=== PATIENT | male | born 1950 | race Caucasian/White ===

== ENCOUNTER 2016-12-10 11:12 | Inpatient (IN) ==
[2016-12-10] MEDS ORDERED: Ipratropium/Albuterol Neb 3 ML IH ONE (11:19)
[2016-12-10] MEDS ORDERED: methylPREDNISolone 125 MG/2 ML VIAL IVP ONE (11:19)
--- NOTE | 2016-12-10 11:24 | Emergency Department Note ---
Disposition Clinical Impression: Acute exacerbation of chronic obstructive airways disease, Elevated troponin Disposition: Admitted As Inpatient Condition: Good Time of Disposition: 13:04 General Adult HPI - General Chief complaint: ED Shortness of Breath/Dyspnea Stated complaint: shortness of breath, chest heaviness Time Seen by Provider: 12/10/16 11:18 Nursing Notes Reviewed: Yes Vital Signs Reviewed: Yes - History of Present Illness HPI Narrative: 1-1/2 week history of shortness of breath. Significantly worse this morning. One episode of chest pain last night. None at this time. No radiation of the pain. No change in his sputum. Does have a cough that is chronic. - Related Data Home Medications Medication Instructions Recorded Confirmed ALPRAZolam [Xanax 0.25 MG Tablet] 0.25 mg PO BID PRN 12/10/16 12/10/16 Amoxicillin/Clavulanate [Augmentin] 875 mg PO BID 12/10/16 12/10/16 Apixaban [Eliquis] 5 mg PO DAILY 12/10/16 12/10/16 Aspirin [Lo-Dose Aspirin EC] 81 mg PO DAILY 12/10/16 12/10/16 Carvedilol [Coreg] 25 mg PO BID 12/10/16 12/10/16 Furosemide [Lasix] 40 mg PO DAILY PRN 12/10/16 12/10/16 Gabapentin [Neurontin] 300 mg PO QPM 12/10/16 12/10/16 Gabapentin [Neurontin] 600 mg PO HS 12/10/16 12/10/16 Insulin NPH Human Isophane 30 unit SQ QPM 12/10/16 12/10/16 [Novolin N] Insulin NPH Human Isophane 50 unit SQ QAM 12/10/16 12/10/16 [Novolin N] Insulin Regular, Human [Novolin R] 20 - 50 unit SQ TID 12/10/16 12/10/16 Lisinopril 2.5 mg PO DAILY 12/10/16 12/10/16 Loratadine [Claritin] 10 mg PO DAILY PRN 12/10/16 12/10/16 Potassium Chloride [K-Tab ER] 20 meq PO DAILY 12/10/16 12/10/16 Ropinirole HCl [Requip] 0.25 mg PO HS 12/10/16 12/10/16 Sertraline [Zoloft] 100 mg PO DAILY 12/10/16 12/10/16 Tiotropium [place] [Spiriva 1 puff IH DAILY 12/10/16 12/10/16 Respimat] Allergies Allergy/AdvReac Type Severity Reaction Status Date / Time No Known Drug Allergies Allergy See Verified 12/10/16 13:33 Comments All systems ED: reviewed and negative except as stated. Constitutional: Denies: fever, chills ENT ED: Denies: congestion Cardiovascular: Reports: chest pain (One episode last night. None today.). Denies: palpitations, dyspnea on exertion, syncope Respiratory: Reports: cough (Chronic), dyspnea (Increasingly worse over the past week and a half. Very dyspneic today.). Denies: wheezes Gastrointestinal: Denies: abdominal pain, nausea, vomiting, diarrhea Musculoskeletal: Denies: back pain, neck pain Neurological: Denies: headache, weakness Past Medical History - Past Medical History Medical history: Reports: CHF, COPD, diabetes, hyperlipidemia, hypertension Surgical history: Reports: pacemaker/AICD, other (Cardiac cath x2 with no stent placed.) Psychiatric history: Reports: depression - Social History Smoking Status: Former smoker (Quitted 15 years ago. Used to smoke 1 pack per day for 20~30 years.) Smokeless Tobacco Status: No Alcohol use: Reports: none Drug use: Reports: none Physical Exam - General Limitations: no limitations General appearance: alert, in distress (mild respiratory distress) - Head Head exam: atraumatic, normocephalic, normal inspection - Eye Eye exam: Present: normal appearance, PERRL, EOMI. Absent: scleral icterus - ENT ENT exam: normal exam, normal oropharynx, mucous membranes moist - Neck Neck exam: Present: normal inspection, full ROM, trachea midline. Absent: tenderness - Chest Chest inspection: Present: normal inspection, symmetric chest wall rise. Absent : tenderness - Respiratory Respiratory exam: Present: respiratory distress, wheezes (Mild.) - Cardiovascular Cardiovascular exam: Present: regular rate, normal rhythm, normal heart sounds - Abdominal Exam Abdominal exam: Present: soft, Non-Tender, normal bowel sounds. Absent: tenderness, distention, guarding, rebound, rigidity, organomegaly - Extremities Exam Extremities exam: Present: normal inspection, full ROM, normal capillary refill. Absent: tenderness, pedal edema - Back Exam Back exam: Present: normal inspection, full ROM. Absent: tenderness - Neurological Exam Neurological exam: Present: alert, oriented X3 - Psychiatric Psychiatric exam: Present: normal affect, normal mood - Skin Skin exam: Present: warm, dry, intact, normal color. Absent: rash, cyanosis, diaphoresis Course Course Narrative: Male patient presenting to the emergency department by EMS. Patient was found on the court steps. Complaining of shortness of breath. He had a group meeting today at the [facility]. He states that he has been increasingly short of breath over the past week and a half. It got worse this morning. He denies any change in his cough. He states he does occasionally have a green sputum but this is no different than normal. Does have a history of CHF. Chronically wears oxygen. He is alert and oriented 3 and breathing with pursed lips at this time. His lung sounds are remarkably clear however he just received a DuoNeb in the ambulance. Patient is obese. His heart tones are normal. His abdomen is soft and nontender. He denies any fevers or chills. He states that he had a fleeting episode of chest pain last night but denies any at this time. He described it as a pressure in the center of his chest. We will do a cardiac workup and get a chest x-ray. We will also give patient another DuoNeb while he is here and place him on steroids. - Reevaluation(s) Reevaluation #1: Patient reassessed. He states that he is feeling somewhat better. He is 91% on 3 L. He still appears slightly dyspneic. His lung sounds are clear. He still denies chest pain. There is no ST elevation or depression noted on his EKG. We will admit patient for COPD exacerbation as well as increased troponin. Time: 13:02 Vital Signs Temperature 97.7 F 12/10/16 11:14 Pulse Rate 91 12/10/16 11:14 Respiratory Rate 24 12/10/16 11:14 Blood Pressure 122/83 12/10/16 11:14 O2 Sat by Pulse Oximetry 96 12/10/16 11:14 Temperature 97.7 F 12/10/16 11:14 Pulse Rate 98 12/10/16 13:09 Respiratory Rate 22 12/10/16 14:31 Blood Pressure 144/73 12/10/16 14:31 O2 Sat by Pulse Oximetry 94 12/10/16 13:09 Oxygen Delivery Oxygen Delivery Nasal Cannula Medical Decision Making - Medical Records Medical records reviewed: Yes I reviewed the patient's medical records. - Lab Data Lab results reviewed: Yes I reviewed the patient's lab results. Result diagrams: 12/10/16 11:36 12/10/16 11:36 Lab Results 12/10/16 12/10/16 12/10/16 Range/Units 11:36 11:36 11:36 WBC 13.6 H (4.3-11.1) K/mcL RBC 5.53 H (4.19-5.50) M/mcL Hgb 14.8 (12.9-16.9) g/dL Hct 45.8 (37.5-50.1) % MCV 82.8 L (83.0-100.0) fL MCH 26.8 L (28.0-33.3) pg MCHC 32.3 (31.6-35.5) g/dL RDW 15.2 H (11.5-14.5) % Plt Count 203 (140-400) K/mcL MPV 10.9 (9.4-12.4) fL Immature Gran % 1.1 (0-4) % Seg Neutrophils % 78.9 % Lymphocytes % 13.1 % Monocytes % 5.9 % Eosinophils % 0.6 % Basophils % 0.4 % Neutrophils # 10.8 H (1.6-8.9) K/mcL Lymphocytes # 1.8 (0.6-4.6) K/mcL Monocytes # 0.8 (0.0-1.3) K/mcL Eosinophils # 0.1 (0.0-0.6) K/mcL Basophils # 0.1 (0.0-0.2) K/mcL Sodium 132 L (136-145) mEq/L Potassium 4.4 (3.5-4.5) mEq/L Chloride 95 L (98-109) mEq/L Carbon Dioxide 24 (19-29) mEq/L BUN 23 (8-26) mg/dL Creatinine 1.23 (0.72-1.25) mg/dL Est GFR ( Amer) > 60 (> 60) Est GFR (Non-Af Amer) 59 L (> 60) BUN/Creatinine Ratio 19 (6-26) Glucose 356 H (70-99) mg/dL Calculated Osmolality 292 (280-300) Calcium 10.2 (8.6-10.8) mg/dL Troponin I 0.04 H* (0-0.03) ng/mL B-Natriuretic Peptide (0-100) pg/mL 12/10/16 Range/Units 11:36 WBC (4.3-11.1) K/mcL RBC (4.19-5.50) M/mcL Hgb (12.9-16.9) g/dL Hct (37.5-50.1) % MCV (83.0-100.0) fL MCH (28.0-33.3) pg MCHC (31.6-35.5) g/dL RDW (11.5-14.5) % Plt Count (140-400) K/mcL MPV (9.4-12.4) fL Immature Gran % (0-4) % Seg Neutrophils % % Lymphocytes % % Monocytes % % Eosinophils % % Basophils % % Neutrophils # (1.6-8.9) K/mcL Lymphocytes # (0.6-4.6) K/mcL Monocytes # (0.0-1.3) K/mcL Eosinophils # (0.0-0.6) K/mcL Basophils # (0.0-0.2) K/mcL Sodium (136-145) mEq/L Potassium (3.5-4.5) mEq/L Chloride (98-109) mEq/L Carbon Dioxide (19-29) mEq/L BUN (8-26) mg/dL Creatinine (0.72-1.25) mg/dL Est GFR ( Amer) (> 60) Est GFR (Non-Af Amer) (> 60) BUN/Creatinine Ratio (6-26) Glucose (70-99) mg/dL Calculated Osmolality (280-300) Calcium (8.6-10.8) mg/dL Troponin I (0-0.03) ng/mL B-Natriuretic Peptide 115 H (0-100) pg/mL - Radiology Data Radiology results reviewed: Yes I reviewed the patient's radiology results. - EKG Data EKG #1 EKG attestation: Yes I reviewed and interpreted this EKG. EKG results narrative: Normal sinus rhythm at a rate of 93. VT interval is 183. Voodoo is 88. QT is 340. QTC is 391. No signs of acute ischemia. No significant EKG changes from previous EKG dated 08/14/2015. Attestation Statement - Attestation Attestation: I examined this patient and my medical decision-making was reviewed with the INSTRUMENT MAINTENANCE SUPERVISOR/PA/Advanced Practice Nurse/Resident Physician. I agree with the documented findings, disposition and treatment plan as described except to the extent set forth below. Patient emergency with shortness of breath. Positive chest pain last night but none today. Cough. No fever. Patient was found [place] the court [place] steps. On exam he is tachypneic. Expiratory wheezing. Plan. Patient improved with 2 nebs from medics. Improved after another when here. Steroids were given. Chest x-ray is unchanged from prior. EKG has no ischemic changes. He does have a troponin 0.04 for which she was given an aspirin. He is having no active chest pain at this time. He is admitted to medicine.
[2016-12-10 11:43] LABS: Basophils # 0.1 K/mcL (0.0-0.2); Basophils % 0.4 %; Eosinophils # 0.1 K/mcL (0.0-0.6); Eosinophils % 0.6 %; Hematocrit 45.8 % (37.5-50.1); Hemoglobin 14.8 g/dL (12.9-16.9); Immature Granulocytes % 1.1 % (0-4); Lymphocytes # 1.8 K/mcL (0.6-4.6); Lymphocytes % 13.1 %; Mean Corpuscular HGB Conc 32.3 g/dL (31.6-35.5); Mean Corpuscular Hemoglobin 26.8 pg (28.0-33.3); Mean Corpuscular Volume 82.8 fL (83.0-100.0); Mean Platelet Volume 10.9 fL (9.4-12.4); Monocytes # 0.8 K/mcL (0.0-1.3); Monocytes % 5.9 %; Neutrophils # 10.8 K/mcL (1.6-8.9); Platelet Count 203 K/mcL (140-400); Red Blood Count 5.53 M/mcL (4.19-5.50); Red Cell Distribution Width 15.2 % (11.5-14.5); Segmented Neutrophils % 78.9 %
[2016-12-10] MEDS ORDERED: Ondansetron 4 MG/2 ML VIAL IVP ONE (11:52)
[2016-12-10 11:55] LABS: BUN/Creatinine Ratio 19 (6-26); Blood Urea Nitrogen 23 mg/dL (8-26); Calcium 10.2 mg/dL (8.6-10.8); Carbon Dioxide 24 mEq/L (19-29); Chloride 95 mEq/L (98-109); Glucose 356 mg/dL (70-99); Osmolality,Calculated 292 (280-300); Potassium 4.4 mEq/L (3.5-4.5); Sodium 132 mEq/L (136-145); eGFR For African Americans > 60 (> 60); eGFR For Non-African Americans 59 (> 60)
--- NOTE | 2016-12-10 13:32 | Event Note ---
Date of Encounter: 12/10/16 Time of Encounter: 13:29 Patient seen and examined with nurse practitioner. Patient with history of COPD and non-ischemic cardiomyopathy with severe LV dysfunction presents with shortness of breath. Acute COPD exacerbation and an element of acute congestive heart failure. IV steroids and [id number] nebulizer treatments. Also give the patient IV Lasix. Slight increase in oxygen requirements. Currently on 3 L of oxygen. Expensive hospital stay 48-72 hours. Inpatient admission.
[2016-12-10] MEDS ORDERED: Aspirin 81 MG TAB.CHEW PO STA (13:54)
[2016-12-10] MEDS ORDERED: Ondansetron 4 MG/2 ML VIAL IVP PRN (14:22)
[2016-12-10] MEDS ORDERED: Naloxone 0.4 MG/ML INJ IVP PRN (14:22)
[2016-12-10] MEDS ORDERED: Albuterol 2.5 MG/3 ML NEBULIZER IH PRN (14:26)
[2016-12-10] MEDS ORDERED: ALPRAZolam 0.25 MG TABLET PO PRN (14:28)
[2016-12-10] MEDS ORDERED: *HR* Dextrose 50 % in Water (Syg) 50 ML SYRINGE IVP PRN (14:38)
[2016-12-10] MEDS ORDERED: Dextrose Gel 15 GM PO PRN ×2 (14:38)
[2016-12-10] MEDS ORDERED: D5% in Water 1,000 ML IVC PRN (14:38)
--- NOTE | 2016-12-10 14:45 | Internal Med History&Physical ---
Date of Encounter: 12/10/16 Time of Encounter: 13:30 Assessment and Plan (1) Acute exacerbation of chronic obstructive airways disease Current visit: Yes Status: Acute 1 patient has history of COPD and is oxygen dependent. He has been experiencing increasing shortness of breath for the past week despite the use of oxygen as well as bronchodilators. Presently his lung sounds are clear. We will continue with oxygen titrated to maintain SPO2 greater than 92% 2 continue bronchodilators 3 give a steroid- taper 4 patient has been producing green sputum we will give him Levaquin (2) CHF (congestive heart failure) Current visit: Yes Status: Acute 1 patient is experiencing increasing shortness of breath he states he is taking his medication as prescribed. Review of records echo not determined EF however patient states it is approximately 15%. Patient does have pacemaker AICD. We will give IV Lasix for now 2 monitor intake and output daily weights 3 sodium diet 4 fluid restriction 5 we will obtain cardiac echo Qualifiers: Congestive heart failure type: systolic Congestive heart failure chronicity : chronic Qualified Code(s): I50.22 - Chronic systolic (congestive) heart failure (3) Diabetes Current visit: No Status: Chronic 1 Accu-Cheks before meals at bedtime for sinus scale insulin as well as basal. Goal is to maintain postprandial less than 180. 2 diabetic diet Qualifiers: Diabetes mellitus type: type 2 Diabetes mellitus complication status: without complication 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: with fpc use Qualified Code(s): E11.9 - Type 2 diabetes mellitus without complications ; Z79.4 - exterminator termite (current) use of insulin (4) DVT prophylaxis Current visit: No Status: Acute Patient is on Elavil plus Internal Medicine - H&P: HPI Chief complaint: Shortness of breath Admitted From: Emergency Dept Plans for Post Hospital Care: Home History of present illness: Mr. Wright is a 66 year old male past medical history of diabetes coronary disease congestive heart failure with pacemaker AICD COPD on oxygen DVT. According to the patient for the past week he has been expressing increasing shortness of breath as well as cold symptoms. His sisters of breath did improve at times with use of bronchodilators and he has been coughing up some green sputum which is new. He denies any fevers or chills. He has been expressing chest tightness off and on for the past 3 days midsternal nonradiating there are no aggravating or relieving factors. He states the episodes are brief and resolve on own. Today he was sitting on the courthouse steps was expected C increasing shortness of breath he was brought to the ER for evaluation. According E were our records on presentation patient was pursed breathing oxygen saturating 94% patient was given DuoNeb which did improve his breathing. He was admitted for further workup evaluation. Present patient is on. Respiratory distress his lung sounds are clear he does have some +1 pitting edema bilaterally to lower extremities. Heart sounds S1-S2 no rubs gallops clicks murmurs noted he is hemodynamically stable this time review this case with Dr. Farrell who agrees with plan Past Med Surg Social Fam HX - Past Medical History Medical history: CHF, COPD, diabetes, hyperlipidemia, hypertension Psychiatric history: depression - Past Surgical History Surgical History: pacemaker/AICD, other (Cardiac cath x2 with no stent placed.) - Social History Smoking Status: Former smoker (Quitted 15 years ago. Used to smoke 1 pack per day for 20~30 years.) Smokeless Tobacco Status: No Alcohol use: none Drug use: none - Family History Mother Living Status: Hx Family Cancer: Yes (brain tumor) Father Living Status: Hx Family Respiratory Disorders: Yes (COPD) Hx Family Endocrine Disorder: Yes (DM) Internal Medicine - H&P: Meds ALPRAZolam [Xanax 0.25 MG Tablet] 0.25 mg PO BID PRN 12/10/16 [History] Amoxicillin/Clavulanate [Augmentin] 875 mg PO BID 12/10/16 [History] Apixaban [Eliquis] 5 mg PO DAILY 12/10/16 [History] Aspirin [Lo-Dose Aspirin EC] 81 mg PO DAILY 12/10/16 [History] Carvedilol [Coreg] 25 mg PO BID 12/10/16 [History] Furosemide [Lasix] 40 mg PO DAILY PRN 12/10/16 [History] Gabapentin [Neurontin] 300 mg PO QPM 12/10/16 [History] Gabapentin [Neurontin] 600 mg PO HS 12/10/16 [History] Insulin NPH Human Isophane [Novolin N] 30 unit SQ QPM 12/10/16 [History] Insulin NPH Human Isophane [Novolin N] 50 unit SQ QAM 12/10/16 [History] Insulin Regular, Human [Novolin R] 20 - 50 unit SQ TID 12/10/16 [History] Lisinopril 2.5 mg PO DAILY 12/10/16 [History] Loratadine [Claritin] 10 mg PO DAILY PRN 12/10/16 [History] Potassium Chloride [K-Tab ER] 20 meq PO DAILY 12/10/16 [History] Ropinirole HCl [Requip] 0.25 mg PO HS 12/10/16 [History] Sertraline [Zoloft] 100 mg PO DAILY 12/10/16 [History] Tiotropium [place] [Spiriva Respimat] 1 puff IH DAILY 12/10/16 [History] Allergies No Known Drug Allergies Allergy (Verified 12/10/16 13:33) See Comments All Systems PM: A 10-system review of systems was performed and is negative for pertinent findings except as documented above in the HPI. - Constitutional Constitutional: no chills, no fever(s), no night sweats - EENT Eyes: no change in vision, no discharge, no pain, no photophobia Nose, mouth and throat: no dysphagia, no nasal discharge, no neck pain, no sore throat - Cardiovascular Cardiovascular ROS IM: chest pain - Respiratory Respiratory: cough, dyspnea, change in phlegm color - Gastrointestinal Gastrointestinal: no abdominal pain, no diarrhea, no hematemesis, no hematochezia, no melena, no nausea, no vomiting - Musculoskeletal Musculoskeletal ROS IM: no numbness, no tingling - Integumentary Integumentary IM: no rash, no unusual bruising - Neurological Neurological ROS: no confusion, no convulsions, no focal weakness, no numbness, no tingling, no tremor(s) - Constitutional Vitals: Temp Pulse Resp BP Pulse Ox 97.7 F 98 22 144/73 94 12/10/16 11:14 12/10/16 13:09 12/10/16 14:31 12/10/16 14:31 12/10/16 13:09 General appearance: Present: A&O X 3, answers questions appropriately - Head Head exam: Present: atraumatic, normocephalic - Eye Eye exam: Present: PERRL, conjuntiva pink, sclera anicteric Pupils: Present: PERRL - Neck Neck exam general surgery: Present: supple, trachea midline. Absent: lymphadenopathy - Respiratory Respiratory exam: Present: CTAB - Cardiovascular Cardiovascular exam: Present: RRR, +S1, +S2. Absent: diastolic murmur, gallop, rubs, systolic murmur - GI/Abdominal GI/Abdominal exam: Present: normal bowel sounds, soft, no peritoneal signs. Absent: distended, tenderness - Extremities Exam Extremities exam: Present: warm, radial pulses palpable and symetrical. Absent : calf tenderness, cyanotic, pedal edema - Neurological Exam Neurological exam: Present: CN II-XII intact, oriented X3, no focal deficits. Absent: pronater drift, facial droop, speech deficit - Skin Skin exam: Present: dry, intact Internal Med - H&P Results - Labs CBC & Chem 7: 12/10/16 11:36 12/10/16 11:36 - EKG Data EKG shows normal: sinus rhythm - EKG Data Prior EKG available for review: yes When compared to previous EKG: there is no significant change - Diagnostic Studies Other Images Additional comments: Chest X-Ray 12/10/16 11:19 IMPRESSION: Stable appearance of the chest without acute cardiopulmonary process identified. D/ / Jayden Bautista MD / Jayden Bautista MD Interpreting Provider: Jayden Bautista MD
[2016-12-10] MEDS: Ipratropium/Albuterol Neb 3 ML IH SCH ×3 (15:29→23:10)
[2016-12-10] MEDS ORDERED: Insulin LISPRO 300 UNITS/3 ML VIAL SQ SCH ×2 (16:30→21:00)
[2016-12-10] MEDS ORDERED: Ipratropium/Albuterol Neb 3 ML IH SCH (17:00)
[2016-12-10] MEDS: Levofloxacin 500 MG/100 ML 500 MG/100 ML BAG IVPB SCH (17:23)
[2016-12-10] MEDS: Gabapentin 300 MG CAPSULE PO SCH ×2 (17:24→21:05)
--- NOTE | 2016-12-10 17:29 | Electrocardiograph Report ---
[place] [employer] Test Date: 2016-12-10 Pat Name: Angel Wright Department: 105 Room: 2A43 Gender: M Inspector Handbag Frames: : 1950 Requested By: Nieves Rice Order Number: [id number] Reading MD: Oral Mcduffie MD Measurements Intervals [place] Rate: 93 P: 13 TX: 183 QRS: -45 QRSD: 88 T: 109 QT: 340 QTc: 391 Interpretive Statements SINUS RHYTHM ANTERIOR MYOCARDIAL INFARCTION [40+ ms Q WAVE AND/OR ST/T ABNORMALITY IN V3/V4], OF INDETERMINATE AGE INFERIOR MYOCARDIAL INFARCTION [40+ ms Q WAVE AND/OR ST/T ABNORMALITY IN II/aVF], OF INDETERMINATE AGE INTERPRETATION BASED ON A DEFAULT AGE OF 40 YEARS Electronically Signed On 12-10-2016 17:27:30 EDT by Oral Mcduffie MD
[2016-12-10] MEDS ORDERED: Insulin NPH 100 UNIT/ML (x5UNIT) SQ SCH (18:00)
[2016-12-10] MEDS ORDERED: methylPREDNISolone 125 MG/2 ML VIAL IM SCH (18:00)
[2016-12-10] MEDS: rOPINIRole 0.25 MG TABLET PO SCH (21:05)
[2016-12-10] MEDS ORDERED: Insulin LISPRO 300 UNITS/3 ML VIAL SQ ONE (23:15)
[2016-12-10] MEDS: methylPREDNISolone 125 MG/2 ML VIAL IVP SCH (23:45)
[2016-12-11] MEDS ORDERED: Insulin LISPRO 300 UNITS/3 ML VIAL SQ ONE (02:26)
[2016-12-11] MEDS: Ipratropium/Albuterol Neb 3 ML IH SCH ×5 (04:27→20:17)
[2016-12-11 04:52] LABS: Hematocrit 43.2 % (37.5-50.1); Hemoglobin 13.9 g/dL (12.9-16.9); Lymphocytes % 6.6 %; Mean Corpuscular HGB Conc 32.2 g/dL (31.6-35.5); Mean Corpuscular Hemoglobin 26.7 pg (28.0-33.3); Mean Corpuscular Volume 83.1 fL (83.0-100.0); Mean Platelet Volume 11.8 fL (9.4-12.4); Platelet Count 183 K/mcL (140-400); Segmented Neutrophils % 89.7 %
[2016-12-11 04:53] LABS: Basophils % 0.1 %; Lymphocytes # 0.7 K/mcL (0.6-4.6); Monocytes # 0.3 K/mcL (0.0-1.3); Monocytes % 2.6 %; Neutrophils # 9.6 K/mcL (1.6-8.9)
[2016-12-11 05:05] LABS: Blood Urea Nitrogen 29 mg/dL (8-26); Carbon Dioxide 22 mEq/L (19-29); Chloride 99 mEq/L (98-109); Potassium 4.6 mEq/L (3.5-4.5); Sodium 133 mEq/L (136-145)
[2016-12-11 05:06] LABS: BUN/Creatinine Ratio 22 (6-26); Calcium 9.6 mg/dL (8.6-10.8); Glucose 467 mg/dL (70-99); Osmolality,Calculated 302 (280-300); eGFR For African Americans > 60 (> 60); eGFR For Non-African Americans 55 (> 60)
[2016-12-11 05:46] LABS: Platelet Estimate Normal (Normal)
[2016-12-11] MEDS: methylPREDNISolone 125 MG/2 ML VIAL IVP SCH (06:00)
[2016-12-11] MEDS ORDERED: Acetaminophen 325 MG TABLET PO ONE (06:47)
[2016-12-11] MEDS ORDERED: Perflutren Lipid Microsphere 1.3 ML in 0.9 % Sodium Chloride 8.7 ML IVP ONE (07:25)
[2016-12-11] MEDS: Aspirin Enteric Coated 81 MG Tablet PO SCH (08:58)
[2016-12-11] MEDS ORDERED: APIXABAN 5 MG TABLET PO SCH (09:00)
[2016-12-11] MEDS ORDERED: Insulin NPH 100 UNIT/ML (x5UNIT) SQ SCH (09:00)
[2016-12-11] MEDS ORDERED: Furosemide 40 MG/4 ML VIAL IVP SCH (09:00)
[2016-12-11] MEDS: Insulin LISPRO 300 UNITS/3 ML VIAL SQ SCH ×2 (09:24→12:32)
[2016-12-11] MEDS: APIXABAN 5 MG TABLET PO SCH ×2 (09:24→20:57)
--- NOTE | 2016-12-11 09:52 | ECHO - Doppler Report ---
Echo with Imaging Enhancement Agent Name: Angel Wright Date of Study: 12/11/2016 Date: 1950 Ht: 72.0 in Medical Record#: [id number] Age: 66 Wt: 364.0 lb Gender: Male BSA: 2.75 Order #: [id number] Location: [facility] Room #: 2A43 Reading Physician: Felisha Iverson DO Tool Grinder Operator: Jewels Ardon Ordering Physician: Camille Freed CNP Primary Physician: Dana Hart MD Indications: Shortness of breath Impressions: Technically challenging study with suboptimal windows. With use of Definity, LV systolic function appears normal. RV size visually appears mildly dilated. Function is normal in images visualized. Doppler evidence for borderling aortic stenosis. No significant TR gradient to suggest the presence of pulmonary hypertension. IVC is not well visualized. Left Ventricular Wall Motion: Rest Echo Findings The apex, apical inferior, mid inferior, basal inferior, apical anterior, mid anterior and basal anterior bryant were not visualized. All other wall segments showed normal motion. Findings: Study Quality * Technically sub-optimal due to body habitus. Suboptimal windows, off-axis measurements. ECG Findings * Sinus rhythm with BBB. Aortic Valve * No aortic regurgitation. * Aortic valve not well visualized. * Doppler evidence for borderline aortic stenosis. PV 1.8m/s, MG 8 mmHg, DI 0.49, BRITTNY 1.5 cm2 Mitral Valve * No mitral regurgitation. * No mitral stenosis. * Normal mitral valve structure. Tricuspid Valve * Tricuspid valve not well visualized. * Trace tricuspid regurgitation. Pulmonic Valve * Pulmonic valve is not well visualized. * No pulmonic stenosis. * No pulmonic regurgitation. Pulmonary Artery * Pulmonary artery not well visualized. Right Ventricle * RV is not well visualized in all views. In visualized view, it appears normal in function. Visually, mildly dilated. Aorta * Not well visualized. Left Atrium * Normal left atrial size. Right Atrium * Right atrium is not well visualized. Left Ventricle * Indeterminate diastolic function. * Suboptimal LV measurements due to poor PLAX window. * Definity echo contrast was used. * LV systolic function appears normal with use of Definity. Interatrial Septum * Interatrial septum not well evaluated. IVC * The IVC is not well evaluated. History Hypertension Diabetes Hypercholesteremia Years 45 Packs 2 Family History of CAD History of CAD/PTCA Myocardial Infarction Congestive Heart Failure Pacer/ICD Implant 08/13/2015 a Previous Echo was performed. Contrast: Definity 1.3 ml in 8.7 ml of saline 2 ml. Measurements: BP: 124/ 71 2D Normal Values RVIDd: 3.60 cm <2.7 cm IVSd: 1.75 cm 0.6 - 1.0 cm LVIDd: 5.80 cm 3.7 - 5.6 cm LVPWd: 1.75 cm 0.6 - 1.1 cm LVIDs: 5.10 cm 1.5 - 3.6 cm AO: 3.60 cm < 4.0 cm LA: 5.40 cm 2.0 - 4.0cm %FS: 12.10 cm >25 % LVOT Diam: 2.20 cm LA volume: 90 Mitral Valve Peak E:.67 m/sec Peak A:.64 m/sec E/A Ratio:1 Peak E' Lat Murray:8.29 cm/s Peak E' Med Murray:4.87 cm/s E/E' Lat Ratio:8 E/E' Med Ratio:13.7 LVOT Peak Murray:.78 m/sec Mean Murray:.57 m/sec Peak Grad:2.00 mmHg Mean Grad:1.00 mmHg Aortic Valve Peak Murray:2.50 m/sec Mean Murray:1.72 m/sec Peak Grad:25.00 mmHg Mean Grad:14.00 mmHg Valve Area:1.31 cm2 Tricuspid Valve TV Regurg Peak Grad: 12.00mmHg TV Regurg Peak Murray: 1.71m/sec Updated by Felisha Iverson on 12/11/2016 9:47:46 AM electronically signed on 12/11/2016 9:48:47 AM with status of Final Wall Motion Felipe: 1=Normal, 2=Hypokinesis, 3=Akinesis, 4=Dyskinesis, 5=Aneurysmal, 6=Hyperkinetic, X=Not Visualized (Blank)=Missing
[2016-12-11] MEDS: Tiotropium 18 MCG inhalation IH SCH (10:52)
--- NOTE | 2016-12-11 11:14 | Internal Med Progress Note ---
Date of Encounter: 12/11/16 Time of Encounter: 11:12 - Assessment and plan (1) CHF (congestive heart failure) Current Visit: Yes Status: Acute Assessment and plan: I will switch Lasix to PO today. He received IV Lasix yesterday and this morning. Improvement in his respiratory status. Qualifiers: Congestive heart failure type: systolic Congestive heart failure chronicity : chronic Qualified Code(s): I50.22 - Chronic systolic (congestive) heart failure (2) Diabetes Current Visit: No Status: Chronic Assessment and plan: Uncontrolled diabetes because of steroids. IV steroids switched to oral steroids. Continue long-acting insulin. Continue premium insulin every 4 hours. Increased scale to moderate scale. Qualifiers: Diabetes mellitus type: type 2 Diabetes mellitus complication status: without complication Diabetes mellitus alf insulin use: with alf use Qualified Code(s): E11.9 - Type 2 diabetes mellitus without complications ; Z79.4 - senior living (current) use of insulin (3) Acute exacerbation of chronic obstructive airways disease Current Visit: Yes Status: Acute Assessment and plan: Improvement over respiratory status. Will continue kill for our nebulizer treatments. Switch steroids to oral steroids. He is on Levaquin for acute bronchitis. - Constitutional Vitals: Temp Pulse Resp BP Pulse Ox 97.4 F L 80 20 124/71 96 12/11/16 06:43 12/11/16 06:43 12/11/16 06:43 12/11/16 06:43 12/11/16 06:43 General appearance: Present: A&O X 3, answers questions appropriately Exam: Gen.: patient is alert oriented times 3 not in distress. Cardiac: normal S1 S2 no additional sounds or murmurs chest: fair air entry. expiratory wheeze. No crackles or bronchial breathing. abdomen: soft nontender nondistended normal bowel sounds neuro: no focal deficit LE" trace swelling Internal Medicine: Result - Labs CBC & Chem 7: 12/11/16 04:15 12/11/16 04:15 Labs: Short CBC 12/11/16 Range/Units 04:15 WBC 10.7 (4.3-11.1) K/mcL Hgb 13.9 (12.9-16.9) g/dL Hct 43.2 (37.5-50.1) % Plt Count 183 (140-400) K/mcL Neutrophils # 9.6 H (1.6-8.9) K/mcL BMP 12/11/16 04:15 Sodium 133 L Potassium 4.6 H Chloride 99 Carbon Dioxide 22 BUN 29 H Creatinine 1.32 H Glucose 467 H Calcium 9.6 Cardiac Enzymes 12/10/16 12/10/16 Range/Units 17:23 23:58 Troponin I 0.02 0.03 (0-0.03) ng/mL Consult Discharge Plan - Plan Referrals: Myles Hart MD [Primary Care Provider] -
[2016-12-11] MEDS ORDERED: MethylPREDNISolone 40 MG/ML VIAL IVP SCH (12:00)
[2016-12-11] MEDS ORDERED: Insulin LISPRO 300 UNITS/3 ML VIAL SQ SCH (12:00)
[2016-12-11] MEDS: predniSONE 20 MG TABLET PO SCH (12:33)
[2016-12-11] MEDS: 0.9 % Sodium Chloride 500 ML IVC ONE ×2 (12:34→14:47)
[2016-12-11 13:24] LABS: Calcium 9.6 mg/dL (8.6-10.8); Potassium 4.4 mEq/L (3.5-4.5)
[2016-12-11] MEDS: Insulin Human Regular 100 UNIT in 0.9 % Sodium Chloride 100 ML IVC SCH ×2 (14:38→21:45)
[2016-12-11] MEDS ORDERED: 0.9 % Sodium Chloride 500 ML ONE (14:45)
[2016-12-11] MEDS: Fluticasone Propionate Nasal 50 MCG/SPRAY BOTTLE NS SCH (17:11)
[2016-12-11] MEDS: Gabapentin 300 MG CAPSULE PO SCH ×2 (17:14→20:56)
[2016-12-11] MEDS: Levofloxacin 500 MG/100 ML 500 MG/100 ML BAG IVPB SCH (18:27)
[2016-12-11] MEDS: rOPINIRole 0.25 MG TABLET PO SCH (20:57)
[2016-12-11] MEDS: Acetaminophen 325 MG TABLET PO PRN (22:17)
[2016-12-12] MEDS: Ipratropium/Albuterol Neb 3 ML IH SCH ×7 (00:03→23:19)
[2016-12-12 05:05] LABS: Basophils % 0.2 %; Hematocrit 40.3 % (37.5-50.1); Hemoglobin 13.1 g/dL (12.9-16.9); Immature Granulocytes % 1.2 % (0-4); Lymphocytes # 1.3 K/mcL (0.6-4.6); Lymphocytes % 10.4 %; Mean Corpuscular HGB Conc 32.5 g/dL (31.6-35.5); Mean Corpuscular Hemoglobin 27.3 pg (28.0-33.3); Mean Platelet Volume 11.5 fL (9.4-12.4); Neutrophils # 10.3 K/mcL (1.6-8.9); Platelet Count 174 K/mcL (140-400); Segmented Neutrophils % 80.2 %
[2016-12-12 05:16] LABS: BUN/Creatinine Ratio 39 (6-26); Blood Urea Nitrogen 35 mg/dL (8-26); Carbon Dioxide 27 mEq/L (19-29); Chloride 104 mEq/L (98-109); Glucose 120 mg/dL (70-99); Magnesium 2.2 mg/dL (1.6-2.6); Osmolality,Calculated 297 (280-300); Potassium 4.1 mEq/L (3.5-4.5); Sodium 139 mEq/L (136-145); eGFR For African Americans > 60 (> 60); eGFR For Non-African Americans > 60 (> 60)
[2016-12-12] MEDS: Acetaminophen 325 MG TABLET PO PRN ×2 (06:35→20:27)
[2016-12-12] MEDS: Tiotropium 18 MCG inhalation IH SCH (07:39)
[2016-12-12] MEDS: APIXABAN 5 MG TABLET PO SCH ×2 (07:48→20:28)
[2016-12-12] MEDS: Aspirin Enteric Coated 81 MG Tablet PO SCH (07:48)
[2016-12-12] MEDS: predniSONE 20 MG TABLET PO SCH (07:48)
[2016-12-12] MEDS: Fluticasone Propionate Nasal 50 MCG/SPRAY BOTTLE NS SCH (07:49)
[2016-12-12] MEDS ORDERED: Furosemide 40 MG TABLET PO SCH (09:00)
[2016-12-12] MEDS ORDERED: 0.9 % Sodium Chloride 500 ML ONE (10:58)
[2016-12-12] MEDS ORDERED: *HR* Dextrose 50 % in Water (Syg) 50 ML SYRINGE IVP PRN (13:40)
[2016-12-12] MEDS ORDERED: D5% in Water 1,000 ML IVC PRN (13:40)
[2016-12-12] MEDS ORDERED: Dextrose Gel 15 GM PO PRN ×2 (13:40)
[2016-12-12] MEDS: Furosemide 40 MG TABLET PO SCH (14:02)
[2016-12-12] MEDS: Insulin LISPRO 300 UNITS/3 ML VIAL SQ SCH ×3 (14:07→16:43)
[2016-12-12] MEDS: Insulin DETEMIR 100 UNIT/ML X5UNITS SQ SCH ×2 (14:39→20:31)
[2016-12-12] MEDS: Gabapentin 300 MG CAPSULE PO SCH ×2 (17:30→20:28)
--- NOTE | 2016-12-12 17:50 | Internal Med Progress Note ---
Date of Encounter: 12/12/16 Time of Encounter: 17:47 - Assessment and plan (1) Uncontrolled type 2 diabetes mellitus with insulin therapy Current Visit: Yes Status: Acute Assessment and plan: Likely exacerbated by steroid treatment. He has been on insulin drip for the last 24 hours. We will stop insulin drip as his blood glucose is between 150 and 250. Convert to subcutaneous insulin with 80 units total Levemir daily, but he meal and moderate insulin sliding scale. (2) CHF (congestive heart failure) Current Visit: Yes Status: Acute Assessment and plan: I will continue with oral Lasix, daily weights, strict I's and O's. Qualifiers: Congestive heart failure type: systolic Congestive heart failure chronicity : chronic Qualified Code(s): I50.22 - Chronic systolic (congestive) heart failure (3) DVT prophylaxis Current Visit: No Status: Acute (4) Acute exacerbation of chronic obstructive airways disease Current Visit: Yes Status: Acute Assessment and plan: Oral prednisone 60 mg today and will start tapering tomorrow. Continue with bronchodilators. Antibiotics for bronchitis as a triggering event. - Subjective Interval history: Patient reports improvement in his shortness of breath over the last 2 days with steroid treatment and bronchodilators. He had received Lasix. He was placed on insulin drip yesterday. - Constitutional Vitals: Temp Pulse Resp BP Pulse Ox 97.5 F L 82 20 110/56 96 12/12/16 16:23 12/12/16 16:23 12/12/16 16:24 12/12/16 16:23 12/12/16 16:24 General appearance: Present: A&O X 3, answers questions appropriately - Respiratory Respiratory exam: Present: CTAB. Absent: accessory muscle use, rales, rhonchi, wheezes - Cardiovascular Cardiovascular exam: Present: RRR, +S1, +S2. Absent: diastolic murmur, gallop, rubs, systolic murmur - GI/Abdominal GI/Abdominal exam: Present: normal bowel sounds, soft, no peritoneal signs. Absent: distended, tenderness - Extremities Exam Extremities exam: Present: pedal edema, warm, radial pulses palpable and symetrical. Absent: calf tenderness, cyanotic - Skin Skin exam: Present: dry, intact Internal Medicine: Result - Labs CBC & Chem 7: 12/12/16 04:05 12/12/16 04:05 Labs: Short CBC 12/12/16 Range/Units 04:05 WBC 12.8 H (4.3-11.1) K/mcL Hgb 13.1 (12.9-16.9) g/dL Hct 40.3 (37.5-50.1) % Plt Count 174 (140-400) K/mcL Neutrophils # 10.3 H (1.6-8.9) K/mcL BMP 12/12/16 04:05 Sodium 139 Potassium 4.1 Chloride 104 Carbon Dioxide 27 BUN 35 H Creatinine 0.90 Glucose 120 H Calcium 9.0 Consult Discharge Plan - Plan Referrals: Myles Hart MD [Primary Care Provider] -
[2016-12-12] MEDS ORDERED: levoFLOXacin 500 MG TABLET PO SCH (18:00)
[2016-12-12] MEDS: rOPINIRole 0.25 MG TABLET PO SCH (20:27)
[2016-12-12] MEDS: Nystatin OINT 15 GM TUBE TP SCH (20:33)
[2016-12-12] MEDS ORDERED: Insulin LISPRO 300 UNITS/3 ML VIAL SQ SCH (21:00)
[2016-12-13] MEDS: Ipratropium/Albuterol Neb 3 ML IH SCH ×3 (05:03→11:22)
[2016-12-13 05:11] LABS: Basophils % 0.3 %; Eosinophils % 0.1 %; Hematocrit 43.8 % (37.5-50.1); Hemoglobin 13.8 g/dL (12.9-16.9); Immature Granulocytes % 1.3 % (0-4); Lymphocytes # 2.4 K/mcL (0.6-4.6); Lymphocytes % 27.2 %; Mean Corpuscular HGB Conc 31.5 g/dL (31.6-35.5); Mean Corpuscular Hemoglobin 26.4 pg (28.0-33.3); Mean Corpuscular Volume 83.9 fL (83.0-100.0); Mean Platelet Volume 11.3 fL (9.4-12.4); Monocytes # 0.7 K/mcL (0.0-1.3); Monocytes % 8.4 %; Neutrophils # 5.4 K/mcL (1.6-8.9); Platelet Count 165 K/mcL (140-400); Red Blood Count 5.22 M/mcL (4.19-5.50); Red Cell Distribution Width 14.8 % (11.5-14.5); Segmented Neutrophils % 62.7 %
[2016-12-13 05:22] LABS: BUN/Creatinine Ratio 26 (6-26); Blood Urea Nitrogen 26 mg/dL (8-26); Calcium 8.7 mg/dL (8.6-10.8); Carbon Dioxide 26 mEq/L (19-29); Chloride 100 mEq/L (98-109); Glucose 202 mg/dL (70-99); Osmolality,Calculated 289 (280-300); Sodium 134 mEq/L (136-145); eGFR For African Americans > 60 (> 60); eGFR For Non-African Americans > 60 (> 60)
[2016-12-13] MEDS: Tiotropium 18 MCG inhalation IH SCH (07:56)
[2016-12-13] MEDS: Insulin LISPRO 300 UNITS/3 ML VIAL SQ SCH ×4 (08:04→11:43)
[2016-12-13] MEDS: predniSONE 20 MG TABLET PO SCH (08:04)
[2016-12-13] MEDS: Furosemide 40 MG TABLET PO SCH (08:04)
[2016-12-13] MEDS: APIXABAN 5 MG TABLET PO SCH (08:04)
[2016-12-13] MEDS: Aspirin Enteric Coated 81 MG Tablet PO SCH (08:04)
[2016-12-13] MEDS: Acetaminophen 325 MG TABLET PO PRN (08:06)
[2016-12-13] MEDS: Insulin DETEMIR 100 UNIT/ML X5UNITS SQ SCH (08:07)
[2016-12-13] MEDS: Fluticasone Propionate Nasal 50 MCG/SPRAY BOTTLE NS SCH (08:10)
[2016-12-13] MEDS: Nystatin OINT 15 GM TUBE TP SCH (08:10)
[2016-12-13 11:14] VITALS: BP 112/76
--- NOTE | 2016-12-13 11:36 | Discharge Summary ---
Date of Encounter: 12/13/16 Time of Encounter: 11:34 - Discharge Diagnosis (1) Uncontrolled type 2 diabetes mellitus with insulin therapy Priority: Secondary Status: Acute (2) CHF (congestive heart failure) Priority: Secondary Status: Acute Qualifiers: Congestive heart failure type: systolic Congestive heart failure chronicity : chronic Qualified Code(s): I50.22 - Chronic systolic (congestive) heart failure (3) Acute exacerbation of chronic obstructive airways disease Priority: Primary Status: Acute (4) Respiratory infection Priority: Secondary Status: Acute (5) Morbid obesity with BMI of 45.0-49.9, adult Priority: Secondary Status: Acute (6) Chronic respiratory failure with hypoxia Priority: Secondary Status: Acute - Discharge Medications Prescriptions: Ipratropium/Albuterol Neb [Duoneb] 3 ml IH [id number] PRN #60 inhsol PRN Reason: Shortness of breath levoFLOXacin [Levaquin] 500 mg PO Q24H #7 tablet predniSONE [PredniSONE] 60 mg PO DAILY 14 Days Home Medications: ALPRAZolam [Xanax 0.25 MG Tablet] 0.25 mg PO BID PRN 12/10/16 [History] Apixaban [Eliquis] 5 mg PO BID 12/10/16 [History] Aspirin [Lo-Dose Aspirin EC] 81 mg PO DAILY 12/10/16 [History] Carvedilol [Coreg] 25 mg PO BID 12/10/16 [History] Furosemide [Lasix] 40 mg PO DAILY PRN 12/10/16 [History] Gabapentin [Neurontin] 300 mg PO QPM 12/10/16 [History] Gabapentin [Neurontin] 600 mg PO HS 12/10/16 [History] Insulin NPH Human Isophane [Novolin N] 30 unit SQ QPM 12/10/16 [History] Insulin NPH Human Isophane [Novolin N] 50 unit SQ QAM 12/10/16 [History] Insulin Regular, Human [Novolin R] 20 - 50 unit SQ TID 12/10/16 [History] Lisinopril 2.5 mg PO DAILY 12/10/16 [History] Loratadine [Claritin] 10 mg PO DAILY PRN 12/10/16 [History] Potassium Chloride [K-Tab ER] 20 meq PO DAILY 12/10/16 [History] Ropinirole HCl [Requip] 0.25 mg PO HS 12/10/16 [History] Sertraline [Zoloft] 100 mg PO DAILY 12/10/16 [History] Tiotropium [place] [Spiriva Respimat] 1 puff IH DAILY 12/10/16 [History] Ipratropium/Albuterol Neb [Duoneb] 3 ml IH [id number] PRN #60 inhsol 12/13/16 [Rx] levoFLOXacin [Levaquin] 500 mg PO Q24H #7 tablet 12/13/16 [Rx] predniSONE [PredniSONE] 60 mg PO DAILY 14 Days 12/13/16 [Rx] Allergies/Adverse Reactions: Allergies No Known Drug Allergies Allergy (Verified 12/10/16 13:33) See Comments Procedures/tests Complete & Pending: Procedures Performed prior 72 hours Category Date Time Status EV echocardiogram w enhance Routine Y 12/11/16 14:27 Completed Date of admission: 12/10/16 14:22 Primary care physician: Myles Hart MD - Patient Status Disposition: Home, Self-Care Condition: Good Functional capacity at discharge: uses cane/walker Overall status at discharge: patient is back to baseline - Discharge Instructions Follow Up With: Myles Hart MD [Primary Care Provider] - Additional Instructions: Follow a low-sodium diet, follow-up with primary care physician in 7-10 days. - Diet and Activity Activity: increase activity as tolerated Diet: diabetic diet, low fat, low cholesterol, low salt diet (Fluid restriction of 1500 mL daily) Hospital course: Mr. Wright is a 66 year old male with past medical history significant for type 2 diabetes, coronary artery disease, diastolic heart failure, COPD and morbid obesity who presented to the hospital for increasing shortness of breath and cold symptoms. He was diagnosed with COPD exacerbation and CHF exacerbation and admitted to the medical service. He received treatment with IV steroids, IV antibiotics and Lasix. His symptoms improved and he was transitioned to oral prednisone. Currently reports improvement and his shortness of breath and reports being back to baseline. He will be discharged home on a course of prednisone and Levaquin. He will be restarted on his home dose of Lasix and will resume oxygen by nasal cannula at 2 L/m per his home regimen. He has been instructed to follow a low-sodium diet. He was instructed to follow-up with his primary care physician within the next 7-10 days. He expresses understanding and agreement with the discharge plan. - Time Spent with Patient Total time spent providing and/or coordinating discharge services: - Constitutional Vitals: Temp Pulse Resp BP Pulse Ox 97.6 F 78 96 112/76 96 12/13/16 11:12 12/13/16 11:12 12/13/16 11:22 12/13/16 11:12 12/13/16 11:22 General appearance: Present: A&O X 3, answers questions appropriately - Respiratory Respiratory exam: Present: CTAB. Absent: accessory muscle use, rales, rhonchi, wheezes - Cardiovascular Cardiovascular exam: Present: RRR, +S1, +S2. Absent: diastolic murmur, gallop, rubs, systolic murmur - GI/Abdominal GI/Abdominal exam: Present: normal bowel sounds, soft, no peritoneal signs. Absent: distended, tenderness - Skin Skin exam: Present: dry, intact
== END 2016-12-13 14:13 | disposition home or self-care (01) | DRG 191 ==
LOC: 2ANU 11:12 → EMEROO 11:12 → SUATTDRO 14:22 → 2ANU 14:35
PROVIDERS: ADMIT Hospitalist; ATTEND Internal Medicine

== ENCOUNTER 2017-04-07 14:47 | Inpatient (IN) ==
[2017-04-07] MEDS ORDERED: methylPREDNISolone 125 MG/2 ML VIAL IVP ONE (14:57)
[2017-04-07] MEDS ORDERED: Ipratropium/Albuterol Neb 3 ML IH ONE (14:57)
[2017-04-07 15:33] LABS: Basophils # 0.1 K/mcL (0.0-0.2); Basophils % 0.6 %; Eosinophils # 0.2 K/mcL (0.0-0.6); Eosinophils % 2.1 %; Immature Granulocytes % 1.5 % (0-4); Lymphocytes # 2.1 K/mcL (0.6-4.6); Lymphocytes % 18.7 %; Mean Corpuscular HGB Conc 31.8 g/dL (31.6-35.5); Mean Corpuscular Hemoglobin 25.6 pg (28.0-33.3); Mean Corpuscular Volume 80.6 fL (83.0-100.0); Mean Platelet Volume 11.2 fL (9.4-12.4); Monocytes # 0.7 K/mcL (0.0-1.3); Monocytes % 6.7 %; Neutrophils # 7.8 K/mcL (1.6-8.9); Platelet Count 190 K/mcL (140-400); Red Blood Count 5.46 M/mcL (4.19-5.50); Red Cell Distribution Width 14.6 % (11.5-14.5); Segmented Neutrophils % 70.4 %
[2017-04-07 15:38] LABS: INR 1.1; Prothrombin Time 11.7 Seconds (9.4-12.1)
--- NOTE | 2017-04-07 15:38 | Emergency Department Note ---
Disposition Clinical Impression: Acute exacerbation of chronic obstructive airways disease, Hypoxia Disposition: Admitted As Inpatient Condition: Good Referrals: NONE,PCP [Non-Partnered Physician] - Forms: ED Satisfaction Letter Time of Disposition: 17:45 SOB HPI - General Chief Complaint: ED Shortness of Breath/Dyspnea Stated Complaint: SUZAN Time Seen by Provider: 04/07/17 14:57 Source: patient, EMS Limitations: no limitations Nursing Notes Reviewed: Yes Vital Signs Reviewed: Yes - History of Present Illness 66 yaer old male with HX of COPD/CHF presents to the ED via ems for he complaints of shorness of breath that has been worsening over the past few days. He continually wears 2LNC at home and is supposed to wear his bipap or cpap at home but has not been doing it because he cannot tolerate it. PAtient denies productive cough and states that he still smokes. He denies chest pain or DVT/PE. He has had multiple ACS workups and without stent placements. He is obese and has pursed lips when breathing or speaking. - Related Data Home Medications Medication Instructions Recorded Confirmed ALPRAZolam [Xanax 0.25 MG Tablet] 0.25 mg PO BID PRN 12/10/16 12/10/16 Apixaban [Eliquis] 5 mg PO BID 12/10/16 12/11/16 Aspirin [Lo-Dose Aspirin EC] 81 mg PO DAILY 12/10/16 12/10/16 Carvedilol [Coreg] 25 mg PO BID 12/10/16 12/10/16 Furosemide [Lasix] 40 mg PO DAILY PRN 12/10/16 12/10/16 Gabapentin [Neurontin] 300 mg PO QPM 12/10/16 12/10/16 Gabapentin [Neurontin] 600 mg PO HS 12/10/16 12/10/16 Insulin NPH Human Isophane 30 unit SQ QPM 12/10/16 12/10/16 [Novolin N] Insulin NPH Human Isophane 50 unit SQ QAM 12/10/16 12/10/16 [Novolin N] Insulin Regular, Human [Novolin R] 20 - 50 unit SQ TID 12/10/16 12/10/16 Lisinopril 2.5 mg PO DAILY 12/10/16 12/10/16 Loratadine [Claritin] 10 mg PO DAILY PRN 12/10/16 12/10/16 Potassium Chloride [K-Tab ER] 20 meq PO DAILY 12/10/16 12/10/16 Ropinirole HCl [Requip] 0.25 mg PO HS 12/10/16 12/10/16 Sertraline [Zoloft] 100 mg PO DAILY 12/10/16 12/10/16 Tiotropium [place] [Spiriva 1 puff IH DAILY 12/10/16 12/10/16 Respimat] Previous Rx's Medication Instructions Recorded Ipratropium/Albuterol Neb [Duoneb] 3 ml IH [id number] PRN #60 inhsol 12/13/16 levoFLOXacin [Levaquin] 500 mg PO Q24H #7 tablet 12/13/16 predniSONE [PredniSONE] 60 mg PO DAILY 14 Days 12/13/16 Allergies Allergy/AdvReac Type Severity Reaction Status Date / Time No Known Drug Allergies Allergy See Verified 12/10/16 13:33 Comments Constitutional: Reports: weakness. Denies: fever, chills, weight change Eyes: Denies: eye pain, eye discharge, vision change ENT ED: Denies: ear pain, throat pain, dental pain, hearing loss, epistaxis, congestion, dysphagia Cardiovascular: Reports: chest pain. Denies: palpitations, dyspnea on exertion , edema, syncope Respiratory: Reports: dyspnea, wheezes. Denies: cough, hemoptysis, stridor Gastrointestinal: Denies: abdominal pain, nausea, vomiting, diarrhea, constipation, hematemesis, melena, hematochezia Genitourinary: Denies: urgency, dysuria, frequency, hematuria Musculoskeletal: Denies: back pain, neck pain, arthralgia, myalgia Integumentary: Denies: rash, abrasion, lesions Neurological: Denies: headache, weakness, numbness, paresthesias, confusion, abnormal gait, vertigo Psychiatric: Denies: anxiety, depression, suicidal thoughts, homicidal thoughts , auditory hallucinations, visual hallucinations Endocrine: Denies: fatigue Hematological/Lymphatic: Denies: easy bleeding, easy bruising Allergic/Immunologic: Denies: facial swelling, urticaria Past Medical History - Past Medical History Medical history: Reports: CHF, COPD, diabetes, hyperlipidemia, hypertension Surgical history: Reports: pacemaker/AICD, other (Cardiac cath x2 with no stent placed.) Psychiatric history: Reports: depression - Social History Smoking Status: Current every day smoker Smokeless Tobacco Status: No Alcohol use: Reports: none Drug use: Reports: none Physical Exam - General Limitations: no limitations General appearance: alert, in no apparent distress, obese - Head Head exam: atraumatic, normocephalic, normal inspection - Eye Eye exam: Present: normal appearance, PERRL, EOMI - Expanded Eye Exam Pupils: Left: reactive - ENT ENT exam: normal exam, normal oropharynx, mucous membranes moist - Expanded ENT Exam External ear exam: Present: normal external inspection Mouth exam: Present: normal external inspection Teeth exam: Present: normal inspection Throat exam: Present: normal inspection - Neck Neck exam: Present: normal inspection, full ROM, trachea midline - Chest Chest inspection: Present: normal inspection, symmetric chest wall rise - Respiratory Respiratory exam: Present: normal lung sounds bilaterally - Expanded Respiratory Exam Location: decreased breath sounds: Left, Right, Upper, Lower - Cardiovascular Cardiovascular exam: Present: regular rate, normal rhythm, normal heart sounds - Abdominal Exam Abdominal exam: Present: soft, Non-Tender. Absent: tenderness, distention, guarding, rebound, rigidity - Extremities Exam Extremities exam: Present: normal inspection, full ROM. Absent: tenderness, pedal edema - Expanded Upper Extremity Exam Shoulder exam: Present: normal inspection, full ROM Arm exam: Present: normal inspection, full ROM Elbow exam: Present: normal inspection, full ROM Forearm/Wrist exam: Present: normal inspection, full ROM Hand exam: Present: normal inspection, full ROM Vascular exam: Normal: capillary refill, radial pulse - Expanded Lower Extremity Exam Hip/Pelvis exam: Present: normal inspection, full ROM Upper leg exam: Present: normal inspection, full ROM Knee exam: Present: normal inspection, full ROM Lower leg exam: Present: normal inspection, full ROM Ankle exam: Present: normal inspection, full ROM Foot/toe exam: Present: normal inspection, full ROM Neurovascular/Tendon exam: Absent: motor deficit, sensory deficit, tendon deficit - Back Exam Back exam: Present: normal inspection, full ROM. Absent: tenderness - Neurological Exam Neurological exam: Present: alert, oriented X3 - Expanded Neurological Exam Patient oriented to: Present: person, place, time Coma Scale Eye Opening: Spontaneous Coma Scale Motor Response: Obeys Commands Coma Scale Verbal Response: Oriented Coma Scale Total: 15 - Psychiatric Psychiatric exam: Present: normal affect, normal mood - Skin Skin exam: Present: warm, dry, intact, normal color Course Course Narrative: we will do a dyspne workup and duonebs/solumedrol and re-assess - Reevaluation(s) Reevaluation #1: updated ptinet on results. WE will walk minda to monitor exetional dyspnea. Time: 17:07 Reevaluation #2: minda failed walk test became hypoxic to 87% on hoome 2LNC, we will admit to medicine. Minda is agreeable to plan. Time: 17:44 - Consultations Consultation #1: discussed case with hospitlist and she has acceptd minda to her service. Time: 18:30 Vital Signs Temperature 0 F L 04/07/17 14:49 Pulse Rate 95 04/07/17 14:49 Respiratory Rate 24 04/07/17 14:49 Blood Pressure 122/80 04/07/17 14:49 O2 Sat by Pulse Oximetry 94 04/07/17 14:49 Temperature 0 F L 04/07/17 14:49 Pulse Rate 82 04/07/17 15:23 Respiratory Rate 24 04/07/17 15:23 Blood Pressure 116/82 04/07/17 15:23 O2 Sat by Pulse Oximetry 96 04/07/17 15:23 Oxygen Delivery Oxygen Delivery Nasal Cannula Shortness of Breath/Dyspnea - Lab Data Result diagrams: 04/07/17 15:22 04/07/17 15:22 Lab Results 04/07/17 04/07/17 04/07/17 Range/Units 15:22 15:22 15:22 WBC (4.3-11.1) K/mcL RBC (4.19-5.50) M/mcL Hgb (12.9-16.9) g/dL Hct (37.5-50.1) % MCV (83.0-100.0) fL MCH (28.0-33.3) pg MCHC (31.6-35.5) g/dL RDW (11.5-14.5) % Plt Count (140-400) K/mcL MPV (9.4-12.4) fL Immature Gran % (0-4) % Seg Neutrophils % % Lymphocytes % % Monocytes % % Eosinophils % % Basophils % % Neutrophils # (1.6-8.9) K/mcL Lymphocytes # (0.6-4.6) K/mcL Monocytes # (0.0-1.3) K/mcL Eosinophils # (0.0-0.6) K/mcL Basophils # (0.0-0.2) K/mcL PT 11.7 (9.4-12.1) Seconds INR 1.1 APTT 29.4 (26.0-36.0) Seconds ABG pH (7.32-7.45) pH Units ABG pCO2 (35-45) mmHg ABG pO2 (85-104) mmHg ABG HCO3 (21-27) mEq/L ABG Total CO2 (20-26) mEq/L ABG O2 Saturation (95-98) % ABG Base Excess (-2.0 to 3.0) mEq/L Liter Flow L/MIN Blood Gas Modality Inspired O2 % Sodium 134 L (136-145) mEq/L Potassium 4.5 (3.5-4.5) mEq/L Chloride 99 (98-109) mEq/L Carbon Dioxide 25 (19-29) mEq/L BUN 14 (8-26) mg/dL Creatinine 1.22 (0.72-1.25) mg/dL Est GFR ( Amer) > 60 (> 60) Est GFR (Non-Af Amer) 60 (> 60) BUN/Creatinine Ratio 11 (6-26) Glucose 293 H (70-99) mg/dL Calculated Osmolality 289 (280-300) Calcium 9.7 (8.6-10.8) mg/dL Total Bilirubin 0.3 (0.2-1.2) mg/dL Direct Bilirubin 0.2 (0.0-0.5) mg/dL Indirect Bilirubin 0.1 (0.0-1.2) mg/dL AST 13 (5-34) Units/L ALT 17 (0-55) Units/L Alkaline Phosphatase 95 (38-126) Units/L Troponin I (0-0.03) ng/mL B-Natriuretic Peptide 199 H (0-100) pg/mL Serum Total Protein 8.1 (6.0-8.3) g/dL Albumin 3.1 L (3.5-5.0) g/dL Globulin 5.0 H (2.4-3.5) g/dL Albumin/Globulin Ratio 0.6 L (1.1-2.2) Lipase 14 (8-78) Units/L 04/07/17 04/07/17 04/07/17 Range/Units 15:22 15:22 16:40 WBC 11.1 (4.3-11.1) K/mcL RBC 5.46 (4.19-5.50) M/mcL Hgb 14.0 (12.9-16.9) g/dL Hct 44.0 (37.5-50.1) % MCV 80.6 L (83.0-100.0) fL MCH 25.6 L (28.0-33.3) pg MCHC 31.8 (31.6-35.5) g/dL RDW 14.6 H (11.5-14.5) % Plt Count 190 (140-400) K/mcL MPV 11.2 (9.4-12.4) fL Immature Gran % 1.5 (0-4) % Seg Neutrophils % 70.4 % Lymphocytes % 18.7 % Monocytes % 6.7 % Eosinophils % 2.1 % Basophils % 0.6 % Neutrophils # 7.8 (1.6-8.9) K/mcL Lymphocytes # 2.1 (0.6-4.6) K/mcL Monocytes # 0.7 (0.0-1.3) K/mcL Eosinophils # 0.2 (0.0-0.6) K/mcL Basophils # 0.1 (0.0-0.2) K/mcL PT (9.4-12.1) Seconds INR APTT (26.0-36.0) Seconds ABG pH 7.42 (7.32-7.45) pH Units ABG pCO2 41 (35-45) mmHg ABG pO2 80 L (85-104) mmHg ABG HCO3 27 (21-27) mEq/L ABG Total CO2 27.9 H (20-26) mEq/L ABG O2 Saturation 96 (95-98) % ABG Base Excess 1.9 (-2.0 to 3.0) mEq/L Liter Flow 2 L/MIN Blood Gas Modality [place] Inspired O2 28 % Sodium (136-145) mEq/L Potassium (3.5-4.5) mEq/L Chloride (98-109) mEq/L Carbon Dioxide (19-29) mEq/L BUN (8-26) mg/dL Creatinine (0.72-1.25) mg/dL Est GFR ( Amer) (> 60) Est GFR (Non-Af Amer) (> 60) BUN/Creatinine Ratio (6-26) Glucose (70-99) mg/dL Calculated Osmolality (280-300) Calcium (8.6-10.8) mg/dL Total Bilirubin (0.2-1.2) mg/dL Direct Bilirubin (0.0-0.5) mg/dL Indirect Bilirubin (0.0-1.2) mg/dL AST (5-34) Units/L ALT (0-55) Units/L Alkaline Phosphatase (38-126) Units/L Troponin I 0.03 (0-0.03) ng/mL B-Natriuretic Peptide (0-100) pg/mL Serum Total Protein (6.0-8.3) g/dL Albumin (3.5-5.0) g/dL Globulin (2.4-3.5) g/dL Albumin/Globulin Ratio (1.1-2.2) Lipase (8-78) Units/L - EKG Data EKG attestation: Yes I reviewed and interpreted this EKG. EKG results narrative: NSR with rate of 1508. no change from 12/10/16
[2017-04-07 15:41] LABS: Activated Partial Thrombo Time 29.4 Seconds (26.0-36.0)
[2017-04-07 15:50] LABS: Alanine Aminotransferase 17 Units/L (0-55); Albumin 3.1 g/dL (3.5-5.0); Albumin/Globulin Ratio 0.6 (1.1-2.2); Alkaline Phosphatase 95 Units/L (38-126); Aspartate Amino Transferase 13 Units/L (5-34); BUN/Creatinine Ratio 11 (6-26); Bilirubin,Direct 0.2 mg/dL (0.0-0.5); Bilirubin,Indirect 0.1 mg/dL (0.0-1.2); Bilirubin,Total 0.3 mg/dL (0.2-1.2); Blood Urea Nitrogen 14 mg/dL (8-26); Calcium 9.7 mg/dL (8.6-10.8); Carbon Dioxide 25 mEq/L (19-29); Chloride 99 mEq/L (98-109); Glucose 293 mg/dL (70-99); Lipase 14 Units/L (8-78); Osmolality,Calculated 289 (280-300); Potassium 4.5 mEq/L (3.5-4.5); Sodium 134 mEq/L (136-145); Total Protein 8.1 g/dL (6.0-8.3); eGFR For African Americans > 60 (> 60); eGFR For Non-African Americans 60 (> 60)
[2017-04-07] MEDS ORDERED: *HR* Morphine 2 MG/ML SYRINGE IVP ONE (16:28)
[2017-04-07 16:50] LABS: ABG Base Excess 1.9 mEq/L (-2.0 to 3.0); ABG HCO3 27 mEq/L (21-27); ABG Oxygen Saturation 96 % (95-98); ABG PCO2 41 mmHg (35-45); ABG PH 7.42 pH Units (7.32-7.45); ABG PO2 80 mmHg (85-104); ABG TCO2 27.9 mEq/L (20-26)
[2017-04-07 16:51] LABS: Blood Gas Liter Flow 2 L/MIN
[2017-04-07 16:52] LABS: Blood Gas FiO2 28 %
[2017-04-07] MEDS ORDERED: Naloxone 0.4 MG/ML INJ IVP PRN (20:53)
[2017-04-07] MEDS ORDERED: *HR* Dextrose 50 % in Water (Syg) 50 ML SYRINGE IVP PRN ×2 (20:58→20:59)
[2017-04-07] MEDS ORDERED: D5% in Water 1,000 ML IVC PRN ×2 (20:58→20:59)
[2017-04-07] MEDS ORDERED: Dextrose Gel 15 GM PO PRN ×4 (20:58→20:59)
[2017-04-07] MEDS ORDERED: Insulin LISPRO 300 UNITS/3 ML VIAL SQ SCH (21:00)
[2017-04-07] MEDS ORDERED: APIXABAN 5 MG TABLET PO SCH (21:00)
[2017-04-07] MEDS ORDERED: Albuterol 2.5 MG/3 ML NEBULIZER IH PRN (22:15)
[2017-04-07 22:56] LABS: ABG Base Excess -3.1 mEq/L (-2.0 to 3.0); ABG HCO3 22 mEq/L (21-27); ABG Oxygen Saturation 94 % (95-98); ABG PCO2 39 mmHg (35-45); ABG PH 7.36 pH Units (7.32-7.45); ABG PO2 73 mmHg (85-104); ABG TCO2 23.2 mEq/L (20-26); Blood Gas FiO2 32 %
--- NOTE | 2017-04-07 23:26 | Internal Med History&Physical ---
Date of Encounter: 04/07/17 Time of Encounter: 23:19 Assessment and Plan (1) Acute and chronic respiratory failure with hypoxia Current visit: Yes Status: Acute Patient has been experiencing increasing shortness of breath over the past few days despite the use of oxygen and bronchodilators. Chest x-ray is negative for any acute process is no leukocytosis BNP is 199. PH 7.42 PCO2 is 41 PO2 is 80 bicarbonate is 27 O2 is 96%. Attempted to ambulate patient on oxygen with a drop in oxygen saturation. Patient appears to be in some respiratory distress we will obtain ABG We will continue with oxygen titrated to maintain SPO2 greater than 92%on BiPAP as needed and the patient will tolerate-intubate if needed (2) COPD exacerbation Current visit: Yes Status: Acute 1 continue with oxygen titrated maintain SPO2 greater than 90% placed on BiPAP as needed and if tolerated 2 continue bronchodilators 3 continue with steroids Solu-Medrol IV to taper (3) Hypertension Current visit: No Status: Chronic Continue with lisinopril Qualifiers: Hypertension type: essential hypertension Qualified Code(s): I10 - Essential (primary) hypertension (4) CHF (congestive heart failure) Current visit: No Status: Chronic 1 patient has history of severe systolic heart failure. We will continue with Lasix 2 monitor intake and output-daily weights 3 low sodium diet Qualifiers: Congestive heart failure type: systolic Congestive heart failure chronicity : chronic Qualified Code(s): I50.22 - Chronic systolic (congestive) heart failure (5) Diabetes Current visit: No Status: Chronic 1 Accu-Cheks before meals at bedtime with sliding scale insulin Qualifiers: Diabetes mellitus type: type 2 Diabetes mellitus complication status: without complication Diabetes mellitus residential insulin use: with intermediate project manager use Qualified Code(s): E11.9 - Type 2 diabetes mellitus without complications ; Z79.4 - care home (current) use of insulin (6) DVT prophylaxis Current visit: No Status: Acute Internal Medicine - H&P: HPI Admitted From: Emergency Dept Plans for Post Hospital Care: Home History of present illness: Mr. Wright is a 66 year old male past medical history of COPD CHF diabetes hypertension hyperlipidemia AICD pacemaker. Patient has been experiencing increasing shortness of breath over the past few days. He chronically wears 2 L nasal cannula at home as well as he is supposed to wear BiPAP/CPAP however he has not been wearing it because he cannot tolerate it. He continues to smoke and has difficulty ambulating without becoming short of breath. He has had multiple falls and has injuries to his left elbow and right knee due to increased shortness of breath. He was brought to the ER for evaluation. According to ER records he was pursed lipped breathing upon presentation. Lab work did reveal BNP of 199 troponin was 0.03 pH was 7.42 PCO2 is 41 PO2 80 bicarbonate 27 O2 96%. CBC with no leukocytosis chemistry with glucose 293. Chest x-ray with no acute process He was given breathing treatments and steroids. ER staff attempted to ambulate patient with home oxygen 2 L and he desaturated into the 80s. He has been admitted for further workup and evaluation. Presently the patient appears to be in moderate respiratory distress. Nursing staff reports that they have just gotten him up to go to the bathroom. They say he became weak and almost collapsed. Saturations were in the 80s. He has conversational dyspnea pursed lip breathing. His lung sounds are diminished throughout heart sounds are regular S1 and S2 with no rubs, gallops murmurs noted abdomen is obese soft nontender. He has slight pedal edema to lower extremity is bilaterally. He does have a open wound to his left elbow as well as a wound to his right knee. He states he sustained these after falling a few weeks ago. He denies any fevers chills nausea vomiting abdominal pain or diarrhea. I discussed CODE STATUS the patient to like to be a full code. We also discussed the use of BiPAP which he states he does not like where however he would try if he continued to have difficulty breathing. I did discuss this case with Dr. Alejandro Felipe who saw patient at bedside. We did order stat ABGs as well as breathing treatments. Past Med Surg Social Fam HX - Past Medical History Medical history: CHF, COPD, diabetes, hyperlipidemia, hypertension Psychiatric history: depression - Past Surgical History Surgical History: pacemaker/AICD, other - Social History Smoking Status: Former smoker Smokeless Tobacco Status: No Alcohol use: none Drug use: none - Family History Mother Living Status: Hx Family Cancer: Yes (brain tumor) Father Living Status: Hx Family Respiratory Disorders: Yes (COPD) Hx Family Endocrine Disorder: Yes (DM) Internal Medicine - H&P: Meds ALPRAZolam [Xanax 0.25 MG Tablet] 0.25 mg PO BID PRN 05/18/17 [History] Apixaban [Eliquis] 5 mg PO BID 12/10/16 [History] Aspirin [Lo-Dose Aspirin EC] 81 mg PO DAILY 12/10/16 [History] Carvedilol [Coreg] 25 mg PO BID 12/10/16 [History] Furosemide [Lasix] 40 mg PO DAILY PRN 12/10/16 [History] Gabapentin [Neurontin] 300 mg PO QPM 12/10/16 [History] Gabapentin [Neurontin] 600 mg PO HS 12/10/16 [History] Insulin NPH Human Isophane [Novolin N] 30 unit SQ QPM 12/10/16 [History] Insulin NPH Human Isophane [Novolin N] 50 unit SQ QAM 12/10/16 [History] Insulin Regular, Human [Novolin R] 30 unit SQ TID 12/10/16 [History] Lisinopril 2.5 mg PO DAILY 12/10/16 [History] Potassium Chloride [K-Tab ER] 20 meq PO DAILY 12/10/16 [History] Sertraline [Zoloft] 100 mg PO DAILY 12/10/16 [History] Tiotropium Jansen [Spiriva Respimat] 1 puff IH DAILY 12/10/16 [History] Ipratropium/Albuterol Neb [Duoneb] 3 ml IH [id number] PRN #60 inhsol 12/13/16 [Rx] Lovastatin 10 mg PO HS 04/07/17 [History] 3 Allergy/AdvReac Type Severity Reaction Status Date / Time No Known Drug Allergies Allergy See Verified 12/10/16 13:33 Comments ROS unobtainable: other All Systems PM: Did not reveal due to patient's respiratory state - Constitutional Vitals: Temp Pulse Resp BP Pulse Ox 98.3 F 104 17 137/78 96 04/07/17 20:12 04/07/17 20:12 04/07/17 20:12 04/07/17 20:12 04/07/17 20:12 General appearance: Present: mild distress, A&O X 3 - Head Head exam: Present: atraumatic, normocephalic - Eye Eye exam: Present: PERRL, conjuntiva pink, sclera anicteric Pupils: Present: PERRL - Neck Neck exam general surgery: Present: supple, trachea midline. Absent: lymphadenopathy - Respiratory Respiratory exam: Present: decreased breath sounds. Absent: accessory muscle use, rales, rhonchi, wheezes - Cardiovascular Cardiovascular exam: Present: RRR, +S1, +S2. Absent: diastolic murmur, gallop, rubs, systolic murmur - GI/Abdominal GI/Abdominal exam: Present: normal bowel sounds, soft, no peritoneal signs. Absent: distended, tenderness - Extremities Exam Extremities exam: Present: pedal edema, warm, radial pulses palpable and symmetrical. Absent: calf tenderness, cyanotic - Neurological Exam Neurological exam: Present: CN II-XII intact, oriented X3, no focal deficits. Absent: pronater drift, facial droop, speech deficit - Skin Skin exam: Present: dry, intact Internal Med - H&P Results - Labs CBC & Chem 7: 04/07/17 15:22 04/07/17 15:22 Labs: Cardiac Enzymes 04/07/17 Range/Units 22:01 Troponin I 0.03 (0-0.03) ng/mL - ABG Interpretation ABG results: 04/07/17 22:46 ABG pH 7.36 ABG pCO2 39 ABG pO2 73 L ABG HCO3 22 ABG Total CO2 23.2 ABG O2 Saturation 94 L ABG Base Excess -3.1 L - Diagnostic Studies Other Images Additional comments: Chest X-Ray 04/07/17 14:57 IMPRESSION: No acute cardiopulmonary disease. Mild cardiomegaly without overt failure. D/ / Marco Odonnell MD / Marco Odonnell MD Interpreting Provider: Marco Odonnell MD
[2017-04-07] MEDS ORDERED: Insulin DETEMIR 100 UNIT/ML X5UNITS SQ SCH (23:45)
--- NOTE | 2017-04-08 00:20 | Event Note ---
Date of Encounter: 04/08/17 Time of Encounter: 00:18 Notified per nursing staff the patient's pupils are unequal. Noted that right pupil 3 mm left to both are reactive has conjugate gaze and nystagmus. No facial droop and slurred speech is alert and appropriate grasps are equal equal strength and all 4 extremities he complains of numbness in his hands bilaterally which she states are chronic. Cranial nerves II through XII intact. Patient denies any recent fall or head trauma Ordered stat CT of head
[2017-04-08] MEDS: Ipratropium/Albuterol Neb 3 ML IH SCH ×6 (04:25→23:20)
[2017-04-08 04:40] LABS: Basophils % 0.2 %; Hematocrit 43.8 % (37.5-50.1); Hemoglobin 14.4 g/dL (12.9-16.9); Immature Granulocytes % 1.4 % (0-4); Immature Platelets 8.2 % (1.1-6.1); Lymphocytes % 7.7 %; Mean Corpuscular HGB Conc 32.9 g/dL (31.6-35.5); Mean Corpuscular Hemoglobin 26.7 pg (28.0-33.3); Mean Corpuscular Volume 81.1 fL (83.0-100.0); Mean Platelet Volume 11.6 fL (9.4-12.4); Monocytes # 0.4 K/mcL (0.0-1.3); Neutrophils # 10.9 K/mcL (1.6-8.9); Platelet Count 177 K/mcL (140-400); Red Cell Distribution Width 14.6 % (11.5-14.5); Segmented Neutrophils % 87.7 %
[2017-04-08] MEDS: Acetaminophen 325 MG TABLET PO PRN ×3 (05:59→20:44)
[2017-04-08 06:35] LABS: BUN/Creatinine Ratio 17 (6-26); Blood Urea Nitrogen 24 mg/dL (8-26); Calcium 9.4 mg/dL (8.6-10.8); Carbon Dioxide 22 mEq/L (19-29); Chloride 97 mEq/L (98-109); Glucose 454 mg/dL (70-99); Osmolality,Calculated 298 (280-300); Potassium 4.9 mEq/L (3.5-4.5); Sodium 132 mEq/L (136-145); eGFR For African Americans > 60 (> 60); eGFR For Non-African Americans 51 (> 60)
[2017-04-08] MEDS ORDERED: Insulin LISPRO 300 UNITS/3 ML VIAL SQ SCH (07:30)
[2017-04-08] MEDS: Tiotropium 18 MCG inhalation IH SCH (07:54)
[2017-04-08] MEDS: Aspirin Enteric Coated 81 MG Tablet PO SCH (08:47)
[2017-04-08] MEDS: Insulin NPH 100 UNIT/ML (x5UNIT) SQ SCH (08:48)
[2017-04-08] MEDS: Insulin LISPRO 300 UNITS/3 ML VIAL SQ SCH ×4 (08:48→20:45)
[2017-04-08] MEDS ORDERED: Furosemide 40 MG TABLET PO SCH (09:00)
[2017-04-08] MEDS: Silvasorb 44.4 ML TUBE TP SCH (13:35)
--- NOTE | 2017-04-08 15:41 | Internal Med Progress Note ---
Date of Encounter: 04/08/17 Time of Encounter: 15:38 - Assessment and plan (1) Acute and chronic respiratory failure with hypoxia Current Visit: Yes Status: Acute Assessment and plan: multi factorial ..due to CHF exacerbation as well COPD exacerbation and hypoventilation syndrome Cont IV Lasix Cont Duoneb.. started tapering iV steroids Also try to wean him off the O2 to his baseline as he tolerates (2) COPD exacerbation Current Visit: Yes Status: Acute Assessment and plan: improving on Duoneb , O2 and Steroids (3) Combined systolic and diastolic heart failure, acute Current Visit: Yes Status: Acute Assessment and plan: Reviewed his 2 D Echo from 11/2016 svery diffucult study due to morbid obesity..however they documented as normal systolic function But he did have systolic dysfunction before..He dent shave diastolic heart failure Started him on Lasix 40 IV BID had -2800 negative balance y/d Strict I & O Cont Coreg, ACEI, ASA (4) Pulmonary embolism Current Visit: No Status: Chronic Assessment and plan: chronic PE cont home med Eliquis Qualifiers: Pulmonary embolism type: other Chronicity: unspecified Acute cor pulmonale presence: without acute cor pulmonale Qualified Code(s): I26.99 - Other pulmonary embolism without acute cor pulmonale (5) Uncontrolled type 2 diabetes mellitus with insulin therapy Current Visit: No Status: Acute Assessment and plan: Cont ISS + Levemir (6) Morbid obesity with BMI of 45.0-49.9, adult Current Visit: No Status: Acute Assessment and plan: counseled to loose weight - Subjective Interval history: Mr. Wright is a 66 year old male past medical history of COPD CHF diabetes hypertension hyperlipidemia AICD pacemaker. Patient has been experiencing increasing shortness of breath over the past few days. He chronically wears 2 L nasal cannula at home as well as he is supposed to wear BiPAP/CPAP however he has not been wearing it because he cannot tolerate it. He continues to smoke and has difficulty ambulating without becoming short of breath. He has had multiple falls and has injuries to his left elbow and right knee due to increased shortness of breath. He was brought to the ER for evaluation. According to ER records he was pursed lipped breathing upon presentation. Lab work did reveal BNP of 199 troponin was 0.03 pH was 7.42 PCO2 is 41 PO2 80 bicarbonate 27 O2 96%. CBC with no leukocytosis chemistry with glucose 293. Chest x-ray with no acute process He was given breathing treatments and steroids. ER staff attempted to ambulate patient with home oxygen 2 L and he desaturated into the 80s. He has been admitted for further workup and evaluation. Pt stated he is feeling little better today, however still has moderate SOB and DENT.. Swelling in the legs also little better. No CP.. No Cough. - Constitutional Vitals: Temp Pulse Resp BP Pulse Ox 97.4 F L 95 17 146/67 95 04/08/17 15:17 04/08/17 15:17 04/08/17 15:17 04/08/17 15:17 04/08/17 15:17 General appearance: Present: mild distress, A&O X 3, answers questions appropriately - Head Head exam: Present: atraumatic, normal inspection - Respiratory Respiratory exam: Present: decreased breath sounds, rales (mild), respiratory distress (mild), wheezes. Absent: rhonchi - Cardiovascular Cardiovascular exam: Present: RRR, +S1, +S2. Absent: systolic murmur - Extremities Exam Extremities exam: Present: pedal edema (1+). Absent: calf tenderness, tenderness - Neurological Exam Neurological exam: Present: alert, oriented X3 - Psychiatric Psychiatric exam: Present: normal affect, normal mood Internal Medicine: Result - Labs CBC & Chem 7: 04/08/17 03:41 04/08/17 03:41 Labs: Short CBC 04/08/17 Range/Units 03:41 WBC 12.4 H (4.3-11.1) K/mcL Hgb 14.4 (12.9-16.9) g/dL Hct 43.8 (37.5-50.1) % Plt Count 177 (140-400) K/mcL Neutrophils # 10.9 H (1.6-8.9) K/mcL BMP 04/08/17 03:41 Sodium 132 L Potassium 4.9 H Chloride 97 L Carbon Dioxide 22 BUN 24 D Creatinine 1.39 H Glucose 454 H Calcium 9.4 Cardiac Enzymes 04/08/17 Range/Units 03:41 Troponin I 0.03 (0-0.03) ng/mL - ABG Interpretation ABG results: ABG ABG pH 7.36 pH Units (7.32-7.45) 04/07/17 22:46 ABG pCO2 39 mmHg (35-45) 04/07/17 22:46 ABG pO2 73 mmHg (85-104) L 04/07/17 22:46 ABG O2 Saturation 94 % (95-98) L 04/07/17 22:46 PT/INR, D-dimer PT 11.7 Seconds (9.4-12.1) 04/07/17 15:22 - Impressions Impressions Head CT 04/08/17 00:12 IMPRESSION: No acute intracranial abnormality. D/ / Penny Dawkins Cha, MD / Penny Dawkins Cha, MD Interpreting Provider: Penny Dwakins Cha, MD Consult Discharge Plan - Plan Referrals: Myles Hart MD [Primary Care Provider] -
[2017-04-08] MEDS: Furosemide 40 MG/4 ML VIAL IVP SCH (16:24)
[2017-04-08] MEDS: Gabapentin 300 MG CAPSULE PO SCH (16:25)
[2017-04-08] MEDS: MethylPREDNISolone 40 MG/ML VIAL IVP SCH (20:45)
[2017-04-08] MEDS: ALPRAZolam 0.25 MG TABLET PO PRN (20:45)
[2017-04-08] MEDS: Nystatin POWDER 30 GM BOTTLE TP SCH (20:46)
[2017-04-08] MEDS ORDERED: methylPREDNISolone 125 MG/2 ML VIAL IVP SCH (22:14)
[2017-04-09] MEDS: Insulin NPH 100 UNIT/ML (x5UNIT) SQ SCH ×3 (04:06→17:51)
[2017-04-09] MEDS: Acetaminophen 325 MG TABLET PO PRN ×2 (04:11→21:38)
[2017-04-09] MEDS: Ipratropium/Albuterol Neb 3 ML IH SCH ×5 (05:58→21:07)
[2017-04-09 06:54] LABS: Basophils % 0.3 %; Hematocrit 45.3 % (37.5-50.1); Hemoglobin 14.4 g/dL (12.9-16.9); Immature Granulocytes % 1.4 % (0-4); Lymphocytes # 1.2 K/mcL (0.6-4.6); Lymphocytes % 9.8 %; Mean Corpuscular HGB Conc 31.8 g/dL (31.6-35.5); Mean Corpuscular Hemoglobin 25.5 pg (28.0-33.3); Mean Corpuscular Volume 80.2 fL (83.0-100.0); Mean Platelet Volume 11.5 fL (9.4-12.4); Monocytes # 0.4 K/mcL (0.0-1.3); Monocytes % 3.2 %; Neutrophils # 10.2 K/mcL (1.6-8.9); Platelet Count 202 K/mcL (140-400); Red Blood Count 5.65 M/mcL (4.19-5.50); Red Cell Distribution Width 14.5 % (11.5-14.5); Segmented Neutrophils % 85.3 %
[2017-04-09 06:57] LABS: BUN/Creatinine Ratio 24 (6-26); Blood Urea Nitrogen 31 mg/dL (8-26); Calcium 9.7 mg/dL (8.6-10.8); Carbon Dioxide 22 mEq/L (19-29); Chloride 93 mEq/L (98-109); Glucose 469 mg/dL (70-99); Osmolality,Calculated 293 (280-300); Potassium 4.8 mEq/L (3.5-4.5); Sodium 128 mEq/L (136-145); eGFR For African Americans > 60 (> 60); eGFR For Non-African Americans 56 (> 60)
[2017-04-09] MEDS: Furosemide 40 MG/4 ML VIAL IVP SCH (08:01)
[2017-04-09] MEDS: Aspirin Enteric Coated 81 MG Tablet PO SCH (08:02)
[2017-04-09] MEDS: Insulin LISPRO 300 UNITS/3 ML VIAL SQ SCH ×4 (08:02→22:51)
[2017-04-09] MEDS: Nystatin POWDER 30 GM BOTTLE TP SCH ×2 (08:03→22:50)
[2017-04-09] MEDS: Silvasorb 44.4 ML TUBE TP SCH (08:03)
[2017-04-09] MEDS: MethylPREDNISolone 40 MG/ML VIAL IVP SCH (08:03)
[2017-04-09] MEDS: Tiotropium 18 MCG inhalation IH SCH ×2 (08:19→19:56)
--- NOTE | 2017-04-09 15:44 | Internal Med Progress Note ---
Date of Encounter: 04/09/17 Time of Encounter: 15:42 - Assessment and plan (1) Acute and chronic respiratory failure with hypoxia Current Visit: Yes Status: Acute Assessment and plan: multi factorial ..due to CHF exacerbation as well COPD exacerbation and hypoventilation syndrome Improving almost back to baseline Does use 2 lit O2 at home.. currently on 2.5 lit here Cont Duoneb Switched to PO steroids and started tapering them down Also try to wean him off the O2 to his baseline as he tolerates (2) COPD exacerbation Current Visit: Yes Status: Acute Assessment and plan: improving on Duoneb , O2 and Steroids (3) Combined systolic and diastolic heart failure, acute Current Visit: Yes Status: Acute Assessment and plan: Reviewed his 2 D Echo from 11/2016 sever difficult study due to morbid obesity..however they documented as normal systolic function But he did have systolic dysfunction before..He santana shave diastolic heart failure had -10lit negative fluid balance in last 3 days changed to PO Lasix today Strict I & O Cont Coreg, ACEI, ASA (4) Pulmonary embolism Current Visit: No Status: Chronic Assessment and plan: chronic PE cont home med Eliquis Qualifiers: Pulmonary embolism type: other Chronicity: unspecified Acute cor pulmonale presence: without acute cor pulmonale Qualified Code(s): I26.99 - Other pulmonary embolism without acute cor pulmonale (5) Uncontrolled type 2 diabetes mellitus with insulin therapy Current Visit: No Status: Acute Assessment and plan: BS fairly controlled due to high dose IV steroids now started tapering steroids Cont ISS + Levemir (6) Morbid obesity with BMI of 45.0-49.9, adult Current Visit: No Status: Acute Assessment and plan: counseled to loose weight - Subjective Interval history: Mr. Wright is a 66 year old male past medical history of COPD CHF diabetes hypertension hyperlipidemia AICD pacemaker. Patient has been experiencing increasing shortness of breath over the past few days. He chronically wears 2 L nasal cannula at home as well as he is supposed to wear BiPAP/CPAP however he has not been wearing it because he cannot tolerate it. He continues to smoke and has difficulty ambulating without becoming short of breath. He has had multiple falls and has injuries to his left elbow and right knee due to increased shortness of breath. He was brought to the ER for evaluation. According to ER records he was pursed lipped breathing upon presentation. Lab work did reveal BNP of 199 troponin was 0.03 pH was 7.42 PCO2 is 41 PO2 80 bicarbonate 27 O2 96%. CBC with no leukocytosis chemistry with glucose 293. Chest x-ray with no acute process He was given breathing treatments and steroids. ER staff attempted to ambulate patient with home oxygen 2 L and he desaturated into the 80s. He has been admitted for further workup and evaluation. Pt stated he is feeling little better today, however still has moderate SANTANA, but his SOB is seems to be at baseline now.. No CP.. No Cough. No events over night - Constitutional Vitals: Temp Pulse Resp BP Pulse Ox 97.8 F 65 18 130/81 95 04/09/17 15:05 04/09/17 15:05 04/09/17 15:05 04/09/17 15:05 04/09/17 15:05 General appearance: Present: A&O X 3, answers questions appropriately - Head Head exam: Present: atraumatic, normal inspection - Respiratory Respiratory exam: Present: decreased breath sounds, wheezes. Absent: rales, respiratory distress, rhonchi - Cardiovascular Cardiovascular exam: Present: RRR, +S1, +S2. Absent: systolic murmur - GI/Abdominal GI/Abdominal exam: Present: distended, soft. Absent: rebound, rigid, tenderness - Extremities Exam Extremities exam: Absent: calf tenderness, pedal edema, tenderness - Neurological Exam Neurological exam: Present: alert, oriented X3 - Psychiatric Psychiatric exam: Present: normal affect, normal mood Internal Medicine: Result - Labs CBC & Chem 7: 04/09/17 06:07 04/09/17 06:07 Labs: Short CBC 04/09/17 Range/Units 06:07 WBC 12.0 H (4.3-11.1) K/mcL Hgb 14.4 (12.9-16.9) g/dL Hct 45.3 (37.5-50.1) % Plt Count 202 (140-400) K/mcL Neutrophils # 10.2 H (1.6-8.9) K/mcL BMP 04/09/17 06:07 Sodium 128 L Potassium 4.8 H Chloride 93 L Carbon Dioxide 22 BUN 31 H Creatinine 1.30 H Glucose 469 H Calcium 9.7 - ABG Interpretation ABG results: ABG ABG pH 7.36 pH Units (7.32-7.45) 04/07/17 22:46 ABG pCO2 39 mmHg (35-45) 04/07/17 22:46 ABG pO2 73 mmHg (85-104) L 04/07/17 22:46 ABG O2 Saturation 94 % (95-98) L 04/07/17 22:46 PT/INR, D-dimer PT 11.7 Seconds (9.4-12.1) 04/07/17 15:22 Consult Discharge Plan - Plan Referrals: Myles Hart MD [Primary Care Provider] -
[2017-04-09] MEDS: Gabapentin 300 MG CAPSULE PO SCH (16:53)
[2017-04-09] MEDS: Fluticasone Propionate Nasal 50 MCG/SPRAY BOTTLE NS SCH (19:52)
[2017-04-09] MEDS: ALPRAZolam 0.25 MG TABLET PO PRN (21:39)
[2017-04-10] MEDS: Ipratropium/Albuterol Neb 3 ML IH SCH ×6 (00:24→20:36)
[2017-04-10] MEDS ORDERED: Insulin NPH 100 UNIT/ML (x5UNIT) SQ SCH (08:36)
[2017-04-10] MEDS ORDERED: 0.9 % Sodium Chloride 1,000 ML IVC SCH (08:45)
[2017-04-10] MEDS: Furosemide 40 MG TABLET PO SCH (08:49)
[2017-04-10] MEDS: Insulin LISPRO 300 UNITS/3 ML VIAL SQ SCH ×4 (08:49→21:52)
[2017-04-10] MEDS: Aspirin Enteric Coated 81 MG Tablet PO SCH (08:49)
[2017-04-10] MEDS: Acetaminophen 325 MG TABLET PO PRN (08:53)
[2017-04-10] MEDS: Fluticasone Propionate Nasal 50 MCG/SPRAY BOTTLE NS SCH ×2 (08:53→21:51)
[2017-04-10] MEDS: Silvasorb 44.4 ML TUBE TP SCH (08:54)
[2017-04-10] MEDS ORDERED: MethylPREDNISolone 40 MG/ML VIAL IVP SCH (09:00)
[2017-04-10 09:04] LABS: BUN/Creatinine Ratio 30 (6-26); Blood Urea Nitrogen 37 mg/dL (8-26); Calcium 9.6 mg/dL (8.6-10.8); Carbon Dioxide 23 mEq/L (19-29); Chloride 94 mEq/L (98-109); Glucose 351 mg/dL (70-99); Magnesium 2.1 mg/dL (1.6-2.6); Osmolality,Calculated 289 (280-300); Potassium 4.4 mEq/L (3.5-4.5); Sodium 128 mEq/L (136-145); eGFR For African Americans > 60 (> 60); eGFR For Non-African Americans 59 (> 60)
[2017-04-10] MEDS: *HR* HYDROcodone/Acet 5/325 mg TABLET PO PRN ×2 (12:41→21:51)
[2017-04-10] MEDS: Insulin NPH 100 UNIT/ML (x5UNIT) SQ SCH (12:42)
[2017-04-10] MEDS: Nystatin POWDER 30 GM BOTTLE TP SCH ×2 (12:42→21:52)
--- NOTE | 2017-04-10 15:37 | Internal Med Progress Note ---
Date of Encounter: 04/10/17 Time of Encounter: 09:00 - Assessment and plan (1) CHF (congestive heart failure) Current Visit: No Status: Chronic Assessment and plan: Appears euvolemic now. Continue home medication Lasix, beta romy, and LOURDES inhibitor Qualifiers: Congestive heart failure type: systolic Congestive heart failure chronicity : chronic Qualified Code(s): I50.22 - Chronic systolic (congestive) heart failure (2) Diabetes Current Visit: No Status: Chronic Assessment and plan: Uncontrolled diabetes, probably due to steroid use. - Increase insulin dose to get better glucose control. - Taper down steroid as wheezing improved Qualifiers: Diabetes mellitus type: type 2 Diabetes mellitus complication status: without complication Diabetes mellitus termite inspector insulin use: with mcfp use Qualified Code(s): E11.9 - Type 2 diabetes mellitus without complications ; Z79.4 - alf (current) use of insulin (3) DVT prophylaxis Current Visit: No Status: Acute Assessment and plan: Heparin subcutaneously (4) Acute exacerbation of chronic obstructive airways disease Current Visit: Yes Status: Acute Assessment and plan: Will continue steroid and bronchodilator. Clinically improved. Taper down steroid use. (5) Acute and chronic respiratory failure with hypoxia Current Visit: Yes Status: Acute Assessment and plan: Continue oxygen supportive treatment and BiPAP as needed. - Time Spent With Patient 25 - 35 minutes - Subjective Interval history: Patient is a 66-year-old male admitted for COPD exacerbation. Past medical history is significant for obesity, COPD, hypertension, diabetes, CHF Patient was seen and examined. Shortness of breath has improved, at about his baseline now. However, her glucose is high to 500, probably due to steroid use. Will adjust insulin dose to get better glucose control. - Constitutional Vitals: Temp Pulse Resp BP Pulse Ox 97.4 F L 84 16 127/82 96 04/10/17 11:33 04/10/17 11:33 04/10/17 11:33 04/10/17 11:33 04/10/17 11:33 General appearance: Present: A&O X 3, morbidly obese, answers questions appropriately - Head Head exam: Present: atraumatic, normocephalic - Eye Eye exam: Present: PERRL, conjuntiva pink, sclera anicteric Pupils: Present: PERRL - Neck Neck exam general surgery: Present: supple, trachea midline. Absent: lymphadenopathy - Respiratory Respiratory exam: Present: CTAB. Absent: accessory muscle use, rales, rhonchi, wheezes - Cardiovascular Cardiovascular exam: Present: RRR, +S1, +S2. Absent: diastolic murmur, gallop, rubs, systolic murmur - GI/Abdominal GI/Abdominal exam: Present: normal bowel sounds, soft, no peritoneal signs. Absent: distended, tenderness - Extremities Exam Extremities exam: Present: warm, radial pulses palpable and symmetrical. Absent : calf tenderness, cyanotic, pedal edema - Neurological Exam Neurological exam: Present: CN II-XII intact, oriented X3, no focal deficits. Absent: pronater drift, facial droop, speech deficit - Skin Skin exam: Present: dry, intact Internal Medicine: Result - Labs CBC & Chem 7: 04/09/17 06:07 04/10/17 07:39 Labs: BMP 04/10/17 07:39 Sodium 128 L Potassium 4.4 Chloride 94 L Carbon Dioxide 23 BUN 37 H Creatinine 1.23 Glucose 351 H Calcium 9.6 - ABG Interpretation ABG results: ABG ABG pH 7.36 pH Units (7.32-7.45) 04/07/17 22:46 ABG pCO2 39 mmHg (35-45) 04/07/17 22:46 ABG pO2 73 mmHg (85-104) L 04/07/17 22:46 ABG O2 Saturation 94 % (95-98) L 04/07/17 22:46 PT/INR, D-dimer PT 11.7 Seconds (9.4-12.1) 04/07/17 15:22 Consult Discharge Plan - Plan Referrals: Myles Hart MD [Primary Care Provider] -
[2017-04-10] MEDS: Gabapentin 300 MG CAPSULE PO SCH (17:52)
[2017-04-10] MEDS: *HR* Heparin 5,000 UNIT/ML VIAL SQ SCH (17:52)
[2017-04-11] MEDS: Ipratropium/Albuterol Neb 3 ML IH SCH ×7 (00:34→22:46)
[2017-04-11 04:31] LABS: BUN/Creatinine Ratio 32 (6-26); Blood Urea Nitrogen 35 mg/dL (8-26); Calcium 9.6 mg/dL (8.6-10.8); Carbon Dioxide 25 mEq/L (19-29); Chloride 96 mEq/L (98-109); Glucose 257 mg/dL (70-99); Osmolality,Calculated 289 (280-300); Potassium 4.1 mEq/L (3.5-4.5); Sodium 131 mEq/L (136-145); eGFR For African Americans > 60 (> 60); eGFR For Non-African Americans > 60 (> 60)
[2017-04-11] MEDS: *HR* Heparin 5,000 UNIT/ML VIAL SQ SCH ×2 (05:30→18:08)
[2017-04-11] MEDS: Acetaminophen 325 MG TABLET PO PRN (05:33)
[2017-04-11] MEDS: Tiotropium 18 MCG inhalation IH SCH (07:24)
[2017-04-11] MEDS: Insulin LISPRO 300 UNITS/3 ML VIAL SQ SCH ×4 (09:44→21:07)
[2017-04-11] MEDS: Aspirin Enteric Coated 81 MG Tablet PO SCH (09:45)
[2017-04-11] MEDS: predniSONE 20 MG TABLET PO SCH (09:45)
[2017-04-11] MEDS: Fluticasone Propionate Nasal 50 MCG/SPRAY BOTTLE NS SCH ×2 (09:46→21:08)
[2017-04-11] MEDS: Furosemide 40 MG TABLET PO SCH (09:46)
[2017-04-11] MEDS: Silvasorb 44.4 ML TUBE TP SCH (09:46)
[2017-04-11] MEDS: Nystatin POWDER 30 GM BOTTLE TP SCH ×2 (09:47→21:08)
[2017-04-11] MEDS: Insulin NPH 100 UNIT/ML (x5UNIT) SQ SCH (09:54)
--- NOTE | 2017-04-11 17:03 | Internal Med Progress Note ---
Date of Encounter: 04/11/17 Time of Encounter: 10:00 - Assessment and plan (1) CHF (congestive heart failure) Current Visit: No Status: Chronic Assessment and plan: Appears euvolemic now. Continue home medication Lasix, beta romy, and LOURDES inhibitor Qualifiers: Congestive heart failure type: systolic Congestive heart failure chronicity : chronic Qualified Code(s): I50.22 - Chronic systolic (congestive) heart failure (2) Diabetes Current Visit: No Status: Chronic Assessment and plan: Uncontrolled diabetes, probably due to steroid use. - Increase insulin dose to get better glucose control. - Taper down steroid as wheezing has improved Qualifiers: Diabetes mellitus type: type 2 Diabetes mellitus complication status: without complication Diabetes mellitus candy puller insulin use: with assisted use Qualified Code(s): E11.9 - Type 2 diabetes mellitus without complications ; Z79.4 - medical claims assistant (current) use of insulin (3) DVT prophylaxis Current Visit: No Status: Acute Assessment and plan: Heparin subcutaneously (4) Acute exacerbation of chronic obstructive airways disease Current Visit: Yes Status: Acute Assessment and plan: Will continue steroid and bronchodilator. Clinically improved. Taper down steroid use. (5) Acute and chronic respiratory failure with hypoxia Current Visit: Yes Status: Acute Assessment and plan: Continue oxygen supportive treatment and BiPAP as needed. - Time Spent With Patient 25 - 35 minutes - Subjective Interval history: Patient is a 66-year-old male admitted for COPD exacerbation. Past medical history is significant for obesity, COPD, hypertension, diabetes, CHF Patient was seen and examined. Shortness of breath has improved, at about his baseline now. His glucose is still high but better controlled at 270s, probably due to steroid use. Will further adjust insulin and steroid dose to get better glucose control. - Constitutional Vitals: Temp Pulse Resp BP Pulse Ox 97.5 F L 78 15 120/74 96 04/11/17 16:32 04/11/17 16:32 04/11/17 16:32 04/11/17 16:32 04/11/17 16:32 General appearance: Present: A&O X 3, morbidly obese, answers questions appropriately - Head Head exam: Present: atraumatic, normocephalic - Eye Eye exam: Present: PERRL, conjuntiva pink, sclera anicteric Pupils: Present: PERRL - Neck Neck exam general surgery: Present: supple, trachea midline. Absent: lymphadenopathy - Respiratory Respiratory exam: Present: CTAB. Absent: accessory muscle use, rales, rhonchi, wheezes - Cardiovascular Cardiovascular exam: Present: RRR, +S1, +S2. Absent: diastolic murmur, gallop, rubs, systolic murmur - GI/Abdominal GI/Abdominal exam: Present: normal bowel sounds, soft, no peritoneal signs. Absent: distended, tenderness - Extremities Exam Extremities exam: Present: warm, radial pulses palpable and symmetrical. Absent : calf tenderness, cyanotic, pedal edema - Neurological Exam Neurological exam: Present: CN II-XII intact, oriented X3, no focal deficits. Absent: pronater drift, facial droop, speech deficit - Skin Skin exam: Present: dry, intact Internal Medicine: Result - Labs CBC & Chem 7: 04/09/17 06:07 04/11/17 03:30 Labs: BMP 04/11/17 03:30 Sodium 131 L Potassium 4.1 Chloride 96 L Carbon Dioxide 25 BUN 35 H Creatinine 1.09 Glucose 257 H Calcium 9.6 - ABG Interpretation ABG results: ABG ABG pH 7.36 pH Units (7.32-7.45) 04/07/17 22:46 ABG pCO2 39 mmHg (35-45) 04/07/17 22:46 ABG pO2 73 mmHg (85-104) L 04/07/17 22:46 ABG O2 Saturation 94 % (95-98) L 04/07/17 22:46 PT/INR, D-dimer PT 11.7 Seconds (9.4-12.1) 04/07/17 15:22 Consult Discharge Plan - Plan Referrals: Myles Hart MD [Primary Care Provider] -
[2017-04-11] MEDS ORDERED: Insulin NPH 100 UNIT/ML (x5UNIT) SQ SCH (18:00)
[2017-04-11] MEDS: Gabapentin 300 MG CAPSULE PO SCH (18:07)
[2017-04-11] MEDS: *HR* HYDROcodone/Acet 5/325 mg TABLET PO PRN (21:13)
[2017-04-11] MEDS: ALPRAZolam 0.25 MG TABLET PO PRN (21:56)
[2017-04-12] MEDS: Ipratropium/Albuterol Neb 3 ML IH SCH ×4 (04:22→16:15)
[2017-04-12] MEDS: *HR* Heparin 5,000 UNIT/ML VIAL SQ SCH (05:18)
[2017-04-12] MEDS: Acetaminophen 325 MG TABLET PO PRN (05:18)
[2017-04-12 05:24] LABS: BUN/Creatinine Ratio 32 (6-26); Blood Urea Nitrogen 35 mg/dL (8-26); Calcium 9.3 mg/dL (8.6-10.8); Carbon Dioxide 25 mEq/L (19-29); Chloride 98 mEq/L (98-109); Glucose 203 mg/dL (70-99); Osmolality,Calculated 288 (280-300); Sodium 132 mEq/L (136-145); eGFR For African Americans > 60 (> 60); eGFR For Non-African Americans > 60 (> 60)
[2017-04-12] MEDS: Tiotropium 18 MCG inhalation IH SCH (07:41)
[2017-04-12] MEDS: Insulin NPH 100 UNIT/ML (x5UNIT) SQ SCH (09:34)
[2017-04-12] MEDS: Furosemide 40 MG TABLET PO SCH (09:34)
[2017-04-12] MEDS: Fluticasone Propionate Nasal 50 MCG/SPRAY BOTTLE NS SCH (09:34)
[2017-04-12] MEDS: predniSONE 20 MG TABLET PO SCH (09:34)
[2017-04-12] MEDS: Aspirin Enteric Coated 81 MG Tablet PO SCH (09:34)
[2017-04-12] MEDS: Insulin LISPRO 300 UNITS/3 ML VIAL SQ SCH ×2 (09:35→12:32)
[2017-04-12] MEDS: Silvasorb 44.4 ML TUBE TP SCH (09:36)
[2017-04-12] MEDS: Nystatin POWDER 30 GM BOTTLE TP SCH (09:37)
--- NOTE | 2017-04-12 12:22 | Discharge Summary ---
Date of Encounter: 04/12/17 Time of Encounter: 10:00 - Discharge Diagnosis (1) CHF (congestive heart failure) Priority: Secondary Status: Chronic Qualifiers: Congestive heart failure type: systolic Congestive heart failure chronicity : chronic Qualified Code(s): I50.22 - Chronic systolic (congestive) heart failure (2) Diabetes Priority: Secondary Status: Chronic Qualifiers: Diabetes mellitus type: type 2 Diabetes mellitus complication status: without complication Diabetes mellitus long term care social worker insulin use: with [facility] use Qualified Code(s): E11.9 - Type 2 diabetes mellitus without complications ; Z79.4 - intermodal dispatcher (current) use of insulin (3) DVT prophylaxis Priority: Secondary Status: Acute (4) Acute exacerbation of chronic obstructive airways disease Priority: Primary Status: Acute (5) Acute and chronic respiratory failure with hypoxia Priority: Primary Status: Acute - Discharge Medications Home Medications: ALPRAZolam [Xanax 0.25 MG Tablet] 0.25 mg PO BID PRN 12/10/16 [History] Apixaban [Eliquis] 5 mg PO BID 12/10/16 [History] Aspirin [Lo-Dose Aspirin EC] 81 mg PO DAILY 12/10/16 [History] Carvedilol [Coreg] 25 mg PO BID 12/10/16 [History] Furosemide [Lasix] 40 mg PO DAILY PRN 12/10/16 [History] Gabapentin [Neurontin] 300 mg PO QPM 12/10/16 [History] Gabapentin [Neurontin] 600 mg PO HS 12/10/16 [History] Insulin NPH Human Isophane [Novolin N] 30 unit SQ QPM 12/10/16 [History] Insulin NPH Human Isophane [Novolin N] 50 unit SQ QAM 12/10/16 [History] Insulin Regular, Human [Novolin R] 30 unit SQ TID 12/10/16 [History] Lisinopril 2.5 mg PO DAILY 12/10/16 [History] Potassium Chloride [K-Tab ER] 20 meq PO DAILY 12/10/16 [History] Sertraline [Zoloft] 100 mg PO DAILY 12/10/16 [History] Tiotropium [place] [Spiriva Respimat] 1 puff IH DAILY 12/10/16 [History] Ipratropium/Albuterol Neb [Duoneb] 3 ml IH [id number] PRN #60 inhsol 12/13/16 [Rx] Lovastatin 10 mg PO HS 04/07/17 [History] Allergies/Adverse Reactions: 3 Allergy/AdvReac Type Severity Reaction Status Date / Time No Known Drug Allergies Allergy See Verified 12/10/16 13:33 Comments - Notes to Outpatient Provider Patient was educated to check his blood sugar level IV times a day and adjusted insulin if glucose is high. Patient said he knows how to monitor blood sugar and adjusted insulin dose. Date of admission: 04/07/17 23:23 Primary care physician: Myles Hart MD Consults: 04/08/17 15:35 Consult to Physical Therapy [CONS] Routine Comment: Evaluate, develop and implement POC Reason for Consult: physical deconditioning OT [Consult to Occupational Therapy] [CONS] Routine Comment: Evaluate, develop and implement POC Reason for Consult: physical deconditioning Discharging clinician: Derek Feliz Anticipated date of discharge: 04/12/17 - Patient Status Disposition: Home, Self-Care Condition: Good Overall status at discharge: patient is back to baseline - Discharge Instructions Follow Up With: Myles Hart MD [Primary Care Provider] - - Diet and Activity Activity: increase activity as tolerated Diet: diabetic diet, low fat, low cholesterol, low salt diet Interval History: HPI: Mr. Wright is a 66 year old male past medical history of COPD CHF diabetes hypertension hyperlipidemia AICD pacemaker. Patient has been experiencing increasing shortness of breath over the past few days. He chronically wears 2 L nasal cannula at home as well as he is supposed to wear BiPAP/CPAP however he has not been wearing it because he cannot tolerate it. He continues to smoke and has difficulty ambulating without becoming short of breath. He has had multiple falls and has injuries to his left elbow and right knee due to increased shortness of breath. He was brought to the ER for evaluation. According to ER records he was pursed lipped breathing upon presentation. Lab work did reveal BNP of 199 troponin was 0.03 pH was 7.42 PCO2 is 41 PO2 80 bicarbonate 27 O2 96%. CBC with no leukocytosis chemistry with glucose 293. Chest x-ray with no acute process He was given breathing treatments and steroids. ER staff attempted to ambulate patient with home oxygen 2 L and he desaturated into the 80s. He has been admitted for further workup and evaluation. Presently the patient appears to be in moderate respiratory distress. Nursing staff reports that they have just gotten him up to go to the bathroom. They say he became weak and almost collapsed. Saturations were in the 80s. He has conversational dyspnea pursed lip breathing. His lung sounds are diminished throughout heart sounds are regular S1 and S2 with no rubs, gallops murmurs noted abdomen is obese soft nontender. He has slight pedal edema to lower extremity is bilaterally. He does have a open wound to his left elbow as well as a wound to his right knee. He states he sustained these after falling a few weeks ago. He denies any fevers chills nausea vomiting abdominal pain or diarrhea. I discussed CODE STATUS the patient to like to be a full code. We also discussed the use of BiPAP which he states he does not like where however he would try if he continued to have difficulty breathing. I did discuss this case with Dr. Alejandro Felipe who saw patient at bedside. We did order stat ABGs as well as breathing treatments. Hospital course: Mr. Wright is a 66 year old male admitted for COPD exacerbation. He was treated with antibiotic, steroid, and bronchodilator. After treatment, his shortness of breath has improved, reached his baseline. On exam and no more wheezing. In the use of 2-3 L oxygen nasal cannula his oxygen saturation can reach 96%. Patient developed hyperglycemia due to steroid use. His glucose level get down to 203 and we taper down the steroids and adjust the insulin dose. Patient is stable at his baseline now. Patient has home oxygen already. He will be discharged to home today. I saw and examined the patient today. He is awake alert oriented 3. He is not in respiratory distress. Vital signs stable. Patient will discharge home with continue home oxygen and taper down steroid. - Time Spent with Patient Total time spent providing and/or coordinating discharge services: 40 min Greater than 30 minutes - Constitutional Vitals: Temp Pulse Resp BP Pulse Ox 97.5 F L 79 16 113/78 96 04/12/17 08:10 04/12/17 08:10 04/12/17 11:19 04/12/17 08:10 04/12/17 11:19 General appearance: Present: A&O X 3, morbidly obese, answers questions appropriately - Head Head exam: Present: atraumatic, normocephalic - Eye Eye exam: Present: PERRL, conjuntiva pink, sclera anicteric Pupils: Present: PERRL - Neck Neck exam general surgery: Present: supple, trachea midline. Absent: lymphadenopathy - Respiratory Respiratory exam: Present: CTAB. Absent: accessory muscle use, rales, rhonchi, wheezes - Cardiovascular Cardiovascular exam: Present: RRR, +S1, +S2. Absent: diastolic murmur, gallop, rubs, systolic murmur - GI/Abdominal GI/Abdominal exam: Present: normal bowel sounds, soft, no peritoneal signs. Absent: distended, tenderness - Extremities Exam Extremities exam: Present: warm, radial pulses palpable and symmetrical. Absent : calf tenderness, cyanotic, pedal edema - Neurological Exam Neurological exam: Present: CN II-XII intact, oriented X3, no focal deficits. Absent: pronater drift, facial droop, speech deficit - Skin Skin exam: Present: dry, intact
--- NOTE | 2017-04-12 13:10 | Event Note ---
Date of Encounter: 04/12/17 Time of Encounter: 11:00 Update to discharge summary: Pt was recommended to Rehab or home PT, home health. Pt refused all the service and insist to go home w/o HH.
--- NOTE | 2017-04-12 13:38 | Physician Discharge Referral ---
ExtendedCare Referral Info Transfer To: Rehab Provider in Charge after Transfer: Other - Diagnosis (1) CHF (congestive heart failure) Status: Chronic (2) Diabetes Status: Chronic (3) DVT prophylaxis Status: Acute (4) Acute exacerbation of chronic obstructive airways disease Status: Acute (5) Acute and chronic respiratory failure with hypoxia Status: Acute - Transfer Medications Prescriptions: predniSONE [PredniSONE] See Taper PO DAILY #10 tab Home Medications: ALPRAZolam [Xanax 0.25 MG Tablet] 0.25 mg PO BID PRN 12/10/16 [History] Apixaban [Eliquis] 5 mg PO BID 12/10/16 [History] Aspirin [Lo-Dose Aspirin EC] 81 mg PO DAILY 12/10/16 [History] Carvedilol [Coreg] 25 mg PO BID 12/10/16 [History] Furosemide [Lasix] 40 mg PO DAILY PRN 12/10/16 [History] Gabapentin [Neurontin] 300 mg PO QPM 12/10/16 [History] Gabapentin [Neurontin] 600 mg PO HS 12/10/16 [History] Insulin NPH Human [place]oph[place] [Novolin N] 30 unit SQ QPM 12/10/16 [History] Insulin NPH Human Isophane [Novolin N] 50 unit SQ QAM 12/10/16 [History] Insulin Regular, Human [Novolin R] 30 unit SQ TID 12/10/16 [History] Lisinopril 2.5 mg PO DAILY 12/10/16 [History] Potassium Chloride [K-Tab ER] 20 meq PO DAILY 12/10/16 [History] Sertraline [Zoloft] 100 mg PO DAILY 12/10/16 [History] Tiotropium [place] [Spiriva Respimat] 1 puff IH DAILY 12/10/16 [History] Ipratropium/Albuterol Neb [Duoneb] 3 ml IH [id number] PRN #60 inhsol 12/13/16 [Rx] Lovastatin 10 mg PO HS 04/07/17 [History] predniSONE [PredniSONE] See Taper PO DAILY #10 tab 04/12/17 [Rx] Allergies/Adverse Reactions: 3 Allergy/AdvReac Type Severity Reaction Status Date / Time No Known Drug Allergies Allergy See Verified 12/10/16 13:33 Comments - Respiratory Orders Oxygen / L per min (2-3) Smoking Cessation: Smoking cessation has been advised. For more information, call the [place] Tobacco Quit Line at 1-865-ZWSM-NOW. - Advance Directives Code Status: Full Code - Rehabiliation Orders Rehab Orders: Evaluation for Physical Therapy, Evaluation for Occupational Therapy - Diet Orders No Concentrated Sweets (DM diet), Cardiac CERTIFICATION: I certify that the transfer of the above named patient to an Extended Care Facility is necessary for the continuing treatment of the diagnosis listed. The above information is true and accurate reflection of patient's current condition. Confidential - Redisclosure prohibited without a patient's written consent.
[2017-04-12 15:28] VITALS: BP 119/73
--- NOTE | 2017-04-12 17:29 | Electrocardiograph Report ---
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
== END 2017-04-12 18:30 | disposition home or self-care (01) | DRG 190 ==
LOC: 3BNU 14:47 → EMEROO 14:47 → 3BNU 20:21 → SUATTDRO 23:23
PROVIDERS: ADMIT Registered Nurse; ATTEND Internal Medicine

== ENCOUNTER 2017-08-09 13:03 | Inpatient (IN) ==
[2017-08-09] MEDS ORDERED: methylPREDNISolone 125 MG/2 ML VIAL ONE (13:31)
[2017-08-09] MEDS ORDERED: Ipratropium/Albuterol Neb 3 ML ONE (13:35)
[2017-08-09] MEDS ORDERED: Ipratropium/Albuterol Neb 3 ML IH ONE (13:37)
--- NOTE | 2017-08-09 13:40 | Emergency Department Note ---
Disposition Clinical Impression: Hypoxia, Acute exacerbation of chronic obstructive airways disease, Shortness of breath Pneumonia Qualifiers: Pneumonia type: due to unspecified organism Laterality: right Lung location: unspecified part of lung Qualified Code(s): J18.9 - Pneumonia, unspecified organism Disposition: Admitted As Inpatient Condition: Fair Time of Disposition: 15:28 General Adult HPI - General Chief complaint: ED Shortness of Breath/Dyspnea Stated complaint: SUZAN Time Seen by Provider: 08/09/17 13:14 Source: patient, EMS Limitations: no limitations Nursing Notes Reviewed: Yes Vital Signs Reviewed: Yes - History of Present Illness HPI Narrative: Patient is a 66-year-old male that presents to the emergency department for shortness of breath and chest pain. Patient states that he has had worsening of shortness of breath over the past 4 days. He is also had intermittent chest pain during this time. He states that he feels like he is having difficulty breathing. Patient was brought in via EMS and reported that he had been laying in his own feces and urine. Was also stated that the home had feces and close throughout the home. Pain Scale: 0 - Related Data Home Medications Medication Instructions Recorded Confirmed Aspirin [Lo-Dose Aspirin EC] 81 mg PO DAILY 12/10/16 06/18/17 Carvedilol [Coreg] 25 mg PO BID 12/10/16 06/18/17 Gabapentin [Neurontin] 300 mg PO BID 12/10/16 06/18/17 Insulin NPH Human Isophane 30 unit SQ QPM 12/10/16 06/18/17 [Novolin N] Insulin NPH Human Isophane 50 unit SQ QAM 12/10/16 06/18/17 [Novolin N] Insulin Regular, Human [Novolin R] 30 unit SQ TID 12/10/16 06/18/17 Sertraline [Zoloft] 100 mg PO DAILY 12/10/16 06/18/17 Lovastatin 10 mg PO HS 04/07/17 06/18/17 Previous Rx's Medication Instructions Recorded Acetaminophen [Tylenol] 650 mg PO Q6HR PRN tablet 06/20/17 Albuterol Sulfate [Albuterol 2 puff IH Q6HR #1 hfa.aer.ad 06/20/17 Inhaler] GuaiFENesin ER [Mucinex] 1,200 mg PO BID #20 tbbp.12hr 06/20/17 Ipratropium [Atrovent Inhaler] 2 gm IH Q6HR #1 hfa.aer.ad 06/20/17 Mupirocin [Bactroban Oint] 1 appl TP BID #1 tube 06/20/17 Sulfamethoxazole/Trimeth DS 1 each PO BID #20 tablet 06/20/17 [Bactrim DS] Allergies Allergy/AdvReac Type Severity Reaction Status Date / Time No Known Drug Allergies Allergy See Verified 12/10/16 13:33 Comments All systems ED: reviewed and negative except as stated. ENT ED: Reports: other (Throat tightness) Cardiovascular: Reports: chest pain Respiratory: Reports: dyspnea Past Medical History - Past Medical History Medical history: Reports: CHF, COPD, diabetes, hyperlipidemia, hypertension Surgical history: Reports: pacemaker/AICD, other Psychiatric history: Reports: depression - Social History Smoking Status: Former smoker Smokeless Tobacco Status: No Alcohol use: Reports: none Drug use: Reports: none Physical Exam - General Limitations: no limitations General appearance: alert, in distress - Head Head exam: atraumatic, normocephalic - Eye Eye exam: Present: normal appearance, EOMI - Chest Chest inspection: Present: normal inspection, symmetric chest wall rise - Respiratory Respiratory exam: Present: other (Patient had wheezes and rhonchi throughout bilateral lung carson area and) - Cardiovascular Cardiovascular exam: Present: regular rate, normal rhythm, normal heart sounds, +S1, +S2 - Abdominal Exam Abdominal exam: Present: soft, Non-Tender, normal bowel sounds - Neurological Exam Neurological exam: Present: alert, oriented X3 - Psychiatric Psychiatric exam: Present: normal affect, normal mood - Skin Skin exam: Present: warm, dry, other (It appears that the patient has skin breakdown on the left elbow and left thigh.) Course Vital Signs Temperature 98.6 F 08/09/17 13:05 Pulse Rate 77 08/09/17 13:05 Respiratory Rate 40 08/09/17 13:05 Blood Pressure 123/95 08/09/17 13:05 O2 Sat by Pulse Oximetry 89 08/09/17 13:05 Temperature 98.6 F 08/09/17 13:05 Pulse Rate 108 08/09/17 14:17 Respiratory Rate 22 08/09/17 14:17 Blood Pressure 148/75 08/09/17 14:17 O2 Sat by Pulse Oximetry 100 08/09/17 14:17 Oxygen Delivery Oxygen Delivery Bipap Medical Decision Making - MDM Narrative Medical decision making narrative: Due to the patient presenting with chest pain or shortness of breath he will get a cardiac workup including a lactate, blood cultures, chest x-ray and EKG. The patient was also given a dose of Solu-Medrol and will receive a breathing treatment here in the emergency department. CTA of the chest showed infiltrate but could possibly be infectious. Patient also had leukocytes and bacteria in his urine. We started the patient on Levaquin which will cover for possible pneumonia and urinary tract infection. Patient's troponin was negative. EKG showed a sinus tachycardia. Patient had hyponatremia which this is chronic for him. Patient did require a period of BiPAP he is currently on nasal cannula. CT of the neck showed improvement from previous. The patient does have an elevated white count. The patient will need to be admitted to the hospital for further evaluation and management. I called and spoke with the hospitalist and they have accepted the patient their service. Patient to be admitted for further evaluation and management. - Medical Records Medical records reviewed: Yes I reviewed the patient's medical records. - Lab Data Lab results reviewed: Yes I reviewed the patient's lab results. Result diagrams: 08/09/17 13:35 08/09/17 13:35 Lab Results 08/09/17 08/09/17 08/09/17 Range/Units 13:35 13:35 13:35 WBC 12.7 H (4.3-11.1) K/mcL RBC 5.09 (4.19-5.50) M/mcL Hgb 13.3 (12.9-16.9) g/dL Hct 41.8 (37.5-50.1) % MCV 82.1 L (83.0-100.0) fL MCH 26.1 L (28.0-33.3) pg MCHC 31.8 (31.6-35.5) g/dL RDW 16.3 H (11.5-14.5) % Plt Count 204 (140-400) K/mcL MPV 10.4 (9.4-12.4) fL Immature Gran % 1.6 (0-4) % Seg Neutrophils % 79.7 % Lymphocytes % 10.3 % Monocytes % 7.6 % Eosinophils % 0.2 % Basophils % 0.6 % Neutrophils # 10.1 H (1.6-8.9) K/mcL Lymphocytes # 1.3 (0.6-4.6) K/mcL Monocytes # 1.0 (0.0-1.3) K/mcL Eosinophils # 0.0 (0.0-0.6) K/mcL Basophils # 0.1 (0.0-0.2) K/mcL PT (9.4-12.1) Seconds INR APTT (26.0-36.0) Seconds Sodium 124 L (136-145) mEq/L Potassium 4.7 (3.5-5.1) mEq/L Chloride 91 L (98-107) mEq/L Carbon Dioxide 25 (23-29) mEq/L BUN 15 (8-23) mg/dL Creatinine 0.85 (0.70-1.30) mg/dL Est GFR ( Amer) > 60 (> 60) Est GFR (Non-Af Amer) > 60 (> 60) BUN/Creatinine Ratio 18 (6-26) Glucose 223 H (70-105) mg/dL Calculated Osmolality 266 L (280-300) Lactic Acid 1.2 (0.5-2.2) mmol/L Calcium 8.7 (8.6-10.3) mg/dL Total Bilirubin 0.8 (0.3-1.0) mg/dL Direct Bilirubin 0.2 (0.0-0.2) mg/dL Indirect Bilirubin 0.6 (0.0-1.2) mg/dL AST 21 (13-39) Units/L ALT 12 (7-52) Units/L Alkaline Phosphatase 62 (34-104) Units/L Troponin I (< 0.04) ng/mL B-Natriuretic Peptide (Less than 100) pg/mL Serum Total Protein 8.0 (6.4-8.9) g/dL Albumin 3.5 (3.5-5.7) g/dL Globulin 4.5 H (2.4-3.5) g/dL Albumin/Globulin Ratio 0.8 L (1.1-2.2) Urine Color (Yellow) Urine Clarity (Clear) Urine pH (5.0-8.0) pH Units Ur Specific Cascade (1.010-1.025) Urine Protein (Neg-Trace) mg/dL Urine Glucose (UA) (Normal) mg/dL Urine Ketones (Negative) mg/dL Urine Blood (Negative) Urine Nitrite (Negative) Urine Bilirubin (Negative) Urine Urobilinogen (Normal) mg/dL Ur Leukocyte Esterase (Negative) Urine Microscopic RBC (0-3) per hpf Urine Microscopic WBC (0-3) per hpf Ur Squamous Epith Cells (None-Few) per lpf Urine Bacteria (None-Few) per hpf Hyaline Casts (None-Few) per lpf Ur Culture Indicated? (NO) 08/09/17 08/09/17 08/09/17 Range/Units 13:35 13:35 13:35 WBC (4.3-11.1) K/mcL RBC (4.19-5.50) M/mcL Hgb (12.9-16.9) g/dL Hct (37.5-50.1) % MCV (83.0-100.0) fL MCH (28.0-33.3) pg MCHC (31.6-35.5) g/dL RDW (11.5-14.5) % Plt Count (140-400) K/mcL MPV (9.4-12.4) fL Immature Gran % (0-4) % Seg Neutrophils % % Lymphocytes % % Monocytes % % Eosinophils % % Basophils % % Neutrophils # (1.6-8.9) K/mcL Lymphocytes # (0.6-4.6) K/mcL Monocytes # (0.0-1.3) K/mcL Eosinophils # (0.0-0.6) K/mcL Basophils # (0.0-0.2) K/mcL PT 12.9 H (9.4-12.1) Seconds INR 1.2 APTT 29.2 (26.0-36.0) Seconds Sodium (136-145) mEq/L Potassium (3.5-5.1) mEq/L Chloride (98-107) mEq/L Carbon Dioxide (23-29) mEq/L BUN (8-23) mg/dL Creatinine (0.70-1.30) mg/dL Est GFR ( Amer) (> 60) Est GFR (Non-Af Amer) (> 60) BUN/Creatinine Ratio (6-26) Glucose (70-105) mg/dL Calculated Osmolality (280-300) Lactic Acid (0.5-2.2) mmol/L Calcium (8.6-10.3) mg/dL Total Bilirubin (0.3-1.0) mg/dL Direct Bilirubin (0.0-0.2) mg/dL Indirect Bilirubin (0.0-1.2) mg/dL AST (13-39) Units/L ALT (7-52) Units/L Alkaline Phosphatase (34-104) Units/L Troponin I < 0.03 (< 0.04) ng/mL B-Natriuretic Peptide 312 H (Less than 100) pg/mL Serum Total Protein (6.4-8.9) g/dL Albumin (3.5-5.7) g/dL Globulin (2.4-3.5) g/dL Albumin/Globulin Ratio (1.1-2.2) Urine Color (Yellow) Urine Clarity (Clear) Urine pH (5.0-8.0) pH Units Ur Specific Cascade (1.010-1.025) Urine Protein (Neg-Trace) mg/dL Urine Glucose (UA) (Normal) mg/dL Urine Ketones (Negative) mg/dL Urine Blood (Negative) Urine Nitrite (Negative) Urine Bilirubin (Negative) Urine Urobilinogen (Normal) mg/dL Ur Leukocyte Esterase (Negative) Urine Microscopic RBC (0-3) per hpf Urine Microscopic WBC (0-3) per hpf Ur Squamous Epith Cells (None-Few) per lpf Urine Bacteria (None-Few) per hpf Hyaline Casts (None-Few) per lpf Ur Culture Indicated? (NO) 08/09/17 Range/Units 13:35 WBC (4.3-11.1) K/mcL RBC (4.19-5.50) M/mcL Hgb (12.9-16.9) g/dL Hct (37.5-50.1) % MCV (83.0-100.0) fL MCH (28.0-33.3) pg MCHC (31.6-35.5) g/dL RDW (11.5-14.5) % Plt Count (140-400) K/mcL MPV (9.4-12.4) fL Immature Gran % (0-4) % Seg Neutrophils % % Lymphocytes % % Monocytes % % Eosinophils % % Basophils % % Neutrophils # (1.6-8.9) K/mcL Lymphocytes # (0.6-4.6) K/mcL Monocytes # (0.0-1.3) K/mcL Eosinophils # (0.0-0.6) K/mcL Basophils # (0.0-0.2) K/mcL PT (9.4-12.1) Seconds INR APTT (26.0-36.0) Seconds Sodium (136-145) mEq/L Potassium (3.5-5.1) mEq/L Chloride (98-107) mEq/L Carbon Dioxide (23-29) mEq/L BUN (8-23) mg/dL Creatinine (0.70-1.30) mg/dL Est GFR ( Amer) (> 60) Est GFR (Non-Af Amer) (> 60) BUN/Creatinine Ratio (6-26) Glucose (70-105) mg/dL Calculated Osmolality (280-300) Lactic Acid (0.5-2.2) mmol/L Calcium (8.6-10.3) mg/dL Total Bilirubin (0.3-1.0) mg/dL Direct Bilirubin (0.0-0.2) mg/dL Indirect Bilirubin (0.0-1.2) mg/dL AST (13-39) Units/L ALT (7-52) Units/L Alkaline Phosphatase (34-104) Units/L Troponin I (< 0.04) ng/mL B-Natriuretic Peptide (Less than 100) pg/mL Serum Total Protein (6.4-8.9) g/dL Albumin (3.5-5.7) g/dL Globulin (2.4-3.5) g/dL Albumin/Globulin Ratio (1.1-2.2) Urine Color Yellow (Yellow) Urine Clarity Turbid A (Clear) Urine pH 6.0 (5.0-8.0) pH Units Ur Specific Cascade 1.014 (1.010-1.025) Urine Protein 100 H (Neg-Trace) mg/dL Urine Glucose (UA) 500 H (Normal) mg/dL Urine Ketones Trace H (Negative) mg/dL Urine Blood Moderate H (Negative) Urine Nitrite Negative (Negative) Urine Bilirubin Negative (Negative) Urine Urobilinogen Normal (Normal) mg/dL Ur Leukocyte Esterase Large H (Negative) Urine Microscopic RBC 5-15 H (0-3) per hpf Urine Microscopic WBC TNTC H (0-3) per hpf Ur Squamous Epith Cells Moderate H (None-Few) per lpf Urine Bacteria Moderate H (None-Few) per hpf Hyaline Casts None Seen (None-Few) per lpf Ur Culture Indicated? YES A (NO) - Radiology Data Radiology results reviewed: Yes I reviewed the patient's radiology results. Chest X-Ray 08/09/17 13:37 IMPRESSION: Cardiomegaly and mild pulmonary edema, perhaps slightly increased from prior exam. D/ / Alejandro Moss MD / Alejandro Moss MD Interpreting Provider: Alejandro Moss MD Chest CTA 08/09/17 13:38 IMPRESSION: 1. Limited study secondary to suboptimal opacification of the pulmonary arteries with contrast. There is no evidence of a central pulmonary embolism, however, segmental and subsegmental emboli cannot be excluded. 2. There are 2 nodular infiltrates noted in the inferior aspect of the right upper lobe, the largest of which measures 1.3 x 0.9 cm. While these could be infectious/inflammatory in etiology, malignancy cannot be excluded. Please see the follow-up imaging recommendations below. 3. There is bilateral hilar and mediastinal lymphadenopathy which may be reactive, however, metastatic disease cannot be excluded. 4. Nodular contour of the liver raising the possibility of underlying cirrhosis. D/ / Adryan Preciado MD / Adryan Preciado MD Interpreting Provider: Adryan Preciado MD Soft Tissue Neck CT 08/09/17 13:39 IMPRESSION: Bilateral neck skin thickening and subcutaneous fat stranding/ induration substantially decreased from 06/18/2017. Paranasal sinus air-fluid levels may indicate acute sinusitis in the appropriate clinical setting. There is moderate left mastoid disease. No evidence of acute abnormality involving the pharynx or larynx. D/ / Taqueria Hamilton MD / Taqueria Hamilton MD Interpreting Provider: Taqueria Hamilton MD - EKG Data EKG #1 EKG attestation: Yes I reviewed and interpreted this EKG. EKG results narrative: EKG showed sinus tachycardia at a rate of 150 bpm, WV interval of 203, QRS duration 97, QTC of 376 there is no STEMI noted on this EKG. There is some artifact on this EKG.
[2017-08-09 13:49] LABS: Bilirubin,Urine Negative (Negative); Blood,Urine Moderate (Negative); Clarity,Urine Turbid (Clear); Color,Urine Yellow (Yellow); Glucose,Urine (UA) 500 mg/dL (Normal); Ketones,Urine Trace mg/dL (Negative); Leukocyte Esterase,Urine Large (Negative); Nitrite,Urine Negative (Negative); Protein,Urine 100 mg/dL (Neg-Trace); Specific Gravity,Urine 1.014 (1.010-1.025); Urobilinogen,Urine Normal (Normal)
[2017-08-09 13:51] LABS: Bacteria,Urine Moderate per hpf (None-Few); Hyaline Casts,Urine None Seen per lpf (None-Few); Squamous Epithelial Cell,Urine Moderate per lpf (None-Few); WBC,Urine TNTC per hpf (0-3)
[2017-08-09 13:53] LABS: Basophils # 0.1 K/mcL (0.0-0.2); Basophils % 0.6 %; Eosinophils % 0.2 %; Hematocrit 41.8 % (37.5-50.1); Hemoglobin 13.3 g/dL (12.9-16.9); Immature Granulocytes % 1.6 % (0-4); Lymphocytes # 1.3 K/mcL (0.6-4.6); Lymphocytes % 10.3 %; Mean Corpuscular HGB Conc 31.8 g/dL (31.6-35.5); Mean Corpuscular Hemoglobin 26.1 pg (28.0-33.3); Mean Corpuscular Volume 82.1 fL (83.0-100.0); Mean Platelet Volume 10.4 fL (9.4-12.4); Monocytes % 7.6 %; Neutrophils # 10.1 K/mcL (1.6-8.9); Platelet Count 204 K/mcL (140-400); Red Blood Count 5.09 M/mcL (4.19-5.50); Red Cell Distribution Width 16.3 % (11.5-14.5); Segmented Neutrophils % 79.7 %
[2017-08-09 13:55] LABS: INR 1.2; Prothrombin Time 12.9 Seconds (9.4-12.1)
[2017-08-09 13:58] LABS: Activated Partial Thrombo Time 29.2 Seconds (26.0-36.0)
[2017-08-09 14:00] LABS: Alanine Aminotransferase 12 Units/L (7-52); Albumin 3.5 g/dL (3.5-5.7); Albumin/Globulin Ratio 0.8 (1.1-2.2); Alkaline Phosphatase 62 Units/L (34-104); Aspartate Amino Transferase 21 Units/L (13-39); BUN/Creatinine Ratio 18 (6-26); Bilirubin,Direct 0.2 mg/dL (0.0-0.2); Bilirubin,Indirect 0.6 mg/dL (0.0-1.2); Bilirubin,Total 0.8 mg/dL (0.3-1.0); Blood Urea Nitrogen 15 mg/dL (8-23); Calcium 8.7 mg/dL (8.6-10.3); Carbon Dioxide 25 mEq/L (23-29); Chloride 91 mEq/L (98-107); Globulin 4.5 g/dL (2.4-3.5); Glucose 223 mg/dL (70-105); Osmolality,Calculated 266 (280-300); Potassium 4.7 mEq/L (3.5-5.1); Sodium 124 mEq/L (136-145); eGFR For African Americans > 60 (> 60); eGFR For Non-African Americans > 60 (> 60)
[2017-08-09] MEDS ORDERED: Levofloxacin 750 MG/150 ML 750 MG/150 ML BAG IVPB ONE (15:16)
--- NOTE | 2017-08-09 16:34 | Emergency Department Note ---
START Narrative - START START: I examined this patient and my medical decision-making was reviewed with the Resident Physician. I agree with the documented findings, disposition and treatment plan as described except to the extent set forth below. 66-year-old very obese male presented to the ER for shortness of breath. I been ongoing for at least 4 days. Known COPD. No obesity. Patient cannot care for himself at home. He urinates on himself and defecates on himself. He appeared very unkept. Patient was in severe respirator distress. We did place him on BiPAP for a good hour or so which helped relieve a lot of his hypoxia. Patient did not like the BiPAP machine and took it off. He did maintain well on 3 L nasal cannula. Workup showed possible pulmonary infiltrates on the CTA of the chest. There was no evidence of any PE. Was also questional reactive lymphadenopathy which could be secondary to to metastatic disease. This will also need to be worked up by pulmonary standpoint. We did place him on IV antibiotics and steroids and breathing treatments. Admitted to hospitalist. Critical care time was approximately 15 minutes spent to medical management of patient's hypoxia requiring BiPAP.
[2017-08-09] MEDS ORDERED: Naloxone 0.4 MG/ML INJ IVP PRN (17:54)
[2017-08-09] MEDS ORDERED: Vancomycin 2,000 MG in D5% in Water 250 ML IVPB SCH (18:00)
--- NOTE | 2017-08-09 18:06 | Internal Med History&Physical ---
<Sabas Grimes - Last Filed: 08/09/17 23:28> Date of Encounter: 08/09/17 Time of Encounter: 18:03 Assessment and Plan (1) Sepsis Current visit: Yes Status: Acute Sepsis secondary to UTI, suspected HCAP. He is hemodynamically stable and does not appear to be in septic shock. -EF of 15-20% so I will proceed with gentle IV hydration -blood cultures now -urine cultures now -follow culture results -emperic ATB therapy with vancomycin, levaquin, and zosyn -continuous tele, and spot monitoring -closely monitor hemodynamic status -CBCD, BMP in the am Qualifiers: Sepsis type: sepsis due to unspecified organism Qualified Code(s): A41.9 - Sepsis, unspecified organism (2) Influenza A Current visit: Yes Status: Acute Influenza per respiratory infection panel. Presents with acute respiratory failure with hypoxia, sepsis, HCAP and acute exacerbation of COPD -Continue supportive care -Start Tamiflu per CDC recommendations of hospitalized patients -Continue respiratory support with Bipap (3) HCAP (healthcare-associated pneumonia) Current visit: Yes Status: Acute ASSESSMENT: - SOB due to suspected HCAP and an acute exacerbation of COPD. CTA chest shows RUL nodular infiltrates, negative for PE. Influenza is also in the differential and that is being r/o as well. He has a recent hospitalization in which at that time he had a septic skin infection requiring ATB therapy. Does not appear to be in septic shock. He remains hemodynamically stable. Lactic acid 1.2, tachycardic, febrile on admission, requiring Bipap for respiratory support. - Blood Cx - Antibiotics include Vancomycin, Zosyn, and Levaquin - CBCD, CMP in AM - Tylenol 650 mg PO q 4-6 hr PRN pain or fever - Resume home medications - Heparin 5000 U SQ BID -Respiratory support per NC; titrate to maintain Spo2 >92% -Continuous tele, and Spo2 monitorin (4) UTI (urinary tract infection) Current visit: Yes Status: Acute Acute cyctitis with hemeturia. No recent cultures on file -likely septic d/t UTI or HCAP or both, leukocytosis, fever, tachycardia -Continue levaquin -urine culture sent- continue to follow and narrow ATB Qualifiers: Urinary tract infection type: acute cystitis Hematuria presence: with hematuria Qualified Code(s): N30.01 - Acute cystitis with hematuria (5) Acute and chronic respiratory failure with hypoxia Current visit: Yes Status: Acute Respiratory failure with hypoxia secondary to suspected HCAP And COPD exacerbation Requiring Bipap for respiratory support-wean as tolerated; see further planning above (6) COPD exacerbation Current visit: Yes Status: Acute dyspnea, hypoxia, and wheezing d/t HCAP, and COPD exacerbation Meets sepsis criteria, however is not in septic shock -Aerosols every 6 hours -Respiratory support per BiPAP with goal to wean to nasal cannula -Maintain SPO2 greater than 90% (7) Shortness of breath Current visit: Yes Status: Acute see plan above (8) Uncontrolled type 2 diabetes mellitus with insulin therapy Current visit: Yes Status: Acute H/O of DM II, Start LSSIC with AC/HS checks and a diabetic/cardiac diet (9) Combined systolic and diastolic heart failure, acute Current visit: Yes Status: Acute Per TTE in 2013 EF 15-20%, most recent attempt at a TTE in 12/09 unsuccessful due to poor body habitus -continue Coreg -strict intake and output monitoring (10) Morbid obesity with BMI of 45.0-49.9, adult Current visit: Yes Status: Acute Discussed lifestyle modifications (11) Hypertension Current visit: Yes Status: Chronic Stable, resume BB Qualifiers: Hypertension type: essential hypertension Qualified Code(s): I10 - Essential (primary) hypertension (12) DVT prophylaxis Current visit: Yes Status: Acute Heparin 5000 units SC BID Internal Medicine - H&P: HPI Chief complaint: DYSPNEA Admitted From: Home Plans for Post Hospital Care: Home History of present illness: Mr. Wright is a 66 year old male with a PMH of CHF, COPD, diabetes, hyperlipidemia, and hypertension presents to [facility] today with severe dyspnea for the last four days. Upon arrival to the ED he was found to be hypoxic. He says that he is normally ambulatory with a walker at home but he has not been able to ambulate to perform self-care d/t feeling ill. The EMS state that they found him laying in his own urine and feces. He admits to dyspnea, fevers, chills, fatigue, myalgias and arthralgias and diarrhea. Additionally he was febrile on arrival. He was placed on Bipap in the ED to provide respiratory support. Past Med Surg Social Fam HX - Past Medical History Medical history: CHF, COPD, diabetes, hyperlipidemia, hypertension Psychiatric history: depression - Past Surgical History Surgical History: pacemaker/AICD, other - Social History Smoking Status: Former smoker Smokeless Tobacco Status: No Alcohol use: none Drug use: none - Family History Mother Living Status: Hx Family Cancer: Yes (brain tumor) Father Living Status: Hx Family Respiratory Disorders: Yes (COPD) Hx Family Endocrine Disorder: Yes (DM) Internal Medicine - H&P: Meds Aspirin [Lo-Dose Aspirin EC] 81 mg PO DAILY 12/10/16 [History] Carvedilol [Coreg] 25 mg PO BID 12/10/16 [History] Gabapentin [Neurontin] 300 mg PO BID 12/10/16 [History] Insulin NPH Human Isophane [Novolin N] 30 unit SQ QPM 12/10/16 [History] Insulin NPH Human Isophane [Novolin N] 50 unit SQ QAM 12/10/16 [History] Insulin Regular, Human [Novolin R] 20 - 50 unit SQ TID 12/10/16 [History] Sertraline [Zoloft] 100 mg PO DAILY 12/10/16 [History] Lovastatin 10 mg PO HS 04/07/17 [History] Albuterol Sulfate [Albuterol Inhaler] 2 puff IH Q6HR #1 [email or web address] 06/20/17 [Rx] Ipratropium/Albuterol Neb [Duoneb] 3 ml IH Q6HR 08/09/17 [History] traZODone [TraZODone] 50 mg PO HS 08/09/17 [History] 3 Allergy/AdvReac Type Severity Reaction Status Date / Time No Known Drug Allergies Allergy See Verified 12/10/16 13:33 Comments All Systems PM: A 10-system review of systems was performed and is negative for pertinent findings except as documented above in the HPI. - Constitutional Constitutional: fatigue, lethargy, weakness, no chills, no fever(s), no night sweats - EENT Nose, mouth and throat: no hoarseness, no nasal congestion, no nasal discharge, no sinus pressure, no sore throat - Cardiovascular Cardiovascular ROS IM: dyspnea, dyspnea on exertion, no chest pain, no claudication, no diaphoresis, no edema - Respiratory Respiratory: cough (PRODUCTIVE OF GREEN SPUTUM), dyspnea, dyspnea on exertion, chest congestion, no stridor, no pain on inspiration, no excessive phlegm production, no change in phlegm color, no pain with cough - Gastrointestinal Gastrointestinal: diarrhea, no abdominal pain, no hematemesis, no hematochezia, no melena, no nausea, no vomiting - Genitourinary Genitourinary ROS male: no difficulty urinating, no dysuria, no flank pain - Musculoskeletal Musculoskeletal ROS IM: no numbness, no tingling - Integumentary Integumentary IM: no rash, no unusual bruising - Neurological Neurological ROS: no confusion, no convulsions, no focal weakness, no numbness, no tingling, no tremor(s) - Constitutional Vitals: Temp Pulse Resp BP Pulse Ox 101.1 F H 110 18 132/75 98 08/09/17 16:51 08/09/17 16:51 08/09/17 16:51 08/09/17 16:51 08/09/17 16:51 General appearance: Present: cooperative, mild distress, A&O X 3, morbidly obese , answers questions appropriately - Head Head exam: Present: atraumatic, normocephalic - Eye Eye exam: Present: PERRL, conjuntiva pink, sclera anicteric Pupils: Present: PERRL - Neck Neck exam general surgery: Present: supple, trachea midline. Absent: lymphadenopathy - Respiratory Respiratory exam: Present: CTAB. Absent: accessory muscle use, rales, rhonchi, wheezes - Cardiovascular Cardiovascular exam: Present: +S1, +S2, tachycardia - GI/Abdominal GI/Abdominal exam: Present: normal bowel sounds, soft, no peritoneal signs. Absent: distended, tenderness - Extremities Exam Extremities exam: Present: warm, radial pulses palpable and symmetrical. Absent : calf tenderness, cyanotic, pedal edema - Neurological Exam Neurological exam: Present: alert, oriented X3 - Skin Skin exam: Present: dry, intact Internal Med - H&P Results - Labs CBC & Chem 7: 08/09/17 13:35 08/09/17 13:35 - EKG Data -: EKG Interpreted by Myself EKG shows normal: sinus rhythm Rate: tachycardia - EKG Data Interpretation IM: normal EKG - Impressions Impressions Chest X-Ray 08/09/17 13:37 IMPRESSION: Cardiomegaly and mild pulmonary edema, perhaps slightly increased from prior exam. D/ / Alejandro Moss MD / Alejandro Moss MD Interpreting Provider: Alejandro Moss MD Chest CTA 08/09/17 13:38 IMPRESSION: 1. Limited study secondary to suboptimal opacification of the pulmonary arteries with contrast. There is no evidence of a central pulmonary embolism, however, segmental and subsegmental emboli cannot be excluded. 2. There are two nodular infiltrates noted in the inferior aspect of the right upper lobe, the largest of which measures 1.3 x 0.9 cm. While these could be infectious/inflammatory in etiology, malignancy cannot be excluded. Please see the follow-up imaging recommendations below. 3. There is bilateral hilar and mediastinal lymphadenopathy which may be reactive, however, metastatic disease cannot be excluded. 4. Nodular contour of the liver raising the possibility of underlying cirrhosis. D/ / 08/09/2017 15:49:40 Adryan Preciado MD / kelvin Interpreting Provider: Adryan Preciado MD Soft Tissue Neck CT 08/09/17 13:39 IMPRESSION: Bilateral neck skin thickening and subcutaneous fat stranding/ induration substantially decreased from 06/18/2017. Paranasal sinus air-fluid levels may indicate acute sinusitis in the appropriate clinical setting. There is moderate left mastoid disease. No evidence of acute abnormality involving the pharynx or larynx. D/ / Taqueria Hamilton MD / Taqueria Hamilton MD Interpreting Provider: Taqueria Hamilton MD <Erin Garcia - Last Filed: 08/10/17 04:01> Date of Encounter: 08/09/17 Time of Encounter: 22:35 Internal Medicine - H&P: HPI History of present illness: Mr. Wright is a 66 year old male All Systems PM: A 10-system review of systems was performed and is negative for pertinent findings except as documented above in the HPI. - Constitutional Vitals: Temp Pulse Resp BP Pulse Ox 98 F 91 19 112/65 90 08/09/17 20:00 08/10/17 00:00 08/10/17 00:00 08/10/17 00:00 08/10/17 00:00 Internal Med - H&P Results - Labs CBC & Chem 7: 08/09/17 13:35 08/09/17 13:35 Labs: Cardiac Enzymes 08/09/17 Range/Units 18:11 Troponin I 0.03 (< 0.04) ng/mL - Attending Attestation Patient is a 66y/o male admitted for acute respiratory distress secondary to HCAP/COPD exacerbation, sepsis secondary to HCAP and UTI. Respiratory viral panel positive for influenza. Pt independently seen and examined at bedside. resting in bed and saturating well on nasal cannula continue broad spectrum IV abx, started Tamiflu, IV steroids, bronchodilators, O2 supplementation f/u blood and urine cultures Sliding scale insulin for DM, ADA diet, monitor FS and BG Case was discussed with CAROLYN Grimes, I agree with his documented findings, assessment, and plan except as listed above
[2017-08-09 18:28] LABS: Adenovirus Not Detected (Not Detect); Coronavirus 229E Not Detected (Not Detect); Coronavirus HKU1 Not Detected (Not Detect); Coronavirus NL63 Not Detected (Not Detect); Coronavirus OC43 Not Detected (Not Detect); Human Metapneumovirus Not Detected (Not Detect); Human Rhinovirus/Enterovirus Not Detected (Not Detect)
[2017-08-09 18:29] LABS: Bordetella Pertussis Not Detected (Not Detect); Chlamydophila pneumoniae Not Detected (Not Detect); Influenza A Subtype 2009 H1 Not Detected (Not Detect); Influenza A Untypeable Not Detected (Not Detect); Influenza B Not Detected (Not Detect); Mycoplasma pneumoniae Not Detected (Not Detect); Parainfluenza Virus 1 Not Detected (Not Detect); Parainfluenza Virus 2 Not Detected (Not Detect); Parainfluenza Virus 3 Not Detected (Not Detect); Parainfluenza Virus 4 Not Detected (Not Detect); Respiratory Syncytial Virus Not Detected (Not Detect)
[2017-08-09] MEDS ORDERED: Dextrose Gel 15 GM/37.5 ML TUBE PO PRN ×2 (18:33)
[2017-08-09] MEDS ORDERED: D5% in Water 1,000 ML IVC PRN (18:33)
[2017-08-09] MEDS ORDERED: *HR* Dextrose 50 % in Water (Syg) 50 ML SYRINGE IVP PRN (18:33)
[2017-08-09] MEDS: Acetaminophen 325 MG TABLET PO PRN (20:47)
[2017-08-09] MEDS: traZODone 50 MG TABLET PO SCH (20:47)
[2017-08-09] MEDS: Insulin LISPRO 300 UNITS/3 ML VIAL SQ SCH (20:49)
[2017-08-09] MEDS: *HR* Heparin 5,000 UNIT/ML VIAL SQ SCH (20:54)
[2017-08-09] MEDS: Vancomycin 2,000 MG in D5% in Water 500 ML IVPB SCH (21:03)
[2017-08-09] MEDS: Levalbuterol Neb 1.25 MG/3 ML IH SCH (23:06)
[2017-08-10] MEDS: Piperacillin/Tazobactam 3.375 GM/200 ML BAG IVPB SCH ×3 (00:21→16:23)
[2017-08-10] MEDS: Levalbuterol Neb 1.25 MG/3 ML IH SCH ×4 (03:45→22:58)
[2017-08-10] MEDS: Vancomycin 2,000 MG in D5% in Water 500 ML IVPB SCH (05:27)
[2017-08-10] MEDS: MethylPREDNISolone 40 MG/ML VIAL IVP SCH ×2 (05:28→18:24)
[2017-08-10] MEDS: *HR* Heparin 5,000 UNIT/ML VIAL SQ SCH ×2 (05:28→18:24)
[2017-08-10 06:31] LABS: Basophils % 0.4 %; Hematocrit 39.1 % (37.5-50.1); Hemoglobin 12.6 g/dL (12.9-16.9); Immature Granulocytes % 1.4 % (0-4); Mean Corpuscular HGB Conc 32.2 g/dL (31.6-35.5); Mean Corpuscular Hemoglobin 26.1 pg (28.0-33.3); Mean Corpuscular Volume 81.1 fL (83.0-100.0); Mean Platelet Volume 10.4 fL (9.4-12.4); Monocytes # 0.6 K/mcL (0.0-1.3); Monocytes % 12.6 %; Neutrophils # 3.3 K/mcL (1.6-8.9); Platelet Count 185 K/mcL (140-400); Red Blood Count 4.82 M/mcL (4.19-5.50); Red Cell Distribution Width 15.9 % (11.5-14.5); Segmented Neutrophils % 66.6 %
[2017-08-10 06:35] LABS: BUN/Creatinine Ratio 21 (6-26); Blood Urea Nitrogen 19 mg/dL (8-23); Carbon Dioxide 26 mEq/L (23-29); Chloride 95 mEq/L (98-107); Glucose 244 mg/dL (70-105); Osmolality,Calculated 278 (280-300); Potassium 4.1 mEq/L (3.5-5.1); Sodium 129 mEq/L (136-145); eGFR For African Americans > 60 (> 60); eGFR For Non-African Americans > 60 (> 60)
--- NOTE | 2017-08-10 07:39 | Electrocardiograph Report ---
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1950 Requested By: Fahad Melo Order Number: [id number] Reading MD: Jaky Campos DO Measurements Intervals Mart Rate: 115 P: 76 MO: 203 QRS: -50 QRSD: 97 T: 97 QT: 308 QTc: 376 Interpretive Statements SINUS TACHYCARDIA POSSIBLE LEFT ATRIAL ENLARGEMENT [-0.1mV P WAVE IN V1/V2] LEFT ANTERIOR FASCICULAR BLOCK [QRS AXIS <= -45, QR IN I, RS IN II] POSSIBLE ANTERIOR MYOCARDIAL INFARCTION [30 ms Q WAVE IN V3/V4, OR R < 0.2 mV IN V4], OF INDETERMINATE AGE INFERIOR MYOCARDIAL INFARCTION [40+ ms Q WAVE AND/OR ST/T ABNORMALITY IN II/aVF], POSSIBLY ACUTEACUTE MT APPEARS TO BE SIMILAR TO EKG DONE 06-18-2017 Electronically Signed On 08-10-2017 7:37:21 EST by Jaky Campos DO
[2017-08-10] MEDS ORDERED: Levofloxacin 750 MG/150 ML 750 MG/150 ML BAG IVPB SCH (09:00)
[2017-08-10] MEDS: Aspirin Enteric Coated 81 MG Tablet PO SCH (09:14)
[2017-08-10] MEDS: Insulin LISPRO 300 UNITS/3 ML VIAL SQ SCH ×4 (09:15→20:31)
[2017-08-10] MEDS: Acetaminophen 325 MG TABLET PO PRN ×4 (09:25→22:08)
--- NOTE | 2017-08-10 10:17 | Internal Med Progress Note ---
<Taqueria Brizuela - Last Filed: 08/10/17 13:25> Date of Encounter: 08/10/17 Time of Encounter: 10:18 - Assessment and plan (1) Sepsis Current Visit: Yes Status: Acute Assessment and plan: Sepsis secondary to UTI, possilbe HCAP. He is hemodynamically stable and does not appear to be in septic shock. - EF of 15-20% so I will proceed with gentle IV hydration - blood cultures pending - urine cultures pending - emperic ATB therapy with vancomycin, levaquin, and zosyn day 2 - continuous tele, and spot monitoring - closely monitor hemodynamic status - morning labs Qualifiers: Sepsis type: sepsis due to unspecified organism Qualified Code(s): A41.9 - Sepsis, unspecified organism (2) UTI (urinary tract infection) Current Visit: Yes Status: Acute Assessment and plan: Acute cyctitis with hemeturia. No recent cultures on file -likely septic d/t UTI or HCAP or both, leukocytosis, fever, tachycardia -Continue levaquin -urine culture sent- continue to follow and narrow ATB Qualifiers: Urinary tract infection type: acute cystitis Hematuria presence: with hematuria Qualified Code(s): N30.01 - Acute cystitis with hematuria (3) HCAP (healthcare-associated pneumonia) Current Visit: Yes Status: Acute Assessment and plan: SOB due to suspected HCAP and an acute exacerbation of COPD. CTA chest shows RUL nodular infiltrates, negative for PE. Patient positive for influenza A, treated with tamiflu. He has a recent hospitalization in which at that time he had a septic skin infection requiring ATB therapy. Does not appear to be in septic shock. He remains hemodynamically stable. Lactic acid 1.2, tachycardic, febrile on admission, requiring Bipap for respiratory support. Currently stable - Blood Cx - pending - Antibiotics include Vancomycin, Zosyn, and Levaquin day 2 - Tylenol 650 mg PO q 4-6 hr PRN pain or fever - Resume home medications - Heparin 5000 U SQ BID - Respiratory support per NC; titrate to maintain Spo2 >92% - Continuous tele, and Spo2 monitoring (4) Influenza A Current Visit: Yes Status: Acute Assessment and plan: Influenza per respiratory infection panel. Presents with acute respiratory failure with hypoxia, sepsis, HCAP and acute exacerbation of COPD - Continue supportive care - ct Tamiflu per CDC recommendations of hospitalized patients - Continue respiratory support with Bipap (5) Uncontrolled type 2 diabetes mellitus with insulin therapy Current Visit: Yes Status: Acute Assessment and plan: Per TTE in 2013 EF 15-20%, most recent attempt at a TTE in 12/09 unsuccessful due to poor body habitus -continue Coreg -strict intake and output monitoring (6) Pressure ulcer Current Visit: Yes Status: Acute Assessment and plan: stage 2 pressure ulcer on lateral hips bilaterally and left elbow. Patient arrived with wounds, as documented by nursing staff. patient - Wound care consulted - low air loss mattress ordered Qualifiers: Qualified Code(s): L89.90 - Pressure ulcer of unspecified site, unspecified stage (7) Morbid obesity with BMI of 45.0-49.9, adult Current Visit: Yes Status: Acute Assessment and plan: Discussed lifestyle modifications (8) Acute and chronic respiratory failure with hypoxia Current Visit: Yes Status: Acute Assessment and plan: Respiratory failure with hypoxia secondary to suspected HCAP And COPD exacerbation Requiring Bipap for respiratory support-wean as tolerated; see further planning above (9) COPD exacerbation Current Visit: Yes Status: Acute Assessment and plan: dyspnea, hypoxia, and wheezing d/t HCAP, and COPD exacerbation. met sepsis criteria on admission. currently hemodynamically stable and improving. -Aerosols every 6 hours -Respiratory support per BiPAP with goal to wean to nasal cannula -Maintain SPO2 greater than 90% (10) Hypertension Current Visit: Yes Status: Chronic Assessment and plan: Stable, resume BB Qualifiers: Hypertension type: essential hypertension Qualified Code(s): I10 - Essential (primary) hypertension (11) Combined systolic and diastolic heart failure, acute Current Visit: Yes Status: Acute Assessment and plan: Per TTE in 2013 EF 15-20%, most recent attempt at a TTE in 12/09 unsuccessful due to poor body habitus -continue Coreg -strict intake and output monitoring (12) Shortness of breath Current Visit: Yes Status: Acute Assessment and plan: see above (13) DVT prophylaxis Current Visit: Yes Status: Acute Assessment and plan: Heparin 5000 units SC BID - Subjective Interval history: Mr. Wright is a 66 year old male with a PMH of CHF, COPD, diabetes, hyperlipidemia, and hypertension presented to [facility] today with severe dyspnea for 4 days prior to admission. Patient is lying on side and will not move off ulcer in order to watch tv. breathing symptoms are improving. patient is non- cooperative with staff. denies cp, n/v, pain. - Constitutional Vitals: Temp Pulse Resp BP Pulse Ox 98.4 F 79 14 128/67 95 08/10/17 07:25 08/10/17 07:25 08/10/17 07:25 08/10/17 07:25 08/10/17 07:25 General appearance: Present: cooperative, mild distress, A&O X 3, morbidly obese , answers questions appropriately - Respiratory Respiratory exam: Present: wheezes (expiratory diffuse). Absent: decreased breath sounds, CTAB, rales, respiratory distress - Cardiovascular Cardiovascular exam: Present: RRR, +S1, +S2. Absent: diastolic murmur, gallop, rubs, systolic murmur - Extremities Exam Additional comments: grade 2 ulceration on lateral hip bilaterally. Internal Medicine: Result - Labs CBC & Chem 7: 08/10/17 05:14 08/10/17 05:14 Labs: Short CBC 08/10/17 Range/Units 05:14 WBC 5.0 D (4.3-11.1) K/mcL Hgb 12.6 L (12.9-16.9) g/dL Hct 39.1 (37.5-50.1) % Plt Count 185 (140-400) K/mcL Neutrophils # 3.3 (1.6-8.9) K/mcL BMP 08/10/17 05:14 Sodium 129 L Potassium 4.1 Chloride 95 L Carbon Dioxide 26 BUN 19 Creatinine 0.92 Glucose 244 H Calcium 9.0 Cardiac Enzymes 08/09/17 Range/Units 18:11 Troponin I 0.03 (< 0.04) ng/mL - ABG Interpretation ABG results: PT/INR, D-dimer PT 12.9 Seconds (9.4-12.1) H 08/09/17 13:35 Consult Discharge Plan - Plan Referrals: Myles Hart MD [Primary Care Provider] - <Rei Allen - Last Filed: 08/10/17 18:33> Date of Encounter: 08/10/17 - Assessment and plan (1) Acute and chronic respiratory failure with hypoxia Current Visit: Yes Status: Acute (2) Acute exacerbation of chronic obstructive airways disease Current Visit: Yes Status: Acute (3) Influenza A Current Visit: Yes Status: Acute (4) Pneumonia Current Visit: Yes Status: Suspected Qualifiers: Pneumonia type: due to other aerobic Gram-negative bacteria Laterality: right Lung location: unspecified part of lung Qualified Code(s): J15.6 - Pneumonia due to other Gram-negative bacteria (5) Morbid obesity with BMI of 45.0-49.9, adult Current Visit: Yes Status: Acute (6) Hypertension Current Visit: Yes Status: Chronic Qualifiers: Hypertension type: essential hypertension Qualified Code(s): I10 - Essential (primary) hypertension (7) Diabetes Current Visit: No Status: Chronic Qualifiers: Diabetes mellitus type: type 2 Diabetes mellitus complication status: with hyperglycemia Diabetes mellitus mcfp insulin use: with joint terminal attack controller use Qualified Code(s): E11.65 - Type 2 diabetes mellitus with hyperglycemia; 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; Z79.4 - [facility] (current) use of insulin ; Z79.4 - [facility] (current) use of insulin; 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 (8) Sepsis Current Visit: Yes Status: Acute Qualifiers: Sepsis type: sepsis due to unspecified organism Qualified Code(s): A41.9 - Sepsis, unspecified organism - Constitutional Vitals: Temp Pulse Resp BP Pulse Ox 97.8 F 88 16 106/63 90 08/10/17 14:52 08/10/17 14:52 08/10/17 16:21 08/10/17 14:52 08/10/17 16:21 Internal Medicine: Result - Labs CBC & Chem 7: 08/10/17 05:14 08/10/17 05:14 Labs: Short CBC 08/10/17 Range/Units 05:14 WBC 5.0 D (4.3-11.1) K/mcL Hgb 12.6 L (12.9-16.9) g/dL Hct 39.1 (37.5-50.1) % Plt Count 185 (140-400) K/mcL Neutrophils # 3.3 (1.6-8.9) K/mcL BMP 08/10/17 05:14 Sodium 129 L Potassium 4.1 Chloride 95 L Carbon Dioxide 26 BUN 19 Creatinine 0.92 Glucose 244 H Calcium 9.0 Cardiac Enzymes 08/09/17 Range/Units 18:11 Troponin I 0.03 (< 0.04) ng/mL - ABG Interpretation ABG results: PT/INR, D-dimer PT 12.9 Seconds (9.4-12.1) H 08/09/17 13:35 - Attending Attestation I examined this patient and my medical decision-making was reviewed with the Resident Physician on 08/10/17. I agree with the documented findings, disposition and treatment plan as described except to the extent set forth below. Mr Wright is currently admitted for sepsis related to UTI and influenza. He remains moderate to high risk due to potential for worsening clinical status. Mr Wright will not turn in bed. He wants to watch TV. No fever or chills. Currently on IV abx for presumptive pneumonia. Exam Alert. Comfortable Mucus membranes dry Heart reg No wheeze Abd soft I/P 1. Sepsis - improving 2. PNA 3. Influenza Further diagnoses and plan as above.
[2017-08-10] MEDS: Ondansetron 4 MG/2 ML VIAL IVP PRN (12:31)
[2017-08-10] MEDS: Ipratropium/Albuterol Neb 3 ML IH SCH ×2 (16:21→22:59)
[2017-08-10] MEDS: Silvasorb 44.4 ML TUBE TP SCH (18:01)
[2017-08-10] MEDS: traZODone 50 MG TABLET PO SCH (20:22)
[2017-08-10] MEDS: Vancomycin 1,750 MG in D5% in Water 500 ML IVPB SCH (20:22)
[2017-08-11] MEDS: Piperacillin/Tazobactam 3.375 GM/200 ML BAG IVPB SCH ×2 (00:51→10:24)
[2017-08-11] MEDS: Levalbuterol Neb 1.25 MG/3 ML IH SCH ×2 (04:32→10:18)
[2017-08-11] MEDS: Ipratropium/Albuterol Neb 3 ML IH SCH ×4 (04:36→22:47)
[2017-08-11] MEDS: Acetaminophen 325 MG TABLET PO PRN ×3 (04:39→23:06)
[2017-08-11 05:39] LABS: Basophils % 0.4 %; Hematocrit 40.7 % (37.5-50.1); Hemoglobin 13.2 g/dL (12.9-16.9); Immature Granulocytes % 1.5 % (0-4); Lymphocytes # 0.9 K/mcL (0.6-4.6); Lymphocytes % 17.1 %; Mean Corpuscular HGB Conc 32.4 g/dL (31.6-35.5); Mean Corpuscular Hemoglobin 26.6 pg (28.0-33.3); Mean Corpuscular Volume 82.1 fL (83.0-100.0); Mean Platelet Volume 10.7 fL (9.4-12.4); Monocytes # 0.5 K/mcL (0.0-1.3); Monocytes % 9.5 %; Neutrophils # 3.8 K/mcL (1.6-8.9); Platelet Count 187 K/mcL (140-400); Red Blood Count 4.96 M/mcL (4.19-5.50); Red Cell Distribution Width 15.9 % (11.5-14.5); Segmented Neutrophils % 71.5 %
[2017-08-11 05:52] LABS: BUN/Creatinine Ratio 26 (6-26); Blood Urea Nitrogen 27 mg/dL (8-23); Carbon Dioxide 25 mEq/L (23-29); Chloride 94 mEq/L (98-107); Glucose 346 mg/dL (70-105); Osmolality,Calculated 283 (280-300); Potassium 4.6 mEq/L (3.5-5.1); Sodium 127 mEq/L (136-145); eGFR For African Americans > 60 (> 60); eGFR For Non-African Americans > 60 (> 60)
[2017-08-11] MEDS: MethylPREDNISolone 40 MG/ML VIAL IVP SCH ×2 (06:09→16:56)
[2017-08-11] MEDS: *HR* Heparin 5,000 UNIT/ML VIAL SQ SCH ×2 (06:09→16:56)
[2017-08-11] MEDS: Insulin LISPRO 300 UNITS/3 ML VIAL SQ SCH ×4 (08:05→21:58)
[2017-08-11] MEDS: Aspirin Enteric Coated 81 MG Tablet PO SCH (08:06)
[2017-08-11] MEDS: Vancomycin 1,750 MG in D5% in Water 500 ML IVPB SCH (08:06)
--- NOTE | 2017-08-11 11:19 | Discharge Summary ---
<Taqueria Brizuela - Last Filed: 08/11/17 13:39> Date of Encounter: 08/11/17 Time of Encounter: 11:11 - Discharge Diagnosis (1) Sepsis Priority: Primary Status: Acute Qualifiers: Sepsis type: sepsis due to unspecified organism Qualified Code(s): A41.9 - Sepsis, unspecified organism (2) UTI (urinary tract infection) Priority: Secondary Status: Acute Qualifiers: Urinary tract infection type: acute cystitis Hematuria presence: with hematuria Qualified Code(s): N30.01 - Acute cystitis with hematuria (3) HCAP (healthcare-associated pneumonia) Priority: Secondary Status: Acute (4) Influenza A Priority: Secondary Status: Acute (5) Uncontrolled type 2 diabetes mellitus with insulin therapy Priority: Secondary Status: Acute (6) Pressure ulcer Priority: Secondary Status: Acute Qualifiers: Qualified Code(s): L89.90 - Pressure ulcer of unspecified site, unspecified stage (7) Morbid obesity with BMI of 45.0-49.9, adult Priority: Secondary Status: Acute (8) Acute and chronic respiratory failure with hypoxia Priority: Secondary Status: Acute (9) COPD exacerbation Priority: Secondary Status: Acute (10) Hypertension Priority: Secondary Status: Chronic Qualifiers: Hypertension type: essential hypertension Qualified Code(s): I10 - Essential (primary) hypertension (11) Combined systolic and diastolic heart failure, acute Priority: Secondary Status: Acute (12) Shortness of breath Priority: Secondary Status: Acute (13) DVT prophylaxis Priority: Secondary Status: Acute - Discharge Medications Prescriptions: Levofloxacin [Levaquin] 500 mg PO DAILY 10 Days #10 tablet Oseltamivir [Tamiflu] 75 mg PO BID 7 Days #14 capsule Home Medications: Aspirin [Lo-Dose Aspirin EC] 81 mg PO DAILY 12/10/16 [History] Carvedilol [Coreg] 25 mg PO BID 12/10/16 [History] Gabapentin [Neurontin] 300 mg PO BID 12/10/16 [History] Insulin NPH Human Isophane [Novolin N] 30 unit SQ QPM 12/10/16 [History] Insulin NPH Human Isophane [Novolin N] 50 unit SQ QAM 12/10/16 [History] Insulin Regular, Human [Novolin R] 20 - 50 unit SQ TID 12/10/16 [History] Sertraline [Zoloft] 100 mg PO DAILY 12/10/16 [History] Lovastatin 10 mg PO HS 04/07/17 [History] Albuterol Sulfate [Albuterol Inhaler] 2 puff IH Q6HR #1 hfa.aer.ad 06/20/17 [Rx] Ipratropium/Albuterol Neb [Duoneb] 3 ml IH Q6HR 08/09/17 [History] traZODone [TraZODone] 50 mg PO HS 08/09/17 [History] Levofloxacin [Levaquin] 500 mg PO DAILY 10 Days #10 tablet 08/11/17 [Rx] Oseltamivir [Tamiflu] 75 mg PO BID 7 Days #14 capsule 08/11/17 [Rx] Allergies/Adverse Reactions: 3 Allergy/AdvReac Type Severity Reaction Status Date / Time No Known Drug Allergies Allergy See Verified 12/10/16 13:33 Comments Date of admission: 08/09/17 17:54 Primary care physician: Myles Hart MD Consults: 08/10/17 10:19 Consult to Wound Care [CONS] Routine Reason for Consult: stage 2 ulcer on hips bilaterally and elbow Call Completed: Yes - Patient Status Disposition: Home Health Service Condition: Fair Functional capacity at discharge: independent ambulation Overall status at discharge: patient is back to baseline - Discharge Instructions Follow Up With: Myles Hart MD [Primary Care Provider] - 08/17/17 9:30 am Forms: ED Satisfaction Letter - Diet and Activity Activity: increase activity as tolerated Diet: diabetic diet, low fat, low cholesterol, low salt diet Hospital course: Mr. Wright is a 66 year old male w/ pmh CHF, COPD, diabetes, hyperlipidemia, morbid obesity, and hypertension presented to [facility] on 08/09/17 with severe dyspnea for four days prior to admission. In the ED patient was to be septic secondary to UTI, influenza A and possibly coinfected with HCAP. Patient was started on tamiflu, vancomycin, levaquin, and zosyn. On presentation he was also to have found grade 2 pressure ulcers on his lateral hips bilaterally and on his left elbow. During hospitalization patient was very non-compliant with treatment plan and refused to not lay on pressure ulcers. Wound care was consulted, and he was non-compliant. Patient had a ocasio cath placed and 6.3 L per day was collected on 3 days of hospitalization. By 2nd day of admission patient was afebrile, normal rate, and had no leukocytosis. Patient is discharged with tamiflu and 10 day course of levaquin. Patient to be seen by PCP w/in 10 days. solid waste collection worker consulted to assist patient with home care. Time spent discussing smoking cessation with patient: more than 10 minutes - Time Spent with Patient Total time spent providing and/or coordinating discharge services: - Constitutional Vitals: Temp Pulse Resp BP Pulse Ox 97.8 F 78 20 132/82 99 08/11/17 07:34 08/11/17 07:34 08/11/17 10:16 08/11/17 07:34 08/11/17 10:16 General appearance: Present: cooperative, mild distress, A&O X 3, morbidly obese , answers questions appropriately - Respiratory Respiratory exam: Present: CTAB. Absent: accessory muscle use, rales, rhonchi, wheezes - Cardiovascular Cardiovascular exam: Present: RRR, +S1, +S2. Absent: diastolic murmur, gallop, rubs, systolic murmur - GI/Abdominal GI/Abdominal exam: Present: normal bowel sounds, soft, no peritoneal signs. Absent: distended, tenderness - Psychiatric Psychiatric exam: Present: normal affect, normal mood <Rei Allen - Last Filed: 08/11/17 18:35> Date of Encounter: 08/11/17 - Discharge Diagnosis (1) Acute and chronic respiratory failure with hypoxia Priority: Primary Status: Resolved (2) Acute exacerbation of chronic obstructive airways disease Priority: Primary Status: Resolved (3) Influenza A Status: Acute (4) Pneumonia Priority: Secondary Status: Suspected Qualifiers: Pneumonia type: due to other aerobic Gram-negative bacteria Laterality: right Lung location: unspecified part of lung Qualified Code(s): J15.6 - Pneumonia due to other Gram-negative bacteria (5) Morbid obesity with BMI of 45.0-49.9, adult Status: Acute (6) Hypertension Status: Chronic Qualifiers: Hypertension type: essential hypertension Qualified Code(s): I10 - Essential (primary) hypertension (7) Diabetes Priority: Secondary Status: Chronic Qualifiers: Diabetes mellitus type: type 2 Diabetes mellitus complication status: with hyperglycemia Diabetes mellitus technician terminal and repeater insulin use: with technician terminal and repeater use Qualified Code(s): E11.65 - Type 2 diabetes mellitus with hyperglycemia; Z79.4 - residential (current) use of insulin; Z79.4 - residential (current) use of insulin ; Z79.4 - manager long term care (current) use of insulin; Z79.4 - residential (current) use of insulin (8) Sepsis Status: Resolved Qualifiers: Sepsis type: sepsis due to unspecified organism Qualified Code(s): A41.9 - Sepsis, unspecified organism (9) Combined systolic and diastolic heart failure, acute Status: Acute Comments: Not on LOURDES due to prior renal issue. Date of admission: 08/09/17 17:54 Primary care physician: Myles Hart MD Consults: 08/10/17 10:19 Consult to Wound Care [CONS] Routine Reason for Consult: stage 2 ulcer on hips bilaterally and elbow Call Completed: Yes 08/11/17 12:18 Consult to Physical Therapy [CONS] Routine Comment: Evaluate, develop and implement POC Reason for Consult: Wants ECF at discharge 08/11/17 12:19 Consult to Occupational Therapy [CONS] Routine Comment: Evaluate, develop and implement POC Reason for Consult: For ECF at discharge Hospital course: Mr. Wright is a 66 year old male - Time Spent with Patient Total time spent providing and/or coordinating discharge services: 39min - Constitutional Vitals: Temp Pulse Resp BP Pulse Ox 98.0 F 80 20 128/94 94 08/11/17 15:47 08/11/17 15:47 08/11/17 15:54 08/11/17 15:47 08/11/17 15:54 - Attending Attestation I examined this patient and my medical decision-making was reviewed with the Resident Physician on 08/11/17. I agree with the documented findings, disposition and treatment plan as described except to the extent set forth below. Mr Wright has been admitted for acute influenza and COPD. He is afebrile with stable vitals. He is ready for discharge when arrangements made Exam Alert Comfortable Mucus membranes dry Heart not tachy Rhonchi present Plan D/C when arrangements made PT eval.
[2017-08-11 11:45] LABS: Hemoglobin A1C 7.8 %
[2017-08-11] MEDS: levoFLOXacin 750 MG TABLET PO SCH (12:22)
[2017-08-11] MEDS: Silvasorb 44.4 ML TUBE TP SCH (12:22)
[2017-08-11] MEDS ORDERED: Aminoglycoside Consult 1 EACH MC ONE (13:15)
[2017-08-11] MEDS: traZODone 50 MG TABLET PO SCH (21:55)
[2017-08-12] MEDS: Ipratropium/Albuterol Neb 3 ML IH SCH ×3 (03:52→16:00)
[2017-08-12 04:49] LABS: Basophils % 0.3 %; Hematocrit 41.9 % (37.5-50.1); Hemoglobin 13.6 g/dL (12.9-16.9); Lymphocytes # 1.4 K/mcL (0.6-4.6); Lymphocytes % 24.4 %; Mean Corpuscular HGB Conc 32.5 g/dL (31.6-35.5); Mean Corpuscular Hemoglobin 26.4 pg (28.0-33.3); Mean Corpuscular Volume 81.4 fL (83.0-100.0); Mean Platelet Volume 10.8 fL (9.4-12.4); Monocytes # 0.5 K/mcL (0.0-1.3); Monocytes % 8.7 %; Neutrophils # 3.8 K/mcL (1.6-8.9); Platelet Count 185 K/mcL (140-400); Red Blood Count 5.15 M/mcL (4.19-5.50); Red Cell Distribution Width 15.7 % (11.5-14.5); Segmented Neutrophils % 65.6 %
[2017-08-12 05:09] LABS: BUN/Creatinine Ratio 32 (6-26); Blood Urea Nitrogen 28 mg/dL (8-23); Calcium 9.3 mg/dL (8.6-10.3); Carbon Dioxide 27 mEq/L (23-29); Chloride 93 mEq/L (98-107); Glucose 336 mg/dL (70-105); Osmolality,Calculated 285 (280-300); Potassium 4.4 mEq/L (3.5-5.1); Sodium 128 mEq/L (136-145); eGFR For African Americans > 60 (> 60); eGFR For Non-African Americans > 60 (> 60)
[2017-08-12] MEDS: MethylPREDNISolone 40 MG/ML VIAL IVP SCH (05:59)
[2017-08-12] MEDS: *HR* Heparin 5,000 UNIT/ML VIAL SQ SCH (05:59)
[2017-08-12] MEDS: Acetaminophen 325 MG TABLET PO PRN (06:00)
[2017-08-12] MEDS ORDERED: Insulin LISPRO 300 UNITS/3 ML VIAL SQ SCH ×2 (08:26→21:00)
--- NOTE | 2017-08-12 08:51 | Physician Discharge Referral ---
<Taqueria Brizuela - Last Filed: 08/12/17 08:51> ExtendedCare Referral Info Transfer To: [facility] Provider in Charge: shelton allen Provider in Charge after Transfer: Other (ECF director) Institutional Level of Care: Intermediate - Diagnosis (1) Sepsis Status: Resolved (2) UTI (urinary tract infection) Status: Acute (3) HCAP (healthcare-associated pneumonia) Status: Acute (4) Influenza A Status: Acute (5) Uncontrolled type 2 diabetes mellitus with insulin therapy Status: Acute (6) Pressure ulcer Status: Acute (7) Morbid obesity with BMI of 45.0-49.9, adult Status: Acute (8) Acute and chronic respiratory failure with hypoxia Status: Resolved (9) COPD exacerbation Status: Acute (10) Hypertension Status: Chronic (11) Combined systolic and diastolic heart failure, acute Status: Acute (12) Shortness of breath Status: Acute (13) DVT prophylaxis Status: Acute - Transfer Medications Prescriptions: Levofloxacin [Levaquin] 500 mg PO DAILY 10 Days #10 tablet Oseltamivir [Tamiflu] 75 mg PO BID 7 Days #14 capsule Home Medications: Aspirin [Lo-Dose Aspirin EC] 81 mg PO DAILY 12/10/16 [History] Carvedilol [Coreg] 25 mg PO BID 12/10/16 [History] Gabapentin [Neurontin] 300 mg PO BID 12/10/16 [History] Insulin NPH Human Isophane [Novolin N] 30 unit SQ QPM 12/10/16 [History] Insulin NPH Human Isophane [Novolin N] 50 unit SQ QAM 12/10/16 [History] Insulin Regular, Human [Novolin R] 20 - 50 unit SQ TID 12/10/16 [History] Sertraline [Zoloft] 100 mg PO DAILY 12/10/16 [History] Lovastatin 10 mg PO HS 04/07/17 [History] Albuterol Sulfate [Albuterol Inhaler] 2 puff IH Q6HR #1 hfa.aer.ad 06/20/17 [Rx] Ipratropium/Albuterol Neb [Duoneb] 3 ml IH Q6HR 08/09/17 [History] traZODone [TraZODone] 50 mg PO HS 08/09/17 [History] Levofloxacin [Levaquin] 500 mg PO DAILY 10 Days #10 tablet 08/11/17 [Rx] Oseltamivir [Tamiflu] 75 mg PO BID 7 Days #14 capsule 08/11/17 [Rx] Allergies/Adverse Reactions: 3 Allergy/AdvReac Type Severity Reaction Status Date / Time No Known Drug Allergies Allergy See Verified 12/10/16 13:33 Comments - Respiratory Orders Smoking Cessation: Smoking cessation has been advised. For more information, call the [employer] Quit Line at 7-478-LEJA-NMN. CERTIFICATION: I certify that the transfer of the above named patient to an Extended Care Facility is necessary for the continuing treatment of the diagnosis listed. The above information is true and accurate reflection of patient's current condition. Confidential - Redisclosure prohibited without a patient's written consent. <Shelton Allen - Last Filed: 08/12/17 08:55> - Diagnosis (1) Acute and chronic respiratory failure with hypoxia Status: Resolved (2) Acute exacerbation of chronic obstructive airways disease Status: Resolved (3) Influenza A Status: Acute (4) Pneumonia Status: Suspected (5) Morbid obesity with BMI of 45.0-49.9, adult Status: Acute (6) Hypertension Status: Chronic (7) Diabetes Status: Chronic (8) Sepsis Status: Resolved (9) Combined systolic and diastolic heart failure, acute Status: Acute - Respiratory Orders Smoking Cessation: Smoking cessation has been advised. For more information, call the [employer] Quit Line at 9-659-SSJG-UML. CERTIFICATION: I certify that the transfer of the above named patient to an Extended Care Facility is necessary for the continuing treatment of the diagnosis listed. The above information is true and accurate reflection of patient's current condition. Confidential - Redisclosure prohibited without a patient's written consent.
[2017-08-12] MEDS: Aspirin Enteric Coated 81 MG Tablet PO SCH (09:31)
[2017-08-12] MEDS: levoFLOXacin 750 MG TABLET PO SCH (09:31)
[2017-08-12] MEDS: Insulin LISPRO 300 UNITS/3 ML VIAL SQ SCH (09:32)
[2017-08-12 11:30] VITALS: BP 135/60
[2017-08-12] MEDS: Silvasorb 44.4 ML TUBE TP SCH (12:04)
[2017-08-12] MEDS: Ondansetron 4 MG/2 ML VIAL IVP PRN (12:05)
--- NOTE | 2017-08-12 20:01 | Internal Med Progress Note ---
Date of Encounter: 08/12/17 Time of Encounter: 10:00 - Assessment and plan (1) Acute and chronic respiratory failure with hypoxia Status: Resolved Assessment and plan: Has improved with treatment. (2) Acute exacerbation of chronic obstructive airways disease Status: Resolved Assessment and plan: Resolved at this time. (3) Influenza A Status: Resolved Assessment and plan: IResolved at this time. (4) Pneumonia Status: Suspected Assessment and plan: Has improved with treatment. Discharge to SNF today. Qualifiers: Pneumonia type: due to other aerobic Gram-negative bacteria Laterality: right Lung location: unspecified part of lung Qualified Code(s): J15.6 - Pneumonia due to other Gram-negative bacteria (5) Morbid obesity with BMI of 45.0-49.9, adult Status: Chronic Assessment and plan: Discussed lifestyle modifications (6) Hypertension Status: Chronic Assessment and plan: Chronic issue Qualifiers: Hypertension type: essential hypertension Qualified Code(s): I10 - Essential (primary) hypertension (7) Diabetes Status: Chronic Assessment and plan: Chronic issue Qualifiers: Diabetes mellitus type: type 2 Diabetes mellitus complication status: with hyperglycemia Diabetes mellitus laborer marine terminal insulin use: with laborer marine terminal use Qualified Code(s): E11.65 - Type 2 diabetes mellitus with hyperglycemia; Z79.4 - terminal press operator (current) use of insulin; Z79.4 - terminal press operator (current) use of insulin ; Z79.4 - terminal press operator (current) use of insulin; Z79.4 - shelter (current) use of insulin (8) Sepsis Status: Resolved Qualifiers: Sepsis type: sepsis due to unspecified organism Qualified Code(s): A41.9 - Sepsis, unspecified organism (9) Combined systolic and diastolic heart failure, acute Status: Acute Assessment and plan: Per TTE in 2013 EF 15-20%, most recent attempt at a TTE in 12/09 unsuccessful due to poor body habitus -continue Coreg -strict intake and output monitoring - Subjective Interval history: Mr Wright has been admitted for acute influenza and COPD. He is ready today to go to SNF. Mr Wright feels OK today. No new issues overnight. He is to go to [facility] today. - Constitutional Vitals: Temp Pulse Resp BP Pulse Ox 97.9 F 81 18 135/60 95 08/12/17 11:29 08/12/17 11:29 08/12/17 16:00 08/12/17 11:29 08/12/17 16:00 General appearance: Present: cooperative, A&O X 3, morbidly obese, answers questions appropriately - Head Head exam: Present: normocephalic - Eye Eye exam: Present: EOMI, conjuntiva pink - ENT ENT exam: Present: mucous membranes dry - Respiratory Respiratory exam: Present: decreased breath sounds, wheezes. Absent: rales - Cardiovascular Cardiovascular exam: Present: distant heart sounds - GI/Abdominal GI/Abdominal exam: Present: soft. Absent: tenderness - Extremities Exam Extremities exam: Present: warm. Absent: tenderness - Neurological Exam Neurological exam: Present: alert, oriented X3 - Skin Skin exam: Present: warm. Absent: rash Internal Medicine: Result - Labs CBC & Chem 7: 08/12/17 03:46 08/12/17 03:46 Labs: Short CBC 08/12/17 Range/Units 03:46 WBC 5.7 (4.3-11.1) K/mcL Hgb 13.6 (12.9-16.9) g/dL Hct 41.9 (37.5-50.1) % Plt Count 185 (140-400) K/mcL Neutrophils # 3.8 (1.6-8.9) K/mcL BMP 08/12/17 03:46 Sodium 128 L Potassium 4.4 Chloride 93 L Carbon Dioxide 27 BUN 28 H Creatinine 0.88 Glucose 336 H Calcium 9.3 - ABG Interpretation ABG results: PT/INR, D-dimer PT 12.9 Seconds (9.4-12.1) H 08/09/17 13:35 Consult Discharge Plan - Plan Instructions: Diabetes Mellitus Type 2 in Adults (DC), Chronic Obstructive Pulmonary Disease (DC), Sepsis (DC), Chronic Hypertension (DC) Referrals: Myles Hart MD [Primary Care Provider] - 08/17/17 9:30 am Prescriptions: Levofloxacin [Levaquin] 500 mg PO DAILY 10 Days #10 tablet Oseltamivir [Tamiflu] 75 mg PO BID 7 Days #14 capsule
== END 2017-08-12 16:30 | disposition home health service (06) | DRG 871 ==
LOC: EMEROO 13:03 → 2NENU 13:03 → SUATTDRO 17:54
PROVIDERS: ADMIT Internal Medicine; ATTEND Internal Medicine

== ENCOUNTER 2017-10-04 10:20 | Inpatient (IN) ==
[2017-10-04] MEDS ORDERED: Ipratropium/Albuterol Neb 3 ML IH ONE (10:35)
--- NOTE | 2017-10-04 10:42 | Emergency Department Note ---
Disposition Clinical Impression: Congestive heart failure Qualifiers: Heart failure type: unspecified Heart failure chronicity: unspecified Qualified Code(s): I50.9 - Heart failure, unspecified Disposition: Admitted As Inpatient Condition: Fair Time of Disposition: 12:17 General Adult HPI - General Chief complaint: ED Shortness of Breath/Dyspnea Stated complaint: SUZAN Time Seen by Provider: 10/04/17 10:22 Source: patient, EMS, other Limitations: no limitations, physical limitation Nursing Notes Reviewed: Yes Vital Signs Reviewed: Yes - History of Present Illness HPI Narrative: 67-year-old male with a history of COPD, CHF, diabetes hypertension presents for evaluation of dyspnea. Patient's a poor historian. Patient states that he feels short of breath that has been worse over the past 2 days. Patient states he typically is on 2 L nasal cannula. Patient denies any chest pain. Patient does note a cough. No observed fevers. Patient is oxygen dependent. Patient denies any abdominal pain. No nausea or vomiting. Patient does have a history of recent pneumonia. Patient has been having increasing swelling. Dyspnea is worse with exertion. Pain Scale: 5 - Related Data Home Medications Medication Instructions Recorded Confirmed Aspirin [Lo-Dose Aspirin EC] 81 mg PO DAILY 12/10/16 10/04/17 Gabapentin [Neurontin] 300 mg PO BID 12/10/16 10/04/17 Insulin NPH Human Isophane 30 unit SQ QPM 12/10/16 10/04/17 [Novolin N] Insulin NPH Human Isophane 50 unit SQ QAM 12/10/16 10/04/17 [Novolin N] Insulin Regular, Human [Novolin R] 0 unit SQ AD 12/10/16 10/04/17 Sertraline [Zoloft] 100 mg PO DAILY 12/10/16 10/04/17 Lovastatin 10 mg PO HS 04/07/17 10/04/17 Ipratropium/Albuterol Neb [Duoneb] 3 ml IH Q6HR 08/09/17 10/04/17 traZODone [TraZODone] 50 mg PO HS 08/09/17 10/04/17 Acetaminophen [Tylenol] 650 mg PO Q4HR PRN 10/04/17 10/04/17 Amoxicillin [Amoxil] 500 mg PO TID 10/04/17 10/04/17 Carvedilol 12.5 mg PO BID 10/04/17 10/04/17 Diclofenac Sodium [Voltaren] 1 appl TP BID 10/04/17 10/04/17 Glucagon,Human Recombinant 1 mg IJ NOW PRN 10/04/17 10/04/17 [Glucagen] LORazepam [Ativan] 0.5 mg PO Q6HR PRN 10/04/17 10/04/17 Nystatin POWDER [Nystop] 1 appl TP BID PRN 10/04/17 10/04/17 Phenol [Chloraseptic] 1 spr MM Q2H PRN 10/04/17 10/04/17 Previous Rx's Medication Instructions Recorded Albuterol Sulfate [Albuterol 2 puff IH Q6HR #1 hfa.aer.ad 06/20/17 Inhaler] Allergies Allergy/AdvReac Type Severity Reaction Status Date / Time No Known Drug Allergies Allergy See Verified 08/20/17 15:01 Comments All systems ED: reviewed and negative except as stated. Constitutional: Denies: fever Cardiovascular: Denies: chest pain Respiratory: Reports: cough, dyspnea. Denies: sputum production Gastrointestinal: Denies: abdominal pain, nausea, vomiting Past Medical History - Past Medical History Source: patient Medical history: Reports: CHF, COPD, diabetes, hyperlipidemia, hypertension Surgical history: Reports: pacemaker/AICD, other Psychiatric history: Reports: depression - Social History Smoking Status: Former smoker Smokeless Tobacco Status: No Alcohol use: Reports: none Drug use: Reports: none Physical Exam - General Limitations: physical limitation General appearance: alert, in no apparent distress, obese - Head Head exam: atraumatic, normocephalic, normal inspection - Eye Eye exam: Present: normal appearance - ENT ENT exam: normal exam - Neck Neck exam: Present: normal inspection - Chest Chest inspection: Present: normal inspection, symmetric chest wall rise - Respiratory Respiratory exam: Present: other (diffuesly diminished ). Absent: normal lung sounds bilaterally, respiratory distress - Cardiovascular Cardiovascular exam: Present: regular rate, normal rhythm. Absent: systolic murmur - Abdominal Exam Abdominal exam: Present: soft - Extremities Exam Extremities exam: Present: normal inspection. Absent: pedal edema - Back Exam Back exam: Present: normal inspection - Neurological Exam Neurological exam: Present: alert - Skin Skin exam: Present: warm, dry, intact Course - Reevaluation(s) Reevaluation #1: Patient's chest x-ray show evidence of pulmonary edema with bilateral effusions. Appears worse than prior chest x-rays. Patient's symptoms most likely related to congestive heart failure. Patient will be diuresed as well as given nitroglycerin. Time: 11:59 Reevaluation #2: Patient seen and examined. Patient's updated on plan of care. Time: 12:04 Reevaluation #3: Patients resting comfortably on BiPAP Time: 12:56 Vital Signs Temperature 97.4 F L 10/04/17 10:32 Pulse Rate 72 10/04/17 10:32 Respiratory Rate 20 10/04/17 10:32 Blood Pressure 107/77 10/04/17 10:32 O2 Sat by Pulse Oximetry 92 10/04/17 10:32 Temperature 97.4 F L 10/04/17 10:32 Pulse Rate 68 10/04/17 12:21 Respiratory Rate 17 10/04/17 12:21 Blood Pressure 125/31 10/04/17 12:21 O2 Sat by Pulse Oximetry 95 10/04/17 12:21 Oxygen Delivery Oxygen Delivery Bipap Medical Decision Making - MDM Narrative Medical decision making narrative: 67-year-old male persists for evaluation of dyspnea. Patient's ED workup is most consistent with congestive heart failure. Patient's records reviewed shows that he had a technically difficult echo in the past. Patient does state that his ejection fraction is low. Patient's chest x-ray shows evidence of pulmonary edema with bilateral effusions. Patient has increasing oxygen requirement from 2-4 L. Patient labs including a large lites are unremarkable. Given the patient's symptoms he will be diuresed and on BiPAP with respiratory support and gradual diuresis. - Lab Data Lab results reviewed: Yes I reviewed the patient's lab results. Result diagrams: 10/04/17 10:55 10/04/17 10:55 Lab Results 10/04/17 10/04/17 10/04/17 Range/Units 10:55 10:55 10:55 WBC 8.5 (4.3-11.1) K/mcL RBC 5.69 H (4.19-5.50) M/mcL Hgb 14.9 (12.9-16.9) g/dL Hct 47.6 (37.5-50.1) % MCV 83.7 (83.0-100.0) fL MCH 26.2 L (28.0-33.3) pg MCHC 31.3 L (31.6-35.5) g/dL RDW 17.5 H (11.5-14.5) % Plt Count 192 (140-400) K/mcL MPV 10.4 (9.4-12.4) fL Immature Gran % 0.9 (0-4) % Seg Neutrophils % 68.3 % Lymphocytes % 21.2 % Monocytes % 6.1 % Eosinophils % 2.8 % Basophils % 0.7 % Neutrophils # 5.8 (1.6-8.9) K/mcL Lymphocytes # 1.8 (0.6-4.6) K/mcL Monocytes # 0.5 (0.0-1.3) K/mcL Eosinophils # 0.2 (0.0-0.6) K/mcL Basophils # 0.1 (0.0-0.2) K/mcL VBG pH (7.32-7.42) pH Units VBG pCO2 (41-51) mmHg VBG pO2 (25-50) mmHg VBG HCO3 (21-27) mEq/L Sodium 134 L (136-145) mEq/L Potassium 4.5 (3.5-5.1) mEq/L Chloride 98 (98-107) mEq/L Carbon Dioxide 28 (23-29) mEq/L BUN 16 (8-23) mg/dL Creatinine 0.91 (0.70-1.30) mg/dL Est GFR ( Amer) > 60 (> 60) Est GFR (Non-Af Amer) > 60 (> 60) BUN/Creatinine Ratio 18 (6-26) Glucose 156 H (70-105) mg/dL Calculated Osmolality 282 (280-300) Lactic Acid (0.5-2.2) mmol/L Calcium 9.8 (8.6-10.3) mg/dL Troponin I 0.03 (< 0.04) ng/mL B-Natriuretic Peptide 239 H (Less than 100) pg/mL Specimen Rejected 10/04/17 10/04/17 10/04/17 Range/Units 10:55 11:18 12:16 WBC (4.3-11.1) K/mcL RBC (4.19-5.50) M/mcL Hgb (12.9-16.9) g/dL Hct (37.5-50.1) % MCV (83.0-100.0) fL MCH (28.0-33.3) pg MCHC (31.6-35.5) g/dL RDW (11.5-14.5) % Plt Count (140-400) K/mcL MPV (9.4-12.4) fL Immature Gran % (0-4) % Seg Neutrophils % % Lymphocytes % % Monocytes % % Eosinophils % % Basophils % % Neutrophils # (1.6-8.9) K/mcL Lymphocytes # (0.6-4.6) K/mcL Monocytes # (0.0-1.3) K/mcL Eosinophils # (0.0-0.6) K/mcL Basophils # (0.0-0.2) K/mcL VBG pH 7.31 L (7.32-7.42) pH Units VBG pCO2 60 H (41-51) mmHg VBG pO2 41 (25-50) mmHg VBG HCO3 30 H (21-27) mEq/L Sodium (136-145) mEq/L Potassium (3.5-5.1) mEq/L Chloride (98-107) mEq/L Carbon Dioxide (23-29) mEq/L BUN (8-23) mg/dL Creatinine (0.70-1.30) mg/dL Est GFR ( Amer) (> 60) Est GFR (Non-Af Amer) (> 60) BUN/Creatinine Ratio (6-26) Glucose (70-105) mg/dL Calculated Osmolality (280-300) Lactic Acid 1.1 (0.5-2.2) mmol/L Calcium (8.6-10.3) mg/dL Troponin I (< 0.04) ng/mL B-Natriuretic Peptide (Less than 100) pg/mL Specimen Rejected Hemolyzed - Radiology Data Radiology results reviewed: Yes I reviewed the patient's radiology results. Chest X-Ray 10/04/17 10:35 IMPRESSION: Cardiomegaly with mild pulmonary edema and trace bilateral pleural effusions. D/ / Eliot Broderick MD / Eliot Broderick MD Interpreting Provider: Eliot Broderick MD - EKG Data EKG #1 EKG attestation: Yes I reviewed and interpreted this EKG. EKG shows normal: sinus rhythm Rate: normal Rhythm: NSR [place]/QRS: normal Q waves: II, III, v1, v2 Interpretation: no acute changes, nonspecific ST-T wave changes SWalter - Diann Situation: Demographics Background: Presenting Complaint Assessment: Vital Signs, Patient/Family Expectation Recommendation: Barrier(s) to disposition, Recommendation based on pending studies, treatments, or consults SWalter Report Given to: Dr. Prem Tidwell Repor Time: 12:17 Attestation Statement - Attestation Attestation: I examined this patient and my medical decision-making was reviewed with the Resident Physician. I agree with the documented findings, disposition and treatment plan as described except to the extent set forth below. Patient to ED with shortness of breath. Sent in from senior living. History CHF and COPD. On examination he has accessory muscle use with wheezing. Plan. Nebs and steroids. Patient tolerating BiPAP well this time. Patient with pulmonary edema and effusions on his chest x-ray. Admitted to medicine. 35 minutes of critical care exclusive of separately billable procedures.
[2017-10-04 11:10] LABS: Basophils # 0.1 K/mcL (0.0-0.2); Basophils % 0.7 %; Eosinophils # 0.2 K/mcL (0.0-0.6); Eosinophils % 2.8 %; Hematocrit 47.6 % (37.5-50.1); Hemoglobin 14.9 g/dL (12.9-16.9); Immature Granulocytes % 0.9 % (0-4); Lymphocytes # 1.8 K/mcL (0.6-4.6); Lymphocytes % 21.2 %; Mean Corpuscular HGB Conc 31.3 g/dL (31.6-35.5); Mean Corpuscular Hemoglobin 26.2 pg (28.0-33.3); Mean Corpuscular Volume 83.7 fL (83.0-100.0); Mean Platelet Volume 10.4 fL (9.4-12.4); Monocytes # 0.5 K/mcL (0.0-1.3); Monocytes % 6.1 %; Neutrophils # 5.8 K/mcL (1.6-8.9); Platelet Count 192 K/mcL (140-400); Red Blood Count 5.69 M/mcL (4.19-5.50); Red Cell Distribution Width 17.5 % (11.5-14.5); Segmented Neutrophils % 68.3 %
[2017-10-04 11:21] LABS: VBG HCO3 30 mEq/L (21-27); VBG PCO2 60 mmHg (41-51); VBG PH 7.31 pH Units (7.32-7.42); VBG PO2 41 mmHg (25-50)
[2017-10-04 11:33] LABS: BUN/Creatinine Ratio 18 (6-26); Blood Urea Nitrogen 16 mg/dL (8-23); Calcium 9.8 mg/dL (8.6-10.3); Carbon Dioxide 28 mEq/L (23-29); Chloride 98 mEq/L (98-107); Glucose 156 mg/dL (70-105); Osmolality,Calculated 282 (280-300); Potassium 4.5 mEq/L (3.5-5.1); Sodium 134 mEq/L (136-145); eGFR For African Americans > 60 (> 60); eGFR For Non-African Americans > 60 (> 60)
[2017-10-04] MEDS ORDERED: Nitroglycerin 1 INCH/GM PACKET TP ONE (11:56)
[2017-10-04] MEDS ORDERED: Furosemide 40 MG/4 ML VIAL IVP ONE (11:56)
[2017-10-04] MEDS ORDERED: Aspirin 81 MG TAB.CHEW PO ONE (12:04)
[2017-10-04 12:40] LABS: Troponin I 0.03 ng/mL (< 0.04)
[2017-10-04] MEDS ORDERED: Nystatin POWDER 30 GM BOTTLE TP STA (12:58)
--- NOTE | 2017-10-04 14:14 | Internal Med History&Physical ---
<Mc Calix - Last Filed: 10/04/17 17:49> Date of Encounter: 10/04/17 Time of Encounter: 14:13 Assessment and Plan (1) CHF exacerbation Current visit: Yes Status: Acute Patient presented to the hospital with shortness of breath. Patient has a known history of CHF. Chest x-ray demonstrated evidence of pulmonary edema with bilateral effusions. Laboratory analysis demonstrated an elevated BNP of 239. Last echocardiogram on 12/11/16 demonstrated the following -Technically challenging study with suboptimal windows. -With use of Definity, LV systolic function appears normal. -RV size visually appears mildly dilated. Function is normal in images visualized. -Doppler evidence for borderling aortic stenosis. -No significant TR gradient to suggest the presence of pulmonary hypertension. -IVC is not well visualized. Plan: -Lasix 40 mg IV twice a day -Strict intake and output, daily weights, cardiac diet, low sodium intake. Qualifiers: Qualified Code(s): I50.9 - Heart failure, unspecified (2) Acute respiratory failure Current visit: Yes Status: Acute Patient presents to the hospital with increasing shortness of breath. O2 saturation was 92 on arrival. Patient is normally oxygen dependent on 2 L Venous blood gas demonstrated the following: PH 7.31, PCO2 60, PO2 41, HCO3 30. Patient currently on BiPAP; O2 sat currently 95%. Plan: -DuoNeb's -Lasix 40 mg IV twice a day -BiPAP as needed Qualifiers: Qualified Code(s): J96.00 - Acute respiratory failure, unspecified whether with hypoxia or hypercapnia (3) Diabetes Current visit: No Status: Chronic Patient has known history of diabetes. Normally takes insulin at home. Insulin sliding scale Qualifiers: Diabetes mellitus type: type 2 Diabetes mellitus intermodal dispatcher insulin use: with intermodal dispatcher use Diabetes mellitus complication status: with hyperglycemia Qualified Code(s): E11.65 - Type 2 diabetes mellitus with hyperglycemia; Z79.4 - buttermilk drier operator (current) use of insulin; Z79.4 - buttermilk drier operator (current) use of insulin; Z79.4 - buttermilk drier operator (current) use of insulin; Z79.4 - senior living (current ) use of insulin (6) DVT prophylaxis Current visit: Yes Status: Acute heparin 5000 SQ Q12 Internal Medicine - H&P: HPI Chief complaint: Shortness of breath Admitted From: Long-term Nursing Facility History of present illness: 67-year-old male presented from [facility] with dyspnea. Short of breath worsening over the last 2 days. Normally on 2 L of oxygen at home. Completely oxygen dependent. History of recent pneumonia. Increasing swelling. Poor historian. On arrival, patient had an elevated respiratory rate 20 and an O2 saturation of 92. Chest x-ray demonstrated evidence of pulmonary edema with bilateral effusions. Appears worse than previous chest x-rays. One prior echo in the past; 12/11/16; was a technically difficult study. He was placed on BiPAP. Patient was seen and examined at bedside this afternoon. Patient is extremely tired; is unable to speak. Difficult even arouse. Patient will briefly wake up and then doze off. Review of systems is unattainable at this time. Past Med Surg Social Fam HX - Past Medical History Medical history: CHF, COPD, diabetes, hyperlipidemia, hypertension Psychiatric history: depression - Past Surgical History Surgical History: pacemaker/AICD, other - Social History Smoking Status: Former smoker Smokeless Tobacco Status: No Alcohol use: none Drug use: none - Family History Mother Living Status: Hx Family Cancer: Yes (brain tumor) Father Living Status: Hx Family Respiratory Disorders: Yes (COPD) Hx Family Endocrine Disorder: Yes (DM) Internal Medicine - H&P: Meds Aspirin [Lo-Dose Aspirin EC] 81 mg PO DAILY 12/10/16 [History] Gabapentin [Neurontin] 300 mg PO BID 12/10/16 [History] Insulin NPH Human Isophane [Novolin N] 30 unit SQ QPM 12/10/16 [History] Insulin NPH Human Isophane [Novolin N] 50 unit SQ QAM 12/10/16 [History] Insulin Regular, Human [Novolin R] 0 unit SQ AD 12/10/16 [History] Sertraline [Zoloft] 100 mg PO DAILY 12/10/16 [History] Lovastatin 10 mg PO HS 04/07/17 [History] Albuterol Sulfate [Albuterol Inhaler] 2 puff IH Q6HR #1 hfa.aer.ad 06/20/17 [Rx] Ipratropium/Albuterol Neb [Duoneb] 3 ml IH Q6HR 08/09/17 [History] traZODone [TraZODone] 50 mg PO HS 08/09/17 [History] Acetaminophen [Tylenol] 650 mg PO Q4HR PRN 10/04/17 [History] Amoxicillin [Amoxil] 500 mg PO TID 10/04/17 [History] Carvedilol 12.5 mg PO BID 10/04/17 [History] Diclofenac Sodium [Voltaren] 1 appl TP BID 10/04/17 [History] Glucagon,Human Recombinant [Glucagen] 1 mg IJ NOW PRN 10/04/17 [History] LORazepam [Ativan] 0.5 mg PO Q6HR PRN 10/04/17 [History] Nystatin POWDER [Nystop] 1 appl TP BID PRN 10/04/17 [History] Phenol [Chloraseptic] 1 spr MM Q2H PRN 10/04/17 [History] 3 Allergy/AdvReac Type Severity Reaction Status Date / Time No Known Drug Allergies Allergy See Verified 08/20/17 15:01 Comments ROS unobtainable: due to mental status All Systems PM: A 10-system review of systems was performed and is negative for pertinent findings except as documented above in the HPI. - Respiratory Respiratory: no excessive phlegm production - Constitutional Vitals: Temp Pulse Resp BP Pulse Ox 97.4 F L 68 18 106/54 95 10/04/17 10:32 10/04/17 12:21 10/04/17 13:35 10/04/17 13:35 10/04/17 12:21 Exam: Patient cannot be aroused. - Head Head exam: Present: atraumatic, normocephalic - Neck Neck exam general surgery: Absent: lymphadenopathy - Respiratory Respiratory exam: Present: decreased breath sounds, prolonged expiratory phase, rales, rhonchi, wheezes. Absent: accessory muscle use - Cardiovascular Cardiovascular exam: Present: RRR, +S1, +S2. Absent: diastolic murmur, gallop, rubs, systolic murmur - Skin Skin exam: Present: dry, intact Internal Med - H&P Results - Labs CBC & Chem 7: 10/04/17 10:55 10/04/17 10:55 <Luis Eduardo Flor - Last Filed: 10/05/17 12:18> Date of Encounter: 10/05/17 Internal Medicine - H&P: HPI History of present illness: Mr. Wright is a 67 year old male All Systems PM: A 10-system review of systems was performed and is negative for pertinent findings except as documented above in the HPI. - Constitutional Vitals: Temp Pulse Resp BP Pulse Ox 97.4 F L 74 20 118/62 96 10/05/17 11:55 10/05/17 11:55 10/05/17 11:55 10/05/17 11:55 10/05/17 11:55 Internal Med - H&P Results - Labs CBC & Chem 7: 10/05/17 06:13 10/05/17 06:13 Labs: Short CBC 10/05/17 Range/Units 06:13 WBC 10.5 (4.3-11.1) K/mcL Hgb 13.9 (12.9-16.9) g/dL Hct 45.0 (37.5-50.1) % Plt Count 217 (140-400) K/mcL Neutrophils # 7.3 (1.6-8.9) K/mcL BMP 10/05/17 06:13 Sodium 135 L Potassium 3.8 Chloride 99 Carbon Dioxide 27 BUN 23 Creatinine 0.89 Glucose 146 H Calcium 9.7 - Attending Attestation I examined this patient and my medical decision-making was reviewed with the Resident Physician. I agree with the documented findings, disposition and treatment plan as described except to the extent set forth below.
[2017-10-04] MEDS ORDERED: Naloxone 0.4 MG/ML INJ IVP PRN (15:40)
[2017-10-04] MEDS: Furosemide 40 MG/4 ML VIAL IVP SCH (20:02)
--- NOTE | 2017-10-04 20:43 | Electrocardiograph Report ---
[address] [place] [address] Test Date: 2017-10-04 Pat Name: Angel Wright Department: 104 Room: 2A55 Gender: M Staff Editor: : 1950 Requested By: Jesus Campo Order Number: [id number] Reading MD: Nik Romo MD Measurements Intervals [place] Rate: 69 P: 20 WV: 193 QRS: -38 QRSD: 92 T: 117 QT: 397 QTc: 416 Interpretive Statements SINUS RHYTHM LEFT ATRIAL ENLARGEMENT LOW QRS VOLTAGE IN PRECORDIAL LEADS ANTERIOR MYOCARDIAL INFARCTION, OF INDETERMINATE AGE INFERIOR MYOCARDIAL INFARCTION, PROBABLY OLD Electronically Signed On 10-04-2017 20:41:51 EDT by Nik Romo MD
[2017-10-05] MEDS ORDERED: *HR* LORazepam 0.5 MG TABLET PO PRN (02:09)
[2017-10-05] MEDS ORDERED: *HR* Dextrose 50 % in Water (Syg) 50 ML SYRINGE IVP PRN (02:11)
[2017-10-05] MEDS ORDERED: Dextrose Gel 15 GM/37.5 ML TUBE PO PRN ×2 (02:11)
[2017-10-05] MEDS ORDERED: D5% in Water 1,000 ML IVC PRN (02:11)
[2017-10-05] MEDS: Ipratropium/Albuterol Neb 3 ML IH SCH ×4 (05:00→21:30)
--- NOTE | 2017-10-05 07:20 | Internal Med Progress Note ---
<Mc Calix - Last Filed: 10/05/17 14:54> Date of Encounter: 10/05/17 Time of Encounter: 07:18 - Assessment and plan (1) CHF exacerbation Current Visit: Yes Status: Acute Assessment and plan: Patient presented to the hospital with shortness of breath. Patient has a known history of CHF. Chest x-ray demonstrated evidence of pulmonary edema with bilateral effusions. Laboratory analysis demonstrated an elevated BNP of 239. Last echocardiogram on 12/11/16 demonstrated the following -Technically challenging study with suboptimal windows. -With use of Definity, LV systolic function appears normal. -RV size visually appears mildly dilated. Function is normal in images visualized. -Doppler evidence for borderling aortic stenosis. -No significant TR gradient to suggest the presence of pulmonary hypertension. -IVC is not well visualized. Plan: -Lasix 40 mg IV twice a day -Strict intake and output, daily weights, cardiac diet, low sodium intake. Qualifiers: Qualified Code(s): I50.9 - Heart failure, unspecified (2) Acute respiratory failure Current Visit: Yes Status: Acute Assessment and plan: Patient presents to the hospital with increasing shortness of breath. O2 saturation was 92 on arrival. Patient is normally oxygen dependent on 2 L Venous blood gas demonstrated the following: PH 7.31, PCO2 60, PO2 41, HCO3 30. Patient currently on BiPAP; O2 sat currently 95%. Plan: -DuoNeb's -Lasix 40 mg IV twice a day -BiPAP as needed Qualifiers: Qualified Code(s): J96.00 - Acute respiratory failure, unspecified whether with hypoxia or hypercapnia (3) Diabetes Current Visit: No Status: Chronic Assessment and plan: Patient has known history of diabetes. -Normally takes insulin at home. -Insulin sliding scale -Cardiac/diabetic diet -Nutrition consult Qualifiers: Diabetes mellitus type: type 2 Diabetes mellitus terminal makeup operator insulin use: with penitentiary use Diabetes mellitus complication status: with hyperglycemia Qualified Code(s): E11.65 - Type 2 diabetes mellitus with hyperglycemia; Z79.4 - terminal makeup operator (current) use of insulin; Z79.4 - [facility] (current) use of insulin; Z79.4 - terminal makeup operator (current) use of insulin; Z79.4 - terminal makeup operator (current ) use of insulin (4) Anxiety Current Visit: Yes Status: Acute Assessment and plan: Ativan 0.5 mg by mouth every 6 hours when necessary (5) Hypertension Current Visit: Yes Status: Acute Assessment and plan: Coreg 12.5 mg by mouth twice a day Qualifiers: Qualified Code(s): I10 - Essential (primary) hypertension (6) DVT prophylaxis Current Visit: Yes Status: Acute Assessment and plan: heparin 5000 SQ Q12 (7) Sore throat Current Visit: Yes Status: Acute Assessment and plan: chloraseptic spray - Subjective Interval history: Patient was seen and examined at bedside this morning. Reports that he is feeling well today. Yesterday, patient was not able to have a conversation without dozing off to sleep. Today, patient appears much more alert and awake. He states that his breathing has mildly improved. Has not needed to use BiPAP at this morning. He denies having any chest pain, cough, fever, chills, nausea, vomiting, or malaise. He has no complaints at this time. - Constitutional Vitals: Temp Pulse Resp BP Pulse Ox 98.3 F 87 26 144/74 100 10/05/17 03:50 10/05/17 03:50 10/05/17 05:00 10/05/17 03:50 10/05/17 05:00 General appearance: Present: A&O X 3 - Head Head exam: Present: atraumatic, normocephalic - Eye Eye exam: Present: PERRL, conjuntiva pink, sclera anicteric Pupils: Present: PERRL - Neck Neck exam general surgery: Present: supple, trachea midline. Absent: lymphadenopathy - Respiratory Respiratory exam: Present: prolonged expiratory phase, rhonchi. Absent: accessory muscle use, rales, wheezes Additional comments: Bibasilar crackles - Cardiovascular Cardiovascular exam: Present: RRR, +S1, +S2. Absent: diastolic murmur, gallop, rubs, systolic murmur - GI/Abdominal GI/Abdominal exam: Present: normal bowel sounds, soft, no peritoneal signs. Absent: distended, tenderness - Extremities Exam Extremities exam: Present: warm, radial pulses palpable and symmetrical. Absent : calf tenderness, cyanotic, pedal edema - Skin Skin exam: Present: dry, intact Internal Medicine: Result - Labs CBC & Chem 7: 10/05/17 06:13 10/05/17 06:13 Consult Discharge Plan - Plan Referrals: Myles Hart MD [Primary Care Provider] - <Isauro Vickers T - Last Filed: 10/05/17 15:36> Date of Encounter: 10/05/17 - Assessment and plan (1) CHF exacerbation Current Visit: Yes Status: Acute Qualifiers: Qualified Code(s): I50.9 - Heart failure, unspecified (2) Acute respiratory failure Current Visit: Yes Status: Acute Qualifiers: Qualified Code(s): J96.00 - Acute respiratory failure, unspecified whether with hypoxia or hypercapnia (3) Diabetes Current Visit: No Status: Chronic Qualifiers: Diabetes mellitus type: type 2 Diabetes mellitus penitentiary insulin use: with terminal makeup operator use Diabetes mellitus complication status: with hyperglycemia Qualified Code(s): E11.65 - Type 2 diabetes mellitus with hyperglycemia; Z79.4 - terminal makeup operator (current) use of insulin; Z79.4 - [facility] (current) use of insulin; Z79.4 - [facility] (current) use of insulin; Z79.4 - terminal makeup operator (current ) use of insulin (4) Anxiety Current Visit: Yes Status: Acute (5) Hypertension Current Visit: Yes Status: Acute Qualifiers: Qualified Code(s): I10 - Essential (primary) hypertension (6) DVT prophylaxis Current Visit: Yes Status: Acute (7) Sore throat Current Visit: Yes Status: Acute - Constitutional Vitals: Temp Pulse Resp BP Pulse Ox 97.4 F L 74 20 118/62 96 10/05/17 11:55 10/05/17 11:55 10/05/17 11:55 10/05/17 11:55 10/05/17 11:55 Internal Medicine: Result - Labs CBC & Chem 7: 10/05/17 06:13 10/05/17 06:13 Labs: Short CBC 10/05/17 Range/Units 06:13 WBC 10.5 (4.3-11.1) K/mcL Hgb 13.9 (12.9-16.9) g/dL Hct 45.0 (37.5-50.1) % Plt Count 217 (140-400) K/mcL Neutrophils # 7.3 (1.6-8.9) K/mcL BMP 10/05/17 06:13 Sodium 135 L Potassium 3.8 Chloride 99 Carbon Dioxide 27 BUN 23 Creatinine 0.89 Glucose 146 H Calcium 9.7 - Attending Attestation I have independently seen and examined this patient on 10/05/17 admitted and being managed for acute on chronic resp failure secondary to pneumonia, [facility], Complained of sore throat, diuressing appropriately, breathing has improved Continue current management, add lozenges prn, continue strict I/Os, continue daily weights and fluid restriction Rest is as in the resident physician's documentation
[2017-10-05 07:23] LABS: BUN/Creatinine Ratio 26 (6-26); Blood Urea Nitrogen 23 mg/dL (8-23); Calcium 9.7 mg/dL (8.6-10.3); Carbon Dioxide 27 mEq/L (23-29); Chloride 99 mEq/L (98-107); Glucose 146 mg/dL (70-105); Osmolality,Calculated 286 (280-300); Potassium 3.8 mEq/L (3.5-5.1); Sodium 135 mEq/L (136-145); eGFR For African Americans > 60 (> 60); eGFR For Non-African Americans > 60 (> 60)
[2017-10-05 07:47] LABS: Basophils % 0.3 %; Eosinophils % 0.1 %; Hemoglobin 13.9 g/dL (12.9-16.9); Lymphocytes # 2.1 K/mcL (0.6-4.6); Lymphocytes % 20.2 %; Mean Corpuscular HGB Conc 30.9 g/dL (31.6-35.5); Mean Corpuscular Hemoglobin 25.9 pg (28.0-33.3); Mean Corpuscular Volume 83.8 fL (83.0-100.0); Mean Platelet Volume 11.2 fL (9.4-12.4); Monocytes # 0.9 K/mcL (0.0-1.3); Monocytes % 8.5 %; Neutrophils # 7.3 K/mcL (1.6-8.9); Platelet Count 217 K/mcL (140-400); Red Blood Count 5.37 M/mcL (4.19-5.50); Red Cell Distribution Width 16.5 % (11.5-14.5); Segmented Neutrophils % 69.9 %
[2017-10-05] MEDS ORDERED: Chloraseptic Spray 177 ML BOTTLE MM PRN (08:29)
[2017-10-05] MEDS: Insulin LISPRO 300 UNITS/3 ML VIAL SQ SCH ×3 (08:39→16:37)
[2017-10-05] MEDS: Furosemide 40 MG/4 ML VIAL IVP SCH ×2 (08:40→16:36)
[2017-10-05] MEDS: Aspirin Enteric Coated 81 MG Tablet PO SCH (08:40)
[2017-10-05] MEDS: Nystatin POWDER 30 GM BOTTLE TP PRN (08:50)
[2017-10-05] MEDS ORDERED: (Diclofenac Sodium [Voltaren] 1 APPL) TP SCH (09:00)
[2017-10-05] MEDS: Acetaminophen 325 MG TABLET PO PRN ×2 (10:52→23:47)
[2017-10-05] MEDS: Insulin DETEMIR 100 UNIT/ML X5UNITS SQ SCH (10:53)
[2017-10-05] MEDS: Chloraseptic Spray 177 ML BOTTLE MM PRN (16:38)
[2017-10-05] MEDS ORDERED: traZODone 50 MG TABLET PO SCH (21:00)
[2017-10-05] MEDS ORDERED: Insulin LISPRO 300 UNITS/3 ML VIAL SQ SCH (21:00)
[2017-10-06] MEDS: Ipratropium/Albuterol Neb 3 ML IH SCH ×2 (04:33→10:38)
[2017-10-06] MEDS: Aspirin Enteric Coated 81 MG Tablet PO SCH (07:47)
[2017-10-06] MEDS: Furosemide 40 MG/4 ML VIAL IVP SCH (07:47)
[2017-10-06] MEDS: Acetaminophen 325 MG TABLET PO PRN (07:47)
[2017-10-06] MEDS: Nystatin POWDER 30 GM BOTTLE TP PRN (07:48)
[2017-10-06] MEDS: Insulin LISPRO 300 UNITS/3 ML VIAL SQ SCH ×2 (07:48→12:18)
[2017-10-06] MEDS: Chloraseptic Spray 177 ML BOTTLE MM PRN (07:49)
--- NOTE | 2017-10-06 07:53 | Internal Med Progress Note ---
Date of Encounter: 10/06/17 Time of Encounter: 07:52 - Assessment and plan (1) CHF exacerbation Current Visit: Yes Status: Acute Assessment and plan: Patient presented to the hospital with shortness of breath. Patient has a known history of CHF. Chest x-ray demonstrated evidence of pulmonary edema with bilateral effusions. Laboratory analysis demonstrated an elevated BNP of 239. Last echocardiogram on 12/11/16 demonstrated the following -Technically challenging study with suboptimal windows. -With use of Definity, LV systolic function appears normal. -RV size visually appears mildly dilated. Function is normal in images visualized. -Doppler evidence for borderling aortic stenosis. -No significant TR gradient to suggest the presence of pulmonary hypertension. -IVC is not well visualized. Plan: -Lasix 40 mg IV twice a day -Strict intake and output, daily weights, cardiac diet, low sodium intake. -I/O Balance: 790 (2) Acute respiratory failure Current Visit: Yes Status: Acute Assessment and plan: Patient presents to the hospital with increasing shortness of breath. O2 saturation was 92 on arrival. Patient is normally oxygen dependent on 2 L Venous blood gas demonstrated the following: PH 7.31, PCO2 60, PO2 41, HCO3 30. Patient currently on BiPAP; O2 sat currently 95%. Plan: -DuoNeb's -Lasix 40 mg IV twice a day -BiPAP as needed (3) Diabetes Current Visit: No Status: Chronic Assessment and plan: Patient has known history of diabetes. -Normally takes insulin at home. -Insulin sliding scale -Cardiac/diabetic diet Qualifiers: Diabetes mellitus type: type 2 Diabetes mellitus shelter insulin use: with oil heaterman use Diabetes mellitus complication status: with hyperglycemia Qualified Code(s): E11.65 - Type 2 diabetes mellitus with hyperglycemia; Z79.4 - 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 (current) use of insulin; Z79.4 - 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 (current) use of insulin; Z79.4 - nursing home (current) use of insulin; Z79.4 - 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 (current ) use of insulin (4) Anxiety Current Visit: Yes Status: Acute Assessment and plan: Ativan 0.5 mg by mouth every 6 hours when necessary (5) Hypertension Current Visit: Yes Status: Acute Assessment and plan: Coreg 12.5 mg by mouth twice a day (6) DVT prophylaxis Current Visit: Yes Status: Acute Assessment and plan: heparin 5000 SQ Q12 (7) Sore throat Current Visit: Yes Status: Acute Assessment and plan: chloraseptic spray - Subjective Interval history: Patient was seen and examined at bedside this morning. Patient states that he slept well last night. Denies having to use BiPAP today. States that his breathing has improved. Admits to having good urinary output. Denies fever, chills, cough, shortness of breath, or chest pain. Currently on O2 via nasal cannula. Patient is resting comfortably in bed and has no complaints at this time. - Constitutional Vitals: Temp Pulse Resp BP Pulse Ox 97.6 F 83 16 107/57 90 10/06/17 07:34 10/06/17 07:34 10/06/17 07:34 10/06/17 07:34 10/06/17 07:34 General appearance: Present: A&O X 3 - Head Head exam: Present: atraumatic, normocephalic - Eye Eye exam: Present: PERRL, conjuntiva pink, sclera anicteric Pupils: Present: PERRL - Neck Neck exam general surgery: Present: supple, trachea midline. Absent: lymphadenopathy - Respiratory Respiratory exam: Present: decreased breath sounds, rales. Absent: accessory muscle use, rhonchi, wheezes Additional comments: Bibasilar crackles - Cardiovascular Cardiovascular exam: Present: RRR, +S1, +S2. Absent: diastolic murmur, gallop, rubs, systolic murmur - GI/Abdominal GI/Abdominal exam: Present: normal bowel sounds, soft, no peritoneal signs. Absent: distended, tenderness - Extremities Exam Extremities exam: Present: warm, radial pulses palpable and symmetrical. Absent : calf tenderness, cyanotic, pedal edema - Neurological Exam Neurological exam: Present: CN II-XII intact, oriented X3, no focal deficits. Absent: pronater drift, facial droop, speech deficit - Skin Skin exam: Present: dry, intact Internal Medicine: Result - Labs CBC & Chem 7: 10/06/17 07:53 10/06/17 07:53 Consult Discharge Plan - Plan Referrals: Myles Hart MD [Primary Care Provider] -
[2017-10-06 08:06] LABS: Basophils # 0.1 K/mcL (0.0-0.2); Basophils % 0.6 %; Eosinophils # 0.2 K/mcL (0.0-0.6); Eosinophils % 1.9 %; Hematocrit 43.4 % (37.5-50.1); Hemoglobin 13.5 g/dL (12.9-16.9); Lymphocytes # 2.3 K/mcL (0.6-4.6); Lymphocytes % 23.8 %; Mean Corpuscular HGB Conc 31.1 g/dL (31.6-35.5); Mean Corpuscular Hemoglobin 26.1 pg (28.0-33.3); Mean Corpuscular Volume 83.9 fL (83.0-100.0); Monocytes # 0.8 K/mcL (0.0-1.3); Monocytes % 8.5 %; Neutrophils # 6.3 K/mcL (1.6-8.9); Platelet Count 178 K/mcL (140-400); Red Blood Count 5.17 M/mcL (4.19-5.50); Red Cell Distribution Width 16.5 % (11.5-14.5); Segmented Neutrophils % 64.2 %
[2017-10-06 08:36] LABS: BUN/Creatinine Ratio 34 (6-26); Blood Urea Nitrogen 29 mg/dL (8-23); Calcium 9.4 mg/dL (8.6-10.3); Carbon Dioxide 29 mEq/L (23-29); Chloride 98 mEq/L (98-107); Glucose 160 mg/dL (70-105); Osmolality,Calculated 289 (280-300); Potassium 3.5 mEq/L (3.5-5.1); Sodium 135 mEq/L (136-145); eGFR For African Americans > 60 (> 60); eGFR For Non-African Americans > 60 (> 60)
[2017-10-06] MEDS: Insulin DETEMIR 100 UNIT/ML X5UNITS SQ SCH (10:10)
[2017-10-06] MEDS ORDERED: Saline Nasal Spray 44 ML BOTTLE NS PRN (10:13)
[2017-10-06 11:59] VITALS: BP 113/49
--- NOTE | 2017-10-06 12:44 | Discharge Summary ---
<YogiMc oneil - Last Filed: 10/06/17 13:28> Orders not resulted at time of discharge: Pending orders 10/07/17 04:00 Basic Metabolic Panel AM 0400 Complete Blood Count [HEME] AM 0400 Date of Encounter: 10/06/17 Time of Encounter: 11:44 - Discharge Diagnosis (1) CHF exacerbation Priority: Primary Status: Acute Qualifiers: Qualified Code(s): I50.9 - Heart failure, unspecified (2) Acute respiratory failure Priority: Secondary Status: Acute Qualifiers: Qualified Code(s): J96.00 - Acute respiratory failure, unspecified whether with hypoxia or hypercapnia (3) Diabetes Priority: Secondary Status: Chronic Qualifiers: Diabetes mellitus type: type 2 Diabetes mellitus termination clerk insulin use: with termination clerk use Diabetes mellitus complication status: with hyperglycemia Qualified Code(s): E11.65 - Type 2 diabetes mellitus with hyperglycemia; Z79.4 - technician terminal and repeater (current) use of insulin; Z79.4 - technician terminal and repeater (current) use of insulin; Z79.4 - technician terminal and repeater (current) use of insulin; Z79.4 - [facility] (current ) use of insulin (4) Anxiety Priority: Secondary Status: Acute (5) Hypertension Priority: Secondary Status: Acute Qualifiers: Qualified Code(s): I10 - Essential (primary) hypertension (6) DVT prophylaxis Priority: Secondary Status: Acute (7) Sore throat Priority: Secondary Status: Acute Hospital course: Mr. Wright is a 67 year old male who presented from [facility] with dyspnea. Short of breath worsening over the last 2 days. Normally on 2 L of oxygen at home. Completely oxygen dependent. History of recent pneumonia. Increasing swelling. Poor historian. On arrival, patient had an elevated respiratory rate 20 and an O2 saturation of 92. Chest x-ray demonstrated evidence of pulmonary edema with bilateral effusions. Appears worse than previous chest x- rays. One prior echo in the past; 12/11/16; was a technically difficult study. He was placed on BiPAP. While in the hospital, patient was given lasix 40 mg IV BID. Patient gradually improved during his stay in the hospital. His fatigue and shortness of breath both resolved. Patient was seen and examined at bedside this morning. Patient states that he slept well last night. Denies having to use BiPAP today. States that his breathing has improved. Admits to having good urinary output. Denies fever, chills, cough, shortness of breath, or chest pain. Currently on O2 via nasal cannula. Patient is resting comfortably in bed and has no complaints at this time. Patient will be discharged back to [facility] on 40 mg lasix PO daily. - Time Spent with Patient Total time spent providing and/or coordinating discharge services: - Discharge Medications Prescriptions: Furosemide Oral Soln [Lasix] 40 mg PO DAILY #30 solution Home Medications: Aspirin [Lo-Dose Aspirin EC] 81 mg PO DAILY 12/10/16 [History] Gabapentin [Neurontin] 300 mg PO BID 12/10/16 [History] Insulin NPH Human Isophane [Novolin N] 30 unit SQ QPM 12/10/16 [History] Insulin NPH Human Isophane [Novolin N] 50 unit SQ QAM 12/10/16 [History] Insulin Regular, Human [Novolin R] 0 unit SQ AD 12/10/16 [History] Sertraline [Zoloft] 100 mg PO DAILY 12/10/16 [History] Lovastatin 10 mg PO HS 04/07/17 [History] Albuterol Sulfate [Albuterol Inhaler] 2 puff IH Q6HR #1 hfa.aer.ad 06/20/17 [Rx] Ipratropium/Albuterol Neb [Duoneb] 3 ml IH Q6HR 08/09/17 [History] traZODone [TraZODone] 50 mg PO HS 08/09/17 [History] Acetaminophen [Tylenol] 650 mg PO Q4HR PRN 10/04/17 [History] Amoxicillin [Amoxil] 500 mg PO TID 10/04/17 [History] Carvedilol 12.5 mg PO BID 10/04/17 [History] Diclofenac Sodium [Voltaren] 1 appl TP BID 10/04/17 [History] Glucagon,Human Recombinant [Glucagen] 1 mg IJ NOW PRN 10/04/17 [History] LORazepam [Ativan] 0.5 mg PO Q6HR PRN 10/04/17 [History] Nystatin POWDER [Nystop] 1 appl TP BID PRN 10/04/17 [History] Phenol [Chloraseptic] 1 spr MM Q2H PRN 10/04/17 [History] Furosemide Oral Soln [Lasix] 40 mg PO DAILY #30 solution 10/06/17 [Rx] Allergies/Adverse Reactions: 3 Allergy/AdvReac Type Severity Reaction Status Date / Time No Known Drug Allergies Allergy See Verified 08/20/17 15:01 Comments Date of admission: 10/04/17 15:40 Primary care physician: Myles Hart MD Consults: 10/04/17 19:05 Consult to Nutrition [CONS] Routine Comment: Consulting Provider: NUTRITION Reason for Dietary Consult: MST Score 10/05/17 09:21 Consult to Nurse Navigator [CONS] Routine Comment: CHF Discharging clinician: Mc Calix Anticipated date of discharge: 10/06/17 - Constitutional Vitals: Temp Pulse Resp BP Pulse Ox 97.6 F 83 16 107/57 90 10/06/17 07:34 10/06/17 07:34 10/06/17 10:39 10/06/17 07:34 10/06/17 10:39 General appearance: Present: A&O X 3 - Head Head exam: Present: atraumatic, normocephalic - Eye Eye exam: Present: PERRL, conjuntiva pink, sclera anicteric Pupils: Present: PERRL - Neck Neck exam general surgery: Present: supple, trachea midline. Absent: lymphadenopathy - Respiratory Respiratory exam: Present: CTAB. Absent: accessory muscle use, rales, rhonchi, wheezes - Cardiovascular Cardiovascular exam: Present: RRR, +S1, +S2. Absent: diastolic murmur, gallop, rubs, systolic murmur - Extremities Exam Extremities exam: Present: warm, radial pulses palpable and symmetrical. Absent : calf tenderness, cyanotic, pedal edema - Neurological Exam Neurological exam: Present: CN II-XII intact, oriented X3, no focal deficits. Absent: pronater drift, facial droop, speech deficit - Skin Skin exam: Present: dry, intact - Patient Status Disposition: Transfer SNF Condition: Fair Overall status at discharge: patient is progressing back to baseline - Discharge Instructions Instructions: Furosemide (By mouth) Follow Up With: Myles Hart MD [Primary Care Provider] - - Diet and Activity Activity: increase activity as tolerated Diet: advance to your usual diet <Isauro Vickers - Last Filed: 10/06/17 14:52> Orders not resulted at time of discharge: Pending orders 10/07/17 04:00 Basic Metabolic Panel AM 0400 Complete Blood Count [HEME] AM 0400 Date of Encounter: 10/06/17 - Discharge Diagnosis (1) CHF exacerbation Status: Acute Qualifiers: Qualified Code(s): I50.9 - Heart failure, unspecified (2) Acute respiratory failure Status: Acute Qualifiers: Qualified Code(s): J96.00 - Acute respiratory failure, unspecified whether with hypoxia or hypercapnia (3) Diabetes Status: Chronic Qualifiers: Diabetes mellitus type: type 2 Diabetes mellitus termination clerk insulin use: with termination clerk use Diabetes mellitus complication status: with hyperglycemia Qualified Code(s): E11.65 - Type 2 diabetes mellitus with hyperglycemia; Z79.4 - technician terminal and repeater (current) use of insulin; Z79.4 - technician terminal and repeater (current) use of insulin; Z79.4 - technician terminal and repeater (current) use of insulin; Z79.4 - technician terminal and repeater (current ) use of insulin (4) Anxiety Status: Acute (5) Hypertension Status: Acute Qualifiers: Qualified Code(s): I10 - Essential (primary) hypertension (6) DVT prophylaxis Status: Acute (7) Sore throat Status: Acute (8) CHF (congestive heart failure) Priority: Secondary Status: Chronic Qualifiers: Heart failure type: diastolic Heart failure chronicity: acute on chronic Qualified Code(s): I50.33 - Acute on chronic diastolic (congestive) heart failure (9) Acute and chronic respiratory failure with hypoxia Priority: Primary Status: Resolved Hospital course: Mr. Wright is a 67 year old male - Time Spent with Patient Total time spent providing and/or coordinating discharge services: Greater than 30 minutes Date of admission: 10/04/17 15:40 Primary care physician: Myles Hart MD Consults: 10/04/17 19:05 Consult to Nutrition [CONS] Routine Comment: Consulting Provider: NUTRITION Reason for Dietary Consult: MST Score 10/05/17 09:21 Consult to Nurse Navigator [CONS] Routine Comment: CHF - Constitutional Vitals: Temp Pulse Resp BP Pulse Ox 98.4 F 80 17 113/49 92 10/06/17 11:57 10/06/17 11:57 10/06/17 11:57 10/06/17 11:57 10/06/17 11:57 - Attending Attestation I examined this patient and my medical decision-making was reviewed with the Resident Physician. I agree with the documented findings, disposition and treatment plan as described except to the extent set forth below. 67 M, bed-bound, receiving PT at [facility], Morbid Obesity, DM, Anxiety, admitted for management of SOB due to CHFE, CXR on admission showed pulm edema, hence patient was managed for CHFE He also has chronic resp failure and is on 2L O2 by nasal cannula, required BiPAP on admission, now back to his baseline, he was not on lasix at SNF Seen and examined this morning, chest is CTAB, breath sounds distant possibly due to body habitus, no pedal edema Labs stable. Poor ECHO from 11/2016, not repeated Stable to be discharged on lasix, rest of details as in the resident physicians ' documentation
--- NOTE | 2017-10-06 14:05 | Physician Discharge Referral ---
ExtendedCare Referral Info Transfer To: [facility] Provider in Charge after Transfer: PCP Institutional Level of Care: Skilled - Diagnosis (1) CHF exacerbation Priority: Primary (Patient will be started on Lasix 40 mg PO daily. Follow up with BMP in one week to check renal function.) Status: Acute (2) Acute respiratory failure Priority: Secondary Status: Acute (3) Diabetes Priority: Secondary Status: Chronic (4) Anxiety Priority: Secondary Status: Acute (5) Hypertension Priority: Secondary Status: Acute (6) DVT prophylaxis Priority: Secondary Status: Acute (7) Sore throat Priority: Secondary Status: Acute - Transfer Medications Prescriptions: Furosemide Oral Soln [Lasix] 40 mg PO DAILY #30 solution Home Medications: Aspirin [Lo-Dose Aspirin EC] 81 mg PO DAILY 12/10/16 [History] Gabapentin [Neurontin] 300 mg PO BID 12/10/16 [History] Insulin NPH Human Isophane [Novolin N] 30 unit SQ QPM 12/10/16 [History] Insulin NPH Human Isophane [Novolin N] 50 unit SQ QAM 12/10/16 [History] Insulin Regular, Human [Novolin R] 0 unit SQ AD 12/10/16 [History] Sertraline [Zoloft] 100 mg PO DAILY 12/10/16 [History] Lovastatin 10 mg PO HS 04/07/17 [History] Albuterol Sulfate [Albuterol Inhaler] 2 puff IH Q6HR #1 hfa.aer.ad 06/20/17 [Rx] Ipratropium/Albuterol Neb [Duoneb] 3 ml IH Q6HR 08/09/17 [History] traZODone [TraZODone] 50 mg PO HS 08/09/17 [History] Acetaminophen [Tylenol] 650 mg PO Q4HR PRN 10/04/17 [History] Amoxicillin [Amoxil] 500 mg PO TID 10/04/17 [History] Carvedilol 12.5 mg PO BID 10/04/17 [History] Diclofenac Sodium [Voltaren] 1 appl TP BID 10/04/17 [History] Glucagon,Human Recombinant [Glucagen] 1 mg IJ NOW PRN 10/04/17 [History] LORazepam [Ativan] 0.5 mg PO Q6HR PRN 10/04/17 [History] Nystatin POWDER [Nystop] 1 appl TP BID PRN 10/04/17 [History] Phenol [Chloraseptic] 1 spr MM Q2H PRN 10/04/17 [History] Furosemide Oral Soln [Lasix] 40 mg PO DAILY #30 solution 10/06/17 [Rx] Allergies/Adverse Reactions: 3 Allergy/AdvReac Type Severity Reaction Status Date / Time No Known Drug Allergies Allergy See Verified 08/20/17 15:01 Comments - Respiratory Orders Smoking Cessation: Smoking cessation has been advised. For more information, call the [place] Tobacco Quit Line at 9-833-GUNGNOW. CERTIFICATION: I certify that the transfer of the above named patient to an Extended Care Facility is necessary for the continuing treatment of the diagnosis listed. The above information is true and accurate reflection of patient's current condition. Confidential - Redisclosure prohibited without a patient's written consent.
== END 2017-10-06 15:04 | DRG 291 ==
LOC: 2ANU 10:20 → EMEROO 10:20 → 2ANU 13:36 → SUATTDRO 15:40
PROVIDERS: ADMIT Internal Medicine; ATTEND Internal Medicine

== ENCOUNTER 2017-12-12 06:10 | Inpatient (IN) ==
[2017-12-12] MEDS ORDERED: 0.9 % Sodium Chloride 1,000 ML IVC ONE (06:27)
[2017-12-12 06:40] LABS: Bilirubin,Urine Negative (Negative); Blood,Urine Small (Negative); Clarity,Urine Cloudy (Clear); Color,Urine Yellow (Yellow); Glucose,Urine (UA) Normal (Normal); Ketones,Urine Negative (Negative); Leukocyte Esterase,Urine Moderate (Negative); Nitrite,Urine Negative (Negative); Protein,Urine Trace mg/dL (Neg-Trace); Urobilinogen,Urine Normal (Normal)
--- NOTE | 2017-12-12 06:41 | Emergency Department Note ---
Disposition Clinical Impression: Ureterolithiasis, Pyuria, Elevated troponin, Urinary retention Mental status change Qualifiers: Altered mental status type: disorientation Qualified Code(s): R41.0 - Disorientation, unspecified Fever Qualifiers: Fever type: unspecified Qualified Code(s): R50.9 - Fever, unspecified CHF (congestive heart failure) Qualifiers: Heart failure type: diastolic Heart failure chronicity: acute on chronic Qualified Code(s): I50.33 - Acute on chronic diastolic (congestive) heart failure Disposition: Admitted As Inpatient Condition: Fair Referrals: Ander Blankenship MD [Primary Care Provider] - Fever HPI - General Stated Complaint: "sick" Time Seen by Provider: 12/12/17 06:20 Source: patient, EMS, other ([facility] report) Mode of arrival: EMS Limitations: altered mental status Nursing Notes Reviewed: Yes Vital Signs Reviewed: Yes (139/108, 98, 94%, temp 101 per EMS) - History of Present Illness Pt Subjective Complaint: fever, malaise, rigors, other (change in mental status) Onset (ago): hour(s) Maximum Temperature Reported: 101 F (EMS) Temperature Source: other Context: recent antibiotic use (previous uti - Jul on ABX) Associated symptoms: Reports: rigors, altered mental status. Denies: headache, rhinorrhea, cough, chest pain, dyspnea, abdominal pain, nausea, vomiting, diarrhea, rash, night sweats Improves with: nothing Worsens with: nothing Treatments prior to arrival fever: none - Related Data Home Medications Medication Instructions Recorded Confirmed Aspirin [Lo-Dose Aspirin EC] 81 mg PO DAILY 12/10/16 10/04/17 Gabapentin [Neurontin] 300 mg PO BID 12/10/16 10/04/17 Sertraline [Zoloft] 100 mg PO DAILY 12/10/16 10/04/17 Lovastatin 10 mg PO HS 04/07/17 10/04/17 Ipratropium/Albuterol Neb [Duoneb] 3 ml IH Q6HR 08/09/17 10/04/17 traZODone [TraZODone] 50 mg PO HS 08/09/17 10/04/17 Acetaminophen [Tylenol] 650 mg PO Q4HR PRN 10/04/17 10/04/17 Carvedilol 12.5 mg PO BID 10/04/17 10/04/17 Diclofenac Sodium [Voltaren] 1 appl TP BID 10/04/17 10/04/17 Glucagon,Human Recombinant 1 mg IJ NOW PRN 10/04/17 10/04/17 [Glucagen] Phenol [Chloraseptic] 1 spr MM Q2H PRN 10/04/17 10/04/17 Fluticasone Propionate Nasal 2 spr NS DAILY 12/12/17 12/12/17 [Flonase] Fluticasone/Umeclidin/Vilanter 1 puff IH DAILY 12/12/17 12/12/17 [Trelegy Ellipta 100-62.5-25] Furosemide [Lasix] 40 mg PO DAILY 12/12/17 12/12/17 Insulin NPH, HUMAN [HumuLIN N] 30 unit SQ QPM 12/12/17 12/12/17 Insulin NPH, HUMAN [HumuLIN N] 50 unit SQ QAM 12/12/17 12/12/17 Insulin Regular Human [HumuLIN R] 0 unit SQ TID PRN 12/12/17 12/12/17 Meloxicam [Mobic] 15 mg PO DAILY 12/12/17 12/12/17 Previous Rx's Medication Instructions Recorded Albuterol Sulfate [Albuterol 2 puff IH Q6HR #1 hfa.aer.ad 06/20/17 Inhaler] Allergies Allergy/AdvReac Type Severity Reaction Status Date / Time No Known Drug Allergies Allergy See Verified 08/20/17 15:01 Comments All systems ED: reviewed and negative except as stated. Review of Systems: As Per HPI Constitutional: Reports: fever, chills. Denies: weakness, weight change, night sweats Eyes: Denies: vision change ENT ED: Denies: ear pain, throat pain, congestion, dysphagia Cardiovascular: Denies: chest pain, palpitations, dyspnea on exertion, orthopnea , edema, syncope Respiratory: Denies: cough, dyspnea, wheezes, hemoptysis, stridor, sputum production Gastrointestinal: Denies: abdominal pain, nausea, vomiting, diarrhea, constipation Genitourinary: Denies: urgency, dysuria, frequency, hematuria, discharge Musculoskeletal: Denies: back pain, neck pain, joint swelling, arthralgia Integumentary: Denies: rash Neurological: Denies: headache, weakness, numbness, paresthesias Hematological/Lymphatic: Denies: easy bleeding, easy bruising Fever PMH - Past Medical History Medical history: Reports: CHF, COPD, diabetes, hyperlipidemia, hypertension Surgical history: Reports: pacemaker/AICD, other Psychiatric history: Reports: depression - Social History Smoking Status: Former smoker Alcohol use: Reports: none Drug use: Reports: none Physical Exam - General Limitations: altered mental status General appearance: alert, obese - Head Head exam: atraumatic, normocephalic, normal inspection - Eye Eye exam: Present: normal appearance, PERRL, EOMI. Absent: scleral icterus, conjunctival injection, nystagmus, periorbital swelling - ENT ENT exam: normal oropharynx, mucous membranes dry - Neck Neck exam: Present: normal inspection, full ROM, trachea midline. Absent: tenderness, meningismus, lymphadenopathy - Chest Chest inspection: Present: normal inspection, symmetric chest wall rise - Respiratory Respiratory exam: Present: normal lung sounds bilaterally. Absent: respiratory distress, wheezes, stridor - Cardiovascular Cardiovascular exam: Present: regular rate, normal rhythm - Abdominal Exam Abdominal exam: Present: soft, Non-Tender. Absent: distention, guarding, rebound, rigidity, mass - Extremities Exam Extremities exam: Present: full ROM, normal capillary refill. Absent: tenderness, pedal edema - Back Exam Back exam: Present: normal inspection. Absent: tenderness - Neurological Exam Neurological exam: Present: alert, oriented X3, CN II-XII intact - Psychiatric Psychiatric exam: Present: normal affect, normal mood - Skin Skin exam: Present: warm, dry, intact, normal color Course Course Narrative: [facility] was [facility] for evaluation of change in mental status and concerns for possible urinary infection. EMS reports that the patient is acting confused and told them that he walked home last night. Patient is confused. He is currently oriented 1. He believes he is currently at [facility] and is unsure what year it is. He does not complain of pain but appears uncomfortable and is intermittently tachypneic. Labs fluids and antipyretics ordered. EMS reported that his fever was 101. Chest x-ray shows CHF. Fluids canceled. Repeat temp is 99.2. BP has been stable in the 109-127 systolic range. Patient has not been tachycardic. EKG is unchanged compared to previous with a sinus rhythm, normal rate, no ST elevation or depression noted. CAT scan of the head was read by radiologist as no acute abnormality. Labs indicate an infectious process with a white count of 14.8, a prevalence of neutrophils, two numerous to count white blood cells in the urine and moderate blood. He also has acute kidney injury. Harper catheter was placed. Patient immediately had 1500 mL's of urine out. No gross hematuria. Patient went to CAT scan and when he returned had put out another [address] of the abdomen and pelvis has been ordered. Case was discussed with Dr. Casey. He has had [id number] time with patient and agrees with the assessment, plan. CT the abdomen and pelvis shows a 1 mm minimally obstructing left distal ureteral stone with mild to moderate [place]. Urology was paged for consult. I spoke with Dr. Concepcion. He states that he will consult on the patient. Case was discussed with the hospitalist. She has accepted the patient for admission. - Reevaluation(s) Reevaluation #1: Patient is feeling better. He is much more conversant. He is a and O 3 now. He is requesting something to eat for lunch. He denies any complaints at this time. Time: 10:00 Fever - Medical Records Medical records reviewed: Yes I reviewed the patient's medical records. Laboratory Last Values WBC 14.8 K/mcL (4.3-11.1) H 12/12/17 07:30 RBC 4.44 M/mcL (4.19-5.50) 12/12/17 07:30 Hgb 11.6 g/dL (12.9-16.9) L 12/12/17 07:30 Hct 35.5 % (37.5-50.1) L 12/12/17 07:30 MCV 80.0 fL (83.0-100.0) L 12/12/17 07:30 MCH 26.1 pg (28.0-33.3) L 12/12/17 07:30 MCHC 32.7 g/dL (31.6-35.5) 12/12/17 07:30 RDW 15.9 % (11.5-14.5) H 12/12/17 07:30 Plt Count 231 K/mcL (140-400) 12/12/17 07:30 MPV 10.5 fL (9.4-12.4) 12/12/17 07:30 Immature Gran % 0.7 % (0-4) 12/12/17 07:30 Seg Neutrophils % 82.1 % 12/12/17 07:30 Lymphocytes % 9.8 % 12/12/17 07:30 Monocytes % 6.9 % 12/12/17 07:30 Eosinophils % 0.1 % 12/12/17 07:30 Basophils % 0.4 % 12/12/17 07:30 Neutrophils # 12.2 K/mcL (1.6-8.9) H 12/12/17 07:30 Lymphocytes # 1.5 K/mcL (0.6-4.6) 12/12/17 07:30 Monocytes # 1.0 K/mcL (0.0-1.3) 12/12/17 07:30 Eosinophils # 0.0 K/mcL (0.0-0.6) 12/12/17 07:30 Basophils # 0.1 K/mcL (0.0-0.2) 12/12/17 07:30 PT 13.2 Seconds (9.4-12.1) H 12/12/17 07:30 INR 1.2 12/12/17 07:30 APTT 32.1 Seconds (26.0-36.0) 12/12/17 07:30 VBG pH 7.41 pH Units (7.32-7.42) 12/12/17 07:46 VBG pCO2 40 mmHg (41-51) L 12/12/17 07:46 VBG pO2 59 mmHg (25-50) H 12/12/17 07:46 VBG HCO3 26 mEq/L (21-27) 12/12/17 07:46 Sodium 135 mEq/L (136-145) L 12/12/17 07:30 Potassium 4.5 mEq/L (3.5-5.1) 12/12/17 07:30 Chloride 100 mEq/L (98-107) 12/12/17 07:30 Carbon Dioxide 27 mEq/L (23-29) 12/12/17 07:30 BUN 29 mg/dL (8-23) H 12/12/17 07:30 Creatinine 1.55 mg/dL (0.70-1.30) H 12/12/17 07:30 Est GFR ( Amer) 55 (> 60) L 12/12/17 07:30 Est GFR (Non-Af Amer) 45 (> 60) L 12/12/17 07:30 BUN/Creatinine Ratio 19 (6-26) 12/12/17 07:30 Glucose 100 mg/dL (70-105) 12/12/17 07:30 Calculated Osmolality 286 (280-300) 12/12/17 07:30 Lactic Acid 1.2 mmol/L (0.5-2.2) 12/12/17 09:14 Calcium 9.5 mg/dL (8.6-10.3) 12/12/17 07:30 Phosphorus 3.8 mg/dL (2.7-4.5) 12/12/17 07:30 Magnesium 2.0 mg/dL (1.6-2.6) 12/12/17 07:30 Total Bilirubin 0.7 mg/dL (0.3-1.0) 12/12/17 07:30 Direct Bilirubin 0.1 mg/dL (0.0-0.2) 12/12/17 07:30 Indirect Bilirubin 0.6 mg/dL (0.0-1.2) 12/12/17 07:30 AST 11 Units/L (13-39) L 12/12/17 07:30 ALT 6 Units/L (7-52) L 12/12/17 07:30 Alkaline Phosphatase 62 Units/L (34-104) 12/12/17 07:30 Troponin I 0.04 ng/mL (< 0.04) H* 12/12/17 07:30 B-Natriuretic Peptide 840 pg/mL (Less than 100) H 12/12/17 07:30 Serum Total Protein 8.0 g/dL (6.4-8.9) 12/12/17 07:30 Albumin 3.5 g/dL (3.5-5.7) 12/12/17 07:30 Globulin 4.5 g/dL (2.4-3.5) H 12/12/17 07:30 Albumin/Globulin Ratio 0.8 (1.1-2.2) L 12/12/17 07:30 Urine Color Yellow (Yellow) 12/12/17 06:25 Urine Clarity Cloudy (Clear) A 12/12/17 06:25 Urine pH 7.0 pH Units (5.0-8.0) 12/12/17 06:25 Ur Specific [place] 1.010 (1.010-1.025) 12/12/17 06:25 Urine Protein Trace mg/dL (Neg-Trace) 12/12/17 06:25 Urine Glucose (UA) Normal mg/dL (Normal) 12/12/17 06:25 Urine Ketones Negative mg/dL (Negative) 12/12/17 06:25 Urine Blood Small (Negative) H 12/12/17 06:25 Urine Nitrite Negative (Negative) 12/12/17 06:25 Urine Bilirubin Negative (Negative) 12/12/17 06:25 Urine Urobilinogen Normal mg/dL (Normal) 12/12/17 06:25 Ur Leukocyte Esterase Moderate (Negative) H 12/12/17 06:25 Urine Microscopic RBC 15-30 per hpf (0-3) H 12/12/17 06:25 Urine Microscopic WBC TNTC per hpf (0-3) H 12/12/17 06:25 Ur Squamous Epith Cells None Seen per lpf (None-Few) 12/12/17 06:25 Urine Bacteria None Seen per hpf (None-Few) 12/12/17 06:25 Hyaline Casts None Seen per lpf (None-Few) 12/12/17 06:25 Ur Culture Indicated? YES (NO) A 12/12/17 06:25 Specimen Rejected Accident 12/12/17 07:30 - Lab Data Lab results reviewed: Yes I reviewed the patient's lab results. Lab Results 12/12/17 Range/Units 06:25 Urine Color Yellow (Yellow) Urine Clarity Cloudy A (Clear) Urine pH 7.0 (5.0-8.0) pH Units Ur Specific [place] 1.010 (1.010-1.025) Urine Protein Trace (Neg-Trace) mg/dL Urine Glucose (UA) Normal (Normal) mg/dL Urine Ketones Negative (Negative) mg/dL Urine Blood Small H (Negative) Urine Nitrite Negative (Negative) Urine Bilirubin Negative (Negative) Urine Urobilinogen Normal (Normal) mg/dL Ur Leukocyte Esterase Moderate H (Negative) Urine Microscopic RBC 15-30 H (0-3) per hpf Urine Microscopic WBC TNTC H (0-3) per hpf Ur Squamous Epith Cells None Seen (None-Few) per lpf Urine Bacteria None Seen (None-Few) per hpf Hyaline Casts None Seen (None-Few) per lpf Ur Culture Indicated? YES A (NO) - Radiology Data Radiology results reviewed: Yes I reviewed the patient's radiology results. Chest X-Ray 12/12/17 06:29 IMPRESSION: Pacemaker. Cardiomegaly with vascular congestion and small pleural effusions. Findings suggestive of CHF. Follow up to resolution is suggested. D/ / 12/12/2017 07:25:02 Samaria Ballesteros MD / julien Interpreting Provider: Samaria Ballesteros MD Head CT 12/12/17 07:06 IMPRESSION: No acute intracranial abnormality. D/ / Serge Noble MD / Serge Noble MD Interpreting Provider: Serge Noble MD Abdomen/Pelvis CT 12/12/17 09:01 IMPRESSION: Mildly obstructing 1 mm distal right ureteral calculus. D/ / Serge Noble MD / Serge Noble MD Interpreting Provider: Serge Noble MD - EKG Data EKG attestation: Yes I reviewed and interpreted this EKG. EKG shows normal: sinus rhythm Rate: normal Rhythm: NSR Q waves: II, III When compared to previous EKG there are: no significant changes Interpretation: nonspecific ST-T wave changes
[2017-12-12 06:42] LABS: Bacteria,Urine None Seen per hpf (None-Few); Hyaline Casts,Urine None Seen per lpf (None-Few); RBC,Urine 15-30 per hpf (0-3); Squamous Epithelial Cell,Urine None Seen per lpf (None-Few); WBC,Urine TNTC per hpf (0-3)
[2017-12-12 07:51] LABS: VBG HCO3 26 mEq/L (21-27); VBG PCO2 40 mmHg (41-51); VBG PH 7.41 pH Units (7.32-7.42); VBG PO2 59 mmHg (25-50)
[2017-12-12] MEDS ORDERED: Levofloxacin 750 MG/150 ML 750 MG/150 ML BAG IVPB ONE (07:55)
[2017-12-12] MEDS ORDERED: Furosemide 40 MG/4 ML VIAL IVP ONE (07:55)
[2017-12-12 08:01] LABS: INR 1.2; Prothrombin Time 13.2 Seconds (9.4-12.1)
[2017-12-12 08:03] LABS: Activated Partial Thrombo Time 32.1 Seconds (26.0-36.0)
[2017-12-12 08:10] LABS: Albumin 3.5 g/dL (3.5-5.7); Albumin/Globulin Ratio 0.8 (1.1-2.2); Bilirubin,Direct 0.1 mg/dL (0.0-0.2); Bilirubin,Indirect 0.6 mg/dL (0.0-1.2); Bilirubin,Total 0.7 mg/dL (0.3-1.0); Calcium 9.5 mg/dL (8.6-10.3); Globulin 4.5 g/dL (2.4-3.5); Phosphorous 3.8 mg/dL (2.7-4.5); Potassium 4.5 mEq/L (3.5-5.1)
[2017-12-12 08:14] LABS: Troponin I 0.04 ng/mL (< 0.04)
[2017-12-12 08:25] LABS: Basophils # 0.1 K/mcL (0.0-0.2); Basophils % 0.4 %; Eosinophils % 0.1 %; Hematocrit 35.5 % (37.5-50.1); Hemoglobin 11.6 g/dL (12.9-16.9); Immature Granulocytes % 0.7 % (0-4); Lymphocytes # 1.5 K/mcL (0.6-4.6); Lymphocytes % 9.8 %; Mean Corpuscular HGB Conc 32.7 g/dL (31.6-35.5); Mean Corpuscular Hemoglobin 26.1 pg (28.0-33.3); Mean Platelet Volume 10.5 fL (9.4-12.4); Monocytes % 6.9 %; Neutrophils # 12.2 K/mcL (1.6-8.9); Platelet Count 231 K/mcL (140-400); Red Blood Count 4.44 M/mcL (4.19-5.50); Red Cell Distribution Width 15.9 % (11.5-14.5); Segmented Neutrophils % 82.1 %
[2017-12-12] MEDS ORDERED: Aspirin 81 MG TAB.CHEW PO STA (08:30)
[2017-12-12] MEDS ORDERED: cefTRIAXone 2,000 MG in 0.9 % Sodium Chloride Mini Bag 100 ML IVPB ONE (09:04)
--- NOTE | 2017-12-12 09:11 | Emergency Department Note ---
Disposition Clinical Impression: Ureterolithiasis, Mental status change, Fever, Pyuria, Elevated troponin, Urinary retention CHF (congestive heart failure) Qualifiers: Heart failure type: diastolic Heart failure chronicity: acute on chronic Qualified Code(s): I50.33 - Acute on chronic diastolic (congestive) heart failure Disposition: Admitted As Inpatient Condition: Fair Time of Disposition: 12:00 General Adult HPI - General Chief complaint: ED Altered Mental Status Stated complaint: "sick" Time Seen by Provider: 12/12/17 06:20 Source: patient, EMS, other (long-term report) Mode of arrival: EMS Limitations: altered mental status - History of Present Illness Pain Scale: 0 - Related Data Home Medications Medication Instructions Recorded Confirmed Aspirin [Lo-Dose Aspirin EC] 81 mg PO DAILY 12/10/16 12/12/17 Gabapentin [Neurontin] 300 mg PO BID 12/10/16 12/12/17 Sertraline [Zoloft] 100 mg PO DAILY 12/10/16 12/12/17 Lovastatin 10 mg PO HS 04/07/17 12/12/17 Ipratropium/Albuterol Neb [Duoneb] 3 ml IH Q6HR 08/09/17 12/12/17 traZODone [TraZODone] 50 mg PO HS 08/09/17 12/12/17 Acetaminophen [Tylenol] 650 mg PO Q4HR PRN 10/04/17 12/12/17 Carvedilol 12.5 mg PO BID 10/04/17 12/12/17 Diclofenac Sodium [Voltaren] 1 appl TP BID 10/04/17 12/12/17 Glucagon,Human Recombinant 1 mg IJ NOW PRN 10/04/17 12/12/17 [Glucagen] Phenol [Chloraseptic] 1 spr MM Q2H PRN 10/04/17 12/12/17 Fluticasone Propionate Nasal 2 spr NS DAILY 12/12/17 12/12/17 [Flonase] Fluticasone/Umeclidin/Vilanter 1 puff IH DAILY 12/12/17 12/12/17 [Trelegy Ellipta 100-62.5-25] Furosemide [Lasix] 40 mg PO DAILY 12/12/17 12/12/17 Insulin NPH, HUMAN [HumuLIN N] 30 unit SQ QPM 12/12/17 12/12/17 Insulin NPH, HUMAN [HumuLIN N] 50 unit SQ QAM 12/12/17 12/12/17 Insulin Regular Human [HumuLIN R] 0 unit SQ TID PRN 12/12/17 12/12/17 Meloxicam [Mobic] 15 mg PO DAILY 12/12/17 12/12/17 Previous Rx's Medication Instructions Recorded Albuterol Sulfate [Albuterol 2 puff IH Q6HR #1 hfa.aer.ad 06/20/17 Inhaler] Allergies Allergy/AdvReac Type Severity Reaction Status Date / Time No Known Drug Allergies Allergy See Verified 08/20/17 15:01 Comments Past Medical History - Past Medical History Medical history: Reports: CHF, COPD, diabetes, hyperlipidemia, hypertension Surgical history: Reports: pacemaker/AICD, other Psychiatric history: Reports: depression - Social History Smoking Status: Former smoker Smokeless Tobacco Status: No Alcohol use: Reports: none Drug use: Reports: none Physical Exam - General Limitations: altered mental status General appearance: in no apparent distress Course Vital Signs Temperature 99.5 F 12/12/17 07:31 Pulse Rate 98 12/12/17 07:31 Respiratory Rate 24 12/12/17 07:31 Blood Pressure 125/66 12/12/17 07:31 O2 Sat by Pulse Oximetry 95 12/12/17 07:31 Temperature 98.9 F 12/12/17 14:54 Pulse Rate 77 12/12/17 14:54 Respiratory Rate 18 12/12/17 15:45 Blood Pressure 118/59 12/12/17 14:54 O2 Sat by Pulse Oximetry 98 12/12/17 15:45 Oxygen Delivery Oxygen Delivery Nasal Cannula Medical Decision Making - Lab Data Result diagrams: 12/12/17 07:30 12/12/17 07:30 Lab Results 12/12/17 12/12/17 12/12/17 Range/Units 06:25 07:16 07:30 WBC 14.8 H (4.3-11.1) K/mcL RBC 4.44 (4.19-5.50) M/mcL Hgb 11.6 L (12.9-16.9) g/dL Hct 35.5 L (37.5-50.1) % MCV 80.0 L (83.0-100.0) fL MCH 26.1 L (28.0-33.3) pg MCHC 32.7 (31.6-35.5) g/dL RDW 15.9 H (11.5-14.5) % Plt Count 231 (140-400) K/mcL MPV 10.5 (9.4-12.4) fL Immature Gran % 0.7 (0-4) % Seg Neutrophils % 82.1 % Lymphocytes % 9.8 % Monocytes % 6.9 % Eosinophils % 0.1 % Basophils % 0.4 % Neutrophils # 12.2 H (1.6-8.9) K/mcL Lymphocytes # 1.5 (0.6-4.6) K/mcL Monocytes # 1.0 (0.0-1.3) K/mcL Eosinophils # 0.0 (0.0-0.6) K/mcL Basophils # 0.1 (0.0-0.2) K/mcL PT (9.4-12.1) Seconds INR APTT (26.0-36.0) Seconds VBG pH (7.32-7.42) pH Units VBG pCO2 (41-51) mmHg VBG pO2 (25-50) mmHg VBG HCO3 (21-27) mEq/L Sodium (136-145) mEq/L Potassium (3.5-5.1) mEq/L Chloride (98-107) mEq/L Carbon Dioxide (23-29) mEq/L BUN (8-23) mg/dL Creatinine (0.70-1.30) mg/dL Est GFR ( Amer) (> 60) Est GFR (Non-Af Amer) (> 60) BUN/Creatinine Ratio (6-26) Glucose (70-105) mg/dL POC Glucose 96 (70-99) mg/dL Calculated Osmolality (280-300) Lactic Acid (0.5-2.2) mmol/L Calcium (8.6-10.3) mg/dL Phosphorus (2.7-4.5) mg/dL Magnesium (1.6-2.6) mg/dL Total Bilirubin (0.3-1.0) mg/dL Direct Bilirubin (0.0-0.2) mg/dL Indirect Bilirubin (0.0-1.2) mg/dL AST (13-39) Units/L ALT (7-52) Units/L Alkaline Phosphatase (34-104) Units/L Troponin I (< 0.04) ng/mL B-Natriuretic Peptide (Less than 100) pg/mL Serum Total Protein (6.4-8.9) g/dL Albumin (3.5-5.7) g/dL Globulin (2.4-3.5) g/dL Albumin/Globulin Ratio (1.1-2.2) Urine Color Yellow (Yellow) Urine Clarity Cloudy A (Clear) Urine pH 7.0 (5.0-8.0) pH Units Ur Specific [place] 1.010 (1.010-1.025) Urine Protein Trace (Neg-Trace) mg/dL Urine Glucose (UA) Normal (Normal) mg/dL Urine Ketones Negative (Negative) mg/dL Urine Blood Small H (Negative) Urine Nitrite Negative (Negative) Urine Bilirubin Negative (Negative) Urine Urobilinogen Normal (Normal) mg/dL Ur Leukocyte Esterase Moderate H (Negative) Urine Microscopic RBC 15-30 H (0-3) per hpf Urine Microscopic WBC TNTC H (0-3) per hpf Ur Squamous Epith Cells None Seen (None-Few) per lpf Urine Bacteria None Seen (None-Few) per hpf Hyaline Casts None Seen (None-Few) per lpf Ur Culture Indicated? YES A (NO) Specimen Rejected 12/12/17 12/12/17 12/12/17 Range/Units 07:30 07:30 07:30 WBC (4.3-11.1) K/mcL RBC (4.19-5.50) M/mcL Hgb (12.9-16.9) g/dL Hct (37.5-50.1) % MCV (83.0-100.0) fL MCH (28.0-33.3) pg MCHC (31.6-35.5) g/dL RDW (11.5-14.5) % Plt Count (140-400) K/mcL MPV (9.4-12.4) fL Immature Gran % (0-4) % Seg Neutrophils % % Lymphocytes % % Monocytes % % Eosinophils % % Basophils % % Neutrophils # (1.6-8.9) K/mcL Lymphocytes # (0.6-4.6) K/mcL Monocytes # (0.0-1.3) K/mcL Eosinophils # (0.0-0.6) K/mcL Basophils # (0.0-0.2) K/mcL PT 13.2 H (9.4-12.1) Seconds INR 1.2 APTT 32.1 (26.0-36.0) Seconds VBG pH (7.32-7.42) pH Units VBG pCO2 (41-51) mmHg VBG pO2 (25-50) mmHg VBG HCO3 (21-27) mEq/L Sodium 135 L (136-145) mEq/L Potassium 4.5 (3.5-5.1) mEq/L Chloride 100 (98-107) mEq/L Carbon Dioxide 27 (23-29) mEq/L BUN 29 H (8-23) mg/dL Creatinine 1.55 H (0.70-1.30) mg/dL Est GFR ( Amer) 55 L (> 60) Est GFR (Non-Af Amer) 45 L (> 60) BUN/Creatinine Ratio 19 (6-26) Glucose 100 (70-105) mg/dL POC Glucose (70-99) mg/dL Calculated Osmolality 286 (280-300) Lactic Acid (0.5-2.2) mmol/L Calcium 9.5 (8.6-10.3) mg/dL Phosphorus 3.8 (2.7-4.5) mg/dL Magnesium 2.0 (1.6-2.6) mg/dL Total Bilirubin 0.7 (0.3-1.0) mg/dL Direct Bilirubin 0.1 (0.0-0.2) mg/dL Indirect Bilirubin 0.6 (0.0-1.2) mg/dL AST 11 L (13-39) Units/L ALT 6 L (7-52) Units/L Alkaline Phosphatase 62 (34-104) Units/L Troponin I 0.04 H* (< 0.04) ng/mL B-Natriuretic Peptide 840 H (Less than 100) pg/mL Serum Total Protein 8.0 (6.4-8.9) g/dL Albumin 3.5 (3.5-5.7) g/dL Globulin 4.5 H (2.4-3.5) g/dL Albumin/Globulin Ratio 0.8 L (1.1-2.2) Urine Color (Yellow) Urine Clarity (Clear) Urine pH (5.0-8.0) pH Units Ur Specific [place] (1.010-1.025) Urine Protein (Neg-Trace) mg/dL Urine Glucose (UA) (Normal) mg/dL Urine Ketones (Negative) mg/dL Urine Blood (Negative) Urine Nitrite (Negative) Urine Bilirubin (Negative) Urine Urobilinogen (Normal) mg/dL Ur Leukocyte Esterase (Negative) Urine Microscopic RBC (0-3) per hpf Urine Microscopic WBC (0-3) per hpf Ur Squamous Epith Cells (None-Few) per lpf Urine Bacteria (None-Few) per hpf Hyaline Casts (None-Few) per lpf Ur Culture Indicated? (NO) Specimen Rejected 12/12/17 12/12/17 12/12/17 Range/Units 07:30 07:46 09:14 WBC (4.3-11.1) K/mcL RBC (4.19-5.50) M/mcL Hgb (12.9-16.9) g/dL Hct (37.5-50.1) % MCV (83.0-100.0) fL MCH (28.0-33.3) pg MCHC (31.6-35.5) g/dL RDW (11.5-14.5) % Plt Count (140-400) K/mcL MPV (9.4-12.4) fL Immature Gran % (0-4) % Seg Neutrophils % % Lymphocytes % % Monocytes % % Eosinophils % % Basophils % % Neutrophils # (1.6-8.9) K/mcL Lymphocytes # (0.6-4.6) K/mcL Monocytes # (0.0-1.3) K/mcL Eosinophils # (0.0-0.6) K/mcL Basophils # (0.0-0.2) K/mcL PT (9.4-12.1) Seconds INR APTT (26.0-36.0) Seconds VBG pH 7.41 (7.32-7.42) pH Units VBG pCO2 40 L (41-51) mmHg VBG pO2 59 H (25-50) mmHg VBG HCO3 26 (21-27) mEq/L Sodium (136-145) mEq/L Potassium (3.5-5.1) mEq/L Chloride (98-107) mEq/L Carbon Dioxide (23-29) mEq/L BUN (8-23) mg/dL Creatinine (0.70-1.30) mg/dL Est GFR ( Amer) (> 60) Est GFR (Non-Af Amer) (> 60) BUN/Creatinine Ratio (6-26) Glucose (70-105) mg/dL POC Glucose (70-99) mg/dL Calculated Osmolality (280-300) Lactic Acid 1.2 (0.5-2.2) mmol/L Calcium (8.6-10.3) mg/dL Phosphorus (2.7-4.5) mg/dL Magnesium (1.6-2.6) mg/dL Total Bilirubin (0.3-1.0) mg/dL Direct Bilirubin (0.0-0.2) mg/dL Indirect Bilirubin (0.0-1.2) mg/dL AST (13-39) Units/L ALT (7-52) Units/L Alkaline Phosphatase (34-104) Units/L Troponin I (< 0.04) ng/mL B-Natriuretic Peptide (Less than 100) pg/mL Serum Total Protein (6.4-8.9) g/dL Albumin (3.5-5.7) g/dL Globulin (2.4-3.5) g/dL Albumin/Globulin Ratio (1.1-2.2) Urine Color (Yellow) Urine Clarity (Clear) Urine pH (5.0-8.0) pH Units Ur Specific [place] (1.010-1.025) Urine Protein (Neg-Trace) mg/dL Urine Glucose (UA) (Normal) mg/dL Urine Ketones (Negative) mg/dL Urine Blood (Negative) Urine Nitrite (Negative) Urine Bilirubin (Negative) Urine Urobilinogen (Normal) mg/dL Ur Leukocyte Esterase (Negative) Urine Microscopic RBC (0-3) per hpf Urine Microscopic WBC (0-3) per hpf Ur Squamous Epith Cells (None-Few) per lpf Urine Bacteria (None-Few) per hpf Hyaline Casts (None-Few) per lpf Ur Culture Indicated? (NO) Specimen Rejected Accident Attestation Statement - Attestation Attestation: Suraj West DO have provided [id number] time during the care of this patient. Detailed review the presentation, symptoms, medical history were discussed and reviewed with the mid-level provider Viviane Pitt PA-C/[employer]. Medical intervention labs and imaging studies were reviewed in detail. See full documentation of physical exam and course of care in the mid-level provider 's note. I agree with the determined course of care, medical intervention and disposition put forth by the mid-level provider. See below documentation for changes or alterations in documentation. 67-year-old male presents from extended care facility for evaluation of fever intermittent confusion and concern for infectious etiology causing sepsis. Patient is at the extended care facility for chronic medical issues. On presentation here the patient's vital signs appear to be stable except for tachypnea and a borderline fever. He said that his temperature was up to 103 at the nursing facility. He has a history of urinary tract infections. Patient denies any chest pain, nausea, vomiting, diarrhea. Denies any headache vision changes. Denies any chills at this time. Patient on physical exam is a morbidly obese gentleman. His pulse ox is normal target is normal. EKG shows sinus rhythm with no acute signs of ST segment elevation or abnormality. No acute signs of ST segment changes are concerning for ischemia at this point. I was asked to see the patient conjunction with the mid-level provider. Chest x- ray CT of the had labs for sepsis evaluation as well as first dose of antibiotics covering either urinary tract infection versus pneumonia were started here in the emergency room. Patient had urinalysis sent as well along with Harper catheter placement is disposition. Chest x-ray was concerning for congestive heart failure. CT the head is unremarkable. CT the abdomen will be added on for thoroughness secondary to the blood in the urine which is mostly secondary to catheter looking for other potential infectious etiology. Influenza swab was also ordered. Patient's troponin is slightly elevated as well as his kidney function being increased today from normal creatinine of 0.6 up to 1.55 today show any acute kidney insufficiency. Patient did not get Lasix here in the emergency room and was not provided with fluid boluses. He will have fluid restriction at this time and reevaluation of the renal insufficiency. Patient will require admission for definitive management. Antibiotics as well as resuscitative measures were ordered. Patient does not have an acute infectious etiology noted this point considering the chest x-ray does not show any acute signs of consolidation the urine does have blood in it with no bacteria. Antibiotics were already ordered lactic acid is pending. Disposition will be admission. See detailed documentation of the physical exam , medical intervention, medical decision-making and disposition in the mid- level provider's note. No critical care applied to the patient's treatment course at this time. Patient was admitted to the hospital for definitive management. Antibiotics and evaluation had been completed here. No other acute etiology noted at this point. Patient otherwise is concern for volume overload and acute kidney insufficiency causing congestive heart failure exacerbation. Admission process to be completed and established at this time.
[2017-12-12] MEDS ORDERED: Naloxone 0.4 MG/ML INJ IVP PRN (11:31)
[2017-12-12] MEDS ORDERED: Dextrose Gel 15 GM/37.5 ML TUBE PO PRN ×2 (11:33)
[2017-12-12] MEDS ORDERED: *HR* Dextrose 50 % in Water (Syg) 50 ML SYRINGE IVP PRN (11:33)
[2017-12-12] MEDS ORDERED: D5% in Water 1,000 ML IVC PRN (11:33)
[2017-12-12] MEDS ORDERED: Chloraseptic Spray 177 ML BOTTLE MM PRN (11:39)
[2017-12-12] MEDS ORDERED: Acetaminophen 325 MG TABLET PO PRN (11:39)
[2017-12-12] MEDS ORDERED: NON-FORMULARY MEDICATION 1 EACH EACH (Glucagon,Human Recombinant [Glucagen] 1 MG) IJ PRN (11:39)
--- NOTE | 2017-12-12 11:50 | Internal Med History&Physical ---
Date of Encounter: 12/12/17 Time of Encounter: 11:20 Internal Medicine - H&P: HPI Chief complaint: change in mental status Admitted From: Long-term Nursing Facility Plans for Post Hospital Care: Transfer Shelter Facility History of present illness: Mr. Wright is a 67 year old male with PMH of COPD on LTOT, CHF, DM, HTN, HLD, morbid obesity who was sent to the ER from [facility] for evaluation of change in mental status and fever. As per DC records, pt was reported to have Tmax of 103, however he has had a low grade fever since his hospitalization. Upon arrival to the ER, he was noted to be confused. ER workup reported UTI, elevated TNI, JENN, and ureteral stone. A ocasio cath was placed in the ER with removal of 2L of fluid. Pt's mental status improved through his course in the ER. During my evaluation, he is AAOX 3. Reports of having high fevers at the DC , states he is not able to ambulate much and has been at [facility] since July trying to get physical therapy. He denies any headache, chest pain, sob , abd pain, n/v, fever, or chills at this time. Of note, pt initially was started on Levofloxacin in the ER, however was noted to have erythema and irritation soon after initiation of abx due to which levofloxacin administration was stopped. Pt was then started on Ceftriaxone, which the patient tolerated appropriately. Past Med Surg Social Fam HX - Past Medical History Medical history: CHF, COPD, diabetes, hyperlipidemia, hypertension Psychiatric history: depression - Past Surgical History Surgical History: pacemaker/AICD, other - Social History Smoking Status: Former smoker Smokeless Tobacco Status: No Alcohol use: none Drug use: none - Family History Mother Living Status: Hx Family Cancer: Yes (brain tumor) Father Living Status: Hx Family Respiratory Disorders: Yes (COPD) Hx Family Endocrine Disorder: Yes (DM) Internal Medicine - H&P: Meds Aspirin [Lo-Dose Aspirin EC] 81 mg PO DAILY 12/10/16 [History] Gabapentin [Neurontin] 300 mg PO BID 12/10/16 [History] Sertraline [Zoloft] 100 mg PO DAILY 12/10/16 [History] Lovastatin 10 mg PO HS 04/07/17 [History] Albuterol Sulfate [Albuterol Inhaler] 2 puff IH Q6HR #1 hfa.aer.ad 06/20/17 [Rx] Ipratropium/Albuterol Neb [Duoneb] 3 ml IH Q6HR 08/09/17 [History] traZODone [TraZODone] 50 mg PO HS 08/09/17 [History] Acetaminophen [Tylenol] 650 mg PO Q4HR PRN 10/04/17 [History] Carvedilol 12.5 mg PO BID 10/04/17 [History] Diclofenac Sodium [Voltaren] 1 appl TP BID 10/04/17 [History] Glucagon,Human Recombinant [Glucagen] 1 mg IJ NOW PRN 10/04/17 [History] Phenol [Chloraseptic] 1 spr MM Q2H PRN 10/04/17 [History] Fluticasone Propionate Nasal [Flonase] 2 spr NS DAILY 12/12/17 [History] Fluticasone/Umeclidin/Vilanter [Trelegy Ellipta 100-62.5-25] 1 puff IH DAILY [History] Furosemide [Lasix] 40 mg PO DAILY 12/12/17 [History] Insulin NPH, HUMAN [HumuLIN N] 30 unit SQ QPM 12/12/17 [History] Insulin NPH, HUMAN [HumuLIN N] 50 unit SQ QAM 12/12/17 [History] Insulin Regular Human [HumuLIN R] 0 unit SQ TID PRN 12/12/17 [History] Meloxicam [Mobic] 15 mg PO DAILY 12/12/17 [History] 3 Allergy/AdvReac Type Severity Reaction Status Date / Time No Known Drug Allergies Allergy See Verified 08/20/17 15:01 Comments All Systems PM: A 10-system review of systems was performed and is negative for pertinent findings except as documented above in the HPI. - Constitutional Constitutional: as per HPI - Constitutional Vitals: Temp Pulse Resp BP Pulse Ox 99.5 F 98 24 125/66 95 12/12/17 07:31 12/12/17 07:31 12/12/17 07:31 12/12/17 07:31 12/12/17 07:31 General appearance: Present: A&O X 3, morbidly obese, no acute distress - Head Head exam: Present: atraumatic, normocephalic - Eye Eye exam: Present: EOMI, nystagmus - Respiratory Respiratory exam: Present: decreased breath sounds. Absent: respiratory distress, wheezes (equal air entry bilaterally) - Cardiovascular Cardiovascular exam: Present: RRR, +S1, +S2 - GI/Abdominal GI/Abdominal exam: Present: normal bowel sounds, soft. Absent: tenderness - Extremities Exam Extremities exam: Present: warm, radial pulses palpable and symmetrical. Absent : calf tenderness, pedal edema - Neurological Exam Neurological exam: Present: oriented X3 Internal Med - H&P Results - Labs CBC & Chem 7: 12/12/17 07:30 12/12/17 07:30 - Assessment and plan (1) Sepsis Current Visit: Yes Status: Acute Assessment and plan: Likely secondary to UTI pt noted of having urosepsis in Jul 2017 with urine culture positive for pereira sensitive pseudomonas Continue IV abx (Ceftriaxone) f/u urine cultures tylenol prn fever Qualifiers: Sepsis type: sepsis due to unspecified organism Qualified Code(s): A41.9 - Sepsis, unspecified organism (2) UTI (urinary tract infection) Current Visit: No Status: Acute Assessment and plan: as listed above Qualifiers: Urinary tract infection type: acute cystitis Hematuria presence: without hematuria Qualified Code(s): N30.00 - Acute cystitis without hematuria (3) JENN (acute kidney injury) Current Visit: Yes Status: Acute Assessment and plan: likely post obstructive abd/pelvis ct reported 1mm mildly obstructive ureteral stone pt reported to have 2L urine output upon ocasio insertion holding home dose of diclofenac, lasix avoid all nephrotoxic agents continue to closely monitor renal function (4) Ureteral stone Current Visit: Yes Status: Acute Assessment and plan: CT findings reported 1mm mildly obstructing right ureteral calculus urology evaluation requested by ER physician continue supportive care (5) COPD (chronic obstructive pulmonary disease) Current Visit: No Status: Chronic Assessment and plan: no signs of acute exacerbation baseline home O2: 2L continue home meds and O2 supplementation Qualifiers: COPD type: unspecified COPD Qualified Code(s): J44.9 - Chronic obstructive pulmonary disease, unspecified (6) Elevated troponin Current Visit: No Status: Acute Assessment and plan: Likely demand ischemia in the setting of sepsis and JENN pt denies any chest pain will trend serial TNI (7) Hypertension Current Visit: No Status: Chronic Assessment and plan: BP within acceptable range continue home meds Qualifiers: Hypertension type: essential hypertension Qualified Code(s): I10 - Essential (primary) hypertension (8) CHF (congestive heart failure) Current Visit: No Status: Chronic Assessment and plan: appears to be euvolemic at this time will hold today's (12/12/17) dose of lasix given renal dysfunction closely monitor for signs of volume overload resume lasix in am if renal function permits fluid restriction diet Qualifiers: Heart failure type: diastolic Heart failure chronicity: acute on chronic Qualified Code(s): I50.33 - Acute on chronic diastolic (congestive) heart failure (9) Diabetes Current Visit: No Status: Chronic Assessment and plan: continue home insulin dosage sliding scale insulin as needed monitor fingerstick and blood glucose ADA diet Qualifiers: Diabetes mellitus type: type 2 Diabetes mellitus senior care insulin use: with senior care use Diabetes mellitus complication status: with hyperglycemia Qualified Code(s): E11.65 - Type 2 diabetes mellitus with hyperglycemia; Z79.4 - penitentiary (current) use of insulin; Z79.4 - salvage determiner (current) use of insulin; Z79.4 - salvage determiner (current) use of insulin; Z79.4 - penitentiary (current ) use of insulin (10) Morbid obesity with BMI of 40.0-44.9, adult Current Visit: Yes Status: Acute (11) DVT prophylaxis Current Visit: No Status: Acute Assessment and plan: heparin SQ - Time Spent With Patient Total time spent is greater than 50% in coordination of care (as documented) at patient's floor/unit and/or counseling patient:
[2017-12-12 15:12] LABS: Adenovirus Not Detected (Not Detect); Bordetella Pertussis Not Detected (Not Detect); Chlamydophila pneumoniae Not Detected (Not Detect); Coronavirus 229E Not Detected (Not Detect); Coronavirus HKU1 Not Detected (Not Detect); Coronavirus NL63 Not Detected (Not Detect); Coronavirus OC43 Not Detected (Not Detect); Human Metapneumovirus Not Detected (Not Detect); Human Rhinovirus/Enterovirus Not Detected (Not Detect); Influenza A Subtype 2009 H1 Not Detected (Not Detect); Influenza A Untypeable Not Detected (Not Detect); Influenza B Not Detected (Not Detect); Mycoplasma pneumoniae Not Detected (Not Detect); Parainfluenza Virus 1 Not Detected (Not Detect); Parainfluenza Virus 2 Not Detected (Not Detect); Parainfluenza Virus 3 Not Detected (Not Detect); Parainfluenza Virus 4 Not Detected (Not Detect); Respiratory Syncytial Virus Not Detected (Not Detect)
--- NOTE | 2017-12-12 15:23 | Urology - Consult Note ---
Date of Encounter: 12/12/17 Time of Encounter: 15:21 - Assessment and Plan (1) Urinary retention Current Visit: Yes Status: Acute Assessment and plan: Unsure of cause of patient's urinary retention. Patient is a poorly controlled diabetic. We will need to continue with catheter drainage at this time. (2) JENN (acute kidney injury) Current Visit: Yes Status: Acute Assessment and plan: Patient was slightly increased serum creatinine to 1.55. We will continue to watch closely with daily blood work. (3) Sepsis Current Visit: Yes Status: Acute Assessment and plan: Patient with likely urinary source for sepsis secondary to history of recurrent UTIs as well as large amount of urine within bladder. Continue with broad- spectrum antibiotics until urine culture returned. Qualifiers: Sepsis type: sepsis due to unspecified organism Qualified Code(s): A41.9 - Sepsis, unspecified organism (4) Ureteral stone Current Visit: Yes Status: Acute Assessment and plan: The stone does not appear to be obstructing at this time. It is approximate 1- 2 mm in size. Patient stable and overall condition improving. No urgent need for ureteral stent placement at this time. Urology CN:HPI Consult date: 12/12/17 Reason for consult Urology: Other (uti with fever) Requesting physician: Erin Garcia History of present illness: Angel is a 67-year-old male with a history of multiple medical comorbidities who is admitted to the hospital secondary to acute mental status changes as well as fever. Patient has had multiple admissions to the hospital in the past 5 months. He was found to have a Pseudomonas UTI back in July. Upon arrival to the hospital patient was found to be in urinary retention and a catheter was placed with approximately 2 L of urine drained from the patient's bladder. He subsequently had a CT scan which is very poor quality secondary to patient motion artifact. There appears to be a mid distal ureteral 1 mm stone on the right side. Upon personal review of the CT scan the stone is within a dilated ureter and the ureter is dilated both proximal and distal to the stone. Patient denies any flank pain at this time. No current nausea or vomiting. Past Med Surg Social Fam HX - Past Medical History Medical history: CHF, COPD, diabetes, hyperlipidemia, hypertension, pulmonary embolus Psychiatric history: depression - Past Surgical History Surgical History: pacemaker/AICD, other - Social History Smoking Status: Former smoker Smokeless Tobacco Status: No Alcohol use: none Drug use: none - Family History Mother Living Status: Hx Family Cancer: Yes (brain tumor) Father Living Status: Hx Family Respiratory Disorders: Yes (COPD) Hx Family Endocrine Disorder: Yes (DM) Medications and Allergies Aspirin [Lo-Dose Aspirin EC] 81 mg PO DAILY 12/10/16 [History] Gabapentin [Neurontin] 300 mg PO BID 12/10/16 [History] Sertraline [Zoloft] 100 mg PO DAILY 12/10/16 [History] Lovastatin 10 mg PO HS 04/07/17 [History] Albuterol Sulfate [Albuterol Inhaler] 2 puff IH Q6HR #1 hfa.aer.ad 06/20/17 [Rx] Ipratropium/Albuterol Neb [Duoneb] 3 ml IH Q6HR 08/09/17 [History] traZODone [TraZODone] 50 mg PO HS 08/09/17 [History] Acetaminophen [Tylenol] 650 mg PO Q4HR PRN 10/04/17 [History] Carvedilol 12.5 mg PO BID 10/04/17 [History] Diclofenac Sodium [Voltaren] 1 appl TP BID 10/04/17 [History] Glucagon,Human Recombinant [Glucagen] 1 mg IJ NOW PRN 10/04/17 [History] Phenol [Chloraseptic] 1 spr MM Q2H PRN 10/04/17 [History] Fluticasone Propionate Nasal [Flonase] 2 spr NS DAILY 12/12/17 [History] Fluticasone/Umeclidin/Vilanter [Trelegy Ellipta 100-62.5-25] 1 puff IH DAILY [History] Furosemide [Lasix] 40 mg PO DAILY 12/12/17 [History] Insulin NPH, HUMAN [HumuLIN N] 30 unit SQ QPM 12/12/17 [History] Insulin NPH, HUMAN [HumuLIN N] 50 unit SQ QAM 12/12/17 [History] Insulin Regular Human [HumuLIN R] 0 unit SQ TID PRN 12/12/17 [History] Meloxicam [Mobic] 15 mg PO DAILY 12/12/17 [History] 3 Allergy/AdvReac Type Severity Reaction Status Date / Time No Known Drug Allergies Allergy See Verified 08/20/17 15:01 Comments Review of Systems ROS unobtainable: due to mental status Exam Initial Vital Signs Temp Pulse Resp BP Pulse Ox 99.5 F 98 24 125/66 95 12/12/17 07:31 12/12/17 07:31 12/12/17 07:31 12/12/17 07:31 12/12/17 07:31 General/Neuological: alert and oriented x 3 Eyes: normal pupils, non-icteric Neck: no lymphadenopathy noted, supple to touch Cardiovascular: Tachycardic rate regular rhythm, no murmurs, no JVD on exam Respiratory: normal respiratory effort, clear bilaterally ABD: Morbidly obese soft, nontender, no masses palpated, good bowel sounds Back: no pain on percussion bilaterally : normal phallus, normal scrotum, testicles and epididymides normal, urethral meatus normal. With catheter exiting meatus with clear urine Skin: no rashes noted Musculoskeletal: normal gait, FROMx4 Urology Results - Labs 12/12/17 07:30 12/12/17 07:30 Abnormal lab results WBC 14.8 K/mcL (4.3-11.1) H 12/12/17 07:30 Hgb 11.6 g/dL (12.9-16.9) L 12/12/17 07:30 Hct 35.5 % (37.5-50.1) L 12/12/17 07:30 MCV 80.0 fL (83.0-100.0) L 12/12/17 07:30 MCH 26.1 pg (28.0-33.3) L 12/12/17 07:30 RDW 15.9 % (11.5-14.5) H 12/12/17 07:30 Neutrophils # 12.2 K/mcL (1.6-8.9) H 12/12/17 07:30 PT 13.2 Seconds (9.4-12.1) H 12/12/17 07:30 VBG pCO2 40 mmHg (41-51) L 12/12/17 07:46 VBG pO2 59 mmHg (25-50) H 12/12/17 07:46 Sodium 135 mEq/L (136-145) L 12/12/17 07:30 BUN 29 mg/dL (8-23) H 12/12/17 07:30 Creatinine 1.55 mg/dL (0.70-1.30) H 12/12/17 07:30 Est GFR ( Amer) 55 (> 60) L 12/12/17 07:30 Est GFR (Non-Af Amer) 45 (> 60) L 12/12/17 07:30 AST 11 Units/L (13-39) L 12/12/17 07:30 ALT 6 Units/L (7-52) L 12/12/17 07:30 Troponin I 0.05 ng/mL (< 0.04) H* 12/12/17 13:52 B-Natriuretic Peptide 840 pg/mL (Less than 100) H 12/12/17 07:30 Globulin 4.5 g/dL (2.4-3.5) H 12/12/17 07:30 Albumin/Globulin Ratio 0.8 (1.1-2.2) L 12/12/17 07:30 Urine Clarity Cloudy (Clear) A 12/12/17 06:25 Urine Blood Small (Negative) H 12/12/17 06:25 Ur Leukocyte Esterase Moderate (Negative) H 12/12/17 06:25 Urine Microscopic RBC 15-30 per hpf (0-3) H 12/12/17 06:25 Urine Microscopic WBC TNTC per hpf (0-3) H 12/12/17 06:25 Ur Culture Indicated? YES (NO) A 12/12/17 06:25 All other labs normal. - Imaging CT scan - abdomen: image reviewed CT scan - pelvis: image reviewed Consult Discharge Plan - Plan Referrals: Ander Blankenship MD [Primary Care Provider] - (patient is a bedhold from [facility])
[2017-12-12] MEDS: Ipratropium/Albuterol Neb 3 ML IH SCH ×3 (15:44→23:20)
[2017-12-12] MEDS: Insulin LISPRO 300 UNITS/3 ML VIAL SQ SCH ×2 (16:52→20:11)
[2017-12-12] MEDS: Acetaminophen 325 MG TABLET PO PRN (17:48)
[2017-12-12] MEDS: *HR* Heparin 5,000 UNIT/ML VIAL SQ SCH (17:48)
[2017-12-12] MEDS ORDERED: Insulin NPH 100 UNIT/ML (x5UNIT) SQ SCH (18:00)
[2017-12-12] MEDS: traZODone 50 MG TABLET PO SCH (21:48)
[2017-12-12] MEDS: Gabapentin 300 MG CAPSULE PO SCH (21:48)
[2017-12-12] MEDS ORDERED: *HR* OxyCODONE/APAP 5/325 TABLET PO ONE (22:35)
[2017-12-13] MEDS: Ipratropium/Albuterol Neb 3 ML IH SCH ×4 (04:06→22:05)
[2017-12-13 05:25] LABS: Basophils % 0.4 %; Eosinophils # 0.1 K/mcL (0.0-0.6); Eosinophils % 0.5 %; Hemoglobin 10.6 g/dL (12.9-16.9); Immature Granulocytes % 0.9 % (0-4); Lymphocytes # 1.4 K/mcL (0.6-4.6); Lymphocytes % 13.7 %; Mean Corpuscular HGB Conc 31.2 g/dL (31.6-35.5); Mean Corpuscular Hemoglobin 25.1 pg (28.0-33.3); Mean Corpuscular Volume 80.6 fL (83.0-100.0); Mean Platelet Volume 10.7 fL (9.4-12.4); Monocytes # 1.1 K/mcL (0.0-1.3); Monocytes % 10.2 %; Neutrophils # 7.9 K/mcL (1.6-8.9); Platelet Count 174 K/mcL (140-400); Red Blood Count 4.22 M/mcL (4.19-5.50); Segmented Neutrophils % 74.3 %
[2017-12-13 05:47] LABS: Magnesium 1.9 mg/dL (1.6-2.6); Phosphorous 3.8 mg/dL (2.7-4.5); Potassium 3.8 mEq/L (3.5-5.1)
[2017-12-13] MEDS: *HR* Heparin 5,000 UNIT/ML VIAL SQ SCH ×2 (06:36→16:55)
[2017-12-13] MEDS ORDERED: Insulin NPH 100 UNIT/ML (x5UNIT) SQ SCH (09:00)
[2017-12-13] MEDS: Insulin LISPRO 300 UNITS/3 ML VIAL SQ SCH ×4 (09:06→21:24)
[2017-12-13] MEDS: Aspirin Enteric Coated 81 MG Tablet PO SCH (09:09)
[2017-12-13] MEDS: cefTRIAXone 1,000 MG in Water for inj. (sterile) 20 ML 10 ML IVP SCH (09:09)
[2017-12-13] MEDS: Gabapentin 300 MG CAPSULE PO SCH ×2 (09:09→19:53)
[2017-12-13] MEDS: Fluticasone Propionate Nasal 50 MCG/SPRAY BOTTLE NS SCH (09:10)
[2017-12-13] MEDS ORDERED: Furosemide 40 MG in 0.9 % Sodium Chloride 50 ML IVPB ONE (10:38)
[2017-12-13] MEDS ORDERED: Furosemide 40 MG/4 ML VIAL IVP ONE (10:40)
--- NOTE | 2017-12-13 10:42 | Internal Med Progress Note ---
Date of Encounter: 12/13/17 Time of Encounter: 10:39 - Assessment and plan (1) Sepsis Current Visit: Yes Status: Acute Assessment and plan: Sepsis most likely from urinary source culture is growing gram-negative rods Sab[place] likely Escherichia coli we will continue Rocephin for now Qualifiers: Sepsis type: sepsis due to unspecified organism Qualified Code(s): A41.9 - Sepsis, unspecified organism (2) Mental status change Current Visit: Yes Status: Acute Assessment and plan: Mental status did changes due to urinary tract infection and sepsis which has not improved Qualifiers: Altered mental status type: delirium Qualified Code(s): R41.0 - Disorientation, unspecified (3) CHF (congestive heart failure) Current Visit: No Status: Chronic Assessment and plan: She received IV diuresis and clinically improved I will give another Lasix 40 mg IV For his creatinine Qualifiers: Heart failure type: diastolic Heart failure chronicity: acute on chronic Qualified Code(s): I50.33 - Acute on chronic diastolic (congestive) heart failure (4) Elevated troponin Current Visit: No Status: Acute Assessment and plan: Troponin trend is flat does not suggest non-STEMI (5) Uncontrolled type 2 diabetes mellitus with insulin therapy Current Visit: No Status: Acute Assessment and plan: We will continue home medication and sliding scale (6) Morbid obesity with BMI of 45.0-49.9, adult Current Visit: No Status: Chronic (7) Hypertension Current Visit: No Status: Chronic Assessment and plan: Well-controlled Qualifiers: Hypertension type: essential hypertension Qualified Code(s): I10 - Essential (primary) hypertension (8) Combined systolic and diastolic heart failure, acute Current Visit: No Status: Acute (9) Morbid obesity with BMI of 40.0-44.9, adult Current Visit: Yes Status: Acute (10) Ureteral stone Current Visit: Yes Status: Acute Assessment and plan: urology evaluation noted no surgical intervention at this point - Time Spent With Patient Total time spent is greater than 50% in coordination of care (as documented) at patient's floor/unit and/or counseling patient: - Subjective Interval history: Patient with history of congestive heart failure, COPD, diabetes, hypertension showing, morbid obesity, patient was sent from [facility] due to mental status changes and fever had a temperature 103 patient was diagnosed with a UTI and sepsis also had ureter stone urology evaluation is noted no surgical intervention also has acute kidney injury and elevated troponin troponin trend has been flat no suggestion of non-STEMI today patient feels better mental status has improved no chest pain shortness of breath is better - Constitutional Vitals: Temp Pulse Resp BP Pulse Ox 97.6 F 87 15 135/75 93 12/13/17 07:43 12/13/17 07:43 12/13/17 07:43 12/13/17 07:43 12/13/17 07:43 General appearance: Present: A&O X 3, morbidly obese, no acute distress - Eye Eye exam: Present: PERRL, conjuntiva pink, sclera anicteric Pupils: Present: PERRL - Neck Neck exam general surgery: Present: supple, trachea midline. Absent: lymphadenopathy - Respiratory Respiratory exam: Present: rales, rhonchi - Cardiovascular Cardiovascular exam: Present: RRR, +S1, +S2. Absent: diastolic murmur, gallop, rubs, systolic murmur - GI/Abdominal GI/Abdominal exam: Present: distended Internal Medicine: Result - Labs CBC & Chem 7: 12/13/17 04:27 12/13/17 04:27 Labs: Short CBC 12/13/17 Range/Units 04:27 WBC 10.5 (4.3-11.1) K/mcL Hgb 10.6 L (12.9-16.9) g/dL Hct 34.0 L (37.5-50.1) % Plt Count 174 (140-400) K/mcL Neutrophils # 7.9 (1.6-8.9) K/mcL BMP 12/13/17 04:27 Sodium 132 L Potassium 3.8 Chloride 98 Carbon Dioxide 23 BUN 32 H Creatinine 1.49 H Glucose 97 Calcium 9.0 Cardiac Enzymes 12/12/17 12/12/17 Range/Units 13:52 19:42 Troponin I 0.05 H* 0.04 H* (< 0.04) ng/mL - ABG Interpretation ABG results: PT/INR, D-dimer PT 13.2 Seconds (9.4-12.1) H 12/12/17 07:30 Consult Discharge Plan - Plan Referrals: Ander Blankenship MD [Primary Care Provider] - (patient is a bedhold from [facility])
[2017-12-13] MEDS: Budesonide/Formoterol 160/4.5 MDI IH SCH ×2 (11:01→22:05)
[2017-12-13] MEDS: Acetaminophen 325 MG TABLET PO PRN (11:38)
--- NOTE | 2017-12-13 14:39 | Electrocardiograph Report ---
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
[2017-12-13] MEDS: Insulin NPH 100 UNIT/ML (x5UNIT) SQ SCH (16:55)
[2017-12-13] MEDS: traZODone 50 MG TABLET PO SCH (19:53)
[2017-12-13] MEDS ORDERED: Chloraseptic Spray 177 ML BOTTLE MM PRN (23:57)
[2017-12-14] MEDS: Ipratropium/Albuterol Neb 3 ML IH SCH ×4 (04:06→21:57)
[2017-12-14] MEDS: *HR* Heparin 5,000 UNIT/ML VIAL SQ SCH ×2 (05:07→17:19)
[2017-12-14 07:26] LABS: BUN/Creatinine Ratio 20 (6-26); Blood Urea Nitrogen 25 mg/dL (8-23); Calcium 8.8 mg/dL (8.6-10.3); Carbon Dioxide 23 mEq/L (23-29); Chloride 97 mEq/L (98-107); Glucose 101 mg/dL (70-105); Osmolality,Calculated 279 (280-300); Potassium 3.6 mEq/L (3.5-5.1); Sodium 132 mEq/L (136-145); eGFR For African Americans > 60 (> 60); eGFR For Non-African Americans 59 (> 60)
[2017-12-14] MEDS: Insulin LISPRO 300 UNITS/3 ML VIAL SQ SCH ×4 (07:57→21:00)
[2017-12-14] MEDS: Aspirin Enteric Coated 81 MG Tablet PO SCH (08:09)
[2017-12-14] MEDS: Gabapentin 300 MG CAPSULE PO SCH (08:09)
[2017-12-14] MEDS: cefTRIAXone 1,000 MG in Water for inj. (sterile) 20 ML 10 ML IVP SCH (08:10)
[2017-12-14] MEDS: Insulin NPH 100 UNIT/ML (x5UNIT) SQ SCH ×2 (08:10→17:19)
[2017-12-14] MEDS: Fluticasone Propionate Nasal 50 MCG/SPRAY BOTTLE NS SCH (08:21)
[2017-12-14 10:00] LABS: Basophils % 0.3 %; Eosinophils # 0.2 K/mcL (0.0-0.6); Eosinophils % 2.1 %; Hematocrit 33.8 % (37.5-50.1); Hemoglobin 10.6 g/dL (12.9-16.9); Immature Granulocytes % 0.6 % (0-4); Lymphocytes # 1.7 K/mcL (0.6-4.6); Lymphocytes % 19.2 %; Mean Corpuscular HGB Conc 31.4 g/dL (31.6-35.5); Mean Corpuscular Hemoglobin 25.1 pg (28.0-33.3); Mean Corpuscular Volume 80.1 fL (83.0-100.0); Mean Platelet Volume 10.5 fL (9.4-12.4); Monocytes # 0.9 K/mcL (0.0-1.3); Monocytes % 10.4 %; Neutrophils # 6.1 K/mcL (1.6-8.9); Platelet Count 182 K/mcL (140-400); Red Blood Count 4.22 M/mcL (4.19-5.50); Red Cell Distribution Width 15.9 % (11.5-14.5); Segmented Neutrophils % 67.4 %
[2017-12-14] MEDS: Budesonide/Formoterol 160/4.5 MDI IH SCH ×2 (10:09→21:57)
[2017-12-14] MEDS ORDERED: Cefepime HCl 2,000 MG in Water for inj. (sterile) 20 ML 20 ML IVP SCH (14:00)
[2017-12-14] MEDS: Cefepime HCl 2,000 MG in Water for inj. (sterile) 20 ML 20 ML IVP SCH (15:30)
--- NOTE | 2017-12-14 18:17 | Internal Med Progress Note ---
Date of Encounter: 12/14/17 Time of Encounter: 11:00 - Assessment and plan (1) UTI (urinary tract infection) Current Visit: No Status: Acute Assessment and plan: Urine cultures positive for Pseudomonas to my: Antibiotics changed today to cefepime Qualifiers: Urinary tract infection type: acute cystitis Hematuria presence: without hematuria Qualified Code(s): N30.00 - Acute cystitis without hematuria (2) Urinary retention Current Visit: Yes Status: Acute Assessment and plan: Urology consult and evaluate patient on 12/12/17 with recommendations for early catheter at this time Oziel any further recommendations for discharge (3) JENN (acute kidney injury) Current Visit: Yes Status: Acute Assessment and plan: Resolved; suspect secondary to sepsis (4) Sepsis Current Visit: Yes Status: Acute Assessment and plan: Resolved; secondary to the above Qualifiers: Sepsis type: sepsis due to unspecified organism Qualified Code(s): A41.9 - Sepsis, unspecified organism (5) COPD (chronic obstructive pulmonary disease) Current Visit: No Status: Chronic Assessment and plan: no signs of acute exacerbation baseline home O2: 2L continue home meds and O2 supplementation Qualifiers: COPD type: unspecified COPD Qualified Code(s): J44.9 - Chronic obstructive pulmonary disease, unspecified (6) CHF (congestive heart failure) Current Visit: No Status: Chronic Assessment and plan: appears to be euvolemic at this time Continue home medications Qualifiers: Heart failure type: diastolic Heart failure chronicity: acute on chronic Qualified Code(s): I50.33 - Acute on chronic diastolic (congestive) heart failure (7) Diabetes Current Visit: No Status: Chronic Assessment and plan: continue home insulin dosage sliding scale insulin as needed monitor fingerstick and blood glucose ADA diet Qualifiers: Diabetes mellitus type: type 2 Diabetes mellitus mcc insulin use: with superintendent [employer] use Diabetes mellitus complication status: with hyperglycemia Qualified Code(s): E11.65 - Type 2 diabetes mellitus with hyperglycemia; Z79.4 - bed bug exterminator (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) use of insulin; Z79.4 - MCC (current) use of insulin; Z79.4 - MCC (current) use of insulin; Z79.4 - bed bug exterminator (current ) use of insulin (8) Elevated troponin Current Visit: No Status: Acute Assessment and plan: Suspect secondary to demand ischemia in the setting of sepsis and JENN (9) Hypertension Current Visit: No Status: Chronic Assessment and plan: BP within acceptable range continue home meds Qualifiers: Hypertension type: essential hypertension Qualified Code(s): I10 - Essential (primary) hypertension (10) Ureteral stone Current Visit: Yes Status: Acute Assessment and plan: CT findings reported 1mm mildly obstructing right ureteral calculus Urology consulted and appreciate recommendations (11) Morbid obesity with BMI of 40.0-44.9, adult Current Visit: Yes Status: Acute Assessment and plan: BMI 45 (12) DVT prophylaxis Current Visit: No Status: Acute Assessment and plan: heparin SQ - Time Spent With Patient Total time spent is greater than 50% in coordination of care (as documented) at patient's floor/unit and/or counseling patient: - Subjective Interval history: Altered mental status has resolved and patient with no acute events overnight - Constitutional Vitals: Temp Pulse Resp BP Pulse Ox 98.1 F 74 22 134/74 97 12/14/17 16:04 12/14/17 16:04 12/14/17 16:04 12/14/17 16:04 12/14/17 16:04 General appearance: Present: A&O X 3, morbidly obese, no acute distress - Respiratory Respiratory exam: Present: CTAB. Absent: accessory muscle use, rales, rhonchi, wheezes - Cardiovascular Cardiovascular exam: Present: RRR, +S1, +S2. Absent: diastolic murmur, gallop, rubs, systolic murmur Internal Medicine: Result - Labs CBC & Chem 7: 12/14/17 09:49 12/14/17 06:31 Labs: Short CBC 12/14/17 Range/Units 09:49 WBC 9.1 (4.3-11.1) K/mcL Hgb 10.6 L (12.9-16.9) g/dL Hct 33.8 L (37.5-50.1) % Plt Count 182 (140-400) K/mcL Neutrophils # 6.1 (1.6-8.9) K/mcL BMP 12/14/17 06:31 Sodium 132 L Potassium 3.6 Chloride 97 L Carbon Dioxide 23 BUN 25 H Creatinine 1.23 Glucose 101 Calcium 8.8 - ABG Interpretation ABG results: PT/INR, D-dimer PT 13.2 Seconds (9.4-12.1) H 12/12/17 07:30 Consult Discharge Plan - Plan Referrals: Ander Blankenship MD [Primary Care Provider] - (patient is a bedhold from [place])
[2017-12-15] MEDS: Cefepime HCl 2,000 MG in Water for inj. (sterile) 20 ML 20 ML IVP SCH ×3 (00:35→17:48)
[2017-12-15] MEDS: Gabapentin 300 MG CAPSULE PO SCH ×2 (00:35→09:03)
[2017-12-15] MEDS: traZODone 50 MG TABLET PO SCH (00:35)
[2017-12-15] MEDS: Acetaminophen 325 MG TABLET PO PRN (03:15)
[2017-12-15] MEDS: Ipratropium/Albuterol Neb 3 ML IH SCH ×3 (04:09→16:01)
[2017-12-15] MEDS: *HR* Heparin 5,000 UNIT/ML VIAL SQ SCH ×2 (05:43→17:46)
[2017-12-15] MEDS: Insulin LISPRO 300 UNITS/3 ML VIAL SQ SCH ×3 (08:48→16:40)
[2017-12-15] MEDS: Fluticasone Propionate Nasal 50 MCG/SPRAY BOTTLE NS SCH (09:03)
[2017-12-15] MEDS: Aspirin Enteric Coated 81 MG Tablet PO SCH (09:04)
[2017-12-15] MEDS: Insulin NPH 100 UNIT/ML (x5UNIT) SQ SCH ×2 (09:12→17:47)
[2017-12-15 09:59] LABS: Basophils # 0.1 K/mcL (0.0-0.2); Basophils % 0.7 %; Eosinophils # 0.4 K/mcL (0.0-0.6); Eosinophils % 6.1 %; Hematocrit 32.1 % (37.5-50.1); Hemoglobin 10.3 g/dL (12.9-16.9); Immature Granulocytes % 0.6 % (0-4); Immature Platelets 3.6 % (1.1-6.1); Lymphocytes # 1.4 K/mcL (0.6-4.6); Lymphocytes % 19.7 %; Mean Corpuscular HGB Conc 32.1 g/dL (31.6-35.5); Mean Corpuscular Hemoglobin 25.9 pg (28.0-33.3); Mean Corpuscular Volume 80.9 fL (83.0-100.0); Mean Platelet Volume 10.1 fL (9.4-12.4); Monocytes # 0.6 K/mcL (0.0-1.3); Monocytes % 7.6 %; Neutrophils # 4.7 K/mcL (1.6-8.9); Platelet Count 202 K/mcL (140-400); Red Blood Count 3.97 M/mcL (4.19-5.50); Red Cell Distribution Width 15.8 % (11.5-14.5); Segmented Neutrophils % 65.3 %
[2017-12-15 10:18] LABS: BUN/Creatinine Ratio 21 (6-26); Blood Urea Nitrogen 23 mg/dL (8-23); Calcium 8.9 mg/dL (8.6-10.3); Carbon Dioxide 25 mEq/L (23-29); Chloride 100 mEq/L (98-107); Glucose 162 mg/dL (70-105); Osmolality,Calculated 283 (280-300); Potassium 3.6 mEq/L (3.5-5.1); Sodium 133 mEq/L (136-145); eGFR For African Americans > 60 (> 60); eGFR For Non-African Americans > 60 (> 60)
[2017-12-15] MEDS: Budesonide/Formoterol 160/4.5 MDI IH SCH (11:08)
--- NOTE | 2017-12-15 16:16 | Physician Discharge Referral ---
ExtendedCare Referral Info Institutional Level of Care: Skilled - Diagnosis (1) UTI (urinary tract infection) Status: Acute (2) Urinary retention Status: Acute (3) JENN (acute kidney injury) Status: Acute (4) Sepsis Status: Acute (5) COPD (chronic obstructive pulmonary disease) Status: Chronic (6) CHF (congestive heart failure) Status: Chronic (7) Diabetes Status: Chronic (8) Elevated troponin Status: Acute (9) Hypertension Status: Chronic (10) Ureteral stone Status: Acute (11) Morbid obesity with BMI of 40.0-44.9, adult Status: Acute (12) DVT prophylaxis Status: Acute - Transfer Medications Prescriptions: Cefepime HCl/Dextrose, Iso-Osm [Cefepime 2 gm Injection] 2 gm IV Q12H 5 Days # 10 bob Home Medications: Aspirin [Lo-Dose Aspirin EC] 81 mg PO DAILY 12/10/16 [History] Gabapentin [Neurontin] 300 mg PO BID 12/10/16 [History] Sertraline [Zoloft] 100 mg PO DAILY 12/10/16 [History] Lovastatin 10 mg PO HS 04/07/17 [History] Albuterol Sulfate [Albuterol Inhaler] 2 puff IH Q6HR #1 hfa.aer.ad 06/20/17 [Rx] Ipratropium/Albuterol Neb [Duoneb] 3 ml IH Q6HR 08/09/17 [History] traZODone [TraZODone] 50 mg PO HS 08/09/17 [History] Acetaminophen [Tylenol] 650 mg PO Q4HR PRN 10/04/17 [History] Carvedilol 12.5 mg PO BID 10/04/17 [History] Diclofenac Sodium [Voltaren] 1 appl TP BID 10/04/17 [History] Glucagon,Human Recombinant [Glucagen] 1 mg IJ NOW PRN 10/04/17 [History] Phenol [Chloraseptic] 1 spr MM Q2H PRN 10/04/17 [History] Fluticasone Propionate Nasal [Flonase] 2 spr NS DAILY 12/12/17 [History] Fluticasone/Umeclidin/Vilanter [Trelegy Ellipta 100-62.5-25] 1 puff IH DAILY [History] Furosemide [Lasix] 40 mg PO DAILY 12/12/17 [History] Insulin NPH, HUMAN [HumuLIN N] 30 unit SQ QPM 12/12/17 [History] Insulin NPH, HUMAN [HumuLIN N] 50 unit SQ QAM 12/12/17 [History] Insulin Regular Human [Humulin R] 0 unit SQ TID PRN 12/12/17 [History] Meloxicam [Mobic] 15 mg PO DAILY 12/12/17 [History] Cefepime HCl/Dextrose, Iso-Osm [Cefepime 2 gm Injection] 2 gm IV Q12H 5 Days # 10 froz.piggy 12/15/17 [Rx] Allergies/Adverse Reactions: 3 Allergy/AdvReac Type Severity Reaction Status Date / Time No Known Drug Allergies Allergy See Verified 08/20/17 15:01 Comments - Respiratory Orders Smoking Cessation: Smoking cessation has been advised. For more information, call the [place] Tobacco Quit Line at 6-407-MZES-NOW. - Treatments List/Other: Continue Harper catheter until seen by urologist CERTIFICATION: I certify that the transfer of the above named patient to an Extended Care Facility is necessary for the continuing treatment of the diagnosis listed. The above information is true and accurate reflection of patient's current condition. Confidential - Redisclosure prohibited without a patient's written consent.
--- NOTE | 2017-12-15 16:16 | Discharge Summary ---
- NOTES TO OUTPATIENT PROVIDER Notes to Outpatient Provider: Continue a 5 day course of IV cefepime for Pseudomonas UTI. Follow-up with urology as an outpatient for management of Harper catheter due to urinary retention. Date of Encounter: 12/15/17 Time of Encounter: 11:00 - Discharge Diagnosis (1) UTI (urinary tract infection) Priority: Primary Status: Acute Qualifiers: Urinary tract infection type: acute cystitis Hematuria presence: without hematuria Qualified Code(s): N30.00 - Acute cystitis without hematuria (2) Urinary retention Priority: Primary Status: Acute (3) JENN (acute kidney injury) Priority: Secondary Status: Acute (4) Sepsis Priority: Primary Status: Acute Qualifiers: Sepsis type: sepsis due to unspecified organism Qualified Code(s): A41.9 - Sepsis, unspecified organism (5) COPD (chronic obstructive pulmonary disease) Priority: Secondary Status: Chronic Qualifiers: COPD type: unspecified COPD Qualified Code(s): J44.9 - Chronic obstructive pulmonary disease, unspecified (6) CHF (congestive heart failure) Priority: Secondary Status: Chronic Qualifiers: Heart failure type: diastolic Heart failure chronicity: acute on chronic Qualified Code(s): I50.33 - Acute on chronic diastolic (congestive) heart failure (7) Diabetes Priority: Secondary Status: Chronic Qualifiers: Diabetes mellitus type: type 2 Diabetes mellitus exterminator helper termite insulin use: with penitentiary use Diabetes mellitus complication status: with hyperglycemia Qualified Code(s): E11.65 - Type 2 diabetes mellitus with hyperglycemia; Z79.4 - terminal block assembler (current) use of insulin; Z79.4 - [facility] (current) use of insulin; Z79.4 - [facility] (current) use of insulin; Z79.4 - terminal block assembler (current ) use of insulin (8) Elevated troponin Priority: Secondary Status: Acute (9) Hypertension Priority: Secondary Status: Chronic Qualifiers: Hypertension type: essential hypertension Qualified Code(s): I10 - Essential (primary) hypertension (10) Ureteral stone Priority: Secondary Status: Acute (11) Morbid obesity with BMI of 40.0-44.9, adult Priority: Secondary Status: Acute Hospital course: Patient is a 67-year-old male with past medical history significant for COPD on LTOT, CHF, DM, HTN, HLD, morbid obesity who presented to the ER on 12/12/17 from [facility] for evaluation of change in mental status and fever. As per [facility] records, patient was reported to have T-max of 103, however he has had a low grade fever since his hospitalization. In the ER, he was noted to be confused. ER workup reported UTI, elevated TNI, JENN, and ureteral stone. A Harper catheter was placed in the ER with removal of 2L of fluid. Pt's mental status improved through his course in the ER. He was admitted to medical surgical floor for further management. Patients hospital stay, his altered mental status resolved and patients urine cultures grew positive for Pseudomonas and antibiotics was changed to cefepime. Patients sepsis secondary to UTI resolved with treatment on IV antibiotics Urology was also consulted with recommendations to maintain Harper catheter and to follow-up as outpatient for urinary retention. Patient is now medically stable to be discharged to [facility] to continue a 5 day course of IV cefepime and to follow-up with urology as an outpatient. - Time Spent with Patient Total time spent providing and/or coordinating discharge services: Less than 30 minutes - Discharge Medications Prescriptions: Cefepime HCl/Dextrose, Iso-Osm [Cefepime 2 gm Injection] 2 gm IV Q12H 5 Days # 10 [email or web address] Home Medications: Aspirin [Lo-Dose Aspirin EC] 81 mg PO DAILY 12/10/16 [History] Gabapentin [Neurontin] 300 mg PO BID 12/10/16 [History] Sertraline [Zoloft] 100 mg PO DAILY 12/10/16 [History] Lovastatin 10 mg PO HS 04/07/17 [History] Albuterol Sulfate [Albuterol Inhaler] 2 puff IH Q6HR #1 hfa.aer.ad 06/20/17 [Rx] Ipratropium/Albuterol Neb [Duoneb] 3 ml IH Q6HR 08/09/17 [History] traZODone [TraZODone] 50 mg PO HS 08/09/17 [History] Acetaminophen [Tylenol] 650 mg PO Q4HR PRN 10/04/17 [History] Carvedilol 12.5 mg PO BID 10/04/17 [History] Diclofenac Sodium [Voltaren] 1 appl TP BID 10/04/17 [History] Glucagon,Human Recombinant [Glucagen] 1 mg IJ NOW PRN 10/04/17 [History] Phenol [Chloraseptic] 1 spr MM Q2H PRN 10/04/17 [History] Fluticasone Propionate Nasal [Flonase] 2 spr NS DAILY 12/12/17 [History] Fluticasone/Umeclidin/Vilanter [Trelegy Ellipta 100-62.5-25] 1 puff IH DAILY [History] Furosemide [Lasix] 40 mg PO DAILY 12/12/17 [History] Insulin NPH, HUMAN [HumuLIN N] 30 unit SQ QPM 12/12/17 [History] Insulin NPH, HUMAN [HumuLIN N] 50 unit SQ QAM 12/12/17 [History] Insulin Regular Human [Humulin R] 0 unit SQ TID PRN 12/12/17 [History] Meloxicam [Mobic] 15 mg PO DAILY 12/12/17 [History] Cefepime HCl/Dextrose, Iso-Osm [Cefepime 2 gm Injection] 2 gm IV Q12H 5 Days # 10 froz.piggy 12/15/17 [Rx] Allergies/Adverse Reactions: 3 Allergy/AdvReac Type Severity Reaction Status Date / Time No Known Drug Allergies Allergy See Verified 08/20/17 15:01 Comments Date of admission: 12/12/17 12:02 Primary care physician: Ander Blankenship MD Consults: 12/12/17 13:07 Consult to Nutrition [CONS] Routine Comment: Consulting Provider: NUTRITION Reason for Dietary Consult: MST Score 12/13/17 08:01 Consult to Resaw Carriage Operator [CONS] Routine Reason for SW Consult: moises diaz 12/14/17 10:35 Consult to Invasive Line Access Team [CONS] Routine Reason for Consult: IV antibiotic therapy Line Type: EPIV - Constitutional Vitals: Temp Pulse Resp BP Pulse Ox 97.9 F 80 18 105/49 92 12/15/17 11:07 12/15/17 11:07 12/15/17 16:01 12/15/17 11:07 12/15/17 16:01 General appearance: Present: A&O X 3, morbidly obese, no acute distress - Respiratory Respiratory exam: Present: CTAB. Absent: accessory muscle use, rales, rhonchi, wheezes - Cardiovascular Cardiovascular exam: Present: RRR, +S1, +S2. Absent: diastolic murmur, gallop, rubs, systolic murmur - Patient Status Disposition: Transfer SNF Condition: Fair - Discharge Instructions Follow Up With: Ander Blankenship MD [Primary Care Provider] - (patient is a bedhold from [place]) Agus Edmonds MD [Partnered Physician] - (Web request sent ) Forms: ED Satisfaction Letter
[2017-12-15 16:28] VITALS: BP 139/70
== END 2017-12-15 18:00 | DRG 871 ==
LOC: EMEROO 06:10 → 2ANU 06:10 → SUATTDRO 12:02 → 2ANU 12:10
PROVIDERS: ADMIT Internal Medicine; ATTEND Hospitalist

== ENCOUNTER 2018-01-13 06:05 | Inpatient (IN) ==
--- NOTE | 2018-01-13 06:18 | Emergency Department Note ---
Disposition Clinical Impression: Hematuria Qualifiers: Hematuria type: gross Qualified Code(s): R31.0 - Gross hematuria Disposition: Still a Patient Condition: Good General Adult HPI - General Stated complaint: AMS bleeding from cath Time Seen by Provider: 01/13/18 06:12 Nursing Notes Reviewed: Yes Vital Signs Reviewed: Yes - History of Present Illness HPI Narrative: 67-year-old male presents to emergency department as a return visit from the extended care facility. Patient recently had full workup for altered mental status with negative head CT, urinalysis, chest x-ray. Patient had Harper catheter placed as there was concern for urinary retention yesterday. Patient was reported to have bleeding from Harper catheter. Reported bright red blood. Patient not currently on any blood thinning medications. - Related Data Home Medications Medication Instructions Recorded Confirmed Aspirin [Lo-Dose Aspirin EC] 81 mg PO DAILY 12/10/16 01/11/18 Gabapentin [Neurontin] 300 mg PO BID 12/10/16 01/11/18 Sertraline [Zoloft] 100 mg PO DAILY 12/10/16 01/11/18 Lovastatin 10 mg PO HS 04/07/17 01/11/18 Ipratropium/Albuterol Neb [Duoneb] 3 ml IH Q6HR 08/09/17 01/11/18 traZODone [TraZODone] 50 mg PO HS 08/09/17 01/11/18 Acetaminophen [Tylenol] 650 mg PO Q4HR PRN 10/04/17 01/11/18 Carvedilol 12.5 mg PO BID 10/04/17 01/11/18 Glucagon,Human Recombinant 1 mg IJ NOW PRN 10/04/17 01/11/18 [Glucagen] Phenol [Chloraseptic] 1 spr MM Q2H PRN 10/04/17 01/11/18 Fluticasone Propionate Nasal 2 spr NS DAILY 12/12/17 01/11/18 [Flonase] Fluticasone/Umeclidin/Vilanter 1 puff IH DAILY 12/12/17 01/11/18 [Trelegy Ellipta 100-62.5-25] Furosemide [Lasix] 40 mg PO DAILY 12/12/17 01/11/18 Insulin Regular Human [Humulin R] 0 unit SQ TID PRN 12/12/17 01/11/18 Buspirone HCl [Buspar] 10 mg PO BID 01/11/18 01/11/18 Insulin NPH Human Isophane 30 unit SQ HS 01/11/18 01/11/18 [Novolin N] Insulin NPH Human Isophane 50 unit SQ QAM 01/11/18 01/11/18 [Novolin N] Potassium Chloride [K-Tab ER] 20 meq PO DAILY 01/11/18 01/11/18 Previous Rx's Medication Instructions Recorded Albuterol Sulfate [Albuterol 2 puff IH Q6HR #1 hfa.aer.ad 06/20/17 Inhaler] Allergies Allergy/AdvReac Type Severity Reaction Status Date / Time No Known Drug Allergies Allergy See Verified 08/20/17 15:01 Comments All systems ED: reviewed and negative except as stated. Review of Systems: As Per HPI Constitutional: Denies: fever Cardiovascular: Denies: chest pain Respiratory: Denies: cough, dyspnea, wheezes Gastrointestinal: Reports: abdominal pain. Denies: nausea, vomiting Genitourinary: Reports: hematuria. Denies: urgency, dysuria Musculoskeletal: Denies: back pain Integumentary: Denies: rash Neurological: Denies: headache Past Medical History - Past Medical History Medical history: Reports: CHF, COPD, diabetes, hyperlipidemia, hypertension Surgical history: Reports: pacemaker/AICD, other Psychiatric history: Reports: depression - Social History Smoking Status: Former smoker Smokeless Tobacco Status: No Alcohol use: Reports: none Drug use: Reports: none Physical Exam - Head Head exam: atraumatic, normocephalic - Eye Eye exam: Present: EOMI. Absent: scleral icterus, conjunctival injection - ENT ENT exam: normal oropharynx, mucous membranes moist - Neck Neck exam: Present: trachea midline - Chest Chest inspection: Present: symmetric chest wall rise - Respiratory Respiratory exam: Present: normal lung sounds bilaterally. Absent: respiratory distress - Cardiovascular Cardiovascular exam: Present: regular rate, normal rhythm, normal heart sounds - Abdominal Exam Abdominal exam: Present: soft, tenderness. Absent: distention, guarding, rebound Abdominal tenderness: Present: mild - Male exam: Present: normal inspection, other (Obdulio hematuria and Harper catheter.) - Extremities Exam Extremities exam: Present: normal capillary refill - Neurological Exam Neurological exam: Present: alert - Psychiatric Psychiatric exam: Present: normal affect, normal mood - Skin Skin exam: Present: warm, dry, intact. Absent: rash Course Vital Signs Temperature 98.1 F 01/13/18 06:12 Pulse Rate 81 01/13/18 06:12 Respiratory Rate 20 01/13/18 06:12 Blood Pressure 115/103 01/13/18 06:12 O2 Sat by Pulse Oximetry 96 01/13/18 06:12 Temperature 98.1 F 01/13/18 06:12 Pulse Rate 81 01/13/18 06:12 Respiratory Rate 20 01/13/18 06:12 Blood Pressure 115/103 01/13/18 06:12 O2 Sat by Pulse Oximetry 96 01/13/18 06:12 Oxygen Delivery Oxygen Delivery Nasal Cannula Medical Decision Making - MDM Narrative Medical decision making narrative: 67-year-old male presents emergency department from [facility] is still with concern for bright red blood coming out of Harper catheter was placed yesterday. On physical exam, there is obdulio hematuria in the Harper catheter. It appears to be in place. There is no penile swelling. Abdomen is mildly tender to palpation of the suprapubic area. We will obtain CT scan of abdomen and pelvis to rule out hemorrhagic cystitis, or any other intra-abdominal pathology. We are also obtaining a CBC to rule out anemia. Patient recently had a workup for altered mental status yesterday. Negative head CT, negative chest x-ray, with negative urinalysis. Transfer of care will be provided to the day team. Disposition is currently pending results of labs and CT scan.
--- NOTE | 2018-01-13 07:08 | Emergency Department Note ---
Disposition Clinical Impression: Hematuria Qualifiers: Hematuria type: gross Qualified Code(s): R31.0 - Gross hematuria Disposition: Still a Patient Condition: Good Referrals: Ander Blankenship MD [Primary Care Provider] - General Adult HPI - General Chief complaint: ED Altered Mental Status Stated complaint: AMS bleeding from cath Time Seen by Provider: 01/13/18 06:12 Source: family, EMS Limitations: altered mental status Nursing Notes Reviewed: Yes Vital Signs Reviewed: Yes - History of Present Illness Pain Scale: 0 - Related Data Home Medications Medication Instructions Recorded Confirmed Aspirin [Lo-Dose Aspirin EC] 81 mg PO DAILY 12/10/16 01/11/18 Gabapentin [Neurontin] 300 mg PO BID 12/10/16 01/11/18 Sertraline [Zoloft] 100 mg PO DAILY 12/10/16 01/11/18 Lovastatin 10 mg PO HS 04/07/17 01/11/18 Ipratropium/Albuterol Neb [Duoneb] 3 ml IH Q6HR 08/09/17 01/11/18 traZODone [TraZODone] 50 mg PO HS 08/09/17 01/11/18 Acetaminophen [Tylenol] 650 mg PO Q4HR PRN 10/04/17 01/11/18 Carvedilol 12.5 mg PO BID 10/04/17 01/11/18 Glucagon,Human Recombinant 1 mg IJ NOW PRN 10/04/17 01/11/18 [Glucagen] Phenol [Chloraseptic] 1 spr MM Q2H PRN 10/04/17 01/11/18 Fluticasone Propionate Nasal 2 spr NS DAILY 12/12/17 01/11/18 [Flonase] Fluticasone/Umeclidin/Vilanter 1 puff IH DAILY 12/12/17 01/11/18 [Trelegy Ellipta 100-62.5-25] Furosemide [Lasix] 40 mg PO DAILY 12/12/17 01/11/18 Insulin Regular Human [Humulin R] 0 unit SQ TID PRN 12/12/17 01/11/18 Buspirone HCl [Buspar] 10 mg PO BID 01/11/18 01/11/18 Insulin NPH Human Isophane 30 unit SQ HS 01/11/18 01/11/18 [Novolin N] Insulin NPH Human Isophane 50 unit SQ QAM 01/11/18 01/11/18 [Novolin N] Potassium Chloride [K-Tab ER] 20 meq PO DAILY 01/11/18 01/11/18 Previous Rx's Medication Instructions Recorded Albuterol Sulfate [Albuterol 2 puff IH Q6HR #1 hfa.aer.ad 06/20/17 Inhaler] Allergies Allergy/AdvReac Type Severity Reaction Status Date / Time No Known Drug Allergies Allergy See Verified 08/20/17 15:01 Comments Constitutional: Denies: fever Cardiovascular: Denies: chest pain Respiratory: Denies: cough, dyspnea, wheezes Gastrointestinal: Reports: abdominal pain. Denies: nausea, vomiting Genitourinary: Reports: hematuria. Denies: urgency, dysuria Musculoskeletal: Denies: back pain Integumentary: Denies: rash Neurological: Denies: headache Past Medical History - Past Medical History Medical history: Reports: CHF, COPD, diabetes, hyperlipidemia, hypertension Surgical history: Reports: pacemaker/AICD, other Psychiatric history: Reports: depression - Social History Smoking Status: Former smoker Smokeless Tobacco Status: No Alcohol use: Reports: none Drug use: Reports: none Physical Exam - General Limitations: altered mental status General appearance: in no apparent distress Course Vital Signs Temperature 98.1 F 01/13/18 06:12 Pulse Rate 81 01/13/18 06:12 Respiratory Rate 20 01/13/18 06:12 Blood Pressure 115/103 01/13/18 06:12 O2 Sat by Pulse Oximetry 96 01/13/18 06:12 Temperature 98.1 F 01/13/18 06:12 Pulse Rate 81 01/13/18 06:12 Respiratory Rate 20 01/13/18 06:12 Blood Pressure 115/103 01/13/18 06:12 O2 Sat by Pulse Oximetry 96 01/13/18 06:12 Oxygen Delivery Oxygen Delivery Nasal Cannula Attestation Statement - Attestation Attestation: I, Jean Vee MD, personally evaluated this patient and discussed their management with the resident physician. I reviewed the resident's note and agree with the documented findings, medical decision making, and plan of care. 67-year-old male presents to the emergency department from a local retirement for gross hematuria and altered mental status. Patient was seen here about 24 hours ago with altered mental status and urinary retention. He had a complete workup including head CT which was negative. A Harper catheter was placed in his urine was clear. Since then he has developed gross hematuria the Harper bag and retirement reported he has altered status. Patient does appear to be altered however he answers questions appropriately and is oriented. He does complain of some mid lower abdominal pain. On examination patient is a well-developed morbidly obese elderly male in no acute distress. He is alert and oriented 3. There is no cyanosis or diaphoresis. Breath sounds are decreased but equal bilaterally with no rales or wheezes noted. Heart regular rate and rhythm. Abdomen is soft with normal bowel sounds. Some mid lower abdominal tenderness. Workup initiated. At shift change patient is signed out to the oncoming dayshift team, Dr. Ochoa and Dr. Dixie Meza.
[2018-01-13 07:27] LABS: Albumin 3.6 g/dL (3.5-5.7); Albumin/Globulin Ratio 0.9 (1.1-2.2); Bilirubin,Total 0.7 mg/dL (0.3-1.0); Calcium 9.5 mg/dL (8.6-10.3); Potassium 4.2 mEq/L (3.5-5.1); Total Protein 7.6 g/dL (6.4-8.9)
[2018-01-13 07:48] LABS: Basophils # 0.1 K/mcL (0.0-0.2); Basophils % 0.6 %; Eosinophils # 0.5 K/mcL (0.0-0.6); Eosinophils % 3.7 %; Hematocrit 38.3 % (37.5-50.1); Hemoglobin 11.7 g/dL (12.9-16.9); Lymphocytes # 2.3 K/mcL (0.6-4.6); Lymphocytes % 17.3 %; Mean Corpuscular HGB Conc 30.5 g/dL (31.6-35.5); Mean Corpuscular Hemoglobin 25.4 pg (28.0-33.3); Mean Corpuscular Volume 83.3 fL (83.0-100.0); Monocytes # 0.9 K/mcL (0.0-1.3); Monocytes % 6.6 %; Neutrophils # 9.3 K/mcL (1.6-8.9); Platelet Count 230 K/mcL (140-400); Segmented Neutrophils % 70.8 %
[2018-01-13 07:54] LABS: Bilirubin,Urine Small (Negative); Blood,Urine Large (Negative); Clarity,Urine Cloudy (Clear); Glucose,Urine (UA) Normal (Normal); Ketones,Urine Trace mg/dL (Negative); Leukocyte Esterase,Urine Moderate (Negative); Nitrite,Urine Negative (Negative); Protein,Urine >=1000 mg/dL (Neg-Trace); Specific Gravity,Urine 1.027 (1.010-1.025); Urobilinogen,Urine Normal (Normal)
[2018-01-13 07:56] LABS: Bacteria,Urine None Seen per hpf (None-Few); Hyaline Casts,Urine None Seen per lpf (None-Few); RBC,Urine 0-3 per hpf (0-3); Squamous Epithelial Cell,Urine None Seen per lpf (None-Few); WBC,Urine 0-3 per hpf (0-3)
[2018-01-13 08:01] LABS: Color,Urine Red (Yellow)
[2018-01-13] MEDS ORDERED: Levofloxacin 750 MG/150 ML 750 MG/150 ML BAG IVPB ONE (08:12)
--- NOTE | 2018-01-13 08:17 | Emergency Department Note ---
Disposition Clinical Impression: Cystitis Hematuria Qualifiers: Hematuria type: gross Qualified Code(s): R31.0 - Gross hematuria Altered mental status Qualifiers: Altered mental status type: unspecified Qualified Code(s): R41.82 - Altered mental status, unspecified Disposition: Admitted As Inpatient Condition: Good Referrals: Ander Blankenship MD [Primary Care Provider] - General Adult HPI - General Chief complaint: ED Altered Mental Status Stated complaint: AMS bleeding from cath Time Seen by Provider: 01/13/18 06:12 Source: family, EMS Limitations: altered mental status - History of Present Illness Pain Scale: 0 - Related Data Home Medications Medication Instructions Recorded Confirmed Aspirin [Lo-Dose Aspirin EC] 81 mg PO DAILY 12/10/16 01/13/18 Gabapentin [Neurontin] 300 mg PO BID 12/10/16 01/13/18 Sertraline [Zoloft] 100 mg PO DAILY 12/10/16 01/13/18 Lovastatin 10 mg PO HS 04/07/17 01/13/18 Ipratropium/Albuterol Neb [Duoneb] 3 ml IH Q6HR 08/09/17 01/13/18 traZODone [TraZODone] 50 mg PO HS 08/09/17 01/13/18 Acetaminophen [Tylenol] 650 mg PO Q4HR PRN 10/04/17 01/13/18 Carvedilol 12.5 mg PO BID 10/04/17 01/13/18 Glucagon,Human Recombinant 1 mg IJ NOW PRN 10/04/17 01/13/18 [Glucagen] Phenol [Chloraseptic] 1 spr MM Q2H PRN 10/04/17 01/13/18 Fluticasone Propionate Nasal 2 spr NS DAILY 12/12/17 01/13/18 [Flonase] Fluticasone/Umeclidin/Vilanter 1 puff IH DAILY 12/12/17 01/13/18 [Trelegy Ellipta 100-62.5-25] Furosemide [Lasix] 40 mg PO DAILY 12/12/17 01/13/18 Insulin Regular Human [Humulin R] 0 unit SQ TID PRN 12/12/17 01/13/18 Buspirone HCl [Buspar] 10 mg PO BID 01/11/18 01/13/18 Insulin NPH Human Isophane 30 unit SQ HS 01/11/18 01/13/18 [Novolin N] Insulin NPH Human Isophane 50 unit SQ QAM 01/11/18 01/13/18 [Novolin N] Potassium Chloride [K-Tab ER] 20 meq PO DAILY 01/11/18 01/13/18 Previous Rx's Medication Instructions Recorded Albuterol Sulfate [Albuterol 2 puff IH Q6HR #1 hfa.aer.ad 06/20/17 Inhaler] Allergies Allergy/AdvReac Type Severity Reaction Status Date / Time No Known Drug Allergies Allergy See Verified 08/20/17 15:01 Comments Constitutional: Denies: fever Cardiovascular: Denies: chest pain Respiratory: Denies: cough, dyspnea, wheezes Gastrointestinal: Reports: abdominal pain. Denies: nausea, vomiting Genitourinary: Reports: hematuria. Denies: urgency, dysuria Musculoskeletal: Denies: back pain Integumentary: Denies: rash Neurological: Denies: headache Past Medical History - Past Medical History Medical history: Reports: CHF, COPD, diabetes, hyperlipidemia, hypertension Surgical history: Reports: pacemaker/AICD, other Psychiatric history: Reports: depression - Social History Smoking Status: Former smoker Smokeless Tobacco Status: No Alcohol use: Reports: none Drug use: Reports: none Physical Exam - General Limitations: altered mental status General appearance: in no apparent distress Course Course Narrative: accepted sign out from Dr. Vee and plan is to followup on labs and CT and ase dispotion on results. HE most recently had a ocasio catheter palced from two night ago because for urinary retention, and lastn ight started to develop hematuria with increased suprapubic pain. It apears that on evlaution of prvious workup he had JENN at that time which is slowly improving. - Reevaluation(s) Reevaluation #1: CT scan confirms cystitis, hemodynamically stabe, no need for tranfusion at this time. Minda has JENN and we will admit ot medicne ruddy butterfield. Time: 08:17 - Consultations Consultation #1: discussed case with Dr. kumar and he accepts patient ot his service. Time: 08:28 Vital Signs Temperature 98.1 F 01/13/18 06:12 Pulse Rate 81 01/13/18 06:12 Respiratory Rate 20 01/13/18 06:12 Blood Pressure 115/103 01/13/18 06:12 O2 Sat by Pulse Oximetry 96 01/13/18 06:12 Temperature 98.1 F 01/13/18 06:12 Pulse Rate 81 01/13/18 06:12 Respiratory Rate 20 01/13/18 06:12 Blood Pressure 115/103 01/13/18 06:12 O2 Sat by Pulse Oximetry 96 01/13/18 06:12 Oxygen Delivery Oxygen Delivery Nasal Cannula Medical Decision Making - Lab Data Result diagrams: 01/13/18 07:31 01/13/18 06:52 Lab Results 01/13/18 01/13/18 01/13/18 Range/Units 06:52 06:52 06:53 WBC (4.3-11.1) K/mcL RBC (4.19-5.50) M/mcL Hgb (12.9-16.9) g/dL Hct (37.5-50.1) % MCV (83.0-100.0) fL MCH (28.0-33.3) pg MCHC (31.6-35.5) g/dL RDW (11.5-14.5) % Plt Count (140-400) K/mcL MPV (9.4-12.4) fL Immature Gran % (0-4) % Seg Neutrophils % % Lymphocytes % % Monocytes % % Eosinophils % % Basophils % % Neutrophils # (1.6-8.9) K/mcL Lymphocytes # (0.6-4.6) K/mcL Monocytes # (0.0-1.3) K/mcL Eosinophils # (0.0-0.6) K/mcL Basophils # (0.0-0.2) K/mcL Sodium 138 (136-145) mEq/L Potassium 4.2 (3.5-5.1) mEq/L Chloride 105 (98-107) mEq/L Carbon Dioxide 21 L (23-29) mEq/L BUN 41 H (8-23) mg/dL Creatinine 2.38 H (0.70-1.30) mg/dL Est GFR ( Amer) 33 L (> 60) Est GFR (Non-Af Amer) 28 L (> 60) BUN/Creatinine Ratio 17 (6-26) Glucose 102 (70-105) mg/dL Calculated Osmolality 296 (280-300) Calcium 9.5 (8.6-10.3) mg/dL Total Bilirubin 0.7 (0.3-1.0) mg/dL AST 12 L (13-39) Units/L ALT 9 (7-52) Units/L Alkaline Phosphatase 70 (34-104) Units/L Serum Total Protein 7.6 (6.4-8.9) g/dL Albumin 3.6 (3.5-5.7) g/dL Globulin 4.0 H (2.4-3.5) g/dL Albumin/Globulin Ratio 0.9 L (1.1-2.2) Lipase 5 L (11-82) Units/L Ur Specimen Adequacy Urine Color (Yellow) Urine Clarity (Clear) Urine pH (5.0-8.0) pH Units Ur Specific [place] (1.010-1.025) Urine Protein (Neg-Trace) mg/dL Urine Glucose (UA) (Normal) mg/dL Urine Ketones (Negative) mg/dL Urine Blood (Negative) Urine Nitrite (Negative) Urine Bilirubin (Negative) Urine Urobilinogen (Normal) mg/dL Ur Leukocyte Esterase (Negative) Urine Microscopic RBC (0-3) per hpf Urine Microscopic WBC (0-3) per hpf Ur Squamous Epith Cells (None-Few) per lpf Urine Bacteria (None-Few) per hpf Hyaline Casts (None-Few) per lpf Ur Culture Indicated? (NO) Specimen Rejected Volume 01/13/18 01/13/18 Range/Units 07:30 07:31 WBC 13.1 H D (4.3-11.1) K/mcL RBC 4.60 (4.19-5.50) M/mcL Hgb 11.7 L (12.9-16.9) g/dL Hct 38.3 (37.5-50.1) % MCV 83.3 (83.0-100.0) fL MCH 25.4 L (28.0-33.3) pg MCHC 30.5 L (31.6-35.5) g/dL RDW 18.0 H (11.5-14.5) % Plt Count 230 (140-400) K/mcL MPV 11.0 (9.4-12.4) fL Immature Gran % 1.0 (0-4) % Seg Neutrophils % 70.8 % Lymphocytes % 17.3 % Monocytes % 6.6 % Eosinophils % 3.7 % Basophils % 0.6 % Neutrophils # 9.3 H (1.6-8.9) K/mcL Lymphocytes # 2.3 (0.6-4.6) K/mcL Monocytes # 0.9 (0.0-1.3) K/mcL Eosinophils # 0.5 (0.0-0.6) K/mcL Basophils # 0.1 (0.0-0.2) K/mcL Sodium (136-145) mEq/L Potassium (3.5-5.1) mEq/L Chloride (98-107) mEq/L Carbon Dioxide (23-29) mEq/L BUN (8-23) mg/dL Creatinine (0.70-1.30) mg/dL Est GFR ( Amer) (> 60) Est GFR (Non-Af Amer) (> 60) BUN/Creatinine Ratio (6-26) Glucose (70-105) mg/dL Calculated Osmolality (280-300) Calcium (8.6-10.3) mg/dL Total Bilirubin (0.3-1.0) mg/dL AST (13-39) Units/L ALT (7-52) Units/L Alkaline Phosphatase (34-104) Units/L Serum Total Protein (6.4-8.9) g/dL Albumin (3.5-5.7) g/dL Globulin (2.4-3.5) g/dL Albumin/Globulin Ratio (1.1-2.2) Lipase (11-82) Units/L Ur Specimen Adequacy See below A Urine Color Red A (Yellow) Urine Clarity Cloudy A (Clear) Urine pH 7.0 (5.0-8.0) pH Units Ur Specific [place] 1.027 H (1.010-1.025) Urine Protein >=1000 H (Neg-Trace) mg/dL Urine Glucose (UA) Normal (Normal) mg/dL Urine Ketones Trace H (Negative) mg/dL Urine Blood Large H (Negative) Urine Nitrite Negative (Negative) Urine Bilirubin Small H (Negative) Urine Urobilinogen Normal (Normal) mg/dL Ur Leukocyte Esterase Moderate H (Negative) Urine Microscopic RBC 0-3 (0-3) per hpf Urine Microscopic WBC 0-3 (0-3) per hpf Ur Squamous Epith Cells None Seen (None-Few) per lpf Urine Bacteria None Seen (None-Few) per hpf Hyaline Casts None Seen (None-Few) per lpf Ur Culture Indicated? YES A (NO) Specimen Rejected
--- NOTE | 2018-01-13 09:43 | Internal Med History&Physical ---
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 Patient not able to give history due to altered mental status and family not present at bedside but per ER report patient presented from the [facility] due to altered mental status and found to have bleeding from urinary catheter. Patient has had a history of urinary retention with recurrent pseudomonas UTI and has been seen by urology in the past. In the ER patient also found to have a suspected UTI with pyuria on urinalysis in addition to acute renal failure; CT of the abdomen/pelvis showed significant urinary bladder wall thickening with perivesical inflammation/edema (cystitis). Patient will be admitted to medical surgical floor for altered mental status secondary to UTI with urinary retention/hematuria and acute renal failure. Past Med Surg Social Fam HX - Past Medical History Medical history: CHF, COPD, diabetes, hyperlipidemia, hypertension Psychiatric history: depression - Past Surgical History Surgical History: pacemaker/AICD, other Additional surgical history: defibrilator - Social History Smoking Status: Former smoker Smokeless Tobacco Status: No Alcohol use: none Drug use: none - Family History Mother Living Status: Hx Family Cancer: Yes (brain tumor) Father Living Status: Hx Family Respiratory Disorders: Yes (COPD) Hx Family Endocrine Disorder: Yes (DM) Internal Medicine - H&P: Meds Aspirin [Lo-Dose Aspirin EC] 81 mg PO DAILY 12/10/16 [History] Gabapentin [Neurontin] 300 mg PO BID 12/10/16 [History] Sertraline [Zoloft] 100 mg PO DAILY 12/10/16 [History] Lovastatin 10 mg PO HS 04/07/17 [History] Albuterol Sulfate [Albuterol Inhaler] 2 puff IH Q6HR #1 hfa.[email or web address] 06/20/17 [Rx] Ipratropium/Albuterol Neb [Duoneb] 3 ml IH Q6HR 08/09/17 [History] traZODone [TraZODone] 50 mg PO HS 08/09/17 [History] Acetaminophen [Tylenol] 650 mg PO Q4HR PRN 10/04/17 [History] Carvedilol 12.5 mg PO BID 10/04/17 [History] Glucagon,Human Recombinant [Glucagen] 1 mg IJ NOW PRN 10/04/17 [History] Phenol [Chloraseptic] 1 spr MM Q2H PRN 10/04/17 [History] Fluticasone Propionate Nasal [Flonase] 2 spr NS DAILY 12/12/17 [History] Fluticasone/Umeclidin/Vilanter [Trelegy Ellipta 100-62.5-25] 1 puff IH DAILY [History] Furosemide [Lasix] 40 mg PO DAILY 12/12/17 [History] Insulin Regular Human [Humulin R] 0 unit SQ TID PRN 12/12/17 [History] Buspirone HCl [Buspar] 10 mg PO BID 01/11/18 [History] Insulin NPH Human Isophane [Novolin N] 30 unit SQ HS 01/11/18 [History] Insulin NPH Human Isophane [Novolin N] 50 unit SQ QAM 01/11/18 [History] Potassium Chloride [K-Tab ER] 20 meq PO DAILY 01/11/18 [History] 3 Allergy/AdvReac Type Severity Reaction Status Date / Time No Known Drug Allergies Allergy See Verified 08/20/17 15:01 Comments ROS unobtainable: due to mental status All Systems PM: A 10-system review of systems was performed and is negative for pertinent findings except as documented above in the HPI. - Constitutional Vitals: Temp Pulse Resp BP Pulse Ox 98.1 F 81 18 123/81 95 01/13/18 06:12 01/13/18 08:45 01/13/18 08:45 01/13/18 08:45 01/13/18 08:45 General appearance: Present: A&O X 1, no acute distress. Absent: answers questions appropriately - Respiratory Respiratory exam: Present: CTAB. Absent: accessory muscle use, rales, rhonchi, wheezes - Cardiovascular Cardiovascular exam: Present: RRR, +S1, +S2. Absent: diastolic murmur, gallop, rubs, systolic murmur - GI/Abdominal GI/Abdominal exam: Present: normal bowel sounds, soft, no peritoneal signs. Absent: distended, tenderness - Extremities Exam Extremities exam: Absent: pedal edema - Neurological Exam Neurological exam: Absent: oriented X3 - Skin Skin exam: Present: normal color Internal Med - H&P Results - Labs CBC & Chem 7: 01/13/18 07:31 01/13/18 06:52 - Assessment and plan (1) Mental status change Current Visit: Yes Status: Acute Assessment and plan: Suspect secondary to UTI Management as below Qualifiers: Altered mental status type: unspecified Qualified Code(s): R41.82 - Altered mental status, unspecified (2) UTI (urinary tract infection) Current Visit: No Status: Acute Assessment and plan: Patient with pyuria on urinalysis with history of recurrent pseudomonas urinary tract infections. Based on past sensitivities will start patient on IV Zosyn Qualifiers: Urinary tract infection type: acute cystitis Hematuria presence: without hematuria Qualified Code(s): N30.00 - Acute cystitis without hematuria (3) Urinary retention Current Visit: No Status: Acute Assessment and plan: Patient with history of urinary retention and has been seen by urology in the past Urology consulted with recommendations to maintain Harper catheter Appreciate any additional recommendations (4) Hematuria Current Visit: Yes Status: Acute Assessment and plan: Patient presented to the ER for hematuria CT of the abdomen/pelvis showed significant urinary bladder wall thickening with perivesical inflammation/edema (cystitis). Urology consulted and appreciate recommendations Qualifiers: Hematuria type: gross Qualified Code(s): R31.0 - Gross hematuria (5) Cystitis Current Visit: Yes Status: Acute Assessment and plan: CT findings as above and urology following (6) JENN (acute kidney injury) Current Visit: No Status: Acute Assessment and plan: Patient with creatinine of 2.38 with a GFR of 28 Will give gentle IV fluids given patient's heart failure history (7) Systolic and diastolic CHF, chronic Current Visit: Yes Status: Acute Assessment and plan: Patient euvolemic on exam; continue home medication (8) Morbid obesity with BMI of 40.0-44.9, adult Current Visit: No Status: Acute Assessment and plan: Lifestyle modification (9) DVT prophylaxis Current Visit: No Status: Acute Assessment and plan: SCDs - Time Spent With Patient Total time spent is greater than 50% in coordination of care (as documented) at patient's floor/unit and/or counseling patient:
[2018-01-13] MEDS ORDERED: NON-FORMULARY MEDICATION 1 EACH EACH (Glucagon,Human Recombinant [Glucagen] 1 MG) IJ PRN (10:17)
[2018-01-13] MEDS ORDERED: Naloxone 0.4 MG/ML INJ IVP PRN (10:20)
[2018-01-13] MEDS ORDERED: D5% in Water 1,000 ML IVC PRN (10:44)
[2018-01-13] MEDS ORDERED: Dextrose Gel 15 GM/37.5 ML TUBE PO PRN ×2 (10:44)
[2018-01-13] MEDS ORDERED: *HR* Dextrose 50 % in Water (Syg) 50 ML SYRINGE IVP PRN (10:44)
[2018-01-13] MEDS ORDERED: hydrOXYzine pamoate 25 MG CAPSULE PO ONE (11:19)
[2018-01-13] MEDS: 0.9 % Sodium Chloride 1,000 ML IVC SCH (11:35)
[2018-01-13] MEDS: Ipratropium/Albuterol Neb 3 ML IH SCH ×2 (15:35→22:11)
[2018-01-13] MEDS: Piperacillin/Tazobactam 3.375 GM in 0.9 % Sodium Chloride Mini Bag 100 ML IVPB SCH (16:26)
[2018-01-13] MEDS: Insulin LISPRO 300 UNITS/3 ML VIAL SQ SCH ×2 (17:45→20:51)
--- NOTE | 2018-01-13 19:08 | Urology - Consult Note ---
Date of Encounter: 01/13/18 Time of Encounter: 19:06 - Assessment and Plan (1) Urinary retention Current Visit: Yes Status: Acute Assessment and plan: Do not remove catheter. Catheter should be removed under urology guidance likely in outpatient setting. (2) UTI (urinary tract infection) Current Visit: No Status: Acute Assessment and plan: Patient has had at least 2 recent Pseudomonas UTIs with resistance. I suspect the current infection will also be Pseudomonas. Patient is on Zosyn which is sensitive. The patient's incomplete emptying, complicated infection and antibiotic resistance likely prevented him from completely clearing the previous infection. At this point I recommend at least 2 weeks of culture specific antibiotics. We will keep catheter drainage during this time. Catheter should only be removed in the urology office as there is concern for long-standing obstruction, incomplete emptying, or neurogenic bladder. I personally reviewed the CT scan no evidence of disease process requiring surgical intervention at this time Qualifiers: Urinary tract infection type: acute cystitis Hematuria presence: without hematuria Qualified Code(s): N30.00 - Acute cystitis without hematuria Urology CN:HPI Consult date: 01/13/18 Reason for consult Urology: Other History of present illness: Patient recently seen by Dr. Concepcion at the end of November for urinary retention. Catheter placed with return of 2 L of urine. Cause of retention was unclear at the time of the consult. Appears to catheter had been removed after the hospitalization and he returns to the ER today with acute illness. Harper catheter replaced. He has had multiple Pseudomonas UTIs. CT scan shows a severely thickened bladder wall with mild hydroureter bilaterally. Patient denies problems urinating. States he wants to go home. Past Med Surg Social Fam HX - Past Medical History Medical history: CHF, COPD, diabetes, hyperlipidemia, hypertension Psychiatric history: depression - Past Surgical History Surgical History: pacemaker/AICD, other Additional surgical history: defibrilator - Social History Smoking Status: Former smoker Smokeless Tobacco Status: No Alcohol use: none Drug use: none - Family History Mother Living Status: Hx Family Cancer: Yes (brain tumor) Father Living Status: Hx Family Respiratory Disorders: Yes (COPD) Hx Family Endocrine Disorder: Yes (DM) Medications and Allergies Aspirin [Lo-Dose Aspirin EC] 81 mg PO DAILY 12/10/16 [History] Gabapentin [Neurontin] 300 mg PO BID 12/10/16 [History] Sertraline [Zoloft] 100 mg PO DAILY 12/10/16 [History] Lovastatin 10 mg PO HS 04/07/17 [History] Albuterol Sulfate [Albuterol Inhaler] 2 puff IH Q6HR #1 hfa.aer.ad 06/20/17 [Rx] Ipratropium/Albuterol Neb [Duoneb] 3 ml IH Q6HR 08/09/17 [History] traZODone [TraZODone] 50 mg PO HS 08/09/17 [History] Acetaminophen [Tylenol] 650 mg PO Q4HR PRN 10/04/17 [History] Carvedilol 12.5 mg PO BID 10/04/17 [History] Glucagon,Human Recombinant [Glucagen] 1 mg IJ NOW PRN 10/04/17 [History] Phenol [Chloraseptic] 1 spr MM Q2H PRN 10/04/17 [History] Fluticasone Propionate Nasal [Flonase] 2 spr NS DAILY 12/12/17 [History] Fluticasone/Umeclidin/Vilanter [Trelegy Ellipta 100-62.5-25] 1 puff IH DAILY [History] Furosemide [Lasix] 40 mg PO DAILY 12/12/17 [History] Insulin Regular Human [Humulin R] 0 unit SQ TID PRN 12/12/17 [History] Buspirone HCl [Buspar] 10 mg PO BID 01/11/18 [History] Insulin NPH Human Isophane [Novolin N] 30 unit SQ HS 01/11/18 [History] Insulin NPH Human Isophane [Novolin N] 50 unit SQ QAM 01/11/18 [History] Potassium Chloride [K-Tab ER] 20 meq PO DAILY 01/11/18 [History] 3 Allergy/AdvReac Type Severity Reaction Status Date / Time No Known Drug Allergies Allergy See Verified 08/20/17 15:01 Comments Review of Systems - Constitutional fatigue, fever(s), malaise - EENT Nose, mouth and throat: no dizziness - Cardiovascular no chest pain - Respiratory no cough - Gastrointestinal no abdominal pain, no nausea - Genitourinary difficulty urinating, no hematuria - Musculoskeletal back pain - Integumentary no erythema - Neurological no confusion - Psychiatric no anxiety - Hematologic/Lymphatic no easy bleeding - Allergic/Immunologic no throat swelling Exam Initial Vital Signs Temp Pulse Resp BP Pulse Ox 98.1 F 81 20 115/103 96 01/13/18 06:12 01/13/18 06:12 01/13/18 06:12 01/13/18 06:12 01/13/18 06:12 - General physical appearance Present: no distress, no pain, chronically ill - Eyes Present: PERRL, conjunctiva is clear - ENT Present: normal nares, normal mucosa - Neck Present: no masses, no lymphadenopathy - Respiratory Present: normal respiratory effort - Cardiovascular Cardiovascular exam IM: RRR - Abdomen Abdomen: Present: soft. Absent: suprapubic tenderness - Integumentary Present: no rash. Absent: no abnormal pigmentation - Neurologic Present: normal coordination, disoriented, confused - Additional Findings Morbidly obese male. Answers most questions appropriately but also talking about inappropriate subject matter Urology Results - Labs 01/13/18 07:31 01/13/18 06:52 Abnormal lab results WBC 13.1 K/mcL (4.3-11.1) H D 01/13/18 07:31 Hgb 11.7 g/dL (12.9-16.9) L 01/13/18 07:31 MCH 25.4 pg (28.0-33.3) L 01/13/18 07:31 MCHC 30.5 g/dL (31.6-35.5) L 01/13/18 07:31 RDW 18.0 % (11.5-14.5) H 01/13/18 07:31 Neutrophils # 9.3 K/mcL (1.6-8.9) H 01/13/18 07:31 Carbon Dioxide 21 mEq/L (23-29) L 01/13/18 06:52 BUN 41 mg/dL (8-23) H 01/13/18 06:52 Creatinine 2.38 mg/dL (0.70-1.30) H 01/13/18 06:52 Est GFR ( Amer) 33 (> 60) L 01/13/18 06:52 Est GFR (Non-Af Amer) 28 (> 60) L 01/13/18 06:52 POC Glucose 179 mg/dL (70-99) H 01/13/18 17:20 AST 12 Units/L (13-39) L 01/13/18 06:52 Globulin 4.0 g/dL (2.4-3.5) H 01/13/18 06:52 Albumin/Globulin Ratio 0.9 (1.1-2.2) L 01/13/18 06:52 Lipase 5 Units/L (11-82) L 01/13/18 06:52 Ur Specimen Adequacy See below A 01/13/18 07:30 Urine Color Red (Yellow) A 01/13/18 07:30 Urine Clarity Cloudy (Clear) A 01/13/18 07:30 Ur Specific [place] 1.027 (1.010-1.025) H 01/13/18 07:30 Urine Protein >=1000 mg/dL (Neg-Trace) H 01/13/18 07:30 Urine Ketones Trace mg/dL (Negative) H 01/13/18 07:30 Urine Blood Large (Negative) H 01/13/18 07:30 Urine Bilirubin Small (Negative) H 01/13/18 07:30 Ur Leukocyte Esterase Moderate (Negative) H 01/13/18 07:30 Ur Culture Indicated? YES (NO) A 01/13/18 07:30 All other labs normal. Consult Discharge Plan - Plan
[2018-01-13] MEDS: Gabapentin 300 MG CAPSULE PO SCH (20:47)
[2018-01-13] MEDS: traZODone 50 MG TABLET PO SCH (20:47)
[2018-01-13] MEDS: Insulin DETEMIR 100 UNIT/ML X5UNITS SQ SCH (20:51)
[2018-01-13] MEDS ORDERED: Insulin NPH 100 UNIT/ML (x5UNIT) SQ SCH (21:00)
[2018-01-14] MEDS: 0.9 % Sodium Chloride 1,000 ML IVC SCH (00:39)
[2018-01-14] MEDS: Piperacillin/Tazobactam 3.375 GM in 0.9 % Sodium Chloride Mini Bag 100 ML IVPB SCH ×3 (00:39→15:50)
[2018-01-14] MEDS: Ipratropium/Albuterol Neb 3 ML IH SCH ×4 (03:40→22:03)
[2018-01-14 04:25] LABS: Basophils # 0.1 K/mcL (0.0-0.2); Basophils % 0.5 %; Eosinophils # 0.6 K/mcL (0.0-0.6); Hematocrit 34.2 % (37.5-50.1); Hemoglobin 10.6 g/dL (12.9-16.9); Lymphocytes # 2.5 K/mcL (0.6-4.6); Mean Corpuscular Hemoglobin 25.5 pg (28.0-33.3); Mean Corpuscular Volume 82.4 fL (83.0-100.0); Mean Platelet Volume 10.3 fL (9.4-12.4); Monocytes % 8.7 %; Neutrophils # 6.8 K/mcL (1.6-8.9); Platelet Count 205 K/mcL (140-400); Red Blood Count 4.15 M/mcL (4.19-5.50); Red Cell Distribution Width 17.8 % (11.5-14.5); Segmented Neutrophils % 61.8 %
[2018-01-14 04:43] LABS: Potassium 3.6 mEq/L (3.5-5.1)
[2018-01-14] MEDS: Nystatin POWDER 30 GM BOTTLE TP SCH ×4 (04:59→19:53)
[2018-01-14] MEDS: Gabapentin 300 MG CAPSULE PO SCH ×2 (07:53→19:54)
[2018-01-14] MEDS: Aspirin Enteric Coated 81 MG Tablet PO SCH (07:53)
[2018-01-14] MEDS: Insulin LISPRO 300 UNITS/3 ML VIAL SQ SCH ×4 (07:54→19:55)
[2018-01-14] MEDS: Insulin DETEMIR 100 UNIT/ML X5UNITS SQ SCH ×2 (07:59→19:54)
[2018-01-14] MEDS ORDERED: Insulin NPH 100 UNIT/ML (x5UNIT) SQ SCH (09:00)
[2018-01-14] MEDS ORDERED: (Fluticasone/Umeclidin/Vilanter [Trelegy Ellipta 100- IH SCH (09:00)
[2018-01-14] MEDS: Fluticasone Propionate Nasal 50 MCG/SPRAY BOTTLE NS SCH (10:59)
[2018-01-14] MEDS ORDERED: Cholestyramine 4 GM POWD.PACK PO ONE (14:21)
[2018-01-14] MEDS: Tiotropium 18 MCG inhalation IH SCH (16:05)
[2018-01-14] MEDS: traZODone 50 MG TABLET PO SCH (19:54)
[2018-01-14] MEDS: Budesonide/Formoterol 80/4.5 MDI IH SCH (22:03)
[2018-01-15] MEDS: Piperacillin/Tazobactam 3.375 GM in 0.9 % Sodium Chloride Mini Bag 100 ML IVPB SCH ×4 (00:27→23:59)
[2018-01-15] MEDS: Ipratropium/Albuterol Neb 3 ML IH SCH ×3 (03:30→15:41)
[2018-01-15 04:23] LABS: Basophils # 0.1 K/mcL (0.0-0.2); Basophils % 0.5 %; Eosinophils # 0.8 K/mcL (0.0-0.6); Eosinophils % 7.4 %; Hematocrit 35.6 % (37.5-50.1); Hemoglobin 11.2 g/dL (12.9-16.9); Immature Granulocytes % 1.1 % (0-4); Lymphocytes # 2.2 K/mcL (0.6-4.6); Lymphocytes % 20.7 %; Mean Corpuscular HGB Conc 31.5 g/dL (31.6-35.5); Mean Corpuscular Hemoglobin 26.2 pg (28.0-33.3); Mean Corpuscular Volume 83.2 fL (83.0-100.0); Mean Platelet Volume 10.9 fL (9.4-12.4); Monocytes # 0.8 K/mcL (0.0-1.3); Monocytes % 7.4 %; Neutrophils # 6.6 K/mcL (1.6-8.9); Platelet Count 213 K/mcL (140-400); Red Blood Count 4.28 M/mcL (4.19-5.50); Red Cell Distribution Width 17.5 % (11.5-14.5); Segmented Neutrophils % 62.9 %
[2018-01-15 04:29] LABS: Magnesium 1.8 mg/dL (1.6-2.6); Potassium 3.5 mEq/L (3.5-5.1)
--- NOTE | 2018-01-15 05:47 | Internal Med Progress Note ---
Date of Encounter: 01/14/18 Time of Encounter: 16:30 - Assessment and plan (1) Mental status change Status: Resolved Qualifiers: Altered mental status type: unspecified Qualified Code(s): R41.82 - Altered mental status, unspecified (2) UTI (urinary tract infection) Status: Acute Qualifiers: Urinary tract infection type: acute cystitis Hematuria presence: without hematuria Qualified Code(s): N30.00 - Acute cystitis without hematuria (3) Urinary retention Status: Acute (4) JENN (acute kidney injury) Status: Acute (5) T2DM (type 2 diabetes mellitus) Status: Acute Qualifiers: Diabetes mellitus exterminator insulin use: with exterminator use Diabetes mellitus complication status: without complication Qualified Code(s): E11.9 - Type 2 diabetes mellitus without complications; Z79.4 - skilled nursing (current) use of insulin - Time Spent With Patient Total time spent is greater than 50% in coordination of care (as documented) at patient's floor/unit and/or counseling patient: 25 - 35 minutes - Subjective Interval history: .. The patient feels better. His mental status he is close to his baseline. Denies chest pain. Denies difficulty breathing, coughing and wheezing. He is on DuoNeb inhalations. Denies abdominal pain, nausea and vomiting. He has Harper catheter in. OBJECTIVE: .. Skin: Free of rash and discoloration ENMT: Oral/pharyngeal mucosa is normal in appearance. Eyes: Sclera is white. There is no discharge from eyes. Respiratory: Normal breath sounds; no crackles or wheezes. CV: Heart is regular; no gallop or murmur. GI: Abdomen is soft and not tender. There is no palpable mass or visceromegaly. : Harper catheter is in. It is draining normal color urine. Neuro: There is no focal deficits. ASSESSMENT AND PLAN: .. Urinary tract infection/urinary retention/altered mental status. He is on IV Zosyn. Harper catheter will stay in. His altered mental status resolved. Acute kidney injury. Better. His creatinine today is 2.26; was 2.73 yesterday.We will continue IV fluids. We will continue treatments for urinary tract infection/urinary retention. Type 2 diabetes mellitus. Under fair control. We will continue diabetic diet with Levemir and when necessary Humalog. COPD. Under fair control. Will continue nebulizer treatments with DuoNeb. I am going to start Symbicort. - Constitutional Vitals: Temp Pulse Resp BP Pulse Ox 98.0 F 80 16 110/65 97 01/15/18 04:54 01/15/18 04:54 01/15/18 04:54 01/15/18 04:54 01/15/18 04:54 General appearance: Present: A&O X 1, no acute distress. Absent: answers questions appropriately Internal Medicine: Result - Labs CBC & Chem 7: 01/15/18 03:04 01/17/18 04:44 Labs: Short CBC 01/15/18 Range/Units 03:04 WBC 10.5 (4.3-11.1) K/mcL Hgb 11.2 L (12.9-16.9) g/dL Hct 35.6 L (37.5-50.1) % Plt Count 213 (140-400) K/mcL Neutrophils # 6.6 (1.6-8.9) K/mcL BMP 01/15/18 03:04 Sodium 136 Potassium 3.5 Chloride 105 Carbon Dioxide 18 L BUN 32 H Creatinine 1.93 H Glucose 98 Calcium 9.0 - VTE Documentation of Mechanical Device: Intermittent pneumatic compression device Consult Discharge Plan - Plan Additional Instructions: Oxygen at 2 L/m, all the time. Harper catheter will be removed in about 10 days by his urologist, Dr. Denson. Referrals: Campos Concepcion MD [Partnered Physician] - 02/07/18 8:15 am Ander Blankenship MD [Primary Care Provider] - (patient is from [place]) Prescriptions: Cefdinir [Omnicef] 300 mg PO BID #20 capsule Gabapentin [Neurontin] 300 mg PO BID #60 capsule Gabapentin [Neurontin] 300 mg PO BID #60 capsule
[2018-01-15] MEDS: Insulin LISPRO 300 UNITS/3 ML VIAL SQ SCH ×4 (08:05→20:14)
[2018-01-15] MEDS: Aspirin Enteric Coated 81 MG Tablet PO SCH (08:18)
[2018-01-15] MEDS: Gabapentin 300 MG CAPSULE PO SCH ×2 (08:18→20:26)
[2018-01-15] MEDS: Nystatin POWDER 30 GM BOTTLE TP SCH ×3 (08:19→20:26)
[2018-01-15] MEDS: Fluticasone Propionate Nasal 50 MCG/SPRAY BOTTLE NS SCH (08:20)
[2018-01-15] MEDS: Budesonide/Formoterol 80/4.5 MDI IH SCH ×2 (09:51→22:39)
[2018-01-15] MEDS: Tiotropium 18 MCG inhalation IH SCH (09:55)
[2018-01-15] MEDS: Acetaminophen 325 MG TABLET PO PRN ×2 (10:45→17:41)
[2018-01-15] MEDS: Insulin DETEMIR 100 UNIT/ML X5UNITS SQ SCH ×2 (10:45→20:26)
[2018-01-15] MEDS: 0.9 % Sodium Chloride w KCl 20 MEQ/1,000 ML MLS IVC SCH (17:39)
[2018-01-15] MEDS: traZODone 50 MG TABLET PO SCH (20:26)
--- NOTE | 2018-01-15 23:36 | Internal Med Progress Note ---
Date of Encounter: 01/15/18 Time of Encounter: 23:36 - Assessment and plan (1) Mental status change Status: Resolved Qualifiers: Altered mental status type: unspecified Qualified Code(s): R41.82 - Altered mental status, unspecified (2) UTI (urinary tract infection) Status: Acute Qualifiers: Urinary tract infection type: acute cystitis Hematuria presence: without hematuria Qualified Code(s): N30.00 - Acute cystitis without hematuria (3) Urinary retention Status: Acute (4) JENN (acute kidney injury) Status: Acute (5) T2DM (type 2 diabetes mellitus) Status: Acute Qualifiers: Diabetes mellitus computer support specialist instructor insulin use: with computer support specialist instructor use Diabetes mellitus complication status: without complication Qualified Code(s): E11.9 - Type 2 diabetes mellitus without complications; Z79.4 - USP (current) use of insulin (6) Acute hypokalemia Status: Acute - Time Spent With Patient Total time spent is greater than 50% in coordination of care (as documented) at patient's floor/unit and/or counseling patient: 25 - 35 minutes - Subjective Interval history: .. His mental status he is baseline. Denies chest pain. Denies difficulty breathing, coughing and wheezing. He is 99% on room air. Denies abdominal pain , nausea and vomiting. He has Harper catheter in. OBJECTIVE: .. Skin: Free of rash and discoloration Respiratory: Normal breath sounds; no crackles or wheezes. CV: Heart is regular; no gallop or murmur. GI: Abdomen is soft and not tender. There is no palpable mass or visceromegaly. : Harper catheter is in. It is draining normal color urine. Neuro: There is no focal deficits. ASSESSMENT AND PLAN: .. Urinary tract infection/urinary retention/altered mental status. He is on IV Zosyn. Harper catheter will stay in. His altered mental status resolved. See urology consult. Acute kidney injury. Better. His creatinine is 1.93; 2.38 yesterday.We will continue IV fluids. We will continue treatments for urinary tract infection/ urinary retention. Type 2 diabetes mellitus. Under fair control. We will continue diabetic diet with Levemir and when necessary Humalog. Acute hypokalemia. His potassium is 3.5; 3.6 yesterday. Will start normal saline with addition of potassium chloride instead of regular normal saline NOTES. BMP and magnesium in the morning. - Constitutional Vitals: Temp Pulse Resp BP Pulse Ox 98.4 F 71 16 146/82 99 01/15/18 19:55 01/15/18 19:55 01/15/18 22:40 01/15/18 19:55 01/15/18 22:40 General appearance: Present: A&O X 1, no acute distress. Absent: answers questions appropriately Internal Medicine: Result - Labs CBC & Chem 7: 01/15/18 03:04 01/17/18 04:44 Labs: Short CBC 01/15/18 Range/Units 03:04 WBC 10.5 (4.3-11.1) K/mcL Hgb 11.2 L (12.9-16.9) g/dL Hct 35.6 L (37.5-50.1) % Plt Count 213 (140-400) K/mcL Neutrophils # 6.6 (1.6-8.9) K/mcL BMP 01/15/18 03:04 Sodium 136 Potassium 3.5 Chloride 105 Carbon Dioxide 18 L BUN 32 H Creatinine 1.93 H Glucose 98 Calcium 9.0 - VTE Documentation of Mechanical Device: Intermittent pneumatic compression device Consult Discharge Plan - Plan Additional Instructions: Oxygen at 2 L/m, all the time. Harper catheter will be removed in about 10 days by his urologist, Dr. Denson. Referrals: Campos Concepcion MD [Partnered Physician] - 02/07/18 8:15 am Ander Blankenship MD [Primary Care Provider] - (patient is from [place]) Prescriptions: Cefdinir [Omnicef] 300 mg PO BID #20 capsule Gabapentin [Neurontin] 300 mg PO BID #60 capsule Gabapentin [Neurontin] 300 mg PO BID #60 capsule
[2018-01-16 04:08] LABS: Calcium 8.7 mg/dL (8.6-10.3); Magnesium 1.9 mg/dL (1.6-2.6); Potassium 3.8 mEq/L (3.5-5.1)
[2018-01-16] MEDS: 0.9 % Sodium Chloride w KCl 20 MEQ/1,000 ML MLS IVC SCH ×2 (07:49→15:00)
[2018-01-16] MEDS: Insulin LISPRO 300 UNITS/3 ML VIAL SQ SCH ×4 (07:51→21:48)
[2018-01-16] MEDS: Aspirin Enteric Coated 81 MG Tablet PO SCH (10:03)
[2018-01-16] MEDS: Piperacillin/Tazobactam 3.375 GM in 0.9 % Sodium Chloride Mini Bag 100 ML IVPB SCH ×2 (10:03→18:10)
[2018-01-16] MEDS: Fluticasone Propionate Nasal 50 MCG/SPRAY BOTTLE NS SCH (10:03)
[2018-01-16] MEDS: Gabapentin 300 MG CAPSULE PO SCH ×2 (10:03→21:42)
[2018-01-16] MEDS: Nystatin POWDER 30 GM BOTTLE TP SCH ×3 (10:13→21:42)
[2018-01-16] MEDS: Tiotropium 18 MCG inhalation IH SCH (12:06)
[2018-01-16] MEDS: Budesonide/Formoterol 80/4.5 MDI IH SCH ×2 (12:06→20:34)
[2018-01-16] MEDS: Acetaminophen 325 MG TABLET PO PRN (12:16)
[2018-01-16] MEDS: Insulin DETEMIR 100 UNIT/ML X5UNITS SQ SCH ×2 (12:16→21:42)
[2018-01-16] MEDS: traZODone 50 MG TABLET PO SCH (21:42)
--- NOTE | 2018-01-16 23:24 | Internal Med Progress Note ---
Date of Encounter: 01/16/18 Time of Encounter: 23:24 - Assessment and plan (1) Mental status change Status: Resolved Qualifiers: Altered mental status type: unspecified Qualified Code(s): R41.82 - Altered mental status, unspecified (2) UTI (urinary tract infection) Status: Acute Qualifiers: Urinary tract infection type: acute cystitis Hematuria presence: without hematuria Qualified Code(s): N30.00 - Acute cystitis without hematuria (3) Urinary retention Status: Acute (4) JENN (acute kidney injury) Status: Acute (5) T2DM (type 2 diabetes mellitus) Status: Acute Qualifiers: Diabetes mellitus manager intermediate insulin use: with manager intermediate use Diabetes mellitus complication status: without complication Qualified Code(s): E11.9 - Type 2 diabetes mellitus without complications; Z79.4 - alf (current) use of insulin (6) Acute hypokalemia Status: Acute - Time Spent With Patient Total time spent is greater than 50% in coordination of care (as documented) at patient's floor/unit and/or counseling patient: 25 - 35 minutes - Subjective Interval history: .. He feels weak. He is not able to ambulate on his own. His mental status he is baseline. Denies chest pain. Denies difficulty breathing, coughing and wheezing. He is 99% on room air. Denies abdominal pain, nausea and vomiting. He has Harper catheter in. OBJECTIVE: .. Skin: Free of rash and discoloration Respiratory: Normal breath sounds; no crackles or wheezes. CV: Heart is regular; no gallop or murmur. GI: Abdomen is soft and not tender. There is no palpable mass or visceromegaly. : Harper catheter is in. It is draining normal color urine. Neuro: There is no focal deficits. ASSESSMENT AND PLAN: .. Urinary tract infection/urinary retention/altered mental status. He is on IV Zosyn. Harper catheter will stay in. His altered mental status resolved. See urology consult. Acute kidney injury. Better. His creatinine is 1.86; it was 1.93 yesterday. We will continue IV fluids With potassium chloride. We will continue treatments for urinary tract infection/urinary retention. Type 2 diabetes mellitus. Under fair control. We will continue diabetic diet with Levemir and when necessary Humalog. Acute hypokalemia. His potassium is 3.8; 3.5 yesterday. Will start normal saline with addition of potassium chloride instead of regular normal saline. NOTES. BMP and magnesium in the morning. - Constitutional Vitals: Temp Pulse Resp BP Pulse Ox 97.7 F 69 16 141/84 97 01/16/18 21:16 01/16/18 21:16 01/16/18 21:16 01/16/18 21:16 01/16/18 21:16 General appearance: Present: A&O X 1, no acute distress. Absent: answers questions appropriately Internal Medicine: Result - Labs CBC & Chem 7: 01/15/18 03:04 01/17/18 04:44 Labs: BMP 01/16/18 03:27 Sodium 138 Potassium 3.8 Chloride 107 Carbon Dioxide 24 BUN 28 H Creatinine 1.86 H Glucose 100 Calcium 8.7 - VTE Documentation of Mechanical Device: Intermittent pneumatic compression device Consult Discharge Plan - Plan Additional Instructions: Oxygen at 2 L/m, all the time. Harper catheter will be removed in about 10 days by his urologist, Dr. Denson. Referrals: Campos Concepcion MD [Partnered Physician] - 02/07/18 8:15 am Ander Blankenship MD [Primary Care Provider] - (patient is from [place]) Prescriptions: Cefdinir [Omnicef] 300 mg PO BID #20 capsule Gabapentin [Neurontin] 300 mg PO BID #60 capsule Gabapentin [Neurontin] 300 mg PO BID #60 capsule
[2018-01-17] MEDS: Piperacillin/Tazobactam 3.375 GM in 0.9 % Sodium Chloride Mini Bag 100 ML IVPB SCH ×2 (01:33→08:55)
[2018-01-17] MEDS: Acetaminophen 325 MG TABLET PO PRN (04:48)
[2018-01-17] MEDS: 0.9 % Sodium Chloride w KCl 20 MEQ/1,000 ML MLS IVC SCH (04:48)
[2018-01-17 05:35] LABS: Calcium 8.7 mg/dL (8.6-10.3); Magnesium 1.8 mg/dL (1.6-2.6)
[2018-01-17] MEDS: Budesonide/Formoterol 80/4.5 MDI IH SCH (07:43)
[2018-01-17] MEDS: Tiotropium 18 MCG inhalation IH SCH (07:43)
[2018-01-17] MEDS: Insulin LISPRO 300 UNITS/3 ML VIAL SQ SCH ×2 (08:47→12:04)
[2018-01-17] MEDS: Gabapentin 300 MG CAPSULE PO SCH (08:55)
[2018-01-17] MEDS: Aspirin Enteric Coated 81 MG Tablet PO SCH (08:55)
[2018-01-17] MEDS: Nystatin POWDER 30 GM BOTTLE TP SCH (08:57)
[2018-01-17] MEDS: Insulin DETEMIR 100 UNIT/ML X5UNITS SQ SCH (08:57)
[2018-01-17] MEDS: Fluticasone Propionate Nasal 50 MCG/SPRAY BOTTLE NS SCH (08:58)
[2018-01-17 11:03] VITALS: BP 127/77
--- NOTE | 2018-01-17 12:16 | Discharge Summary ---
- NOTES TO OUTPATIENT PROVIDER Notes to Outpatient Provider: He needs 10 more days of by mouth Omnicef. Harper catheter will be removed in the urology office - in about 10 days. His mental status is baseline again. Date of Encounter: 01/17/18 Time of Encounter: 12:11 - Discharge Diagnosis (1) Mental status change Priority: Primary Status: Resolved Qualifiers: Altered mental status type: unspecified Qualified Code(s): R41.82 - Altered mental status, unspecified (2) UTI (urinary tract infection) Priority: Primary Status: Acute Qualifiers: Urinary tract infection type: acute cystitis Hematuria presence: without hematuria Qualified Code(s): N30.00 - Acute cystitis without hematuria (3) Urinary retention Priority: Primary Status: Acute (4) JENN (acute kidney injury) Priority: Secondary Status: Acute (5) COPD (chronic obstructive pulmonary disease) Priority: Secondary Status: Chronic Qualifiers: COPD type: unspecified COPD Qualified Code(s): J44.9 - Chronic obstructive pulmonary disease, unspecified (6) T2DM (type 2 diabetes mellitus) Priority: Secondary Status: Acute Qualifiers: Diabetes mellitus intermediate insulin use: with intermediate use Diabetes mellitus complication status: without complication Qualified Code(s): E11.9 - Type 2 diabetes mellitus without complications; Z79.4 - group home (current) use of insulin (7) Acute hypokalemia Priority: Secondary Status: Acute Hospital course: Mr. Wright is a 67 year old male. The patient was admitted with altered mental status; with UTI/urinary retention/ acute kidney injury. We treated him with IV Zosyn/IV fluids. Harper catheter has been inserted. Urology was consulted. Creatinine at admission was 2.38; 1.66 today. It was around 1.00 in November. His urine culture is negative. He needs 10 more days of by mouth Omnicef. Harper catheter will be removed in the urology office - in about 10 days. His mental status is baseline again. Discharge discussed with: patient, nurse, case management - Time Spent with Patient Total time spent providing and/or coordinating discharge services: Greater than 30 minutes (40 minutes) - Discharge Medications Prescriptions: Cefdinir [Omnicef] 300 mg PO BID #20 capsule Gabapentin [Neurontin] 300 mg PO BID #60 capsule Gabapentin [Neurontin] 300 mg PO BID #60 capsule Home Medications: Aspirin [Lo-Dose Aspirin EC] 81 mg PO DAILY 12/10/16 [History] Gabapentin [Neurontin] 300 mg PO BID 12/10/16 [History] Sertraline [Zoloft] 100 mg PO DAILY 12/10/16 [History] Lovastatin 10 mg PO HS 04/07/17 [History] traZODone [TraZODone] 50 mg PO HS 08/09/17 [History] Acetaminophen [Tylenol] 650 mg PO Q4HR PRN 10/04/17 [History] Carvedilol 12.5 mg PO BID 10/04/17 [History] Phenol [Chloraseptic] 1 spr MM Q2H PRN 10/04/17 [History] Fluticasone Propionate Nasal [Flonase] 2 spr NS DAILY 12/12/17 [History] Fluticasone/Umeclidin/Vilanter [Trelegy Ellipta 100-62.5-25] 1 puff IH DAILY [History] Furosemide [Lasix] 40 mg PO DAILY 12/12/17 [History] Insulin Regular Human [Humulin R] 0 unit SQ TID PRN 12/12/17 [History] Buspirone HCl [Buspar] 10 mg PO BID 01/11/18 [History] Insulin NPH Human Isophane [Novolin N] 30 unit SQ HS 01/11/18 [History] Insulin NPH Human Isophane [Novolin N] 50 unit SQ QAM 01/11/18 [History] Potassium Chloride [K-Tab ER] 20 meq PO DAILY 01/11/18 [History] Albuterol Sulfate [Albuterol Inhaler] 2 puff IH [id number] PRN inhaler 01/17/18 [ Rx] Cefdinir [Omnicef] 300 mg PO BID #20 capsule 01/17/18 [Rx] Gabapentin [Neurontin] 300 mg PO BID #60 capsule 01/17/18 [Rx] Gabapentin [Neurontin] 300 mg PO BID #60 capsule 01/17/18 [Rx] Nystatin POWDER [Nystop] 1 appl TP BID bottle 01/17/18 [Rx] Tiotropium [Spiriva] 18 mcg IH DAILYR inh 01/17/18 [Rx] Allergies/Adverse Reactions: 3 Allergy/AdvReac Type Severity Reaction Status Date / Time No Known Drug Allergies Allergy See Verified 08/20/17 15:01 Comments Date of admission: 01/13/18 10:20 Primary care physician: Ander Blankenship MD Consults: Urology consult. Discharging clinician: Santino Andrew Anticipated date of discharge: 01/17/18 - Constitutional Vitals: Temp Pulse Resp BP Pulse Ox 98.1 F 71 16 127/77 96 01/17/18 10:54 01/17/18 10:54 01/17/18 10:54 01/17/18 10:54 01/17/18 10:54 General appearance: Present: A&O X 3, morbidly obese, pleasant, no acute distress. Absent: answers questions appropriately - Respiratory Respiratory exam: Present: CTAB. Absent: accessory muscle use, rales, rhonchi, wheezes - Cardiovascular Cardiovascular exam: Present: RRR, +S1, +S2. Absent: diastolic murmur, gallop, rubs, systolic murmur - GI/Abdominal GI/Abdominal exam: Present: normal bowel sounds, soft, no peritoneal signs. Absent: distended, tenderness - Patient Status Disposition: Transfer SNF Condition: Fair Functional capacity at discharge: independent ambulation Overall status at discharge: patient is progressing back to baseline - Discharge Instructions Follow Up With: Campos Concepcion MD [Partnered Physician] - 02/07/18 8:15 am Ander Blankenship MD [Primary Care Provider] - (patient is from [facility]) Forms: ED Satisfaction Letter Additional Instructions: Oxygen at 2 L/m, all the time. Harper catheter will be removed in about 10 days by his urologist, Dr. Denson. - VTE Documentation of Mechanical Device: Intermittent pneumatic compression device
--- NOTE | 2018-01-17 14:03 | Physician Discharge Referral ---
[facility] Referral Info [facility] Provider in Charge: Lashawn DEL VALLE Provider in Charge after Transfer: Other ([facility] physician) - Diagnosis (1) Mental status change Status: Resolved (2) UTI (urinary tract infection) Status: Acute (3) Urinary retention Status: Acute (4) JENN (acute kidney injury) Status: Acute (5) COPD (chronic obstructive pulmonary disease) Status: Chronic (6) Chronic respiratory failure with hypoxia Status: Acute Prognosis: Fair Aware of Diagnosis: Patient Aware of Prognosis: Patient - Transfer Medications Prescriptions: Cefdinir [Omnicef] 300 mg PO BID #20 capsule Home Medications: Aspirin [Lo-Dose Aspirin EC] 81 mg PO DAILY 12/10/16 [History] Gabapentin [Neurontin] 300 mg PO BID 12/10/16 [History] Sertraline [Zoloft] 100 mg PO DAILY 12/10/16 [History] Lovastatin 10 mg PO HS 04/07/17 [History] traZODone [TraZODone] 50 mg PO HS 08/09/17 [History] Acetaminophen [Tylenol] 650 mg PO Q4HR PRN 10/04/17 [History] Carvedilol 12.5 mg PO BID 10/04/17 [History] Phenol [Chloraseptic] 1 spr MM Q2H PRN 10/04/17 [History] Fluticasone Propionate Nasal [Flonase] 2 spr NS DAILY 12/12/17 [History] Fluticasone/Umeclidin/Vilanter [Trelegy Ellipta 100-62.5-25] 1 puff IH DAILY [History] Furosemide [Lasix] 40 mg PO DAILY 12/12/17 [History] Insulin Regular Human [Humulin R] 0 unit SQ TID PRN 12/12/17 [History] Buspirone HCl [Buspar] 10 mg PO BID 01/11/18 [History] Insulin NPH Human Isophane [Novolin N] 30 unit SQ HS 01/11/18 [History] Insulin NPH Human Isophane [Novolin N] 50 unit SQ QAM 01/11/18 [History] Potassium Chloride [K-Tab ER] 20 meq PO DAILY 01/11/18 [History] Albuterol Sulfate [Albuterol Inhaler] 2 puff IH [id number] PRN inhaler 01/17/18 [ Rx] Cefdinir [Omnicef] 300 mg PO BID #20 capsule 01/17/18 [Rx] Nystatin POWDER [Nystop] 1 appl TP BID bottle 01/17/18 [Rx] Tiotropium [Spiriva] 18 mcg IH DAILYR inh 01/17/18 [Rx] Allergies/Adverse Reactions: 3 Allergy/AdvReac Type Severity Reaction Status Date / Time No Known Drug Allergies Allergy See Verified 08/20/17 15:01 Comments - Respiratory Orders Oxygen / L per min (2 l/min) Smoking Cessation: Smoking cessation has been advised. For more information, call the [place] Tobacco Quit Line at 0-066-CSZM-NOW. - Advance Directives Code Status: Full Code - History and Physical History/Physical reviewed & approved w/add comments: yes - Mobility Orders Ambulate - Rehabiliation Orders Rehab Potential: Fair Rehab Orders: Evaluation for Physical Therapy - Treatments Skin tear care topically daily PRN per policy - Diet Orders Cardiac CERTIFICATION: I certify that the transfer of the above named patient to an Extended Care Facility is necessary for the continuing treatment of the diagnosis listed. The above information is true and accurate reflection of patient's current condition. Confidential - Redisclosure prohibited without a patient's written consent.
== END 2018-01-17 15:16 | DRG 690 ==
LOC: EMEROO 06:05 → 2ANU 06:05 → SUATTDRO 10:20
PROVIDERS: ADMIT Hospitalist; ATTEND Internal Medicine

== ENCOUNTER 2018-11-13 17:21 | Inpatient (IN) ==
[2018-11-13] MEDS ORDERED: 0.9 % Sodium Chloride 1,000 ML IVC ONE (17:30)
[2018-11-13] MEDS ORDERED: Levofloxacin 750 MG/150 ML 750 MG/150 ML BAG IVPB ONE (17:30)
--- NOTE | 2018-11-13 17:55 | Emergency Department Note ---
Disposition Clinical Impression: Altered mental status Qualifiers: Altered mental status type: delirium Qualified Code(s): R41.0 - Disorientation, unspecified Disposition: Admitted As Inpatient Condition: Good Referrals: Ander Blankenship MD [Primary Care Provider] - Forms: ED Satisfaction Letter General Adult HPI - General Chief complaint: ED Altered Mental Status Stated complaint: ams Time Seen by Provider: 11/13/18 17:23 Source: EMS Mode of arrival: EMS Limitations: altered mental status Nursing Notes Reviewed: Yes Vital Signs Reviewed: Yes - History of Present Illness HPI Narrative: ED attending attestation note I evaluated the patient independently with the internal medicine PGY one Maninder Nieto. I agree with her evaluation management and disposition. I was present for this significant and keep portions of the history and physical and for any procedures including EKGs. Briefly the patient is: 68-year-old obese male history of COPD hypertension hypercholesterolemia for about a day and a half now with fever altered mental status and foul-smelling urine. History of UTIs in the past. Twelve-lead EKG shows sinus tachycardia at 100 bpm signs of old infarct nonspecific ST-T changes were new no acute changes when compared to prior EKG of 01/11/2018. Patient will undergo workup for sepsis including sepsis protocol however due to presence of CHF patient will get an IV fluid bolus. Patient will be undergoing 45 minutes critical care service this patient with cultures labs imaging and admission. IV antiemetics being ordered. Disposition pending. - Related Data Home Medications Medication Instructions Recorded Confirmed Aspirin [Lo-Dose Aspirin EC] 81 mg PO DAILY 12/10/16 01/13/18 Gabapentin [Neurontin] 300 mg PO BID 12/10/16 01/13/18 Sertraline [Zoloft] 100 mg PO DAILY 12/10/16 01/13/18 Lovastatin 10 mg PO HS 04/07/17 01/13/18 traZODone [TraZODone] 50 mg PO HS 08/09/17 01/13/18 Acetaminophen [Tylenol] 650 mg PO Q4HR PRN 10/04/17 01/13/18 Carvedilol 12.5 mg PO BID 10/04/17 01/13/18 Phenol [Chloraseptic] 1 spr MM Q2H PRN 10/04/17 01/13/18 Fluticasone Propionate Nasal 2 spr NS DAILY 12/12/17 01/13/18 [Flonase] Fluticasone/Umeclidin/Vilanter 1 puff IH DAILY 12/12/17 01/13/18 [Trelegy Ellipta 100-62.5-25] Furosemide [Lasix] 40 mg PO DAILY 12/12/17 01/13/18 Insulin Regular Human [Humulin R] 0 unit SQ TID PRN 12/12/17 01/13/18 Buspirone HCl [Buspar] 10 mg PO BID 01/11/18 01/13/18 Insulin NPH Human Isophane 30 unit SQ HS 01/11/18 01/13/18 [Novolin N] Insulin NPH Human Isophane 50 unit SQ QAM 01/11/18 01/13/18 [Novolin N] Potassium Chloride [K-Tab ER] 20 meq PO DAILY 01/11/18 01/13/18 Previous Rx's Medication Instructions Recorded Albuterol Sulfate [Albuterol 2 puff IH [id number] PRN inhaler 01/17/18 Inhaler] Cefdinir [Omnicef] 300 mg PO BID #20 capsule 01/17/18 Gabapentin [Neurontin] 300 mg PO BID #60 capsule 01/17/18 Gabapentin [Neurontin] 300 mg PO BID #60 capsule 01/17/18 Nystatin POWDER [Nystop] 1 appl TP BID bottle 01/17/18 Tiotropium [Spiriva] 18 mcg IH DAILYR inh 01/17/18 Lidocaine Patch [Lidoderm 5% patch] 1 each TP DAILY PRN #20 adh..patch 10/31/18 Allergies Allergy/AdvReac Type Severity Reaction Status Date / Time No Known Drug Allergies Allergy See Verified 08/20/17 15:01 Comments Past Medical History - Past Medical History Medical history: Reports: CHF, COPD, diabetes, hyperlipidemia, hypertension Surgical history: Reports: pacemaker/AICD, other Psychiatric history: Reports: depression - Social History Smoking Status: Former smoker Smokeless Tobacco Status: No Alcohol use: Reports: none Drug use: Reports: none
--- NOTE | 2018-11-13 17:56 | Emergency Department Note ---
Disposition Clinical Impression: Delirium due to general medical condition, Urinary retention Altered mental status Qualifiers: Altered mental status type: delirium Qualified Code(s): R41.0 - Disorientation, unspecified UTI (urinary tract infection) Qualifiers: Urinary tract infection type: catheter-associated UTI Indwelling urinary catheter type: indwelling urethral catheter Encounter type: initial encounter Qualified Code(s): T83.511A - Infection and inflammatory reaction due to indwelling urethral catheter, initial encounter; N39.0 - Urinary tract infection, site not specified Disposition: Admitted As Inpatient Condition: Fair Time of Disposition: 20:00 General Adult HPI - General Chief complaint: ED Altered Mental Status Stated complaint: ams Time Seen by Provider: 11/13/18 17:23 Source: EMS Mode of arrival: EMS Limitations: altered mental status Nursing Notes Reviewed: Yes Vital Signs Reviewed: Yes - History of Present Illness HPI Narrative: Mr. Wright is a 68M who presents today from SNF with reported altered mental status and malodorous urine. The patient is provided by EMS as patient is altered. Patient states he is "fine". But will not answer questions to assess orientation. Denies any pain. - Related Data Home Medications Medication Instructions Recorded Confirmed Aspirin [Lo-Dose Aspirin EC] 81 mg PO DAILY 12/10/16 01/13/18 Gabapentin [Neurontin] 300 mg PO BID 12/10/16 01/13/18 Sertraline [Zoloft] 100 mg PO DAILY 12/10/16 01/13/18 Lovastatin 10 mg PO HS 04/07/17 01/13/18 traZODone [TraZODone] 50 mg PO HS 08/09/17 01/13/18 Acetaminophen [Tylenol] 650 mg PO Q4HR PRN 10/04/17 01/13/18 Carvedilol 12.5 mg PO BID 10/04/17 01/13/18 Phenol [Chloraseptic] 1 spr MM Q2H PRN 10/04/17 01/13/18 Fluticasone Propionate Nasal 2 spr NS DAILY 12/12/17 01/13/18 [Flonase] Fluticasone/Umeclidin/Vilanter 1 puff IH DAILY 12/12/17 01/13/18 [Trelegy Ellipta 100-62.5-25] Furosemide [Lasix] 40 mg PO DAILY 12/12/17 01/13/18 Insulin Regular Human [Humulin R] 0 unit SQ TID PRN 12/12/17 01/13/18 Buspirone HCl [Buspar] 10 mg PO BID 01/11/18 01/13/18 Insulin NPH Human Isophane 30 unit SQ HS 01/11/18 01/13/18 [Novolin N] Insulin NPH Human Isophane 50 unit SQ QAM 01/11/18 01/13/18 [Novolin N] Potassium Chloride [K-Tab ER] 20 meq PO DAILY 01/11/18 01/13/18 Previous Rx's Medication Instructions Recorded Albuterol Sulfate [Albuterol 2 puff IH [id number] PRN inhaler 01/17/18 Inhaler] Cefdinir [Omnicef] 300 mg PO BID #20 capsule 01/17/18 Gabapentin [Neurontin] 300 mg PO BID #60 capsule 01/17/18 Gabapentin [Neurontin] 300 mg PO BID #60 capsule 01/17/18 Nystatin POWDER [Nystop] 1 appl TP BID bottle 01/17/18 Tiotropium [Spiriva] 18 mcg IH DAILYR inh 01/17/18 Lidocaine Patch [Lidoderm 5% patch] 1 each TP DAILY PRN #20 adh..patch 10/31/18 Allergies Allergy/AdvReac Type Severity Reaction Status Date / Time No Known Drug Allergies Allergy See Verified 08/20/17 15:01 Comments Limitations: ROS unobtainable due to patients medical condition Past Medical History - Past Medical History Source: old records reviewed, nursing notes reviewed Medical history: Reports: CHF, COPD, diabetes, hyperlipidemia, hypertension Surgical history: Reports: pacemaker/AICD, other Psychiatric history: Reports: depression - Social History Smoking Status: Former smoker Smokeless Tobacco Status: No Alcohol use: Reports: none Drug use: Reports: none Physical Exam - General Limitations: altered mental status General appearance: obtunded, obese - Chest Chest inspection: Present: normal inspection, symmetric chest wall rise. Absent: tenderness - Respiratory Respiratory exam: Present: wheezes (diffuse ). Absent: respiratory distress, accessory muscle use - Cardiovascular Cardiovascular exam: Present: regular rate, normal rhythm, normal heart sounds, +S1, +S2. Absent: rubs, gallop - Abdominal Exam Abdominal exam: Present: soft, Non-Tender. Absent: tenderness, distention, guarding, rebound, rigidity - Extremities Exam Extremities exam: Present: normal inspection. Absent: pedal edema - Neurological Exam Neurological exam: Present: other (Unable to assess due to mental status ) - Skin Skin exam: Present: warm, dry, intact, normal color Course Course Narrative: Initial history and physical exam were suspicious for sepsis, likely urosepsis. Alternative diagnoses were considered including pneumonia, CHF exacerbation, or COPD exacerbation. However pt had no significant cardio-pulmonary findings on physical exam. Initial evaluation included CBC, CMP, lactic acid, troponin, PT/INR, PTT, and UA. CXR was also obtained. Urinalysis was suggestive of UTI and urine culture was ordered. EKG showed no ischemic changes. Pt was found to have elevated temp of 101.4, tachycardic with HR of 100. Pt's BP while this provider was in the room was 126 systolic. With the patient's history of CHF, further IV fluids beyond the 500mL from EMS were held at this time. Pt was started on empiric Levaquin for UTI. CXR was patterson ggestive of pulmonary edema with increased interstitial markings, however patient is non-tachypnic with non-labored breathing and SpO2 of 96%. Later on in the patient's course, BP was decreased at 104/92. With this patient was given 500mL IV fluids and started on BiPAP. Discussed pt's case with hospitalist, Dr Redding, who accepted the patient for admission for UTI with suspected sepsis. He requested head CT, which later showed no acute abnormalities. Pt stable to transfer to floor. - Reevaluation(s) Reevaluation #1: Pt continues to respond to voice and follows commands. BP decreased to 104 systolic. Will give pt 500mL IV fluids and start on BiPAP with concerns for pulmonary edema on CXR and history of CHF. Time: 19:20 Reevaluation #2: Pt recently returned from CT of head. Awaiting images and report. Pt resting comfortably with BiPAP on. No changes in mentation at this time. Remains stable for transfer to floor. Time: 21:14 Vital Signs Temperature 101.4 F H 11/13/18 18:13 Pulse Rate 102 11/13/18 18:13 Respiratory Rate 22 11/13/18 18:13 Blood Pressure 86/47 11/13/18 18:13 O2 Sat by Pulse Oximetry 94 11/13/18 18:13 Temperature 101.4 F H 11/13/18 18:13 Pulse Rate 84 11/13/18 19:53 Respiratory Rate 18 11/13/18 19:53 Blood Pressure 104/82 11/13/18 19:53 O2 Sat by Pulse Oximetry 97 11/13/18 19:53 Oxygen Delivery Oxygen Delivery Bipap Medical Decision Making - Medical Records Medical records reviewed: Yes I reviewed the patient's medical records. - Lab Data Lab results reviewed: Yes I reviewed the patient's lab results. Result diagrams: 11/13/18 18:12 11/13/18 18:12 Lab Results 11/13/18 11/13/18 11/13/18 Range/Units 17:43 18:07 18:12 WBC 17.0 H (4.3-11.1) K/mcL RBC 4.31 (4.19-5.50) M/mcL Hgb 11.3 L (12.9-16.9) g/dL Hct 35.0 L (37.5-50.1) % MCV 81.2 L (83.0-100.0) fL MCH 26.2 L (28.0-33.3) pg MCHC 32.3 (31.6-35.5) g/dL RDW 16.4 H (11.5-14.5) % Plt Count 218 (140-400) K/mcL MPV 9.8 (9.4-12.4) fL Immature Gran % 1.5 (0-4) % Seg Neutrophils % 90.3 % Lymphocytes % 3.8 % Monocytes % 4.2 % Eosinophils % 0.0 % Basophils % 0.2 % Neutrophils # 15.3 H (1.6-8.9) K/mcL Lymphocytes # 0.6 (0.6-4.6) K/mcL Monocytes # 0.7 (0.0-1.3) K/mcL Eosinophils # 0.0 (0.0-0.6) K/mcL Basophils # 0.0 (0.0-0.2) K/mcL PT (9.4-12.1) Seconds INR APTT (26.0-36.0) Seconds Sodium (136-145) mEq/L Potassium (3.5-5.1) mEq/L Chloride (98-107) mEq/L Carbon Dioxide (23-29) mEq/L BUN (8-23) mg/dL Creatinine (0.70-1.30) mg/dL Est GFR ( Amer) (> 60) Est GFR (Non-Af Amer) (> 60) BUN/Creatinine Ratio (6-26) Glucose (70-105) mg/dL Calculated Osmolality (280-300) Lactic Acid 0.8 (0.5-2.2) mmol/L Calcium (8.6-10.3) mg/dL Phosphorus (2.7-4.5) mg/dL Magnesium (1.6-2.6) mg/dL Total Bilirubin (0.3-1.0) mg/dL Direct Bilirubin (0.0-0.2) mg/dL Indirect Bilirubin (0.0-1.2) mg/dL AST (13-39) Units/L ALT (7-52) Units/L Alkaline Phosphatase (34-104) Units/L Troponin I (< 0.04) ng/mL Serum Total Protein (6.4-8.9) g/dL Albumin (3.5-5.7) g/dL Globulin (2.4-3.5) g/dL Albumin/Globulin Ratio (1.1-2.2) Urine Color Dark Yellow (Yellow) Urine Clarity Turbid A (Clear) Urine pH 7.0 (5.0-8.0) pH Units Ur Specific [place] 1.020 (1.010-1.025) Urine Protein >=300 H (Neg-Trace) mg/dL Urine Glucose (UA) Normal (Normal) mg/dL Urine Ketones Trace H (Negative) mg/dL Urine Blood Moderate H (Negative) Urine Nitrite Negative (Negative) Urine Bilirubin Small H (Negative) Urine Urobilinogen Normal (Normal) mg/dL Ur Leukocyte Esterase Large H (Negative) Urine Microscopic RBC 50-100 H (0-3) per hpf Urine Microscopic WBC TNTC H (0-3) per hpf Ur Squamous Epith Cells Many H (None-Few) per lpf Urine Bacteria Many H (None-Few) per hpf Hyaline Casts Few (None-Few) per lpf Ur Culture Indicated? NO. A (NO) 11/13/18 11/13/18 Range/Units 18:12 18:12 WBC (4.3-11.1) K/mcL RBC (4.19-5.50) M/mcL Hgb (12.9-16.9) g/dL Hct (37.5-50.1) % MCV (83.0-100.0) fL MCH (28.0-33.3) pg MCHC (31.6-35.5) g/dL RDW (11.5-14.5) % Plt Count (140-400) K/mcL MPV (9.4-12.4) fL Immature Gran % (0-4) % Seg Neutrophils % % Lymphocytes % % Monocytes % % Eosinophils % % Basophils % % Neutrophils # (1.6-8.9) K/mcL Lymphocytes # (0.6-4.6) K/mcL Monocytes # (0.0-1.3) K/mcL Eosinophils # (0.0-0.6) K/mcL Basophils # (0.0-0.2) K/mcL PT 16.6 H (9.4-12.1) Seconds INR 1.5 APTT 30.2 (26.0-36.0) Seconds Sodium 132 L (136-145) mEq/L Potassium 4.2 (3.5-5.1) mEq/L Chloride 98 (98-107) mEq/L Carbon Dioxide 23 (23-29) mEq/L BUN 33 H (8-23) mg/dL Creatinine 1.31 H (0.70-1.30) mg/dL Est GFR ( Amer) > 60 (> 60) Est GFR (Non-Af Amer) 55 L (> 60) BUN/Creatinine Ratio 25 (6-26) Glucose 180 H (70-105) mg/dL Calculated Osmolality 286 (280-300) Lactic Acid (0.5-2.2) mmol/L Calcium 9.0 (8.6-10.3) mg/dL Phosphorus 2.3 L (2.7-4.5) mg/dL Magnesium 2.0 (1.6-2.6) mg/dL Total Bilirubin 0.8 (0.3-1.0) mg/dL Direct Bilirubin 0.1 (0.0-0.2) mg/dL Indirect Bilirubin 0.7 (0.0-1.2) mg/dL AST 16 (13-39) Units/L ALT 12 (7-52) Units/L Alkaline Phosphatase 66 (34-104) Units/L Troponin I 0.04 H* (< 0.04) ng/mL Serum Total Protein 7.5 (6.4-8.9) g/dL Albumin 3.3 L (3.5-5.7) g/dL Globulin 4.2 H (2.4-3.5) g/dL Albumin/Globulin Ratio 0.8 L (1.1-2.2) Urine Color (Yellow) Urine Clarity (Clear) Urine pH (5.0-8.0) pH Units Ur Specific [place] (1.010-1.025) Urine Protein (Neg-Trace) mg/dL Urine Glucose (UA) (Normal) mg/dL Urine Ketones (Negative) mg/dL Urine Blood (Negative) Urine Nitrite (Negative) Urine Bilirubin (Negative) Urine Urobilinogen (Normal) mg/dL Ur Leukocyte Esterase (Negative) Urine Microscopic RBC (0-3) per hpf Urine Microscopic WBC (0-3) per hpf Ur Squamous Epith Cells (None-Few) per lpf Urine Bacteria (None-Few) per hpf Hyaline Casts (None-Few) per lpf Ur Culture Indicated? (NO) - Radiology Data Radiology results reviewed: Yes I reviewed the patient's radiology results. Chest X-Ray 11/13/18 17:30 IMPRESSION: Increased interstitial markings concerning for pulmonary edema. D/ / Rk Gonzalez MD / Rk Gonzalez MD Interpreting Provider: Rk Gonzalez MD Head CT 11/13/18 19:35 IMPRESSION: Motion limited study. No gross evidence of acute intracranial abnormality. D/ / Edvin Urban / Edvin Urban Interpreting Provider: Edvin Urban - EKG Data EKG #1 EKG attestation: Yes I reviewed and interpreted this EKG. EKG results narrative: EKG shows sinus tachycardia with rate of 100. Noted left axis deviation. Noted old inferior infarcts with Q>35 ms in leads II, III, and aVF.
[2018-11-13 18:04] LABS: Bilirubin,Urine Small (Negative); Blood,Urine Moderate (Negative); Clarity,Urine Turbid (Clear); Color,Urine Dark Yellow (Yellow); Glucose,Urine (UA) Normal (Normal); Ketones,Urine Trace mg/dL (Negative); Leukocyte Esterase,Urine Large (Negative); Nitrite,Urine Negative (Negative); Protein,Urine >=300 mg/dL (Neg-Trace); Urobilinogen,Urine Normal (Normal)
[2018-11-13 18:06] LABS: Bacteria,Urine Many per hpf (None-Few); Hyaline Casts,Urine Few per lpf (None-Few); Squamous Epithelial Cell,Urine Many per lpf (None-Few); WBC,Urine TNTC per hpf (0-3)
[2018-11-13 18:21] LABS: RBC,Urine 50-100 per hpf (0-3)
[2018-11-13 18:27] LABS: Basophils % 0.2 %; Hemoglobin 11.3 g/dL (12.9-16.9); Immature Granulocytes % 1.5 % (0-4); Lymphocytes # 0.6 K/mcL (0.6-4.6); Lymphocytes % 3.8 %; Mean Corpuscular HGB Conc 32.3 g/dL (31.6-35.5); Mean Corpuscular Hemoglobin 26.2 pg (28.0-33.3); Mean Corpuscular Volume 81.2 fL (83.0-100.0); Mean Platelet Volume 9.8 fL (9.4-12.4); Monocytes # 0.7 K/mcL (0.0-1.3); Monocytes % 4.2 %; Neutrophils # 15.3 K/mcL (1.6-8.9); Platelet Count 218 K/mcL (140-400); Red Blood Count 4.31 M/mcL (4.19-5.50); Red Cell Distribution Width 16.4 % (11.5-14.5); Segmented Neutrophils % 90.3 %
[2018-11-13 18:34] LABS: INR 1.5; Prothrombin Time 16.6 Seconds (9.4-12.1)
[2018-11-13 18:37] LABS: Activated Partial Thrombo Time 30.2 Seconds (26.0-36.0)
[2018-11-13 18:49] LABS: Alanine Aminotransferase 12 Units/L (7-52); Albumin 3.3 g/dL (3.5-5.7); Albumin/Globulin Ratio 0.8 (1.1-2.2); Alkaline Phosphatase 66 Units/L (34-104); Aspartate Amino Transferase 16 Units/L (13-39); BUN/Creatinine Ratio 25 (6-26); Bilirubin,Direct 0.1 mg/dL (0.0-0.2); Bilirubin,Indirect 0.7 mg/dL (0.0-1.2); Bilirubin,Total 0.8 mg/dL (0.3-1.0); Blood Urea Nitrogen 33 mg/dL (8-23); Carbon Dioxide 23 mEq/L (23-29); Chloride 98 mEq/L (98-107); Globulin 4.2 g/dL (2.4-3.5); Glucose 180 mg/dL (70-105); Osmolality,Calculated 286 (280-300); Phosphorous 2.3 mg/dL (2.7-4.5); Potassium 4.2 mEq/L (3.5-5.1); Sodium 132 mEq/L (136-145); Total Protein 7.5 g/dL (6.4-8.9); eGFR For Non-African Americans 55 (> 60)
[2018-11-13 18:53] LABS: Troponin I 0.04 ng/mL (< 0.04)
[2018-11-13] MEDS ORDERED: 0.9 % Sodium Chloride 500 ML IVC ONE (19:27)
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
[2018-11-14] MEDS ORDERED: Dextrose Gel 15 GM/37.5 ML TUBE PO PRN ×2 (02:37)
[2018-11-14] MEDS ORDERED: D5% in Water 1,000 ML IVC PRN (02:37)
[2018-11-14] MEDS ORDERED: *HR* Dextrose 50 % in Water (Syg) 50 ML SYRINGE IVP PRN (02:37)
[2018-11-14] MEDS: Ipratropium/Albuterol Neb 3 ML IH SCH ×4 (05:01→22:09)
[2018-11-14 05:14] LABS: Basophils # 0.1 K/mcL (0.0-0.2); Basophils % 0.3 %; Hematocrit 37.9 % (37.5-50.1); Hemoglobin 11.8 g/dL (12.9-16.9); Lymphocytes # 0.8 K/mcL (0.6-4.6); Lymphocytes % 5.4 %; Mean Corpuscular HGB Conc 31.1 g/dL (31.6-35.5); Mean Corpuscular Hemoglobin 25.8 pg (28.0-33.3); Mean Corpuscular Volume 82.8 fL (83.0-100.0); Mean Platelet Volume 9.9 fL (9.4-12.4); Monocytes # 0.7 K/mcL (0.0-1.3); Monocytes % 4.8 %; Neutrophils # 13.3 K/mcL (1.6-8.9); Platelet Count 199 K/mcL (140-400); Red Blood Count 4.58 M/mcL (4.19-5.50); Red Cell Distribution Width 16.8 % (11.5-14.5); Segmented Neutrophils % 87.5 %
[2018-11-14 05:38] LABS: BUN/Creatinine Ratio 23 (6-26); Blood Urea Nitrogen 32 mg/dL (8-23); Calcium 9.3 mg/dL (8.6-10.3); Carbon Dioxide 23 mEq/L (23-29); Chloride 99 mEq/L (98-107); Glucose 165 mg/dL (70-105); Osmolality,Calculated 289 (280-300); Potassium 4.2 mEq/L (3.5-5.1); Sodium 134 mEq/L (136-145); Troponin I 0.05 ng/mL (< 0.04); eGFR For Non-African Americans 50 (> 60)
[2018-11-14 06:04] LABS: ABG Base Excess -1 mEq/L (-2 to 3); ABG HCO3 22 mEq/L (21-27); ABG Oxygen Saturation 97 % (95-98); ABG PCO2 28 mmHg (35-45); ABG PO2 84 mmHg (85-104); ABG TCO2 23 mEq/L (20-26)
[2018-11-14] MEDS: Insulin LISPRO 300 UNITS/3 ML VIAL SQ SCH ×3 (06:04→17:16)
[2018-11-14] MEDS: Desitin (Zinc Oxide) 56 GM TUBE TP PRN ×2 (06:05→08:00)
[2018-11-14] MEDS: Piperacillin/Tazobactam 3.375 GM in 0.9 % Sodium Chloride Mini Bag 100 ML IVPB SCH ×2 (07:53→15:57)
[2018-11-14] MEDS: Furosemide 20 MG/2 ML VIAL IVP SCH (07:55)
--- NOTE | 2018-11-14 08:10 | Urology - Consult Note ---
<Sue Dickens N - Last Filed: 11/14/18 08:08> Date of Encounter: 11/14/18 Time of Encounter: 07:50 - Assessment and Plan (1) Catheter-associated urinary tract infection Current Visit: Yes Status: Acute Assessment and plan: Patient is a 68-year-old male who presents with a urinary tract infection and chronic indwelling Ocasio catheter. Vital signs are currently stable and afebrile. Patient sustained a maximum temperature to 101.4 since admission. White blood cell count is elevated to 15.3. Serum creatinine is elevated to 1.41. Patient is receiving IV Zosyn. Blood and urine cultures are pending. I discussed possible catheter exchange due to infection. Dr. Concepcion will be in to reevaluate patient and give final recommendation regarding catheter. Qualifiers: Indwelling urinary catheter type: indwelling urethral catheter Encounter type: initial encounter Qualified Code(s): T83.511A - Infection and inflammatory reaction due to indwelling urethral catheter, initial encounter; N39.0 - Urinary tract infection, site not specified Urology CN:HPI Consult date: 11/14/18 Reason for consult Urology: Other (hematuria; UTI; chronic indwelling ocasio) Requesting physician: Kali Shields History of present illness: Patient is a 68-year-old male well-known to our service who presents with a urinary tract infection and chronic indwelling Ocasio catheter. Mr. Wright is an established patient of Dr. Concepcion and undergoes catheter changes monthly at his extended care facility. Patient has experienced recurrent urinary tract infections requiring hospitalization in the past. Nursing staff from the extended care facility reports the patient has experienced altered mental status, febrile illness and foul-smelling urine over the last 2 days. Patient was brought to the emergency department from his extended care facility and was admitted for further evaluation. On initial examination, patient was febrile with a maximum temperature to 101.4. Blood and urine cultures were collected and are still pending. Patient reports his last catheter change was recent and uneventful, and he states he is not due for another change until next month. Currently, patient is lying in bed in no apparent distress with nursing staff at bedside. Patient is somewhat confused but able to answer most pointed questions . Past Med Surg Social Fam HX - Past Medical History Medical history: CHF, COPD, diabetes, hyperlipidemia, hypertension Psychiatric history: depression - Past Surgical History Surgical History: pacemaker/AICD, other Additional surgical history: defibrilator - Social History Smoking Status: Former smoker Smokeless Tobacco Status: No Alcohol use: none Drug use: none - Family History Father Living Status: Hx Family Respiratory Disorders: Yes (COPD) Hx Family Endocrine Disorder: Yes (DM) Mother Living Status: Hx Family Cancer: Yes (brain tumor) Medications and Allergies RX: Aspirin [Lo-Dose Aspirin EC] 81 mg PO DAILY 12/10/16 [History] RX: Sertraline [Zoloft] 100 mg PO DAILY 12/10/16 [History] RX: Lovastatin 10 mg PO HS 04/07/17 [History] RX: traZODone [TraZODone] 100 mg PO HS 08/09/17 [History] RX: Acetaminophen [Tylenol] 650 mg PO Q4HR PRN 10/04/17 [History] RX: Carvedilol 12.5 mg PO BID 10/04/17 [History] RX: Phenol [Chloraseptic] 1 spr MM Q2H PRN 10/04/17 [History] RX: Fluticasone Propionate Nasal [Flonase] 2 spr NS DAILY 12/12/17 [History] RX: Furosemide [Lasix] 40 mg PO DAILY 12/12/17 [History] RX: Potassium Chloride [K-Tab ER] 20 meq PO DAILY 01/11/18 [History] RX: Albuterol Sulfate [Albuterol Inhaler] 2 puff IH [id number] PRN inhaler 01/17/18 [Rx] RX: Tiotropium [Spiriva] 18 mcg IH DAILYR inh 01/17/18 [Rx] RX: Lidocaine Patch [Lidoderm 5% patch] 1 each TP DAILY PRN #20 adh..patch 0 10/31/18 [Rx] Bisacodyl [Gentle Laxative] 10 mg RC DAILY PRN 11/13/18 [History] Diclofenac Sodium [Diclozor] 1 each TP PRN PRN 11/13/18 [History] Fluticasone/Umeclidin/Vilanter [Trelegy Ellipta 100-62.5-25] 1 each IH DAILY 11/13/18 [History] Glucagon, Human Recombinant [GlucaGen] 1 mg IM ONCE PRN 11/13/18 [History] Guaifenesin [Diabetic Tussin Ex] 10 ml PO Q4H PRN 11/13/18 [History] Hyoscyamine SL [Levsin SL] 0.125 mg SL Q2H PRN 11/13/18 [History] Insulin Regular, Human [Novolin R] 100 ml SQ ACHS 11/13/18 [History] Ipratropium/Albuterol Sulfate [Iprat-Albut 0.5-3(2.5) mg/3 ml] 3 ml IH BID PRN 0 11/13/18 [History] Menthol [Biofreeze] 1 appl TP BID 11/13/18 [History] Edin/Poly/Chavez OINT [Triple Antibiotic Ointment] 1 appl TP PRN PRN 11/13/18 [History] Ondansetron ODT [Zofran ODT] 4 mg SL Q6HR PRN 11/13/18 [History] Promethazine [Phenergan] 25 mg RC Q12H PRN 11/13/18 [History] RX: Gabapentin [Neurontin] 300 mg PO TID 11/13/18 [History] RX: Loperamide [Imodium] 2 mg PO Q4HR PRN MDD 8mg/24hr 11/13/18 [History] RX: Saline Nasal [place] [Sutton Nasal [place]] 1 spray NS DAILY PRN 11/13/18 [History] Tamsulosin HCl [Flomax] 0.4 mg PO DAILY 11/13/18 [History] Tramadol HCl [Ultram] 50 mg PO Q4H PRN 11/13/18 [History] rOPINIRole [Requip] 0.25 mg PO HS 11/13/18 [History] Acetaminophen [Tylenol 650mg SUPP] 650 mg RC Q4H PRN 11/14/18 [History] Insulin NPH Human Isophane [Novolin N] 30 unit SQ HS 11/14/18 [History] Insulin NPH Human Isophane [Novolin N] 50 unit SQ QAM 11/14/18 [History] RX: Morphine Oral CONC [Roxanol] 0.25 ml PO Q4H PRN 11/14/18 [History] Allergy/AdvReac Type Severity Reaction Status Date / Time No Known Drug Allergies Allergy See Verified 08/20/17 15:01 Comments Review of Systems ROS unobtainable: due to mental status Exam Initial Vital Signs Temp Pulse Resp BP Pulse Ox 101.4 F H 102 22 86/47 94 11/13/18 18:13 11/13/18 18:13 11/13/18 18:13 11/13/18 18:13 11/13/18 18:13 - General physical appearance Present: no distress, no pain, obese - Eyes Present: PERRL, normal ocular movement - ENT Present: normal nares, no hearing loss - Neck Present: no masses, trachea midline, no lymphadenopathy - Respiratory Present: normal respiratory effort - Cardiovascular Cardiovascular exam IM: RRR - Abdomen Abdomen: Present: soft, non tender. Absent: distended - Genitourinary other (geographic rash in groin most consistent with candidiasis; Ocasio catheter indwelling and draining transparent, clear yellow urine into bedside bag) Penis: Present: other (Significant penile erosion from indwelling Ocasio catheter) - Integumentary Present: no growths, no abnormal pigmentation - Neurologic Present: confused - Musculoskeletal Present: other (trace pedal edema ) Urology Results - Labs 11/14/18 04:50 11/14/18 04:50 Abnormal lab results WBC 15.3 K/mcL (4.3-11.1) H 11/14/18 04:50 Hgb 11.8 g/dL (12.9-16.9) L 11/14/18 04:50 MCV 82.8 fL (83.0-100.0) L 11/14/18 04:50 MCH 25.8 pg (28.0-33.3) L 11/14/18 04:50 MCHC 31.1 g/dL (31.6-35.5) L 11/14/18 04:50 RDW 16.8 % (11.5-14.5) H 11/14/18 04:50 Neutrophils # 13.3 K/mcL (1.6-8.9) H 11/14/18 04:50 PT 16.6 Seconds (9.4-12.1) H 11/13/18 18:12 ABG pH 7.50 pH Units (7.32-7.45) H 11/14/18 06:01 ABG pCO2 28 mmHg (35-45) L 11/14/18 06:01 ABG pO2 84 mmHg (85-104) L 11/14/18 06:01 Sodium 134 mEq/L (136-145) L 11/14/18 04:50 BUN 32 mg/dL (8-23) H 11/14/18 04:50 Creatinine 1.41 mg/dL (0.70-1.30) H 11/14/18 04:50 Est GFR (Non-Af Amer) 50 (> 60) L 11/14/18 04:50 Glucose 165 mg/dL (70-105) H 11/14/18 04:50 POC Glucose 155 mg/dL (70-99) H 11/14/18 05:50 Phosphorus 2.3 mg/dL (2.7-4.5) L 11/13/18 18:12 Troponin I 0.05 ng/mL (< 0.04) H* 11/14/18 04:50 B-Natriuretic Peptide 626 pg/mL (Less than 100) H 11/14/18 04:50 Albumin 3.3 g/dL (3.5-5.7) L 11/13/18 18:12 Globulin 4.2 g/dL (2.4-3.5) H 11/13/18 18:12 Albumin/Globulin Ratio 0.8 (1.1-2.2) L 11/13/18 18:12 Urine Clarity Turbid (Clear) A 11/13/18 17:43 Urine Protein >=300 mg/dL (Neg-Trace) H 11/13/18 17:43 Urine Ketones Trace mg/dL (Negative) H 11/13/18 17:43 Urine Blood Moderate (Negative) H 11/13/18 17:43 Urine Bilirubin Small (Negative) H 11/13/18 17:43 Ur Leukocyte Esterase Large (Negative) H 11/13/18 17:43 Urine Microscopic RBC 50-100 per hpf (0-3) H 11/13/18 17:43 Urine Microscopic WBC TNTC per hpf (0-3) H 11/13/18 17:43 Ur Squamous Epith Cells Many per lpf (None-Few) H 11/13/18 17:43 Urine Bacteria Many per hpf (None-Few) H 11/13/18 17:43 Ur Culture Indicated? NO. (NO) A 11/13/18 17:43 Diabetes panel 11/13/18 11/14/18 Range/Units 18:12 04:50 Sodium 132 L 134 L (136-145) mEq/L Potassium 4.2 4.2 (3.5-5.1) mEq/L Chloride 98 99 (98-107) mEq/L Carbon Dioxide 23 23 (23-29) mEq/L BUN 33 H 32 H (8-23) mg/dL Creatinine 1.31 H 1.41 H (0.70-1.30) mg/dL Glucose 180 H 165 H (70-105) mg/dL Calcium 9.0 9.3 (8.6-10.3) mg/dL AST 16 (13-39) Units/L ALT 12 (7-52) Units/L Alkaline Phosphatase 66 (34-104) Units/L Albumin 3.3 L (3.5-5.7) g/dL Calcium panel 11/13/18 11/14/18 Range/Units 18:12 04:50 Calcium 9.0 9.3 (8.6-10.3) mg/dL Phosphorus 2.3 L (2.7-4.5) mg/dL Albumin 3.3 L (3.5-5.7) g/dL Pituitary panel 11/13/18 11/14/18 Range/Units 18:12 04:50 Sodium 132 L 134 L (136-145) mEq/L Potassium 4.2 4.2 (3.5-5.1) mEq/L Chloride 98 99 (98-107) mEq/L Carbon Dioxide 23 23 (23-29) mEq/L BUN 33 H 32 H (8-23) mg/dL Creatinine 1.31 H 1.41 H (0.70-1.30) mg/dL Glucose 180 H 165 H (70-105) mg/dL Calcium 9.0 9.3 (8.6-10.3) mg/dL Adrenal panel 11/13/18 11/14/18 Range/Units 18:12 04:50 Sodium 132 L 134 L (136-145) mEq/L Potassium 4.2 4.2 (3.5-5.1) mEq/L Chloride 98 99 (98-107) mEq/L Carbon Dioxide 23 23 (23-29) mEq/L BUN 33 H 32 H (8-23) mg/dL Creatinine 1.31 H 1.41 H (0.70-1.30) mg/dL Glucose 180 H 165 H (70-105) mg/dL Calcium 9.0 9.3 (8.6-10.3) mg/dL Total Bilirubin 0.8 (0.3-1.0) mg/dL AST 16 (13-39) Units/L ALT 12 (7-52) Units/L Alkaline Phosphatase 66 (34-104) Units/L Albumin 3.3 L (3.5-5.7) g/dL All other labs normal. Consult Discharge Plan - Plan Referrals: Ander Blankenship MD [Primary Care Provider] - <JameyCampos Chris - Last Filed: 11/14/18 13:59> Date of Encounter: 11/14/18 - Assessment and Plan (1) Leukocytosis Current Visit: Yes Status: Acute Assessment and plan: Likely related to acute cystitis with UTI. Expectation that this will improve with IV antibiotics. If this fails to improve patient will need CT scan. Qualifiers: Leukocytosis type: unspecified Qualified Code(s): D72.829 - Elevated white blood cell count, unspecified (2) Catheter-associated urinary tract infection Current Visit: Yes Status: Acute Assessment and plan: Patient was seen and examined independently. I agree with the plan as written by Sue Dickens. No indication at this time for changing of his catheter. This was recently changed. We will continue to follow along. Qualifiers: Indwelling urinary catheter type: indwelling urethral catheter Encounter type: initial encounter Qualified Code(s): T83.511A - Infection and inflammatory reaction due to indwelling urethral catheter, initial encounter; N39.0 - Urinary tract infection, site not specified (3) Urinary retention Current Visit: No Status: Acute Assessment and plan: Patient to keep his catheter in place at this time. Patient has a history of long dwelling urethral catheter. (4) Urethral erosion by catheter Current Visit: Yes Status: Acute Assessment and plan: Patient with long-standing history of indwelling urethral catheter. Urethral erosion occurs either because of long-standing presence of a catheter or downward pressure of the catheter. No indication for repair at this time. Qualifiers: Encounter type: subsequent encounter Qualified Code(s): T83.89XD - Other specified complication of genitourinary prosthetic devices, implants and grafts, subsequent encounter; N36.8 - Other specified disorders of urethra Exam Initial Vital Signs Temp Pulse Resp BP Pulse Ox 101.4 F H 102 22 86/47 94 11/13/18 18:13 11/13/18 18:13 11/13/18 18:13 11/13/18 18:13 11/13/18 18:13 Urology Results - Labs 11/14/18 04:50 11/14/18 04:50 Abnormal lab results WBC 15.3 K/mcL (4.3-11.1) H 11/14/18 04:50 Hgb 11.8 g/dL (12.9-16.9) L 11/14/18 04:50 MCV 82.8 fL (83.0-100.0) L 11/14/18 04:50 MCH 25.8 pg (28.0-33.3) L 11/14/18 04:50 MCHC 31.1 g/dL (31.6-35.5) L 11/14/18 04:50 RDW 16.8 % (11.5-14.5) H 11/14/18 04:50 Neutrophils # 13.3 K/mcL (1.6-8.9) H 11/14/18 04:50 PT 16.6 Seconds (9.4-12.1) H 11/13/18 18:12 ABG pH 7.50 pH Units (7.32-7.45) H 11/14/18 06:01 ABG pCO2 28 mmHg (35-45) L 11/14/18 06:01 ABG pO2 84 mmHg (85-104) L 11/14/18 06:01 Sodium 134 mEq/L (136-145) L 11/14/18 04:50 BUN 32 mg/dL (8-23) H 11/14/18 04:50 Creatinine 1.41 mg/dL (0.70-1.30) H 11/14/18 04:50 Est GFR (Non-Af Amer) 50 (> 60) L 11/14/18 04:50 Glucose 165 mg/dL (70-105) H 11/14/18 04:50 POC Glucose 155 mg/dL (70-99) H 11/14/18 05:50 Phosphorus 2.3 mg/dL (2.7-4.5) L 11/13/18 18:12 Troponin I 0.04 ng/mL (< 0.04) H* 11/14/18 11:43 B-Natriuretic Peptide 626 pg/mL (Less than 100) H 11/14/18 04:50 Albumin 3.3 g/dL (3.5-5.7) L 11/13/18 18:12 Globulin 4.2 g/dL (2.4-3.5) H 11/13/18 18:12 Albumin/Globulin Ratio 0.8 (1.1-2.2) L 11/13/18 18:12 Urine Clarity Turbid (Clear) A 11/13/18 17:43 Urine Protein >=300 mg/dL (Neg-Trace) H 11/13/18 17:43 Urine Ketones Trace mg/dL (Negative) H 11/13/18 17:43 Urine Blood Moderate (Negative) H 11/13/18 17:43 Urine Bilirubin Small (Negative) H 11/13/18 17:43 Ur Leukocyte Esterase Large (Negative) H 11/13/18 17:43 Urine Microscopic RBC 50-100 per hpf (0-3) H 11/13/18 17:43 Urine Microscopic WBC TNTC per hpf (0-3) H 11/13/18 17:43 Ur Squamous Epith Cells Many per lpf (None-Few) H 11/13/18 17:43 Urine Bacteria Many per hpf (None-Few) H 11/13/18 17:43 Ur Culture Indicated? NO. (NO) A 11/13/18 17:43 Streptococcus sp PCR DETECTED (Not Detect) A 11/13/18 18:07 Group A Strep DNA DETECTED (Not Detect) A 11/13/18 18:07 Diabetes panel 11/13/18 11/14/18 Range/Units 18:12 04:50 Sodium 132 L 134 L (136-145) mEq/L Potassium 4.2 4.2 (3.5-5.1) mEq/L Chloride 98 99 (98-107) mEq/L Carbon Dioxide 23 23 (23-29) mEq/L BUN 33 H 32 H (8-23) mg/dL Creatinine 1.31 H 1.41 H (0.70-1.30) mg/dL Glucose 180 H 165 H (70-105) mg/dL Calcium 9.0 9.3 (8.6-10.3) mg/dL AST 16 (13-39) Units/L ALT 12 (7-52) Units/L Alkaline Phosphatase 66 (34-104) Units/L Albumin 3.3 L (3.5-5.7) g/dL Calcium panel 11/13/18 11/14/18 Range/Units 18:12 04:50 Calcium 9.0 9.3 (8.6-10.3) mg/dL Phosphorus 2.3 L (2.7-4.5) mg/dL Albumin 3.3 L (3.5-5.7) g/dL Pituitary panel 11/13/18 11/14/18 Range/Units 18:12 04:50 Sodium 132 L 134 L (136-145) mEq/L Potassium 4.2 4.2 (3.5-5.1) mEq/L Chloride 98 99 (98-107) mEq/L Carbon Dioxide 23 23 (23-29) mEq/L BUN 33 H 32 H (8-23) mg/dL Creatinine 1.31 H 1.41 H (0.70-1.30) mg/dL Glucose 180 H 165 H (70-105) mg/dL Calcium 9.0 9.3 (8.6-10.3) mg/dL Adrenal panel 11/13/18 11/14/18 Range/Units 18:12 04:50 Sodium 132 L 134 L (136-145) mEq/L Potassium 4.2 4.2 (3.5-5.1) mEq/L Chloride 98 99 (98-107) mEq/L Carbon Dioxide 23 23 (23-29) mEq/L BUN 33 H 32 H (8-23) mg/dL Creatinine 1.31 H 1.41 H (0.70-1.30) mg/dL Glucose 180 H 165 H (70-105) mg/dL Calcium 9.0 9.3 (8.6-10.3) mg/dL Total Bilirubin 0.8 (0.3-1.0) mg/dL AST 16 (13-39) Units/L ALT 12 (7-52) Units/L Alkaline Phosphatase 66 (34-104) Units/L Albumin 3.3 L (3.5-5.7) g/dL All other labs normal.
--- NOTE | 2018-11-14 08:16 | Event Note ---
Date of Encounter: 11/14/18 Time of Encounter: 08:15 Mr. Wright is a 68 year old male with a history of urinary retention, recurrent pseudomonas UTI, hypertension, COPD, combined systolic/diastolic heart failure, diabetes who presented from the [facility] due to altered mental status and concerns for UTI. Patient was found to be septic secondary to urinary tract infection. Blood cultures grew GPC 1/2. Urology was consulted due to his chronic indwelling urinary catheter. Upon examination of the patient he is alert and oriented times 2. He is having some labored breathing piece stated that this is his baseline and he is normally on oxygen. He denies fever, chills, dysuria, suprapubic pain, shortness of breath, chest pain, palpitations. His only request is Tylenol due to arthritis in his knees. Gen.: Vitals noted. No acute distress. AAOx2 (person, time) HEENT: oropharynx clear, Normocephalic, atraumatic Cardiac: RRR, no murmur, +S1/S2 Pulmonary: bilaterally mild wheezes, rales or rhonchi, equal chest expansion Abdomen: soft, nontender, Bowel sounds noted, no guarding MSK: ROM intact, no joint swelling noted Extremities: no BLE edema, nontender calf, no cyanosis or clubbing Neuro: moves all extremities, no focal deficits Psych: Appropriate mood and behavior Sepsis -patient presented meeting 4 SIRS criteria: temperature 101.4, HR 102, tachycardia 22, WBC 17, BP 86/47. Patient received fluids per sepsis protocol 30ml/kg. -likely secondary to urinary tract infection from chronic Harper catheter and possibly bacteremia -Max temperature within 24 hours 101.4F -hemodynamically stable -WBC 15.3 (17) -lactic acid 0.8 -11/13/2018 blood culture growing GPC group A -urinalysis showing blood, RBC 50-100, positive leukocyte esterase and WBC's plan: -continue Zosyn -blood culture pending -urine culture pending -continue monitor CBC Catheter associated Urinary tract infection -patient has history of frequent urinary tract infections with most recent having pseudomonas -chronic Harper catheter -urology following, appreciate recommendations on exchanging the Harper catheter -urinalysis showing blood, RBC 50-100, positive leukocyte esterase and WBC's Plan: -urine culture pending -continue Zosyn after reviewing that last urine culture grew Pseudomonas him susceptible to Zosyn Bacteremia -consider possible contaminate versus secondary to UTI -11/13/2018 blood culture growing GPC group A -continue Zosyn -repeat blood culture metabolic encephalopathy -secondary to sepsis secondary to urinary tract infection -head CT negative for acute intracranial normality -patient is alert and oriented to person and time -will continue to monitor congestive heart failure -patient with history of CHF taking carvedilol and Lasix -12/11/2016 TTE: suboptimal, with Definity LV systolic function appears normal. Doppler evidence for borderline aortic stenosis. -BNP 626 -chest x-ray showing pulmonary edema -mild bilateral wheezing on exam plan: -will continue Lasix 20mg -strict I&O -fluid restriction elevated troponin -patient denies chest pain -EKG NSR no ST or T wave changes indicating ischemia -troponin 0.04> 0.05> 0.04 adynamic and flat this is likely secondary to demand ischemia and the setting of sepsis -continue to monitor tinea Barbae -patient had evidence of tinea exam -will continue to check and will treat as necessary COPD -not an exacerbation -history of COPD on oxygen 2 L normally -continue home spiriva -continue duonebs -continue supplemental oxygen and taper back to home 2 L as able type II diabetes -history of diabetes taking insulin -glucose controlled -continue low-dose sliding scale insulin -continue Accu check -diabetic diet when able hypertension -was held due to hypotension -home medications of carvedilol, Lasix -blood pressure stable DVT prophylaxis SCD
[2018-11-14] MEDS ORDERED: Levofloxacin 750 MG/150 ML 750 MG/150 ML BAG IVPB SCH (09:00)
[2018-11-14] MEDS ORDERED: Acetaminophen 325 MG TABLET PO PRN (09:05)
[2018-11-14 09:31] LABS: Acinetobacter baumannii by PCR Not Detected (Not Detect); Candida albicans by PCR Not Detected (Not Detect); Candida glabrata by PCR Not Detected (Not Detect); Candida krusei by PCR Not Detected (Not Detect); Candida parapsilosis by PCR Not Detected (Not Detect); Candida tropicalis by PCR Not Detected (Not Detect); Enterobacter cloacae Cmplx PCR Not Detected (Not Detect); Enterobacteriaceae by PCR Not Detected (Not Detect); Enterococcus by PCR Not Detected (Not Detect); Escherichia coli by PCR Not Detected (Not Detect); Klebsiella oxytoca by PCR Not Detected (Not Detect); Klebsiella pneumoniae by PCR Not Detected (Not Detect); Proteus by PCR Not Detected (Not Detect); Pseudomonas aeruginosa by PCR Not Detected (Not Detect); Serratia marcescens by PCR Not Detected (Not Detect); Staphylococcus aureus by PCR Not Detected (Not Detect); Staphylococcus by PCR Not Detected (Not Detect); Streptococcus agalactiae(B)PCR Not Detected (Not Detect); Streptococcus by PCR DETECTED (Not Detect); Streptococcus pneumoniae PCR Not Detected (Not Detect); Streptococcus pyogenes (A) PCR DETECTED (Not Detect)
[2018-11-14] MEDS: Aspirin Enteric Coated 81 MG Tablet PO SCH (09:54)
[2018-11-14] MEDS: Nystatin Cream 15 GM TUBE TP SCH ×2 (09:55→21:32)
[2018-11-14] MEDS ORDERED: Aminoglycoside Consult 1 EACH MC ONE (13:42)
[2018-11-14] MEDS: Gabapentin 300 MG CAPSULE PO SCH ×2 (15:57→21:32)
--- NOTE | 2018-11-14 16:07 | Electrocardiograph Report ---
[place] [id number] Test Date: 2018-11-13 Pat Name: Angel Wright Department: EXAMC2 Room: 2N14 Gender: M Inspector Rag Sorting: : 1950 Requested By: Rafael Estrada Order Number: [id number] Reading MD: Felisha Iverson Measurements Intervals [place] Rate: 100 P: 69 WV: 182 QRS: -61 QRSD: 93 T: 112 QT: 335 QTc: 432 Interpretive Statements Sinus tachycardia Inferior infarct, old Anterior infarct, old Electronically Signed On 11-14-2018 16:06:47 EDT by Felisha Iverson
[2018-11-14] MEDS ORDERED: traZODone 50 MG TABLET PO SCH (21:00)
[2018-11-14] MEDS ORDERED: Insulin NPH 100 UNIT/ML (x5UNIT) SQ SCH (21:00)
[2018-11-14] MEDS ORDERED: rOPINIRole 0.25 MG TABLET PO SCH (21:00)
[2018-11-14] MEDS ORDERED: Insulin LISPRO 300 UNITS/3 ML VIAL SQ SCH (21:00)
[2018-11-15] MEDS: Piperacillin/Tazobactam 3.375 GM in 0.9 % Sodium Chloride Mini Bag 100 ML IVPB SCH ×4 (00:24→23:35)
[2018-11-15] MEDS: Ipratropium/Albuterol Neb 3 ML IH SCH ×4 (03:29→22:01)
[2018-11-15] MEDS: Aspirin Enteric Coated 81 MG Tablet PO SCH (08:10)
[2018-11-15] MEDS: Gabapentin 300 MG CAPSULE PO SCH ×3 (08:10→21:43)
[2018-11-15] MEDS: Furosemide 20 MG/2 ML VIAL IVP SCH (08:10)
[2018-11-15 08:11] LABS: Basophils % 0.3 %; Eosinophils % 0.2 %; Hematocrit 35.8 % (37.5-50.1); Hemoglobin 10.9 g/dL (12.9-16.9); Immature Granulocytes % 1.4 % (0-4); Lymphocytes # 1.3 K/mcL (0.6-4.6); Lymphocytes % 10.3 %; Mean Corpuscular HGB Conc 30.4 g/dL (31.6-35.5); Mean Corpuscular Hemoglobin 25.6 pg (28.0-33.3); Mean Platelet Volume 10.5 fL (9.4-12.4); Monocytes # 0.8 K/mcL (0.0-1.3); Monocytes % 6.5 %; Neutrophils # 10.1 K/mcL (1.6-8.9); Platelet Count 168 K/mcL (140-400); Red Blood Count 4.26 M/mcL (4.19-5.50); Red Cell Distribution Width 16.8 % (11.5-14.5); Segmented Neutrophils % 81.3 %
[2018-11-15] MEDS: Nystatin Cream 15 GM TUBE TP SCH ×2 (08:11→21:50)
[2018-11-15] MEDS: Insulin LISPRO 300 UNITS/3 ML VIAL SQ SCH ×4 (08:11→21:45)
--- NOTE | 2018-11-15 08:22 | Event Note ---
Date of Encounter: 11/15/18 Time of Encounter: 08:19 She was seen and examined. I agree with approximately as written by the resident physician. Patient is afebrile. On chronic O2. Feels well. More awake. Admitted some sepsis and metabolic encephalopathy. Being treated for UTI. Blood cultures came back positive for and positive cocci and is on Zosyn since yesterday. Urology is evaluating him for his chronic Harper and there is no indication to be removed or changed at this point. GEN: NAD CVS: RRR. S1, S2, No m/r/g RESP: CTAB ABD: Soft, NT, ND, +BS EXT: No edema. 2+ DP. No rashes NEURO: Nonfocal Repeat blood cultures Seems to have group A strep. Continue IV Zosyn Follow-up on finalized blood cultures Follow-up on urine cultures Monitor mental status. Likely metabolic. CT head is negative. Improving Resume home meds DVT prophylaxis
--- NOTE | 2018-11-15 08:24 | Internal Med Progress Note ---
<Karla Palacio - Last Filed: 11/15/18 08:26> Hospitalist Progress Note - Encounter Date of Encounter: 11/15/18 Time of Encounter: 08:15 - Subjective Interval History: Mr. Wright is a 68 year old male with a history of urinary retention, recurrent pseudomonas UTI, hypertension, COPD, combined systolic/diastolic heart failure, diabetes who [facility] due to altered mental status and concerns for UTI. Patient was found to be septic secondary to urinary tract infection. Blood cultures grew GPC 1/2. Urology was consulted due to his chronic indwelling urinary catheter. - Exam Vitals: Temp Pulse Resp BP Pulse Ox 98.9 F 82 18 99/51 94 11/15/18 07:25 11/15/18 07:25 11/15/18 07:25 11/15/18 07:25 11/15/18 07:25 Exam: Gen.: Vitals noted. No acute distress. AAOx3 HEENT: oropharynx clear, Normocephalic, atraumatic Cardiac: RRR, pansystolic murmur, +S1/S2 Pulmonary: bilaterally wheezes and rales, no rhonchi, equal chest expansion Abdomen: soft, nontender, Bowel sounds noted, no guarding MSK: ROM intact, no joint swelling noted Extremities: no BLE edema, nontender calf, no cyanosis or clubbing Neuro: A&Ox3, moves all extremities, no focal deficits Psych: Appropriate mood and behavior - Assessment and Plan (1) Sepsis Current Visit: No Status: Acute Assessment and Plan: -patient presented meeting 4 SIRS criteria: temperature 101.4, HR 102, tachycardia 22, WBC 17, BP 86/47. Patient received fluids per sepsis protocol 30ml/kg. -likely secondary to urinary tract infection from chronic Harper catheter and possibly bacteremia -Max temperature within 24 hours 101.4F -hemodynamically stable -WBC 12.4 (17) -lactic acid 0.8 -11/13/2018 blood culture growing GPC group A 1/2 -urinalysis showing blood, RBC 50-100, positive leukocyte esterase and WBC's plan: -continue Zosyn day 2 -blood culture pending -urine culture pending -continue monitor CBC (2) Catheter-associated urinary tract infection Current Visit: Yes Status: Acute Assessment and Plan: -patient has history of frequent urinary tract infections with most recent having pseudomonas -chronic Harper catheter -urology following, appreciate recommendations on exchanging the Harper catheter -urinalysis showing blood, RBC 50-100, positive leukocyte esterase and WBC's Plan: -urine culture pending -continue Zosyn after reviewing that last urine culture grew Pseudomonas him susceptible to Zosyn (3) Metabolic encephalopathy Current Visit: Yes Status: Acute Assessment and Plan: Improved -secondary to sepsis secondary to urinary tract infection -head CT negative for acute intracranial normality -patient is alert and oriented to person and time -will continue to monitor (4) Elevated troponin Current Visit: No Status: Acute Assessment and Plan: -patient denies chest pain -EKG NSR no ST or T wave changes indicating ischemia -troponin 0.04> 0.05> 0.04 adynamic and flat this is likely secondary to demand ischemia and the setting of sepsis -continue to monitor (5) Combined systolic and diastolic heart failure, acute Current Visit: No Status: Acute Assessment and Plan: patient with history of CHF taking carvedilol and Lasix -12/11/2016 TTE: suboptimal, with Definity LV systolic function appears normal. Doppler evidence for borderline aortic stenosis. -BNP 626 -chest x-ray showing pulmonary edema -mild bilateral wheezing on exam plan: -will continue Lasix 20mg daily -one-time dose of Lasix 40 p.o -strict I&O -fluid restriction 1500cc (6) Morbid obesity with BMI of 45.0-49.9, adult Current Visit: No Status: Chronic Assessment and Plan: Lifestyle changes (7) Hypertension Current Visit: No Status: Chronic Assessment and Plan: -was held due to hypotension -home medications of carvedilol, Lasix -blood pressure stable (8) T2DM (type 2 diabetes mellitus) Current Visit: No Status: Acute Assessment and Plan: -history of diabetes taking insulin -glucose controlled -continue basal insulin -continue low-dose sliding scale insulin -continue Accu check -diabetic diet when able (9) COPD (chronic obstructive pulmonary disease) Current Visit: No Status: Chronic Assessment and Plan: History of COPD on 2 L oxygen continuous -not an exacerbation -history of COPD on oxygen 2 L normally -continue home spiriva -continue duonebs -continue supplemental oxygen and taper back to home 2 L as able (10) DVT prophylaxis Current Visit: No Status: Acute Assessment and Plan: SCD (11) Tinea barbae Current Visit: Yes Status: Acute Assessment and Plan: -patient had evidence of tinea exam -will continue to check and will treat as necessary -nystatin ordered (12) Bacteremia Current Visit: Yes Status: Acute Assessment and Plan: -consider possible contaminate versus secondary to UTI -11/13/2018 blood culture growing GPC group Av1/2 -continue Zosyn -await blood culture - Time Spent with Patient Total time spent is greater than 50% in coordination of care (as documented) at patient's floor/unit and/or counseling patient: Internal Medicine: Result - Labs CBC & Chem 7: 11/15/18 07:50 11/14/18 04:50 Labs: Short CBC 11/15/18 Range/Units 07:50 WBC 12.4 H (4.3-11.1) K/mcL Hgb 10.9 L (12.9-16.9) g/dL Hct 35.8 L (37.5-50.1) % Plt Count 168 (140-400) K/mcL Neutrophils # 10.1 H (1.6-8.9) K/mcL Cardiac Enzymes 11/14/18 Range/Units 11:43 Troponin I 0.04 H* (< 0.04) ng/mL - ABG Interpretation ABG results: ABG ABG pH 7.50 pH Units (7.32-7.45) H 11/14/18 06:01 ABG pCO2 28 mmHg (35-45) L 11/14/18 06:01 ABG pO2 84 mmHg (85-104) L 11/14/18 06:01 ABG O2 Saturation 97 % (95-98) 11/14/18 06:01 PT/INR, D-dimer PT 16.6 Seconds (9.4-12.1) H 11/13/18 18:12 Consult Discharge Plan - Plan Referrals: Ander Blankenship MD [Primary Care Provider] - <Verna Davis - Last Filed: 11/15/18 10:08> Hospitalist Progress Note - Encounter Date of Encounter: 11/15/18 - Exam Vitals: Temp Pulse Resp BP Pulse Ox 98.9 F 82 18 99/51 94 11/15/18 07:25 11/15/18 07:25 11/15/18 07:25 11/15/18 07:25 11/15/18 07:25 - Assessment and Plan (1) COPD (chronic obstructive pulmonary disease) Current Visit: No Status: Chronic (2) DVT prophylaxis Current Visit: No Status: Acute (3) Elevated troponin Current Visit: No Status: Acute (4) Morbid obesity with BMI of 45.0-49.9, adult Current Visit: No Status: Chronic (5) Combined systolic and diastolic heart failure, acute Current Visit: No Status: Acute (6) Sepsis Current Visit: No Status: Acute (7) Hypertension Current Visit: No Status: Chronic (8) T2DM (type 2 diabetes mellitus) Current Visit: No Status: Acute (9) Catheter-associated urinary tract infection Current Visit: Yes Status: Acute (10) Metabolic encephalopathy Current Visit: Yes Status: Acute (11) Tinea barbae Current Visit: Yes Status: Acute (12) Bacteremia Current Visit: Yes Status: Acute (13) Chronic respiratory failure Current Visit: Yes Status: Acute - Time Spent with Patient Total time spent is greater than 50% in coordination of care (as documented) at patient's floor/unit and/or counseling patient: Internal Medicine: Result - Labs CBC & Chem 7: 11/15/18 07:50 11/15/18 07:50 Labs: Short CBC 11/15/18 Range/Units 07:50 WBC 12.4 H (4.3-11.1) K/mcL Hgb 10.9 L (12.9-16.9) g/dL Hct 35.8 L (37.5-50.1) % Plt Count 168 (140-400) K/mcL Neutrophils # 10.1 H (1.6-8.9) K/mcL BMP 11/15/18 07:50 Sodium 132 L Potassium 3.9 Chloride 97 L Carbon Dioxide 27 BUN 26 H Creatinine 1.17 Glucose 146 H Calcium 8.8 Cardiac Enzymes 11/14/18 Range/Units 11:43 Troponin I 0.04 H* (< 0.04) ng/mL - ABG Interpretation ABG results: ABG ABG pH 7.50 pH Units (7.32-7.45) H 11/14/18 06:01 ABG pCO2 28 mmHg (35-45) L 11/14/18 06:01 ABG pO2 84 mmHg (85-104) L 11/14/18 06:01 ABG O2 Saturation 97 % (95-98) 11/14/18 06:01 PT/INR, D-dimer PT 16.6 Seconds (9.4-12.1) H 11/13/18 18:12 <Karla Palacio - Last Filed: 11/15/18 08:26> (1) Sepsis Qualifiers: Sepsis type: sepsis due to unspecified organism Qualified Code(s): A41.9 - Sepsis, unspecified organism (2) Catheter-associated urinary tract infection Qualifiers: Indwelling urinary catheter type: indwelling urethral catheter Encounter type: initial encounter Qualified Code(s): T83.511A - Infection and inflammatory reaction due to indwelling urethral catheter, initial encounter; N39.0 - Urinary tract infection, site not specified (7) Hypertension Qualifiers: Hypertension type: essential hypertension Qualified Code(s): I10 - Essential (primary) hypertension (8) T2DM (type 2 diabetes mellitus) Qualifiers: Diabetes mellitus terminal press operator insulin use: with terminal press operator use Diabetes mellitus complication status: without complication Qualified Code(s): E11.9 - Type 2 diabetes mellitus without complications; Z79.4 - penitentiary (current) use of insulin (9) COPD (chronic obstructive pulmonary disease) Qualifiers: COPD type: unspecified COPD Qualified Code(s): J44.9 - Chronic obstructive pulmonary disease, unspecified <Verna Davis M - Last Filed: 11/15/18 10:08> (1) COPD (chronic obstructive pulmonary disease) Qualifiers: COPD type: unspecified COPD Qualified Code(s): J44.9 - Chronic obstructive pulmonary disease, unspecified (6) Sepsis Qualifiers: Sepsis type: sepsis due to unspecified organism Qualified Code(s): A41.9 - Sepsis, unspecified organism (7) Hypertension Qualifiers: Hypertension type: essential hypertension Qualified Code(s): I10 - Essential (primary) hypertension (8) T2DM (type 2 diabetes mellitus) Qualifiers: Diabetes mellitus residential insulin use: with residential use Diabetes mellitus complication status: without complication Qualified Code(s): E11.9 - Type 2 diabetes mellitus without complications; Z79.4 - terminal press operator (current) use of insulin (9) Catheter-associated urinary tract infection Qualifiers: Indwelling urinary catheter type: indwelling urethral catheter Encounter type: initial encounter Qualified Code(s): T83.511A - Infection and inflammatory reaction due to indwelling urethral catheter, initial encounter; N39.0 - Urinary tract infection, site not specified (13) Chronic respiratory failure Qualifiers: Respiratory failure complication: unspecified whether with hypoxia or hypercapnia Qualified Code(s): J96.10 - Chronic respiratory failure, unspecified whether with hypoxia or hypercapnia
[2018-11-15 08:29] LABS: BUN/Creatinine Ratio 22 (6-26); Blood Urea Nitrogen 26 mg/dL (8-23); Calcium 8.8 mg/dL (8.6-10.3); Carbon Dioxide 27 mEq/L (23-29); Chloride 97 mEq/L (98-107); Glucose 146 mg/dL (70-105); Osmolality,Calculated 281 (280-300); Potassium 3.9 mEq/L (3.5-5.1); Sodium 132 mEq/L (136-145); eGFR For Non-African Americans > 60 (> 60)
[2018-11-15] MEDS ORDERED: (Fluticasone/Umeclidin/Vilanter [Trelegy Ellipta 100- IH SCH (09:00)
[2018-11-15] MEDS ORDERED: Insulin NPH 100 UNIT/ML (x5UNIT) SQ SCH (09:00)
[2018-11-15] MEDS ORDERED: Fluticasone Propionate Nasal 50 MCG/SPRAY BOTTLE NS SCH (09:00)
[2018-11-15] MEDS ORDERED: Furosemide 40 MG TABLET PO SCH (09:00)
--- NOTE | 2018-11-15 09:06 | Urology Progress Note ---
<Jose GuadalupegideonSue granda N - Last Filed: 11/15/18 09:04> Date of Encounter: 11/15/18 Time of Encounter: 08:20 - Assessment and Plan (1) Catheter-associated urinary tract infection Current Visit: Yes Status: Acute Assessment and plan: Patient is a 68-year-old male who presents with a urinary tract infection with chronic indwelling Harper catheter. Vital signs are currently stable and afebrile. White blood cell count is trending down to 12.4. Serum creatinine is improved to 1.17. Blood culture is positive for gram-positive cocci. Urine culture is pending. Patient is receiving IV Zosyn and has received IV vancomyc in. Plan to continue with IV antibiotics and await final culture and sensitivity reports. Patient may undergo catheter change ECF as planned. Urology will sign off, but we are always available as needed. 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 There is no urgent urologic surgical intervention needed at this time. We will discuss management at outpatient follow-up. Qualifiers: Encounter type: subsequent encounter Qualified Code(s): T83.89XD - Other specified complication of genitourinary prosthetic devices, implants and grafts, subsequent encounter; N36.8 - Other specified disorders of urethra (3) Urinary retention Current Visit: Yes Status: Acute Assessment and plan: Patient is a 68-year-old male who presents with urinary retention. Patient has a chronic indwelling Harper catheter. We will continue with monthly catheter changes as planned. Progress Note Subjective: no new complaints, feels better Narrative: Patient seen and examined lying in left lateral position in bed in no apparent distress. Patient reports he is feeling much better and respirations have improved. Harper catheter is indwelling and draining transparent, clear yellow urine into bedside bag. Objective Initial Vital Signs Temp Pulse Resp BP Pulse Ox 101.4 F H 102 22 86/47 94 11/13/18 18:13 11/13/18 18:13 11/13/18 18:13 11/13/18 18:13 11/13/18 18:13 - General physical appearance Present: no distress, no pain, obese - Respiratory Present: normal expansion, normal respiratory effort - Abdomen Present: soft, non tender - Genitourinary Urine Appearance: Present: Clear, Sediment (Scant). Absent: Purulent, Hematuria, Small Blood Clots - Integumentary Present: no rash, no abnormal pigmentation - Musculoskeletal Present: normal posture - Psychiatric Present: oriented to time, oriented to person, oriented to place, speech is normal, memory intact - Labs 11/15/18 07:50 11/15/18 07:50 Diabetes panel 11/15/18 Range/Units 07:50 Sodium 132 L (136-145) mEq/L Potassium 3.9 (3.5-5.1) mEq/L Chloride 97 L (98-107) mEq/L Carbon Dioxide 27 (23-29) mEq/L BUN 26 H (8-23) mg/dL Creatinine 1.17 (0.70-1.30) mg/dL Glucose 146 H (70-105) mg/dL Calcium 8.8 (8.6-10.3) mg/dL Calcium panel 11/15/18 Range/Units 07:50 Calcium 8.8 (8.6-10.3) mg/dL Pituitary panel 11/15/18 Range/Units 07:50 Sodium 132 L (136-145) mEq/L Potassium 3.9 (3.5-5.1) mEq/L Chloride 97 L (98-107) mEq/L Carbon Dioxide 27 (23-29) mEq/L BUN 26 H (8-23) mg/dL Creatinine 1.17 (0.70-1.30) mg/dL Glucose 146 H (70-105) mg/dL Calcium 8.8 (8.6-10.3) mg/dL Adrenal panel 11/15/18 Range/Units 07:50 Sodium 132 L (136-145) mEq/L Potassium 3.9 (3.5-5.1) mEq/L Chloride 97 L (98-107) mEq/L Carbon Dioxide 27 (23-29) mEq/L BUN 26 H (8-23) mg/dL Creatinine 1.17 (0.70-1.30) mg/dL Glucose 146 H (70-105) mg/dL Calcium 8.8 (8.6-10.3) mg/dL Consult Discharge Plan - Plan Referrals: Ander Blankenship MD [Primary Care Provider] - <Campos Concepcion - Last Filed: 11/15/18 13:51> Date of Encounter: 11/15/18 - Assessment and Plan (1) Leukocytosis Current Visit: Yes Status: Acute Qualifiers: Leukocytosis type: unspecified Qualified Code(s): D72.829 - Elevated white blood cell count, unspecified (2) Catheter-associated urinary tract infection Current Visit: Yes Status: Acute Qualifiers: Indwelling urinary catheter type: indwelling urethral catheter Encounter type: initial encounter Qualified Code(s): T83.511A - Infection and inflammatory reaction due to indwelling urethral catheter, initial encounter; N39.0 - Urinary tract infection, site not specified (3) Urinary retention Current Visit: No Status: Acute (4) 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 Patient not seen. Agree with plan as written. Keep scheduled follow-up. Objective Initial Vital Signs Temp Pulse Resp BP Pulse Ox 101.4 F H 102 22 86/47 94 11/13/18 18:13 11/13/18 18:13 11/13/18 18:13 11/13/18 18:13 11/13/18 18:13 - Labs 11/15/18 07:50 11/15/18 07:50 Diabetes panel 11/15/18 Range/Units 07:50 Sodium 132 L (136-145) mEq/L Potassium 3.9 (3.5-5.1) mEq/L Chloride 97 L (98-107) mEq/L Carbon Dioxide 27 (23-29) mEq/L BUN 26 H (8-23) mg/dL Creatinine 1.17 (0.70-1.30) mg/dL Glucose 146 H (70-105) mg/dL Calcium 8.8 (8.6-10.3) mg/dL Calcium panel 11/15/18 Range/Units 07:50 Calcium 8.8 (8.6-10.3) mg/dL Pituitary panel 11/15/18 Range/Units 07:50 Sodium 132 L (136-145) mEq/L Potassium 3.9 (3.5-5.1) mEq/L Chloride 97 L (98-107) mEq/L Carbon Dioxide 27 (23-29) mEq/L BUN 26 H (8-23) mg/dL Creatinine 1.17 (0.70-1.30) mg/dL Glucose 146 H (70-105) mg/dL Calcium 8.8 (8.6-10.3) mg/dL Adrenal panel 11/15/18 Range/Units 07:50 Sodium 132 L (136-145) mEq/L Potassium 3.9 (3.5-5.1) mEq/L Chloride 97 L (98-107) mEq/L Carbon Dioxide 27 (23-29) mEq/L BUN 26 H (8-23) mg/dL Creatinine 1.17 (0.70-1.30) mg/dL Glucose 146 H (70-105) mg/dL Calcium 8.8 (8.6-10.3) mg/dL
[2018-11-15] MEDS ORDERED: Tiotropium 18 MCG inhalation IH SCH (10:00)
[2018-11-15] MEDS ORDERED: D5% in Water 1,000 ML IVC PRN (14:58)
[2018-11-15] MEDS ORDERED: Desitin (Zinc Oxide) 56 GM TUBE TP PRN (14:58)
[2018-11-15] MEDS ORDERED: Dextrose Gel 15 GM/37.5 ML TUBE PO PRN ×2 (14:58)
[2018-11-15] MEDS ORDERED: *HR* Dextrose 50 % in Water (Syg) 50 ML SYRINGE IVP PRN (14:58)
[2018-11-15] MEDS: Acetaminophen 325 MG TABLET PO PRN (17:27)
[2018-11-15] MEDS ORDERED: Saline Nasal Spray 44 ML BOTTLE NS PRN (19:27)
[2018-11-15] MEDS: traZODone 50 MG TABLET PO SCH (21:44)
[2018-11-15] MEDS: rOPINIRole 0.25 MG TABLET PO SCH (21:44)
[2018-11-15] MEDS: Insulin NPH 100 UNIT/ML (x5UNIT) SQ SCH (21:46)
[2018-11-16] MEDS: Acetaminophen 325 MG TABLET PO PRN (02:59)
[2018-11-16] MEDS: Ipratropium/Albuterol Neb 3 ML IH SCH ×2 (03:28→09:42)
[2018-11-16] MEDS: Piperacillin/Tazobactam 3.375 GM in 0.9 % Sodium Chloride Mini Bag 100 ML IVPB SCH ×2 (08:03→16:51)
[2018-11-16] MEDS: Insulin LISPRO 300 UNITS/3 ML VIAL SQ SCH ×4 (08:05→22:19)
[2018-11-16] MEDS: Gabapentin 300 MG CAPSULE PO SCH ×3 (08:05→22:19)
[2018-11-16] MEDS: Aspirin Enteric Coated 81 MG Tablet PO SCH (08:05)
[2018-11-16] MEDS: Insulin NPH 100 UNIT/ML (x5UNIT) SQ SCH ×2 (08:06→22:18)
--- NOTE | 2018-11-16 08:26 | Internal Med Progress Note ---
<Karla Palacio - Last Filed: 11/16/18 14:38> Hospitalist Progress Note - Encounter Date of Encounter: 11/16/18 Time of Encounter: 08:25 - Subjective Interval History: Mr. Wright is a 68 year old male with a history of urinary retention, recurrent pseudomonas UTI, hypertension, COPD, combined systolic/diastolic heart failure, diabetes who presented from the ECF due to altered mental status and concerns for UTI. Patient was found to be septic secondary to urinary tract infection. Blood cultures grew GPC 1/2. Urology was consulted due to his chronic indwelling urinary catheter for which they will replace outpatient since it was just replaced recently. Today, patient is resting comfortably in bed. He denies fever, chills, dysuria, abdominal pain, diarrhea, shortness of breath. He has no complaints. Will await urine culture sensitivity and likely discharge tomorrow on oral antibiotics back to the ECF. - Exam Vitals: Temp Pulse Resp BP Pulse Ox 97.7 F 64 16 100/63 93 11/16/18 07:58 11/16/18 07:58 11/16/18 07:58 11/16/18 07:58 11/16/18 07:58 Exam: Gen.: Vitals noted. No acute distress. AAOx3 HEENT: oropharynx clear, Normocephalic, atraumatic Cardiac: RRR, no murmur, +S1/S2 Pulmonary: bilaterally wheezes, rales or rhonchi, equal chest expansion Abdomen: soft, nontender, Bowel sounds noted, no guarding skin: erythema around testicles, Harper catheter in place Extremities: no BLE edema, nontender calf, no cyanosis or clubbing Neuro: A&Ox3, moves all extremities, no focal deficits Psych: Appropriate mood and behavior - Assessment and Plan (1) Sepsis Current Visit: No Status: Acute Assessment and Plan: -patient presented meeting 4 SIRS criteria: temperature 101.4, HR 102, tachycardia 22, WBC 17, BP 86/47. Patient received fluids per sepsis protocol 30ml/kg. -likely secondary to urinary tract infection from chronic Harper catheter and possibly bacteremia -Max temperature within 24 hours 101.4F -hemodynamically stable -WBC 12.4 (17) -lactic acid 0.8 -11/13/2018 blood culture growing GPC group A strep 1/2 -11/15/2018 blood cultures no growth to date -urine culture growing gram-negative stephanie -urinalysis showing blood, RBC 50-100, positive leukocyte esterase and WBC's plan: -continue Zosyn day 3. Will await urine culture sensitivity to switch to PO antibiotics. -blood culture pending -urine culture sensitivity pending (2) Catheter-associated urinary tract infection Current Visit: Yes Status: Acute Assessment and Plan: -patient has history of frequent urinary tract infections with most recent having pseudomonas -chronic Harper catheter is likely the contributor -urology following, and stated the fully catheter did not need to be exchanged since it was recently already replaced. -urinalysis showing blood, RBC 50-100, positive leukocyte esterase and WBC's -urine culture growing gram-negative stephanie Plan: -urine culture sensitivity pending -continue Zosyn after reviewing that last urine culture grew Pseudomonas him susceptible to Zosyn -urology to follow-up outpatient -Harper catheter can remain in place and be exchanged at a later time sensitive is just replaced (3) Bacteremia Current Visit: Yes Status: Acute Assessment and Plan: -Most likely a contaminate. Consider possibly secondary to UTI -11/13/2018 blood culture growing GPC group A strep pyogenes 1/2 -11/15/2018 blood cultures no growth today -continue Zosyn -await blood culture (4) Combined systolic and diastolic heart failure, acute Current Visit: No Status: Acute Assessment and Plan: patient with history of CHF taking carvedilol and Lasix -12/11/2016 TTE: suboptimal, with Definity LV systolic function appears normal. Doppler evidence for borderline aortic stenosis. -BNP 626 -I&O: 1370/850 + 520 -chest x-ray showing pulmonary edema -mild bilateral wheezing on exam, improving plan: -continue home Lasix 40 mg PO. Stopped IV Lasix -strict I&O -fluid restriction 1500cc (5) Metabolic encephalopathy Current Visit: Yes Status: Acute Assessment and Plan: Resolved -secondary to sepsis secondary to urinary tract infection -head CT negative for acute intracranial normality -patient is alert and oriented to person and time -will continue to monitor (6) Chronic respiratory failure Current Visit: Yes Status: Acute Assessment and Plan: Patient has chronic respiratory failure secondary to COPD and CHF. -Patient appeared to have mild CHF exacerbation likely related to noncompliance with diet and fluid intake -continue home Lasix. Stopped IV Lasix -fluid restrictive diet -monitor I&O -continue supplemental oxygen -will continue to monitor (7) Tinea barbae Current Visit: Yes Status: Acute Assessment and Plan: -patient had evidence of tinea exam -will continue to check and will treat as necessary -nystatin ordered (8) COPD (chronic obstructive pulmonary disease) Current Visit: No Status: Chronic Assessment and Plan: History of COPD on 2 L oxygen continuous -not an exacerbation -history of COPD on oxygen 2 L normally -continue home spiriva -continue duonebs (9) T2DM (type 2 diabetes mellitus) Current Visit: No Status: Acute Assessment and Plan: -history of diabetes taking insulin -glucose controlled -continue basal insulin -continue low-dose sliding scale insulin -continue Accu check -diabetic diet when able (10) Morbid obesity with BMI of 45.0-49.9, adult Current Visit: No Status: Chronic Assessment and Plan: Lifestyle changes (11) Elevated troponin Current Visit: No Status: Acute Assessment and Plan: -this is likely secondary to demand ischemia and the setting of sepsis -patient denies chest pain -EKG NSR no ST or T wave changes indicating ischemia -troponin 0.04> 0.05> 0.04 adynamic and flat -continue to monitor (12) Hypertension Current Visit: No Status: Chronic Assessment and Plan: History of not hypertension -home medications of carvedilol, Lasix. Continuing -blood pressure stable (13) DVT prophylaxis Current Visit: No Status: Acute Assessment and Plan: SCD - Time Spent with Patient Total time spent is greater than 50% in coordination of care (as documented) at patient's floor/unit and/or counseling patient: Internal Medicine: Result - Labs CBC & Chem 7: 11/15/18 07:50 11/15/18 07:50 Labs: BMP 11/15/18 07:50 Sodium 132 L Potassium 3.9 Chloride 97 L Carbon Dioxide 27 BUN 26 H Creatinine 1.17 Glucose 146 H Calcium 8.8 - ABG Interpretation ABG results: ABG ABG pH 7.50 pH Units (7.32-7.45) H 11/14/18 06:01 ABG pCO2 28 mmHg (35-45) L 11/14/18 06:01 ABG pO2 84 mmHg (85-104) L 11/14/18 06:01 ABG O2 Saturation 97 % (95-98) 11/14/18 06:01 PT/INR, D-dimer PT 16.6 Seconds (9.4-12.1) H 11/13/18 18:12 Consult Discharge Plan - Plan Referrals: Ander Blankenship MD [Primary Care Provider] - <Polo Ponec - Last Filed: 11/16/18 15:03> Hospitalist Progress Note - Encounter Date of Encounter: 11/16/18 - Exam Vitals: Temp Pulse Resp BP Pulse Ox 97.7 F 64 16 100/63 94 11/16/18 07:58 11/16/18 07:58 11/16/18 09:42 11/16/18 07:58 11/16/18 09:42 - Assessment and Plan (1) COPD (chronic obstructive pulmonary disease) Current Visit: No Status: Chronic (2) DVT prophylaxis Current Visit: No Status: Acute (3) Elevated troponin Current Visit: No Status: Acute (4) Morbid obesity with BMI of 45.0-49.9, adult Current Visit: No Status: Chronic (5) Combined systolic and diastolic heart failure, acute Current Visit: No Status: Acute (6) Sepsis Current Visit: No Status: Acute (7) Hypertension Current Visit: No Status: Chronic (8) T2DM (type 2 diabetes mellitus) Current Visit: No Status: Acute (9) Catheter-associated urinary tract infection Current Visit: Yes Status: Acute (10) Metabolic encephalopathy Current Visit: Yes Status: Acute (11) Tinea barbae Current Visit: Yes Status: Acute (12) Bacteremia Current Visit: Yes Status: Acute (13) Chronic respiratory failure Current Visit: Yes Status: Acute - Time Spent with Patient Total time spent is greater than 50% in coordination of care (as documented) at patient's floor/unit and/or counseling patient: Internal Medicine: Result - Labs CBC & Chem 7: 11/15/18 07:50 11/15/18 07:50 - ABG Interpretation ABG results: ABG ABG pH 7.50 pH Units (7.32-7.45) H 11/14/18 06:01 ABG pCO2 28 mmHg (35-45) L 11/14/18 06:01 ABG pO2 84 mmHg (85-104) L 11/14/18 06:01 ABG O2 Saturation 97 % (95-98) 11/14/18 06:01 PT/INR, D-dimer PT 16.6 Seconds (9.4-12.1) H 11/13/18 18:12 - Attending Attestation I examined this patient and my medical decision-making was reviewed with the Resident Physician. I agree with the documented findings, disposition and treatment plan as described except to the extent set forth below. Patient seen and examined at bedside. Patient states that he feels better today. He states he feels less confused. Denies fever, chills. On exam abdomen is soft, nontender with normoactive bowel sounds, heart: regular rate and rhythm, alert and oriented 3, no acute distress Urinary tract infection secondary to chronic indwelling Harper catheter: Micro- results show gram-negative rods, awaiting final ID and sensitivity. We will tailor antibiotics based on final micro-results. Blood cultures: One out of 2 positive for group A strep, likely contaminant, repeat negative. <Karla Palacio - Last Filed: 11/16/18 14:38> (1) Sepsis Qualifiers: Sepsis type: sepsis due to unspecified organism Qualified Code(s): A41.9 - Sepsis, unspecified organism (2) Catheter-associated urinary tract infection Qualifiers: Indwelling urinary catheter type: indwelling urethral catheter Encounter type: initial encounter Qualified Code(s): T83.511A - Infection and inflammatory reaction due to indwelling urethral catheter, initial encounter; N39.0 - Urinary tract infection, site not specified (6) Chronic respiratory failure Qualifiers: Respiratory failure complication: unspecified whether with hypoxia or hypercapnia Qualified Code(s): J96.10 - Chronic respiratory failure, unspecified whether with hypoxia or hypercapnia (8) COPD (chronic obstructive pulmonary disease) Qualifiers: COPD type: unspecified COPD Qualified Code(s): J44.9 - Chronic obstructive pulmonary disease, unspecified (9) T2DM (type 2 diabetes mellitus) Qualifiers: 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 insulin use: with usp use Diabetes mellitus complication status: without complication Qualified Code(s): E11.9 - Type 2 diabetes mellitus without complications; 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 (12) Hypertension Qualifiers: Hypertension type: essential hypertension Qualified Code(s): I10 - Essential (primary) hypertension <Polo Ponce - Last Filed: 11/16/18 15:03> (1) COPD (chronic obstructive pulmonary disease) Qualifiers: COPD type: unspecified COPD Qualified Code(s): J44.9 - Chronic obstructive pulmonary disease, unspecified (6) Sepsis Qualifiers: Sepsis type: sepsis due to unspecified organism Qualified Code(s): A41.9 - Sepsis, unspecified organism (7) Hypertension Qualifiers: Hypertension type: essential hypertension Qualified Code(s): I10 - Essential (primary) hypertension (8) T2DM (type 2 diabetes mellitus) Qualifiers: Diabetes mellitus usp insulin use: with superintendent marine oil terminal use Diabetes mellitus complication status: without complication Qualified Code(s): E11.9 - Type 2 diabetes mellitus without complications; 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 (9) Catheter-associated urinary tract infection Qualifiers: Indwelling urinary catheter type: indwelling urethral catheter Encounter type: initial encounter Qualified Code(s): T83.511A - Infection and inflammatory reaction due to indwelling urethral catheter, initial encounter; N39.0 - Urinary tract infection, site not specified (13) Chronic respiratory failure Qualifiers: Respiratory failure complication: unspecified whether with hypoxia or hypercapnia Qualified Code(s): J96.10 - Chronic respiratory failure, unspecified whether with hypoxia or hypercapnia
[2018-11-16] MEDS ORDERED: VILANTER IH SCH (09:00)
[2018-11-16] MEDS ORDERED: Furosemide 20 MG/2 ML VIAL IVP SCH (09:00)
[2018-11-16] MEDS ORDERED: UMECLIDIN IH SCH (09:00)
[2018-11-16] MEDS ORDERED: FLUTICASONE IH SCH (09:00)
[2018-11-16] MEDS: Fluticasone Propionate Nasal 50 MCG/SPRAY BOTTLE NS SCH (12:35)
[2018-11-16] MEDS: Nystatin Cream 15 GM TUBE TP SCH ×2 (12:35→22:58)
[2018-11-16] MEDS ORDERED: Ipratropium/Albuterol Neb 3 ML IH PRN (13:09)
[2018-11-16] MEDS: traZODone 50 MG TABLET PO SCH (22:18)
[2018-11-16] MEDS: rOPINIRole 0.25 MG TABLET PO SCH (22:19)
[2018-11-17] MEDS: Piperacillin/Tazobactam 3.375 GM in 0.9 % Sodium Chloride Mini Bag 100 ML IVPB SCH ×2 (00:04→08:05)
[2018-11-17 05:57] LABS: Basophils # 0.1 K/mcL (0.0-0.2); Basophils % 0.6 %; Eosinophils # 0.2 K/mcL (0.0-0.6); Eosinophils % 2.7 %; Hematocrit 34.3 % (37.5-50.1); Hemoglobin 10.6 g/dL (12.9-16.9); Immature Granulocytes % 1.7 % (0-4); Lymphocytes # 1.9 K/mcL (0.6-4.6); Mean Corpuscular HGB Conc 30.9 g/dL (31.6-35.5); Mean Corpuscular Hemoglobin 25.7 pg (28.0-33.3); Mean Corpuscular Volume 83.3 fL (83.0-100.0); Mean Platelet Volume 10.3 fL (9.4-12.4); Monocytes # 0.7 K/mcL (0.0-1.3); Monocytes % 8.4 %; Neutrophils # 5.4 K/mcL (1.6-8.9); Platelet Count 199 K/mcL (140-400); Red Blood Count 4.12 M/mcL (4.19-5.50); Red Cell Distribution Width 16.8 % (11.5-14.5); Segmented Neutrophils % 63.6 %
[2018-11-17 06:44] LABS: BUN/Creatinine Ratio 22 (6-26); Blood Urea Nitrogen 28 mg/dL (8-23); Calcium 8.8 mg/dL (8.6-10.3); Carbon Dioxide 29 mEq/L (23-29); Chloride 97 mEq/L (98-107); Glucose 137 mg/dL (70-105); Osmolality,Calculated 286 (280-300); Potassium 3.6 mEq/L (3.5-5.1); Sodium 134 mEq/L (136-145); eGFR For Non-African Americans 56 (> 60)
[2018-11-17] MEDS: Gabapentin 300 MG CAPSULE PO SCH (08:06)
[2018-11-17] MEDS: Insulin LISPRO 300 UNITS/3 ML VIAL SQ SCH ×2 (08:06→12:24)
[2018-11-17] MEDS: Aspirin Enteric Coated 81 MG Tablet PO SCH (08:06)
[2018-11-17] MEDS: Nystatin Cream 15 GM TUBE TP SCH (08:07)
[2018-11-17] MEDS: Insulin NPH 100 UNIT/ML (x5UNIT) SQ SCH (08:09)
[2018-11-17] MEDS: Fluticasone Propionate Nasal 50 MCG/SPRAY BOTTLE NS SCH (08:09)
--- NOTE | 2018-11-17 08:22 | Discharge Summary ---
Orders not resulted at time of discharge: Pending orders 11/13/18 18:07 Culture,Blood [BC] Stat 11/15/18 07:43 Culture,Blood [BC] AM 0400 Date of Encounter: 11/17/18 Time of Encounter: 08:20 - Discharge Diagnosis (1) Catheter-associated urinary tract infection Priority: Primary Status: Acute Qualifiers: Indwelling urinary catheter type: indwelling urethral catheter Encounter type: initial encounter Qualified Code(s): T83.511A - Infection and inflammatory reaction due to indwelling urethral catheter, initial encounter; N39.0 - Urinary tract infection, site not specified (2) COPD (chronic obstructive pulmonary disease) Priority: Secondary Status: Chronic Qualifiers: COPD type: unspecified COPD Qualified Code(s): J44.9 - Chronic obstructive pulmonary disease, unspecified (3) Elevated troponin Priority: Secondary Status: Acute (4) Morbid obesity with BMI of 45.0-49.9, adult Priority: Secondary Status: Chronic (5) Combined systolic and diastolic heart failure, acute Priority: Secondary Status: Resolved (6) Sepsis Priority: Secondary Status: Acute Qualifiers: Sepsis type: sepsis due to unspecified organism Qualified Code(s): A41.9 - Sepsis, unspecified organism (7) Hypertension Priority: Secondary Status: Chronic Qualifiers: Hypertension type: essential hypertension Qualified Code(s): I10 - Essential (primary) hypertension (8) T2DM (type 2 diabetes mellitus) Priority: Secondary Status: Acute Qualifiers: 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: with mcc use Diabetes mellitus complication status: without complication Qualified Code(s): E11.9 - Type 2 diabetes mellitus without complications; Z79.4 - sketcher (current) use of insulin (9) Metabolic encephalopathy Priority: Secondary Status: Resolved (10) Tinea barbae Priority: Secondary Status: Acute (11) Bacteremia Priority: Secondary Status: Ruled-out (12) Chronic respiratory failure Priority: Secondary Status: Chronic Qualifiers: Respiratory failure complication: unspecified whether with hypoxia or hypercapnia Qualified Code(s): J96.10 - Chronic respiratory failure, unspecified whether with hypoxia or hypercapnia Hospital course: Mr. Wright is a 68 year old male with history of type 2 diabetes, COPD, chronic indwelling Ocasio catheter presented with altered mental status. At the half-way patient was found to be confused and with concerns for UTI as the patient has a chronic indwelling Ocasio catheter. He was seen by urology who recommended antibiotics and no Ocasio catheter changed this time. Patient continued to Zosyn until microbiologic results returned with urine culture positive for Escherichia coli and providencia species both sensitive to Bactrim which he was transitioned to. His acute encephalopathy resolved and patient returned to baseline. Patient will be discharged back to [facility] in stable condition. Discharge discussed with: patient - Time Spent with Patient Total time spent providing and/or coordinating discharge services: Time spent: Greater than 30 minutes (40 minutes) - Discharge Medications Prescriptions: New Sulfamethoxazole/Trimeth DS [Bactrim Ds] 1 each PO BID #8 tablet Continue Aspirin [Lo-Dose Aspirin EC] 81 mg PO DAILY Sertraline [Zoloft] 100 mg PO DAILY Lovastatin 10 mg PO HS traZODone [TraZODone] 100 mg PO HS Carvedilol 12.5 mg PO BID Acetaminophen [Tylenol] 650 mg PO Q4HR PRN PRN Reason: Pain Phenol [Chloraseptic] 1 spr MM Q2H PRN PRN Reason: Sore Throat Furosemide [Lasix] 40 mg PO DAILY Fluticasone Propionate Nasal [Flonase] 2 spr NS DAILY Potassium Chloride [K-Tab ER] 20 meq PO DAILY Albuterol Sulfate [Albuterol Inhaler] 2 puff IH [id number] PRN inhaler PRN Reason: Shortness Of Breath/Wheezing Tiotropium [Spiriva] 18 mcg IH DAILYR inh Lidocaine Patch [Lidoderm 5% patch] 1 each TP DAILY PRN #20 adh..patch PRN Reason: pain Gabapentin [Neurontin] 300 mg PO TID Guaifenesin [Diabetic Tussin Ex] 10 ml PO Q4H PRN PRN Reason: Cough rOPINIRole [Requip] 0.25 mg PO HS Insulin Regular, Human [Novolin R] 100 ml SQ ACHS Diclofenac Sodium [Diclozor] 1 each TP PRN PRN PRN Reason: Pain Ondansetron ODT [Zofran ODT] 4 mg SL Q6HR PRN PRN Reason: Nausea Ipratropium/Albuterol Sulfate [Iprat-Albut 0.5-3(2.5) mg/3 ml] 3 ml IH BID PRN PRN Reason: Shortness Of Breath Tamsulosin HCl [Flomax] 0.4 mg PO DAILY Glucagon, Human Recombinant [Glucagen] 1 mg IM ONCE PRN PRN Reason: fsbg <60 Edin/Poly/Chavez OINT [Triple Antibiotic Ointment] 1 appl TP PRN PRN PRN Reason: Cath Care Loperamide [Imodium] 2 mg PO Q4HR PRN MDD 8mg/24hr PRN Reason: Diarrhea Hyoscyamine SL [Levsin Sl] 0.125 mg SL Q2H PRN PRN Reason: Secretions Promethazine [Phenergan] 25 mg RC Q12H PRN PRN Reason: Nausea/Vomiting Saline Nasal Carmi [[place] Nasal Carmi] 1 spray NS DAILY PRN PRN Reason: nasal dryness Menthol [Biofreeze] 1 appl TP BID Fluticasone/Umeclidin/Vilanter [Trelegy Ellipta 100-62.5-25] 1 each IH DAILY Bisacodyl [Gentle Laxative] 10 mg RC DAILY PRN PRN Reason: Constipation Insulin NPH Human Isophane [Novolin N] 30 unit SQ HS Insulin NPH Human Isophane [Novolin N] 50 unit SQ QAM Acetaminophen [Tylenol 650mg SUPP] 650 mg RC Q4H PRN PRN Reason: Fever Morphine Oral CONC [Roxanol] 0.25 ml PO Q4H PRN 5 Days #50 mls PRN Reason: pain/dyspnea Tramadol HCl [Ultram] 50 mg PO Q4H PRN 4 Days #15 tablet PRN Reason: Pain Home Medications: Aspirin [Lo-Dose Aspirin EC] 81 mg PO DAILY 12/10/16 [History] Sertraline [Zoloft] 100 mg PO DAILY 12/10/16 [History] Lovastatin 10 mg PO HS 04/07/17 [History] traZODone [TraZODone] 100 mg PO HS 08/09/17 [History] Acetaminophen [Tylenol] 650 mg PO Q4HR PRN 10/04/17 [History] Carvedilol 12.5 mg PO BID 10/04/17 [History] Phenol [Chloraseptic] 1 spr MM Q2H PRN 10/04/17 [History] Fluticasone Propionate Nasal [Flonase] 2 spr NS DAILY 12/12/17 [History] Furosemide [Lasix] 40 mg PO DAILY 12/12/17 [History] Potassium Chloride [K-Tab ER] 20 meq PO DAILY 01/11/18 [History] Albuterol Sulfate [Albuterol Inhaler] 2 puff IH [id number] PRN inhaler 01/17/18 [Rx] Tiotropium [Spiriva] 18 mcg IH DAILYR inh 01/17/18 [Rx] Lidocaine Patch [Lidoderm 5% patch] 1 each TP DAILY PRN #20 adh..patch 10/31/18 [Rx] Bisacodyl [Gentle Laxative] 10 mg RC DAILY PRN 11/13/18 [History] Diclofenac Sodium [Diclozor] 1 each TP PRN PRN 11/13/18 [History] Fluticasone/Umeclidin/Vilanter [Trelegy Ellipta 100-62.5-25] 1 each IH DAILY 0 11/13/18 [History] Gabapentin [Neurontin] 300 mg PO TID 11/13/18 [History] Glucagon, Human Recombinant [Glucagen] 1 mg IM ONCE PRN 11/13/18 [History] Guaifenesin [Diabetic Tussin Ex] 10 ml PO Q4H PRN 11/13/18 [History] Hyoscyamine SL [Levsin Sl] 0.125 mg SL Q2H PRN 11/13/18 [History] Insulin Regular, Human [Novolin R] 100 ml SQ ACHS 11/13/18 [History] Ipratropium/Albuterol Sulfate [Iprat-Albut 0.5-3(2.5) mg/3 ml] 3 ml IH BID PRN 11/13/18 [History] Loperamide [Imodium] 2 mg PO Q4HR PRN MDD 8mg/24hr 11/13/18 [History] Menthol [Biofreeze] 1 appl TP BID 11/13/18 [History] Edin/Poly/Chavez OINT [Triple Antibiotic Ointment] 1 appl TP PRN PRN 11/13/18 [History] Ondansetron ODT [Zofran ODT] 4 mg SL Q6HR PRN 11/13/18 [History] Promethazine [Phenergan] 25 mg RC Q12H PRN 11/13/18 [History] Saline Nasal Carmi [[place] Nasal Carmi] 1 spray NS DAILY PRN 11/13/18 [History] Tamsulosin HCl [Flomax] 0.4 mg PO DAILY 11/13/18 [History] rOPINIRole [Requip] 0.25 mg PO HS 11/13/18 [History] Acetaminophen [Tylenol 650mg SUPP] 650 mg RC Q4H PRN 11/14/18 [History] Insulin NPH Human Isophane [Novolin N] 30 unit SQ HS 11/14/18 [History] Insulin NPH Human Isophane [Novolin N] 50 unit SQ QAM 11/14/18 [History] Morphine Oral CONC [Roxanol] 0.25 ml PO Q4H PRN 5 Days #50 mls 11/17/18 [Rx] Sulfamethoxazole/Trimeth DS [Bactrim Ds] 1 each PO BID #8 tablet 11/17/18 [Rx] Tramadol HCl [Ultram] 50 mg PO Q4H PRN 4 Days #15 tablet 11/17/18 [Rx] Allergies/Adverse Reactions: Allergy/AdvReac Type Severity Reaction Status Date / Time No Known Drug Allergies Allergy See Verified 08/20/17 15:01 Comments Date of admission: 11/14/18 03:23 Primary care physician: Ander Blankenship MD Consults: 11/14/18 02:34 Consult to Urology [CONS] Routine Consulting Provider: [facility] [place] Reason for Consult: hematurea, chronic ocasio Call Completed: Yes Discharging clinician: Polo Ponce Anticipated date of discharge: 11/17/18 - Constitutional Vitals: Temp Pulse Resp BP Pulse Ox 97.3 F L 66 15 140/72 92 11/17/18 07:46 11/17/18 07:46 11/17/18 07:46 11/17/18 07:46 11/17/18 07:46 General appearance: Present: A&O X 3, pleasant, no acute distress Exam: . - Respiratory Respiratory exam: Present: CTAB. Absent: rales, rhonchi, wheezes - GI/Abdominal GI/Abdominal exam: Present: soft. Absent: distended, tenderness - Patient Status Disposition: Transfer SNF Condition: Fair Functional capacity at discharge: uses cane/walker Overall status at discharge: patient is progressing back to baseline - Discharge Instructions Follow Up With: Ander Blankenship MD [Primary Care Provider] - (1 week) Additional Instructions: Please resume your home medications. Please take your antibiotics as directed. Please have your catheter changed as directed. Please return for any new or worsening symptoms. - Diet and Activity Activity: increase activity as tolerated Diet: diabetic diet, low salt diet
--- NOTE | 2018-11-17 08:34 | Physician Discharge Referral ---
[facility] Referral Info Provider in Charge after Transfer: PCP Institutional Level of Care: Skilled - Diagnosis (1) Catheter-associated urinary tract infection Priority: Primary Status: Acute (2) COPD (chronic obstructive pulmonary disease) Priority: Secondary Status: Chronic (3) Elevated troponin Priority: Secondary Status: Acute (4) Morbid obesity with BMI of 45.0-49.9, adult Priority: Secondary Status: Chronic (5) Combined systolic and diastolic heart failure, acute Priority: Secondary Status: Resolved (6) Sepsis Priority: Secondary Status: Acute (7) Hypertension Priority: Secondary Status: Chronic (8) T2DM (type 2 diabetes mellitus) Priority: Secondary Status: Acute (9) Metabolic encephalopathy Priority: Secondary Status: Resolved (10) Tinea barbae Priority: Secondary Status: Acute (11) Bacteremia Priority: Secondary Status: Ruled-out (12) Chronic respiratory failure Priority: Secondary Status: Chronic Prognosis: Fair Aware of Diagnosis: Patient Aware of Prognosis: Patient - Transfer Medications Prescriptions: Morphine Oral CONC [Roxanol] 0.25 ml PO Q4H PRN 5 Days #50 mls PRN Reason: pain/dyspnea Sulfamethoxazole/Trimeth DS [Bactrim Ds] 1 each PO BID #8 tablet Tramadol HCl [Ultram] 50 mg PO Q4H PRN 4 Days #15 tablet PRN Reason: Pain Home Medications: Aspirin [Lo-Dose Aspirin EC] 81 mg PO DAILY 12/10/16 [History] Sertraline [Zoloft] 100 mg PO DAILY 12/10/16 [History] Lovastatin 10 mg PO HS 04/07/17 [History] traZODone [TraZODone] 100 mg PO HS 08/09/17 [History] Acetaminophen [Tylenol] 650 mg PO Q4HR PRN 10/04/17 [History] Carvedilol 12.5 mg PO BID 10/04/17 [History] Phenol [Chloraseptic] 1 spr MM Q2H PRN 10/04/17 [History] Fluticasone Propionate Nasal [Flonase] 2 spr NS DAILY 12/12/17 [History] Furosemide [Lasix] 40 mg PO DAILY 12/12/17 [History] Potassium Chloride [K-Tab ER] 20 meq PO DAILY 01/11/18 [History] Albuterol Sulfate [Albuterol Inhaler] 2 puff IH [id number] PRN inhaler 01/17/18 [Rx] Tiotropium [Spiriva] 18 mcg IH DAILYR inh 01/17/18 [Rx] Lidocaine Patch [Lidoderm 5% patch] 1 each TP DAILY PRN #20 adh..patch 10/31/18 [Rx] Bisacodyl [Gentle Laxative] 10 mg RC DAILY PRN 11/13/18 [History] Diclofenac Sodium [Diclozor] 1 each TP PRN PRN 11/13/18 [History] Fluticasone/Umeclidin/Vilanter [Trelegy Ellipta 100-62.5-25] 1 each IH DAILY 11/13/18 [History] Gabapentin [Neurontin] 300 mg PO TID 11/13/18 [History] Glucagon, Human Recombinant [Glucagen] 1 mg IM ONCE PRN 11/13/18 [History] Guaifenesin [Diabetic Tussin Ex] 10 ml PO Q4H PRN 11/13/18 [History] Hyoscyamine SL [Levsin Sl] 0.125 mg SL Q2H PRN 11/13/18 [History] Insulin Regular, Human [Novolin R] 100 ml SQ ACHS 11/13/18 [History] Ipratropium/Albuterol Sulfate [Iprat-Albut 0.5-3(2.5) mg/3 ml] 3 ml IH BID PRN 11/13/18 [History] Loperamide [Imodium] 2 mg PO Q4HR PRN MDD 8mg/24hr 11/13/18 [History] Menthol [Biofreeze] 1 appl TP BID 11/13/18 [History] Edin/Poly/Chavez OINT [Triple Antibiotic Ointment] 1 appl TP PRN PRN 11/13/18 [History] Ondansetron ODT [Zofran ODT] 4 mg SL Q6HR PRN 11/13/18 [History] Promethazine [Phenergan] 25 mg RC Q12H PRN 11/13/18 [History] Saline Nasal [place] [[place] Nasal [place]] 1 spray NS DAILY PRN 11/13/18 [History] Tamsulosin HCl [Flomax] 0.4 mg PO DAILY 11/13/18 [History] rOPINIRole [Requip] 0.25 mg PO HS 11/13/18 [History] Acetaminophen [Tylenol 650mg SUPP] 650 mg RC Q4H PRN 11/14/18 [History] Insulin NPH Human Isophane [Novolin N] 30 unit SQ HS 11/14/18 [History] Insulin NPH Human Isophane [Novolin N] 50 unit SQ QAM 11/14/18 [History] Morphine Oral CONC [Roxanol] 0.25 ml PO Q4H PRN 5 Days #50 mls 11/17/18 [Rx] Sulfamethoxazole/Trimeth DS [Bactrim Ds] 1 each PO BID #8 tablet 11/17/18 [Rx] Tramadol HCl [Ultram] 50 mg PO Q4H PRN 4 Days #15 tablet 11/17/18 [Rx] Allergies/Adverse Reactions: Allergy/AdvReac Type Severity Reaction Status Date / Time No Known Drug Allergies Allergy See Verified 08/20/17 15:01 Comments - Respiratory Orders Oxygen / L per min (3) Smoking Cessation: Smoking cessation has been advised. For more information, call the [employer] Quit Line at 5-000-FIQW-NOW. - Advance Directives Code Status: Full Code - Mobility Orders Ambulate (per PT) - Rehabiliation Orders Rehab Potential: Fair Rehab Orders: ROM Exercises, Evaluation for Physical Therapy, Evaluation for Occupational Therapy - Treatments List/Other: Harper catheter exchange per protocol - Diet Orders No Added Salt ([id number]), No Concentrated Sweets, Cardiac CERTIFICATION: I certify that the transfer of the above named patient to an Extended Care Facility is necessary for the continuing treatment of the diagnosis listed. The above information is true and accurate reflection of patient's current condition. Confidential - Redisclosure prohibited without a patient's written consent.
[2018-11-17] MEDS ORDERED: Furosemide 40 MG TABLET PO SCH (09:00)
[2018-11-17] MEDS ORDERED: Sulfamethoxazole/Trimeth DS 1 EACH TABLET PO SCH (09:00)
[2018-11-17 10:31] VITALS: BP 157/87
== END 2018-11-17 14:08 | DRG 698 ==
LOC: EMEROOARM 17:21 → 2NNU 17:21 → SUATTDRO 11-14 03:23 → 2SOUTHHOLD 11-15 09:57 → 3ANU 11-15 17:46
PROVIDERS: ADMIT Pediatrics; ATTEND Internal Medicine

== ENCOUNTER 2018-11-27 15:19 | Inpatient (IN) ==
[2018-11-27] MEDS ORDERED: 0.9 % Sodium Chloride 1,000 ML ONE ×2 (15:36→20:32)
--- NOTE | 2018-11-27 15:44 | Emergency Department Note ---
Disposition Clinical Impression: Hyperkalemia, Hyperphosphatemia, Hypocalcemia, JENN (acute kidney injury) Respiratory failure Qualifiers: Chronicity: acute Respiratory failure complication: unspecified whether with hypoxia or hypercapnia Qualified Code(s): J96.00 - Acute respiratory failure, unspecified whether with hypoxia or hypercapnia Disposition: Admitted As Inpatient Condition: Critical Referrals: Ander Blankenship MD [Primary Care Provider] - Forms: ED Satisfaction Letter Time of Disposition: 19:33 Altered Mental Status HPI - General Chief Complaint: ED Altered Mental Status Stated Complaint: SUZAN Time Seen by Provider: 11/27/18 15:40 Source: EMS Mode of arrival: EMS Limitations: altered mental status, physical limitation Nursing Notes Reviewed: Yes Vital Signs Reviewed: Yes - History of Present Illness HPI Narrative: Patient presents in respiratory failure from alf facility via EMS. EMS reports that he was saturating in the low 80s when they arrived and while they tried to place him on supplemental oxygen his saturations did not greatly improve so they began using a bag valve mask to provide passive respirations to him. Patient initially had a heart rate in the 40s when he first arrived however after they had been ventilating him his heart rate improved into the 80s. Patient never regained consciousness during transport. When patient presented to us he was not awake or alert. Patient was moved onto the [facility] and initially had a pulse and a detectable rhythm. However shortly after he arrived he had a disorganized rhythm on the monitor and no palpable pulses. CPR was initiated, please see nursing notes for detailed timeline during CPR. No cardioversion was performed. One dose of epinephrine was given, pulse was detected and verified by ultrasound, an EKG was taken immediately after return of spontaneous circulation. Initial postarrest EKG had concerns for inferior ischemia, however, consultation with electro-school principal, Dr. Judie Olsen, revealed that initial rhythm on presenting EKG may have been accelerated idioventricular, and that subsequent EKGs may have been a reflection of recent CPR. STEMI alert was not called, and electro-school principal declined to take the patient to the [facility]. Dr. Olsen recommended admission to the hospitalist after workup and that they be consulted. - Related Data Home Medications Medication Instructions Recorded Confirmed Aspirin [Lo-Dose Aspirin EC] 81 mg PO DAILY 12/10/16 11/14/18 Sertraline [Zoloft] 100 mg PO DAILY 12/10/16 11/14/18 Lovastatin 10 mg PO HS 04/07/17 11/14/18 traZODone [TraZODone] 100 mg PO HS 08/09/17 11/14/18 Acetaminophen [Tylenol] 650 mg PO Q4HR PRN 10/04/17 11/14/18 Carvedilol 12.5 mg PO BID 10/04/17 11/14/18 Phenol [Chloraseptic] 1 spr MM Q2H PRN 10/04/17 11/14/18 Fluticasone Propionate Nasal 2 spr NS DAILY 12/12/17 11/14/18 [Flonase] Furosemide [Lasix] 40 mg PO DAILY 12/12/17 11/14/18 Potassium Chloride [K-Tab ER] 20 meq PO DAILY 01/11/18 11/14/18 Bisacodyl [Gentle Laxative] 10 mg RC DAILY PRN 11/13/18 11/14/18 Diclofenac Sodium [Diclozor] 1 each TP PRN PRN 11/13/18 11/14/18 Fluticasone/Umeclidin/Vilanter 1 each IH DAILY 11/13/18 11/14/18 [Trelegy Ellipta 100-62.5-25] Gabapentin [Neurontin] 300 mg PO TID 11/13/18 11/14/18 Glucagon, Human Recombinant 1 mg IM ONCE PRN 11/13/18 11/14/18 [Glucagen] Guaifenesin [Diabetic Tussin Ex] 10 ml PO Q4H PRN 11/13/18 11/14/18 Hyoscyamine SL [Levsin Sl] 0.125 mg SL Q2H PRN 11/13/18 11/14/18 Insulin Regular, Human [Novolin R] 100 ml SQ ACHS 11/13/18 11/14/18 Ipratropium/Albuterol Sulfate 3 ml IH BID PRN 11/13/18 11/14/18 [Iprat-Albut 0.5-3(2.5) mg/3 ml] Loperamide [Imodium] 2 mg PO Q4HR PRN MDD 8mg/24hr 11/13/18 11/14/18 Menthol [Biofreeze] 1 appl TP BID 11/13/18 11/14/18 Edin/Poly/Chavez OINT [Triple 1 appl TP PRN PRN 11/13/18 11/14/18 Antibiotic Ointment] Ondansetron ODT [Zofran ODT] 4 mg SL Q6HR PRN 11/13/18 11/14/18 Promethazine [Phenergan] 25 mg RC Q12H PRN 11/13/18 11/14/18 Saline Nasal Caputa [Dickens Nasal 1 spray NS DAILY PRN 11/13/18 11/14/18 Caputa] Tamsulosin HCl [Flomax] 0.4 mg PO DAILY 11/13/18 11/14/18 rOPINIRole [Requip] 0.25 mg PO HS 11/13/18 11/14/18 Acetaminophen [Tylenol 650mg SUPP] 650 mg RC Q4H PRN 11/14/18 11/14/18 Insulin NPH Human Isophane 30 unit SQ HS 11/14/18 11/14/18 [Novolin N] Insulin NPH Human Isophane 50 unit SQ QAM 11/14/18 11/14/18 [Novolin N] Previous Rx's Medication Instructions Recorded Albuterol Sulfate [Albuterol 2 puff IH [id number] PRN inhaler 01/17/18 Inhaler] Tiotropium [Spiriva] 18 mcg IH DAILYR inh 01/17/18 Lidocaine Patch [Lidoderm 5% patch] 1 each TP DAILY PRN #20 adh..patch 10/31/18 Sulfamethoxazole/Trimeth DS 1 each PO BID #8 tablet 11/17/18 [Bactrim Ds] Allergies Allergy/AdvReac Type Severity Reaction Status Date / Time No Known Drug Allergies Allergy See Verified 08/20/17 15:01 Comments Limitations: ROS unobtainable due to patients medical condition Past Medical History - Past Medical History Medical history: Reports: CHF, COPD, diabetes, hyperlipidemia, hypertension Surgical history: Reports: pacemaker/AICD, other Psychiatric history: Reports: depression - Social History Smoking Status: Former smoker Smokeless Tobacco Status: No Alcohol use: Reports: none Drug use: Reports: none Physical Exam - General Limitations: altered mental status, physical limitation General appearance: in distress - Head Head exam: atraumatic, normocephalic - Eye Eye exam: Present: normal appearance, PERRL. Absent: scleral icterus, conjunc tival injection - ENT ENT exam: other (pt intubated) - Chest Chest inspection: Present: normal inspection, symmetric chest wall rise - Respiratory Respiratory exam: Present: wheezes, other (pt intubated) - Cardiovascular Cardiovascular exam: Present: regular rate, normal rhythm - Abdominal Exam Abdominal exam: Present: soft, distention. Absent: rigidity - Male exam: Present: other (purulent drainage coming from penis, ocasio present) - Extremities Exam Extremities exam: Present: pedal edema - Skin Skin exam: Present: cyanosis, pallor Course Course Narrative: Ddx includes but is not limited to: sepsis, pulmonary edema, ACS Workup to include CBC, BMP, LFTS, blood cultures, Lactic acid, ABG, Mg, Phos, EKG, CXR, NG placement, Intubation, post-intubation sedation meds - Consultations Consultation #1: Spoke with Dr. Diana, refractory furnace designer and related electrolyte abnormalities to her. She states that there should be a third potassium level drawn after the interventions that were performed and that once the pt was in the ICU, she would be able to evaluate the need for emergent dialysis. Consult order was placed, repeat potassium ordered. Time: 16:30 Vital Signs Temperature 0 F L 11/27/18 15:20 Pulse Rate 0 11/27/18 15:20 Respiratory Rate 0 11/27/18 15:20 Blood Pressure 221/143 11/27/18 15:20 O2 Sat by Pulse Oximetry 100 11/27/18 15:20 Temperature 97.4 F L 11/27/18 19:06 Pulse Rate 63 11/27/18 19:24 Respiratory Rate 14 11/27/18 19:24 Blood Pressure 129/69 11/27/18 19:24 O2 Sat by Pulse Oximetry 100 11/27/18 19:24 Oxygen Delivery Oxygen Delivery Ventilator Altered Mental Status - MDM Narrative Medical decision making narrative: Pts potassium was significantly elevated at 7, with a repeat value of 7.2. Pat ient was given 1 g of calcium gluconate, 10 units of insulin, 1 amp of D50, and Kayexalate through his NG tube. Repeat potassium after interventions was 6.9. Nephrology was consulted, see course details below. Chest x-ray revealed left- sided lung findings consistent with either pulmonary edema or pneumonia. Urine findings were concerning for infection, especially given the physical exam finding of purulent drainage from penis. Patient was given 1 mg of Bumex, in the event that his lung findings were due to pulmonary edema. Patient was also covered with Rocephin, vancomycin, Zosyn, in the event that his findings were caused by sepsis. Electrophysiology school principal, Dr. Judie Olsen, was consulted, she read the EKGs and did not think the patient needed to be taken emergently to the [facility] at this time. Patient was sedated on a combination of fentanyl and Versed. Family was updated in the family room as to the condition of the patient, next steps, and that the next 24 hours were very important for ultimate prognosis. Patient will be admitted to crime scene examiner. At no time did patient regain consciousness, however patient was carefully monitored during his time in the emergency department, and was hemodynamically stable at the time of signout. Pt was admitted to hospitalist/intensivisit Dr. Gibbs, who agreed to accept the patient to his service. - Medical Records Medical records reviewed: Yes I reviewed the patient's medical records. - Lab Data Lab results reviewed: Yes I reviewed the patient's lab results. Result diagrams: 11/27/18 15:25 11/27/18 17:39 Lab Results 11/27/18 11/27/18 11/27/18 Range/Units 15:25 15:25 15:25 WBC 8.4 (4.3-11.1) K/mcL RBC 3.71 L (4.19-5.50) M/mcL Hgb 9.5 L (12.9-16.9) g/dL Hct 31.3 L (37.5-50.1) % MCV 84.4 (83.0-100.0) fL MCH 25.6 L (28.0-33.3) pg MCHC 30.4 L (31.6-35.5) g/dL RDW 16.5 H (11.5-14.5) % Plt Count 264 (140-400) K/mcL MPV 10.1 (9.4-12.4) fL Immature Gran % 1.2 (0-4) % Seg Neutrophils % 73.3 % Lymphocytes % 17.2 % Monocytes % 7.2 % Eosinophils % 0.7 % Basophils % 0.4 % Neutrophils # 6.1 (1.6-8.9) K/mcL Lymphocytes # 1.4 (0.6-4.6) K/mcL Monocytes # 0.6 (0.0-1.3) K/mcL Eosinophils # 0.1 (0.0-0.6) K/mcL Basophils # 0.0 (0.0-0.2) K/mcL PT 13.2 H (9.4-12.1) Seconds INR 1.2 APTT 34.5 (26.0-36.0) Seconds ABG pH (7.32-7.45) pH Units ABG pCO2 (35-45) mmHg ABG pO2 (85-104) mmHg ABG HCO3 (21-27) mEq/L ABG Total CO2 (20-26) mEq/L ABG O2 Saturation (95-98) % ABG Base Excess (-2 to 3) mEq/L Respiration Rate O2 Delivery Device Blood Gas Modality Inspired O2 (1-15=lpm [id number]=%) Tidal Volume cc PEEP cm H2O Sodium 128 L (136-145) mEq/L Potassium 7.0 H* (3.5-5.1) mEq/L Chloride 97 L (98-107) mEq/L Carbon Dioxide 20 L (23-29) mEq/L BUN 51 H (8-23) mg/dL Creatinine 2.25 H (0.70-1.30) mg/dL Est GFR ( Amer) 36 L (> 60) Est GFR (Non-Af Amer) 29 L (> 60) BUN/Creatinine Ratio 23 (6-26) Glucose 144 H (70-105) mg/dL Calculated Osmolality 282 (280-300) Lactic Acid (0.5-2.2) mmol/L Calcium 7.7 L (8.6-10.3) mg/dL Phosphorus 6.4 H (2.7-4.5) mg/dL Magnesium 2.6 (1.6-2.6) mg/dL Total Bilirubin 0.4 (0.3-1.0) mg/dL Direct Bilirubin 0.1 (0.0-0.2) mg/dL Indirect Bilirubin 0.3 (0.0-1.2) mg/dL AST 15 (13-39) Units/L ALT 11 (7-52) Units/L Alkaline Phosphatase 71 (34-104) Units/L Troponin I < 0.03 (< 0.04) ng/mL Serum Total Protein 7.4 (6.4-8.9) g/dL Albumin 2.9 L (3.5-5.7) g/dL Globulin 4.5 H (2.4-3.5) g/dL Albumin/Globulin Ratio 0.6 L (1.1-2.2) Urine Color (Yellow) Urine Clarity (Clear) Urine pH (5.0-8.0) pH Units Ur Specific [place] (1.010-1.025) Urine Protein (Neg-Trace) mg/dL Urine Glucose (UA) (Normal) mg/dL Urine Ketones (Negative) mg/dL Urine Blood (Negative) Urine Nitrite (Negative) Urine Bilirubin (Negative) Urine Urobilinogen (Normal) mg/dL Ur Leukocyte Esterase (Negative) Urine Microscopic RBC (0-3) per hpf Urine Microscopic WBC (0-3) per hpf Ur Squamous Epith Cells (None-Few) per lpf Amorphous Sediment (Few) Urine Bacteria (None-Few) per hpf Hyaline Casts (None-Few) per lpf Urine Yeast (None Seen) per hpf Ur Culture Indicated? (NO) 11/27/18 11/27/18 11/27/18 Range/Units 15:25 16:06 16:36 WBC (4.3-11.1) K/mcL RBC (4.19-5.50) M/mcL Hgb (12.9-16.9) g/dL Hct (37.5-50.1) % MCV (83.0-100.0) fL MCH (28.0-33.3) pg MCHC (31.6-35.5) g/dL RDW (11.5-14.5) % Plt Count (140-400) K/mcL MPV (9.4-12.4) fL Immature Gran % (0-4) % Seg Neutrophils % % Lymphocytes % % Monocytes % % Eosinophils % % Basophils % % Neutrophils # (1.6-8.9) K/mcL Lymphocytes # (0.6-4.6) K/mcL Monocytes # (0.0-1.3) K/mcL Eosinophils # (0.0-0.6) K/mcL Basophils # (0.0-0.2) K/mcL PT (9.4-12.1) Seconds INR APTT (26.0-36.0) Seconds ABG pH 7.27 L (7.32-7.45) pH Units ABG pCO2 46 H (35-45) mmHg ABG pO2 112 H (85-104) mmHg ABG HCO3 21 (21-27) mEq/L ABG Total CO2 22 (20-26) mEq/L ABG O2 Saturation 98 (95-98) % ABG Base Excess -6 L (-2 to 3) mEq/L Respiration Rate 12 O2 Delivery Device Adult Vent Blood Gas Modality ASSIST CONTROL Inspired O2 100.0 (1-15=lpm [id number]=%) Tidal Volume 550 cc PEEP 5 cm H2O Sodium (136-145) mEq/L Potassium 7.2 H* (3.5-5.1) mEq/L Chloride (98-107) mEq/L Carbon Dioxide (23-29) mEq/L BUN (8-23) mg/dL Creatinine (0.70-1.30) mg/dL Est GFR ( Amer) (> 60) Est GFR (Non-Af Amer) (> 60) BUN/Creatinine Ratio (6-26) Glucose (70-105) mg/dL Calculated Osmolality (280-300) Lactic Acid 1.5 (0.5-2.2) mmol/L Calcium (8.6-10.3) mg/dL Phosphorus (2.7-4.5) mg/dL Magnesium (1.6-2.6) mg/dL Total Bilirubin (0.3-1.0) mg/dL Direct Bilirubin (0.0-0.2) mg/dL Indirect Bilirubin (0.0-1.2) mg/dL AST (13-39) Units/L ALT (7-52) Units/L Alkaline Phosphatase (34-104) Units/L Troponin I (< 0.04) ng/mL Serum Total Protein (6.4-8.9) g/dL Albumin (3.5-5.7) g/dL Globulin (2.4-3.5) g/dL Albumin/Globulin Ratio (1.1-2.2) Urine Color (Yellow) Urine Clarity (Clear) Urine pH (5.0-8.0) pH Units Ur Specific [place] (1.010-1.025) Urine Protein (Neg-Trace) mg/dL Urine Glucose (UA) (Normal) mg/dL Urine Ketones (Negative) mg/dL Urine Blood (Negative) Urine Nitrite (Negative) Urine Bilirubin (Negative) Urine Urobilinogen (Normal) mg/dL Ur Leukocyte Esterase (Negative) Urine Microscopic RBC (0-3) per hpf Urine Microscopic WBC (0-3) per hpf Ur Squamous Epith Cells (None-Few) per lpf Amorphous Sediment (Few) Urine Bacteria (None-Few) per hpf Hyaline Casts (None-Few) per lpf Urine Yeast (None Seen) per hpf Ur Culture Indicated? (NO) 11/27/18 11/27/18 Range/Units 17:39 18:24 WBC (4.3-11.1) K/mcL RBC (4.19-5.50) M/mcL Hgb (12.9-16.9) g/dL Hct (37.5-50.1) % MCV (83.0-100.0) fL MCH (28.0-33.3) pg MCHC (31.6-35.5) g/dL RDW (11.5-14.5) % Plt Count (140-400) K/mcL MPV (9.4-12.4) fL Immature Gran % (0-4) % Seg Neutrophils % % Lymphocytes % % Monocytes % % Eosinophils % % Basophils % % Neutrophils # (1.6-8.9) K/mcL Lymphocytes # (0.6-4.6) K/mcL Monocytes # (0.0-1.3) K/mcL Eosinophils # (0.0-0.6) K/mcL Basophils # (0.0-0.2) K/mcL PT (9.4-12.1) Seconds INR APTT (26.0-36.0) Seconds ABG pH (7.32-7.45) pH Units ABG pCO2 (35-45) mmHg ABG pO2 (85-104) mmHg ABG HCO3 (21-27) mEq/L ABG Total CO2 (20-26) mEq/L ABG O2 Saturation (95-98) % ABG Base Excess (-2 to 3) mEq/L Respiration Rate O2 Delivery Device Blood Gas Modality Inspired O2 (1-15=lpm [id number]=%) Tidal Volume cc PEEP cm H2O Sodium (136-145) mEq/L Potassium 6.9 H* (3.5-5.1) mEq/L Chloride (98-107) mEq/L Carbon Dioxide (23-29) mEq/L BUN (8-23) mg/dL Creatinine (0.70-1.30) mg/dL Est GFR ( Amer) (> 60) Est GFR (Non-Af Amer) (> 60) BUN/Creatinine Ratio (6-26) Glucose (70-105) mg/dL Calculated Osmolality (280-300) Lactic Acid (0.5-2.2) mmol/L Calcium (8.6-10.3) mg/dL Phosphorus (2.7-4.5) mg/dL Magnesium (1.6-2.6) mg/dL Total Bilirubin (0.3-1.0) mg/dL Direct Bilirubin (0.0-0.2) mg/dL Indirect Bilirubin (0.0-1.2) mg/dL AST (13-39) Units/L ALT (7-52) Units/L Alkaline Phosphatase (34-104) Units/L Troponin I (< 0.04) ng/mL Serum Total Protein (6.4-8.9) g/dL Albumin (3.5-5.7) g/dL Globulin (2.4-3.5) g/dL Albumin/Globulin Ratio (1.1-2.2) Urine Color Dark Yellow (Yellow) Urine Clarity Turbid A (Clear) Urine pH 5.0 (5.0-8.0) pH Units Ur Specific [place] 1.026 H (1.010-1.025) Urine Protein >=300 H (Neg-Trace) mg/dL Urine Glucose (UA) 100 H (Normal) mg/dL Urine Ketones Negative (Negative) mg/dL Urine Blood Large H (Negative) Urine Nitrite Negative (Negative) Urine Bilirubin Small H (Negative) Urine Urobilinogen Normal (Normal) mg/dL Ur Leukocyte Esterase Large H (Negative) Urine Microscopic RBC TNTC H (0-3) per hpf Urine Microscopic WBC TNTC H (0-3) per hpf Ur Squamous Epith Cells Many H (None-Few) per lpf Amorphous Sediment Few (Few) Urine Bacteria Few (None-Few) per hpf Hyaline Casts Few (None-Few) per lpf Urine Yeast Few H (None Seen) per hpf Ur Culture Indicated? YES A (NO) - Radiology Data Radiology results reviewed: Yes I reviewed the patient's radiology results. KUB X-Ray 11/27/18 00:00 IMPRESSION: Enteric tube with tip in the gastric body and proximal side-port in the proximal gastric fundus. D/ : / 11/27/2018 16:39:16 Diego Harper MD / faraz Interpreting Provider: Diego Harper MD Chest X-Ray 11/27/18 16:28 IMPRESSION: 1. NG tube extends below the left hemidiaphragm, out of the field of view. Endotracheal tube tip projects over the trachea, tip at the level of the aortic knob, 5.7 cm superior to the abran. 2. Unchanged diffuse opacities lower 2/3 left hemithorax compatible with consolidation and pleural effusion. 3. Diffuse findings most typical of congestive heart failure bilateral lungs, though ARDS or diffuse infection are considerations as well. 4. Marked cardiac silhouette enlargement versus pericardial effusion. D/ / Eliseo Valdivia / Eliseo Valdivia Interpreting Provider: Eliseo Valdivia X-Ray 11/27/18 00:00 IMPRESSION: Enteric tube with tip in the gastric body and proximal side-port in the proximal gastric fundus. D/ : / 11/27/2018 16:39:16 Diego Harper MD / faraz Interpreting Provider: Diego Harper MD Head CT 11/27/18 16:18 IMPRESSION: No acute intracranial abnormality. D/ / Jacinto George MD / Jacinto George MD Interpreting Provider: Jacinto George MD Chest X-Ray 11/27/18 16:28 IMPRESSION: 1. NG tube extends below the left hemidiaphragm, out of the field of view. Endotracheal tube tip projects over the trachea, tip at the level of the aortic knob, 5.7 cm superior to the abran. 2. Unchanged diffuse opacities lower 2/3 left hemithorax compatible with consolidation and pleural effusion. 3. Diffuse findings most typical of congestive heart failure bilateral lungs, though ARDS or diffuse infection are considerations as well. 4. Marked cardiac silhouette enlargement versus pericardial effusion. D/ / Eliseo Valdivia / Eliseo Valdivia Interpreting Provider: Eliseo Valdivia - EKG Data EKG attestation: Yes I reviewed and interpreted this EKG. EKG results narrative: 1524: HR 114, rhythm sinus tachycardia, axis left at -83. Significant elevations in II, III, aVF, V4, V5. Spoke with electrocardiologist who reports this is likely accelerated idioventricular rhythm and not acute ischemia. 1532: HR 92, rhythm sinus, axis left at -68. Elevations from previous EKG are less pronounced. This EKG was also shared with Dr. Judie Olsen. 1539: HR 80, rhythm sinus, axis left at -74. CA 253 and prolonged, QRS 109, QTc 460. No significant ST elevation or depression noted, baseline wander complicates interpretation. TPA Checklist - LKW: 3-4.5 hrs Add. Warnings/Precautions Patient/family understanding: The patient/family members have been counseled and understood the risk, benefit, and alternatives of treatment. Critical Care Time Critical Care Time: Yes Total Critical Care Time: 60 Attestation: Vehicle care time 60 minutes managing patient's code respiratory failure and altered mental status with nonresponsiveness. Attestation Statement - Attestation Attestation: Patient was seen with resident physician. I reviewed the history, physical, assessment and plan, and agree with the findings. I also personally evaluated this patient and had [id number] time with this patient. 68-year-old male brought in unresponsive via EMS from [facility]. History from EMS is that patient became unresponsive while attempting to transfer him to a cot. EMS states that when he got there he was severely hypoxic and blue with a pulse ox in the 50s and a bradycardic heart rate. He was given an oral airway and they started bagging with oxygen. They said this improved his pulse ox but he really had not been responsive. There is no mention of pulse. Patient was completely unable to provide any history. Review of systems unobtainable secondary to patient condition. Physical exam vital signs patient initially was hypertensive but that was taken right after he was given epinephrine. ENT shows no signs of traumatic injury. Heart regular rhythm but very distant heart sounds. Lung sounds were difficult to auscultate but present with bagging. Abdomen very obese patient has no pain response. Skin no rashes. Psych unable to obtain. Neurological exam unable to obtain secondary to patient's unresponsiveness. ED course. Patient obviously presented in extremis. He was intubated 2 IVs were placed. At one point we cannot find a pulse chest compressions were started he was given a milligram of epinephrine. This brought up his heart rate pretty substantially and an EKGs taken at that time demonstrated ST segment elevation in the inferior leads. Once the epinephrine wore off these ST segment elevation normalized. Patient had some attempts at fighting and/or breathing against the vent. He was not responsive to painful stimuli but did have the respiratory drive still intact on a limited basis. I we did contact interventional cardiology will only got the first EKG he suggested repeat EKGs and to keep him notified. At this point a STEMI alert was not called because the EKG was normalizing and the patient had other issues that need to be addressed. A full cardiac and neurologic and septic workup will be done. Patient will be admitted to the intensive care unit. He is also given a fluid bolus small one of 500 mL secondary to the patient's history of CHF. Critical care time for this patient was 1 hour. Patient was intubated by respiratory no rapid sequence medications were required because of patient condition. I was present for the entire procedure. Through the course of his stay multiple abnormalities were found. These are in the clinical impressions section of this note. We did speak with nephrology to look for additional recommendations on treatment of hyperkalemia. They recommended just repeating the potassium and then admitting the patient to the ICU for potential dialysis. We also did a bedside ultrasound of the heart because of his chest x-ray. No distinct pericardial effusion could be seen, the study was somewhat hampered by the patient's body habitus. Hemodynamically though he improved once we had a stable airway with a good blood pressure good pulse ox we kept him sedated so that he tolerated the tube okay. Head CT scan was also obtained and that was negative. Eventually spoke with the hospitalist service once all the information was back and they agreed to accept the patient to the ICU for admission. Patient was also given IV antibiotics either for urine infection or because he may have had pneumonia. Recent cultures demonstrated a sensitivity to the agents we selected. Patient remained in critical condition. I agree with the resident physician assessment and plan.
[2018-11-27] MEDS ORDERED: *HR* Midazolam HCl 2 MG/2 ML VIAL IVP ONE (15:45)
[2018-11-27 15:57] LABS: Basophils % 0.4 %; Eosinophils # 0.1 K/mcL (0.0-0.6); Eosinophils % 0.7 %; Hematocrit 31.3 % (37.5-50.1); Hemoglobin 9.5 g/dL (12.9-16.9); Immature Granulocytes % 1.2 % (0-4); Lymphocytes # 1.4 K/mcL (0.6-4.6); Lymphocytes % 17.2 %; Mean Corpuscular HGB Conc 30.4 g/dL (31.6-35.5); Mean Corpuscular Hemoglobin 25.6 pg (28.0-33.3); Mean Corpuscular Volume 84.4 fL (83.0-100.0); Mean Platelet Volume 10.1 fL (9.4-12.4); Monocytes # 0.6 K/mcL (0.0-1.3); Monocytes % 7.2 %; Neutrophils # 6.1 K/mcL (1.6-8.9); Platelet Count 264 K/mcL (140-400); Red Blood Count 3.71 M/mcL (4.19-5.50); Red Cell Distribution Width 16.5 % (11.5-14.5); Segmented Neutrophils % 73.3 %
[2018-11-27 16:05] LABS: INR 1.2; Prothrombin Time 13.2 Seconds (9.4-12.1)
[2018-11-27 16:08] LABS: Activated Partial Thrombo Time 34.5 Seconds (26.0-36.0)
[2018-11-27 16:11] LABS: ABG Base Excess -6 mEq/L (-2 to 3); ABG HCO3 21 mEq/L (21-27); ABG Oxygen Saturation 98 % (95-98); ABG PCO2 46 mmHg (35-45); ABG PH 7.27 pH Units (7.32-7.45); ABG PO2 112 mmHg (85-104); ABG TCO2 22 mEq/L (20-26); Blood Gas Modality ASSIST CONTROL; Blood Gas PEEP 5 cm H2O; Blood Gas Respiration Rate 12; Blood Gas VT 550 cc
[2018-11-27 16:22] LABS: Alanine Aminotransferase 11 Units/L (7-52); Albumin 2.9 g/dL (3.5-5.7); Albumin/Globulin Ratio 0.6 (1.1-2.2); Alkaline Phosphatase 71 Units/L (34-104); Aspartate Amino Transferase 15 Units/L (13-39); BUN/Creatinine Ratio 23 (6-26); Bilirubin,Direct 0.1 mg/dL (0.0-0.2); Bilirubin,Indirect 0.3 mg/dL (0.0-1.2); Bilirubin,Total 0.4 mg/dL (0.3-1.0); Blood Urea Nitrogen 51 mg/dL (8-23); Calcium 7.7 mg/dL (8.6-10.3); Carbon Dioxide 20 mEq/L (23-29); Chloride 97 mEq/L (98-107); Globulin 4.5 g/dL (2.4-3.5); Glucose 144 mg/dL (70-105); Magnesium 2.6 mg/dL (1.6-2.6); Osmolality,Calculated 282 (280-300); Phosphorous 6.4 mg/dL (2.7-4.5); Sodium 128 mEq/L (136-145); Total Protein 7.4 g/dL (6.4-8.9); Troponin I < 0.03 ng/mL (< 0.04); eGFR For Non-African Americans 29 (> 60)
[2018-11-27] MEDS ORDERED: Calcium Gluconate 2,000 MG in 0.9 % Sodium Chloride 100 ML IVPB ONE (16:22)
[2018-11-27] MEDS ORDERED: Insulin Human Regular 10 UNIT in 0.9 % Sodium Chloride 10 ML IV ONE (16:22)
[2018-11-27] MEDS ORDERED: *HR* Dextrose 50 % in Water (Syg) 50 ML SYRINGE IVP ONE (16:24)
[2018-11-27] MEDS: FentaNYL (PF) 1,000 MCG in 0.9 % Sodium Chloride 80 ML IVC SCH (16:32)
[2018-11-27] MEDS ORDERED: Bumetanide 1 MG/4 ML VIAL ONE (18:06)
[2018-11-27] MEDS: Bumetanide 1 MG/4 ML VIAL IVP ONE ×2 (18:07→18:08)
[2018-11-27 18:33] LABS: Bilirubin,Urine Small (Negative); Blood,Urine Large (Negative); Clarity,Urine Turbid (Clear); Color,Urine Dark Yellow (Yellow); Glucose,Urine (UA) 100 mg/dL (Normal); Ketones,Urine Negative (Negative); Leukocyte Esterase,Urine Large (Negative); Nitrite,Urine Negative (Negative); Protein,Urine >=300 mg/dL (Neg-Trace); Specific Gravity,Urine 1.026 (1.010-1.025); Urobilinogen,Urine Normal (Normal)
[2018-11-27 18:35] LABS: Bacteria,Urine Few per hpf (None-Few); Squamous Epithelial Cell,Urine Many per lpf (None-Few); WBC,Urine TNTC per hpf (0-3)
[2018-11-27 18:48] LABS: Amorphous Sediment,Urine Few (Few); Hyaline Casts,Urine Few per lpf (None-Few); RBC,Urine TNTC per hpf (0-3); Yeast,Urine Few per hpf (None Seen)
[2018-11-27] MEDS ORDERED: Vancomycin (wt based) 1,000 MG VIAL IVPB SCH ×2 (19:00→21:00)
[2018-11-27] MEDS ORDERED: cefTRIAXone 2,000 MG in Water for inj. (sterile) 20 ML 20 ML IVP SCH (19:00)
[2018-11-27] MEDS ORDERED: Piperacillin/Tazobactam 3.375 GM in 0.9 % Sodium Chloride Mini Bag 100 ML IVPB ONE (19:40)
[2018-11-27] MEDS ORDERED: Artificial Tears SOLN 15 ML BOTTLE BOTH EYES PRN (20:40)
[2018-11-27] MEDS ORDERED: Acetaminophen 325 MG TABLET PO PRN (20:40)
[2018-11-27] MEDS ORDERED: Naloxone 0.4 MG/ML INJ IVP PRN (20:40)
[2018-11-27] MEDS ORDERED: 0.9 % Sodium Chloride 1,000 ML IVC SCH ×2 (20:45)
--- NOTE | 2018-11-27 20:45 | Internal Med History&Physical ---
<BarMini - Last Filed: 11/28/18 01:35> Date of Encounter: 11/28/18 Time of Encounter: 07:41 Internal Medicine - H&P: HPI Chief complaint: respiratory arrest Admitted From: Long-term Nursing Facility Plans for Post Hospital Care: Transfer [facility] Facility History of present illness: Mr. Wright is a 68 year old male who was transferred to the ED by EMS from [place]. EMS had been called to [place] for difficulty breathing. Patient unable to participate in review of systems or provide history. Majority of information comes from chart review and history provided by family.Patient was reportedly unconscious when EMS arrived, reportedly patient was bradycardic (HR 40's) with oxygen saturation in 80's; saturation didn't improve with supplemental O2, so bag valve mask was used. Per ED report, patient had a pulse and detectable rhythm on arrival, but rhythm became disorganized and palpable pulse was lost. ROSC was achieved after 1 round CPR and 1 dose epinephrine, he was intubated in the ED. EKG taken immediately after return of circulation was concerning for ischemia. Atomic Physics Professor Dr. Judie Olsen was consulted by ED and felt the EKG showed accelerated idioventricular rhythm and subsequent EKGs were the result recent CPR. Dr. Olsen felt veterinary laboratory technician was not needed at that time and recommended admission to hospitalist for further evaluation and management. Evaluation in the ED significant for hyperkalemia (7, then 7.2) for which he received calcium gluconate, insulin, D50, and Kayexalate. Potassium 6.9 after interventions, ED consulted nephrology. CXR showed diffuse airspace opacities of right lung and lower 2/3 left hemithorax suggestive of pulmonary edema vs PNA; h e received Bumex for possibility of fluid overload. Purulent drainage was reported to be coming from patient's penis. He received empiric rocephin, vancomycin, and zosyn in the ED for possibility of sepsis. PMSH: recurrent pseudomonas UTI, urinary retention, pacemaker/AICD, combined systolic-diastolic heart failure COPD, DM, HTN, HLD SH: former smoker Past Med Surg Social Fam HX - Past Medical History Medical history: CHF, COPD, diabetes, hyperlipidemia, hypertension Psychiatric history: depression - Past Surgical History Surgical History: pacemaker/AICD, other Additional surgical history: defibrilator - Social History Smoking Status: Former smoker Smokeless Tobacco Status: No Alcohol use: none Drug use: none - Family History Mother Living Status: Hx Family Cancer: Yes (brain tumor) Father Living Status: Hx Family Respiratory Disorders: Yes (COPD) Hx Family Endocrine Disorder: Yes (DM) Internal Medicine - H&P: Meds Aspirin [Lo-Dose Aspirin EC] 81 mg PO DAILY 12/10/16 [History] Sertraline [Zoloft] 100 mg PO DAILY 12/10/16 [History] Lovastatin 10 mg PO HS 04/07/17 [History] Acetaminophen [Tylenol] 650 mg PO Q4HR PRN 10/04/17 [History] Carvedilol 12.5 mg PO BID 10/04/17 [History] Phenol [Chloraseptic] 1 spr MM Q2H PRN 10/04/17 [History] Fluticasone Propionate Nasal [Flonase] 2 spr NS DAILY 12/12/17 [History] Furosemide [Lasix] 40 mg PO DAILY 12/12/17 [History] Potassium Chloride [K-Tab ER] 20 meq PO DAILY 01/11/18 [History] Albuterol Sulfate [Albuterol Inhaler] 2 puff IH [id number] PRN inhaler 01/17/18 [Rx] Tiotropium [Spiriva] 18 mcg IH DAILYR inh 01/17/18 [Rx] Bisacodyl [Gentle Laxative] 10 mg RC DAILY PRN 11/13/18 [History] Diclofenac Sodium [Diclozor] 1 each TP BID PRN 11/13/18 [History] Gabapentin [Neurontin] 300 mg PO TID 11/13/18 [History] Guaifenesin [Diabetic Tussin Ex] 10 ml PO Q4H PRN 11/13/18 [History] Hyoscyamine SL [Levsin Sl] 0.125 mg SL Q2H PRN 11/13/18 [History] Insulin Regular, Human [Novolin R] 0 unit SQ QIDAC 11/13/18 [History] Ipratropium/Albuterol Sulfate [Iprat-Albut 0.5-3(2.5) mg/3 ml] 3 ml IH BID PRN 11/13/18 [History] Loperamide [Imodium] 2 mg PO Q4HR PRN MDD 8mg/24hr 11/13/18 [History] Ondansetron ODT [Zofran ODT] 4 mg SL Q6HR PRN 11/13/18 [History] Promethazine [Phenergan] 25 mg RC Q12H PRN 11/13/18 [History] Saline Nasal [place] [[place] Nasal [place]] 1 spray NS DAILY PRN 11/13/18 [History] Tamsulosin HCl [Flomax] 0.4 mg PO DAILY 11/13/18 [History] rOPINIRole [Requip] 0.25 mg PO HS 11/13/18 [History] Acetaminophen [Tylenol 650mg SUPP] 650 mg RC Q4H PRN 11/14/18 [History] Insulin NPH Human Isophane [Novolin N] 30 unit SQ HS 11/14/18 [History] Insulin NPH Human Isophane [Novolin N] 50 unit SQ QAM 11/14/18 [History] Fluticasone/Umeclidin/Vilanter [Trelegy Ellipta 100-62.5-25] 1 each IH DAILY 11/27/18 [History] Lidocaine Patch [Lidoderm 5% patch] 1 each TP DAILY PRN 11/27/18 [History] Morphine Sulfate [Morphine Oral Solution] 0.25 ml PO Q4H PRN 11/27/18 [History] Tramadol HCl [Ultram] 50 mg PO Q4H PRN 11/27/18 [History] Trazodone HCl 100 mg PO HS 11/27/18 [History] Allergy/AdvReac Type Severity Reaction Status Date / Time No Known Drug Allergies Allergy See Verified 08/20/17 15:01 Comments ROS unobtainable: due to endotracheal tube All Systems PM: A 10-system review of systems was performed and is negative for pertinent findings except as documented above in the HPI. - Constitutional Vitals: Temp Pulse Resp BP Pulse Ox 97.4 F L 64 17 131/70 100 11/27/18 19:06 11/27/18 19:49 11/27/18 20:05 11/27/18 19:49 11/27/18 20:05 Exam: General: intubated and on mechanical ventilation HEENT: head normocephalic/atraumatic, pupils equally round but non-reactive, sclera anicteric, moist mucus membranes, Cardio: RRR, no murmurs, +S1/S2 Pulm: Coarse breath sounds bilaterally, normal respiratory effort Abdomen: obese, soft, non-distended, no rigidity Extremities: No LE edema, cyanosis, or clubbing Neuro: no gag reflex, corneal reflex absent, nonresponsive to painful stimuli, unable to assess mental status d/t endotracheal tube Skin: clean, dry, intact, no visible rashes Internal Med - H&P Results - Labs CBC & Chem 7: 11/27/18 15:25 11/28/18 Unknown Labs: Short CBC 11/27/18 Range/Units 15:25 WBC 8.4 (4.3-11.1) K/mcL Hgb 9.5 L (12.9-16.9) g/dL Hct 31.3 L (37.5-50.1) % Plt Count 264 (140-400) K/mcL Neutrophils # 6.1 (1.6-8.9) K/mcL BMP 11/27/18 11/27/18 11/27/18 15:25 16:36 17:39 Sodium 128 L Potassium 7.0 H* 7.2 H* 6.9 H* Chloride 97 L Carbon Dioxide 20 L BUN 51 H Creatinine 2.25 H Glucose 144 H Calcium 7.7 L 11/27/18 19:32 Sodium Potassium 6.9 H* Chloride Carbon Dioxide BUN Creatinine Glucose Calcium Cardiac Enzymes 11/27/18 Range/Units 15:25 Troponin I < 0.03 (< 0.04) ng/mL Liver Function 11/27/18 Range/Units 15:25 Total Bilirubin 0.4 (0.3-1.0) mg/dL Direct Bilirubin 0.1 (0.0-0.2) mg/dL AST 15 (13-39) Units/L ALT 11 (7-52) Units/L Alkaline Phosphatase 71 (34-104) Units/L Albumin 2.9 L (3.5-5.7) g/dL Urine 11/27/18 Range/Units 18:24 Urine Color Dark Yellow (Yellow) Urine Clarity Turbid A (Clear) Urine pH 5.0 (5.0-8.0) pH Units Ur Specific [place] 1.026 H (1.010-1.025) Urine Protein >=300 H (Neg-Trace) mg/dL Urine Glucose (UA) 100 H (Normal) mg/dL - ABG Interpretation ABG results: 11/27/18 16:06 ABG pH 7.27 L ABG pCO2 46 H ABG pO2 112 H ABG HCO3 21 ABG Total CO2 22 ABG O2 Saturation 98 ABG Base Excess -6 L - Impressions ITS Impressions KUB X-Ray 11/27/18 00:00 IMPRESSION: Enteric tube with tip in the gastric body and proximal side-port in the proximal gastric fundus. D/ / 11/27/2018 16:39:16 Diego Harper MD / faraz Interpreting Provider: Diego Harper MD Chest X-Ray 11/27/18 15:41 IMPRESSION: 1. Satisfactory position of support devices. 2. Extensive airspace disease in the left mid lung and left lung base. Left pleural effusion is suspected. 3. Pulmonary vascular indistinctness in the right lung. Findings could be due to pulmonary edema superimposed. D/ / 11/27/2018 16:38:17 Diego Harper MD / faraz Interpreting Provider: Diego Harper MD Head CT 11/27/18 16:18 IMPRESSION: No acute intracranial abnormality. D/ / Jacinto George MD / Jacinto George MD Interpreting Provider: Jacinto George MD Chest X-Ray 11/27/18 16:28 IMPRESSION: 1. NG tube extends below the left hemidiaphragm, out of the field of view. Endotracheal tube tip projects over the trachea, tip at the level of the aortic knob, 5.7 cm superior to the abran. 2. Unchanged diffuse opacities lower 2/3 left hemithorax compatible with consolidation and pleural effusion. 3. Diffuse findings most typical of congestive heart failure bilateral lungs, though ARDS or diffuse infection are considerations as well. 4. Marked cardiac silhouette enlargement versus pericardial effusion. D/ / Eliseo Valdivia / Eliseo Valdivia Interpreting Provider: Eliseo Valdivia - Assessment and Plan (1) Sepsis Current Visit: Yes Status: Suspected Assessment and plan: Suspected History of recurrent pseudomonas UTI, frequent episodes PNA Turbid urine; positive leukocyte esterase, WBCs, yeast Lactic acid 1.5, then 0.4 Right subclavian CVC secured by general surgery, placed for poor vascular access Not on vasopressor support Empiric abx: rochephin, levaquin, vancomycin, zosyn - BCx and UCx ordered - Sputum culture ordered - Continue empiric abx - Repeat lactic acid - Repeat CXR in AM Qualifiers: Sepsis type: sepsis due to unspecified organism Qualified Code(s): A41.9 - Sepsis, unspecified organism (2) Respiratory arrest before cardiac arrest Current Visit: Yes Status: Acute Assessment and plan: BVM ventilation while en route to ED, subsequent intubation on arrival Respiratory acidosis on AB.27 / 46 / 112 / 21 / 98 CXR: diffuse airspace opacities of right lung and lower 2/3 left hemithorax patterson ggesting pleural effusion and consolidation, CHF vs ARDS vs diffuse infection - Ventilator bundle - Repeat ABG in AM - Repeat CXR in AM (3) Cardiac arrest with successful resuscitation Current Visit: Yes Status: Acute Assessment and plan: ROSC was achieved after 1 round CPR and 1 dose epinephrine in ED Initial troponin < 0.03 Cardiology consulted by ED, cardiology declined to take patient to veterinary laboratory technician - Trend troponin x 2 - Continue telemetry monitoring (4) Hyperkalemia Current Visit: Yes Status: Acute Assessment and plan: K 7.0 on arrival, peak K 7.2 Calcium gluconate, insulin, D50, and Kayexalate given in ED ---> K 6.9 Nephrology consulted by ED - Repeat potassium with BMP in AM - Continue telemetry monitoring (5) JENN (acute kidney injury) Current Visit: Yes Status: Acute Assessment and plan: SCr 2.25 on arrival, baseline SCr 1.2 Suspect d/t decreased renal perfusion in setting of cardiac arrest - Monitor renal function with AM labs - Harper catheter for strict I/O's - Renal protective strategy, avoid nephrotoxins and use renal dosing (6) Hyperphosphatemia Current Visit: Yes Status: Acute Assessment and plan: Phos 6.4 on arrival - Electrolyte protocol - Recheck in AM (7) Diabetes Current Visit: Yes Status: Chronic Assessment and plan: Insulin sliding scale with Q6H glucose checks Qualifiers: Diabetes mellitus type: type 2 Diabetes mellitus correction insulin use: with terminal computer operator use Diabetes mellitus complication status: with hyperglycemia Qualified Code(s): E11.65 - Type 2 diabetes mellitus with hyperglycemia; Z79.4 - buttermaker continuous churn (current) use of insulin; Z79.4 - buttermaker continuous churn (current) use of insulin; Z79.4 - buttermaker continuous churn (current) use of insulin; Z79.4 - FPC (current) use of insulin (8) DVT prophylaxis Current Visit: Yes Status: Acute Assessment and plan: Heparin SubQ (9) Anoxic brain injury Current Visit: Yes Status: Suspected Assessment and plan: Suspect d/t respiratory and subsequent cardiac arrest in setting of suspected sepsis Intubated and on mechanical ventilation Sedation with midazolam and fentanyl gtt No corneal reflex, no gag reflex, no response to painful stimuli on initial evaluation ---> response to painful stimuli during CVC placement - Neurology consult placed - Hypothermia protocol initiated on arrival to ICU - Time Spent With Patient Total time spent is greater than 50% in coordination of care (as documented) at patient's floor/unit and/or counseling patient: <Joe Redding - Last Filed: 11/28/18 04:01> Date of Encounter: 11/27/18 Time of Encounter: 19:35 ROS unobtainable: due to endotracheal tube - Constitutional Vitals: Temp Pulse Resp BP Pulse Ox 95.1 F L 54 21 91/52 99 11/28/18 03:00 11/28/18 03:00 11/28/18 03:00 11/28/18 03:00 11/28/18 03:00 Exam: intubated, sedated, no response to pupillary, corneal, or gag reflex - Head Head exam: Present: atraumatic, normal inspection - Eye Eye exam: Absent: PERRL, scleral icterus - ENT ENT exam: Present: mucous membranes dry Additional comments: ETT/OGT in place - Neck Neck exam general surgery: Present: full ROM, supple, trachea midline. Absent: lymphadenopathy - Respiratory Respiratory exam: Present: rales, rhonchi. Absent: wheezes - Cardiovascular Cardiovascular exam: Present: bradycardia, distant heart sounds, +S1, +S2. Absent: diastolic murmur, systolic murmur - GI/Abdominal GI/Abdominal exam: Present: hypoactive bowel sounds, soft. Absent: guarding, hepatomegaly, mass, rebound, splenomegaly, tenderness - Additional comments: Harper in place; surrounding redness to groin/scrotum suspicious for fungal dermatitis - Extremities Exam Extremities exam: Present: normal capillary refill (~ 3 seconds), warm, radial pulses palpable and symmetrical. Absent: cyanotic, joint swelling - Neurological Exam Neurological exam: Absent: alert, CN II-XII intact, oriented X3 Additional comments: on initial exam --> no corneal, no pupillary, no gag reflex, absent plantar reflex, no response to painful stimuli - Psychiatric Additional comments: unable to assess - Skin Skin exam: Present: dry, erythema (groin/scrotum), warm Internal Med - H&P Results - Labs CBC & Chem 7: 11/27/18 15:25 11/28/18 Unknown Labs: Short CBC 11/27/18 Range/Units 15:25 WBC 8.4 (4.3-11.1) K/mcL Hgb 9.5 L (12.9-16.9) g/dL Hct 31.3 L (37.5-50.1) % Plt Count 264 (140-400) K/mcL Neutrophils # 6.1 (1.6-8.9) K/mcL BMP 11/27/18 11/27/18 11/27/18 15:25 16:36 17:39 Sodium 128 L Potassium 7.0 H* 7.2 H* 6.9 H* Chloride 97 L Carbon Dioxide 20 L BUN 51 H Creatinine 2.25 H Glucose 144 H Calcium 7.7 L 11/27/18 11/27/18 11/28/18 19:32 22:48 Unknown Sodium 128 L 128 L Potassium 6.9 H* 6.6 H* 6.3 H Chloride 101 101 Carbon Dioxide 23 21 L BUN 54 H 54 H Creatinine 2.53 H 2.37 H Glucose 65 L 89 Calcium 8.4 L 7.6 L Cardiac Enzymes 11/27/18 11/27/18 11/28/18 Range/Units 15:25 22:48 Unknown Troponin I < 0.03 0.04 H* 0.04 H* (< 0.04) ng/mL Liver Function 11/27/18 11/27/18 Range/Units 15:25 22:48 Total Bilirubin 0.4 0.3 (0.3-1.0) mg/dL Direct Bilirubin 0.1 0.1 (0.0-0.2) mg/dL AST 15 14 (13-39) Units/L ALT 11 11 (7-52) Units/L Alkaline Phosphatase 71 69 (34-104) Units/L Albumin 2.9 L 3.0 L (3.5-5.7) g/dL Urine 11/27/18 Range/Units 18:24 Urine Color Dark Yellow (Yellow) Urine Clarity Turbid A (Clear) Urine pH 5.0 (5.0-8.0) pH Units Ur Specific [place] 1.026 H (1.010-1.025) Urine Protein >=300 H (Neg-Trace) mg/dL Urine Glucose (UA) 100 H (Normal) mg/dL - ABG Interpretation ABG results: 11/27/18 11/27/18 11/28/18 16:06 23:31 01:04 ABG pH 7.27 L 7.30 L 7.29 L ABG pCO2 46 H 48 H 45 ABG pO2 112 H 190 H 64 L D ABG HCO3 21 24 22 ABG Total CO2 22 25 23 ABG O2 Saturation 98 100 H 90 L ABG Base Excess -6 L -3 L -4 L - EKG Data -: EKG Interpreted by Myself - EKG Data Prior EKG available for review: yes EKG comments: 11/28/18 03:33 wide complex rhythm -- ? junctional vs atrial fib w aberration - Impressions ITS Impressions KUB X-Ray 11/27/18 00:00 IMPRESSION: Enteric tube with tip in the gastric body and proximal side-port in the proximal gastric fundus. D/ / 11/27/2018 16:39:16 Diego Harper MD / faraz Interpreting Provider: Diego Harper MD Chest X-Ray 11/27/18 15:41 IMPRESSION: 1. Satisfactory position of support devices. 2. Extensive airspace disease in the left mid lung and left lung base. Left pleural effusion is suspected. 3. Pulmonary vascular indistinctness in the right lung. Findings could be due to pulmonary edema superimposed. D/ / 11/27/2018 16:38:17 Diego Harper MD / faraz Interpreting Provider: Diego Harper MD Head CT 11/27/18 16:18 IMPRESSION: No acute intracranial abnormality. D/ / Jacinto George MD / Jacinto George MD Interpreting Provider: Jacinto George MD Chest X-Ray 11/27/18 16:28 IMPRESSION: 1. NG tube extends below the left hemidiaphragm, out of the field of view. Endotracheal tube tip projects over the trachea, tip at the level of the aortic knob, 5.7 cm superior to the abran. 2. Unchanged diffuse opacities lower 2/3 left hemithorax compatible with consolidation and pleural effusion. 3. Diffuse findings most typical of congestive heart failure bilateral lungs, though ARDS or diffuse infection are considerations as well. 4. Marked cardiac silhouette enlargement versus pericardial effusion. D/ / Eliseo Valdivia / Eliseo Valdivia Interpreting Provider: Eliseo Valdivia Chest X-Ray 11/27/18 22:20 IMPRESSION: 1. Tip of the endotracheal tube is 6.4 cm above the abran. Right subclavian central venous catheter tip projects over the SVC. Tip of the enteric tube is not well seen distally. 2. Enlarged cardiomediastinal silhouette with findings suggestive of pulmonary edema and bilateral pleural effusions. Underlying consolidation is not excluded. RECOMMENDATION: Consider short interval follow-up examination. Radiographic follow-up to complete resolution. D/ / 11/27/2018 23:09:16 Jacinto George MD / faraz Interpreting Provider: Jacinto George MD - Diagnostic Studies Chest x-ray Status: image reviewed by me (diffuse 5 lobe lung disease -- L>R) - Assessment and Plan (1) Diabetes Current Visit: Yes Status: Chronic Qualifiers: Diabetes mellitus type: type 2 Diabetes mellitus correction insulin use: with correction use Diabetes mellitus complication status: with hyperglycemia Qualified Code(s): E11.65 - Type 2 diabetes mellitus with hyperglycemia; Z79.4 - FPC (current) use of insulin; Z79.4 - buttermaker continuous churn (current) use of insulin; Z79.4 - buttermaker continuous churn (current) use of insulin; Z79.4 - buttermaker continuous churn (current) use of insulin (2) Sepsis Current Visit: Yes Status: Suspected Qualifiers: Sepsis type: sepsis due to unspecified organism Qualified Code(s): A41.9 - Sepsis, unspecified organism (3) DVT prophylaxis Current Visit: Yes Status: Acute (4) JENN (acute kidney injury) Current Visit: Yes Status: Acute (5) Hyperkalemia Current Visit: Yes Status: Acute (6) Hyperphosphatemia Current Visit: Yes Status: Acute (7) Cardiac arrest with successful resuscitation Current Visit: Yes Status: Acute (8) Respiratory arrest before cardiac arrest Current Visit: Yes Status: Acute (9) Anoxic brain injury Current Visit: Yes Status: Suspected - Time Spent With Patient Total time spent is greater than 50% in coordination of care (as documented) at patient's floor/unit and/or counseling patient: - Attending Attestation Upon notification from ER staff, I went to the ER to assess patient right away with Dr. Denney. We assessed him in Trauma Room 2. Patient was intubated and unresponsive. He was sedated on fentanyl and Versed. However, he did not receive any paralytic whatsoever. I spoke with the ER staff, nursing staff, and family at length. Reportedly, patient was having significant respiratory distress at the ECF and EMS were summoned right away. Patient developed respiratory failure and arrest. He received bag mask ventilation en route to the ER. He was intubated emergently in the ER upon arrival. Two minutes after intubation, he suffered cardiac arrest with loss of pulse. He received chest compressions and one round of epinephrine with return of spontaneous circulation. Based upon this information, I was concerned that he would likely benefit from hypothermic protocol. I contacted and discussed with Dr. Gamez the patient case, treatment options, and initiation of hypothermic protocol. He agreed with my recommendation. After my initial assessment of the patient in ER, I met with family and his and discussed with them at length the sequence of events, his critical state, plan of care, and his poor prognosis at this time. Based upon my initial assessment and exam, I am highly suspicious he suffered anoxic brain injury. However, I informed the family that I would wait at least 24-48 hours before we can make that determination. Meanwhile, I informed them that we would proceed with hypothermic protocol. We will try and correct his acidosis, treat his hyperkalemia, and support him hemodynamically and from respiratory standpoint as best we could. Meanwhile, I informed family that we would consult pulmonology, cardiology, nephrology, and neurology to assist in determining his further prognosis, treatment options, and for any further recommendations. Once he moved into the intensive care unit, patient had some hemodynamic instability and lost one of his 2 IVs. Nursing staff requested central venous catheter placement as he was on multiple medications with limited IV access and need for likely pressor support. Therefore, after obtaining consent from , I proceeded to attempt the right femoral CVC with assistance of Dr. Denney. Unfortunately, I was unsuccessful and had to abort the procedure (see separate procedure note). At that point, I summoned Dr. Tesfaye and requested her assistance and services in placing a subclavian CVC. She was successful, and we were able to continue ongoing supportive measures. I had multiple discussions with patient's and family detailing the events from ER to the ICU. He will remain full code. We will have further information and guidance within next 24 - 48 hrs. after further consultation from specialists, diagnostic studies performed, and after completion of the hypothermic protocol. I informed that he is critically ill, that he may not survive, and that he may have suffered anoxic brain injury. Other than my comments above and documented exam findings, I agree with Dr. Denney's assessment and plan. Please note that a total of 122 minutes care time were spent assessing patient, treating patient, coordinating care with Dr. Gamez, and attempting right femoral CVC placement.
[2018-11-27] MEDS ORDERED: Levofloxacin 750 MG/150 ML 750 MG/150 ML BAG IVPB SCH (21:00)
[2018-11-27] MEDS ORDERED: Lidocaine -MPF 1% 5 ML AMPUL ONE (21:23)
--- NOTE | 2018-11-27 22:06 | Procedure Note ---
Date of procedure: 11/27/18 Pre-op diagnosis: Respiratory arrest; Cardiac arrest; s/p resusictation Post-op diagnosis: same Procedure: Right Femoral CVC -- failed attempt I was summoned to patient room by RN asking for CVC placement due to lack of IV access and loss of 1 out of 2 IV sites. Attempts at further peripheral IV's failed per RN. I obtained consent (verbally) in ER from for possible need for CVC placement earlier this evening when I first saw patient and family in ER. Dr. Denney witnessed the conversation and consent. We performed a time out procedure per protocol, and then I prepped and draped patient's right groin in sterile fashion. Using an Arrows 20 cm triple lumen catheter kit, I locally anesthetized his right groin are with the supplied 1% Lidocaine. Chlorhexidine prep was used to sterilize the area. Using Seldinger technique I was able to successfully aspirate the right femoral vein after several attempts and was able canulate on one attempt. However, I was unable to thread the guidewire due to resistance and therefore aborted the procedure. At that point, I consulted and requested Dr. Tesfaye to attempt to place a CVC in the Subclavian or IJ. I stepped out to inform and family that I failed at femoral CVC and that I summoned Dr. Tesfaye's assistance for CVC. They voiced understanding and agreement. Anesthesia: local Surgeon: Joe Redding Was there an scheduling assistant present: Yes Undercar Specialist: Mini Dinero Estimated blood loss (cc): 10 Specimen: none Pathology: none sent Condition: critical Disposition: ICU
[2018-11-27] MEDS ORDERED: Dextrose Gel 15 GM/37.5 ML TUBE PO PRN ×2 (22:53)
[2018-11-27] MEDS ORDERED: D5% in Water 1,000 ML IVC PRN (22:53)
[2018-11-27] MEDS ORDERED: *HR* Dextrose 50 % in Water (Syg) 50 ML SYRINGE IVP PRN (22:53)
[2018-11-27] MEDS: Chlorhexidine Rinse 15 ML MOUTHWASH MM SCH (23:21)
[2018-11-27] MEDS: *HR* Heparin 5,000 UNIT/ML VIAL SQ SCH (23:21)
[2018-11-27 23:28] LABS: Albumin/Globulin Ratio 0.7 (1.1-2.2); Bilirubin,Direct 0.1 mg/dL (0.0-0.2); Bilirubin,Indirect 0.2 mg/dL (0.0-1.2); Bilirubin,Total 0.3 mg/dL (0.3-1.0); Calcium 8.4 mg/dL (8.6-10.3); Globulin 4.5 g/dL (2.4-3.5); Magnesium 2.7 mg/dL (1.6-2.6); Phosphorous 6.5 mg/dL (2.7-4.5); Potassium 6.6 mEq/L (3.5-5.1); Total Protein 7.5 g/dL (6.4-8.9)
[2018-11-27 23:34] LABS: ABG Base Excess -3 mEq/L (-2 to 3); ABG HCO3 24 mEq/L (21-27); ABG Oxygen Saturation 100 % (95-98); ABG PCO2 48 mmHg (35-45); ABG PO2 190 mmHg (85-104); ABG TCO2 25 mEq/L (20-26); Blood Gas Modality ASSIST CONTROL; Blood Gas PEEP 5 cm H2O; Blood Gas Respiration Rate 18; Blood Gas VT 550 cc
--- NOTE | 2018-11-27 23:58 | AcuteCare Surgery Consult Note ---
Date of Encounter: 11/28/18 Time of Encounter: 22:00 Assessment and Plan (1) Poor venous access Current Visit: Yes Status: Acute Recommend central line insertion. Procedure, risks and benefits of CVL are discussed with pts . She understands urgency and possible complications. Possible complications include but, are not limited to bleeding, infection and pnuemothorax. (2) JENN (acute kidney injury) Current Visit: Yes Status: Acute Acutely treated by primary service (3) Cardiac arrest with successful resuscitation Current Visit: Yes Status: Acute Acutely treated by primary service (4) Acute respiratory failure Current Visit: No Status: Acute Acutely treated by primary service Qualifiers: Qualified Code(s): J96.00 - Acute respiratory failure, unspecified whether with hypoxia or hypercapnia History of Present Illness Consult date: 11/27/18 Reason for consult: other (central line placement) Requesting physician: Joe Redding History of present illness: Pt in ICU s/p SD and in need of central venous access. Pt is sedated on ventilator. provides consent for procedure. Past Med Surg Social Fam HX - Past Medical History Medical history: CHF, COPD, diabetes, hyperlipidemia, hypertension Psychiatric history: depression - Past Surgical History Surgical History: pacemaker/AICD, other Additional surgical history: defibrilator - Social History Smoking Status: Former smoker Smokeless Tobacco Status: No Alcohol use: none Drug use: none - Family History Mother Living Status: Hx Family Cancer: Yes (brain tumor) Father Living Status: Hx Family Respiratory Disorders: Yes (COPD) Hx Family Endocrine Disorder: Yes (DM) Medications and Allergies Aspirin [Lo-Dose Aspirin EC] 81 mg PO DAILY 12/10/16 [History] Sertraline [Zoloft] 100 mg PO DAILY 12/10/16 [History] Lovastatin 10 mg PO HS 04/07/17 [History] Acetaminophen [Tylenol] 650 mg PO Q4HR PRN 10/04/17 [History] Carvedilol 12.5 mg PO BID 10/04/17 [History] Phenol [Chloraseptic] 1 spr MM Q2H PRN 10/04/17 [History] Fluticasone Propionate Nasal [Flonase] 2 spr NS DAILY 12/12/17 [History] Furosemide [Lasix] 40 mg PO DAILY 12/12/17 [History] Potassium Chloride [K-Tab ER] 20 meq PO DAILY 01/11/18 [History] Albuterol Sulfate [Albuterol Inhaler] 2 puff IH [id number] PRN inhaler 01/17/18 [Rx] Tiotropium [Spiriva] 18 mcg IH DAILYR inh 01/17/18 [Rx] Bisacodyl [Gentle Laxative] 10 mg RC DAILY PRN 11/13/18 [History] Diclofenac Sodium [Diclozor] 1 each TP BID PRN 11/13/18 [History] Gabapentin [Neurontin] 300 mg PO TID 11/13/18 [History] Guaifenesin [Diabetic Tussin Ex] 10 ml PO Q4H PRN 11/13/18 [History] Hyoscyamine SL [Levsin Sl] 0.125 mg SL Q2H PRN 11/13/18 [History] Insulin Regular, Human [Novolin R] 0 unit SQ QIDAC 11/13/18 [History] Ipratropium/Albuterol Sulfate [Iprat-Albut 0.5-3(2.5) mg/3 ml] 3 ml IH BID PRN 11/13/18 [History] Loperamide [Imodium] 2 mg PO Q4HR PRN MDD 8mg/24hr 11/13/18 [History] Ondansetron ODT [Zofran ODT] 4 mg SL Q6HR PRN 11/13/18 [History] Promethazine [Phenergan] 25 mg RC Q12H PRN 11/13/18 [History] Saline Nasal [place] [[place] Nasal [place]] 1 spray NS DAILY PRN 11/13/18 [History] Tamsulosin HCl [Flomax] 0.4 mg PO DAILY 11/13/18 [History] rOPINIRole [Requip] 0.25 mg PO HS 11/13/18 [History] Acetaminophen [Tylenol 650mg SUPP] 650 mg RC Q4H PRN 11/14/18 [History] Insulin NPH Human [place] [Novolin N] 30 unit SQ HS 11/14/18 [History] Insulin NPH Human Isoph[place] [Novolin N] 50 unit SQ QAM 11/14/18 [History] Fluticasone/Umeclidin/Vilanter [Trelegy Ellipta 100-62.5-25] 1 each IH DAILY 11/27/18 [History] Lidocaine Patch [Lidoderm 5% patch] 1 each TP DAILY PRN 11/27/18 [History] Morphine Sulfate [Morphine Oral Solution] 0.25 ml PO Q4H PRN 11/27/18 [History] Tramadol HCl [Ultram] 50 mg PO Q4H PRN 11/27/18 [History] Trazodone HCl 100 mg PO HS 11/27/18 [History] Allergy/AdvReac Type Severity Reaction Status Date / Time No Known Drug Allergies Allergy See Verified 08/20/17 15:01 Comments Review of Systems ROS unobtainable: due to endotracheal tube All systems PM: The remainder of the systems were reviewed and are negative General Surgery Exam Initial Vital Signs Temp Pulse Resp BP Pulse Ox 0 F L 0 0 221/143 100 11/27/18 15:20 11/27/18 15:20 11/27/18 15:20 11/27/18 15:20 11/27/18 15:20 - General physical appearance other (sedated on vent s/p SD) - Eyes PERRL. negative: normal ocular movement, icteric - ENT dry mucosa - Neck trachea midline, other (very short and broad) - Respiratory normal expansion, clear to auscultation, other (on vent) - Cardiovascular Cardiovascular exam: Present: RRR (s/p SD) - Abdomen Abdomen general surgery: Present: soft (obese) - Integumentary Integumentary general surgery: Present: warm and dry - Neurologic Present: other (sedated on vent) - Musculoskeletal Present: other (sedated on vent) Exam Initial Vital Signs Temp Pulse Resp BP Pulse Ox 0 F L 0 0 221/143 100 11/27/18 15:20 11/27/18 15:20 11/27/18 15:20 11/27/18 15:20 11/27/18 15:20 Results - Labs 11/27/18 15:25 11/27/18 22:48 Abnormal lab results RBC 3.71 M/mcL (4.19-5.50) L 11/27/18 15:25 Hgb 9.5 g/dL (12.9-16.9) L 11/27/18 15:25 Hct 31.3 % (37.5-50.1) L 11/27/18 15:25 MCH 25.6 pg (28.0-33.3) L 11/27/18 15:25 MCHC 30.4 g/dL (31.6-35.5) L 11/27/18 15:25 RDW 16.5 % (11.5-14.5) H 11/27/18 15:25 PT 13.2 Seconds (9.4-12.1) H 11/27/18 15:25 601 mg/dL (169-393) H 11/27/18 22:48 ABG pH 7.30 pH Units (7.32-7.45) L 11/27/18 23:31 ABG pCO2 48 mmHg (35-45) H 11/27/18 23:31 ABG pO2 190 mmHg (85-104) H 11/27/18 23:31 ABG O2 Saturation 100 % (95-98) H 11/27/18 23:31 ABG Base Excess -3 mEq/L (-2 to 3) L 11/27/18 23:31 Sodium 128 mEq/L (136-145) L 11/27/18 22:48 Potassium 6.6 mEq/L (3.5-5.1) H* 11/27/18 22:48 Chloride 97 mEq/L (98-107) L 11/27/18 15:25 Carbon Dioxide 20 mEq/L (23-29) L 11/27/18 15:25 BUN 54 mg/dL (8-23) H 11/27/18 22:48 2.53 mg/dL (0.70-1.30) H 11/27/18 22:48 Est GFR ( Amer) 31 (> 60) L 11/27/18 22:48 Est GFR (Non-Af Amer) 26 (> 60) L 11/27/18 22:48 Glucose 65 mg/dL (70-105) L 11/27/18 22:48 POC Glucose 67 mg/dL (70-99) L 11/27/18 22:59 279 (280-300) L 11/27/18 22:48 Lactic Acid 0.4 mmol/L (0.5-2.2) L 11/27/18 22:48 Calcium 8.4 mg/dL (8.6-10.3) L 11/27/18 22:48 Phosphorus 6.5 mg/dL (2.7-4.5) H 11/27/18 22:48 Magnesium 2.7 mg/dL (1.6-2.6) H 11/27/18 22:48 0.04 ng/mL (< 0.04) H* 11/27/18 22:48 3.0 g/dL (3.5-5.7) L 11/27/18 22:48 4.5 g/dL (2.4-3.5) H 11/27/18 22:48 0.7 (1.1-2.2) L 11/27/18 22:48 Turbid (Clear) A 11/27/18 18:24 Ur Specific [place] 1.026 (1.010-1.025) H 11/27/18 18:24 >=300 mg/dL (Neg-Trace) H 11/27/18 18:24 100 mg/dL (Normal) H 11/27/18 18:24 Large (Negative) H 11/27/18 18:24 Small (Negative) H 11/27/18 18:24 Ur Leukocyte Esterase Large (Negative) H 11/27/18 18:24 TNTC per hpf (0-3) H 11/27/18 18:24 TNTC per hpf (0-3) H 11/27/18 18:24 Ur Squamous Epith Cells Many per lpf (None-Few) H 11/27/18 18:24 Few per hpf (None Seen) H 11/27/18 18:24 Ur Culture Indicated? YES (NO) A 11/27/18 18:24 Diabetes panel 11/27/18 11/27/18 11/27/18 Range/Units 15:25 16:36 17:39 Sodium 128 L (136-145) mEq/L Potassium 7.0 H* 7.2 H* 6.9 H* (3.5-5.1) mEq/L Chloride 97 L (98-107) mEq/L Carbon Dioxide 20 L (23-29) mEq/L BUN 51 H (8-23) mg/dL Creatinine 2.25 H (0.70-1.30) mg/dL Glucose 144 H (70-105) mg/dL Calcium 7.7 L (8.6-10.3) mg/dL AST 15 (13-39) Units/L ALT 11 (7-52) Units/L Alkaline Phosphatase 71 (34-104) Units/L Albumin 2.9 L (3.5-5.7) g/dL 11/27/18 11/27/18 Range/Units 19:32 22:48 Sodium 128 L (136-145) mEq/L Potassium 6.9 H* 6.6 H* (3.5-5.1) mEq/L Chloride 101 (98-107) mEq/L Carbon Dioxide 23 (23-29) mEq/L BUN 54 H (8-23) mg/dL Creatinine 2.53 H (0.70-1.30) mg/dL Glucose 65 L (70-105) mg/dL Calcium 8.4 L (8.6-10.3) mg/dL AST 14 (13-39) Units/L ALT 11 (7-52) Units/L Alkaline Phosphatase 69 (34-104) Units/L Albumin 3.0 L (3.5-5.7) g/dL Calcium panel 11/27/18 11/27/18 Range/Units 15:25 22:48 Calcium 7.7 L 8.4 L (8.6-10.3) mg/dL Phosphorus 6.4 H 6.5 H (2.7-4.5) mg/dL Albumin 2.9 L 3.0 L (3.5-5.7) g/dL Pituitary panel 11/27/18 11/27/18 11/27/18 Range/Units 15:25 16:36 17:39 Sodium 128 L (136-145) mEq/L Potassium 7.0 H* 7.2 H* 6.9 H* (3.5-5.1) mEq/L Chloride 97 L (98-107) mEq/L Carbon Dioxide 20 L (23-29) mEq/L BUN 51 H (8-23) mg/dL Creatinine 2.25 H (0.70-1.30) mg/dL Glucose 144 H (70-105) mg/dL Calcium 7.7 L (8.6-10.3) mg/dL 11/27/18 11/27/18 Range/Units 19:32 22:48 Sodium 128 L (136-145) mEq/L Potassium 6.9 H* 6.6 H* (3.5-5.1) mEq/L Chloride 101 (98-107) mEq/L Carbon Dioxide 23 (23-29) mEq/L BUN 54 H (8-23) mg/dL Creatinine 2.53 H (0.70-1.30) mg/dL Glucose 65 L (70-105) mg/dL Calcium 8.4 L (8.6-10.3) mg/dL Adrenal panel 11/27/18 11/27/18 11/27/18 Range/Units 15:25 16:36 17:39 Sodium 128 L (136-145) mEq/L Potassium 7.0 H* 7.2 H* 6.9 H* (3.5-5.1) mEq/L Chloride 97 L (98-107) mEq/L Carbon Dioxide 20 L (23-29) mEq/L BUN 51 H (8-23) mg/dL Creatinine 2.25 H (0.70-1.30) mg/dL Glucose 144 H (70-105) mg/dL Calcium 7.7 L (8.6-10.3) mg/dL Total Bilirubin 0.4 (0.3-1.0) mg/dL AST 15 (13-39) Units/L ALT 11 (7-52) Units/L Alkaline Phosphatase 71 (34-104) Units/L Albumin 2.9 L (3.5-5.7) g/dL 11/27/18 11/27/18 Range/Units 19:32 22:48 Sodium 128 L (136-145) mEq/L Potassium 6.9 H* 6.6 H* (3.5-5.1) mEq/L Chloride 101 (98-107) mEq/L Carbon Dioxide 23 (23-29) mEq/L BUN 54 H (8-23) mg/dL Creatinine 2.53 H (0.70-1.30) mg/dL Glucose 65 L (70-105) mg/dL Calcium 8.4 L (8.6-10.3) mg/dL Total Bilirubin 0.3 (0.3-1.0) mg/dL AST 14 (13-39) Units/L ALT 11 (7-52) Units/L Alkaline Phosphatase 69 (34-104) Units/L Albumin 3.0 L (3.5-5.7) g/dL All other labs normal. Consult Discharge Plan - Plan Referrals: Ander Blankenship MD [Primary Care Provider] -
--- NOTE | 2018-11-28 | Acute Care Surg Procedure Note ---
Date of procedure: 11/27/18 Pre-op diagnosis: poor venous access Post-op diagnosis: same Procedure: Right subclavian SCV central venous line placement Pre-op dx: need for central venous access Post-op dx: same Procedure: Insertion of right subclavian vein central venous line Surgeon: MICHELLE Anasthesia: Local EBL: min Complication: none Narrative: Pt was placed in Trendelenburg position. Anterior chest wall and bilateral neck is prepped and draped in usual sterile fashion. The skin under the right SCV is localized with 1% lidocaine. A 14-gauge Cook needle is inserted into the right SCV. Dark red blood in aspirated. A guidewire is placed. The needle is removed. An 11-scalpel is used to incise the skin at the guidewire insertion site. A dilator is used to dilate the subcutaneous soft tissue. A triple lumen central line is placed. Dark red blood is aspirated and flushed from each of the three lumens. The line is secured to the ACW with suture. A biodisc is placed. A sterile dressing is placed. Pt tolerated procedure well. STAT PCXR is ordered. Complications: none Anesthesia: local, IV sedation Surgeon: Gina Melo Estimated blood loss (cc): 20 Pathology: none sent Condition: critical Disposition: ICU
[2018-11-28] MEDS: Artificial Tears SOLN 15 ML BOTTLE BOTH EYES SCH ×7 (00:14→23:11)
[2018-11-28] MEDS: D5% in 0.9% NACL 1,000 ML IVC SCH ×4 (00:14→19:22)
[2018-11-28] MEDS: Insulin LISPRO 300 UNITS/3 ML VIAL SQ SCH ×4 (00:19→18:16)
[2018-11-28 01:08] LABS: ABG Base Excess -4 mEq/L (-2 to 3); ABG HCO3 22 mEq/L (21-27); ABG Oxygen Saturation 90 % (95-98); ABG PCO2 45 mmHg (35-45); ABG PH 7.29 pH Units (7.32-7.45); ABG PO2 64 mmHg (85-104); ABG TCO2 23 mEq/L (20-26); Blood Gas Modality ASSIST CONTROL; Blood Gas PEEP 5 cm H2O; Blood Gas Respiration Rate 18; Blood Gas VT 600 cc
[2018-11-28 01:29] LABS: Calcium 7.6 mg/dL (8.6-10.3); Potassium 6.3 mEq/L (3.5-5.1)
[2018-11-28 01:36] LABS: Troponin I 0.04 ng/mL (< 0.04)
[2018-11-28] MEDS: FentaNYL (PF) 1,000 MCG in 0.9 % Sodium Chloride 80 ML IVC SCH ×3 (02:36→20:09)
[2018-11-28] MEDS ORDERED: Sodium Bicarbonate 50 MEQ/50 ML VIAL IVP ONE (03:40)
[2018-11-28] MEDS: Hydrocortisone Sodium Succ 100 MG/2 ML VIAL IVP SCH ×3 (03:54→20:07)
[2018-11-28 05:15] LABS: ABG Base Excess -3 mEq/L (-2 to 3); ABG HCO3 23 mEq/L (21-27); ABG Oxygen Saturation 95 % (95-98); ABG PCO2 43 mmHg (35-45); ABG PH 7.34 pH Units (7.32-7.45); ABG PO2 80 mmHg (85-104); ABG TCO2 24 mEq/L (20-26); Blood Gas Modality ASSIST CONTROL; Blood Gas PEEP 5 cm H2O; Blood Gas Respiration Rate 20; Blood Gas VT 600 cc
[2018-11-28] MEDS: *HR* Heparin 5,000 UNIT/ML VIAL SQ SCH ×3 (05:39→23:10)
--- NOTE | 2018-11-28 07:10 | Pulmonology Consult Note ---
<Vishnu Gonzales - Last Filed: 11/28/18 13:24> Date of Encounter: 11/28/18 Time of Encounter: 07:10 Assessment and Plan (1) Anoxic brain injury Current Visit: Yes Status: Suspected -Likely anoxic brain injury 2/2 resp arrest at home facility -On hypothermia protocol following cardiac arrest. Started ~2100 11/27/18 and will continue for 24 hours -Intubated sedated with propofol -Neuro on board -Reassess neuro function after rewarmed (2) Respiratory arrest before cardiac arrest Current Visit: Yes Status: Acute -Resp arrest prior to arrival to hosp requiring bvm vent and intubated upon arrival -Initial ABG pH 7.3, pCO2 48, pO2 190, 100% on 100% FiO2 -ABG today improved wnl on mechanical ventilation -CXR 11/28/18 with complete opacification L hemithorax (3) Cardiac arrest with successful resuscitation Current Visit: Yes Status: Acute -CPR initiated in ED with ROSC acheived after 1 round CPR and 1 dose epi -Initial trop <0.03 with repeat x3 adynamic at 0.04 -Cards consulted in ED with no plans for cath intervention (4) Sepsis Current Visit: Yes Status: Suspected -Suspected sepsis on arrival and started on empiric treatment -L hemithorax complete opacification on cxr pneumonia vs effusion -Bedside US today -Continue vanc, zosyn, and levofloxacin and stopping ceftriaxone -BC x2 11/27/18 pending -Urine culture 11/27/18 pending -Hypothermic 94.6 but on active cooling currently -Vitals stable -MRSA swab pending Qualifiers: Sepsis type: sepsis due to unspecified organism Qualified Code(s): A41.9 - Sepsis, unspecified organism (5) JENN (acute kidney injury) Current Visit: Yes Status: Acute -Likely 2/2 hypoperfusion post cardiac arrest in the setting of suspected sepsis -Baseline Cr ~1.2 -Cr peak 2.53 -Cr 2.35 today -On empiric vanc and zosyn and will deescalate as cultures return given current renal function -Uop 425ml today -Neph on board (6) Hyperkalemia Current Visit: Yes Status: Acute -K on arrival 7, increased to 7.2 in ED -Received kayexalate, D50, Ca gluconate, and insulin in ED -K 6.3 today without BM -60mg kayexalate today and monitor for BM today -Neph following (7) Diabetes Current Visit: Yes Status: Chronic -SSI and q6h accuchek as NPO Qualifiers: Diabetes mellitus type: type 2 Diabetes mellitus continuous churn buttermaker insulin use: with senior living use Diabetes mellitus complication status: with hyperglycemia Qualified Code(s): E11.65 - Type 2 diabetes mellitus with hyperglycemia; Z79.4 - senior living (current) use of insulin; Z79.4 - oysterman (current) use of insulin; Z79.4 - oysterman (current) use of insulin; Z79.4 - oysterman (current) use of insulin (8) CHF (congestive heart failure) Current Visit: No Status: Chronic -Hx of systolic and diastolic heart failure -TTE pending today Qualifiers: Heart failure type: diastolic Heart failure chronicity: acute on chronic Qualified Code(s): I50.33 - Acute on chronic diastolic (congestive) heart failure (9) DVT prophylaxis Current Visit: No Status: Acute -Chemical prophylaxis History of Present Illness Consult date: 11/28/18 Requesting physician: Joe Redding Reason for consult: pneumonia, pleural effusion, other (intubated) Chief complaint: Resp failure History of present illness: 68 year old man with pmh significant for CHF, COPD, DM, HTN, dyslipidemia. Hx mostly from medical record as he is intubated and sedated. EMS was called to his facility after found hypoxic with sats in 80's which did not improve with O2, bradycardic, and in eventually resp arrest. Upon arrival to ED he had pulse which then progressed with disorganized rhythm on ECG and pulse became not palpable at which point CPR was started for 1 round with 1 dose epi given after which ROSC was acheived. He was intubated in the ED. Repeat ECG had concern for ischemia. Cardiology deemed ECG changes due to CPR and quality lab technician not indicated. Hyperkalemia as high as 7.2 treated in ED prior to admission. ~2100 11/27/18 hypothermia protocol began for in hospital cardiac arrest. Past Med Surg Social Fam HX - Past Medical History Medical history: CHF, COPD, diabetes, hyperlipidemia, hypertension Psychiatric history: depression - Past Surgical History Surgical History: pacemaker/AICD, other Additional surgical history: defibrilator - Social History Smoking Status: Former smoker Smokeless Tobacco Status: No Alcohol use: none Drug use: none - Family History Mother Living Status: Hx Family Cancer: Yes (brain tumor) Father Living Status: Hx Family Respiratory Disorders: Yes (COPD) Hx Family Endocrine Disorder: Yes (DM) Medications and Allergies Aspirin [Lo-Dose Aspirin EC] 81 mg PO DAILY 12/10/16 [History] Sertraline [Zoloft] 100 mg PO DAILY 12/10/16 [History] Lovastatin 10 mg PO HS 04/07/17 [History] Acetaminophen [Tylenol] 650 mg PO Q4HR PRN 10/04/17 [History] Carvedilol 12.5 mg PO BID 10/04/17 [History] Phenol [Chloraseptic] 1 spr MM Q2H PRN 10/04/17 [History] Fluticasone Propionate Nasal [Flonase] 2 spr NS DAILY 12/12/17 [History] Furosemide [Lasix] 40 mg PO DAILY 12/12/17 [History] Potassium Chloride [K-Tab ER] 20 meq PO DAILY 01/11/18 [History] Albuterol Sulfate [Albuterol Inhaler] 2 puff IH [id number] PRN inhaler 01/17/18 [Rx] Tiotropium [Spiriva] 18 mcg IH DAILYR inh 01/17/18 [Rx] Bisacodyl [Gentle Laxative] 10 mg RC DAILY PRN 11/13/18 [History] Diclofenac Sodium [Diclozor] 1 each TP BID PRN 11/13/18 [History] Gabapentin [Neurontin] 300 mg PO TID 11/13/18 [History] Guaifenesin [Diabetic Tussin Ex] 10 ml PO Q4H PRN 11/13/18 [History] Hyoscyamine SL [Levsin Sl] 0.125 mg SL Q2H PRN 11/13/18 [History] Insulin Regular, Human [Novolin R] 0 unit SQ QIDAC 11/13/18 [History] Ipratropium/Albuterol Sulfate [Iprat-Albut 0.5-3(2.5) mg/3 ml] 3 ml IH BID PRN 11/13/18 [History] Loperamide [Imodium] 2 mg PO Q4HR PRN MDD 8mg/24hr 11/13/18 [History] Ondansetron ODT [Zofran ODT] 4 mg SL Q6HR PRN 11/13/18 [History] Promethazine [Phenergan] 25 mg RC Q12H PRN 11/13/18 [History] Saline Nasal [place] [[place] Nasal [place]] 1 spray NS DAILY PRN 11/13/18 [History] Tamsulosin HCl [Flomax] 0.4 mg PO DAILY 11/13/18 [History] rOPINIRole [Requip] 0.25 mg PO HS 11/13/18 [History] Acetaminophen [Tylenol 650mg SUPP] 650 mg RC Q4H PRN 11/14/18 [History] Insulin NPH Human Isophane [Novolin N] 30 unit SQ HS 11/14/18 [History] Insulin NPH Human Isophane [Novolin N] 50 unit SQ QAM 11/14/18 [History] Fluticasone/Umeclidin/Vilanter [Trelegy Ellipta 100-62.5-25] 1 each IH DAILY 11/27/18 [History] Lidocaine Patch [Lidoderm 5% patch] 1 each TP DAILY PRN 11/27/18 [History] Morphine Sulfate [Morphine Oral Solution] 0.25 ml PO Q4H PRN 11/27/18 [History] Tramadol HCl [Ultram] 50 mg PO Q4H PRN 11/27/18 [History] Trazodone HCl 100 mg PO HS 11/27/18 [History] Allergy/AdvReac Type Severity Reaction Status Date / Time No Known Drug Allergies Allergy See Verified 08/20/17 15:01 Comments ROS unobtainable: due to endotracheal tube All Systems: The remainder of the systems were reviewed and are negative Physical Examination Vital Signs: Vital Signs, Last 4 Hours Temp Pulse Resp BP Pulse Ox 11/28/18 06:00 95 F L 54 20 109/57 96 11/28/18 05:40 20 105/57 95 11/28/18 05:00 95 F L 52 20 109/60 96 11/28/18 04:00 95.1 F L 52 21 92/53 97 11/28/18 03:28 20 91/52 98 General appearance: no acute distress, other (intubated and sedated ) Eyes: nonicteric ENT: oropharynx dry Neck: supple, no lymphadenopathy Effort: other (intubated) Auscultation: bilateral: clear Cardiovascular: regular rate and rhythm, murmur noted (2/6 systolic ejection murmur best heard R 2nd intercostal without radiation to carotids ) Gastrointestinal: hypoactive bowel sounds, soft, non-distended Integumentary: normal Extremities: no cyanosis, pulses normal, cool other (responds to painful stimuli ) other (intubated and sedated ) Ventilator Settings Ventilator Settings: Ventilator Settings, Last 8 Hours Ventilator Tidal Volume 600 Setting Ventilator Tidal Volume 600 Setting Ventilator Tidal Volume 600 Setting Ventilator Tidal Volume 600 Setting Ventilator Tidal Volume 600 Setting Ventilator Tidal Volume 600 Setting Ventilator Tidal Volume 600 Setting Ventilator Tidal Volume 600 Setting Ventilator Tidal Volume 600 Setting Ventilator Tidal Volume 600 Setting Ventilator Tidal Volume 600 Setting Ventilator Tidal Volume 600 Setting Ventilator Tidal Volume 600 Setting Ventilator Tidal Volume 550 Setting Ventilator Respiratory Rate 20 Setting Ventilator Respiratory Rate 20 Setting Ventilator Respiratory Rate 20 Setting Ventilator Respiratory Rate 20 Setting Ventilator Respiratory Rate 20 Setting Ventilator Respiratory Rate 20 Setting Ventilator Respiratory Rate 20 Setting Ventilator Respiratory Rate 20 Setting Ventilator Respiratory Rate 20 Setting Ventilator Respiratory Rate 18 Setting Ventilator Respiratory Rate 20 Setting Ventilator Respiratory Rate 18 Setting Ventilator Respiratory Rate 18 Setting Ventilator Respiratory Rate 18 Setting Actual Respiratory Rate 20 Actual Respiratory Rate 20 Actual Respiratory Rate 20 Actual Respiratory Rate 22 Actual Respiratory Rate 21 Actual Respiratory Rate 20 Actual Respiratory Rate 20 Actual Respiratory Rate 20 Actual Respiratory Rate 20 Actual Respiratory Rate 18 Actual Respiratory Rate 19 Positive End Expiratory 5 Pressure Positive End Expiratory 5 Pressure Positive End Expiratory 5 Pressure Positive End Expiratory 5 Pressure Positive End Expiratory 5 Pressure Positive End Expiratory 5 Pressure Positive End Expiratory 5 Pressure Positive End Expiratory 5 Pressure Positive End Expiratory 5 Pressure Positive End Expiratory 5 Pressure Positive End Expiratory 5 Pressure Positive End Expiratory 5 Pressure Positive End Expiratory 5 Pressure Positive End Expiratory 5 Pressure Peak Inspiratory Airway 23 Pressure Peak Inspiratory Airway 25 Pressure Peak Inspiratory Airway 26 Pressure Peak Inspiratory Airway 27 Pressure Peak Inspiratory Airway 27 Pressure Peak Inspiratory Airway 26 Pressure Peak Inspiratory Airway 26 Pressure Peak Inspiratory Airway 26 Pressure Peak Inspiratory Airway 28 Pressure Peak Inspiratory Airway 36 Pressure Results - Laboratory Findings CBC and BMP: 11/27/18 15:25 11/28/18 Unknown ABG ABG pH 7.34 pH Units (7.32-7.45) 11/28/18 05:10 ABG pCO2 43 mmHg (35-45) 11/28/18 05:10 ABG pO2 80 mmHg (85-104) L 11/28/18 05:10 ABG O2 Saturation 95 % (95-98) 11/28/18 05:10 PT/INR, D-dimer PT 13.2 Seconds (9.4-12.1) H 11/27/18 15:25 Abnormal lab findings: Abnormal lab results RBC 3.71 M/mcL (4.19-5.50) L 11/27/18 15:25 Hgb 9.5 g/dL (12.9-16.9) L 11/27/18 15:25 Hct 31.3 % (37.5-50.1) L 11/27/18 15:25 MCH 25.6 pg (28.0-33.3) L 11/27/18 15:25 MCHC 30.4 g/dL (31.6-35.5) L 11/27/18 15:25 RDW 16.5 % (11.5-14.5) H 11/27/18 15:25 PT 13.2 Seconds (9.4-12.1) H 11/27/18 15:25 601 mg/dL (169-393) H 11/27/18 22:48 ABG pH 7.29 pH Units (7.32-7.45) L 11/28/18 01:04 ABG pCO2 48 mmHg (35-45) H 11/27/18 23:31 ABG pO2 80 mmHg (85-104) L 11/28/18 05:10 ABG O2 Saturation 90 % (95-98) L 11/28/18 01:04 ABG Base Excess -3 mEq/L (-2 to 3) L 11/28/18 05:10 Sodium 128 mEq/L (136-145) L 11/28/18 Unknown Potassium 6.3 mEq/L (3.5-5.1) H 11/28/18 Unknown Chloride 97 mEq/L (98-107) L 11/27/18 15:25 Carbon Dioxide 21 mEq/L (23-29) L 11/28/18 Unknown BUN 54 mg/dL (8-23) H 11/28/18 Unknown 2.37 mg/dL (0.70-1.30) H 11/28/18 Unknown Est GFR ( Amer) 33 (> 60) L 11/28/18 Unknown Est GFR (Non-Af Amer) 28 (> 60) L 11/28/18 Unknown Glucose 65 mg/dL (70-105) L 11/27/18 22:48 POC Glucose 107 mg/dL (70-99) H 11/28/18 05:36 279 (280-300) L 11/27/18 22:48 Lactic Acid 0.4 mmol/L (0.5-2.2) L 11/28/18 Unknown Calcium 7.6 mg/dL (8.6-10.3) L 11/28/18 Unknown Phosphorus 6.5 mg/dL (2.7-4.5) H 11/27/18 22:48 Magnesium 2.7 mg/dL (1.6-2.6) H 11/27/18 22:48 0.04 ng/mL (< 0.04) H* 11/28/18 Unknown 3.0 g/dL (3.5-5.7) L 11/27/18 22:48 4.5 g/dL (2.4-3.5) H 11/27/18 22:48 0.7 (1.1-2.2) L 11/27/18 22:48 Turbid (Clear) A 11/27/18 18:24 Ur Specific [place] 1.026 (1.010-1.025) H 11/27/18 18:24 >=300 mg/dL (Neg-Trace) H 11/27/18 18:24 100 mg/dL (Normal) H 11/27/18 18:24 Large (Negative) H 11/27/18 18:24 Small (Negative) H 11/27/18 18:24 Ur Leukocyte Esterase Large (Negative) H 11/27/18 18:24 TNTC per hpf (0-3) H 11/27/18 18:24 TNTC per hpf (0-3) H 11/27/18 18:24 Ur Squamous Epith Cells Many per lpf (None-Few) H 11/27/18 18:24 Few per hpf (None Seen) H 11/27/18 18:24 Ur Culture Indicated? YES (NO) A 11/27/18 18:24 - Microbiology Findings Microbiology Findings: Microbiology, Last 48 Hours 11/27/18 18:24 Urine Culture - Preliminary Urine,[place] Culture is incubating. 11/27/18 15:55 Blood Culture - Preliminary Peripheral Venipuncture Culture is incubating and being continuously monitored for growth. Final report to follow. 11/27/18 15:55 Blood Culture - Preliminary Peripheral Venipuncture Culture is incubating and being continuously monitored for growth. Final report to follow. - Clinical Findings Intake & Output: Intake & Output 11/27/18 11/27/18 11/28/18 15:59 23:59 07:59 Intake Total 762.1 / 762.1 1394 / 1394 Balance 762.1 / 762.1 1394 / 1394 Weight 161.524 kg 161.4 kg Consult Discharge Plan - Plan Referrals: Ander Blankenship MD [Primary Care Provider] - <Sera Medina - Last Filed: 12/04/18 10:08> Date of Encounter: 11/28/18 All Systems: The remainder of the systems were reviewed and are negative Physical Examination Vital Signs: Vital Signs, Last 4 Hours Temp Pulse Resp BP Pulse Ox 11/28/18 10:00 56 20 124/65 95 11/28/18 09:00 95.2 F L 56 20 113/67 95 11/28/18 08:00 95.2 F L 56 20 120/64 94 11/28/18 07:27 54 11/28/18 07:00 95.2 F L 54 20 107/65 95 Ventilator Settings Ventilator Settings: Ventilator Settings, Last 8 Hours Ventilator Tidal Volume 600 Setting Ventilator Tidal Volume 600 Setting Ventilator Tidal Volume 600 Setting Ventilator Tidal Volume 600 Setting Ventilator Tidal Volume 600 Setting Ventilator Tidal Volume 600 Setting Ventilator Tidal Volume 600 Setting Ventilator Respiratory Rate 20 Setting Ventilator Respiratory Rate 20 Setting Ventilator Respiratory Rate 20 Setting Ventilator Respiratory Rate 20 Setting Ventilator Respiratory Rate 20 Setting Ventilator Respiratory Rate 20 Setting Ventilator Respiratory Rate 20 Setting Actual Respiratory Rate 20 Actual Respiratory Rate 20 Actual Respiratory Rate 20 Actual Respiratory Rate 22 Actual Respiratory Rate 21 Actual Respiratory Rate 20 Positive End Expiratory 5 Pressure Positive End Expiratory 5 Pressure Positive End Expiratory 5 Pressure Positive End Expiratory 5 Pressure Positive End Expiratory 5 Pressure Positive End Expiratory 5 Pressure Positive End Expiratory 5 Pressure Peak Inspiratory Airway 23 Pressure Peak Inspiratory Airway 25 Pressure Peak Inspiratory Airway 26 Pressure Peak Inspiratory Airway 27 Pressure Peak Inspiratory Airway 27 Pressure Results - Laboratory Findings CBC and BMP: 12/04/18 03:30 12/04/18 03:30 ABG ABG pH 7.34 pH Units (7.32-7.45) 11/28/18 05:10 ABG pCO2 43 mmHg (35-45) 11/28/18 05:10 ABG pO2 80 mmHg (85-104) L 11/28/18 05:10 ABG O2 Saturation 95 % (95-98) 11/28/18 05:10 PT/INR, D-dimer PT 13.2 Seconds (9.4-12.1) H 11/27/18 15:25 Abnormal lab findings: Abnormal lab results RBC 3.71 M/mcL (4.19-5.50) L 11/27/18 15:25 Hgb 9.5 g/dL (12.9-16.9) L 11/27/18 15:25 Hct 31.3 % (37.5-50.1) L 11/27/18 15:25 MCH 25.6 pg (28.0-33.3) L 11/27/18 15:25 MCHC 30.4 g/dL (31.6-35.5) L 11/27/18 15:25 RDW 16.5 % (11.5-14.5) H 11/27/18 15:25 PT 13.2 Seconds (9.4-12.1) H 11/27/18 15:25 601 mg/dL (169-393) H 11/27/18 22:48 ABG pH 7.29 pH Units (7.32-7.45) L 11/28/18 01:04 ABG pCO2 48 mmHg (35-45) H 11/27/18 23:31 ABG pO2 80 mmHg (85-104) L 11/28/18 05:10 ABG O2 Saturation 90 % (95-98) L 11/28/18 01:04 ABG Base Excess -3 mEq/L (-2 to 3) L 11/28/18 05:10 Sodium 128 mEq/L (136-145) L 11/28/18 Unknown Potassium 6.3 mEq/L (3.5-5.1) H 11/28/18 Unknown Chloride 97 mEq/L (98-107) L 11/27/18 15:25 Carbon Dioxide 21 mEq/L (23-29) L 11/28/18 Unknown BUN 54 mg/dL (8-23) H 11/28/18 Unknown 2.37 mg/dL (0.70-1.30) H 11/28/18 Unknown Est GFR ( Amer) 33 (> 60) L 11/28/18 Unknown Est GFR (Non-Af Amer) 28 (> 60) L 11/28/18 Unknown Glucose 65 mg/dL (70-105) L 11/27/18 22:48 POC Glucose 133 mg/dL (70-99) H 11/28/18 09:02 6.6 % (-5.6) H 11/28/18 00:29 279 (280-300) L 11/27/18 22:48 Lactic Acid 0.4 mmol/L (0.5-2.2) L 11/28/18 Unknown Calcium 7.6 mg/dL (8.6-10.3) L 11/28/18 Unknown Phosphorus 6.5 mg/dL (2.7-4.5) H 11/27/18 22:48 Magnesium 2.7 mg/dL (1.6-2.6) H 11/27/18 22:48 0.04 ng/mL (< 0.04) H* 11/28/18 Unknown 3.0 g/dL (3.5-5.7) L 11/27/18 22:48 4.5 g/dL (2.4-3.5) H 11/27/18 22:48 0.7 (1.1-2.2) L 11/27/18 22:48 Turbid (Clear) A 11/27/18 18:24 Ur Specific [place] 1.026 (1.010-1.025) H 11/27/18 18:24 >=300 mg/dL (Neg-Trace) H 11/27/18 18:24 100 mg/dL (Normal) H 11/27/18 18:24 Large (Negative) H 11/27/18 18:24 Small (Negative) H 11/27/18 18:24 Ur Leukocyte Esterase Large (Negative) H 11/27/18 18:24 TNTC per hpf (0-3) H 11/27/18 18:24 TNTC per hpf (0-3) H 11/27/18 18:24 Ur Squamous Epith Cells Many per lpf (None-Few) H 11/27/18 18:24 Few per hpf (None Seen) H 11/27/18 18:24 Ur Culture Indicated? YES (NO) A 11/27/18 18:24 - Microbiology Findings Microbiology Findings: Microbiology, Last 48 Hours 11/27/18 18:24 Urine Culture - Preliminary Urine,[place] Culture is incubating. 11/27/18 15:55 Blood Culture - Preliminary Peripheral Venipuncture Culture is incubating and being continuously monitor ed for growth. Final report to follow. 11/27/18 15:55 Blood Culture - Preliminary Peripheral Venipuncture Culture is incubating and being continuously monitored for growth. Final report to follow. - Clinical Findings Intake & Output: Intake & Output 11/27/18 11/28/18 11/28/18 23:59 07:59 15:59 Intake Total 762.1 / 762.1 1394 / 1494 100 / 1494 Output Total 275 / 275 Balance 762.1 / 762.1 1394 / 1219 -175 / 1219 Weight 161.4 kg - Attending Attestation I examined this patient and my medical decision-making was reviewed with the Resident Physician. I agree with the documented findings, disposition and treatment plan as described except to the extent set forth below. Patient seen and examined. I was called by the hospitalist to follow-up and manage this patient from critical care due to his situation and status post cardiac arrest. Labs, radiology, chart personally reviewed. Agree with resident's history and physical, assessment, plan with following comments: STEEP TENDER: Patient doesn't follows commands, patient is on hypothermia protocol and will continue for total 24 hr and neurlogy is following up. Sedation for vent synchrony and change to Propofol Pulmonary: Acceptable oxygenation and ventilation and no plan for extubation and check with US for any pl effusion and possible thoracentesis that might help oxygenation and ventilation whenever his temperature is normal. Cardiovascular: s/p cardiac arrest and poor prognosis, mainly from STEEP TENDER standpoint and we have to wait until rewarming process started and hopefully he will have good neurological outcome. Cardiology to evaluate patient. GI: Nutrition per dietary and GI prophylaxis per routine Heme: DVT prophylaxis per routine ID: Continue antibiotics and plan to de-escalation and follow up cultures Renal; urine out put and renal function reviewed Endorcine: blood glucose is monitored Lines: all lines checked and no evidence of infections Skin: skin care to prevent pressure ulcers per nursing routine care Prognosis could be poor in this situation and family has been updated. I spent 50 min of Critical Care time with this patient. It involved decision making of high complexity to assess, manipulate, and support vital organ system failure and/or to prevent further life threatening deterioration of the patient's condition. The time involved in the performance of separately reportable procedures was not counted toward critical care time.
[2018-11-28] MEDS ORDERED: Perflutren Lipid Microsphere 1.3 ML in 0.9 % Sodium Chloride 8.7 ML IVP ONE (07:55)
[2018-11-28] MEDS: Chlorhexidine Rinse 15 ML MOUTHWASH MM SCH ×2 (08:18→20:07)
[2018-11-28] MEDS: Piperacillin/Tazobactam 3.375 GM in 0.9 % Sodium Chloride Mini Bag 100 ML IVPB SCH ×3 (08:19→23:11)
[2018-11-28] MEDS ORDERED: *HR* Dextrose 50 % in Water (Syg) 50 ML SYRINGE IVC ONE (08:29)
[2018-11-28] MEDS ORDERED: *HR* EPINEPHrine 1 MG/10 ML SYRINGE IVP ONE (08:29)
[2018-11-28] MEDS: Ketoconazole 2% CRM 15 GM TUBE TP SCH ×2 (09:10→20:26)
[2018-11-28 09:48] LABS: Estimated Average Glucose 143 mg/dl; Hemoglobin A1C 6.6 %
--- NOTE | 2018-11-28 09:57 | Neurology - Consult Note ---
Date of Encounter: 11/28/18 Time of Encounter: 13:03 Assessment and Plan (1) Anoxic brain injury Current Visit: Yes Status: Suspected Neuro consulted with concerns for anoxic brain injury 2/2 respiratory and cardiac arrest Patient presented with respiratory arrest and subsequently went into cardiac arrest Currently on hypothermic protocol for the next 24 hours Sedated with Versed and fentanyl Neuro exam is complicated by sedation however, corneal reflex and gag remain intact. There are no doll's eyes noted. His pupils are round and equal bilater ally but appear to be fixed. He appears to have some decorticate posturing of bilateral arms to noxious stimulus. PLAN Continue hypothermic protocol per [employer] hat [employer] team We will attempt to rewarm and repeat neuro imaging in the morning EEG-pending Repeat CT imaging in the morning Correct underlying metabolic abnormalities Treat cause of suspected sepsis; sepsis treatment per [employer] team Continue medical and supportive care Neuro will continue to follow History of Present Illness Chief complaint: Respiratory and cardiac arrest, concern for anoxic brain injury HPI: Patient is unresponsive. No family present at time of collection of history of present illness. All information obtained from chart review. Mr. Wright is a 68 year old male with a PMH of CHF, COPD, DM, HLD and HTN. He was at [facility]. It was reported that while attempting to transfer him from the bed to the hallway or lift he became unresponsive and went into respiratory arrest. While at the nursing facility received 1 round of CPR with ROSC achieved. The time of arrival to the ED the patient was bradycardic with continued respiratory failure and oxygen saturation in the 80s. While in the ED his rhythm became disorganized a pulse was lost resulting in 1 round of CPR;ROSC again achieved and subsequently the patient was intubated and sent to the ICU for further monitoring. Further workup revealed hyperkalemia with potassium of 7, and a repeat of 7.2. CXR shows diffuse airspace opacities in the right lung with lower two thirds left hemithorax suggestive of pulmonary edema versus pneumonia. Repeat labs this morning reveal hyponatremia with serum sodium of 128 and hyperkalemia with potassium of 6.3. It appears he may have had an AK I and urinalysis reveals a urinary tract infection. Neurology has been consulted with concerns for anoxic brain injury. At the time of my assessment this afternoon the patient is on sedation with mechanical ventilation which complicates neurological evaluation. Past Med Surg Social Fam HX - Past Medical History Medical history: CHF, COPD, diabetes, hyperlipidemia, hypertension Psychiatric history: depression - Past Surgical History Surgical History: pacemaker/AICD, other Additional surgical history: defibrilator - Social History Smoking Status: Former smoker Smokeless Tobacco Status: No Alcohol use: none Drug use: none - Family History Mother Living Status: Hx Family Cancer: Yes (brain tumor) Father Living Status: Hx Family Respiratory Disorders: Yes (COPD) Hx Family Endocrine Disorder: Yes (DM) Medications and Allergies Aspirin [Lo-Dose Aspirin EC] 81 mg PO DAILY 12/10/16 [History] Sertraline [Zoloft] 100 mg PO DAILY 12/10/16 [History] Lovastatin 10 mg PO HS 04/07/17 [History] Acetaminophen [Tylenol] 650 mg PO Q4HR PRN 10/04/17 [History] Carvedilol 12.5 mg PO BID 10/04/17 [History] Phenol [Chloraseptic] 1 spr MM Q2H PRN 10/04/17 [History] Fluticasone Propionate Nasal [Flonase] 2 spr NS DAILY 12/12/17 [History] Furosemide [Lasix] 40 mg PO DAILY 12/12/17 [History] Potassium Chloride [K-Tab ER] 20 meq PO DAILY 01/11/18 [History] Albuterol Sulfate [Albuterol Inhaler] 2 puff IH [id number] PRN inhaler 01/17/18 [Rx] Tiotropium [Spiriva] 18 mcg IH DAILYR inh 01/17/18 [Rx] Bisacodyl [Gentle Laxative] 10 mg RC DAILY PRN 11/13/18 [History] Diclofenac Sodium [Diclozor] 1 each TP BID PRN 11/13/18 [History] Gabapentin [Neurontin] 300 mg PO TID 11/13/18 [History] Guaifenesin [Diabetic Tussin Ex] 10 ml PO Q4H PRN 11/13/18 [History] Hyoscyamine SL [Levsin Sl] 0.125 mg SL Q2H PRN 11/13/18 [History] Insulin Regular, Human [Novolin R] 0 unit SQ QIDAC 11/13/18 [History] Ipratropium/Albuterol Sulfate [Iprat-Albut 0.5-3(2.5) mg/3 ml] 3 ml IH BID PRN 11/13/18 [History] Loperamide [Imodium] 2 mg PO Q4HR PRN MDD 8mg/24hr 11/13/18 [History] Ondansetron ODT [Zofran ODT] 4 mg SL Q6HR PRN 11/13/18 [History] Promethazine [Phenergan] 25 mg RC Q12H PRN 11/13/18 [History] Saline Nasal [place] [[place] Nasal [place]] 1 spray NS DAILY PRN 11/13/18 [History] Tamsulosin HCl [Flomax] 0.4 mg PO DAILY 11/13/18 [History] rOPINIRole [Requip] 0.25 mg PO HS 11/13/18 [History] Acetaminophen [Tylenol 650mg SUPP] 650 mg RC Q4H PRN 11/14/18 [History] Insulin NPH Human Isophane [Novolin N] 30 unit SQ HS 11/14/18 [History] Insulin NPH Human Isophane [Novolin N] 50 unit SQ QA 11/14/18 [History] Fluticasone/Umeclidin/Vilanter [Trelegy Ellipta 100-62.5-25] 1 each IH DAILY 11/27/18 [History] Lidocaine Patch [Lidoderm 5% patch] 1 each TP DAILY PRN 11/27/18 [History] Morphine Sulfate [Morphine Oral Solution] 0.25 ml PO Q4H PRN 11/27/18 [History] Tramadol HCl [Ultram] 50 mg PO Q4H PRN 11/27/18 [History] Trazodone HCl 100 mg PO HS 11/27/18 [History] Allergy/AdvReac Type Severity Reaction Status Date / Time No Known Drug Allergies Allergy See Verified 08/20/17 15:01 Comments ROS unobtainable: due to mental status All Systems: The remainder of the systems were reviewed and are negative Physical Examination - Vital Signs Vital Signs: Initial Vital Signs Temp Pulse Resp BP Pulse Ox 0 F L 0 0 221/143 100 11/27/18 15:20 11/27/18 15:20 11/27/18 15:20 11/27/18 15:20 11/27/18 15:20 - Exam Exam: Examination: Complicated neurological exam due to concerns for anoxic brain injury; patient also on sedation General Examination: *CONSTITUTIONAL: The patient is sedated and intubated *GENERAL APPEARANCE OF PATIENT ill appearing elderly male *EYES: pupils are round and equal bilaterally but do not respond to light *CARDIOVASCULAR bradycardic, no peripheral edema, dorsal pedis pulses intact Musculoskeletal: *GAIT AND STATION patient is sedated and intubated, not assessed *ASSESSMENT OF MUSCLE STRENGTH IN THE UPPER AND LOWER EXTREMITIES some decorticate posturing of bilateral arms noted to noxious stimulation *MUSCLE TONE IN THE UPPER AND LOWER EXTREMITIES Neurological: *ORIENTATION unresponsive *RECURRENT AND REMOTE MEMORY unresponsive *ATTENTION AND CONCENTRATION DOES not follow commands, no spontaneous eye opening, unresponsive *MENTAL attention span and concentration normal. *CN II optic fundi were normal, no papilledema noted. *CN III,IV, PUPILS ARE ROUND AND EQUAL BILATERALLY BUT DO NOT RESPOND TO LIGHT, NO NYSTAGMUS OR PTOSIS PRESENT, DOLL'S EYES INTACT NO NYSTAGMUS OR PTOSIS PRESENT, DOLL'S EYES INTACT *CN XII Gag noted *SENSORY EXAMINATION unable to assess *REFLEXES: DTRs were absent diffusely, no pathological reflexes were noted. Results - Laboratory Findings CBC and BMP: 11/27/18 15:25 11/28/18 Unknown Abnormal lab findings: Abnormal lab results RBC 3.71 M/mcL (4.19-5.50) L 11/27/18 15:25 Hgb 9.5 g/dL (12.9-16.9) L 11/27/18 15:25 Hct 31.3 % (37.5-50.1) L 11/27/18 15:25 MCH 25.6 pg (28.0-33.3) L 11/27/18 15:25 MCHC 30.4 g/dL (31.6-35.5) L 11/27/18 15:25 RDW 16.5 % (11.5-14.5) H 11/27/18 15:25 PT 13.2 Seconds (9.4-12.1) H 11/27/18 15:25 601 mg/dL (169-393) H 11/27/18 22:48 ABG pH 7.29 pH Units (7.32-7.45) L 11/28/18 01:04 ABG pCO2 48 mmHg (35-45) H 11/27/18 23:31 ABG pO2 80 mmHg (85-104) L 11/28/18 05:10 ABG O2 Saturation 90 % (95-98) L 11/28/18 01:04 ABG Base Excess -3 mEq/L (-2 to 3) L 11/28/18 05:10 Sodium 128 mEq/L (136-145) L 11/28/18 Unknown Potassium 6.3 mEq/L (3.5-5.1) H 11/28/18 Unknown Chloride 97 mEq/L (98-107) L 11/27/18 15:25 Carbon Dioxide 21 mEq/L (23-29) L 11/28/18 Unknown BUN 54 mg/dL (8-23) H 11/28/18 Unknown 2.37 mg/dL (0.70-1.30) H 11/28/18 Unknown Est GFR ( Amer) 33 (> 60) L 11/28/18 Unknown Est GFR (Non-Af Amer) 28 (> 60) L 11/28/18 Unknown Glucose 65 mg/dL (70-105) L 11/27/18 22:48 POC Glucose 133 mg/dL (70-99) H 11/28/18 09:02 279 (280-300) L 11/27/18 22:48 Lactic Acid 0.4 mmol/L (0.5-2.2) L 11/28/18 Unknown Calcium 7.6 mg/dL (8.6-10.3) L 11/28/18 Unknown Phosphorus 6.5 mg/dL (2.7-4.5) H 11/27/18 22:48 Magnesium 2.7 mg/dL (1.6-2.6) H 11/27/18 22:48 0.04 ng/mL (< 0.04) H* 11/28/18 Unknown 3.0 g/dL (3.5-5.7) L 11/27/18 22:48 4.5 g/dL (2.4-3.5) H 11/27/18 22:48 0.7 (1.1-2.2) L 11/27/18 22:48 Turbid (Clear) A 11/27/18 18:24 Ur Specific [place] 1.026 (1.010-1.025) H 11/27/18 18:24 >=300 mg/dL (Neg-Trace) H 11/27/18 18:24 100 mg/dL (Normal) H 11/27/18 18:24 Large (Negative) H 11/27/18 18:24 Small (Negative) H 11/27/18 18:24 Ur Leukocyte Esterase Large (Negative) H 11/27/18 18:24 TNTC per hpf (0-3) H 11/27/18 18:24 TNTC per hpf (0-3) H 11/27/18 18:24 Ur Squamous Epith Cells Many per lpf (None-Few) H 11/27/18 18:24 Few per hpf (None Seen) H 11/27/18 18:24 Ur Culture Indicated? YES (NO) A 11/27/18 18:24 - Diagnostic Findings Additional findings: CT/CT head/brain wo con IMPRESSION: No acute intracranial abnormality. Consult Discharge Plan - Plan Referrals: Ander Blankenship MD [Primary Care Provider] -
[2018-11-28] MEDS: Pantoprazole 40 MG VIAL IVP SCH (11:18)
--- NOTE | 2018-11-28 13:44 | Cardiology Consult Note ---
<Arturo Dockery R - Last Filed: 11/28/18 14:33> Date of Encounter: 11/28/18 Time of Encounter: 13:39 Assessment and Plan (1) Respiratory arrest before cardiac arrest Current Visit: Yes Status: Acute Unconscious when EMS arrived at [facility], bradycardic with O2 in 80's. Per ED report, patient had a pulse and detectable rhythm on arrival, then coded. ROSC was achieved after 1 round CPR and 1 dose epinephrine. Found to be hyperkalemic (7, then 7.2). K 6.3 this AM. Management per primary team. Troponin 0.04 x 3. TTE completed--LVEF 50%. Mild segmental left ventricular systolic dysfunction. Moderate with mild-moderate AR. ECG after arrival appears to be accelerated idioventricular, then repeat ECG improved and comparable to prior (inferior infarct). ICD interrogated (Hx NICMP) --met JJ 02/2018. Last NSVT noted was 11/15, but unclear if device is still sensing or able to deliver therapies. Will discuss and review with Dr. Iverson to determine if any further testing is warranted pending clinical course. Currently not a candidate for invasive evaluation given anoxic brain injury, JENN, hyperkalemia. (2) Elevated troponin Current Visit: No Status: Acute Troponin 0.04, 0.04, 0.04--borderline in setting of arrest, JENN, hyperkalemia and PNA vs pulmonary edema with Complete opacification of the left hemithorax on CXR. Demand ischemia, nondiagnostic for ACS. Cardiac rehab not warranted. Discussion w patient/family: The assessment and plan as outlined above was discussed with the patient and/or family members who expressed understanding and agreement. All questions were answered. Thank you for involving us in the care of your patient. Please call with any questions. I will discuss all the above with Dr. Iverson and make changes as necessary. History of Present Illness Consult date: 11/28/18 Consult reason: s/p arrest Chief complaint: s/p arrest History of present illness: Mr. Wright is a 68 year old male with PMH of dilated/NICMP s/p ICD placement, COPD, HTN, HLD, DM, recurrent UTI transferred to ED by EMS from [facility]. EMS had been called to [facility] for difficulty breathing. Patient was reportedly unconscious when EMS arrived, reportedly patient was bradycardic (HR 40's) with oxygen saturation in 80's. Per ED report, patient had a pulse and detectable rhythm on arrival, but rhythm became disorganized and palpable pulse was lost. ROSC was achieved after 1 round CPR and 1 dose epinephrine, he was intubated in the ED. Found to be hyperkalemic (7, then 7.2) for which he received calcium gluconate, insulin, D50, and Kayexalate. CXR showed diffuse airspace opacities of right lung and lower 2/3 left hemithorax suggestive of pulmonary edema vs PNA; he received Bumex for possibility of fluid overload. Purulent drainage was reported to be coming from patient's penis. He received empiric rocephin, vancomycin, and zosyn in the ED for possibility of sepsis. Pt is sedated and intubated. All info obtained from chart. Troponin 0.04 x 3. TTE completed--LVEF 50%. Mild segmental left ventricular systolic dysfunction. Mildly dilated LV with mild cLVH. Mild LVDD. Mildly dilated RV with mild RV hypokinesis. Mild biatrial enlargement. Moderate with mild-moderate AR. Mild MR. Mild TR. Moderate phtn. Past Med Surg Social Fam HX - Past Medical History Medical history: cardiomyopathy, CHF, COPD, diabetes, hyperlipidemia, hypertension Psychiatric history: depression - Past Surgical History Surgical History: pacemaker/AICD, other Additional surgical history: defibrilator - Social History Smoking Status: Former smoker Smokeless Tobacco Status: No Alcohol use: none Drug use: none - Family History Mother Living Status: Hx Family Cancer: Yes (brain tumor) Father Living Status: Hx Family Respiratory Disorders: Yes (COPD) Hx Family Endocrine Disorder: Yes (DM) Medications and Allergies Aspirin [Lo-Dose Aspirin EC] 81 mg PO DAILY 12/10/16 [History] Sertraline [Zoloft] 100 mg PO DAILY 12/10/16 [History] Lovastatin 10 mg PO HS 04/07/17 [History] Acetaminophen [Tylenol] 650 mg PO Q4HR PRN 10/04/17 [History] Carvedilol 12.5 mg PO BID 10/04/17 [History] Phenol [Chloraseptic] 1 spr MM Q2H PRN 10/04/17 [History] Fluticasone Propionate Nasal [Flonase] 2 spr NS DAILY 12/12/17 [History] Furosemide [Lasix] 40 mg PO DAILY 12/12/17 [History] Potassium Chloride [K-Tab ER] 20 meq PO DAILY 01/11/18 [History] Albuterol Sulfate [Albuterol Inhaler] 2 puff IH [id number] PRN inhaler 01/17/18 [Rx] Tiotropium [Spiriva] 18 mcg IH DAILYR inh 01/17/18 [Rx] Bisacodyl [Gentle Laxative] 10 mg RC DAILY PRN 11/13/18 [History] Diclofenac Sodium [Diclozor] 1 each TP BID PRN 11/13/18 [History] Gabapentin [Neurontin] 300 mg PO TID 11/13/18 [History] Guaifenesin [Diabetic Tussin Ex] 10 ml PO Q4H PRN 11/13/18 [History] Hyoscyamine SL [Levsin Sl] 0.125 mg SL Q2H PRN 11/13/18 [History] Insulin Regular, Human [Novolin R] 0 unit SQ QIDAC 11/13/18 [History] Ipratropium/Albuterol Sulfate [Iprat-Albut 0.5-3(2.5) mg/3 ml] 3 ml IH BID PRN 11/13/18 [History] Loperamide [Imodium] 2 mg PO Q4HR PRN MDD 8mg/24hr 11/13/18 [History] Ondansetron ODT [Zofran ODT] 4 mg SL Q6HR PRN 11/13/18 [History] Promethazine [Phenergan] 25 mg RC Q12H PRN 11/13/18 [History] Saline Nasal [place] [[place] Nasal [place]] 1 spray NS DAILY PRN 11/13/18 [History] Tamsulosin HCl [Flomax] 0.4 mg PO DAILY 11/13/18 [History] rOPINIRole [Requip] 0.25 mg PO HS 11/13/18 [History] Acetaminophen [Tylenol 650mg SUPP] 650 mg RC Q4H PRN 11/14/18 [History] Insulin NPH Human Isophane [Novolin N] 30 unit SQ HS 11/14/18 [History] Insulin NPH Human Isophane [Novolin N] 50 unit SQ QAM 11/14/18 [History] Fluticasone/Umeclidin/Vilanter [Trelegy Ellipta 100-62.5-25] 1 each IH DAILY 11/27/18 [History] Lidocaine Patch [Lidoderm 5% patch] 1 each TP DAILY PRN 11/27/18 [History] Morphine Sulfate [Morphine Oral Solution] 0.25 ml PO Q4H PRN 11/27/18 [History] Tramadol HCl [Ultram] 50 mg PO Q4H PRN 11/27/18 [History] Trazodone HCl 100 mg PO HS 11/27/18 [History] Allergy/AdvReac Type Severity Reaction Status Date / Time No Known Drug Allergies Allergy See Verified 08/20/17 15:01 Comments ROS unobtainable: due to endotracheal tube All Systems Review: The remainder of the systems were reviewed and are negative Physical Examination Vital Signs, Last 4 Hours Temp Pulse Resp BP Pulse Ox 11/28/18 13:00 58 21 103/67 95 11/28/18 12:00 58 21 132/71 95 11/28/18 11:31 50 11/28/18 11:00 94.6 F L 50 20 122/72 95 11/28/18 10:00 56 20 124/65 95 Vital Signs Temp Pulse Resp BP Pulse Ox Pulse Ox 11/28/18 13:00 58 21 103/67 95 11/28/18 12:00 58 21 132/71 95 11/28/18 11:31 50 11/28/18 11:00 94.6 F L 50 20 122/72 95 11/28/18 10:00 56 20 124/65 95 11/28/18 09:00 95.2 F L 56 20 113/67 95 11/28/18 08:00 95.2 F L 56 20 120/64 94 11/28/18 07:27 54 11/28/18 07:00 95.2 F L 54 20 107/65 95 11/28/18 06:00 95 F L 54 20 109/57 96 11/28/18 05:40 20 105/57 95 11/28/18 05:00 95 F L 52 20 109/60 96 11/28/18 04:00 95.1 F L 52 21 92/53 97 11/28/18 03:28 20 91/52 98 11/28/18 03:00 95.1 F L 54 21 91/52 99 11/28/18 02:00 93.9 F L 53 20 101/57 100 11/28/18 01:23 20 110/63 91 11/28/18 01:21 52 11/28/18 01:00 92.8 F L 51 20 105/61 91 11/28/18 00:00 93.0 F L 45 18 112/67 95 11/27/18 23:53 18 105/57 95 11/27/18 23:45 93.3 F L 48 19 105/57 94 11/27/18 23:30 93.1 F L 48 19 105/64 95 11/27/18 23:15 93.7 F L 50 15 100 11/27/18 23:00 94.2 F L 57 15 115/65 100 11/27/18 22:45 94.2 F L 60 18 121/76 100 11/27/18 22:30 94.8 F L 58 18 115/63 99 11/27/18 22:15 95.1 F L 59 18 112/62 97 11/27/18 22:00 95.3 F L 69 18 94/81 98 11/27/18 21:45 95.3 F L 61 15 117/62 99 11/27/18 21:30 95.5 F L 57 18 108/68 100 11/27/18 21:21 60 05 21:15 95.9 F L 58 16 115/67 99 11/27/18 21:00 95.5 F L 56 18 108/68 100 11/27/18 20:05 17 100 11/27/18 19:49 64 14 131/70 100 05 19:37 63 14 131/67 100 11/27/18 19:24 63 14 129/69 100 05 19:06 97.4 F L 68 18 114/61 100 0505 18:34 62 114/61 100 11/27/18 18:18 61 16 108/60 100 11/27/18 18:12 62 114/59 100 11/27/18 17:15 99 0505 17:14 68 123/72 100 0505 16:58 69 103/50 100 11/27/18 16:52 67 28 101/52 100 11/27/18 15:39 76 20 105/67 92 11/27/18 15:32 88 18 138/91 97 11/27/18 15:30 100 11/27/18 15:28 20 100 11/27/18 15:20 0 F L 0 0 221/143 100 Intake and Output 11/27/18 11/28/18 11/28/18 23:59 07:59 15:59 Intake Total 762.1 / 762.1 1394 / 2594 1200 / 2594 Output Total 425 / 425 Balance 762.1 / 762.1 1394 / 2169 775 / 2169 Intake: IV Fluids 762.1 / 762.1 1394 / 2594 1200 / 2594 HumuLIN R 10 UNIT In Normal 10.1 / 10.1 Saline Flush 10 ML @ 1212 mls/ hr IV ONCE ONE Rx#:[id number] D5% And 0.9% Nacl 1000 Ml 1,000 1000 / 2000 1000 / 2000 ML @ 150 mls/hr IVC .Q6H40M [facility] Rx#:[id number] FentaNYL (PF) 1,000 MCG In 0.9 12.0 / 12.0 144 / 144 % Sodium Chloride 80 ML @ 50 MCG/HR 5 mls/hr IVC CONT [facility] Rx #:[id number] Versed 50 MG In 0.9 % Sodium 100.0 / 100.0 100 / 100 Chloride 90 ML @ 2 MG/HR 4 mls/ hr IVC CONT [facility] Rx#:[id number] Rocephin 2,000 MG In Water for 20 / 20 inj. (sterile) 20 ML @ 600 mls/ hr IVP Q24H [facility] Rx#:[id number] Calcium Gluconate 2,000 MG In 0 120 / 120 .9 % Sodium Chloride 100 ML @ 240 mls/hr IVPB ONCE ONE Rx#: [id number] Levaquin Premix 750mg/150 mL 150 / 150 750 mg In 150 ml @ 100 mls/hr IVPB Q24H [facility] Rx#:[id number] Zosyn 3.375 GM In 0.9 % Sodium 100 / 200 100 / 200 Chloride (Mini-Bag +) 100 ML @ 25 mls/hr IVPB Q8HR [facility] Rx#: [id number] Vancocin 2,000 MG In 0.9 % 500 / 500 Sodium Chloride 500 ML @ 250 mls/hr IVPB ONCE ONE Rx#: [id number] Oral 0 / 0 0 / 0 0 / 0 Output: Catheter 425 / 425 Other: Meal NPo Weight 161.4 kg Patient Weight 11/28/18 23:59 Weight 161.4 kg General: Other (intubated, sedated) HEENT: Atraumatic, Normocephaly, Mucus Membranes Moist Neck: Normal carotid pulses Cardiac: Other (2/6 murmur) Lungs: Other (diminished) Neuro: Other (sedated) Abdomen: Soft, Non-Tender Skin: No rashes noted on visualized skin Musculoskeletal: No Chest Wall Tenderness Extremities: No Clubbing, No Cyanosis, No Edema, Normal Pulses Results 11/27/18 15:25 11/28/18 Unknown Lab Results 11/27/18 11/27/18 11/27/18 15:25 15:25 15:25 WBC 8.4 Hgb 9.5 L Hct 31.3 L Plt Count 264 INR 1.2 APTT 34.5 Sodium 128 L Potassium 7.0 H* Chloride 97 L Carbon Dioxide 20 L BUN 51 H Creatinine 2.25 H Glucose 144 H Calcium 7.7 L Magnesium 2.6 Total Bilirubin 0.4 AST 15 ALT 11 Alkaline Phosphatase 71 Troponin I < 0.03 11/27/18 11/27/18 11/27/18 16:36 17:39 19:32 WBC Hgb Hct Plt Count INR APTT Sodium Potassium 7.2 H* 6.9 H* 6.9 H* Chloride Carbon Dioxide BUN Creatinine Glucose Calcium Magnesium Total Bilirubin AST ALT Alkaline Phosphatase Troponin I 11/27/18 11/27/18 11/28/18 22:48 22:48 05:52 WBC Hgb Hct Plt Count INR APTT Sodium 128 L Potassium 6.6 H* Chloride 101 Carbon Dioxide 23 BUN 54 H Creatinine 2.53 H Glucose 65 L Calcium 8.4 L Magnesium 2.7 H Total Bilirubin 0.3 AST 14 ALT 11 Alkaline Phosphatase 69 Troponin I 0.04 H* 0.04 H* 11/28/18 Unknown WBC Hgb Hct Plt Count INR APTT Sodium 128 L Potassium 6.3 H Chloride 101 Carbon Dioxide 21 L BUN 54 H Creatinine 2.37 H Glucose 89 Calcium 7.6 L Magnesium Total Bilirubin AST ALT Alkaline Phosphatase Troponin I 0.04 H* - Imaging and Cardiology Echo: report reviewed - EKG Interpretation EKG results cardiology: personally reviewed Consult Discharge Plan - Plan Referrals: Ander Blankenship MD [Primary Care Provider] - <Felisha Iverson - Last Filed: 11/28/18 15:59> Date of Encounter: 11/28/18 - Attending Attestation I examined this patient and my medical decision-making was reviewed with the OPERATIONS ASSISTANT. I agree with the documented findings, disposition and treatment plan as described. Assessment and Plan Discussion w patient/family: The assessment and plan as outlined above was discussed with the patient and/or family members who expressed understanding and agreement. All questions were answered. Thank you for involving us in the care of your patient. Please call with any questions. History of Present Illness History of present illness: Mr. Wright is a 68 year old male All Systems Review: The remainder of the systems were reviewed and are negative Physical Examination Vital Signs, Last 4 Hours Temp Pulse Resp BP Pulse Ox 11/28/18 15:13 66 11/28/18 15:00 95.3 F L 66 23 116/53 94 11/28/18 14:00 54 22 110/55 94 11/28/18 13:00 58 21 103/67 95 11/28/18 12:00 58 21 132/71 95 Results 11/27/18 15:25 11/28/18 Unknown Lab Results 11/27/18 11/27/18 11/27/18 15:25 15:25 15:25 WBC 8.4 Hgb 9.5 L Hct 31.3 L Plt Count 264 INR 1.2 APTT 34.5 Sodium 128 L Potassium 7.0 H* Chloride 97 L Carbon Dioxide 20 L BUN 51 H Creatinine 2.25 H Glucose 144 H Calcium 7.7 L Magnesium 2.6 Total Bilirubin 0.4 AST 15 ALT 11 Alkaline Phosphatase 71 Troponin I < 0.03 11/27/18 11/27/18 11/27/18 16:36 17:39 19:32 WBC Hgb Hct Plt Count INR APTT Sodium Potassium 7.2 H* 6.9 H* 6.9 H* Chloride Carbon Dioxide BUN Creatinine Glucose Calcium Magnesium Total Bilirubin AST ALT Alkaline Phosphatase Troponin I 11/27/18 11/27/18 11/28/18 22:48 22:48 05:52 WBC Hgb Hct Plt Count INR APTT Sodium 128 L Potassium 6.6 H* Chloride 101 Carbon Dioxide 23 BUN 54 H Creatinine 2.53 H Glucose 65 L Calcium 8.4 L Magnesium 2.7 H Total Bilirubin 0.3 AST 14 ALT 11 Alkaline Phosphatase 69 Troponin I 0.04 H* 0.04 H* 11/28/18 Unknown WBC Hgb Hct Plt Count INR APTT Sodium 128 L Potassium 6.3 H Chloride 101 Carbon Dioxide 21 L BUN 54 H Creatinine 2.37 H Glucose 89 Calcium 7.6 L Magnesium Total Bilirubin AST ALT Alkaline Phosphatase Troponin I 0.04 H*
--- NOTE | 2018-11-28 18:00 | Electrocardiograph Report ---
[address] [place], [place] [address] Test Date: 2018-11-27 Pat Name: Angel Wright Department: [id number] Room: 10 Gender: M Legal Records Manager: : [id number] Requested By: Mamta Shin Order Number: [id number] Reading MD: Felisha Iverson Measurements Intervals [place] Rate: 114 P: 13 MO: 149 QRS: -81 QRSD: 143 T: 85 QT: 355 QTc: 489 Interpretive Statements Sinus tachycardia Nonspecific IVCD with LAD Inferior infarct, age indeterminate Anterior infarct, old Electronically Signed On 11-28-2018 17:59:03 EDT by Felisha Iverson
--- NOTE | 2018-11-28 18:21 | Nephrology Consult Note ---
Date of Encounter: 11/28/18 Time of Encounter: 12:00 Assessment and Plan (1) JENN (acute kidney injury) Current Visit: Yes Status: Acute Elevated SCr in the setting of likely sepsis No acute indication for INTERNAL COMM[employer]ICATIONS INTERN at this time since potassium responding to medical management Avoid nephrotoxins if possible Will need to establish goals of care with family if any worsening (2) Hyperkalemia Current Visit: Yes Status: Acute Potassium down to 6.5, will dose with kayexalate and repeat labs in 4 hrs if BM (3) Cardiac arrest with successful resuscitation Current Visit: Yes Status: Acute per primary and cardiology (4) Respiratory arrest before cardiac arrest Current Visit: Yes Status: Acute per primary (5) Sepsis Current Visit: Yes Status: Suspected per primary Qualifiers: Sepsis type: sepsis due to unspecified organism Qualified Code(s): A41.9 - Sepsis, unspecified organism History of Present Illness - Reason for Consult Consult date: 11/28/18 Acute Kidney Injury, hyperkalemia Requesting physician: Vishnu Gonzales - History of Present Illness 68 y o male with PMH of DM, HTN, COPD, CHF s/p AICD, recurrent pseudomonal UTIs and stage 3 CKD at baseline sent from [facility] with SOB becoming unstable in the ED requiring CPR and intubation. Potassium noted as high as 7.2 treated medically. Renal consulted fro hyperkalemia and JENN with SCr peaking at 2.53, was 1.28 last month. No family present at bedside with most of the information obtained from records and primary team. Pt is currently on the hypothermia protocol for the next 24hrs Past Med Surg Social Fam HX - Past Medical History Medical history: cardiomyopathy, CHF, COPD, diabetes, hyperlipidemia, hypertension Psychiatric history: depression - Past Surgical History Surgical History: pacemaker/AICD, other Additional surgical history: defibrilator - Social History Smoking Status: Former smoker Smokeless Tobacco Status: No Alcohol use: none Drug use: none - Family History Mother Living Status: Hx Family Cancer: Yes (brain tumor) Father Living Status: Hx Family Respiratory Disorders: Yes (COPD) Hx Family Endocrine Disorder: Yes (DM) Medications and Allergies Aspirin [Lo-Dose Aspirin EC] 81 mg PO DAILY 12/10/16 [History] Sertraline [Zoloft] 100 mg PO DAILY 12/10/16 [History] Lovastatin 10 mg PO HS 04/07/17 [History] Acetaminophen [Tylenol] 650 mg PO Q4HR PRN 10/04/17 [History] Carvedilol 12.5 mg PO BID 10/04/17 [History] Phenol [Chloraseptic] 1 spr MM Q2H PRN 10/04/17 [History] Fluticasone Propionate Nasal [Flonase] 2 spr NS DAILY 12/12/17 [History] Furosemide [Lasix] 40 mg PO DAILY 12/12/17 [History] Potassium Chloride [K-Tab ER] 20 meq PO DAILY 01/11/18 [History] Albuterol Sulfate [Albuterol Inhaler] 2 puff IH [id number] PRN inhaler 01/17/18 [Rx] Tiotropium [Spiriva] 18 mcg IH DAILYR inh 01/17/18 [Rx] Bisacodyl [Gentle Laxative] 10 mg RC DAILY PRN 11/13/18 [History] Diclofenac Sodium [Diclozor] 1 each TP BID PRN 11/13/18 [History] Gabapentin [Neurontin] 300 mg PO TID 11/13/18 [History] Guaifenesin [Diabetic Tussin Ex] 10 ml PO Q4H PRN 11/13/18 [History] Hyoscyamine SL [Levsin Sl] 0.125 mg SL Q2H PRN 11/13/18 [History] Insulin Regular, Human [Novolin R] 0 unit SQ QIDAC 11/13/18 [History] Ipratropium/Albuterol Sulfate [Iprat-Albut 0.5-3(2.5) mg/3 ml] 3 ml IH BID PRN 11/13/18 [History] Loperamide [Imodium] 2 mg PO Q4HR PRN MDD 8mg/24hr 11/13/18 [History] Ondansetron ODT [Zofran ODT] 4 mg SL Q6HR PRN 11/13/18 [History] Promethazine [Phenergan] 25 mg RC Q12H PRN 11/13/18 [History] Saline Nasal [place] [[place] Nasal [place]] 1 spray NS DAILY PRN 11/13/18 [History] Tamsulosin HCl [Flomax] 0.4 mg PO DAILY 11/13/18 [History] rOPINIRole [Requip] 0.25 mg PO HS 11/13/18 [History] Acetaminophen [Tylenol 650mg SUPP] 650 mg RC Q4H PRN 11/14/18 [History] Insulin NPH Human Isophane [Novolin N] 30 unit SQ HS 11/14/18 [History] Insulin NPH Human Isophane [Novolin N] 50 unit SQ QAM 11/14/18 [History] Fluticasone/Umeclidin/Vilanter [Trelegy Ellipta 100-62.5-25] 1 each IH DAILY 11/27/18 [History] Lidocaine Patch [Lidoderm 5% patch] 1 each TP DAILY PRN 11/27/18 [History] Morphine Sulfate [Morphine Oral Solution] 0.25 ml PO Q4H PRN 11/27/18 [History] Tramadol HCl [Ultram] 50 mg PO Q4H PRN 11/27/18 [History] Trazodone HCl 100 mg PO HS 11/27/18 [History] Allergy/AdvReac Type Severity Reaction Status Date / Time No Known Drug Allergies Allergy See Verified 08/20/17 15:01 Comments Review of Systems ROS unobtainable: due to endotracheal tube Exam - Vital Signs Vital signs: Initial Vital Signs Temp Pulse Resp BP Pulse Ox 0 F L 0 0 221/143 100 11/27/18 15:20 11/27/18 15:20 11/27/18 15:20 11/27/18 15:20 11/27/18 15:20 Vital Signs - Last 8 Hours Temp Pulse Resp BP Pulse Ox 11/28/18 18:00 54 21 117/58 97 11/28/18 17:00 65 23 111/59 94 11/28/18 16:00 66 23 111/63 94 11/28/18 15:13 66 11/28/18 15:00 95.3 F L 66 23 116/53 94 11/28/18 14:00 54 22 110/55 94 11/28/18 13:00 58 21 103/67 95 11/28/18 12:00 58 21 132/71 95 11/28/18 11:35 21 122/72 96 11/28/18 11:31 50 11/28/18 11:00 94.6 F L 50 20 122/72 95 Intake and Output 11/28/18 11/28/18 11/28/18 07:59 15:59 23:59 Intake Total 1394 / 2717 1279 / 2717 44 / 2717 Output Total 425 / 575 150 / 575 Balance 1394 / 2142 854 / 2142 -106 / 2142 Intake: IV Fluids 1394 / 2717 1279 / 2717 44 / 2717 D5% And 0.9% Nacl 1000 Ml 1,000 1000 / 2000 1000 / 2000 ML @ 150 mls/hr IVC .[id number] [facility] Rx#:[id number] FentaNYL (PF) 1,000 MCG In 0.9 144 / 213 44 / 213 25 / 213 % Sodium Chloride 80 ML @ 50 MCG/HR 5 mls/hr IVC CONT [facility] Rx #:[id number] Versed 50 MG In 0.9 % Sodium 135 / 135 Chloride 90 ML @ 2 MG/HR 4 mls/ hr IVC CONT [facility] Rx#:[id number] Diprivan 1,000 mg In 100 ml @ 5 19 / 19 MCG/KG/MIN 4.842 mls/hr IVC . [id number] [facility] Rx#:[id number] Levaquin Premix 750mg/150 mL 150 / 150 750 mg In 150 ml @ 100 mls/hr IVPB Q24H [facility] Rx#:[id number] Zosyn 3.375 GM In 0.9 % Sodium 100 / 200 100 / 200 Chloride (Mini-Bag +) 100 ML @ 25 mls/hr IVPB Q8HR [facility] Rx#: [id number] Oral 0 / 0 0 / 0 0 / 0 Output: Catheter 425 / 575 150 / 575 Other: Stool Size Moderate Stool Consistency soft Stool Color Brown # Bowel Movements 1 Weight 161.4 kg Patient Weight 11/28/18 23:59 Weight 161.4 kg - General Appearance General appearance: sedated on ventilator, intubated EENT: ATNC, mucous membranes moist Neck: no JVD, supple Respiratory: course breath sounds Cardiology: no edema, normal S1, normal S2 Gastrointestinal: no tenderness, no guarding Integumentary: warm and dry Additional Comments: sedated Musculoskeletal: no deformities Additional Comments: Sedated Results - Lab Results 11/30/18 03:30 11/30/18 03:30 Consult Discharge Plan - Plan Referrals: Ander Blankenship MD [Primary Care Provider] -
--- NOTE | 2018-11-28 18:44 | EEG/EMG/Oth Biometrics Report ---
EEG Procedure Report Date of procedure: 11/28/18 EEG Procedure: Routine EEG Procedure Note: This is a report of a 21 channel bipolar and referential montage EEG. There is no evidence of a posterior dominant alpha rhythm identified at any time during the recording. Cortical activity is very minimal with occasional or delta frequency waves being identified. There is no sleep architecture identified during the recording. Hyperventilation is not performed as the patient is intubated. Photic stimulations performed and does not produce a driving response. EKG rhythm strip reveals sinus bradycardia at 54 bpm. Impressions: This EEG recording is abnormal and is consistent with a severe gen eralized encephalopathy. Etiologies to consider would include toxic, metabolic, postictal, anoxic, and medication effect. 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 Please correlate clinically.
[2018-11-28] MEDS: Norepinephrine 4 MG in D5% in Water 250 ML IVC SCH (19:21)
[2018-11-28] MEDS ORDERED: Levofloxacin 750 MG/150 ML 750 MG/150 ML BAG IVPB SCH (21:00)
[2018-11-29] MEDS: Insulin LISPRO 300 UNITS/3 ML VIAL SQ SCH ×5 (00:01→23:30)
[2018-11-29] MEDS: D5% in 0.9% NACL 1,000 ML IVC SCH ×2 (02:10→08:49)
[2018-11-29] MEDS: Hydrocortisone Sodium Succ 100 MG/2 ML VIAL IVP SCH ×3 (03:43→20:31)
[2018-11-29] MEDS: Artificial Tears SOLN 15 ML BOTTLE BOTH EYES SCH ×6 (03:43→23:30)
[2018-11-29 04:05] LABS: Basophils % 0.3 %; Hematocrit 25.8 % (37.5-50.1); Immature Granulocytes % 0.8 % (0-4); Lymphocytes # 0.9 K/mcL (0.6-4.6); Lymphocytes % 14.5 %; Mean Corpuscular HGB Conc 30.6 g/dL (31.6-35.5); Mean Corpuscular Hemoglobin 25.8 pg (28.0-33.3); Mean Corpuscular Volume 84.3 fL (83.0-100.0); Monocytes # 0.4 K/mcL (0.0-1.3); Monocytes % 6.5 %; Neutrophils # 4.8 K/mcL (1.6-8.9); Platelet Count 203 K/mcL (140-400); Red Blood Count 3.06 M/mcL (4.19-5.50); Red Cell Distribution Width 16.7 % (11.5-14.5); Segmented Neutrophils % 77.9 %
[2018-11-29 04:06] LABS: Hemoglobin 7.9 g/dL (12.9-16.9)
[2018-11-29 04:26] LABS: Calcium 7.8 mg/dL (8.6-10.3); Magnesium 2.4 mg/dL (1.6-2.6); Potassium 5.1 mEq/L (3.5-5.1)
[2018-11-29] MEDS: *HR* Heparin 5,000 UNIT/ML VIAL SQ SCH ×3 (05:04→20:31)
[2018-11-29 05:29] LABS: ABG Base Excess -5 mEq/L (-2 to 3); ABG HCO3 22 mEq/L (21-27); ABG Oxygen Saturation 96 % (95-98); ABG PCO2 43 mmHg (35-45); ABG PH 7.31 pH Units (7.32-7.45); ABG PO2 87 mmHg (85-104); ABG TCO2 23 mEq/L (20-26); Blood Gas Modality ASSIST CONTROL; Blood Gas PEEP 5 cm H2O; Blood Gas Respiration Rate 20; Blood Gas VT 600 cc
[2018-11-29] MEDS ORDERED: Dexmedetomidine HCl 400 MCG/100 ML MLS IVC ONE (06:19)
[2018-11-29] MEDS: Dexmedetomidine HCl 400 MCG/100 ML MLS IVC SCH ×2 (06:23→17:22)
--- NOTE | 2018-11-29 07:18 | Neurology Progress Note ---
Date of Encounter: 11/29/18 Time of Encounter: 07:15 Assessment and Plan (1) Anoxic brain injury Current Visit: Yes Status: Suspected Patient's clinical status has significantly improved overnight. Perhaps as a result of the rewarming protocol, as well as lightening of sedation. Also suspect some improvement of metabolic events leading to the cerebral hypoxia. I will continue to follow. Long-term prognostication will be better made when the patient is extubated and we can assess speech and language and other higher cortical functions. Subjective Interval history: Chart was reviewed, the patient was seen and examined. Case was discussed with nursing. Patient has made drastic improvements overnight. He began improving with the rewarming protocol, as well as with lightning his sedation. Patient is now making eye contact, following commands and trying to talk while on the ventilator. This is a drastic improvement and significantly changes his outlook from a neurologic perspective. The EEG changes and his previous clinical status were likely due to sedation protocol along with hypothermia along with metabolic disturbances some of which may have been due to cerebral hypoxia. Objective - Constitutional Vitals: Temp Pulse Resp BP Pulse Ox 97.1 F L 64 18 123/67 96 11/29/18 03:42 11/29/18 06:00 11/29/18 06:30 11/29/18 06:30 11/29/18 06:30 Exam: Exam: Examination: Complicated neurological exam due to concerns for anoxic brain injury; patient also on sedation General Examination: *CONSTITUTIONAL: The patient is intubated however is now awake *GENERAL APPEARANCE OF PATIENT ill appearing elderly male *EYES: pupils are round and equal bilaterally but do not respond to light *CARDIOVASCULAR bradycardic, no peripheral edema, dorsal pedis pulses intact Musculoskeletal: *GAIT AND STATION patient is sedated and intubated, not assessed *ASSESSMENT OF MUSCLE STRENGTH IN THE UPPER AND LOWER EXTREMITIES patient is now moving all 4 extremities freely. No posturing is present. No involuntary movements are present. *MUSCLE TONE IN THE UPPER AND LOWER EXTREMITIES normal tone is present thr oughout Neurological: *ORIENTATION difficult to ascertain as the patient is intubated *RECURRENT AND REMOTE MEMORY unable to assess *ATTENTION AND CONCENTRATION patient is now making eye contact, not head yes or no to answer questions, following commands. Patient even tried to talk on the ventilator *CN II optic fundi were normal, no papilledema noted. *CN III,IV, PUPILS ARE ROUND AND EQUAL BILATERALLY extraocular motility is intact *CN XII Gag noted *SENSORY EXAMINATION patient withdraws to noxious stim to all 4 extremities. *REFLEXES: DTRs were absent diffusely, no pathological reflexes were noted. Results - Laboratory Findings CBC and BMP: 11/29/18 03:45 11/29/18 03:45 Abnormal lab findings: Abnormal lab results RBC 3.06 M/mcL (4.19-5.50) L 11/29/18 03:45 Hgb 7.9 g/dL (12.9-16.9) L D 11/29/18 03:45 Hct 25.8 % (37.5-50.1) L 11/29/18 03:45 MCH 25.8 pg (28.0-33.3) L 11/29/18 03:45 MCHC 30.6 g/dL (31.6-35.5) L 11/29/18 03:45 RDW 16.7 % (11.5-14.5) H 11/29/18 03:45 PT 13.2 Seconds (9.4-12.1) H 11/27/18 15:25 601 mg/dL (169-393) H 11/27/18 22:48 ABG pH 7.31 pH Units (7.32-7.45) L 11/29/18 05:07 ABG pCO2 48 mmHg (35-45) H 11/27/18 23:31 ABG pO2 80 mmHg (85-104) L 11/28/18 05:10 ABG O2 Saturation 90 % (95-98) L 11/28/18 01:04 ABG Base Excess -5 mEq/L (-2 to 3) L 11/29/18 05:07 Sodium 133 mEq/L (136-145) L 11/29/18 03:45 Potassium 6.3 mEq/L (3.5-5.1) H 11/28/18 Unknown Chloride 97 mEq/L (98-107) L 11/27/18 15:25 Carbon Dioxide 21 mEq/L (23-29) L 11/29/18 03:45 BUN 51 mg/dL (8-23) H 11/29/18 03:45 2.24 mg/dL (0.70-1.30) H 11/29/18 03:45 Est GFR ( Amer) 36 (> 60) L 11/29/18 03:45 Est GFR (Non-Af Amer) 29 (> 60) L 11/29/18 03:45 Glucose 158 mg/dL (70-105) H 11/29/18 03:45 POC Glucose 149 mg/dL (70-99) H 11/29/18 05:04 6.6 % (-5.6) H 11/28/18 00:29 279 (280-300) L 11/27/18 22:48 Lactic Acid 0.4 mmol/L (0.5-2.2) L 11/28/18 Unknown Calcium 7.8 mg/dL (8.6-10.3) L 11/29/18 03:45 Phosphorus 6.0 mg/dL (2.7-4.5) H 11/29/18 03:45 Magnesium 2.7 mg/dL (1.6-2.6) H 11/27/18 22:48 0.04 ng/mL (< 0.04) H* 11/28/18 Unknown 3.0 g/dL (3.5-5.7) L 11/27/18 22:48 4.5 g/dL (2.4-3.5) H 11/27/18 22:48 0.7 (1.1-2.2) L 11/27/18 22:48 Turbid (Clear) A 11/27/18 18:24 Ur Specific Ray 1.026 (1.010-1.025) H 11/27/18 18:24 >=300 mg/dL (Neg-Trace) H 11/27/18 18:24 100 mg/dL (Normal) H 11/27/18 18:24 Large (Negative) H 11/27/18 18:24 Small (Negative) H 11/27/18 18:24 Ur Leukocyte Esterase Large (Negative) H 11/27/18 18:24 TNTC per hpf (0-3) H 11/27/18 18:24 TNTC per hpf (0-3) H 11/27/18 18:24 Ur Squamous Epith Cells Many per lpf (None-Few) H 11/27/18 18:24 Few per hpf (None Seen) H 11/27/18 18:24 Ur Culture Indicated? YES (NO) A 11/27/18 18:24 Positive (Negative) A 11/28/18 11:55 Consult Discharge Plan - Plan Referrals: Ander Blankenship MD [Primary Care Provider] -
--- NOTE | 2018-11-29 07:58 | Pulmonology Progress Note ---
<Vishnu Gonzales - Last Filed: 11/29/18 12:12> Date of Encounter: 11/29/18 Time of Encounter: 07:57 Assessment and Plan (1) Anoxic brain injury Current Visit: Yes Status: Suspected -Likely anoxic brain injury 2/2 resp arrest at home facility -Completed hypothermia protocol 11/28/18 s/p cardiac arrest -Now following commands which were no signs yesterday -Intubated and lightly sedated -Neuro on board -EEG 11/28/18: Consistent with severe generalized encephalopathy -With improvement overnight will wean sedation further and trial cpap for likely extubation today (2) Respiratory arrest before cardiac arrest Current Visit: Yes Status: Acute -Resp arrest prior to arrival to hosp requiring bvm vent and intubated upon arrival -Initial ABG pH 7.3, pCO2 48, pO2 190, 100% on 100% FiO2 -ABG today improved wnl on mechanical ventilation -CXR 11/29/18: Improved aeration of L lung with persistent L basilar atelectesis vs pneumonia, pulm edema -CXR improved from complete L hemithorax opacification -Awake and following commands -Will wean sedation, trial cpap and likely extubate today (3) Cardiac arrest with successful resuscitation Current Visit: Yes Status: Acute -CPR initiated in ED with ROSC acheived after 1 round CPR and 1 dose epi -Initial trop <0.03 with repeat x3 adynamic at 0.04 -Cards consulted in ED with no plans for cath intervention (4) Sepsis Current Visit: Yes Status: Suspected -Suspected sepsis on arrival and started on empiric treatment -L hemithorax complete opacification on cxr pneumonia vs effusion -Bedside US today -Continue vanc, zosyn, and levofloxacin and stopping ceftriaxone -BC x2 11/27/18 pending -Urine culture 11/27/18 prelim pos gram neg matt -Hypothermic 94.6 but on active cooling currently -Vitals stable -MRSA swab pos Qualifiers: Sepsis type: sepsis due to unspecified organism Qualified Code(s): A41.9 - Sepsis, unspecified organism (5) JENN (acute kidney injury) Current Visit: Yes Status: Acute -Likely 2/2 hypoperfusion post cardiac arrest in the setting of suspected sepsis -Baseline Cr ~1.2 -Cr peak 2.53 -Cr trending down, 2.24 today -On empiric vanc and zosyn and will deescalate as cultures return given current renal function -Uop 900ml today -Neph on board (6) Hyperkalemia Current Visit: Yes Status: Acute -K on arrival 7, increased to 7.2 in ED -Received kayexalate, D50, Ca gluconate, and insulin in ED -Had BM yesterday after additional 60 kayexalate given -K 5.1 today -Neph following (7) Diabetes Current Visit: Yes Status: Chronic -SSI and q6h accuchek as NPO Qualifiers: Diabetes mellitus type: type 2 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 insulin use: with superintendent [employer] use Diabetes mellitus complication status: with hyperglycemia Qualified Code(s): E11.65 - Type 2 diabetes mellitus with hyperglycemia; Z79.4 - residential (current) use of insulin; Z79.4 - residential (current) use of insulin; Z79.4 - residential (current) use of insulin; Z79.4 - terminal carman (current) use of insulin (8) CHF (congestive heart failure) Current Visit: No Status: Chronic -Hx of systolic and diastolic heart failure -TTE 11/28/18: EF 50%, mild LV systolic dysfunction, mild lv dilation with concentric hypertrophy, mild lv diastolic dysfunction with hypokinesis, mod mod PH Qualifiers: Heart failure type: diastolic Heart failure chronicity: acute on chronic Qualified Code(s): I50.33 - Acute on chronic diastolic (congestive) heart failure (9) DVT prophylaxis Current Visit: No Status: Acute -Chemical Subjective Principal diagnosis: anoxic brain injury Interval history: Became alert and following commands overnight. Objective PUL Vital signs: Last Vital Signs Temp 97.1 F L 11/29/18 03:42 Pulse 65 11/29/18 07:00 Resp 18 11/29/18 07:00 BP 157/81 11/29/18 07:00 Pulse Ox 95 11/29/18 07:00 General appearance: no acute distress, asleep (but easily arrousable ) Eyes: nonicteric ENT: oropharynx dry Auscultation: bilateral: diminished breath sounds Cardiovascular: regular rate and rhythm Gastrointestinal: hypoactive bowel sounds, soft, non-tender, non-distended Extremities: no cyanosis, no clubbing, pink and warm, edema other (arrousable, follows commands) other (intubated ) Ventilator Settings Ventilator Settings: Ventilator Settings, Last 8 Hours Ventilator Tidal Volume 600 Setting Ventilator Tidal Volume 600 Setting Ventilator Tidal Volume 600 Setting Ventilator Tidal Volume 600 Setting Ventilator Tidal Volume 600 Setting Ventilator Tidal Volume 600 Setting Ventilator Tidal Volume 600 Setting Ventilator Tidal Volume 600 Setting Ventilator Tidal Volume 600 Setting Ventilator Tidal Volume 600 Setting Ventilator Respiratory Rate 20 Setting Ventilator Respiratory Rate 20 Setting Ventilator Respiratory Rate 20 Setting Ventilator Respiratory Rate 20 Setting Ventilator Respiratory Rate 20 Setting Ventilator Respiratory Rate 20 Setting Ventilator Respiratory Rate 20 Setting Ventilator Respiratory Rate 20 Setting Ventilator Respiratory Rate 20 Setting Ventilator Respiratory Rate 20 Setting Actual Respiratory Rate 18 Actual Respiratory Rate 23 Actual Respiratory Rate 23 Actual Respiratory Rate 22 Actual Respiratory Rate 22 Actual Respiratory Rate 22 Actual Respiratory Rate 22 Actual Respiratory Rate 21 Actual Respiratory Rate 22 Actual Respiratory Rate 23 Positive End Expiratory 5 Pressure Positive End Expiratory 5 Pressure Positive End Expiratory 5 Pressure Positive End Expiratory 5 Pressure Positive End Expiratory 5 Pressure Positive End Expiratory 5 Pressure Positive End Expiratory 5 Pressure Positive End Expiratory 5 Pressure Positive End Expiratory 5 Pressure Positive End Expiratory 5 Pressure Positive End Expiratory 5 Pressure Positive End Expiratory 5 Pressure Peak Inspiratory Airway 14 Pressure Peak Inspiratory Airway 29 Pressure Peak Inspiratory Airway 29 Pressure Peak Inspiratory Airway 23 Pressure Peak Inspiratory Airway 28 Pressure Peak Inspiratory Airway 28 Pressure Peak Inspiratory Airway 31 Pressure Peak Inspiratory Airway 31 Pressure Peak Inspiratory Airway 31 Pressure Peak Inspiratory Airway 31 Pressure Results - Laboratory Findings CBC and BMP: 11/29/18 03:45 11/29/18 03:45 ABG ABG pH 7.31 pH Units (7.32-7.45) L 11/29/18 05:07 ABG pCO2 43 mmHg (35-45) 11/29/18 05:07 ABG pO2 87 mmHg (85-104) 11/29/18 05:07 ABG O2 Saturation 96 % (95-98) 11/29/18 05:07 PT/INR, D-dimer PT 13.2 Seconds (9.4-12.1) H 11/27/18 15:25 Abnormal lab findings: Abnormal lab results RBC 3.06 M/mcL (4.19-5.50) L 11/29/18 03:45 Hgb 7.9 g/dL (12.9-16.9) L D 11/29/18 03:45 Hct 25.8 % (37.5-50.1) L 11/29/18 03:45 MCH 25.8 pg (28.0-33.3) L 11/29/18 03:45 MCHC 30.6 g/dL (31.6-35.5) L 11/29/18 03:45 RDW 16.7 % (11.5-14.5) H 11/29/18 03:45 PT 13.2 Seconds (9.4-12.1) H 11/27/18 15:25 601 mg/dL (169-393) H 11/27/18 22:48 ABG pH 7.31 pH Units (7.32-7.45) L 11/29/18 05:07 ABG pCO2 48 mmHg (35-45) H 11/27/18 23:31 ABG pO2 80 mmHg (85-104) L 11/28/18 05:10 ABG O2 Saturation 90 % (95-98) L 11/28/18 01:04 ABG Base Excess -5 mEq/L (-2 to 3) L 11/29/18 05:07 Sodium 133 mEq/L (136-145) L 11/29/18 03:45 Potassium 6.3 mEq/L (3.5-5.1) H 11/28/18 Unknown Chloride 97 mEq/L (98-107) L 11/27/18 15:25 Carbon Dioxide 21 mEq/L (23-29) L 11/29/18 03:45 BUN 51 mg/dL (8-23) H 11/29/18 03:45 2.24 mg/dL (0.70-1.30) H 11/29/18 03:45 Est GFR ( Amer) 36 (> 60) L 11/29/18 03:45 Est GFR (Non-Af Amer) 29 (> 60) L 11/29/18 03:45 Glucose 158 mg/dL (70-105) H 11/29/18 03:45 POC Glucose 149 mg/dL (70-99) H 11/29/18 05:04 6.6 % (-5.6) H 11/28/18 00:29 279 (280-300) L 11/27/18 22:48 Lactic Acid 0.4 mmol/L (0.5-2.2) L 11/28/18 Unknown Calcium 7.8 mg/dL (8.6-10.3) L 11/29/18 03:45 Phosphorus 6.0 mg/dL (2.7-4.5) H 11/29/18 03:45 Magnesium 2.7 mg/dL (1.6-2.6) H 11/27/18 22:48 0.04 ng/mL (< 0.04) H* 11/28/18 Unknown 3.0 g/dL (3.5-5.7) L 11/27/18 22:48 4.5 g/dL (2.4-3.5) H 11/27/18 22:48 0.7 (1.1-2.2) L 11/27/18 22:48 Turbid (Clear) A 11/27/18 18:24 Ur Specific [place] 1.026 (1.010-1.025) H 11/27/18 18:24 >=300 mg/dL (Neg-Trace) H 11/27/18 18:24 100 mg/dL (Normal) H 11/27/18 18:24 Large (Negative) H 11/27/18 18:24 Small (Negative) H 11/27/18 18:24 Ur Leukocyte Esterase Large (Negative) H 11/27/18 18:24 TNTC per hpf (0-3) H 11/27/18 18:24 TNTC per hpf (0-3) H 11/27/18 18:24 Ur Squamous Epith Cells Many per lpf (None-Few) H 11/27/18 18:24 Few per hpf (None Seen) H 11/27/18 18:24 Ur Culture Indicated? YES (NO) A 11/27/18 18:24 Positive (Negative) A 11/28/18 11:55 - Microbiology Findings Microbiology Findings: Microbiology, Last 48 Hours 11/27/18 18:24 Urine Culture - Preliminary Urine,[place] Gram Negative Mtat 11/28/18 11:55 Sputum Culture - Preliminary Trachea 11/27/18 15:55 Blood Culture - Preliminary Peripheral Venipuncture Culture is incubating and being continuously monitored for growth. Final report to follow. 11/27/18 15:55 Blood Culture - Preliminary Peripheral Venipuncture Culture is incubating and being continuously monitored for growth. Final report to follow. - Clinical Findings Intake & Output: Intake & Output 11/28/18 11/28/18 11/29/18 15:59 23:59 07:59 Intake Total 1279 / 4623 1950 / 4623 1300 / 1300 Output Total 425 / 725 300 / 725 250 / 250 Balance 854 / 3898 1650 / 3898 1050 / 1050 Weight 166.5 kg Consult Discharge Plan - Plan Referrals: Ander Blankenship MD [Primary Care Provider] - <Sera Medina - Last Filed: 11/29/18 22:35> Date of Encounter: 11/29/18 Objective PUL Vital signs: Last Vital Signs Temp 97.7 F 11/29/18 11:00 Pulse 83 11/29/18 15:00 Resp 14 11/29/18 15:26 BP 154/78 11/29/18 15:26 Pulse Ox 96 11/29/18 15:26 Ventilator Settings Ventilator Settings: Ventilator Settings, Last 8 Hours Actual Respiratory Rate 13 Actual Respiratory Rate 12 Positive End Expiratory 5 Pressure Positive End Expiratory 5 Pressure Peak Inspiratory Airway 14 Pressure Peak Inspiratory Airway 14 Pressure Results - Laboratory Findings CBC and BMP: 11/29/18 03:45 11/29/18 03:45 ABG ABG pH 7.31 pH Units (7.32-7.45) L 11/29/18 05:07 ABG pCO2 43 mmHg (35-45) 11/29/18 05:07 ABG pO2 87 mmHg (85-104) 11/29/18 05:07 ABG O2 Saturation 96 % (95-98) 11/29/18 05:07 PT/INR, D-dimer PT 13.2 Seconds (9.4-12.1) H 11/27/18 15:25 Abnormal lab findings: Abnormal lab results RBC 3.06 M/mcL (4.19-5.50) L 11/29/18 03:45 Hgb 7.9 g/dL (12.9-16.9) L D 11/29/18 03:45 Hct 25.8 % (37.5-50.1) L 11/29/18 03:45 MCH 25.8 pg (28.0-33.3) L 11/29/18 03:45 MCHC 30.6 g/dL (31.6-35.5) L 11/29/18 03:45 RDW 16.7 % (11.5-14.5) H 11/29/18 03:45 PT 13.2 Seconds (9.4-12.1) H 11/27/18 15:25 601 mg/dL (169-393) H 11/27/18 22:48 ABG pH 7.31 pH Units (7.32-7.45) L 11/29/18 05:07 ABG pCO2 48 mmHg (35-45) H 11/27/18 23:31 ABG pO2 80 mmHg (85-104) L 11/28/18 05:10 ABG O2 Saturation 90 % (95-98) L 11/28/18 01:04 ABG Base Excess -5 mEq/L (-2 to 3) L 11/29/18 05:07 Sodium 133 mEq/L (136-145) L 11/29/18 03:45 Potassium 6.3 mEq/L (3.5-5.1) H 11/28/18 Unknown Chloride 97 mEq/L (98-107) L 11/27/18 15:25 Carbon Dioxide 21 mEq/L (23-29) L 11/29/18 03:45 BUN 51 mg/dL (8-23) H 11/29/18 03:45 2.24 mg/dL (0.70-1.30) H 11/29/18 03:45 Est GFR ( Amer) 36 (> 60) L 11/29/18 03:45 Est GFR (Non-Af Amer) 29 (> 60) L 11/29/18 03:45 Glucose 158 mg/dL (70-105) H 11/29/18 03:45 POC Glucose 134 mg/dL (70-99) H 11/29/18 11:26 6.6 % (-5.6) H 11/28/18 00:29 279 (280-300) L 11/27/18 22:48 Lactic Acid 0.4 mmol/L (0.5-2.2) L 11/28/18 Unknown Calcium 7.8 mg/dL (8.6-10.3) L 11/29/18 03:45 Phosphorus 6.0 mg/dL (2.7-4.5) H 11/29/18 03:45 Magnesium 2.7 mg/dL (1.6-2.6) H 11/27/18 22:48 0.04 ng/mL (< 0.04) H* 05/06/19 Unknown 3.0 g/dL (3.5-5.7) L 11/27/18 22:48 4.5 g/dL (2.4-3.5) H 11/27/18 22:48 0.7 (1.1-2.2) L 11/27/18 22:48 0.35 ng/mL (0.00-0.15) H 11/29/18 03:45 Turbid (Clear) A 11/27/18 18:24 Ur Specific [place] 1.026 (1.010-1.025) H 11/27/18 18:24 >=300 mg/dL (Neg-Trace) H 11/27/18 18:24 100 mg/dL (Normal) H 11/27/18 18:24 Large (Negative) H 11/27/18 18:24 Small (Negative) H 11/27/18 18:24 Ur Leukocyte Esterase Large (Negative) H 11/27/18 18:24 TNTC per hpf (0-3) H 11/27/18 18:24 TNTC per hpf (0-3) H 11/27/18 18:24 Ur Squamous Epith Cells Many per lpf (None-Few) H 11/27/18 18:24 Few per hpf (None Seen) H 11/27/18 18:24 Ur Culture Indicated? YES (NO) A 11/27/18 18:24 Positive (Negative) A 11/28/18 11:55 - Microbiology Findings Microbiology Findings: Microbiology, Last 48 Hours 11/28/18 11:55 Sputum Culture - Preliminary Trachea Gram Positive Rods 11/27/18 18:24 Urine Culture - Preliminary Urine,[place] Gram Negative Matt 11/27/18 15:55 Blood Culture - Preliminary Peripheral Venipuncture Culture is incubating and being continuously monitored for growth. Final report to follow. 11/27/18 15:55 Blood Culture - Preliminary Peripheral Venipuncture Culture is incubating and being continuously monitored for growth. Final report to follow. - Clinical Findings Intake & Output: Intake & Output 11/28/18 11/29/18 11/29/18 23:59 07:59 15:59 Intake Total 1950 / 4623 1300 / 2190 890 / 2190 Output Total 300 / 725 250 / 900 650 / 900 Balance 1650 / 3898 1050 / 1290 240 / 1290 Weight 166.5 kg - Attending Attestation I examined this patient and my medical decision-making was reviewed with the Resident Physician. I agree with the documented findings, disposition and treatment plan as described except to the extent set forth below. Patient seen and examined. Labs, radiology, chart personally reviewed. Agree with resident's history and physical, assessment, plan with following comments: [employer]: Patient follows commands, patient has completed his hypothermia and rewarming was done successfully Pulmonary: Acceptable oxygenation and ventilation and had acceptable SBT and he was successfully extubated to BiPAP Cardiovascular: stable and recommendations from cardiology. GI: Nutrition per dietary and GI prophylaxis per routine Heme: DVT prophylaxis per routine ID: Continue antibiotics and plan to de-escalation Renal; urine out put and renal funtion reviewed Endorcine: blood glucose is monitored Lines: all lines checked and no evidence of infections Skin: skin care to prevent pressure ulcers per nursing routine care Pt will need physical therapy and hoping he can leave in next 24 hours.
[2018-11-29] MEDS: Chlorhexidine Rinse 15 ML MOUTHWASH MM SCH ×2 (08:48→20:31)
[2018-11-29] MEDS: Pantoprazole 40 MG VIAL IVP SCH (08:48)
[2018-11-29] MEDS: Piperacillin/Tazobactam 3.375 GM in 0.9 % Sodium Chloride Mini Bag 100 ML IVPB SCH ×3 (08:48→23:30)
[2018-11-29] MEDS: Ketoconazole 2% CRM 15 GM TUBE TP SCH ×2 (08:49→20:31)
[2018-11-29] MEDS ORDERED: Aminoglycoside Consult 1 EACH MC ONE (09:12)
--- NOTE | 2018-11-29 09:20 | Nephrology Progress Note ---
Date of Encounter: 11/29/18 Time of Encounter: 12:00 Objective - Vital Signs Vital signs: Vital Signs Temp Pulse Resp BP Pulse Ox 11/29/18 09:00 73 18 154/81 95 11/29/18 08:44 97.2 F L 11/29/18 08:01 12 157/81 96 11/29/18 08:00 75 18 168/88 95 11/29/18 07:00 65 18 157/81 95 11/29/18 06:30 18 123/67 96 11/29/18 06:00 64 23 123/67 96 11/29/18 05:57 23 118/101 96 11/29/18 05:00 63 22 141/72 98 11/29/18 04:00 68 23 142/79 98 11/29/18 03:42 97.1 F L 11/29/18 03:24 22 133/70 97 11/29/18 03:00 66 11/29/18 02:00 97.6 F 70 22 129/71 98 11/29/18 01:52 22 132/72 98 11/29/18 01:00 97.5 F L 72 22 141/88 98 11/29/18 00:30 97.0 F L 65 21 86/48 96 11/29/18 00:15 96.6 F L 63 22 90/73 97 11/29/18 00:00 96.4 F L 65 23 90/73 97 11/28/18 23:45 96.4 F L 63 23 91/65 97 11/28/18 23:30 96.4 F L 66 22 88/59 96 11/28/18 23:15 96.6 F L 63 22 85/44 96 11/28/18 23:09 23 91/51 96 11/28/18 23:00 96.4 F L 70 23 91/51 95 11/28/18 22:46 96.3 F L 62 20 89/50 98 11/28/18 22:30 96.1 F L 58 21 88/48 98 11/28/18 22:15 95.5 F L 58 23 92/51 98 11/28/18 22:00 95.4 F L 58 23 91/54 98 11/28/18 21:45 95.2 F L 57 21 90/55 98 11/28/18 21:30 95 F L 57 22 93/52 98 11/28/18 21:21 22 84/56 97 11/28/18 21:15 95.2 F L 60 22 84/56 98 11/28/18 21:00 95 F L 62 20 83/53 96 11/28/18 20:21 95.0 F L 11/28/18 20:00 95 F L 58 20 99/53 96 11/28/18 19:52 20 99/53 96 11/28/18 19:00 95 F L 58 23 104/62 95 11/28/18 18:00 54 21 117/58 97 11/28/18 17:10 26 96/65 95 11/28/18 17:00 65 23 111/59 94 11/28/18 16:00 66 23 111/63 94 11/28/18 15:13 66 11/28/18 15:00 95.3 F L 66 25 116/53 95 11/28/18 14:00 54 22 110/55 94 11/28/18 13:10 21 102/51 91 11/28/18 13:00 58 21 103/67 95 11/28/18 12:00 58 21 132/71 95 11/28/18 11:35 21 122/72 96 11/28/18 11:31 50 11/28/18 11:00 94.6 F L 50 20 122/72 95 11/28/18 10:00 56 20 124/65 95 11/28/18 09:35 20 125/69 94 Intake and Output 11/28/18 11/29/18 11/29/18 23:59 07:59 15:59 Intake Total 1949 1300 / 1300 Output Total 300 / 725 250 / 500 250 / 500 Balance 1650 / 3898 1050 / 800 -250 / 800 Intake: IV Fluids 1949 1300 / 1300 D5% And 0.9% Nacl 1000 Ml 1,000 1000 / 3000 1000 / 1000 ML @ 150 mls/hr IVC .[id number] [facility] Rx#:[id number] FentaNYL (PF) 1,000 MCG In 0.9 100 / 288 80 / 80 % Sodium Chloride 80 ML @ 50 MCG/HR 5 mls/hr IVC CONT [facility] Rx #:[id number] Diprivan 1,000 mg In 100 ml @ 5 100 / 100 120 / 120 MCG/KG/MIN 4.842 mls/hr IVC . [id number] [facility] Rx#:[id number] Levaquin Premix 750mg/150 mL 150 / 150 750 mg In 150 ml @ 100 mls/hr IVPB Q48H [facility] Rx#:[id number] Zosyn 3.375 GM In 0.9 % Sodium 100 / 200 100 / 100 Chloride (Mini-Bag +) 100 ML @ 25 mls/hr IVPB Q8HR [facility] Rx#: [id number] Vancocin 2,000 MG In 0.9 % 500 / 500 Sodium Chloride 500 ML @ 250 mls/hr IVPB Q24H [facility] Rx#: [id number] Oral 0 / 0 0 / 0 Output: Catheter 300 / 725 250 / 500 250 / 500 Gastric Drainage 0 / 0 0 / 0 Other: Stool Size Moderate Large Stool Consistency soft loose soft Stool Characteristics Pasty Stool Color Brown Brown # Bowel Movements 1 1 Weight 166.5 kg Blood Glucose* 150 149 Patient Weight 11/29/18 23:59 Weight 166.5 kg - Lab 11/29/18 03:45 11/29/18 03:45 Most recent lab results 11/29/18 11/29/18 03:45 05:07 ABG pH 7.31 L ABG pCO2 43 ABG pO2 87 ABG HCO3 22 ABG O2 Saturation 96 Calcium 7.8 L Phosphorus 6.0 H Magnesium 2.4 Consult Discharge Plan - Plan Referrals: Ander Blankenship MD [Primary Care Provider] -
[2018-11-29] MEDS: Norepinephrine 4 MG in D5% in Water 250 ML IVC SCH (09:49)
--- NOTE | 2018-11-29 13:52 | Event Note ---
Date of Encounter: 11/29/18 Time of Encounter: 13:49 - Cardiology Event Note Discussed and reviewed case with Dr. Nawaf Olsen. Since ICD met JJ 02/2018, would recommend generator change prior to d/c. Will continue to follow and re-evaluate pt status in AM. Possible gen change on if clinical status allows.
--- NOTE | 2018-11-29 14:59 | Electrocardiograph Report ---
[address] [place], [place] [address] Test Date: 2018-11-27 Pat Name: Angel Wright Department: [id number] Room: 10 Gender: M Desolderer: : 1950 Requested By: Joe Redding Order Number: [id number] Reading MD: Nawaf Olsen Measurements Intervals Cable Rate: 80 P: 73 MT: 253 QRS: -74 QRSD: 109 T: 73 QT: 398 QTc: 460 Interpretive Statements Sinus rhythm Intraventricular conduction delay Inferior infarct age indeterminate Anteroseptal infarct age indeterminate Electronically Signed On 11-29-2018 14:58:07 EDT by Nawaf Olsen
[2018-11-30] MEDS: Artificial Tears SOLN 15 ML BOTTLE BOTH EYES SCH (03:27)
[2018-11-30] MEDS: Hydrocortisone Sodium Succ 100 MG/2 ML VIAL IVP SCH ×3 (03:27→20:25)
[2018-11-30 03:55] LABS: Basophils % 0.3 %; Hematocrit 27.1 % (37.5-50.1); Hemoglobin 8.1 g/dL (12.9-16.9); Immature Granulocytes % 0.8 % (0-4); Lymphocytes % 17.3 %; Mean Corpuscular HGB Conc 29.9 g/dL (31.6-35.5); Mean Corpuscular Hemoglobin 25.5 pg (28.0-33.3); Mean Corpuscular Volume 85.2 fL (83.0-100.0); Monocytes # 0.5 K/mcL (0.0-1.3); Monocytes % 8.5 %; Neutrophils # 4.3 K/mcL (1.6-8.9); Platelet Count 213 K/mcL (140-400); Red Blood Count 3.18 M/mcL (4.19-5.50); Red Cell Distribution Width 16.9 % (11.5-14.5); Segmented Neutrophils % 73.1 %
[2018-11-30 04:01] LABS: Calcium 8.5 mg/dL (8.6-10.3); Magnesium 2.4 mg/dL (1.6-2.6); Phosphorous 5.9 mg/dL (2.7-4.5)
[2018-11-30] MEDS: Dexmedetomidine HCl 400 MCG/100 ML MLS IVC SCH (05:19)
[2018-11-30] MEDS: *HR* Heparin 5,000 UNIT/ML VIAL SQ SCH ×3 (05:37→20:25)
[2018-11-30] MEDS: Insulin LISPRO 300 UNITS/3 ML VIAL SQ SCH ×4 (05:47→20:26)
[2018-11-30] MEDS: Piperacillin/Tazobactam 3.375 GM in 0.9 % Sodium Chloride Mini Bag 100 ML IVPB SCH ×2 (08:20→15:55)
[2018-11-30] MEDS: Pantoprazole 40 MG VIAL IVP SCH (08:20)
[2018-11-30] MEDS: Ketoconazole 2% CRM 15 GM TUBE TP SCH ×2 (08:21→20:26)
[2018-11-30] MEDS ORDERED: Furosemide 40 MG/4 ML VIAL IVP SCH (09:00)
--- NOTE | 2018-11-30 09:13 | Neurology Progress Note ---
Date of Encounter: 11/30/18 Time of Encounter: 08:00 Assessment and Plan (1) Anoxic brain injury Current Visit: Yes Status: Suspected Patient at this time has significantly improved with regards to his cognitive status. This is a good prognostic sign. However once he is out of the intensive care unit we will be better able to identify any subtle changes in cognition. Otherwise I will sign off and reevaluate at your request. Subjective Principal diagnosis: anoxic brain injury Interval history: The chart was reviewed, patient was seen and examined. Patient has been extubated and is currently on CPAP. He was sleeping upon my entering the room and is easily aroused to voice. Patient is following commands and talking. He moves all 4 extremities. He is asking for a meal. No involuntary movements are identified. Objective - Constitutional Vitals: Temp Pulse Resp BP Pulse Ox 97.9 F 82 18 166/83 96 11/30/18 07:35 11/30/18 08:00 11/30/18 08:00 11/30/18 08:00 11/30/18 08:00 Exam: Exam: Examination: General Examination: *CONSTITUTIONAL: Patient now on CPAP *GENERAL APPEARANCE OF PATIENT ill appearing elderly male *EYES: pupils are round and equal bilaterally but do not respond to light *CARDIOVASCULAR bradycardic, no peripheral edema, dorsal pedis pulses intact Musculoskeletal: *GAIT AND STATION not assessed, patient still in ICU. *ASSESSMENT OF MUSCLE STRENGTH IN THE UPPER AND LOWER EXTREMITIES patient is now moving all 4 extremities freely. No posturing is present. No involuntary movements are present. *MUSCLE TONE IN THE UPPER AND LOWER EXTREMITIES normal tone is present throughout Neurological: *ORIENTATION alert and oriented to person and place. *RECURRENT AND REMOTE MEMORY intact *ATTENTION AND CONCENTRATION seem to be normal. Patient makes eye contact follows commands and answers questions appropriately. He is asking for meal. *CN II optic fundi were normal, no papilledema noted. *CN III,IV, PUPILS ARE ROUND AND EQUAL BILATERALLY extraocular motility is intact *CN XII Gag noted *SENSORY EXAMINATION patient withdraws to noxious stim to all 4 extremities. *REFLEXES: DTRs were absent diffusely, no pathological reflexes were noted. Results - Laboratory Findings CBC and BMP: 11/30/18 03:30 11/30/18 03:30 Abnormal lab findings: Abnormal lab results RBC 3.18 M/mcL (4.19-5.50) L 11/30/18 03:30 Hgb 8.1 g/dL (12.9-16.9) L 11/30/18 03:30 Hct 27.1 % (37.5-50.1) L 11/30/18 03:30 MCH 25.5 pg (28.0-33.3) L 11/30/18 03:30 MCHC 29.9 g/dL (31.6-35.5) L 11/30/18 03:30 RDW 16.9 % (11.5-14.5) H 11/30/18 03:30 PT 13.2 Seconds (9.4-12.1) H 11/27/18 15:25 601 mg/dL (169-393) H 11/27/18 22:48 ABG pH 7.31 pH Units (7.32-7.45) L 11/29/18 05:07 ABG pCO2 48 mmHg (35-45) H 11/27/18 23:31 ABG pO2 80 mmHg (85-104) L 11/28/18 05:10 ABG O2 Saturation 90 % (95-98) L 11/28/18 01:04 ABG Base Excess -5 mEq/L (-2 to 3) L 11/29/18 05:07 Sodium 133 mEq/L (136-145) L 11/29/18 03:45 Potassium 6.3 mEq/L (3.5-5.1) H 11/28/18 Unknown Chloride 97 mEq/L (98-107) L 11/27/18 15:25 Carbon Dioxide 21 mEq/L (23-29) L 11/30/18 03:30 BUN 50 mg/dL (8-23) H 11/30/18 03:30 2.36 mg/dL (0.70-1.30) H 11/30/18 03:30 Est GFR ( Amer) 34 (> 60) L 11/30/18 03:30 Est GFR (Non-Af Amer) 28 (> 60) L 11/30/18 03:30 Glucose 118 mg/dL (70-105) H 11/30/18 03:30 POC Glucose 105 mg/dL (70-99) H 11/29/18 23:26 6.6 % (-5.6) H 11/28/18 00:29 279 (280-300) L 11/27/18 22:48 Lactic Acid 0.4 mmol/L (0.5-2.2) L 11/28/18 Unknown Calcium 8.5 mg/dL (8.6-10.3) L 11/30/18 03:30 Phosphorus 5.9 mg/dL (2.7-4.5) H 11/30/18 03:30 Magnesium 2.7 mg/dL (1.6-2.6) H 11/27/18 22:48 0.04 ng/mL (< 0.04) H* 11/28/18 Unknown 3.0 g/dL (3.5-5.7) L 11/27/18 22:48 4.5 g/dL (2.4-3.5) H 11/27/18 22:48 0.7 (1.1-2.2) L 11/27/18 22:48 0.35 ng/mL (0.00-0.15) H 11/29/18 03:45 Turbid (Clear) A 11/27/18 18:24 Ur Specific [place] 1.026 (1.010-1.025) H 11/27/18 18:24 >=300 mg/dL (Neg-Trace) H 11/27/18 18:24 100 mg/dL (Normal) H 11/27/18 18:24 Large (Negative) H 11/27/18 18:24 Small (Negative) H 11/27/18 18:24 Ur Leukocyte Esterase Large (Negative) H 11/27/18 18:24 TNTC per hpf (0-3) H 11/27/18 18:24 TNTC per hpf (0-3) H 11/27/18 18:24 Ur Squamous Epith Cells Many per lpf (None-Few) H 11/27/18 18:24 Few per hpf (None Seen) H 11/27/18 18:24 Ur Culture Indicated? YES (NO) A 11/27/18 18:24 Positive (Negative) A 11/28/18 11:55 Vancomycin Trough 22 mcg/mL (5-10) H 11/29/18 19:10 Consult Discharge Plan - Plan Referrals: Ander Blankenship MD [Primary Care Provider] -
--- NOTE | 2018-11-30 09:57 | Pulmonology Progress Note ---
<Yash Aguilar - Last Filed: 11/30/18 12:56> Date of Encounter: 11/30/18 Time of Encounter: 10:57 Assessment and Plan (1) Anoxic brain injury Current Visit: Yes Status: Suspected Likely anoxic brain injury secondary to respiratory rest at home facility 11/28/2018, patient was status post cardiac arrest incompleted hypothermia protocol Today on examination patient is following commands this is been progressively better since yesterday. Neurology is signed off at this point as patient is currently alert and oriented EEG performed on 11/28/2018 was consistent with severe generalized encephalopathy Patient was extubated today, currently on BiPAP, looking to wean to high flow/ nasal cannula, currently tolerating BiPAP Will sign off at this time. Patient to be transferred to (2) Cardiac arrest with successful resuscitation Current Visit: Yes Status: Acute CPR initiated the ED with rales after one round of CPR and one dose of epi Initial troponin less than 0.03 with repeat 3 Cards was consults in the ED no further appointments for catheter intervention (3) Respiratory arrest before cardiac arrest Current Visit: Yes Status: Acute Respiratory arrest prior to arrival to the ED requiring BVM and intubated prior to arrival Initial ABG as follows, pH of 7.3, PCO2 40, PO2 190, 100% on 100% FiO2 ABG yesterday was reassuring, currently patient is extubated and on BiPAP (4) Sepsis Current Visit: No Status: Acute Suspected sepsis on arrival sternotomy. Treatment Patient was unable to left hemithorax with complete opacification on chest x-ray maneuvers a few N We will stop vancomycin and Levaquin Ceftriaxone was stopped yesterday We will continue Zosyn day 4 Blood cultures 2 that were taken on 11/27/2018 are currently pending Urine culture from 11/27/2018 shows Providencia Stuartii Sputum culture shows Corynebacterium stratum, most likely normal juan pablo Vitals remained stable MRSA swab positive Qualifiers: Sepsis type: sepsis due to unspecified organism Qualified Code(s): A41.9 - Sepsis, unspecified organism (5) Systolic and diastolic CHF, chronic Current Visit: No Status: Acute Hx of systolic and diastolic heart failure TTE 11/28/18: EF 50%, mild LV systolic dysfunction, mild lv dilation with concentric hypertrophy, mild lv diastolic dysfunction with hypokinesis, mod mod PH (6) JENN (acute kidney injury) Current Visit: Yes Status: Acute Likely secondary to hypoperfusion following post cardiac arrest in setting of suspected sepsis Baseline creatinine of 1.2 Creatinine 2.53 Creatinine has been downtrending 2.36 We will continue on Zosyn Nephro is on board (7) Hyperkalemia Current Visit: Yes Status: Acute K on arrival 7, increased to 7.2 in ED Received kayexalate, D50, Ca gluconate, and insulin in ED K 4.0 today Neph following (8) DVT prophylaxis Current Visit: No Status: Acute Chemical (9) T2DM (type 2 diabetes mellitus) Current Visit: No Status: Acute Sliding scale insulin and every 6 hours Accu-Chek Patient currently nothing by mouth but advancing diet Qualifiers: Diabetes mellitus detention insulin use: with detention use Diabetes mellitus complication status: without complication Qualified Code(s): E11.9 - Type 2 diabetes mellitus without complications; Z79.4 - 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 No abdominal pain, nausea, chest pain, shortness of breath, lightheaded or dizziness. Objective PUL Vital signs: Last Vital Signs Temp 97.9 F 11/30/18 07:35 Pulse 87 11/30/18 09:00 Resp 18 11/30/18 09:00 BP 162/77 11/30/18 09:00 Pulse Ox 96 11/30/18 09:00 General appearance: no acute distress Eyes: nonicteric ENT: oropharynx moist Mallampati (class): 3 Neck: supple Effort: normal Auscultation: left: rales, bilateral: clear Cardiovascular: regular rate and rhythm Gastrointestinal: normoactive bowel sounds, soft, non-tender, non-distended Integumentary: normal Extremities: no cyanosis, pink and warm, pulses normal Musculoskeletal: no deformities normal mental status, non-focal exam mood appropriate, affect normal Results - Laboratory Findings CBC and BMP: 11/30/18 03:30 11/30/18 03:30 ABG ABG pH 7.31 pH Units (7.32-7.45) L 11/29/18 05:07 ABG pCO2 43 mmHg (35-45) 11/29/18 05:07 ABG pO2 87 mmHg (85-104) 11/29/18 05:07 ABG O2 Saturation 96 % (95-98) 11/29/18 05:07 PT/INR, D-dimer PT 13.2 Seconds (9.4-12.1) H 11/27/18 15:25 Abnormal lab findings: Abnormal lab results RBC 3.18 M/mcL (4.19-5.50) L 11/30/18 03:30 Hgb 8.1 g/dL (12.9-16.9) L 11/30/18 03:30 Hct 27.1 % (37.5-50.1) L 11/30/18 03:30 MCH 25.5 pg (28.0-33.3) L 11/30/18 03:30 MCHC 29.9 g/dL (31.6-35.5) L 11/30/18 03:30 RDW 16.9 % (11.5-14.5) H 11/30/18 03:30 PT 13.2 Seconds (9.4-12.1) H 11/27/18 15:25 601 mg/dL (169-393) H 11/27/18 22:48 ABG pH 7.31 pH Units (7.32-7.45) L 11/29/18 05:07 ABG pCO2 48 mmHg (35-45) H 11/27/18 23:31 ABG pO2 80 mmHg (85-104) L 11/28/18 05:10 ABG O2 Saturation 90 % (95-98) L 11/28/18 01:04 ABG Base Excess -5 mEq/L (-2 to 3) L 11/29/18 05:07 Sodium 133 mEq/L (136-145) L 11/29/18 03:45 Potassium 6.3 mEq/L (3.5-5.1) H 11/28/18 Unknown Chloride 97 mEq/L (98-107) L 11/27/18 15:25 Carbon Dioxide 21 mEq/L (23-29) L 11/30/18 03:30 BUN 50 mg/dL (8-23) H 11/30/18 03:30 2.36 mg/dL (0.70-1.30) H 11/30/18 03:30 Est GFR ( Amer) 34 (> 60) L 11/30/18 03:30 Est GFR (Non-Af Amer) 28 (> 60) L 11/30/18 03:30 Glucose 118 mg/dL (70-105) H 11/30/18 03:30 POC Glucose 105 mg/dL (70-99) H 11/29/18 23:26 6.6 % (-5.6) H 11/28/18 00:29 279 (280-300) L 11/27/18 22:48 Lactic Acid 0.4 mmol/L (0.5-2.2) L 11/28/18 Unknown Calcium 8.5 mg/dL (8.6-10.3) L 11/30/18 03:30 Phosphorus 5.9 mg/dL (2.7-4.5) H 11/30/18 03:30 Magnesium 2.7 mg/dL (1.6-2.6) H 11/27/18 22:48 0.04 ng/mL (< 0.04) H* 11/28/18 Unknown 3.0 g/dL (3.5-5.7) L 11/27/18 22:48 4.5 g/dL (2.4-3.5) H 11/27/18 22:48 0.7 (1.1-2.2) L 11/27/18 22:48 0.35 ng/mL (0.00-0.15) H 11/29/18 03:45 Turbid (Clear) A 11/27/18 18:24 Ur Specific [place] 1.026 (1.010-1.025) H 11/27/18 18:24 >=300 mg/dL (Neg-Trace) H 11/27/18 18:24 100 mg/dL (Normal) H 11/27/18 18:24 Large (Negative) H 11/27/18 18:24 Small (Negative) H 11/27/18 18:24 Ur Leukocyte Esterase Large (Negative) H 11/27/18 18:24 TNTC per hpf (0-3) H 11/27/18 18:24 TNTC per hpf (0-3) H 11/27/18 18:24 Ur Squamous Epith Cells Many per lpf (None-Few) H 11/27/18 18:24 Few per hpf (None Seen) H 11/27/18 18:24 Ur Culture Indicated? YES (NO) A 11/27/18 18:24 Positive (Negative) A 11/28/18 11:55 Vancomycin Trough 22 mcg/mL (5-10) H 11/29/18 19:10 - Microbiology Findings Microbiology Findings: Microbiology, Last 48 Hours 11/27/18 18:24 Urine Culture - Preliminary Urine,[place] Providencia stuartii Gram Positive Cocci 11/28/18 11:55 Sputum Culture - Final Trachea Corynebacterium striatum - Diagnostic Findings Chest x-ray: report reviewed, image reviewed - Clinical Findings Intake & Output: Intake & Output 11/29/18 11/30/18 11/30/18 23:59 07:59 15:59 Intake Total 350 / 2540 100 / 100 Output Total 475 / 1725 600 / 600 Balance -125 / 815 -500 / -500 Weight 159.6 kg Consult Discharge Plan - Plan Referrals: Ander Blankenship MD [Primary Care Provider] - <Sera Medina - Last Filed: 11/30/18 16:14> Date of Encounter: 11/30/18 Objective PUL Vital signs: Last Vital Signs Temp 97.7 F 11/30/18 15:13 Pulse 93 11/30/18 15:18 Resp 18 11/30/18 13:00 BP 144/76 11/30/18 13:00 Pulse Ox 94 11/30/18 13:00 Results - Laboratory Findings CBC and BMP: 11/30/18 03:30 11/30/18 03:30 ABG ABG pH 7.31 pH Units (7.32-7.45) L 11/29/18 05:07 ABG pCO2 43 mmHg (35-45) 11/29/18 05:07 ABG pO2 87 mmHg (85-104) 11/29/18 05:07 ABG O2 Saturation 96 % (95-98) 11/29/18 05:07 PT/INR, D-dimer PT 13.2 Seconds (9.4-12.1) H 11/27/18 15:25 Abnormal lab findings: Abnormal lab results RBC 3.18 M/mcL (4.19-5.50) L 11/30/18 03:30 Hgb 8.1 g/dL (12.9-16.9) L 11/30/18 03:30 Hct 27.1 % (37.5-50.1) L 11/30/18 03:30 MCH 25.5 pg (28.0-33.3) L 11/30/18 03:30 MCHC 29.9 g/dL (31.6-35.5) L 11/30/18 03:30 RDW 16.9 % (11.5-14.5) H 11/30/18 03:30 PT 13.2 Seconds (9.4-12.1) H 11/27/18 15:25 601 mg/dL (169-393) H 11/27/18 22:48 ABG pH 7.31 pH Units (7.32-7.45) L 11/29/18 05:07 ABG pCO2 48 mmHg (35-45) H 11/27/18 23:31 ABG pO2 80 mmHg (85-104) L 11/28/18 05:10 ABG O2 Saturation 90 % (95-98) L 11/28/18 01:04 ABG Base Excess -5 mEq/L (-2 to 3) L 11/29/18 05:07 Sodium 133 mEq/L (136-145) L 11/29/18 03:45 Potassium 6.3 mEq/L (3.5-5.1) H 11/28/18 Unknown Chloride 97 mEq/L (98-107) L 11/27/18 15:25 Carbon Dioxide 21 mEq/L (23-29) L 11/30/18 03:30 BUN 50 mg/dL (8-23) H 11/30/18 03:30 2.36 mg/dL (0.70-1.30) H 11/30/18 03:30 Est GFR ( Amer) 34 (> 60) L 11/30/18 03:30 Est GFR (Non-Af Amer) 28 (> 60) L 11/30/18 03:30 Glucose 118 mg/dL (70-105) H 11/30/18 03:30 POC Glucose 151 mg/dL (70-99) H 11/30/18 15:07 6.6 % (-5.6) H 11/28/18 00:29 279 (280-300) L 11/27/18 22:48 Lactic Acid 0.4 mmol/L (0.5-2.2) L 11/28/18 Unknown Calcium 8.5 mg/dL (8.6-10.3) L 11/30/18 03:30 Phosphorus 5.9 mg/dL (2.7-4.5) H 11/30/18 03:30 Magnesium 2.7 mg/dL (1.6-2.6) H 11/27/18 22:48 0.04 ng/mL (< 0.04) H* 11/28/18 Unknown 3.0 g/dL (3.5-5.7) L 11/27/18 22:48 4.5 g/dL (2.4-3.5) H 11/27/18 22:48 0.7 (1.1-2.2) L 11/27/18 22:48 0.35 ng/mL (0.00-0.15) H 11/29/18 03:45 Turbid (Clear) A 11/27/18 18:24 Ur Specific [place] 1.026 (1.010-1.025) H 11/27/18 18:24 >=300 mg/dL (Neg-Trace) H 11/27/18 18:24 100 mg/dL (Normal) H 11/27/18 18:24 Large (Negative) H 11/27/18 18:24 Small (Negative) H 11/27/18 18:24 Ur Leukocyte Esterase Large (Negative) H 11/27/18 18:24 TNTC per hpf (0-3) H 11/27/18 18:24 TNTC per hpf (0-3) H 11/27/18 18:24 Ur Squamous Epith Cells Many per lpf (None-Few) H 11/27/18 18:24 Few per hpf (None Seen) H 11/27/18 18:24 Ur Culture Indicated? YES (NO) A 11/27/18 18:24 Positive (Negative) A 11/28/18 11:55 Vancomycin Trough 22 mcg/mL (5-10) H 11/29/18 19:10 - Microbiology Findings Microbiology Findings: Microbiology, Last 48 Hours 11/28/18 11:55 Sputum Culture - Preliminary Trachea Corynebacterium striatum Gram Negative Matt 11/27/18 18:24 Urine Culture - Preliminary Urine,[place] Providencia stuartii Gram Positive Cocci - Clinical Findings Intake & Output: Intake & Output 11/30/18 11/30/18 11/30/18 07:59 15:59 23:59 Intake Total 100 / 340 240 / 340 Output Total 600 / 1700 1100 / 1700 Balance -500 / -1360 -860 / -1360 Weight 159.6 kg - Attending Attestation I examined this patient and my medical decision-making was reviewed with the Resident Physician. I agree with the documented findings, disposition and treatment plan as described except to the extent set forth below. Patient seen and examined. Labs, radiology, chart personally reviewed. 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 Pulmonary: Acceptable oxygenation and ventilation, however he still requiring noninvasive ventilation and we will attempt diuresis and transition him to mask or nasal cannula. Continue incentive spirometry. Cardiovascular: stable and cardiology follow-up. GI: Nutrition per dietary and GI prophylaxis per routine Heme: DVT prophylaxis per routine ID: Continue antibiotics and plan to de-escalation Renal; urine out put and renal funtion reviewed Endorcine: blood glucose is monitored Lines: all lines checked and no evidence of infections Skin: skin care to prevent pressure ulcers per nursing routine care Patient is stable to be transferred to the floor. Overall prognosis of this patient is poor.
--- NOTE | 2018-11-30 10:50 | Cardiology Progress Note ---
Date of Encounter: 11/30/18 Time of Encounter: 10:00 Assessment and Plan (1) Respiratory arrest before cardiac arrest Current Visit: Yes Status: Acute Per cardiology: -Unconscious when EMS arrived at [facility], bradycardic with O2 in 80's. Per ED report, patient had a pulse and detectable rhythm on arrival, then coded. ROSC was achieved after 1 round CPR and 1 dose epinephrine. Found to be hyperkalemic (7, then 7.2). K 6.3 this AM. Management per primary team. -Troponin 0.04 x 3. TTE completed--LVEF 50%. Mild segmental left ventricular systolic dysfunction. Moderate with mild-moderate AR. -ECG after arrival appears to be accelerated idioventricular, then repeat ECG improved and comparable to prior (inferior infarct). -ICD interrogated (Hx NICMP) --met JJ 02/2018. Last NSVT noted was 11/15, but unclear if device is still sensing or able to deliver therapies. -Recommend ICD generator change prior to discharge once clinically improved. (2) CHF (congestive heart failure) Current Visit: No Status: Chronic Per cardiology: -Known NICM, TTE this admission with LVEF 50%. Mild segmental left ventricular systolic dysfunction. -Volume overloaded on exam. Now with JENN, nephrology following. -Started on IV lasix daily. -Will add BB. NO celestina/arb due to renal function. -Strict i/os, fluid restriction, daily weights. -Agree with cautious diuresis, monitor renal function. Qualifiers: Heart failure type: diastolic Heart failure chronicity: acute on chronic Qualified Code(s): I50.33 - Acute on chronic diastolic (congestive) heart failure (3) Elevated troponin Current Visit: No Status: Acute Per cardiology: -Troponin 0.04, 0.04, 0.04--borderline in setting of arrest, JENN, hyperkalemia and PNA vs pulmonary edema with Complete opacification of the left hemithorax on CXR. -Demand ischemia, nondiagnostic for ACS. Cardiac rehab not warranted. Discussion w patient/family: The assessment and plan as outlined above was discussed with the patient who expressed understanding and agreement. All questions were answered. Thank you for involving us in the care of your patient. Please call with any questions. Discussed and reviewed with . Subjective Principal diagnosis: Arrest Interval history: Patient is extubated. Denies chest pain. States respiratory status is "ok" today. Objective Vital Signs, Last 4 Hours Temp Pulse Resp BP Pulse Ox 11/30/18 10:00 83 18 165/67 96 11/30/18 09:00 87 18 162/77 96 11/30/18 08:00 82 18 166/83 96 11/30/18 07:39 93 11/30/18 07:35 97.9 F 11/30/18 07:00 84 16 163/79 96 General: Conversant, Other (Mild conversational dyspnea noted. ) HEENT: Atraumatic, Normocephaly, Mucus Membranes Moist Neck: No JVD, Normal carotid pulses Cardiac: Reg Rate and Rhythm, Normal S1 and S2, No Murmur Lungs: Other (Lung sounds coarse throughout. ) Neuro: Alert and responsive, No focal deficits noted Abdomen: Soft, Non-Tender Skin: No rashes noted on visualized skin Musculoskeletal: No Chest Wall Tenderness Extremities: No Clubbing, No Cyanosis, Normal Pulses, Other (1+ bilateral lower extremity pitting edema noted. ) Results 11/30/18 03:30 11/30/18 03:30 Lab Results Impressions KUB X-Ray 11/27/18 00:00 IMPRESSION: Enteric tube with tip in the gastric body and proximal side-port in the proximal gastric fundus. D/ / 11/27/2018 16:39:16 Diego Harper MD / faraz Interpreting Provider: Diego Harper MD Chest X-Ray 11/27/18 15:41 IMPRESSION: 1. Satisfactory position of support devices. 2. Extensive airspace disease in the left mid lung and left lung base. Left pleural effusion is suspected. 3. Pulmonary vascular indistinctness in the right lung. Findings could be due to pulmonary edema superimposed. D/ / 11/27/2018 16:38:17 Diego Harper MD / faraz Interpreting Provider: Diego Harper MD Active Medications Acetaminophen (Tylenol) 650 mg PO Q6HR PRN PRN Reason: Mild Pain/Fever Stop: 05/29/19 20:41 Artificial Tears (Akwa Tears) 1 drop BOTH EYES Q2HR PRN; Protocol PRN Reason: Dry Eyes Stop: 05/29/19 20:41 Dextrose/Water (Dextrose 50% (Syg)) 25 ml IVP AD PRN PRN Reason: Hypoglycemia Stop: 05/29/19 22:54 Last Admin: 11/27/18 23:15 Dose: 25 ml Documented by: Furosemide (Lasix) 40 mg IVP DAILY [facility] Stop: 06/01/19 09:01 Last Admin: 11/30/18 08:19 Dose: 40 mg Documented by: Glucagon (Glucagen) 1 mg IM ONCE PRN PRN Reason: Hypoglycemia Stop: 05/29/19 22:54 Glucose (Gluctose) 15 gm PO ONCE PRN PRN Reason: Hypoglycemia Stop: 05/29/19 22:54 Glucose (Gluctose) 30 gm PO ONCE PRN PRN Reason: Hypoglycemia Stop: 05/29/19 22:54 Heparin Sodium (Porcine) (Heparin) 5,000 unit SQ Q8HCO [facility] Stop: 05/29/19 22:01 Last Admin: 11/30/18 05:37 Dose: 5,000 unit Documented by: Hydrocortisone Sodium Succinate (Solu-Cortef) 100 mg IVP Q8H [facility] Stop: 05/30/19 04:01 Last Admin: 11/30/18 03:27 Dose: 100 mg Documented by: Piperacillin Sod/Tazobactam (Sod 3.375 gm/ Sodium Chloride) 100 mls @ 25 mls/hr IVPB Q8HR [facility] Stop: 05/30/19 08:01 Last Admin: 11/30/18 08:20 Dose: 25 mls/hr Documented by: Dextrose (Dextrose 5%) 1,000 mls @ 100 mls/hr IVC .Q10H PRN PRN Reason: HYPOGLYCEMIA Stop: 05/29/19 22:54 Insulin Human Lispro (Humalog) 0 units SQ Q6HR [facility]; Protocol Stop: 05/30/19 00:01 Last Admin: 11/30/18 05:47 Dose: Not Given Documented by: Ketoconazole (Nizoral Cream) 1 appl TP BID [facility] Stop: 05/30/19 09:01 Last Admin: 11/30/18 08:21 Dose: 1 appl Documented by: Naloxone HCl (Narcan) 0.4 mg IVP Q2MPRN PRN PRN Reason: SEE COMMENTS Stop: 05/29/19 20:41 Pantoprazole Sodium (Protonix) 40 mg IVP DAILY [facility] Stop: 05/30/19 10:01 Last Admin: 11/30/18 08:20 Dose: 40 mg Documented by: Laboratory Tests 11/27/18 11/29/18 11/30/18 22:48 03:45 03:30 Hgb 7.9 L D 8.1 L Creatinine 2.53 H 11/30/18 03:30 Hgb Creatinine 2.36 H - Imaging and Cardiology Chest Xray: report reviewed Echo: report reviewed Consult Discharge Plan - Plan Referrals: Ander Blankenship MD [Primary Care Provider] -
[2018-11-30] MEDS ORDERED: D5% in Water 1,000 ML IVC PRN (12:23)
[2018-11-30] MEDS ORDERED: Dextrose Gel 15 GM/37.5 ML TUBE PO PRN ×2 (12:23)
[2018-11-30] MEDS ORDERED: Artificial Tears SOLN 15 ML BOTTLE BOTH EYES PRN (12:23)
[2018-11-30] MEDS ORDERED: *HR* Dextrose 50 % in Water (Syg) 50 ML SYRINGE IVP PRN (12:23)
[2018-11-30] MEDS ORDERED: Naloxone 0.4 MG/ML INJ IVP PRN (12:23)
[2018-11-30] MEDS ORDERED: Insulin LISPRO 300 UNITS/3 ML VIAL SQ SCH (18:00)
--- NOTE | 2018-11-30 22:23 | Nephrology Progress Note ---
Date of Encounter: 11/30/18 Time of Encounter: 12:00 - Assessment and Plan (1) JENN (acute kidney injury) Current Visit: Yes Status: Acute SCr currently at 2.36, GFR 28 UOP noted at 1725cc in the past 24hrs Continue to avoid nephrotoxins if possible (2) Hyperkalemia Current Visit: Yes Status: Acute Resolved at 4.0, will monitor Renal diet when able to eat advised (3) Cardiac arrest with successful resuscitation Current Visit: Yes Status: Acute per primary and cardiology (4) Respiratory arrest before cardiac arrest Current Visit: Yes Status: Acute per primary (5) Sepsis Current Visit: Yes Status: Suspected per primary Qualifiers: Sepsis type: sepsis due to unspecified organism Qualified Code(s): A41.9 - Sepsis, unspecified organism Subjective Principal diagnosis: Arrest Interval history: Pt seen and examined extubated and doing well Objective - Vital Signs Vital signs: Vital Signs Temp Pulse Resp BP Pulse Ox 11/30/18 21:41 14 124/103 99 11/30/18 21:00 75 16 124/103 99 11/30/18 20:30 81 11/30/18 20:00 82 18 122/78 92 11/30/18 19:59 98.3 F 11/30/18 19:00 84 18 97/78 93 11/30/18 17:00 82 18 166/78 94 11/30/18 15:18 93 11/30/18 15:13 97.7 F 11/30/18 13:00 82 18 144/76 94 11/30/18 12:07 98.1 F 11/30/18 12:00 93 11/30/18 10:00 83 18 165/67 96 11/30/18 09:00 87 18 162/77 96 11/30/18 08:00 82 18 166/83 96 11/30/18 07:39 93 11/30/18 07:35 97.9 F 11/30/18 07:00 84 16 163/79 96 11/30/18 06:00 82 15 161/81 97 11/30/18 05:00 82 15 158/84 97 11/30/18 03:20 93 11/30/18 03:06 15 97 11/30/18 03:00 83 15 149/77 97 11/30/18 02:00 84 18 153/81 93 11/30/18 01:00 87 21 157/81 97 11/30/18 00:00 88 21 151/84 97 11/29/18 23:26 21 97 11/29/18 23:23 88 11/29/18 23:00 98.3 F 85 28 160/86 96 Intake and Output 11/30/18 11/30/18 11/30/18 07:59 15:59 23:59 Intake Total 100 / 440 240 / 440 100 / 440 Output Total 600 / 2100 1100 / 2100 400 / 2100 Balance -500 / -1660 -860 / -1660 -300 / -1660 Intake: IV Fluids 100 / 200 100 / 200 Zosyn 3.375 GM In 0.9 % Sodium 100 / 200 100 / 200 Chloride (Mini-Bag +) 100 ML @ 25 mls/hr IVPB Q8HR [facility] Rx#: [id number] Oral 240 / 240 Output: Catheter 600 / 2100 1100 / 2100 400 / 2100 Other: Meal Lunch Percent of Meal Consumed 100% Stool Size Large Moderate Stool Consistency soft Stool Characteristics Pasty Stool Color Brown # Bowel Movements 1 Weight 159.6 kg Blood Glucose* 151 137 Patient Weight 11/30/18 23:59 Weight 159.6 kg - General Appearance General appearance: Present: chronically ill (NAD) EENT: Present: ATNC, mucous membranes moist Neck: Present: no JVD, supple Respiratory: Present: course breath sounds Cardiology: Present: no edema, normal S1, normal S2 Gastrointestinal: Present: no tenderness, no guarding Integumentary: Present: warm and dry Neurologic: Present: no focal deficit Musculoskeletal: Present: no deformities Psychiatric: Present: mood/affect appropriate - Lab 11/30/18 03:30 11/30/18 03:30 Consult Discharge Plan - Plan Referrals: Ander Blankenship MD [Primary Care Provider] -
[2018-12-01] MEDS: Piperacillin/Tazobactam 3.375 GM in 0.9 % Sodium Chloride Mini Bag 100 ML IVPB SCH ×4 (00:01→23:42)
[2018-12-01] MEDS: Hydrocortisone Sodium Succ 100 MG/2 ML VIAL IVP SCH (03:24)
[2018-12-01 04:59] LABS: Basophils % 0.6 %; Hematocrit 26.7 % (37.5-50.1); Hemoglobin 8.1 g/dL (12.9-16.9); Immature Granulocytes % 1.1 % (0-4); Lymphocytes # 1.1 K/mcL (0.6-4.6); Mean Corpuscular HGB Conc 30.3 g/dL (31.6-35.5); Mean Corpuscular Hemoglobin 25.6 pg (28.0-33.3); Mean Corpuscular Volume 84.2 fL (83.0-100.0); Mean Platelet Volume 10.3 fL (9.4-12.4); Monocytes # 0.5 K/mcL (0.0-1.3); Monocytes % 9.3 %; Neutrophils # 3.6 K/mcL (1.6-8.9); Platelet Count 207 K/mcL (140-400); Red Blood Count 3.17 M/mcL (4.19-5.50); Red Cell Distribution Width 17.1 % (11.5-14.5)
[2018-12-01 05:23] LABS: Magnesium 2.4 mg/dL (1.6-2.6); Troponin I 0.04 ng/mL (< 0.04)
[2018-12-01] MEDS: *HR* Heparin 5,000 UNIT/ML VIAL SQ SCH ×3 (05:33→21:32)
--- NOTE | 2018-12-01 05:36 | Event Note ---
Date of Encounter: 12/01/18 Time of Encounter: 05:31 Throughout the night had many episodes of irregular rhythm. He has a pacemaker but the telemetry was not showing paced rhythm. Potassium was noted to be low and has been replaced. Would benefit from further pacemaker evaluation by cardiology.
[2018-12-01] MEDS: Insulin LISPRO 300 UNITS/3 ML VIAL SQ SCH ×4 (07:36→21:32)
[2018-12-01] MEDS: Furosemide 40 MG/4 ML VIAL IVP SCH (07:42)
[2018-12-01] MEDS: Pantoprazole 40 MG VIAL IVP SCH (07:43)
[2018-12-01] MEDS: Ketoconazole 2% CRM 15 GM TUBE TP SCH ×2 (07:44→21:32)
--- NOTE | 2018-12-01 09:26 | Electrocardiograph Report ---
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
--- NOTE | 2018-12-01 10:15 | Cardiology Progress Note ---
Date of Encounter: 12/01/18 Time of Encounter: 08:30 Assessment and Plan (1) Respiratory arrest before cardiac arrest Current Visit: Yes Status: Acute Per cardiology: -Unconscious when EMS arrived [facility], bradycardic with O2 in 80's. Per ED report, patient had a pulse and detectable rhythm on arrival, then coded. ROSC was achieved after 1 round CPR and 1 dose epinephrine. Found to be hyperkalemic (7, then 7.2). K 6.3 this AM. Management per primary team. -Troponin 0.04 x 3. TTE completed--LVEF 50%. Mild segmental left ventricular systolic dysfunction. Moderate with mild-moderate AR. -ECG after arrival appears to be accelerated idioventricular, then repeat ECG improved and comparable to prior (inferior infarct). -ICD interrogated (Hx NICMP) --met JJ 02/2018. Last NSVT noted was 11/15, but unclear if device is still sensing or able to deliver therapies. -Recommend ICD generator change prior to discharge once clinically improved. Intermittent wide QRS noted on telemetry. Telemetry strips reviewed with possible idioventricular rhythm vs sinus rhythm with abberency. No VT noted. (2) CHF (congestive heart failure) Current Visit: No Status: Chronic Per cardiology: -Known NICM, TTE this admission with LVEF 50%. Mild segmental left ventricular systolic dysfunction. -Volume overloaded on exam. Now with JENN, nephrology following. -On IV lasix, remains with net positive I/os. Being cautiously diuresed due to JENN. -On BB. NO celestina/arb due to renal function. -Strict i/os, fluid restriction, daily weights. -Agree with cautious diuresis, monitor renal function. Qualifiers: Qualified Code(s): I50.33 - Acute on chronic diastolic (congestive) heart failure (3) Elevated troponin Current Visit: No Status: Acute Per cardiology: -Troponin 0.04, 0.04, 0.04--borderline in setting of arrest, JENN, hyperkalemia and PNA vs pulmonary edema with Complete opacification of the left hemithorax on CXR. -Demand ischemia, nondiagnostic for ACS. Cardiac rehab not warranted. Discussion w patient/family: The assessment and plan as outlined above was discussed with the patient who expressed understanding and agreement. All questions were answered. Thank you for involving us in the care of your patient. Please call with any questions. Discussed and reviewed with Subjective Principal diagnosis: Arrest Interval history: Patient laying in bed today. States respiratory status is improved, however still requireing high flow O2. Unable to lay flat. Objective Vital Signs, Last 4 Hours Temp Pulse Resp BP Pulse Ox 12/01/18 10:00 90 20 131/78 94 12/01/18 09:00 90 22 143/70 95 12/01/18 08:00 87 17 159/85 92 12/01/18 07:25 98 F 12/01/18 07:00 86 21 160/83 95 General: Conversant, No Apparent Distress HEENT: Atraumatic, Normocephaly, Mucus Membranes Moist Neck: No JVD, Normal carotid pulses Cardiac: Reg Rate and Rhythm, Normal S1 and S2, No Murmur Lungs: Other (Lung sounds diminished throughout. ) Neuro: Alert and responsive, No focal deficits noted Abdomen: Soft, Non-Tender Skin: No rashes noted on visualized skin Musculoskeletal: No Chest Wall Tenderness Extremities: No Clubbing, No Cyanosis, Normal Pulses, Other (Moderate lower extremity edema noted, non-pitting. ) Results 12/01/18 04:40 12/01/18 04:40 Lab Results Active Medications Acetaminophen (Tylenol) 650 mg PO Q6HR PRN PRN Reason: Mild Pain/Fever Stop: 05/29/19 20:41 Artificial Tears (Akwa Tears) 1 drop BOTH EYES Q2HR PRN; Protocol PRN Reason: Dry Eyes Stop: 05/29/19 20:41 Carvedilol (Coreg) 3.125 mg PO BIDWM [facility]; Protocol Stop: 06/01/19 17:01 Last Admin: 12/01/18 07:43 Dose: 3.125 mg Documented by: Dextrose/Water (Dextrose 50% (Syg)) 25 ml IVP AD PRN PRN Reason: Hypoglycemia Stop: 05/29/19 22:54 Furosemide (Lasix) 40 mg IVP DAILY [facility] Stop: 06/01/19 09:01 Last Admin: 12/01/18 07:42 Dose: 40 mg Documented by: Glucagon (Glucagen) 1 mg IM ONCE PRN PRN Reason: Hypoglycemia Stop: 05/29/19 22:54 Glucose (Gluctose) 15 gm PO ONCE PRN PRN Reason: Hypoglycemia Stop: 05/29/19 22:54 Glucose (Gluctose) 30 gm PO ONCE PRN PRN Reason: Hypoglycemia Stop: 05/29/19 22:54 Heparin Sodium (Porcine) (Heparin) 5,000 unit SQ Q8HCO [facility] Stop: 05/29/19 22:01 Last Admin: 12/01/18 05:33 Dose: 5,000 unit Documented by: Hydrocortisone Sodium Succinate (Solu-Cortef) 100 mg IVP Q8H [facility] Stop: 05/30/19 04:01 Last Admin: 12/01/18 03:24 Dose: 100 mg Documented by: Dextrose (Dextrose 5%) 1,000 mls @ 100 mls/hr IVC .Q10H PRN PRN Reason: HYPOGLYCEMIA Stop: 05/29/19 22:54 Piperacillin Sod/Tazobactam (Sod 3.375 gm/ Sodium Chloride) 100 mls @ 25 mls/hr IVPB Q8HR [facility] Stop: 05/30/19 08:01 Last Admin: 12/01/18 07:43 Dose: 25 mls/hr Documented by: Insulin Human Lispro (Humalog) 0 units SQ HS [facility]; Protocol Stop: 06/01/19 21:01 Last Admin: 11/30/18 20:26 Dose: Not Given Documented by: Insulin Human Lispro (Humalog) 0 units SQ TIDAC [facility]; Protocol Stop: 06/01/19 16:31 Last Admin: 12/01/18 07:36 Dose: Not Given Documented by: Ketoconazole (Nizoral Cream) 1 appl TP BID [facility] Stop: 05/30/19 09:01 Last Admin: 12/01/18 07:44 Dose: 1 appl Documented by: Naloxone HCl (Narcan) 0.4 mg IVP Q2MPRN PRN PRN Reason: SEE COMMENTS Stop: 05/29/19 20:41 Pantoprazole Sodium (Protonix) 40 mg IVP DAILY [facility] Stop: 05/30/19 10:01 Last Admin: 12/01/18 07:43 Dose: 40 mg Documented by: Laboratory Tests 11/30/18 12/01/18 12/01/18 03:30 04:40 04:40 Hgb 8.1 L Creatinine 2.36 H 2.10 H - Imaging and Cardiology Chest Xray: report reviewed Echo: report reviewed Consult Discharge Plan - Plan Referrals: Ander Blankenship MD [Primary Care Provider] -
--- NOTE | 2018-12-01 10:33 | Pulmonology Progress Note ---
<Vishnu Gonzales - Last Filed: 12/01/18 10:28> Date of Encounter: 12/01/18 Time of Encounter: 07:00 Assessment and Plan (1) Anoxic brain injury Current Visit: Yes Status: Suspected -Likely anoxic brain injury 2/2 resp arrest at home facility -Completed hypothermia protocol 11/28/18 s/p cardiac arrest -Continues to progress with cognition but remains with generalized weakness post extubation -Neuro on board -EEG 11/28/18: Consistent with severe generalized encephalopathy -PT/OT today -Increased time out of bed as tolerated (2) Respiratory arrest before cardiac arrest Current Visit: Yes Status: Acute -Resp arrest prior to arrival to hosp requiring bvm vent and intubated upon arrival -Initial ABG pH 7.3, pCO2 48, pO2 190, 100% on 100% FiO2 -CXR 11/29/18: Improved aeration of L lung with persistent L basilar atelectesis vs pneumonia, pulm edema -CXR improved from complete L hemithorax opacification -Extubated 11/29/18 to BiPAP -Continues to require BiPAP at night -Continue to wean supplemental O2 as tolerated -Continue to encourage time out of bed and eventual ambulation after PT/OT eval (3) Cardiac arrest with successful resuscitation Current Visit: Yes Status: Acute -CPR initiated in ED with ROSC acheived after 1 round CPR and 1 dose epi -Initial trop <0.03 with repeat x3 adynamic at 0.04 -Cards consulted in ED with no plans for cath intervention -Cards plan to exchange icd as past due and not functioning correctly now as outpatient when able to tolerate laying flat in [employer] (4) Sepsis Current Visit: Yes Status: Suspected -Suspected sepsis on arrival and started on empiric treatment -L hemithorax complete opacification on cxr pneumonia vs effusion -Bedside US without evidence of fluid collection able to be targeted with thoracentesis -Vanc, levofloxacin, and ceftriaxone stopped 11/30/18 -Continue zosyn (day 5) for total 7-10 days -BC x2 11/27/18 pending -Urine culture 11/27/18 with growth of E faecalis and P stuartii -Sputum culture 11/28/18 with growth of corynebacterium and psuedomonas. Corynebacterium likely contaminant during obtaining sample -Vitals stable -MRSA swab pos Qualifiers: Sepsis type: sepsis due to unspecified organism Qualified Code(s): A41.9 - Sepsis, unspecified organism (5) JENN (acute kidney injury) Current Visit: Yes Status: Acute -Likely 2/2 hypoperfusion post cardiac arrest in the setting of suspected sepsis -Baseline Cr ~1.2 -Cr peak 2.53 -Cr trending down, 2.10 today -On day 5 zosyn -Uop 2100ml 24 hrs -Neph on board (6) Hyperkalemia Current Visit: Yes Status: Acute -K on arrival 7, increased to 7.2 in ED -Received kayexalate, D50, Ca gluconate, and insulin in ED -Had BM yesterday after additional 60 kayexalate given -K 3, Mg 2.4 today, K repleted -Neph following (7) Diabetes Current Visit: Yes Status: Chronic -SSI and accuchek Qualifiers: Diabetes mellitus type: type 2 Diabetes mellitus usp insulin use: with usp use Diabetes mellitus complication status: with hyperglycemia Qualified Code(s): E11.65 - Type 2 diabetes mellitus with hyperglycemia; Z79.4 - nursing home (current) use of insulin; Z79.4 - nursing home (current) use of insulin; Z79.4 - nursing home (current) use of insulin; Z79.4 - nursing home (current) use of insulin (8) CHF (congestive heart failure) Current Visit: No Status: Chronic -Hx of systolic and diastolic heart failure -TTE 11/28/18: EF 50%, mild LV systolic dysfunction, mild lv dilation with concentric hypertrophy, mild lv diastolic dysfunction with hypokinesis, mod mod PH -Pos 4L fluid balance since admission -Continue BB and hold acei/arb for current JENN -Gentle diuresis with lasix given renal function Qualifiers: Heart failure type: diastolic Heart failure chronicity: acute on chronic Qualified Code(s): I50.33 - Acute on chronic diastolic (congestive) heart failure (9) DVT prophylaxis Current Visit: No Status: Acute -Chemical Subjective Principal diagnosis: Anoxic Brain Injury post cardiopulm arrest Interval history: Reported to have runs of vtach overnight. Tolerates BiPAP overnight. Objective PUL Vital signs: Last Vital Signs Temp 98 F 12/01/18 07:25 Pulse 90 12/01/18 10:00 Resp 20 12/01/18 10:00 BP 131/78 12/01/18 10:00 Pulse Ox 94 12/01/18 10:00 General appearance: no acute distress, alert, lethargic, other (BiPAP in place) Eyes: nonicteric ENT: oropharynx dry Effort: normal Auscultation: bilateral: diminished breath sounds, other (scattered course breath sounds ) Cardiovascular: regular rate and rhythm Gastrointestinal: hypoactive bowel sounds, soft, non-tender, non-distended Integumentary: normal Extremities: no cyanosis, no clubbing, pink and warm, pulses normal, edema normal mental status, non-focal exam, pupils equal and round, CN II-XII normal mood appropriate, affect normal Results - Laboratory Findings CBC and BMP: 12/01/18 04:40 12/01/18 04:40 ABG ABG pH 7.31 pH Units (7.32-7.45) L 11/29/18 05:07 ABG pCO2 43 mmHg (35-45) 11/29/18 05:07 ABG pO2 87 mmHg (85-104) 11/29/18 05:07 ABG O2 Saturation 96 % (95-98) 11/29/18 05:07 PT/INR, D-dimer PT 13.2 Seconds (9.4-12.1) H 11/27/18 15:25 Abnormal lab findings: Abnormal lab results RBC 3.17 M/mcL (4.19-5.50) L 12/01/18 04:40 Hgb 8.1 g/dL (12.9-16.9) L 12/01/18 04:40 Hct 26.7 % (37.5-50.1) L 12/01/18 04:40 MCH 25.6 pg (28.0-33.3) L 12/01/18 04:40 MCHC 30.3 g/dL (31.6-35.5) L 12/01/18 04:40 RDW 17.1 % (11.5-14.5) H 12/01/18 04:40 PT 13.2 Seconds (9.4-12.1) H 11/27/18 15:25 601 mg/dL (169-393) H 11/27/18 22:48 ABG pH 7.31 pH Units (7.32-7.45) L 11/29/18 05:07 ABG pCO2 48 mmHg (35-45) H 11/27/18 23:31 ABG pO2 80 mmHg (85-104) L 11/28/18 05:10 ABG O2 Saturation 90 % (95-98) L 11/28/18 01:04 ABG Base Excess -5 mEq/L (-2 to 3) L 11/29/18 05:07 Sodium 133 mEq/L (136-145) L 11/29/18 03:45 Potassium 3.0 mEq/L (3.5-5.1) L 12/01/18 04:40 Chloride 109 mEq/L (98-107) H 12/01/18 04:40 Carbon Dioxide 21 mEq/L (23-29) L 11/30/18 03:30 BUN 43 mg/dL (8-23) H 12/01/18 04:40 2.10 mg/dL (0.70-1.30) H 12/01/18 04:40 Est GFR ( Amer) 38 (> 60) L 12/01/18 04:40 Est GFR (Non-Af Amer) 32 (> 60) L 12/01/18 04:40 Glucose 139 mg/dL (70-105) H 12/01/18 04:40 POC Glucose 135 mg/dL (70-99) H 12/01/18 07:28 6.6 % (-5.6) H 11/28/18 00:29 305 (280-300) H 12/01/18 04:40 Lactic Acid 0.4 mmol/L (0.5-2.2) L 11/28/18 Unknown Calcium 8.0 mg/dL (8.6-10.3) L 12/01/18 04:40 Phosphorus 5.9 mg/dL (2.7-4.5) H 11/30/18 03:30 Magnesium 2.7 mg/dL (1.6-2.6) H 11/27/18 22:48 0.04 ng/mL (< 0.04) H* 12/01/18 04:40 3.0 g/dL (3.5-5.7) L 11/27/18 22:48 4.5 g/dL (2.4-3.5) H 11/27/18 22:48 0.7 (1.1-2.2) L 11/27/18 22:48 0.35 ng/mL (0.00-0.15) H 11/29/18 03:45 Turbid (Clear) A 11/27/18 18:24 Ur Specific [place] 1.026 (1.010-1.025) H 11/27/18 18:24 >=300 mg/dL (Neg-Trace) H 11/27/18 18:24 100 mg/dL (Normal) H 11/27/18 18:24 Large (Negative) H 11/27/18 18:24 Small (Negative) H 11/27/18 18:24 Ur Leukocyte Esterase Large (Negative) H 11/27/18 18:24 TNTC per hpf (0-3) H 11/27/18 18:24 TNTC per hpf (0-3) H 11/27/18 18:24 Ur Squamous Epith Cells Many per lpf (None-Few) H 11/27/18 18:24 Few per hpf (None Seen) H 11/27/18 18:24 Ur Culture Indicated? YES (NO) A 11/27/18 18:24 Positive (Negative) A 11/28/18 11:55 Vancomycin Trough 22 mcg/mL (5-10) H 11/29/18 19:10 - Microbiology Findings Microbiology Findings: Microbiology, Last 48 Hours 11/28/18 11:55 Sputum Culture - Final Trachea Corynebacterium striatum Pseudomonas aeruginosa 11/27/18 18:24 Urine Culture - Preliminary Urine,[place] Providencia stuartii Gram Positive Cocci - Clinical Findings Intake & Output: Intake & Output 11/30/18 12/01/18 12/01/18 23:59 07:59 15:59 Intake Total 100 / 440 200 / 200 Output Total 400 / 2100 975 / 975 Balance -300 / -1660 -775 / -775 Weight 152.3 kg Consult Discharge Plan - Plan Referrals: Ander Blankenship MD [Primary Care Provider] - <Sera Medina - Last Filed: 12/01/18 22:18> Date of Encounter: 12/01/18 Objective PUL Vital signs: Last Vital Signs Temp 98.0 F 12/01/18 19:50 Pulse 83 12/01/18 20:00 Resp 16 12/01/18 20:07 BP 133/63 12/01/18 20:07 Pulse Ox 95 12/01/18 20:07 Results - Laboratory Findings CBC and BMP: 12/01/18 04:40 12/01/18 04:40 ABG ABG pH 7.31 pH Units (7.32-7.45) L 11/29/18 05:07 ABG pCO2 43 mmHg (35-45) 11/29/18 05:07 ABG pO2 87 mmHg (85-104) 11/29/18 05:07 ABG O2 Saturation 96 % (95-98) 11/29/18 05:07 PT/INR, D-dimer PT 13.2 Seconds (9.4-12.1) H 11/27/18 15:25 Abnormal lab findings: Abnormal lab results RBC 3.17 M/mcL (4.19-5.50) L 12/01/18 04:40 Hgb 8.1 g/dL (12.9-16.9) L 12/01/18 04:40 Hct 26.7 % (37.5-50.1) L 12/01/18 04:40 MCH 25.6 pg (28.0-33.3) L 12/01/18 04:40 MCHC 30.3 g/dL (31.6-35.5) L 12/01/18 04:40 RDW 17.1 % (11.5-14.5) H 12/01/18 04:40 PT 13.2 Seconds (9.4-12.1) H 11/27/18 15:25 601 mg/dL (169-393) H 11/27/18 22:48 ABG pH 7.31 pH Units (7.32-7.45) L 11/29/18 05:07 ABG pCO2 48 mmHg (35-45) H 11/27/18 23:31 ABG pO2 80 mmHg (85-104) L 11/28/18 05:10 ABG O2 Saturation 90 % (95-98) L 11/28/18 01:04 ABG Base Excess -5 mEq/L (-2 to 3) L 11/29/18 05:07 Sodium 133 mEq/L (136-145) L 11/29/18 03:45 Potassium 3.0 mEq/L (3.5-5.1) L 12/01/18 04:40 Chloride 109 mEq/L (98-107) H 12/01/18 04:40 Carbon Dioxide 21 mEq/L (23-29) L 11/30/18 03:30 BUN 43 mg/dL (8-23) H 12/01/18 04:40 2.10 mg/dL (0.70-1.30) H 12/01/18 04:40 Est GFR ( Amer) 38 (> 60) L 12/01/18 04:40 Est GFR (Non-Af Amer) 32 (> 60) L 12/01/18 04:40 Glucose 139 mg/dL (70-105) H 12/01/18 04:40 POC Glucose 167 mg/dL (70-99) H 12/01/18 19:06 6.6 % (-5.6) H 11/28/18 00:29 305 (280-300) H 12/01/18 04:40 Lactic Acid 0.4 mmol/L (0.5-2.2) L 11/28/18 Unknown Calcium 8.0 mg/dL (8.6-10.3) L 12/01/18 04:40 Phosphorus 5.9 mg/dL (2.7-4.5) H 11/30/18 03:30 Magnesium 2.7 mg/dL (1.6-2.6) H 11/27/18 22:48 0.04 ng/mL (< 0.04) H* 12/01/18 04:40 3.0 g/dL (3.5-5.7) L 11/27/18 22:48 4.5 g/dL (2.4-3.5) H 11/27/18 22:48 0.7 (1.1-2.2) L 11/27/18 22:48 0.35 ng/mL (0.00-0.15) H 11/29/18 03:45 Turbid (Clear) A 11/27/18 18:24 Ur Specific [place] 1.026 (1.010-1.025) H 11/27/18 18:24 >=300 mg/dL (Neg-Trace) H 11/27/18 18:24 100 mg/dL (Normal) H 11/27/18 18:24 Large (Negative) H 11/27/18 18:24 Small (Negative) H 11/27/18 18:24 Ur Leukocyte Esterase Large (Negative) H 11/27/18 18:24 TNTC per hpf (0-3) H 11/27/18 18:24 TNTC per hpf (0-3) H 11/27/18 18:24 Ur Squamous Epith Cells Many per lpf (None-Few) H 11/27/18 18:24 Few per hpf (None Seen) H 11/27/18 18:24 Ur Culture Indicated? YES (NO) A 11/27/18 18:24 Positive (Negative) A 11/28/18 11:55 Vancomycin Trough 22 mcg/mL (5-10) H 11/29/18 19:10 - Microbiology Findings Microbiology Findings: Microbiology, Last 48 Hours 11/27/18 18:24 Urine Culture - Final Urine,[place] Providencia stuartii Enterococcus faecalis 11/28/18 11:55 Sputum Culture - Final Trachea Corynebacterium striatum Pseudomonas aeruginosa - Clinical Findings Intake & Output: Intake & Output 12/01/18 12/01/18 12/01/18 07:59 15:59 23:59 Intake Total 200 / 500 200 / 500 100 / 500 Output Total 975 / 1575 400 / 1575 200 / 1575 Balance -775 / -1075 -200 / -1075 -100 / -1075 Weight 152.3 kg - Attending Attestation I examined this patient and my medical decision-making was reviewed with the Resident Physician. I agree with the documented findings, disposition and treatment plan as described except to the extent set forth below. Patient seen and examined. Labs, radiology, chart personally reviewed. Agree with resident's history and physical, assessment, plan with following comments: [employer]OR [employer]: Patient follows commands, Pulmonary: Acceptable oxygenation and ventilation and tolerating NIV. Patient will be using it at night and patient will need to mobilize and incentive spirometry Cardiovascular: stable and cardiology following up and need to change part of his ICD GI: Nutrition per dietary and GI prophylaxis per routine Heme: DVT prophylaxis per routine ID: Continue antibiotics and plan to de-escalation Renal; urine out put and renal funtion reviewed Endorcine: blood glucose is monitored Lines: all lines checked and no evidence of infections Skin: skin care to prevent pressure ulcers per nursing routine care Pt will need physical therapy
--- NOTE | 2018-12-01 13:13 | Internal Med Progress Note ---
Hospitalist Progress Note - Encounter Date of Encounter: 12/01/18 Time of Encounter: 13:12 - Subjective Interval History: Lying comfortably on bed. Complained of generalized weakness and fatigue. Reported to have runs of V. tach overnight. Tolerating BiPAP overnight. Review the lab with low potassium, better creatinine level Denies fever chills vomiting headache dizziness chest pain short of breath abdominal pain diarrhea - Exam Vitals: Temp Pulse Resp BP Pulse Ox 98.2 F 85 18 140/77 90 12/01/18 11:30 12/01/18 12:00 12/01/18 12:00 12/01/18 12:00 12/01/18 12:00 Exam: General appearance: No acute distress, A&O X 3 patient is on oxine mask 6 L oxygen Head exam: Atraumatic Eye exam: EOMI, PERRLA ENT exam: Moist oral mucosa Neck nontender, supple Respiratory exam: Nimesh breath sound bilaterally could be due to body habitus Cardiovascular exam: Regular rate and rhythm, no systolic murmur Abdominal exam: Soft, nontender, nondistended, positive bowel sounds Extremities exam: No calf tenderness, no pedal edema Present: Skin-no rash, warm, dry, intact Neurological exam: Alert, awake, oriented 3, CN II-XII intact, no focal deficits. No facial droop. Slow speech - Assessment and Plan (1) Anoxic brain injury Current Visit: Yes Status: Suspected Assessment and Plan: Likely anoxic brain injury 2/2 resp arrest at home facility -Completed hypothermia protocol 11/28/18 s/p cardiac arrest Patient was in ICU but intubated on mechanical ventilation but eventually improved therefore extubated. Neurologist on board. EEG 11/28/18: Consistent with severe generalized encephalopathy Improving significantly with regards to his cognitive status. Continue PT OT (2) CHF (congestive heart failure) Current Visit: No Status: Chronic Assessment and Plan: Hx of systolic and diastolic heart failure. TTE 11/28/18: EF 50%, mild LV systolic dysfunction, mild lv dilation with concentric hypertrophy, mild lv diastolic dysfunction with hypokinesis, mod mod PH Continue BB and hold acei/arb for current JENN -Gentle diuresis with lasix given renal function (3) Diabetes Current Visit: Yes Status: Chronic Assessment and Plan: Well controlled. Insulin sliding scale with Accu-Chek. Diabetes diet. A1c 6.6 (4) Sepsis Current Visit: Yes Status: Suspected Assessment and Plan: Suspected sepsis on arrival and is started on empiric treatment. Chest x-ray with left hemithorax complete opacification pneumonia versus effusion Initially broader spectrum antibiotic Rocephin and Levaquin and vancomycin dose and is started but eventually stopped all antibiotics except continuation of Zosyn for total 7-10 days. Urine culture 11/27/18 with growth of E faecalis and P stuartii -Sputum culture 11/28/18 with growth of corynebacterium and psuedomonas. Coryneba cterium likely contaminant during obtaining sample. -MRSA swab pos Blood culture on 11/28/2018-with no growth yet Bedside US without evidence of fluid collection able to be targeted with thoracentesis History of recurrent pseudomonas UTI, frequent episodes PNA (5) JENN (acute kidney injury) Current Visit: Yes Status: Acute Assessment and Plan: SCr 2.25 on arrival, baseline SCr 1.2 Suspect d/t decreased renal perfusion in setting of cardiac arrest Attending known creatinine level but is still elevated. Monitor BMP. Avoid nephrotoxic drugs (6) Hyperkalemia Current Visit: Yes Status: Acute Assessment and Plan: resolved. today k evel- replace and monitor (7) Cardiac arrest with successful resuscitation Current Visit: Yes Status: Acute Assessment and Plan: ROSC was achieved after 1 round CPR and 1 dose epinephrine in ED Initial troponin < 0.03 Cardiology on board (8) Respiratory arrest before cardiac arrest Current Visit: Yes Status: Acute Assessment and Plan: Per cardiology: -Unconscious when EMS arrived at [facility], bradycardic with O2 in 80's. Per ED report, patient had a pulse and detectable rhythm on arrival, then coded. ROSC was achieved after 1 round CPR and 1 dose epinephrine. Found to be hyperkalemic (7, then 7.2). -Troponin 0.04 x 3. TTE completed--LVEF 50%. Mild segmental left ventricular systolic dysfunction. Moderate with mild-moderate AR. -ECG after arrival appears to be accelerated idioventricular, then repeat ECG improved and comparable to prior (inferior infarct). -ICD interrogated (Hx NICMP) --met JJ 02/2018. Last NSVT noted was 11/15, but unc lear if device is still sensing or able to deliver therapies. -Recommend ICD generator change prior to discharge once clinically improved-plan to get done tomorrow (9) Generalized weakness Current Visit: Yes Status: Acute Assessment and Plan: PT OT on board. (10) Generalized weakness Current Visit: Yes Status: Acute (11) DVT prophylaxis Current Visit: No Status: Acute Assessment and Plan: Heparin subcutaneous - Time Spent with Patient Total time spent is greater than 50% in coordination of care (as documented) at patient's floor/unit and/or counseling patient: 25 - 35 minutes Plan of Care Discussed with: patient Internal Medicine: Result - Labs CBC & Chem 7: 12/01/18 04:40 12/01/18 04:40 Labs: Short CBC 12/01/18 Range/Units 04:40 WBC 5.3 (4.3-11.1) K/mcL Hgb 8.1 L (12.9-16.9) g/dL Hct 26.7 L (37.5-50.1) % Plt Count 207 (140-400) K/mcL Neutrophils # 3.6 (1.6-8.9) K/mcL BMP 12/01/18 04:40 Sodium 141 Potassium 3.0 L Chloride 109 H Carbon Dioxide 24 BUN 43 H Creatinine 2.10 H Glucose 139 H Calcium 8.0 L Cardiac Enzymes 12/01/18 Range/Units 04:40 Troponin I 0.04 H* (< 0.04) ng/mL - ABG Interpretation ABG results: ABG ABG pH 7.31 pH Units (7.32-7.45) L 11/29/18 05:07 ABG pCO2 43 mmHg (35-45) 11/29/18 05:07 ABG pO2 87 mmHg (85-104) 11/29/18 05:07 ABG O2 Saturation 96 % (95-98) 11/29/18 05:07 PT/INR, D-dimer PT 13.2 Seconds (9.4-12.1) H 11/27/18 15:25 Consult Discharge Plan - Plan Referrals: Ander Blankenship MD [Primary Care Provider] - (2) CHF (congestive heart failure) Qualifiers: Heart failure type: diastolic Heart failure chronicity: acute on chronic Qualified Code(s): I50.33 - Acute on chronic diastolic (congestive) heart failure (3) Diabetes Qualifiers: Diabetes mellitus type: type 2 Diabetes mellitus oysterman insulin use: with oysterman use Diabetes mellitus complication status: with hyperglycemia Qualified Code(s): E11.65 - Type 2 diabetes mellitus with hyperglycemia; Z79.4 - [facility]erman (current) use of insulin; Z79.4 - group home (current) use of insulin; Z79.4 - group home (current) use of insulin; Z79.4 - group home (current) use of insulin (4) Sepsis Qualifiers: Sepsis type: sepsis due to unspecified organism Qualified Code(s): A41.9 - Se psis, unspecified organism
[2018-12-01] MEDS: Acetaminophen 325 MG TABLET PO PRN (23:41)
[2018-12-01] MEDS: Methyl Salicylate/Menthol 28 GM TUBE TP PRN (23:42)
--- NOTE | 2018-12-02 01:03 | Nephrology Progress Note ---
Date of Encounter: 12/01/18 Time of Encounter: 12:00 - Assessment and Plan (1) JENN (acute kidney injury) Current Visit: Yes Status: Acute SCr continues to improve at 2.10, GFR 31 UOP noted at 2100cc in the past 24hrs Continue to avoid nephrotoxins if possible Will sign off, please reconsult prn (2) Hyperkalemia Current Visit: Yes Status: Acute Resolved and actually now low, can replete (3) Cardiac arrest with successful resuscitation Current Visit: Yes Status: Acute per primary and cardiology (4) Respiratory arrest before cardiac arrest Current Visit: Yes Status: Acute per primary s/p extubation (5) Sepsis Current Visit: Yes Status: Suspected per primary Qualifiers: Sepsis type: sepsis due to unspecified organism Qualified Code(s): A41.9 - Sepsis, unspecified organism Subjective Principal diagnosis: Anoxic Brain Injury post cardiopulm arrest Interval history: Pt seen and examined breathing easier after extubation. Objective - Vital Signs Vital signs: Vital Signs Temp Pulse Resp BP Pulse Ox 12/01/18 23:43 98.4 F 77 23 161/94 95 12/01/18 22:00 77 18 155/88 97 12/01/18 20:07 16 133/63 95 12/01/18 20:00 83 16 133/63 95 12/01/18 19:50 98.0 F 12/01/18 18:00 89 18 153/69 91 12/01/18 17:00 89 24 125/87 90 12/01/18 16:00 85 22 150/69 91 12/01/18 15:00 86 20 130/119 90 12/01/18 14:00 84 20 114/97 90 12/01/18 13:00 83 18 137/84 93 12/01/18 12:00 85 18 140/77 90 12/01/18 11:30 98.2 F 12/01/18 11:00 90 20 147/82 92 12/01/18 10:00 90 20 131/78 94 12/01/18 09:00 90 22 143/70 95 12/01/18 08:00 87 17 159/85 92 12/01/18 07:25 98 F 12/01/18 07:00 86 21 160/83 95 12/01/18 06:00 78 14 170/93 97 12/01/18 05:00 80 15 162/87 96 12/01/18 04:15 98.6 F 12/01/18 04:00 80 14 150/91 96 12/01/18 03:30 84 12/01/18 03:28 17 167/89 99 12/01/18 03:00 82 15 167/89 98 12/01/18 02:00 83 16 157/76 12/01/18 01:11 16 161/86 98 12/01/18 01:00 86 21 161/86 98 Intake and Output 12/01/18 12/01/18 12/02/18 15:59 23:59 07:59 Intake Total 200 / 500 100 / 500 Output Total 400 / 1575 200 / 1575 Balance -200 / -1075 -100 / -1075 Intake: IV Fluids 200 / 500 100 / 500 Zosyn 3.375 GM In 0.9 % Sodium 200 / 400 100 / 400 Chloride (Mini-Bag +) 100 ML @ 25 mls/hr IVPB Q8HR EAR[facility] Rx#: [id number] Output: Catheter 400 / 1575 200 / 1575 Other: Stool Size Large Blood Glucose* 111 167 - General Appearance General appearance: Present: well-developed, well-nourished EENT: Present: ATNC, mucous membranes moist Neck: Present: no JVD, supple Additional Comments: improved areation ant bilat Cardiology: Present: edema, normal S1, normal S2 Gastrointestinal: Present: no tenderness, no guarding Integumentary: Present: warm and dry Neurologic: Present: no focal deficit Musculoskeletal: Present: no deformities Psychiatric: Present: mood/affect appropriate - Lab 12/01/18 04:40 12/01/18 04:40 Consult Discharge Plan - Plan Referrals: Ander Blankenship MD [Primary Care Provider] -
[2018-12-02] MEDS: *HR* Heparin 5,000 UNIT/ML VIAL SQ SCH ×3 (03:52→22:24)
[2018-12-02] MEDS: Acetaminophen 325 MG TABLET PO PRN (06:58)
[2018-12-02] MEDS: Insulin LISPRO 300 UNITS/3 ML VIAL SQ SCH ×4 (07:45→22:16)
[2018-12-02] MEDS: Furosemide 40 MG/4 ML VIAL IVP SCH (08:25)
[2018-12-02] MEDS: Piperacillin/Tazobactam 3.375 GM in 0.9 % Sodium Chloride Mini Bag 100 ML IVPB SCH ×3 (08:25→23:52)
[2018-12-02] MEDS: Methyl Salicylate/Menthol 28 GM TUBE TP PRN ×2 (08:25→23:01)
[2018-12-02] MEDS: Pantoprazole 40 MG VIAL IVP SCH (08:25)
[2018-12-02] MEDS: Ketoconazole 2% CRM 15 GM TUBE TP SCH ×2 (08:33→22:24)
--- NOTE | 2018-12-02 10:37 | Cardiology Progress Note ---
Date of Encounter: 12/02/18 Time of Encounter: 08:30 Assessment and Plan (1) Respiratory arrest before cardiac arrest Current Visit: Yes Status: Acute Per cardiology: -Unconscious when EMS arrived at [facility], bradycardic with O2 in 80's. Per ED report, patient had a pulse and detectable rhythm on arrival, then coded. ROSC was achieved after 1 round CPR and 1 dose epinephrine. Found to be hyperkalemic (7, then 7.2). K 6.3 this AM. Management per primary team. -Troponin 0.04 x 3. TTE completed--LVEF 50%. Mild segmental left ventricular systolic dysfunction. Moderate with mild-moderate AR. -ECG after arrival appears to be accelerated idioventricular, then repeat ECG improved and comparable to prior (inferior infarct). -ICD interrogated (Hx NICMP) --met JJ 02/2018. Last NSVT noted was 11/15, but unclear if device is still sensing or able to deliver therapies. -Recommend ICD generator change prior to discharge once clinically improved. Intermittent wide QRS noted on telemetry. Telemetry strips reviewed with Dr Wolff with possible idioventricular rhythm vs sinus rhythm with abberency. No VT noted. -Patient is not clinically stable for ICD generator change. Cardiology will follow peripherally through the weekend. (2) CHF (congestive heart failure) Current Visit: No Status: Chronic Per cardiology: -Known NICM, TTE this admission with LVEF 50%. Mild segmental left ventricular systolic dysfunction. -Volume overloaded on exam. Now with JENN, nephrology following. -On IV lasix, remains with net positive I/os. Being cautiously diuresed due to JENN. -Respiratory status is improving. -On BB. NO celestina/arb due to renal function. -Strict i/os, fluid restriction, daily weights. -Agree with cautious diuresis, monitor renal function. Qualifiers: Heart failure type: diastolic Heart failure chronicity: acute on chronic Qualified Code(s): I50.33 - Acute on chronic diastolic (congestive) heart failure (3) Elevated troponin Current Visit: No Status: Acute Per cardiology: -Troponin 0.04, 0.04, 0.04--borderline in setting of arrest, JENN, hyperkalemia and PNA vs pulmonary edema with Complete opacification of the left hemithorax on CXR. -Demand ischemia, nondiagnostic for ACS. Cardiac rehab not warranted. Discussion w patient/family: The assessment and plan as outlined above was discussed with the patient who expressed understanding and agreement. All questions were answered. Thank you for involving us in the care of your patient. Please call with any questions. Discussed and reviewed with Subjective Principal diagnosis: Anoxic Brain Injury post cardiopulm arrest Interval history: Patient laying in bed today. States respiratory status is improved, however still requireing high flow O2. Unable to lay flat. Objective Vital Signs, Last 4 Hours Temp Pulse Resp BP Pulse Ox 12/02/18 08:31 91 12/02/18 07:15 98.4 F 82 16 153/84 95 General: Conversant, Other (Mild conversational dyspnea noted. ) HEENT: Atraumatic, Normocephaly, Mucus Membranes Moist Neck: No JVD, Normal carotid pulses Cardiac: Reg Rate and Rhythm, Normal S1 and S2, No Murmur Lungs: Other (Lung sounds diminished throughout. ) Neuro: Alert and responsive, No focal deficits noted Abdomen: Soft, Non-Tender Skin: No rashes noted on visualized skin Musculoskeletal: No Chest Wall Tenderness Extremities: No Clubbing, No Cyanosis, Normal Pulses, Other (Moderate lower extremity edema noted, non-pitting. ) Results 12/01/18 04:40 12/01/18 04:40 Active Medications Acetaminophen (Tylenol) 650 mg PO Q6HR PRN PRN Reason: Mild Pain/Fever Stop: 05/29/19 20:41 Last Admin: 12/02/18 06:58 Dose: 650 mg Documented by: Artificial Tears (Akwa Tears) 1 drop BOTH EYES Q2HR PRN; Protocol PRN Reason: Dry Eyes Stop: 05/29/19 20:41 Carvedilol (Coreg) 6.25 mg PO BIDWM [facility]LENE; Protocol Stop: 06/03/19 06:01 Last Admin: 12/02/18 07:45 Dose: Not Given Documented by: Dextrose/Water (Dextrose 50% (Syg)) 25 ml IVP AD PRN PRN Reason: Hypoglycemia Stop: 05/29/19 22:54 Furosemide (Lasix) 40 mg IVP DAILY [facility] Stop: 06/01/19 09:01 Last Admin: 12/02/18 08:25 Dose: 40 mg Documented by: Glucagon (Glucagen) 1 mg IM ONCE PRN PRN Reason: Hypoglycemia Stop: 05/29/19 22:54 Glucose (Gluctose) 15 gm PO ONCE PRN PRN Reason: Hypoglycemia Stop: 05/29/19 22:54 Glucose (Gluctose) 30 gm PO ONCE PRN PRN Reason: Hypoglycemia Stop: 05/29/19 22:54 Heparin Sodium (Porcine) (Heparin) 5,000 unit SQ Q8HCO [facility] Stop: 05/29/19 22:01 Last Admin: 12/02/18 03:52 Dose: 5,000 unit Documented by: Dextrose (Dextrose 5%) 1,000 mls @ 100 mls/hr IVC .Q10H PRN PRN Reason: HYPOGLYCEMIA Stop: 05/29/19 22:54 Piperacillin Sod/Tazobactam (Sod 3.375 gm/ Sodium Chloride) 100 mls @ 25 mls/hr IVPB Q8HR [facility] Stop: 05/30/19 08:01 Last Admin: 12/02/18 08:25 Dose: 25 mls/hr Documented by: Insulin Human Lispro (Humalog) 0 units SQ HS [facility]; Protocol Stop: 06/01/19 21:01 Last Admin: 12/01/18 21:32 Dose: Not Given Documented by: Insulin Human Lispro (Humalog) 0 units SQ TIDAC [facility]; Protocol Stop: 06/01/19 16:31 Last Admin: 12/02/18 07:45 Dose: Not Given Documented by: Ketoconazole (Nizoral Cream) 1 appl TP BID [facility] Stop: 05/30/19 09:01 Last Admin: 12/02/18 08:33 Dose: 1 appl Documented by: Menthol/Methyl Salicylate (Bengay) 1 appl TP BID PRN PRN Reason: Pain Stop: 06/02/19 22:55 Last Admin: 12/01/18 23:42 Dose: 1 appl Documented by: Naloxone HCl (Narcan) 0.4 mg IVP Q2MPRN PRN PRN Reason: SEE COMMENTS Stop: 05/29/19 20:41 Pantoprazole Sodium (Protonix) 40 mg IVP DAILY [facility] Stop: 05/30/19 10:01 Last Admin: 12/02/18 08:25 Dose: 40 mg Documented by: Laboratory Tests 12/01/18 12/01/18 04:40 04:40 Hgb 8.1 L Creatinine 2.10 H - Imaging and Cardiology Chest Xray: report reviewed Echo: report reviewed - EKG Interpretation EKG results cardiology: other (Telemetry reviewed with average HR previous 12 hours noted to be 79, SR. PVCs noted.) Consult Discharge Plan - Plan Referrals: Ander Blankenship MD [Primary Care Provider] -
--- NOTE | 2018-12-02 11:39 | Internal Med Progress Note ---
Hospitalist Progress Note - Encounter Date of Encounter: 12/02/18 Time of Encounter: 11:37 - Subjective Interval History: Patient sitting comfortably on bed. Respiratory status improved but is still on high flow oxygen 7 L. Required BiPAP the night. Unable to lie flat. No VT noted in the telemetry Denies fever chills chest pain nausea vomiting headache abdominal pain diarrhea - Exam Vitals: Temp Pulse Resp BP Pulse Ox 98.0 F 87 19 153/79 94 12/02/18 11:20 12/02/18 11:20 12/02/18 11:20 12/02/18 11:20 12/02/18 11:20 Exam: General appearance: No acute distress, A&O X 3 patient is on high flow oxygen 7 L Head exam: Atraumatic Eye exam: EOMI, PERRLA ENT exam: Moist oral mucosa Neck nontender, supple Respiratory exam: Decreased breath sound with few crepitation bilaterally Cardiovascular exam: Regular rate and rhythm, no systolic murmur Abdominal exam: Soft, nontender, nondistended, positive bowel sounds. Chronic Harper catheter Extremities exam: No calf tenderness, +1 bilateral pedal edema Present: Skin-no rash, warm, dry, intact Neurological exam: Alert, awake, oriented 3, CN II-XII intact, no focal deficits. No facial droop. Slow speech - Assessment and Plan (1) Anoxic brain injury Current Visit: Yes Status: Suspected Assessment and Plan: Likely anoxic brain injury 2/2 resp arrest at home facility -Completed hypothermia protocol 11/28/18 s/p cardiac arrest Patient was in ICU but intubated on mechanical ventilation but eventually improved therefore extubated. Neurologist on board. EEG 11/28/18: Consistent with severe generalized encephalopathy Improving significantly with regards to his cognitive status. Continue PT OT (2) CHF (congestive heart failure) Current Visit: No Status: Chronic Assessment and Plan: Hx of systolic and diastolic heart failure. TTE 11/28/18: EF 50%, mild LV systolic dysfunction, mild lv dilation with concentric hypertrophy, mild lv diastolic dysfunction with hypokinesis, mod mod PH Continue BB and hold acei/arb for current JENN -Gentle diuresis with lasix given renal function Morning lab ordered Lab for today still pending Having crepitation with pedal edema-repeat chest x-ray and if worsening pulmonary edema then will consider extra Lasix IV dose if blood pressure permits (3) Diabetes Current Visit: Yes Status: Chronic Assessment and Plan: Well controlled. Insulin sliding scale with Accu-Chek. Diabetes diet. A1c 6.6 (4) Sepsis Current Visit: Yes Status: Suspected Assessment and Plan: Suspected sepsis on arrival and is started on empiric treatment. Chest x-ray with left hemithorax complete opacification pneumonia versus effusion Initially broader spectrum antibiotic Rocephin and Levaquin and vancomycin dose and is started but eventually stopped all antibiotics except continuation of Zosyn for total 7-10 days. Urine culture 11/27/18 with growth of E faecalis and P stuartii -Sputum culture 11/28/18 with growth of corynebacterium and psuedomonas. Corynebacterium likely contaminant during obtaining sample. -MRSA swab pos Blood culture on 11/28/2018-with no growth yet History of recurrent pseudomonas UTI, frequent episodes PNA (5) JENN (acute kidney injury) Current Visit: Yes Status: Acute Assessment and Plan: SCr 2.25 on arrival, baseline SCr 1.2 Suspect d/t decreased renal perfusion in setting of cardiac arrest Trending down creatinine level but is still elevated. Monitor BMP. Avoid nephrotoxic drugs (6) Hyperkalemia Current Visit: Yes Status: Acute Assessment and Plan: resolved. BMP monitoring (7) Cardiac arrest with successful resuscitation Current Visit: Yes Status: Acute Assessment and Plan: ROSC was achieved after 1 round CPR and 1 dose epinephrine in ED Initial troponin < 0.03 Cardiology on board (8) Respiratory arrest before cardiac arrest Current Visit: Yes Status: Acute Assessment and Plan: Per cardiology: -Unconscious when EMS arrived at [facility], bradycardic with O2 in 80's. Per ED report, patient had a pulse and detectable rhythm on arrival, then coded. ROSC was achieved after 1 round CPR and 1 dose epinephrine. Found to be hyperkalemic (7, then 7.2). -Troponin 0.04 x 3. TTE completed--LVEF 50%. Mild segmental left ventricular systolic dysfunction. Moderate with mild-moderate AR. -ECG after arrival appears to be accelerated idioventricular, then repeat ECG improved and comparable to prior (inferior infarct). -ICD interrogated (Hx NICMP) --met JJ 02/2018. Last NSVT noted was 11/15, but unclear if device is still sensing or able to deliver therapies. -Recommend ICD generator change prior to discharge once clinically improved-plan to get done tomorrow as he still cannot lie flat for long duration (9) Generalized weakness Current Visit: Yes Status: Acute Assessment and Plan: PT OT on board. (10) Generalized weakness Current Visit: Yes Status: Acute (11) Swallowing difficulty Current Visit: Yes Status: Acute Assessment and Plan: As per nursing staff there was concern for choking liquid but as per patient he has choking spell while taking liquid lying flat otherwise denies any swallowing difficulty for liquid or solid. Speech therapist consultation. Repeat chest x- ray for any aspiration. Further diet recommendation as per speech therapist (12) DVT prophylaxis Current Visit: No Status: Acute Assessment and Plan: Heparin subcutaneous - Time Spent with Patient Total time spent is greater than 50% in coordination of care (as documented) at patient's floor/unit and/or counseling patient: 25 - 35 minutes Plan of Care Discussed with: patient Internal Medicine: Result - Labs CBC & Chem 7: 12/01/18 04:40 12/01/18 04:40 - ABG Interpretation ABG results: ABG ABG pH 7.31 pH Units (7.32-7.45) L 11/29/18 05:07 ABG pCO2 43 mmHg (35-45) 11/29/18 05:07 ABG pO2 87 mmHg (85-104) 11/29/18 05:07 ABG O2 Saturation 96 % (95-98) 11/29/18 05:07 PT/INR, D-dimer PT 13.2 Seconds (9.4-12.1) H 11/27/18 15:25 Consult Discharge Plan - Plan Referrals: Ander Blankenship MD [Primary Care Provider] - (2) CHF (congestive heart failure) Qualifiers: Heart failure type: diastolic Heart failure chronicity: acute on chronic Qualified Code(s): I50.33 - Acute on chronic diastolic (congestive) heart failure (3) Diabetes Qualifiers: Diabetes mellitus type: type 2 Diabetes mellitus intermediate insulin use: with intermediate use Diabetes mellitus complication status: with hyperglycemia Qualified Code(s): E11.65 - Type 2 diabetes mellitus with hyperglycemia; Z79.4 - [facility] (current) use of insulin; 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
[2018-12-02 13:20] LABS: Calcium 8.7 mg/dL (8.6-10.3); Magnesium 2.4 mg/dL (1.6-2.6)
[2018-12-02] MEDS ORDERED: Furosemide 40 MG/4 ML VIAL IVP ONE (16:43)
[2018-12-03] MEDS: Melatonin 3 MG TABLET PO PRN ×2 (03:18→22:21)
[2018-12-03 03:59] LABS: Basophils % 0.6 %; Eosinophils # 0.1 K/mcL (0.0-0.6); Eosinophils % 1.5 %; Hematocrit 27.5 % (37.5-50.1); Hemoglobin 8.3 g/dL (12.9-16.9); Immature Granulocytes % 1.1 % (0-4); Lymphocytes # 1.5 K/mcL (0.6-4.6); Lymphocytes % 23.8 %; Mean Corpuscular HGB Conc 30.2 g/dL (31.6-35.5); Mean Corpuscular Hemoglobin 25.8 pg (28.0-33.3); Mean Corpuscular Volume 85.4 fL (83.0-100.0); Mean Platelet Volume 10.2 fL (9.4-12.4); Monocytes # 0.7 K/mcL (0.0-1.3); Monocytes % 10.2 %; Neutrophils # 4.1 K/mcL (1.6-8.9); Platelet Count 197 K/mcL (140-400); Red Blood Count 3.22 M/mcL (4.19-5.50); Red Cell Distribution Width 17.7 % (11.5-14.5); Segmented Neutrophils % 62.8 %
[2018-12-03 04:19] LABS: Calcium 8.2 mg/dL (8.6-10.3); Magnesium 2.2 mg/dL (1.6-2.6); Potassium 3.2 mEq/L (3.5-5.1)
[2018-12-03] MEDS: *HR* Heparin 5,000 UNIT/ML VIAL SQ SCH ×3 (06:26→22:22)
[2018-12-03] MEDS: Piperacillin/Tazobactam 3.375 GM in 0.9 % Sodium Chloride Mini Bag 100 ML IVPB SCH ×3 (08:18→23:25)
[2018-12-03] MEDS: Furosemide 40 MG/4 ML VIAL IVP SCH (08:18)
[2018-12-03] MEDS: Pantoprazole 40 MG VIAL IVP SCH (08:18)
[2018-12-03] MEDS: Acetaminophen 325 MG TABLET PO PRN ×2 (08:18→16:18)
[2018-12-03] MEDS: Ketoconazole 2% CRM 15 GM TUBE TP SCH ×2 (08:19→22:23)
[2018-12-03] MEDS: Insulin LISPRO 300 UNITS/3 ML VIAL SQ SCH ×4 (08:19→22:15)
--- NOTE | 2018-12-03 11:30 | Event Note ---
Date of Encounter: 12/03/18 Time of Encounter: 11:29 - Cardiology Event Note Cardiology monitoring peripherally. ICD implant planned for wednesday.
--- NOTE | 2018-12-03 12:17 | Internal Med Progress Note ---
Hospitalist Progress Note - Encounter Date of Encounter: 12/03/18 Time of Encounter: 12:14 - Subjective Interval History: Patient feeling slightly better and shortness of breath but distal get out of breath on exertion even simply getting out of the bed. Requiring 7 L oxygen by high flow. Reviewed the lab Denies fever chills nausea vomiting headache dizziness chest pain abdominal pain diarrhea. Complained of generalized weakness fatigue - Exam Vitals: Temp Pulse Resp BP Pulse Ox 97.8 F 77 18 131/83 92 12/03/18 11:25 12/03/18 11:25 12/03/18 11:25 12/03/18 11:25 12/03/18 11:25 Exam: General appearance: No acute distress, A&O X 3 patient is on high flow oxygen 7- 8 L Head exam: Atraumatic Eye exam: EOMI, PERRLA ENT exam: Moist oral mucosa Neck nontender, supple Respiratory exam: Decreased breath sound with few crepitation bilaterally Cardiovascular exam: Regular rate and rhythm, no systolic murmur Abdominal exam: Soft, nontender, nondistended, positive bowel sounds. Chronic Harper catheter Extremities exam: No calf tenderness, +1 bilateral pedal edema Present: Skin-no rash, warm, dry, intact Neurological exam: Alert, awake, oriented 3, CN II-XII intact, no focal deficits. No facial droop. Slow speech - Assessment and Plan (1) Anoxic brain injury Current Visit: Yes Status: Suspected Assessment and Plan: Likely anoxic brain injury 2/2 resp arrest at home facility -Completed hypothermia protocol 11/28/18 s/p cardiac arrest Patient was in ICU but intubated on mechanical ventilation but eventually improved therefore extubated. Neurologist on board. EEG 11/28/18: Consistent with severe generalized encephalopathy Improving significantly with regards to his cognitive status. Continue PT OT (2) CHF (congestive heart failure) Current Visit: No Status: Chronic Assessment and Plan: Hx of systolic and diastolic heart failure. TTE 11/28/18: EF 50%, mild LV systolic dysfunction, mild lv dilation with concentric hypertrophy, mild lv diastolic dysfunction with hypokinesis, mod mod PH Continue BB and hold acei/arb for current JENN -Gentle diuresis with lasix given renal function Morning lab ordered Lab for today still pending Patient is still has crepitation with slight pedal edema Having crepitation with pedal edema-repeat chest x-ray with interstitial infiltrate again noted suggestive of pulmonary edema Patient is on Lasix 40 mg IV daily -will plan to give additional dose of 40 mg IV Lasix this afternoon if blood pressure permits Continue potassium supplementation (3) Diabetes Current Visit: Yes Status: Chronic Assessment and Plan: Well controlled. Insulin sliding scale with Accu-Chek. Diabetes diet. A1c 6.6 (4) Sepsis Current Visit: Yes Status: Suspected Assessment and Plan: Suspected sepsis on arrival and is started on empiric treatment. Chest x-ray with left hemithorax complete opacification pneumonia versus effusion Initially broader spectrum antibiotic Rocephin and Levaquin and vancomycin dose and is started but eventually stopped all antibiotics except continuation of Zosyn for total 7-10 days. Urine culture 11/27/18 with growth of E faecalis and P stuartii -Sputum culture 11/28/18 with growth of corynebacterium and psuedomonas. Corynebacterium likely contaminant during obtaining sample. -MRSA swab pos Blood culture on 11/28/2018-with no growth yet History of recurrent pseudomonas UTI, frequent episodes PNA (5) JENN (acute kidney injury) Current Visit: Yes Status: Acute Assessment and Plan: SCr 2.25 on arrival, baseline SCr 1.2 Suspect d/t decreased renal perfusion in setting of cardiac arrest Stable but still elevated. Monitor BMP. Avoid nephrotoxic drugs (6) Hyperkalemia Current Visit: Yes Status: Acute Assessment and Plan: resolved. Low potassium level therefore replacement and BMP monitoring (7) Cardiac arrest with successful resuscitation Current Visit: Yes Status: Acute Assessment and Plan: ROSC was achieved after 1 round CPR and 1 dose epinephrine in ED Initial troponin < 0.03 Cardiology on board (8) Respiratory arrest before cardiac arrest Current Visit: Yes Status: Acute Assessment and Plan: Per cardiology: -Unconscious when EMS arrived at [facility], bradycardic with O2 in 80's. Per ED report, patient had a pulse and detectable rhythm on arrival, then coded. ROSC was achieved after 1 round CPR and 1 dose epinephrine. Found to be hyperkalemic (7, then 7.2). -Troponin 0.04 x 3. TTE completed--LVEF 50%. Mild segmental left ventricular systolic dysfunction. Moderate with mild-moderate AR. -ECG after arrival appears to be accelerated idioventricular, then repeat ECG improved and comparable to prior (inferior infarct). -ICD interrogated (Hx NICMP) --met JJ 02/2018. Last NSVT noted was 11/15, but unclear if device is still sensing or able to deliver therapies. -Recommend ICD generator change prior to discharge once clinically improved-plan to get done Wednesday. (9) Generalized weakness Current Visit: Yes Status: Acute Assessment and Plan: PT OT on board. (10) Generalized weakness Current Visit: Yes Status: Acute (11) Swallowing difficulty Current Visit: Yes Status: Acute Assessment and Plan: As per nursing staff there was concern for choking liquid but as per patient he has choking spell while taking liquid lying flat otherwise denies any swallowing difficulty for liquid or solid. Speech therapist consultation. Further diet recommendation as per speech therapist (12) DVT prophylaxis Current Visit: No Status: Acute Assessment and Plan: Heparin subcutaneous - Time Spent with Patient Total time spent is greater than 50% in coordination of care (as documented) at patient's floor/unit and/or counseling patient: 25 - 35 minutes Plan of Care Discussed with: patient Internal Medicine: Result - Labs CBC & Chem 7: 12/03/18 03:25 12/03/18 03:25 Labs: Short CBC 12/03/18 Range/Units 03:25 WBC 6.5 (4.3-11.1) K/mcL Hgb 8.3 L (12.9-16.9) g/dL Hct 27.5 L (37.5-50.1) % Plt Count 197 (140-400) K/mcL Neutrophils # 4.1 (1.6-8.9) K/mcL BMP 12/02/18 12/03/18 12:00 03:25 Sodium 142 143 Potassium 3.0 L 3.2 L Chloride 106 108 H Carbon Dioxide 27 27 BUN 39 H 38 H Creatinine 2.02 H 2.02 H Glucose 130 H 144 H Calcium 8.7 8.2 L - ABG Interpretation ABG results: ABG ABG pH 7.31 pH Units (7.32-7.45) L 11/29/18 05:07 ABG pCO2 43 mmHg (35-45) 11/29/18 05:07 ABG pO2 87 mmHg (85-104) 11/29/18 05:07 ABG O2 Saturation 96 % (95-98) 11/29/18 05:07 PT/INR, D-dimer PT 13.2 Seconds (9.4-12.1) H 11/27/18 15:25 - Impressions Impressions Chest X-Ray 12/02/18 11:41 IMPRESSION: 1. Unchanged cardiomegaly 2. Interstitial infiltrates again noted suggesting pulmonary edema D/ / Polo Johnson MD / Polo Johnson MD Interpreting Provider: Polo Johnson MD Consult Discharge Plan - Plan Referrals: Ander Blankenship MD [Primary Care Provider] - (2) CHF (congestive heart failure) Qualifiers: Heart failure type: diastolic Heart failure chronicity: acute on chronic Qualified Code(s): I50.33 - Acute on chronic diastolic (congestive) heart failure (3) Diabetes Qualifiers: Diabetes mellitus type: type 2 Diabetes mellitus emt intermediate insulin use: with custodial use Diabetes mellitus complication status: with hyperglycemia Qualified Code(s): E11.65 - Type 2 diabetes mellitus with hyperglycemia; Z79.4 - termite inspector (current) use of insulin; Z79.4 - FPC (current) use of insulin; Z79.4 - termite inspector (current) use of insulin; Z79.4 - termite inspector (current) use of i nsulin (4) Sepsis Qualifiers: Sepsis type: sepsis due to unspecified organism Qualified Code(s): A41.9 - Sepsis, unspecified organism
[2018-12-03] MEDS: traMADol 50 MG TABLET PO PRN ×2 (12:47→22:21)
[2018-12-03] MEDS ORDERED: Furosemide 40 MG in 0.9 % Sodium Chloride 50 ML IV ONE (15:00)
[2018-12-03] MEDS: Methyl Salicylate/Menthol 28 GM TUBE TP PRN (22:23)
[2018-12-04] MEDS: Ipratropium/Albuterol Neb 3 ML IH PRN ×2 (02:32→22:52)
[2018-12-04 03:48] LABS: Basophils % 0.5 %; Eosinophils # 0.3 K/mcL (0.0-0.6); Eosinophils % 3.5 %; Hematocrit 28.9 % (37.5-50.1); Hemoglobin 8.7 g/dL (12.9-16.9); Immature Granulocytes % 0.8 % (0-4); Lymphocytes # 1.6 K/mcL (0.6-4.6); Lymphocytes % 21.2 %; Mean Corpuscular HGB Conc 30.1 g/dL (31.6-35.5); Mean Corpuscular Volume 86.3 fL (83.0-100.0); Mean Platelet Volume 9.5 fL (9.4-12.4); Monocytes # 0.6 K/mcL (0.0-1.3); Monocytes % 8.4 %; Neutrophils # 4.9 K/mcL (1.6-8.9); Platelet Count 178 K/mcL (140-400); Red Blood Count 3.35 M/mcL (4.19-5.50); Red Cell Distribution Width 17.7 % (11.5-14.5); Segmented Neutrophils % 65.6 %
[2018-12-04 04:08] LABS: Calcium 8.3 mg/dL (8.6-10.3); Magnesium 2.1 mg/dL (1.6-2.6); Potassium 3.4 mEq/L (3.5-5.1)
[2018-12-04] MEDS: *HR* Heparin 5,000 UNIT/ML VIAL SQ SCH ×3 (08:16→21:52)
[2018-12-04] MEDS: Furosemide 40 MG/4 ML VIAL IVP SCH ×2 (08:35→17:16)
[2018-12-04] MEDS: Pantoprazole 40 MG VIAL IVP SCH (08:35)
[2018-12-04] MEDS: Piperacillin/Tazobactam 3.375 GM in 0.9 % Sodium Chloride Mini Bag 100 ML IVPB SCH ×3 (08:36→23:23)
[2018-12-04] MEDS: Ketoconazole 2% CRM 15 GM TUBE TP SCH ×2 (08:38→21:54)
[2018-12-04] MEDS: Insulin LISPRO 300 UNITS/3 ML VIAL SQ SCH ×4 (08:38→22:01)
[2018-12-04] MEDS: Acetaminophen 325 MG TABLET PO PRN ×2 (08:47→23:21)
--- NOTE | 2018-12-04 11:03 | Internal Med Progress Note ---
Hospitalist Progress Note - Encounter Date of Encounter: 12/04/18 Time of Encounter: 11:00 - Subjective Interval History: Sitting on bed in want to lie down. Patient does not seem like motivated to participate in PTOT and getting out of bed. Review of the lab with slight better creatinine Denies fever chills nausea vomiting headache dizziness chest pain abdominal pain diarrhea - Exam Vitals: Temp Pulse Resp BP Pulse Ox 97.9 F 85 16 160/72 95 12/04/18 07:00 12/04/18 07:00 12/04/18 07:00 12/04/18 07:00 12/04/18 07:00 Exam: General appearance: No acute distress, A&O X 3 patient is on high flow oxygen 7- 8 L Head exam: Atraumatic Eye exam: EOMI, PERRLA ENT exam: Moist oral mucosa Neck nontender, supple Respiratory exam: Decreased breath sound with few crepitation bilaterally Cardiovascular exam: Regular rate and rhythm, no systolic murmur Abdominal exam: Soft, nontender, nondistended, positive bowel sounds. Chronic Harper catheter Extremities exam: No calf tenderness, +2 bilateral pedal edema Present: Skin-no rash, warm, dry, intact Neurological exam: Alert, awake, oriented 3, CN II-XII intact, no focal deficits. No facial droop. Slow speech - Assessment and Plan (1) CHF (congestive heart failure) Current Visit: No Status: Chronic Assessment and Plan: Hx of systolic and diastolic heart failure. TTE 11/28/18: EF 50%, mild LV systolic dysfunction, mild lv dilation with concentric hypertrophy, mild lv diastolic dysfunction with hypokinesis, mod mod PH Continue BB and hold acei/arb for current JENN -Gentle diuresis with lasix given renal function Patient is still has crepitation with slight pedal edema Patient was on Lasix 40 mg daily and has been requiring additional dose of 40 mg for last 2 days and creatinine has been improving therefore changed to Lasix 40 mg IV twice a day for now while monitoring the creatinine level and blood pressure. Repeat chest x-ray tomorrow . Continue potassium supplementation (2) Anoxic brain injury Current Visit: Yes Status: Suspected Assessment and Plan: Likely anoxic brain injury 2/2 resp arrest at home facility -Completed hypothermia protocol 11/28/18 s/p cardiac arrest Patient was in ICU but intubated on mechanical ventilation but eventually improved therefore extubated. Neurologist on board. EEG 11/28/18: Consistent with severe generalized encephalopathy Improving with regards to his cognitive status. Continue PT OT (3) Diabetes Current Visit: Yes Status: Chronic Assessment and Plan: Well controlled. Insulin sliding scale with Accu-Chek. Diabetes diet. A1c 6.6 (4) Sepsis Current Visit: Yes Status: Suspected Assessment and Plan: Suspected sepsis on arrival and is started on empiric treatment. Chest x-ray with left hemithorax complete opacification pneumonia versus effusion Initially broader spectrum antibiotic Rocephin and Levaquin and vancomycin dose and is started but eventually stopped all antibiotics except continuation of Zosyn for total 7-10 days. Started on 11/30 2018 Urine culture 11/27/18 with growth of E faecalis and P stuartii -Sputum culture 11/28/18 with growth of corynebacterium and psuedomonas. Corynebacterium likely contaminant during obtaining sample. -MRSA swab pos Blood culture on 11/28/2018-with no growth yet History of recurrent pseudomonas UTI, frequent episodes PNA (5) JENN (acute kidney injury) Current Visit: Yes Status: Acute Assessment and Plan: SCr 2.25 on arrival, baseline SCr 1.2 Suspect d/t decreased renal perfusion in setting of cardiac arrest Slight trending down but is still elevated. Monitor BMP. Avoid nephrotoxic drugs (6) Hyperkalemia Current Visit: Yes Status: Acute Assessment and Plan: resolved. Low potassium level therefore replacement and BMP monitoring . K dur 40 mEq daily (7) Respiratory arrest before cardiac arrest Current Visit: Yes Status: Acute Assessment and Plan: Per cardiology: -Unconscious when EMS [facility], bradycardic with O2 in 80's. Per ED report, patient had a pulse and detectable rhythm on arrival, then coded. ROSC was achieved after 1 round CPR and 1 dose epinephrine. Found to be hyperkalemic (7, then 7.2). -Troponin 0.04 x 3. TTE completed--LVEF 50%. Mild segmental left ventricular systolic dysfunction. Moderate with mild-moderate AR. -ECG after arrival appears to be accelerated idioventricular, then repeat ECG improved and comparable to prior (inferior infarct). -ICD interrogated (Hx NICMP) --met JJ 02/2018. Last NSVT noted was 11/15, but unclear if device is still sensing or able to deliver therapies. -Recommend ICD generator change prior to discharge once clinically improved-plan to get done Wednesday. (8) Cardiac arrest with successful resuscitation Current Visit: Yes Status: Acute Assessment and Plan: ROSC was achieved after 1 round CPR and 1 dose epinephrine in ED Initial troponin < 0.03 Cardiology on board (9) Generalized weakness Current Visit: Yes Status: Acute Assessment and Plan: PT OT on board. needs more motivation (10) Swallowing difficulty Current Visit: Yes Status: Acute Assessment and Plan: As per nursing staff there was concern for choking liquid but as per patient he has choking spell while taking liquid lying flat otherwise denies any swallowing difficulty for liquid or solid. Speech therapist consultation. Further diet recommendation as per speech therapist (11) DVT prophylaxis Current Visit: No Status: Acute Assessment and Plan: Heparin subcutaneous - Time Spent with Patient Total time spent is greater than 50% in coordination of care (as documented) at patient's floor/unit and/or counseling patient: 25 - 35 minutes Plan of Care Discussed with: patient Internal Medicine: Result - Labs CBC & Chem 7: 12/04/18 03:30 12/04/18 03:30 Labs: Short CBC 12/04/18 Range/Units 03:30 WBC 7.5 (4.3-11.1) K/mcL Hgb 8.7 L (12.9-16.9) g/dL Hct 28.9 L (37.5-50.1) % Plt Count 178 (140-400) K/mcL Neutrophils # 4.9 (1.6-8.9) K/mcL BMP 12/04/18 03:30 Sodium 142 Potassium 3.4 L Chloride 106 Carbon Dioxide 28 BUN 36 H Creatinine 1.90 H Glucose 120 H Calcium 8.3 L - ABG Interpretation ABG results: ABG ABG pH 7.31 pH Units (7.32-7.45) L 11/29/18 05:07 ABG pCO2 43 mmHg (35-45) 11/29/18 05:07 ABG pO2 87 mmHg (85-104) 11/29/18 05:07 ABG O2 Saturation 96 % (95-98) 11/29/18 05:07 PT/INR, D-dimer PT 13.2 Seconds (9.4-12.1) H 11/27/18 15:25 Consult Discharge Plan - Plan Referrals: Ander Blankenship MD [Primary Care Provider] - (1) CHF (congestive heart failure) Qualifiers: Heart failure type: diastolic Heart failure chronicity: acute on chronic Qualified Code(s): I50.33 - Acute on chronic diastolic (congestive) heart failure (3) Diabetes Qualifiers: Diabetes mellitus type: type 2 Diabetes mellitus zipper lining folder insulin use: with zipper lining folder use Diabetes mellitus complication status: with hyperglycemia Qualified Code(s): E11.65 - Type 2 diabetes mellitus with hyperglycemia; Z79.4 - baggage screener (current) use of insulin; Z79.4 - snf (current) use of insulin; Z79.4 - baggage screener (current) use of insulin; Z79.4 - baggage screener (current) use of insulin (4) Sepsis Qualifiers: Sepsis type: sepsis due to unspecified organism Qualified Code(s): A41.9 - Sepsis, unspecified organism
[2018-12-04] MEDS: traMADol 50 MG TABLET PO PRN ×2 (12:08→21:50)
[2018-12-04] MEDS: Methyl Salicylate/Menthol 28 GM TUBE TP PRN (21:53)
[2018-12-04] MEDS: Melatonin 3 MG TABLET PO PRN (23:21)
[2018-12-05] MEDS ORDERED: MORPHINE SUL Oral CONC 10 MG/0.5 ML ORAL.SYG SL ONE (02:10)
[2018-12-05] MEDS: Ondansetron ODT 4 MG TAB.RAPDIS SL PRN ×2 (03:28→09:39)
[2018-12-05 03:55] LABS: Basophils # 0.1 K/mcL (0.0-0.2); Basophils % 0.8 %; Eosinophils # 0.3 K/mcL (0.0-0.6); Hematocrit 27.9 % (37.5-50.1); Hemoglobin 8.4 g/dL (12.9-16.9); Immature Granulocytes % 1.2 % (0-4); Lymphocytes # 1.6 K/mcL (0.6-4.6); Lymphocytes % 24.7 %; Mean Corpuscular HGB Conc 30.1 g/dL (31.6-35.5); Mean Corpuscular Hemoglobin 26.1 pg (28.0-33.3); Mean Corpuscular Volume 86.6 fL (83.0-100.0); Mean Platelet Volume 10.6 fL (9.4-12.4); Monocytes # 0.6 K/mcL (0.0-1.3); Monocytes % 8.5 %; Platelet Count 169 K/mcL (140-400); Red Blood Count 3.22 M/mcL (4.19-5.50); Red Cell Distribution Width 17.9 % (11.5-14.5); Segmented Neutrophils % 60.8 %
[2018-12-05 04:18] LABS: Calcium 8.4 mg/dL (8.6-10.3); Potassium 3.5 mEq/L (3.5-5.1)
[2018-12-05] MEDS: *HR* Heparin 5,000 UNIT/ML VIAL SQ SCH ×3 (05:43→21:56)
[2018-12-05] MEDS: Insulin LISPRO 300 UNITS/3 ML VIAL SQ SCH ×4 (07:51→20:26)
--- NOTE | 2018-12-05 09:08 | Event Note ---
Date of Encounter: 12/05/18 Time of Encounter: 08:30 - Cardiology Event Note Seen and examined. Continues to have orthopnea upon exam, unable to lay flat. Oxygen demand increasing, has been on Bipap this AM, on 8 lpm per n/c at bedside. Unable to proceed with ICD generator change today due to worsening respiratory status, discussed with Dr. Nawaf Olsen, recommend gen change prior to discharge when clinical status improved. CXR this AM shows worsening pulmonary edema. Will continue to follow peripherally.
[2018-12-05] MEDS: traMADol 50 MG TABLET PO PRN ×2 (09:39→20:28)
[2018-12-05] MEDS: Piperacillin/Tazobactam 3.375 GM in 0.9 % Sodium Chloride Mini Bag 100 ML IVPB SCH ×2 (09:40→16:46)
[2018-12-05] MEDS: Pantoprazole 40 MG VIAL IVP SCH (09:40)
--- NOTE | 2018-12-05 09:41 | Cardiology Progress Note ---
Date of Encounter: 12/05/18 Time of Encounter: 09:00 Assessment and Plan (1) CHF (congestive heart failure) Current Visit: Yes Status: Chronic Per cardiology: -Known NICM, TTE this admission with LVEF 50%. Mild segmental left ventricular systolic dysfunction. -On BB (coreg). NO celestina/arb due to renal function. -Continues to have significant volume overnight upon exam, CXR (12/05) shows worsening pulmonary edema. Discussed with Dr. Romo; will increase lasix to 80 mg IV BID, will recheck BMP later this afternoon. -Cumulative I&O: + 500 mLs -Strict i/os, fluid restriction, daily weights. -Agree with cautious diuresis, monitor renal function. Qualifiers: Heart failure type: diastolic Heart failure chronicity: acute on chronic Qualified Code(s): I50.33 - Acute on chronic diastolic (congestive) heart failure (2) Respiratory arrest before cardiac arrest Current Visit: Yes Status: Acute Per cardiology: -Unconscious when EMS arrived at [facility], bradycardic with O2 in 80's. Per ED report, patient had a pulse and detectable rhythm on arrival, then coded. ROSC was achieved after 1 round CPR and 1 dose epinephrine. Found to be hyperkalemic (7, then 7.2). K 6.3 this AM. Management per primary team. -Troponin 0.04 x 3. TTE completed--LVEF 50%. Mild segmental left ventricular systolic dysfunction. Moderate with mild-moderate AR. -ECG after arrival appears to be accelerated idioventricular, then repeat ECG improved and comparable to prior (inferior infarct). -ICD interrogated (Hx NICMP) --met JJ 02/2018. Last NSVT noted was 11/15, but unclear if device is still sensing or able to deliver therapies. -Recommend ICD generator change prior to discharge once clinically improved. Intermittent wide QRS noted on telemetry. NSVT noted overnight, max 4 beats. -Patient is not clinically stable for ICD generator change. EP will continue to follow peripherally. (3) Elevated troponin Current Visit: No Status: Acute Per cardiology: -Troponin 0.04, 0.04, 0.04--borderline in setting of arrest, JENN, hyperkalemia and PNA vs pulmonary edema with Complete opacification of the left hemithorax on CXR. -CXR today, 12/05 due to worsening respiratory distress, noted to have worsening pulmonary edema. -Demand ischemia, nondiagnostic for ACS. Cardiac rehab not warranted. Discussion w patient/family: The assessment and plan as outlined above was discussed with the patient and/or family members who expressed understanding and agreement. All questions were answered. Thank you for involving us in the care of your patient. Please call with any questions. The patient will be discussed and reviewed with Dr. Romo; changes to be made accordingly. Subjective Principal diagnosis: Anoxic Brain Injury post cardiopulm arrest Interval history: Seen and examined. Respiratory status worsening this AM--CXR reviewed with Dr. Romo. Continues to have orthopnea, states has difficulty breathing this AM. No chest pain reported. Objective Vital Signs, Last 4 Hours Temp Pulse Resp BP Pulse Ox 12/05/18 07:21 97.6 F 78 14 161/87 100 General: Other HEENT: Atraumatic, Normocephaly Cardiac: Reg Rate and Rhythm, Normal S1 and S2 Lungs: Other (decreased, rales throughout) Neuro: Alert and responsive (to self) Abdomen: Other (large, obese) Extremities: Other (large LE, 2-3+ LE edema) Results 12/05/18 03:35 12/05/18 03:35 Lab Results 12/05/18 12/05/18 03:35 03:35 WBC 6.6 Hgb 8.4 L Hct 27.9 L Plt Count 169 Sodium 141 Potassium 3.5 Chloride 107 Carbon Dioxide 27 BUN 35 H Creatinine 1.96 H Glucose 117 H Calcium 8.4 L Active Medications Acetaminophen (Tylenol) 650 mg PO Q6HR PRN PRN Reason: Mild Pain/Fever Stop: 05/29/19 20:41 Last Admin: 12/04/18 23:21 Dose: 650 mg Documented by: Albuterol Sulfate (Albuterol Inhaler) 2 puff IH [id number] PRN PRN Reason: Shortness Of Breath/Wheezing Stop: 06/05/19 02:14 Albuterol/Ipratropium (Duoneb) 3 ml IH BIDRESP PRN PRN Reason: Shortness Of Breath Stop: 06/05/19 02:14 Last Admin: 12/04/18 22:52 Dose: 3 ml Documented by: Artificial Tears (Akwa Tears) 1 drop BOTH EYES Q2HR PRN; Protocol PRN Reason: Dry Eyes Stop: 05/29/19 20:41 Carvedilol (Coreg) 6.25 mg PO BIDWM [facility]; Protocol Stop: 06/03/19 06:01 Last Admin: 12/05/18 09:39 Dose: 6.25 mg Documented by: Dextrose/Water (Dextrose 50% (Syg)) 25 ml IVP AD PRN PRN Reason: Hypoglycemia Stop: 05/29/19 22:54 Furosemide (Lasix) 80 mg IVP BIDDIURETIC [facility] Stop: 06/06/19 09:46 Glucagon (Glucagen) 1 mg IM ONCE PRN PRN Reason: Hypoglycemia Stop: 05/29/19 22:54 Glucose (Gluctose) 15 gm PO ONCE PRN PRN Reason: Hypoglycemia Stop: 05/29/19 22:54 Glucose (Gluctose) 30 gm PO ONCE PRN PRN Reason: Hypoglycemia Stop: 05/29/19 22:54 Heparin Sodium (Porcine) (Heparin) 5,000 unit SQ Q8HCO [facility] Stop: 05/29/19 22:01 Last Admin: 12/05/18 05:43 Dose: 5,000 unit Documented by: Dextrose (Dextrose 5%) 1,000 mls @ 100 mls/hr IVC .Q10H PRN PRN Reason: HYPOGLYCEMIA Stop: 05/29/19 22:54 Piperacillin Sod/Tazobactam (Sod 3.375 gm/ Sodium Chloride) 100 mls @ 25 mls/hr IVPB Q8HR [facility] Stop: 12/06/18 16:01 Last Admin: 12/05/18 09:40 Dose: 25 mls/hr Documented by: Insulin Human Lispro (Humalog) 0 units SQ HS [facility]; Protocol Stop: 06/01/19 21:01 Last Admin: 12/04/18 22:01 Dose: Not Given Documented by: Insulin Human Lispro (Humalog) 0 units SQ TIDAC [facility]; Protocol Stop: 06/01/19 16:31 Last Admin: 12/05/18 07:51 Dose: Not Given Documented by: Ketoconazole (Nizoral Cream) 1 appl TP BID [facility] Stop: 05/30/19 09:01 Last Admin: 12/05/18 10:07 Dose: 1 appl Documented by: Melatonin (Melatonin) 3 mg PO HS PRN PRN Reason: Insomnia Stop: 06/04/19 02:54 Last Admin: 12/04/18 23:21 Dose: 3 mg Documented by: Menthol/Methyl Salicylate (Bengay) 1 appl TP BID PRN PRN Reason: Pain Stop: 06/02/19 22:55 Last Admin: 12/04/18 21:53 Dose: 1 appl Documented by: Naloxone HCl (Narcan) 0.4 mg IVP Q2MPRN PRN PRN Reason: SEE COMMENTS Stop: 05/29/19 20:41 Omeprazole (Prilosec) 20 mg PO DAILY@0630 [facility]; Protocol Stop: 06/07/19 06:31 Ondansetron HCl (Zofran Odt) 4 mg SL Q6H PRN PRN Reason: Nausea And Vomiting Stop: 06/06/19 03:13 Last Admin: 12/05/18 09:39 Dose: 4 mg Documented by: Potassium Chloride (Potassium Chloride) 40 meq PO DAILY [facility] Stop: 06/04/19 09:01 Last Admin: 12/05/18 09:39 Dose: 40 meq Documented by: Tramadol HCl (Ultram) 50 mg PO BID PRN PRN Reason: Moderate Pain Stop: 06/04/19 12:13 Last Admin: 12/05/18 09:39 Dose: 50 mg Documented by: - Imaging and Cardiology Chest Xray: report reviewed Echo: report reviewed - EKG Interpretation EKG results cardiology: personally reviewed Consult Discharge Plan - Plan Referrals: Ander Blankenship MD [Primary Care Provider] -
[2018-12-05] MEDS: Ketoconazole 2% CRM 15 GM TUBE TP SCH ×2 (10:07→20:28)
--- NOTE | 2018-12-05 10:52 | Internal Med Progress Note ---
Hospitalist Progress Note - Encounter Date of Encounter: 12/05/18 Time of Encounter: 10:52 - Subjective Interval History: Patient is still cannot lie flat. Worsening chest x-ray. Review of the lab and it web development consultant notes Denies fever chills nausea vomiting headache dizziness chest pain abdominal pain diarrhea - Exam Vitals: Temp Pulse Resp BP Pulse Ox 97.6 F 85 18 136/79 90 12/05/18 10:11 12/05/18 10:11 12/05/18 10:11 12/05/18 10:11 12/05/18 10:11 Exam: General appearance: No acute distress at this time but required BiPAP in the night, A&O X 3 . At present 6 L oxygen by nasal cannula Head exam: Atraumatic Eye exam: EOMI, PERRLA ENT exam: Moist oral mucosa Neck nontender, supple Respiratory exam: Decreased breath sound with few crepitation bilaterally Cardiovascular exam: Regular rate and rhythm, no systolic murmur Abdominal exam: Soft, nontender, nondistended, positive bowel sounds. Chronic Harper catheter Extremities exam: No calf tenderness, +2 bilateral pedal edema Present: Skin-no rash, warm, dry, intact Neurological exam: Alert, awake, oriented 3, CN II-XII intact, no focal deficits. No facial droop. Slow speech - Assessment and Plan (1) CHF (congestive heart failure) Current Visit: Yes Status: Chronic Assessment and Plan: Hx of systolic and diastolic heart failure. TTE 11/28/18: EF 50%, mild LV systolic dysfunction, mild lv dilation with concentric hypertrophy, mild lv diastolic dysfunction with hypokinesis, mod mod PH Continue BB and hold acei/arb for current JENN -Gentle diuresis with lasix given renal function Patient is still has crepitation with slight pedal edema, worsening chest x-ray while on Lasix 40 mg IV twice a day therefore will change Lasix 80 mg IV twice a day with a strict I&O's and daily weight. Continue potassium supplementation (2) Anoxic brain injury Current Visit: Yes Status: Suspected Assessment and Plan: Likely anoxic brain injury 2/2 resp arrest at home facility -Completed hypothermia protocol 11/28/18 s/p cardiac arrest Patient was in ICU but intubated on mechanical ventilation but eventually improved therefore extubated. Neurologist on board. EEG 11/28/18: Consistent with severe generalized encephalopathy Improving with regards to his cognitive status. Continue PT OT (3) Diabetes Current Visit: Yes Status: Chronic Assessment and Plan: Well controlled. Insulin sliding scale with Accu-Chek. Diabetes diet. A1c 6.6 (4) Sepsis Current Visit: Yes Status: Suspected Assessment and Plan: Suspected sepsis on arrival and is started on empiric treatment. Chest x-ray with left hemithorax complete opacification pneumonia versus effusion Initially broader spectrum antibiotic Rocephin and Levaquin and vancomycin dose and is started but eventually stopped all antibiotics except continuation of Zosyn for total 7-10 days. Urine culture 11/27/18 with growth of E faecalis and P stuartii -Sputum culture 11/28/18 with growth of corynebacterium and psuedomonas. Corynebacterium likely contaminant during obtaining sample. -MRSA swab pos Blood culture on 11/28/2018-with no growth yet History of recurrent pseudomonas UTI, frequent episodes PNA (5) JENN (acute kidney injury) Current Visit: Yes Status: Acute Assessment and Plan: SCr 2.25 on arrival, baseline SCr 1.2 Suspect d/t decreased renal perfusion in setting of cardiac arrest stable but is still elevated. Monitor BMP. Avoid nephrotoxic drugs (6) Hyperkalemia Current Visit: Yes Status: Acute Assessment and Plan: resolved. (7) Respiratory arrest before cardiac arrest Current Visit: Yes Status: Acute Assessment and Plan: Per cardiology: -Unconscious when EMS arrived at [facility], bradycardic with O2 in 80's. Per ED report , patient had a pulse and detectable rhythm on arrival, then coded. ROSC was achieved after 1 round CPR and 1 dose epinephrine. Found to be hyperkalemic (7, then 7.2). -Troponin 0.04 x 3. TTE completed--LVEF 50%. Mild segmental left ventricular systolic dysfunction. Moderate with mild-moderate AR. -ECG after arrival appears to be accelerated idioventricular, then repeat ECG improved and comparable to prior (inferior infarct). -ICD interrogated (Hx NICMP) --met JJ 02/2018. Last NSVT noted was 11/15, but unclear if device is still sensing or able to deliver therapies. -Recommend ICD generator change prior to discharge once clinically improved-plan to get done tomorrow after more diuresis so that patient can lie flat for the procedure (8) Cardiac arrest with successful resuscitation Current Visit: Yes Status: Acute Assessment and Plan: ROSC was achieved after 1 round CPR and 1 dose epinephrine in ED Initial troponin < 0.03 Cardiology on board (9) Generalized weakness Current Visit: Yes Status: Acute Assessment and Plan: PT OT on board. needs more motivation (10) Swallowing difficulty Current Visit: Yes Status: Acute Assessment and Plan: As per nursing staff there was concern for choking liquid but as per patient he has choking spell while taking liquid lying flat otherwise denies any swallowing difficulty for liquid or solid. Speech therapist consultation. Further diet recommendation as per speech therapist (11) DVT prophylaxis Current Visit: No Status: Acute Assessment and Plan: Heparin subcutaneous - Time Spent with Patient Total time spent is greater than 50% in coordination of care (as documented) at patient's floor/unit and/or counseling patient: 25 - 35 minutes Plan of Care Discussed with: patient Internal Medicine: Result - Labs CBC & Chem 7: 12/05/18 03:35 12/05/18 03:35 Labs: Short CBC 12/05/18 Range/Units 03:35 WBC 6.6 (4.3-11.1) K/mcL Hgb 8.4 L (12.9-16.9) g/dL Hct 27.9 L (37.5-50.1) % Plt Count 169 (140-400) K/mcL Neutrophils # 4.0 (1.6-8.9) K/mcL BMP 12/05/18 03:35 Sodium 141 Potassium 3.5 Chloride 107 Carbon Dioxide 27 BUN 35 H Creatinine 1.96 H Glucose 117 H Calcium 8.4 L - ABG Interpretation ABG results: ABG ABG pH 7.31 pH Units (7.32-7.45) L 11/29/18 05:07 ABG pCO2 43 mmHg (35-45) 11/29/18 05:07 ABG pO2 87 mmHg (85-104) 11/29/18 05:07 ABG O2 Saturation 96 % (95-98) 11/29/18 05:07 PT/INR, D-dimer PT 13.2 Seconds (9.4-12.1) H 11/27/18 15:25 - Impressions Impressions Chest X-Ray 12/05/18 00:00 IMPRESSION: 1. Worsening pulmonary edema. 2. No definite pleural effusion, although, soft tissue artifact limits the evaluation of the left lung base. 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
[2018-12-05] MEDS: Furosemide 40 MG/4 ML VIAL IVP SCH ×3 (11:16→19:21)
[2018-12-05] MEDS: Acetaminophen 325 MG TABLET PO PRN ×2 (14:57→21:56)
[2018-12-05 19:10] LABS: Calcium 8.4 mg/dL (8.6-10.3)
[2018-12-05] MEDS: Methyl Salicylate/Menthol 28 GM TUBE TP PRN (20:28)
[2018-12-05] MEDS: Melatonin 3 MG TABLET PO PRN (20:28)
[2018-12-06] MEDS: Piperacillin/Tazobactam 3.375 GM in 0.9 % Sodium Chloride Mini Bag 100 ML IVPB SCH ×3 (00:03→16:36)
[2018-12-06 04:56] LABS: Basophils % 0.5 %; Eosinophils # 0.4 K/mcL (0.0-0.6); Eosinophils % 6.1 %; Hematocrit 26.7 % (37.5-50.1); Hemoglobin 7.8 g/dL (12.9-16.9); Lymphocytes # 1.7 K/mcL (0.6-4.6); Lymphocytes % 28.1 %; Mean Corpuscular HGB Conc 29.2 g/dL (31.6-35.5); Mean Platelet Volume 10.9 fL (9.4-12.4); Monocytes # 0.5 K/mcL (0.0-1.3); Monocytes % 8.1 %; Neutrophils # 3.3 K/mcL (1.6-8.9); Platelet Count 143 K/mcL (140-400); Red Cell Distribution Width 18.2 % (11.5-14.5); Segmented Neutrophils % 56.2 %
[2018-12-06 05:27] LABS: Calcium 6.7 mg/dL (8.6-10.3); Potassium 3.2 mEq/L (3.5-5.1)
[2018-12-06] MEDS: *HR* Heparin 5,000 UNIT/ML VIAL SQ SCH ×3 (06:41→20:04)
[2018-12-06] MEDS: Insulin LISPRO 300 UNITS/3 ML VIAL SQ SCH ×4 (08:33→20:25)
[2018-12-06] MEDS: Ketoconazole 2% CRM 15 GM TUBE TP SCH ×2 (08:48→20:06)
[2018-12-06] MEDS: Furosemide 40 MG/4 ML VIAL IVP SCH ×2 (08:48→16:31)
[2018-12-06] MEDS: traMADol 50 MG TABLET PO PRN ×2 (09:07→23:56)
--- NOTE | 2018-12-06 10:43 | Cardiology Progress Note ---
Date of Encounter: 12/06/18 Time of Encounter: 10:41 Assessment and Plan (1) CHF (congestive heart failure) Current Visit: Yes Status: Chronic Per cardiology: -Known NICM, TTE this admission with LVEF 50%. Mild segmental left ventricular systolic dysfunction. -On BB (coreg). NO celestina/arb due to renal function. -Continues to have significant volume overnight upon exam, CXR (12/05) shows worsening pulmonary edema. 12/05 increased lasix to 80 mg IV BID. Renal function improved/stable. -Cumulative I&O: -916 mLs -Strict i/os, fluid restriction, daily weights. -Agree with cautious diuresis, monitor renal function. -Will repeat CXR tomorrow AM. Currently on BiPAP. Qualifiers: Heart failure type: diastolic Heart failure chronicity: acute on chronic Qualified Code(s): I50.33 - Acute on chronic diastolic (congestive) heart failure (2) Respiratory arrest before cardiac arrest Current Visit: Yes Status: Acute Per cardiology: -Unconscious when EMS arrived at [facility], bradycardic with O2 in 80's. Per ED report, patient had a pulse and detectable rhythm on arrival, then coded. ROSC was achieved after 1 round CPR and 1 dose epinephrine. Found to be hyperkalemic (7, then 7.2). Now resolved. -Troponin 0.04 x 3. TTE completed--LVEF 50%. Mild segmental left ventricular systolic dysfunction. Moderate with mild-moderate AR. -ECG after arrival appears to be accelerated idioventricular, then repeat ECG improved and comparable to prior (inferior infarct). -ICD interrogated (Hx NICMP) --met JJ 02/2018. Last NSVT noted was 11/15, but unclear if device is still sensing or able to deliver therapies. -Recommend ICD generator change prior to discharge once clinically improved. Intermittent wide QRS noted on telemetry. NSVT noted overnight, max 3 beats. -Patient is not clinically stable for ICD generator change. EP will continue to follow peripherally. (3) Elevated troponin Current Visit: No Status: Acute Per cardiology: -Troponin 0.04, 0.04, 0.04--borderline in setting of arrest, JENN, hyperkalemia and PNA vs pulmonary edema with Complete opacification of the left hemithorax on CXR. -CXR today, 12/05 due to worsening respiratory distress, noted to have worsening pulmonary edema. -Demand ischemia, nondiagnostic for ACS. Cardiac rehab not warranted. Discussion w patient/family: The assessment and plan as outlined above was discussed with the patient and/or family members who expressed understanding and agreement. All questions were answered. Thank you for involving us in the care of your patient. Please call with any questions. I will discuss all the above with Dr. Romo and make changes as necessary. Subjective Principal diagnosis: Anoxic Brain Injury post cardiopulm arrest Interval history: Currently on BiPAP. No acute complaints. Objective Vital Signs, Last 4 Hours Temp Pulse Resp BP Pulse Ox 12/06/18 07:22 97.7 F 70 20 146/70 92 Vital Signs Temp Pulse Resp BP Pulse Ox 12/06/18 07:22 97.7 F 70 20 146/70 92 12/06/18 05:16 98.5 F 68 22 140/76 99 12/05/18 23:01 98.3 F 75 16 130/77 95 12/05/18 19:19 98.1 F 72 18 130/63 94 12/05/18 16:18 97.6 F 74 20 140/69 93 Intake and Output 12/05/18 12/06/18 12/06/18 23:59 07:59 15:59 Intake Total 160 / 480 220 / 220 Output Total 700 / 1050 1200 / 1200 Balance -540 / -570 -980 / -980 Intake: IV Fluids 100 / 300 100 / 100 Zosyn 3.375 GM In 0.9 % Sodium 100 / 300 100 / 100 Chloride (Mini-Bag +) 100 ML @ 25 mls/hr IVPB Q8HR [facility] Rx#: [id number] Oral 60 / 180 120 / 120 Output: Catheter 700 / 1050 1200 / 1200 Other: Blood Glucose* 142 113 General: Conversant, No Apparent Distress HEENT: Atraumatic, Normocephaly, Mucus Membranes Moist Neck: Normal carotid pulses Cardiac: Reg Rate and Rhythm, Normal S1 and S2, No Murmur Lungs: Other (diminished) Neuro: Alert and responsive, No focal deficits noted Abdomen: Soft, Non-Tender Skin: No rashes noted on visualized skin Musculoskeletal: No Chest Wall Tenderness Extremities: Other (2+ BLE edema) Results 12/06/18 04:20 12/06/18 04:20 Lab Results 12/05/18 12/06/18 12/06/18 17:00 04:20 04:20 WBC 5.9 Hgb 7.8 L Hct 26.7 L Plt Count 143 Sodium 141 141 Potassium 4.0 3.2 L Chloride 107 110 H Carbon Dioxide 30 H 25 BUN 35 H 31 H Creatinine 1.88 H 1.59 H Glucose 135 H 91 Calcium 8.4 L 6.7 L Short CBC 12/06/18 Range/Units 04:20 WBC 5.9 (4.3-11.1) K/mcL Hgb 7.8 L (12.9-16.9) g/dL Hct 26.7 L (37.5-50.1) % Plt Count 143 (140-400) K/mcL Neutrophils # 3.3 (1.6-8.9) K/mcL BMP 12/06/18 12/05/18 Range/Units 04:20 17:00 Sodium 141 141 (136-145) mEq/L Potassium 3.2 L 4.0 (3.5-5.1) mEq/L Chloride 110 H 107 (98-107) mEq/L Carbon Dioxide 25 30 H (23-29) mEq/L BUN 31 H 35 H (8-23) mg/dL Creatinine 1.59 H 1.88 H (0.70-1.30) mg/dL Glucose 91 135 H (70-105) mg/dL Calcium 6.7 L 8.4 L (8.6-10.3) mg/dL Active Medications Acetaminophen (Tylenol) 650 mg PO Q6HR PRN PRN Reason: Mild Pain/Fever Stop: 05/29/19 20:41 Last Admin: 12/05/18 21:56 Dose: 650 mg Documented by: Albuterol Sulfate (Albuterol Inhaler) 2 puff IH [id number] PRN PRN Reason: Shortness Of Breath/Wheezing Stop: 06/05/19 02:14 Albuterol/Ipratropium (Duoneb) 3 ml IH BIDRESP PRN PRN Reason: Shortness Of Breath Stop: 06/05/19 02:14 Last Admin: 12/04/18 22:52 Dose: 3 ml Documented by: Artificial Tears (Akwa Tears) 1 drop BOTH EYES Q2HR PRN; Protocol PRN Reason: Dry Eyes Stop: 05/29/19 20:41 Carvedilol (Coreg) 6.25 mg PO BIDWM [facility]; Protocol Stop: 06/03/19 06:01 Last Admin: 12/06/18 08:47 Dose: 6.25 mg Documented by: Dextrose/Water (Dextrose 50% (Syg)) 25 ml IVP AD PRN PRN Reason: Hypoglycemia Stop: 05/29/19 22:54 Furosemide (Lasix) 80 mg IVP BIDDIURETIC EARLENE Stop: 06/06/19 09:46 Last Admin: 12/06/18 08:48 Dose: 80 mg Documented by: Glucagon (Glucagen) 1 mg IM ONCE PRN PRN Reason: Hypoglycemia Stop: 05/29/19 22:54 Glucose (Gluctose) 15 gm PO ONCE PRN PRN Reason: Hypoglycemia Stop: 05/29/19 22:54 Glucose (Gluctose) 30 gm PO ONCE PRN PRN Reason: Hypoglycemia Stop: 05/29/19 22:54 Heparin Sodium (Porcine) (Heparin) 5,000 unit SQ Q8HCO [facility] Stop: 05/29/19 22:01 Last Admin: 12/06/18 06:41 Dose: 5,000 unit Documented by: Dextrose (Dextrose 5%) 1,000 mls @ 100 mls/hr IVC .Q10H PRN PRN Reason: HYPOGLYCEMIA Stop: 05/29/19 22:54 Piperacillin Sod/Tazobactam (Sod 3.375 gm/ Sodium Chloride) 100 mls @ 25 mls/hr IVPB Q8HR [facility] Stop: 12/06/18 16:01 Last Admin: 12/06/18 08:48 Dose: 25 mls/hr Documented by: Insulin Human Lispro (Humalog) 0 units SQ HS [facility]; Protocol Stop: 06/01/19 21:01 Last Admin: 12/05/18 20:26 Dose: Not Given Documented by: Insulin Human Lispro (Humalog) 0 units SQ TIDAC [facility]; Protocol Stop: 06/01/19 16:31 Last Admin: 12/06/18 08:33 Dose: Not Given Documented by: Ketoconazole (Nizoral Cream) 1 appl TP BID [facility] Stop: 05/30/19 09:01 Last Admin: 12/06/18 08:48 Dose: 1 appl Documented by: Melatonin (Melatonin) 3 mg PO HS PRN PRN Reason: Insomnia Stop: 06/04/19 02:54 Last Admin: 12/05/18 20:28 Dose: 3 mg Documented by: Menthol/Methyl Salicylate (Bengay) 1 appl TP BID PRN PRN Reason: Pain Stop: 06/02/19 22:55 Last Admin: 12/05/18 20:28 Dose: 1 appl Documented by: Naloxone HCl (Narcan) 0.4 mg IVP Q2MPRN PRN PRN Reason: SEE COMMENTS Stop: 05/29/19 20:41 Omeprazole (Prilosec) 20 mg PO DAILY@0630 [facility]; Protocol Stop: 06/07/19 06:31 Last Admin: 12/06/18 06:41 Dose: 20 mg Documented by: Ondansetron HCl (Zofran Odt) 4 mg SL Q6H PRN PRN Reason: Nausea And Vomiting Stop: 06/06/19 03:13 Last Admin: 12/05/18 09:39 Dose: 4 mg Documented by: Potassium Chloride (Potassium Chloride) 40 meq PO DAILY [facility] Stop: 06/04/19 09:01 Last Admin: 12/06/18 08:47 Dose: 40 meq Documented by: Tramadol HCl (Ultram) 50 mg PO BID PRN PRN Reason: Moderate Pain Stop: 06/04/19 12:13 Last Admin: 12/06/18 09:07 Dose: 50 mg Documented by: - EKG Interpretation EKG results cardiology: other (12 hr tele AVG HR 71) Consult Discharge Plan - Plan Referrals: Ander Blankenship MD [Primary Care Provider] -
[2018-12-06] MEDS: Acetaminophen 325 MG TABLET PO PRN ×2 (14:06→20:32)
--- NOTE | 2018-12-06 14:41 | Internal Med Progress Note ---
Hospitalist Progress Note - Encounter Date of Encounter: 12/06/18 Time of Encounter: 14:39 - Subjective Interval History: Patient seen and examined at bedside. When I examined the patient is on BiPAP and therefore cannot communicate completely but he did spontaneously wake up and would respond to verbal commands. He did not appear to be any acute distress. He was able to lie flat and he denied any discomfort or shortness of breath with lying flat. Denies any chest pain. - Exam Vitals: Temp Pulse Resp BP Pulse Ox 98.7 F 81 20 130/99 91 12/06/18 12:03 12/06/18 12:03 12/06/18 12:03 12/06/18 12:03 12/06/18 12:03 Exam: Gen.: No acute distress. Heart: Regular rate and rhythm, no murmurs, rubs or gallops Lungs: Lung sounds diminished diffusely, no rales appreciated Abdomen: Soft, nontender, nondistended, hypoactive bowel sounds - Assessment and Plan (1) CHF (congestive heart failure) Current Visit: Yes Status: Chronic Assessment and Plan: Overall patient appears to be improving. Cardiology following and have increased his Lasix to 80 mg IV twice a day. He is -1.6 L for his entire hospitalization and -1.7 L so far today. Continue IV diuresis as his renal function continues to improve. Closely monitor renal function. (2) Diabetes Current Visit: Yes Status: Chronic Assessment and Plan: Blood sugar under good control this time. Continue sliding scale insulin. (3) Sepsis Current Visit: Yes Status: Resolved Assessment and Plan: Resolved at this time. No leukocytosis or fever. Secondary to suspected pneumonia. Today is day 7 of Zosyn, will discontinue (4) JENN (acute kidney injury) Current Visit: Yes Status: Acute Assessment and Plan: Creatinine continues to improve, likely due to ongoing diuresis and setting of cardiorenal syndrome.Closely Monitor creatinine (5) Cardiac arrest with successful resuscitation Current Visit: Yes Status: Acute Assessment and Plan: ROSC was achieved after 1 round CPR and 1 dose epinephrine in ED. per cardiology patient will need ICD generator change this hospitalization, we will complete per their recommendations. Nothing by mouth at midnight for possible procedure tomorrow. (6) Anoxic brain injury Current Visit: Yes Status: Suspected Assessment and Plan: Baseline unclear but patient does appear to have improved mental status. (7) Swallowing difficulty Current Visit: Yes Status: Acute Assessment and Plan: Patient evaluated by speech therapy who recommended thin liquids. (8) DVT prophylaxis Current Visit: No Status: Acute Assessment and Plan: Heparin 5000 units subcutaneous every 8 hours. - Time Spent with Patient Total time spent is greater than 50% in coordination of care (as documented) at patient's floor/unit and/or counseling patient: Internal Medicine: Result - Labs CBC & Chem 7: 12/06/18 04:20 12/06/18 04:20 Labs: Short CBC 12/06/18 Range/Units 04:20 WBC 5.9 (4.3-11.1) K/mcL Hgb 7.8 L (12.9-16.9) g/dL Hct 26.7 L (37.5-50.1) % Plt Count 143 (140-400) K/mcL Neutrophils # 3.3 (1.6-8.9) K/mcL BMP 12/05/18 12/06/18 17:00 04:20 Sodium 141 141 Potassium 4.0 3.2 L Chloride 107 110 H Carbon Dioxide 30 H 25 BUN 35 H 31 H Creatinine 1.88 H 1.59 H Glucose 135 H 91 Calcium 8.4 L 6.7 L - ABG Interpretation ABG results: ABG ABG pH 7.31 pH Units (7.32-7.45) L 11/29/18 05:07 ABG pCO2 43 mmHg (35-45) 11/29/18 05:07 ABG pO2 87 mmHg (85-104) 11/29/18 05:07 ABG O2 Saturation 96 % (95-98) 11/29/18 05:07 PT/INR, D-dimer PT 13.2 Seconds (9.4-12.1) H 11/27/18 15:25 Consult Discharge Plan - Plan Referrals: Ander Blankenship MD [Primary Care Provider] - (Patient is from [facility] no PCP appointment needed) (1) CHF (congestive heart failure) Qualifiers: Heart failure type: diastolic Heart failure chronicity: acute on chronic Qualified Code(s): I50.33 - Acute on chronic diastolic (congestive) heart failure (2) Diabetes Qualifiers: Diabetes mellitus type: type 2 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
[2018-12-06] MEDS: Methyl Salicylate/Menthol 28 GM TUBE TP PRN (18:36)
[2018-12-07 02:21] LABS: Basophils % 0.6 %; Eosinophils # 0.3 K/mcL (0.0-0.6); Eosinophils % 3.5 %; Hematocrit 27.6 % (37.5-50.1); Hemoglobin 8.3 g/dL (12.9-16.9); Immature Granulocytes % 1.4 % (0-4); Lymphocytes # 1.9 K/mcL (0.6-4.6); Lymphocytes % 27.1 %; Mean Corpuscular HGB Conc 30.1 g/dL (31.6-35.5); Mean Corpuscular Hemoglobin 26.4 pg (28.0-33.3); Mean Corpuscular Volume 87.9 fL (83.0-100.0); Mean Platelet Volume 10.8 fL (9.4-12.4); Monocytes # 0.5 K/mcL (0.0-1.3); Neutrophils # 4.3 K/mcL (1.6-8.9); Platelet Count 147 K/mcL (140-400); Red Blood Count 3.14 M/mcL (4.19-5.50); Red Cell Distribution Width 18.3 % (11.5-14.5); Segmented Neutrophils % 60.4 %
[2018-12-07 02:41] LABS: Magnesium 1.9 mg/dL (1.6-2.6); Potassium 4.1 mEq/L (3.5-5.1)
[2018-12-07] MEDS: Methyl Salicylate/Menthol 28 GM TUBE TP PRN (04:45)
[2018-12-07] MEDS: *HR* Heparin 5,000 UNIT/ML VIAL SQ SCH ×3 (05:34→20:26)
[2018-12-07] MEDS: Insulin LISPRO 300 UNITS/3 ML VIAL SQ SCH ×4 (08:16→20:25)
[2018-12-07] MEDS: Ketoconazole 2% CRM 15 GM TUBE TP SCH ×2 (08:20→20:26)
--- NOTE | 2018-12-07 10:29 | Electrocardiograph Report ---
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
--- NOTE | 2018-12-07 10:35 | Electrocardiograph Report ---
[address] [address] Test Date: 2018-12-07 Pat Name: Angel Wright Department: 110 Room: 2N02 Gender: M Communications Lead: : 1950 Requested By: Kavita Wheeler Order Number: [id number] Reading MD: Jaime Merritt Measurements Intervals [place] Rate: 95 P: 89 OR: 186 QRS: 260 QRSD: 87 T: 54 QT: 351 QTc: 403 Interpretive Statements SINUS RHYTHM POSSIBLE LEFT ATRIAL ENLARGEMENT [-0.1mV P WAVE IN V1/V2] LOW QRS VOLTAGE [QRS DEFLECTION < 0.5/1.0 mV IN LIMB/CHEST LEADS] INFERIOR MYOCARDIAL INFARCTION [40+ ms Q WAVE AND/OR ST/T ABNORMALITY IN II/aVF], PROBABLY OLD ANTEROLATERAL MYOCARDIAL INFARCTION [40+ ms Q WAVE IN I/aVL/V3-V6], OF INDETERMINATE AGE Electronically Signed On 12-07-2018 10:34:38 EDT by Jaime Merritt
--- NOTE | 2018-12-07 11:12 | Internal Med Progress Note ---
Hospitalist Progress Note - Encounter Date of Encounter: 12/07/18 Time of Encounter: 11:10 - Subjective Interval History: Patient seen and examined at bedside. Patient states that he feels better today. He feels like his breathing is improved. He denies any chest pain or shortness of breath. - Exam Vitals: Temp Pulse Resp BP Pulse Ox 97.4 F L 84 24 153/93 93 12/07/18 07:14 12/07/18 07:14 12/07/18 07:14 12/07/18 07:14 12/07/18 07:14 Exam: Gen.: No acute distress. Alert and oriented 3 Heart: Regular rate and rhythm, no murmurs, rubs or gallops Lungs: Lung sounds diminished diffusely, no rales appreciated Abdomen: Soft, nontender, nondistended, hypoactive bowel sounds - Assessment and Plan (1) CHF (congestive heart failure) Current Visit: Yes Status: Chronic Assessment and Plan: Overall patient appears to be improving. Cardiology following and have increased his Lasix to 80 mg IV twice a day yesterday, however creatinine worsened today so morning doses been held and will continue a lower doses afternoon per cardiology recommendations. He is -1.6 L for his entire hospitalization and -1.7 L so far today. Continue IV diuresis as his renal function continues to improve. Closely monitor renal function. (2) Diabetes Current Visit: Yes Status: Chronic Assessment and Plan: Blood sugar under good control this time. Continue sliding scale insulin. (3) Sepsis Current Visit: Yes Status: Resolved Assessment and Plan: Resolved at this time. No leukocytosis or fever. Secondary to suspected pneumonia. Zosyn discontinued yesterday (4) JENN (acute kidney injury) Current Visit: Yes Status: Acute Assessment and Plan: Creatinine slightly worse today at 2.29, likely due to Lasix. Morning doses been held per cardiology recommendations and will restart at a lower dose this evening. Recheck creatinine tomorrow. Patient continues to have good urine output. (5) Cardiac arrest with successful resuscitation Current Visit: Yes Status: Acute Assessment and Plan: ROSC was achieved after 1 round CPR and 1 dose epinephrine in ED. per cardiology patient will need ICD generator change this hospitalization, hopefully today. (6) Anoxic brain injury Current Visit: Yes Status: Suspected Assessment and Plan: Baseline unclear but patient does appear to have improved mental status. (7) Swallowing difficulty Current Visit: Yes Status: Acute Assessment and Plan: Patient evaluated by speech therapy who recommended thin liquids. (8) DVT prophylaxis Current Visit: No Status: Acute Assessment and Plan: Heparin 5000 units subcutaneous every 8 hours. - Time Spent with Patient Total time spent is greater than 50% in coordination of care (as documented) at patient's floor/unit and/or counseling patient: Internal Medicine: Result - Labs CBC & Chem 7: 12/07/18 02:04 12/07/18 02:04 Labs: Short CBC 12/07/18 Range/Units 02:04 WBC 7.1 (4.3-11.1) K/mcL Hgb 8.3 L (12.9-16.9) g/dL Hct 27.6 L (37.5-50.1) % Plt Count 147 (140-400) K/mcL Neutrophils # 4.3 (1.6-8.9) K/mcL BMP 12/07/18 02:04 Sodium 138 Potassium 4.1 D Chloride 101 Carbon Dioxide 28 BUN 37 H Creatinine 2.29 H Glucose 144 H Calcium 8.0 L Cardiac Enzymes 12/07/18 12/07/18 Range/Units 02:04 06:25 Troponin I 0.04 H* 0.04 H* (< 0.04) ng/mL - ABG Interpretation ABG results: ABG ABG pH 7.31 pH Units (7.32-7.45) L 11/29/18 05:07 ABG pCO2 43 mmHg (35-45) 11/29/18 05:07 ABG pO2 87 mmHg (85-104) 11/29/18 05:07 ABG O2 Saturation 96 % (95-98) 11/29/18 05:07 PT/INR, D-dimer PT 13.2 Seconds (9.4-12.1) H 11/27/18 15:25 Consult Discharge Plan - Plan Referrals: Ander Blankenship MD [Primary Care Provider] - (Patient is from [facility] no PCP appointment needed) _ (1) CHF (congestive heart failure) Qualifiers: Heart failure type: diastolic Heart failure chronicity: acute on chronic Qualified Code(s): I50.33 - Acute on chronic diastolic (congestive) heart failur e (2) Diabetes Qualifiers: Diabetes mellitus type: type 2 Diabetes mellitus administrator health care facility insulin use: with administrator health care facility use Diabetes mellitus complication status: with hyperglycemia Qualified Code(s): E11.65 - Type 2 diabetes mellitus with hyperglycemia; Z79.4 - application development team lead (current) use of insulin; Z79.4 - longterm (current) use of insulin; Z79.4 - application development team lead (current) use of insulin; Z79.4 - application development team lead (current) use of insulin (3) Sepsis Qualifiers: Sepsis type: sepsis due to unspecified organism Qualified Code(s): A41.9 - Sepsis, unspecified organism (7) Swallowing difficulty Qualifiers: Dysphagia type: unspecified Qualified Code(s): R13.10 - Dysphagia, unspecified
[2018-12-07] MEDS: traMADol 50 MG TABLET PO PRN (11:53)
--- NOTE | 2018-12-07 13:12 | Cardiology Progress Note ---
Date of Encounter: 12/07/18 Time of Encounter: 13:10 Assessment and Plan (1) CHF (congestive heart failure) Current Visit: Yes Status: Chronic Per cardiology: -Known NICM, TTE this admission with LVEF 50%. Mild segmental left ventricular systolic dysfunction. -On BB (coreg). NO celestina/arb due to renal function. -Volume status appears to be improving. BLE edema still noted. Dyspnea improving. CXR (12/05) shows worsening pulmonary edema. 12/05 increased lasix to 80 mg IV BID. Renal function worsened this AM. Held AM Lasix dose. Resume PM at lower dose of 40mg BID. -Cumulative I&O: -905 mLs -Strict i/os, fluid restriction, daily weights. -Agree with cautious diuresis, monitor renal function. -Repeat CXR ordered, currently pending. Qualifiers: Heart failure type: diastolic Heart failure chronicity: acute on chronic Qualified Code(s): I50.33 - Acute on chronic diastolic (congestive) heart failure (2) Respiratory arrest before cardiac arrest Current Visit: Yes Status: Acute Per cardiology: -Unconscious when EMS arrived at [facility], bradycardic with O2 in 80's. Per ED rep ort, patient had a pulse and detectable rhythm on arrival, then coded. ROSC was achieved after 1 round CPR and 1 dose epinephrine. Found to be hyperkalemic (7, then 7.2). Now resolved. -Troponin 0.04 x 3. TTE completed--LVEF 50%. Mild segmental left ventricular systolic dysfunction. Moderate with mild-moderate AR. -ECG after arrival appears to be accelerated idioventricular, then repeat ECG improved and comparable to prior (inferior infarct). -ICD interrogated (Hx NICMP) --met JJ 02/2018. Last NSVT noted was 11/15, but unclear if device is still sensing or able to deliver therapies. -Recommend ICD generator change prior to discharge once clinically improved. -Volume status is improved today, on nasal cannula. Possible gen change tomorrow. Pt is aware. NPO after midnight tonight. (3) Elevated troponin Current Visit: No Status: Acute Per cardiology: -Troponin 0.04, 0.04, 0.04--borderline in setting of arrest, JENN, hyperkalemia and PNA vs pulmonary edema with Complete opacification of the left hemithorax on CXR. -CXR 12/05 due to worsening respiratory distress, noted to have worsening p ulmonary edema. -Demand ischemia, nondiagnostic for ACS. Cardiac rehab not warranted. Discussion w patient/family: The assessment and plan as outlined above was discussed with the patient and/or family members who expressed understanding and agreement. All questions were answered. Thank you for involving us in the care of your patient. Please call with any questions. I will discuss all the above with Dr. Romo and make changes as necessary. Subjective Principal diagnosis: Anoxic Brain Injury post cardiopulm arrest Interval history: Reports dyspnea is improving, on nasal cannula today. Objective Vital Signs, Last 4 Hours Temp Pulse Resp BP Pulse Ox 12/07/18 11:30 98.2 F 96 22 128/98 93 Vital Signs Temp Pulse Resp BP Pulse Ox 12/07/18 11:30 98.2 F 96 22 128/98 93 12/07/18 07:14 97.4 F L 84 24 153/93 93 12/07/18 05:01 99.7 F H 80 20 149/72 94 12/06/18 23:26 98.1 F 78 16 144/72 99 12/06/18 20:17 98.6 F 77 18 127/66 95 12/06/18 20:00 78 12/06/18 16:04 98.1 F 84 20 124/61 94 Intake and Output 12/06/18 12/07/18 12/07/18 23:59 07:59 15:59 Intake Total 420 / 980 100 / 100 Balance 420 / -1070 100 / 100 Intake: IV Fluids 100 / 100 Zosyn 3.375 GM In 0.9 % Sodium 100 / 100 Chloride (Mini-Bag +) 100 ML @ 25 mls/hr IVPB Q8HR [facility] Rx#: [id number] Oral 420 / 780 Other: Meal Dinner Percent of Meal Consumed 100% Blood Glucose* 121 119 114 General: Conversant, No Apparent Distress HEENT: Atraumatic, Normocephaly, Mucus Membranes Moist Neck: Normal carotid pulses Cardiac: Reg Rate and Rhythm, Normal S1 and S2, No Murmur Lungs: Other (diminished) Neuro: Alert and responsive, No focal deficits noted Abdomen: Soft, Non-Tender Skin: No rashes noted on visualized skin Musculoskeletal: No Chest Wall Tenderness Extremities: Other (moderate BLE edema) Results 12/07/18 02:04 12/07/18 02:04 Lab Results 12/07/18 12/07/18 12/07/18 02:04 02:04 02:04 WBC 7.1 Hgb 8.3 L Hct 27.6 L Plt Count 147 Sodium 138 Potassium 4.1 D Chloride 101 Carbon Dioxide 28 BUN 37 H Creatinine 2.29 H Glucose 144 H Calcium 8.0 L Magnesium 1.9 Troponin I 0.04 H* 12/07/18 06:25 WBC Hgb Hct Plt Count Sodium Potassium Chloride Carbon Dioxide BUN Creatinine Glucose Calcium Magnesium Troponin I 0.04 H* Short CBC 12/07/18 Range/Units 02:04 WBC 7.1 (4.3-11.1) K/mcL Hgb 8.3 L (12.9-16.9) g/dL Hct 27.6 L (37.5-50.1) % Plt Count 147 (140-400) K/mcL Neutrophils # 4.3 (1.6-8.9) K/mcL BMP 12/07/18 Range/Units 02:04 Sodium 138 (136-145) mEq/L Potassium 4.1 D (3.5-5.1) mEq/L Chloride 101 (98-107) mEq/L Carbon Dioxide 28 (23-29) mEq/L BUN 37 H (8-23) mg/dL Creatinine 2.29 H (0.70-1.30) mg/dL Glucose 144 H (70-105) mg/dL Calcium 8.0 L (8.6-10.3) mg/dL Cardiac Enzymes 12/07/18 12/07/18 Range/Units 06:25 02:04 Troponin I 0.04 H* 0.04 H* (< 0.04) ng/mL Active Medications Acetaminophen (Tylenol) 650 mg PO Q6HR PRN PRN Reason: Mild Pain/Fever Stop: 05/29/19 20:41 Last Admin: 12/06/18 20:32 Dose: 650 mg Documented by: Albuterol Sulfate (Albuterol Inhaler) 2 puff IH [id number] PRN PRN Reason: Shortness Of Breath/Wheezing Stop: 06/05/19 02:14 Albuterol/Ipratropium (Duoneb) 3 ml IH BIDRESP PRN PRN Reason: Shortness Of Breath Stop: 06/05/19 02:14 Last Admin: 12/04/18 22:52 Dose: 3 ml Documented by: Artificial Tears (Akwa Tears) 1 drop BOTH EYES Q2HR PRN; Protocol PRN Reason: Dry Eyes Stop: 05/29/19 20:41 Carvedilol (Coreg) 6.25 mg PO BIDWM EARLENE; Protocol Stop: 06/03/19 06:01 Last Admin: 12/07/18 08:16 Dose: 6.25 mg Documented by: Dextrose/Water (Dextrose 50% (Syg)) 25 ml IVP AD PRN PRN Reason: Hypoglycemia Stop: 05/29/19 22:54 Furosemide (Lasix) 40 mg IVP BIDDIURETIC EARLENE Stop: 06/08/19 17:01 Glucagon (Glucagen) 1 mg IM ONCE PRN PRN Reason: Hypoglycemia Stop: 05/29/19 22:54 Glucose (Gluctose) 15 gm PO ONCE PRN PRN Reason: Hypoglycemia Stop: 05/29/19 22:54 Glucose (Gluctose) 30 gm PO ONCE PRN PRN Reason: Hypoglycemia Stop: 05/29/19 22:54 Heparin Sodium (Porcine) (Heparin) 5,000 unit SQ Q8HCO EARLENE Stop: 05/29/19 22:01 Last Admin: 12/07/18 05:34 Dose: 5,000 unit Documented by: Dextrose (Dextrose 5%) 1,000 mls @ 100 mls/hr IVC .Q10H PRN PRN Reason: HYPOGLYCEMIA Stop: 05/29/19 22:54 Insulin Human Lispro (Humalog) 0 units SQ HS [facility]; Protocol Stop: 06/01/19 21:01 Last Admin: 12/06/18 20:25 Dose: Not Given Documented by: Insulin Human Lispro (Humalog) 0 units SQ TIDAC [facility]; Protocol Stop: 06/01/19 16:31 Last Admin: 12/07/18 11:54 Dose: Not Given Documented by: Ketoconazole (Nizoral Cream) 1 appl TP BID [facility] Stop: 05/30/19 09:01 Last Admin: 12/07/18 08:20 Dose: 1 appl Documented by: Melatonin (Melatonin) 3 mg PO HS PRN PRN Reason: Insomnia Stop: 06/04/19 02:54 Last Admin: 12/05/18 20:28 Dose: 3 mg Documented by: Menthol/Methyl Salicylate (Bengay) 1 appl TP BID PRN PRN Reason: Pain Stop: 06/02/19 22:55 Last Admin: 12/07/18 04:45 Dose: 1 appl Documented by: Naloxone HCl (Narcan) 0.4 mg IVP Q2MPRN PRN PRN Reason: SEE COMMENTS Stop: 05/29/19 20:41 Omeprazole (Prilosec) 20 mg PO DAILY@0630 [facility]; Protocol Stop: 06/07/19 06:31 Last Admin: 12/07/18 05:35 Dose: Not Given Documented by: Ondansetron HCl (Zofran Odt) 4 mg SL Q6H PRN PRN Reason: Nausea And Vomiting Stop: 06/06/19 03:13 Last Admin: 12/05/18 09:39 Dose: 4 mg Documented by: Potassium Chloride (Potassium Chloride) 40 meq PO BIDWM [facility] Stop: 06/07/19 17:01 Last Admin: 12/07/18 08:16 Dose: 40 meq Documented by: Tramadol HCl (Ultram) 50 mg PO BID PRN PRN Reason: Moderate Pain Stop: 06/04/19 12:13 Last Admin: 12/07/18 11:53 Dose: 50 mg Documented by: - EKG Interpretation EKG results cardiology: other (12 hr tele AVG HR 83, SR) Consult Discharge Plan - Plan Referrals: Ander Blankenship MD [Primary Care Provider] - (Patient is from [facility] no PCP appointment needed)
[2018-12-07] MEDS: Furosemide 40 MG/4 ML VIAL IVP SCH (16:50)
[2018-12-07] MEDS: Ipratropium/Albuterol Neb 3 ML IH PRN (23:00)
[2018-12-08] MEDS: *HR* Heparin 5,000 UNIT/ML VIAL SQ SCH ×3 (04:29→20:09)
[2018-12-08 04:49] LABS: Basophils % 0.6 %; Eosinophils # 0.2 K/mcL (0.0-0.6); Eosinophils % 2.6 %; Hematocrit 28.8 % (37.5-50.1); Hemoglobin 8.4 g/dL (12.9-16.9); Immature Granulocytes % 1.9 % (0-4); Lymphocytes # 1.5 K/mcL (0.6-4.6); Lymphocytes % 21.1 %; Mean Corpuscular HGB Conc 29.2 g/dL (31.6-35.5); Mean Corpuscular Hemoglobin 25.5 pg (28.0-33.3); Mean Corpuscular Volume 87.5 fL (83.0-100.0); Mean Platelet Volume 11.4 fL (9.4-12.4); Monocytes # 0.6 K/mcL (0.0-1.3); Monocytes % 8.4 %; Neutrophils # 4.7 K/mcL (1.6-8.9); Platelet Count 154 K/mcL (140-400); Red Blood Count 3.29 M/mcL (4.19-5.50); Red Cell Distribution Width 18.6 % (11.5-14.5); Segmented Neutrophils % 65.4 %
[2018-12-08 05:07] LABS: Calcium 8.6 mg/dL (8.6-10.3); Potassium 4.6 mEq/L (3.5-5.1)
--- NOTE | 2018-12-08 09:23 | Event Note ---
Date of Encounter: 12/08/18 Time of Encounter: 09:00 - Cardiology Event Note Seen and examined. Patient resting comfortably laying flat upon exam. Cumulative I&O: -[address] Nawaf Olsen, plan for ICD generator change today. Keep NPO. Plan also reviewed with primary service.
[2018-12-08] MEDS: Furosemide 40 MG/4 ML VIAL IVP SCH ×2 (09:35→15:32)
[2018-12-08] MEDS: Insulin LISPRO 300 UNITS/3 ML VIAL SQ SCH ×4 (09:51→20:11)
--- NOTE | 2018-12-08 10:02 | Discharge Summary ---
Orders not resulted at time of discharge: Pending orders 12/03/18 07:12 Bedside Spirometry Evaluation [EVAL] Routine 12/07/18 08:33 CXR, PA/Lateral [XR chest 2V] [XR] Routine 12/08/18 09:33 CL Generator Remove Replace [CL] Routine Date of Encounter: 12/08/18 Time of Encounter: 10:00 - Discharge Diagnosis (1) Cardiac arrest with successful resuscitation Priority: Primary Status: Acute (2) CHF (congestive heart failure) Priority: Primary Status: Chronic Qualifiers: Heart failure type: diastolic Heart failure chronicity: acute on chronic Qualified Code(s): I50.33 - Acute on chronic diastolic (congestive) heart failure (3) Diabetes Priority: Secondary Status: Chronic Qualifiers: Diabetes mellitus type: type 2 Diabetes mellitus local 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 insulin use: with local 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 use Diabetes mellitus complication status: with hyperglycemia Qualified Code(s): E11.65 - Type 2 diabetes mellitus with hyperglycemia; Z79.4 - terminal gauger (current) use of insulin; Z79.4 - terminal gauger (current) use of insulin; Z79.4 - shelter (current) use of insulin; Z79.4 - shelter (current) use of insulin (4) Sepsis Priority: Secondary Status: Resolved Qualifiers: Sepsis type: sepsis due to unspecified organism Qualified Code(s): A41.9 - Sepsis, unspecified organism (5) JENN (acute kidney injury) Priority: Secondary Status: Acute (6) Anoxic brain injury Priority: Secondary Status: Suspected (7) Swallowing difficulty Priority: Secondary Status: Resolved Qualifiers: Dysphagia type: unspecified Qualified Code(s): R13.10 - Dysphagia, unspecified Hospital course: Mr. Wright is a 68 year old male with history of congestive heart failure, COPD, diabetes who presented initially in cardiac arrest. He was having respiratory distress at the residential with hypoxia and then went into PEA. Patient underwent hypothermic protocol. He gradually recovered well and eventually was successfully extubated. Patient was evaluated by cardiology who found that his ICD generator was dysfunctional and therefore needed a replacement. This will be completed on the day of discharge. Patient will be discharged back to [facility] in stable condition. Discharge discussed with: patient - Time Spent with Patient Total time spent providing and/or coordinating discharge services: Time spent: Greater than 30 minutes (40 minutes) - Discharge Medications Prescriptions: New Potassium Chloride 40 meq PO BIDWM tab.er.prt Continued Aspirin [Lo-Dose Aspirin EC] 81 mg PO DAILY Sertraline [Zoloft] 100 mg PO DAILY Lovastatin 10 mg PO HS Carvedilol 12.5 mg PO BID Acetaminophen [Tylenol] 650 mg PO Q4HR PRN PRN Reason: Pain Phenol [Chloraseptic] 1 spr MM Q2H PRN PRN Reason: Sore Throat Fluticasone Propionate Nasal [Flonase] 2 spr NS DAILY Albuterol Sulfate [Albuterol Inhaler] 2 puff IH [id number] PRN inhaler PRN Reason: Shortness Of Breath/Wheezing Tiotropium [Spiriva] 18 mcg IH DAILYR inh Gabapentin [Neurontin] 300 mg PO TID Guaifenesin [Diabetic Tussin Ex] 10 ml PO Q4H PRN PRN Reason: Cough rOPINIRole [Requip] 0.25 mg PO HS Insulin Regular, Human [Novolin R] 0 unit SQ QIDAC Diclofenac Sodium [Diclozor] 1 each TP BID PRN PRN Reason: Pain Ondansetron ODT [Zofran ODT] 4 mg SL Q6HR PRN PRN Reason: Nausea Ipratropium/Albuterol Sulfate [Iprat-Albut 0.5-3(2.5) mg/3 ml] 3 ml IH BID PRN PRN Reason: Shortness Of Breath Tamsulosin HCl [Flomax] 0.4 mg PO DAILY Loperamide [Imodium] 2 mg PO Q4HR PRN MDD 8mg/24hr PRN Reason: Diarrhea Hyoscyamine SL [Levsin Sl] 0.125 mg SL Q2H PRN PRN Reason: Secretions Promethazine [Phenergan] 25 mg RC Q12H PRN PRN Reason: Nausea/Vomiting Saline Nasal [place] [[place] Nasal [place]] 1 spray NS DAILY PRN PRN Reason: nasal dryness Bisacodyl [Gentle Laxative] 10 mg RC DAILY PRN PRN Reason: Constipation Insulin NPH Human Isophane [Novolin N] 30 unit SQ HS Insulin NPH Human Isophane [Novolin N] 50 unit SQ QAM Acetaminophen [Tylenol 650mg SUPP] 650 mg RC Q4H PRN PRN Reason: Fever Fluticasone/Umeclidin/Vilanter [Trelegy Ellipta 100-62.5-25] 1 each IH DAILY Trazodone HCl 100 mg PO HS Tramadol HCl [Ultram] 50 mg PO Q4H PRN PRN Reason: Pain Lidocaine Patch [Lidoderm 5% patch] 1 each TP DAILY PRN PRN Reason: Pain Morphine Sulfate [Morphine Oral Solution] 0.25 ml PO Q4H PRN PRN Reason: Pain/Dyspnea Changed Furosemide [Lasix] 40 mg PO BID #0 Discontinued Potassium Chloride [K-Tab ER] 20 meq PO DAILY Home Medications: Aspirin [Lo-Dose Aspirin EC] 81 mg PO DAILY 12/10/16 [History] Sertraline [Zoloft] 100 mg PO DAILY 12/10/16 [History] Lovastatin 10 mg PO HS 04/07/17 [History] Acetaminophen [Tylenol] 650 mg PO Q4HR PRN 10/04/17 [History] Carvedilol 12.5 mg PO BID 10/04/17 [History] Phenol [Chloraseptic] 1 spr MM Q2H PRN 10/04/17 [History] Fluticasone Propionate Nasal [Flonase] 2 spr NS DAILY 12/12/17 [History] Albuterol Sulfate [Albuterol Inhaler] 2 puff IH [id number] PRN inhaler 01/17/18 [Rx] Tiotropium [Spiriva] 18 mcg IH DAILYR inh 01/17/18 [Rx] Bisacodyl [Gentle Laxative] 10 mg RC DAILY PRN 11/13/18 [History] Diclofenac Sodium [Diclozor] 1 each TP BID PRN 11/13/18 [History] Gabapentin [Neurontin] 300 mg PO TID 11/13/18 [History] Guaifenesin [Diabetic Tussin Ex] 10 ml PO Q4H PRN 11/13/18 [History] Hyoscyamine SL [Levsin Sl] 0.125 mg SL Q2H PRN 11/13/18 [History] Insulin Regular, Human [Novolin R] 0 unit SQ QIDAC 11/13/18 [History] Ipratropium/Albuterol Sulfate [Iprat-Albut 0.5-3(2.5) mg/3 ml] 3 ml IH BID PRN 11/13/18 [History] Loperamide [Imodium] 2 mg PO Q4HR PRN MDD 8mg/24hr 11/13/18 [History] Ondansetron ODT [Zofran ODT] 4 mg SL Q6HR PRN 11/13/18 [History] Promethazine [Phenergan] 25 mg RC Q12H PRN 11/13/18 [History] Saline Nasal [place] [[place] Nasal [place]] 1 spray NS DAILY PRN 11/13/18 [History] Tamsulosin HCl [Flomax] 0.4 mg PO DAILY 11/13/18 [History] rOPINIRole [Requip] 0.25 mg PO HS 11/13/18 [History] Acetaminophen [Tylenol 650mg SUPP] 650 mg RC Q4H PRN 11/14/18 [History] Insulin NPH Human Isophane [Novolin N] 30 unit SQ HS 11/14/18 [History] Insulin NPH Human Isophane [Novolin N] 50 unit SQ QAM 11/14/18 [History] Fluticasone/Umeclidin/Vilanter [Trelegy Ellipta 100-62.5-25] 1 each IH DAILY 11/27/18 [History] Lidocaine Patch [Lidoderm 5% patch] 1 each TP DAILY PRN 11/27/18 [History] Morphine Sulfate [Morphine Oral Solution] 0.25 ml PO Q4H PRN 11/27/18 [History] Tramadol HCl [Ultram] 50 mg PO Q4H PRN 11/27/18 [History] Trazodone HCl 100 mg PO HS 11/27/18 [History] Furosemide [Lasix] 40 mg PO BID #0 12/08/18 [Rx] Potassium Chloride 40 meq PO BIDWM tab.er.prt 12/08/18 [Rx] Allergies/Adverse Reactions: Allergy/AdvReac Type Severity Reaction Status Date / Time No Known Drug Allergies Allergy See Verified 08/20/17 15:01 Comments Date of admission: 11/27/18 19:42 Primary care physician: Ander Blankenship MD Consults: 11/27/18 17:42 Consult to Nephrology [CONS] Stat Consulting Provider: Danny Govea Reason for Consult: Hyperkalemia, hyperphosphatemia, hypocalcemia, JENN Time Notified: 17:44 Call Completed: Yes 11/27/18 20:40 Consult to Cardiology [CONS] Routine Comment: Consulting Provider: Cardiology Kayy Reason for Consult: s/p arrest Call Completed: Yes Consult to Neurology [CONS] Routine Consulting Provider: Neurology [facility] Reason for Consult: s/p arrest; ? anoxic injury Call Completed: No Consult to Pulmonology [CONS] Routine Consulting Provider: Pulm [facility] Kayy Reason for Consult: ICU management Call Completed: Yes 11/27/18 22:15 Consult to Surgery [CONS] Stat Consulting Provider: Gina Gray Reason for Consult: CVC placement Time Notified: 21:45 Call Completed: Yes 11/28/18 12:14 Consult to Interpret Exam [CONS] Routine Consulting Provider: Polo Pitt Consult to Interpret Exam: Interpret EEG 12/01/18 08:42 Consult to Occupational Therapy [CONS] Routine Comment: Evaluate, develop and implement POC Reason for Consult: Admitted with anoxic brain injury. Extubated 11/29/18 Does patient have active BEDREST order?: No Is patient medically & hemodynamically stable?: Yes Patient assessed for mobility or mobilized this visit?: No Consult to Physical Therapy [CONS] Routine Comment: Evaluate, develop and implement POC Reason for Consult: Admitted with anoxic brain injury. Extubated 11/29/18 Does patient have active BEDREST order?: No Is patient medically & hemodynamically stable?: Yes Patient assessed for mobility or mobilized this visit?: No 12/05/18 08:28 Consult to Invasive Line Access Team [CONS] Routine Reason for Consult: limited vascular access, remove central line Line Type: EPIV 12/05/18 09:04 Consult to Nurse Navigator [CONS] Routine Comment: CHF Discharging clinician: Polo Ponce Anticipated date of discharge: 12/08/18 - Constitutional Vitals: Temp Pulse Resp BP Pulse Ox 98.1 F 97 27 134/84 93 12/08/18 07:16 12/08/18 07:16 12/08/18 07:16 12/08/18 07:16 12/08/18 07:16 General appearance: Present: pleasant, no acute distress Exam: . - Respiratory Respiratory exam: Present: decreased breath sounds. Absent: rhonchi, wheezes - Cardiovascular Cardiovascular exam: Present: RRR. Absent: gallop, rubs, systolic murmur - Patient Status Disposition: Transfer SNF Condition: Fair Overall status at discharge: patient is progressing back to baseline - Discharge Instructions Follow Up With: Ander Blankenship MD [Primary Care Provider] - (Patient is from [facility] no PCP appointment needed) Additional Instructions: Please resume your home medications. Please participate in physical therapy. Please wear BiPAP at night and while sleeping Please return for any worsening symptoms. - Diet and Activity Activity: increase activity as tolerated, wear oxygen at all times Diet: diabetic diet, low salt diet
--- NOTE | 2018-12-08 10:25 | Physician Discharge Referral ---
ExtendedCare Referral Info Institutional Level of Care: Skilled - Diagnosis (1) Cardiac arrest with successful resuscitation Priority: Primary Status: Acute (2) CHF (congestive heart failure) Priority: Secondary Status: Chronic (3) Diabetes Priority: Secondary Status: Chronic (4) Sepsis Priority: Secondary Status: Resolved (5) JENN (acute kidney injury) Priority: Secondary Status: Acute (6) Anoxic brain injury Priority: Secondary Status: Suspected (7) Swallowing difficulty Priority: Secondary Status: Resolved Prognosis: Fair Aware of Diagnosis: Patient Aware of Prognosis: Patient - Transfer Medications Home Medications: Aspirin [Lo-Dose Aspirin EC] 81 mg PO DAILY 12/10/16 [History] Sertraline [Zoloft] 100 mg PO DAILY 12/10/16 [History] Lovastatin 10 mg PO HS 04/07/17 [History] Acetaminophen [Tylenol] 650 mg PO Q4HR PRN 10/04/17 [History] Carvedilol 12.5 mg PO BID 10/04/17 [History] Phenol [Chloraseptic] 1 spr MM Q2H PRN 10/04/17 [History] Fluticasone Propionate Nasal [Flonase] 2 spr NS DAILY 12/12/17 [History] Albuterol Sulfate [Albuterol Inhaler] 2 puff IH [id number] PRN inhaler 01/17/18 [Rx] Tiotropium [Spiriva] 18 mcg IH DAILYR inh 01/17/18 [Rx] Bisacodyl [Gentle Laxative] 10 mg RC DAILY PRN 11/13/18 [History] Diclofenac Sodium [Diclozor] 1 each TP BID PRN 11/13/18 [History] Gabapentin [Neurontin] 300 mg PO TID 11/13/18 [History] Guaifenesin [Diabetic Tussin Ex] 10 ml PO Q4H PRN 11/13/18 [History] Hyoscyamine SL [Levsin Sl] 0.125 mg SL Q2H PRN 11/13/18 [History] Insulin Regular, Human [Novolin R] 0 unit SQ QIDAC 11/13/18 [History] Ipratropium/Albuterol Sulfate [Iprat-Albut 0.5-3(2.5) mg/3 ml] 3 ml IH BID PRN 11/13/18 [History] Loperamide [Imodium] 2 mg PO Q4HR PRN MDD 8mg/24hr 11/13/18 [History] Ondansetron ODT [Zofran ODT] 4 mg SL Q6HR PRN 11/13/18 [History] Promethazine [Phenergan] 25 mg RC Q12H PRN 11/13/18 [History] Saline Nasal Brutus [[place] Nasal Brutus] 1 spray NS DAILY PRN 11/13/18 [History] Tamsulosin HCl [Flomax] 0.4 mg PO DAILY 11/13/18 [History] rOPINIRole [Requip] 0.25 mg PO HS 11/13/18 [History] Acetaminophen [Tylenol 650mg SUPP] 650 mg RC Q4H PRN 11/14/18 [History] Insulin NPH Human Isophane [Novolin N] 30 unit SQ HS 11/14/18 [History] Insulin NPH Human Isophane [Novolin N] 50 unit SQ QAM 11/14/18 [History] Fluticasone/Umeclidin/Vilanter [Trelegy Ellipta 100-62.5-25] 1 each IH DAILY 11/27/18 [History] Lidocaine Patch [Lidoderm 5% patch] 1 each TP DAILY PRN 11/27/18 [History] Morphine Sulfate [Morphine Oral Solution] 0.25 ml PO Q4H PRN 11/27/18 [History] Tramadol HCl [Ultram] 50 mg PO Q4H PRN 11/27/18 [History] Trazodone HCl 100 mg PO HS 11/27/18 [History] Furosemide [Lasix] 40 mg PO BID #0 12/08/18 [Rx] Potassium Chloride 40 meq PO BIDWM tab.er.prt 12/08/18 [Rx] Allergies/Adverse Reactions: Allergy/AdvReac Type Severity Reaction Status Date / Time No Known Drug Allergies Allergy See Verified 08/20/17 15:01 Comments - Respiratory Orders Oxygen / L per min (4), Other (BiPAP at night and any time while sleeping) Smoking Cessation: Smoking cessation has been advised. For more information, call the [place] Tobacco Quit Line at 5-062-CCSJ-NOW. - Ancillary Orders May use pressure relief devices daily prn - Advance Directives Code Status: Full Code - Mobility Orders Ambulate (pet PT) - Rehabiliation Orders Rehab Potential: Fair Rehab Orders: ROM Exercises, Evaluation for Physical Therapy, Evaluation for Occupational Therapy, Evaluation for Speech Therapy - Treatments Skin tear care topically daily PRN per policy, May check for fecal impaction rectally daily PRN - Diet Orders Cardiac CERTIFICATION: I certify that the transfer of the above named patient to an Extended Care Facility is necessary for the continuing treatment of the diagnosis listed. The above information is true and accurate reflection of patient's current co ndition. Confidential - Redisclosure prohibited without a patient's written consent.
[2018-12-08] MEDS: traMADol 50 MG TABLET PO PRN ×2 (11:37→20:08)
[2018-12-08] MEDS ORDERED: *HR* Midazolam HCl 5 MG/5 ML VIAL IVP ONE (14:13)
[2018-12-08] MEDS ORDERED: *HR* FentaNYL (PF) 100 MCG/2 ML VIAL ONE (14:13)
[2018-12-08] MEDS ORDERED: Water for inj. (sterile) 10 ML ONE (14:14)
[2018-12-08] MEDS ORDERED: 0.9 % Sodium Chloride 500 ML ONE (14:14)
--- NOTE | 2018-12-08 14:20 | Pre-Sedation Evaluation ---
Pre-sedation evaluation - Pre-sedation checklist Date of procedure: 12/08/18 Procedure: Generator Exchange Recent Vitals: Last Vital Signs Temp 98.1 F 12/08/18 11:28 Pulse 102 12/08/18 11:28 Resp 15 12/08/18 11:28 BP 153/70 12/08/18 11:28 Pulse Ox 87 12/08/18 11:28 H&P (including ROS) documented in medical record: Yes Previous reaction to sedatives/anesthetics: No Dietary Status: NPO after Midnight Airway Assessment: Micrognathia (under-bite, receding chin) absent Dentition: No loose teeth or bridges Possible difficult airway: No ASA Classification *see protocol: CLASS II-Mild systemic disease Plan of Care: Pt appropriate candidate for procedure/moderate/conscious sedation, Risks/benefits of procedure/sedation discussed w/ patient/family
[2018-12-08] MEDS ORDERED: 0.9 % Sodium Chloride 1,000 ML ONE (14:47)
[2018-12-08] MEDS: Ketoconazole 2% CRM 15 GM TUBE TP SCH ×2 (15:32→20:11)
[2018-12-08] MEDS: Acetaminophen 325 MG TABLET PO PRN ×2 (17:05→23:12)
[2018-12-08] MEDS: Ipratropium/Albuterol Neb 3 ML IH PRN (20:40)
[2018-12-08] MEDS: Ondansetron ODT 4 MG TAB.RAPDIS SL PRN (22:08)
[2018-12-09] MEDS: Ipratropium/Albuterol Neb 3 ML IH PRN ×3 (03:38→22:50)
[2018-12-09] MEDS: *HR* Heparin 5,000 UNIT/ML VIAL SQ SCH ×3 (04:37→21:25)
[2018-12-09] MEDS: Furosemide 40 MG/4 ML VIAL IVP SCH ×3 (07:27→18:36)
[2018-12-09] MEDS: Insulin LISPRO 300 UNITS/3 ML VIAL SQ SCH ×4 (07:29→21:20)
[2018-12-09] MEDS: Ketoconazole 2% CRM 15 GM TUBE TP SCH ×2 (08:38→21:21)
--- NOTE | 2018-12-09 08:55 | Pulmonology Progress Note ---
Date of Encounter: 12/09/18 Time of Encounter: 08:54 Assessment and Plan (1) Acute and chronic respiratory failure with hypoxia Current Visit: Yes Status: Acute The etiology of the patient's respiratory failure is multifactorial including decompensated heart failure COPD although I do not think he is having a COPD exacerbation and there is no evidence of infectious process in the lung at this time. He also suffers from obesity hypoventilation syndrome and sleep apnea. It also sounds like he has severe anxiety that is probably not fully controlled at this time As far as respiratory optimization go current strategy of aggressive diuresis as tolerated by kidney function is recommended he should be on a combination inhaler such as Symbicort daily and that he can use breathing treatments as needed (short acting beta agonist would be appropriate or combination short acting beta agonist/antimuscarinic) I do not feel that he would benefit from a dditional systemic glucocorticoids at this time. He does have a fairly large left-sided pleural effusion for which I have asked IR to perform therapeutic thoracentesis make this may help help facilitate laying flat but patient did not seem to sanguine about having this procedure done when I discussed it with him Otherwise may be difficult situation to get the patient calm enough to tolerate a procedure such as ICD placement and I suspected have to discuss the case with anesthesiologist about possibly doing the case under monitored sedation or possibly even anesthesia course the risk here would be increased however the risk assessment patient home without functioning ICD after a recent cardiac arrest is also to be considered. I will be happy to reevaluate the patient as needed if further questions exists thank you very much for calling me. Do not hesitate to call me with any questions or concerns Sameer Madsen [phone] (2) COPD (chronic obstructive pulmonary disease) Current Visit: No Status: Chronic Qualifiers: COPD type: unspecified COPD Qualified Code(s): J44.9 - Chronic obstructive pulmonary disease, unspecified (3) CHF (congestive heart failure) Current Visit: Yes Status: Chronic Qualifiers: Heart failure type: diastolic Heart failure chronicity: acute on chronic Qualified Code(s): I50.33 - Acute on chronic diastolic (congestive) heart fa ilure (4) Morbid obesity with BMI of 45.0-49.9, adult Current Visit: No Status: Chronic (5) Cardiac arrest with successful resuscitation Current Visit: Yes Status: Acute (6) Pleural effusion Current Visit: Yes Status: Acute Subjective Principal diagnosis: Anoxic Brain Injury post cardiopulm arrest Interval history: Patient is preparing for ICD placement and possible discharge from the hospital unfortunately he has been unable to lay flat for the procedure and the hospitalist service kindly asked me to reevaluate the patient's respiratory status for any recommendations for optimization. What I spoke with the patient he was lying in bed but able to appropriately ask all my questions he seemed to be concentrating more on resting and sleeping however. He was lying in BiPAP and neck she was lying flat when I spoke with him somewhat turned to his side. He candidly told me that he has not been able a flat for long time in large part because of his anxiety. He says that "it is all in my head and then no matter what they do I will be able lay flat" Objective PUL Vital signs: Last Vital Signs Temp 98.0 F 12/09/18 07:17 Pulse 89 12/09/18 07:17 Resp 16 12/09/18 07:43 BP 121/91 12/09/18 07:43 Pulse Ox 95 12/09/18 07:43 General appearance: other (He is resting comfortably on BiPAP no distress) Eyes: nonicteric Auscultation: left: diminished breath sounds, bilateral: rales Cardiovascular: regular rate and rhythm Gastrointestinal: soft, non-tender, other (Obese habitus) Integumentary: normal Extremities: edema (1+ bilateral pitting edema) Musculoskeletal: no deformities non-focal exam mood appropriate Results - Laboratory Findings CBC and BMP: 12/08/18 04:33 12/08/18 04:33 ABG ABG pH 7.31 pH Units (7.32-7.45) L 11/29/18 05:07 ABG pCO2 43 mmHg (35-45) 11/29/18 05:07 ABG pO2 87 mmHg (85-104) 11/29/18 05:07 ABG O2 Saturation 96 % (95-98) 11/29/18 05:07 PT/INR, D-dimer PT 13.2 Seconds (9.4-12.1) H 11/27/18 15:25 Abnormal lab findings: Abnormal lab results RBC 3.29 M/mcL (4.19-5.50) L 12/08/18 04:33 Hgb 8.4 g/dL (12.9-16.9) L 12/08/18 04:33 Hct 28.8 % (37.5-50.1) L 12/08/18 04:33 MCH 25.5 pg (28.0-33.3) L 12/08/18 04:33 MCHC 29.2 g/dL (31.6-35.5) L 12/08/18 04:33 RDW 18.6 % (11.5-14.5) H 12/08/18 04:33 PT 13.2 Seconds (9.4-12.1) H 11/27/18 15:25 601 mg/dL (169-393) H 11/27/18 22:48 ABG pH 7.31 pH Units (7.32-7.45) L 11/29/18 05:07 ABG pCO2 48 mmHg (35-45) H 11/27/18 23:31 ABG pO2 80 mmHg (85-104) L 11/28/18 05:10 ABG O2 Saturation 90 % (95-98) L 11/28/18 01:04 ABG Base Excess -5 mEq/L (-2 to 3) L 11/29/18 05:07 Sodium 133 mEq/L (136-145) L 11/29/18 03:45 Potassium 3.2 mEq/L (3.5-5.1) L 12/06/18 04:20 Chloride 110 mEq/L (98-107) H 12/06/18 04:20 Carbon Dioxide 30 mEq/L (23-29) H 12/05/18 17:00 BUN 36 mg/dL (8-23) H 12/08/18 04:33 2.29 mg/dL (0.70-1.30) H 12/08/18 04:33 Est GFR ( Amer) 35 (> 60) L 12/08/18 04:33 Est GFR (Non-Af Amer) 29 (> 60) L 12/08/18 04:33 Glucose 117 mg/dL (70-105) H 12/08/18 04:33 POC Glucose 117 mg/dL (70-99) H 12/08/18 23:57 6.6 % (-5.6) H 11/28/18 00:29 302 (280-300) H 12/05/18 17:00 Lactic Acid 0.4 mmol/L (0.5-2.2) L 11/28/18 Unknown Calcium 8.0 mg/dL (8.6-10.3) L 12/07/18 02:04 Phosphorus 5.9 mg/dL (2.7-4.5) H 11/30/18 03:30 Magnesium 2.7 mg/dL (1.6-2.6) H 11/27/18 22:48 0.04 ng/mL (< 0.04) H* 12/07/18 15:34 3.0 g/dL (3.5-5.7) L 11/27/18 22:48 4.5 g/dL (2.4-3.5) H 11/27/18 22:48 0.7 (1.1-2.2) L 11/27/18 22:48 0.35 ng/mL (0.00-0.15) H 11/29/18 03:45 Turbid (Clear) A 11/27/18 18:24 Ur Specific [place] 1.026 (1.010-1.025) H 11/27/18 18:24 >=300 mg/dL (Neg-Trace) H 11/27/18 18:24 100 mg/dL (Normal) H 11/27/18 18:24 Large (Negative) H 11/27/18 18:24 Small (Negative) H 11/27/18 18:24 Ur Leukocyte Esterase Large (Negative) H 11/27/18 18:24 TNTC per hpf (0-3) H 11/27/18 18:24 TNTC per hpf (0-3) H 11/27/18 18:24 Ur Squamous Epith Cells Many per lpf (None-Few) H 11/27/18 18:24 Few per hpf (None Seen) H 11/27/18 18:24 Ur Culture Indicated? YES (NO) A 11/27/18 18:24 Positive (Negative) A 11/28/18 11:55 Vancomycin Trough 22 mcg/mL (5-10) H 11/29/18 19:10 - Diagnostic Findings Chest x-ray: report reviewed, image reviewed - Clinical Findings Intake & Output: Intake & Output 12/08/18 12/09/18 12/09/18 23:59 07:59 15:59 Intake Total 60 / 300 Output Total 750 / 2250 850 / 850 Balance -690 / -1950 -850 / -850 Weight 160.2 kg Consult Discharge Plan - Plan Additional Instructions: Please resume your home medications. Please participate in physical therapy. Please wear BiPAP at night and while sleeping Please return for any worsening symptoms. Referrals: Ander Blankenship MD [Primary Care Provider] - (Patient is from [facility] no PCP appointment needed)
--- NOTE | 2018-12-09 10:37 | Internal Med Progress Note ---
Hospitalist Progress Note - Encounter Date of Encounter: 12/09/18 Time of Encounter: 10:39 - Subjective Interval History: Patient seen and examined at bedside. Patient states that he feels okay today. He feels like his breathing is stable. He has no other complaints. Denies chest pain. - Exam Vitals: Temp Pulse Resp BP Pulse Ox 98.0 F 89 16 121/91 95 12/09/18 07:17 12/09/18 07:17 12/09/18 07:43 12/09/18 07:43 12/09/18 07:43 Exam: Gen.: Alert and oriented 3, no acute distress Heart: Regular rate and rhythm, no murmurs rubs or mental status Lungs: Diminished breath sounds diffusely. No rales, rhonchi, wheezes. - Assessment and Plan (1) Cardiac arrest with successful resuscitation Current Visit: Yes Status: Acute Assessment and Plan: ROSC was achieved after 1 round CPR and 1 dose epinephrine in ED. per cardiology patient will need ICD generator change this hospitalization, was unable to lie flat yesterday, plan for Wednesday now per cardiology.. (2) CHF (congestive heart failure) Current Visit: Yes Status: Chronic Assessment and Plan: Overall patient appears to be improving. Patient currently on Lasix 40 mg IV twice a day per cardiology recommendations. We will continue this for now. She continues to have difficulty lying flat. I have asked pulmonology to reevaluate the patient to give any further recommendations to optimize his respiratory status. (3) Diabetes Current Visit: Yes Status: Chronic Assessment and Plan: Blood sugar under good control this time. Continue sliding scale insulin. (4) Sepsis Current Visit: Yes Status: Resolved Assessment and Plan: Resolved at this time. No leukocytosis or fever. Secondary to suspected pne umonia. Zosyn discontinued yesterday (5) JENN (acute kidney injury) Current Visit: Yes Status: Acute Assessment and Plan: Creatinine is stable yesterday, repeat today pending. (6) Anoxic brain injury Current Visit: Yes Status: Suspected Assessment and Plan: Baseline unclear but patient does appear to have improved mental status. (7) Swallowing difficulty Current Visit: Yes Status: Resolved - Time Spent with Patient Total time spent is greater than 50% in coordination of care (as documented) at patient's floor/unit and/or counseling patient: Internal Medicine: Result - Labs CBC & Chem 7: 12/08/18 04:33 12/08/18 04:33 - ABG Interpretation ABG results: ABG ABG pH 7.31 pH Units (7.32-7.45) L 11/29/18 05:07 ABG pCO2 43 mmHg (35-45) 11/29/18 05:07 ABG pO2 87 mmHg (85-104) 11/29/18 05:07 ABG O2 Saturation 96 % (95-98) 11/29/18 05:07 PT/INR, D-dimer PT 13.2 Seconds (9.4-12.1) H 11/27/18 15:25 - Impressions Impressions Chest X-Ray 12/07/18 08:33 IMPRESSION: Cardiomegaly with vascular congestion and diffuse interstitial as well as alveolar edema, with a moderate left-sided pleural effusion. Non visualization left hemidiaphragm could be related to left basilar consolidation or atelectasis. D/ / Marco Hendricks MD / Marco Hendricks MD Interpreting Provider: Marco Hendricks MD Consult Discharge Plan - Plan Additional Instructions: Please resume your home medications. Please participate in physical therapy. Please wear BiPAP at night and while sleeping Please return for any worsening symptoms. Referrals: Ander Blankenship MD [Primary Care Provider] - (Patient is from [facility] no PCP appointment needed) (2) CHF (congestive heart failure) Qualifiers: Heart failure type: diastolic Heart failure chronicity: acute on chronic Qualified Code(s): I50.33 - Acute on chronic diastolic (congestive) heart failure (3) Diabetes Qualifiers: Diabetes mellitus type: type 2 Diabetes mellitus intermediate insulin use: with intermediate use Diabetes mellitus complication status: with hyperglycemia Qualified Code(s): E11.65 - Type 2 diabetes mellitus with hyperglycemia; Z79.4 - manager long term care (current) use of insulin; Z79.4 - intermediate (current) use of insulin; Z79.4 - intermediate (current) use of insulin; Z79.4 - manager long term care (current) use of insulin (4) Sepsis Qualifiers: Sepsis type: sepsis due to unspecified organism Qualified Code(s): A41.9 - Sepsis, unspecified organism (7) Swallowing difficulty Qualifiers: Dysphagia type: unspecified Qualified Code(s): R13.10 - Dysphagia, unspecified
--- NOTE | 2018-12-09 12:48 | IR Procedure Note ---
Date of procedure: 12/09/18 Consent Obtained: Written consent Timeout: Correct patient and procedure verified, Correct site verified, Time out performed, Skin prep completed Local anesthetic: Lidocaine 1% Indications: Left pleural effusion Procedure Performed: Left thoracentesis Was there an assistant hvac mechanic present: Yes Supervisor Electronics Inspection: Jai Fleming (Initially attempted, I accessed.) Site/Technique: Left chest. Used a 5fr yeuh cath. Results/Findings: Draining. Tolerated well. No immediate complications. Estimated blood loss (cc): 1 Complications: None; Tolerated procedure well Post Procedure Treatment Plan: Monitoring in IR, then pts room Specimen: to lab
[2018-12-09] MEDS: traMADol 50 MG TABLET PO PRN (13:16)
[2018-12-09 14:31] LABS: Calcium 8.4 mg/dL (8.6-10.3); Potassium 4.5 mEq/L (3.5-5.1)
[2018-12-09] MEDS: Acetaminophen 325 MG TABLET PO PRN (18:35)
[2018-12-09] MEDS: Melatonin 3 MG TABLET PO PRN (21:18)
[2018-12-09] MEDS: *HR* OxyCODONE Immed Rel 5 MG TABLET PO PRN (21:18)
[2018-12-09] MEDS: Methyl Salicylate/Menthol 28 GM TUBE TP PRN (21:23)
[2018-12-09] MEDS: Ondansetron ODT 4 MG TAB.RAPDIS SL PRN (22:29)
[2018-12-10] MEDS: Nystatin POWDER 30 GM BOTTLE TP SCH ×3 (04:13→20:25)
[2018-12-10] MEDS: *HR* OxyCODONE Immed Rel 5 MG TABLET PO PRN ×4 (04:23→20:15)
[2018-12-10 04:35] LABS: Basophils % 0.4 %; Eosinophils # 0.3 K/mcL (0.0-0.6); Eosinophils % 4.1 %; Hematocrit 27.8 % (37.5-50.1); Hemoglobin 8.4 g/dL (12.9-16.9); Immature Granulocytes % 1.4 % (0-4); Lymphocytes # 1.6 K/mcL (0.6-4.6); Lymphocytes % 21.7 %; Mean Corpuscular HGB Conc 30.2 g/dL (31.6-35.5); Mean Corpuscular Hemoglobin 26.5 pg (28.0-33.3); Mean Corpuscular Volume 87.7 fL (83.0-100.0); Mean Platelet Volume 11.2 fL (9.4-12.4); Monocytes # 0.6 K/mcL (0.0-1.3); Monocytes % 8.7 %; Neutrophils # 4.7 K/mcL (1.6-8.9); Platelet Count 159 K/mcL (140-400); Red Blood Count 3.17 M/mcL (4.19-5.50); Red Cell Distribution Width 18.6 % (11.5-14.5); Segmented Neutrophils % 63.7 %
[2018-12-10 04:55] LABS: Calcium 8.5 mg/dL (8.6-10.3); Potassium 5.6 mEq/L (3.5-5.1)
[2018-12-10] MEDS: *HR* Heparin 5,000 UNIT/ML VIAL SQ SCH ×3 (05:30→20:59)
--- NOTE | 2018-12-10 07:57 | Internal Med Progress Note ---
Hospitalist Progress Note - Encounter Date of Encounter: 12/10/18 Time of Encounter: 12:18 - Subjective Interval History: sleeping with bipap on, wakes up to voice no chest pain, dyspnea, syncope, nausea, abd pain or other symptoms - Exam Vitals: Temp Pulse Resp BP Pulse Ox 98.8 F 86 32 154/84 98 12/10/18 07:52 12/10/18 07:52 12/10/18 07:52 12/10/18 07:52 12/10/18 07:52 Exam: Gen.: no acute distress no scleral icterus Heart: Regular rate and rhythm, no murmurs rubs or mental status Lungs: Diminished breath sounds diffusely. No rales, rhonchi, wheezes. obese, NT, ND, no guarding or rebound no gross motor deficits, no dysarthria - Assessment and Plan (1) COPD (chronic obstructive pulmonary disease) Current Visit: No Status: Chronic (2) Diabetes Current Visit: Yes Status: Chronic (3) DVT prophylaxis Current Visit: No Status: Acute (4) Hypertension Current Visit: No Status: Chronic (5) Cardiac arrest with successful resuscitation Current Visit: Yes Status: Acute (6) Respiratory arrest before cardiac arrest Current Visit: Yes Status: Acute - Summary of Assessment and Plan Summary of Assessment and Plan: Per my colleague: """Mr. Wright is a 68 year old male with history of congestive heart failure, COPD, diabetes who presented initially in cardiac arrest. He was having respiratory distress at the snf with hypoxia and then went into PEA. Patient underwent hypothermic protocol. He gradually recovered well and eventually was successfully extubated. Patient was evaluated by cardiology who found that his ICD generator was dysfunctional and therefore needed a repl acement. This will be completed on the day of discharge. Patient will be discharged back to [facility] in stable condition.""" (1) Cardiac arrest with successful resuscitation ROSC was achieved after 1 round CPR and 1 dose epinephrine in ED. per cardiology patient will need ICD generator change this hospitalization, was unable to lie flat, plan for Wednesday (2) CHF (congestive heart failure) - Overall patient appears to be improving. - Noted on Lasix 40 mg IV twice a day per cardiology recommendations, considering worsneing creatinine 1.5 --> 2.3, contraction alkalosis (HCO3=30) and leevated BUN, I think he is close to euvolemia, will stop IV Lasix and change to home dose of 40 mg PO BID starting tomorrow morning - Cont carvedilol (3) large left pleural effusion - Pulmonology appreciated: now s/p left thoracentesis by IR on 12/09 - Cytology pending (4) Diabetes Blood sugar under good control this time. Continue sliding scale insulin. (5) Sepsis Resolved at this time. No leukocytosis or fever. Secondary to suspected pneumonia. s/p Zosyn (6) JENN (acute kidney injury) (7) Hyperkalemia Cr 1.2-1.6 at baseline, currently 2.3 - K 5.6, hold KCl supplementation (8) Anoxic brain injury Baseline unclear but patient does appear to have improved mental status. (9) Swallowing difficulty (10) VTE prophylaxis heparin SubQ - Time Spent with Patient Total time spent is greater than 50% in coordination of care (as documented) at patient's floor/unit and/or counseling patient: Internal Medicine: Result - Labs CBC & Chem 7: 12/10/18 04:16 12/10/18 04:16 Labs: Short CBC 12/10/18 Range/Units 04:16 WBC 7.4 (4.3-11.1) K/mcL Hgb 8.4 L (12.9-16.9) g/dL Hct 27.8 L (37.5-50.1) % Plt Count 159 (140-400) K/mcL Neutrophils # 4.7 (1.6-8.9) K/mcL BMP 12/09/18 12/10/18 13:26 04:16 Sodium 138 138 Potassium 4.5 5.6 H Chloride 104 103 Carbon Dioxide 27 30 H BUN 34 H 36 H Creatinine 2.12 H 2.33 H Glucose 117 H 115 H Calcium 8.4 L 8.5 L - ABG Interpretation ABG results: ABG ABG pH 7.31 pH Units (7.32-7.45) L 11/29/18 05:07 ABG pCO2 43 mmHg (35-45) 11/29/18 05:07 ABG pO2 87 mmHg (85-104) 11/29/18 05:07 ABG O2 Saturation 96 % (95-98) 11/29/18 05:07 PT/INR, D-dimer PT 13.2 Seconds (9.4-12.1) H 11/27/18 15:25 - Impressions Impressions Chest X-Ray 12/07/18 08:33 IMPRESSION: Cardiomegaly with vascular congestion and diffuse interstitial as well as alveolar edema, with a moderate left-sided pleural effusion. Non visualization left hemidiaphragm could be related to left basilar consolidation or atelectasis. D/ / Marco Hendricks MD / Marco Hendricks MD Interpreting Provider: Marco Hendricks MD Thoracentesis 12/09/18 09:00 IMPRESSION: Successful ultrasound guided thoracentesis. D/ / Marco Hendricks MD / Marco Hendricks MD Interpreting Provider: Marco Hendricks MD Chest X-Ray 12/09/18 12:44 IMPRESSION: 1. No pneumothorax status post recent left thoracentesis. The left-sided pleural effusion has been successfully aspirated. 2. Increase in size of a small right-sided pleural effusion. 3. Persistent edema. D/ / Agus Crowell MD / Agus Crowell MD Interpreting Provider: Agus Crowell MD Consult Discharge Plan - Plan Additional Instructions: Please resume your home medications. Please participate in physical therapy. Please wear BiPAP at night and while sleeping Please return for any worsening symptoms. 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
[2018-12-10] MEDS: Insulin LISPRO 300 UNITS/3 ML VIAL SQ SCH ×4 (08:30→20:25)
[2018-12-10] MEDS: Furosemide 40 MG/4 ML VIAL IVP SCH (09:04)
[2018-12-10] MEDS: diazePAM 10 MG/2 ML SYRINGE IVP PRN (09:05)
[2018-12-10] MEDS: Ketoconazole 2% CRM 15 GM TUBE TP SCH ×2 (09:13→20:25)
[2018-12-10] MEDS: Methyl Salicylate/Menthol 28 GM TUBE TP PRN (15:20)
[2018-12-10] MEDS: Ipratropium/Albuterol Neb 3 ML IH PRN (16:50)
[2018-12-10] MEDS: traMADol 50 MG TABLET PO PRN (17:27)
[2018-12-10] MEDS: Melatonin 3 MG TABLET PO PRN (20:59)
[2018-12-11 03:34] LABS: Hematocrit 28.2 % (37.5-50.1); Hemoglobin 8.4 g/dL (12.9-16.9); Mean Corpuscular HGB Conc 29.8 g/dL (31.6-35.5); Mean Corpuscular Hemoglobin 26.5 pg (28.0-33.3); Mean Platelet Volume 10.9 fL (9.4-12.4); Platelet Count 189 K/mcL (140-400); Red Blood Count 3.17 M/mcL (4.19-5.50); Red Cell Distribution Width 18.9 % (11.5-14.5)
[2018-12-11] MEDS: traMADol 50 MG TABLET PO PRN (03:51)
[2018-12-11 03:57] LABS: Calcium 8.9 mg/dL (8.6-10.3); Magnesium 2.1 mg/dL (1.6-2.6); Potassium 5.4 mEq/L (3.5-5.1)
[2018-12-11] MEDS: *HR* Heparin 5,000 UNIT/ML VIAL SQ SCH ×3 (06:03→22:29)
[2018-12-11] MEDS: *HR* OxyCODONE Immed Rel 5 MG TABLET PO PRN ×3 (06:03→22:27)
[2018-12-11] MEDS: Insulin LISPRO 300 UNITS/3 ML VIAL SQ SCH ×4 (07:47→22:29)
[2018-12-11] MEDS: Furosemide 40 MG TABLET PO SCH ×2 (08:23→17:11)
[2018-12-11] MEDS: Acetaminophen 325 MG TABLET PO PRN (08:24)
[2018-12-11] MEDS: Ketoconazole 2% CRM 15 GM TUBE TP SCH ×2 (08:30→22:30)
[2018-12-11] MEDS: Nystatin POWDER 30 GM BOTTLE TP SCH ×2 (08:30→22:32)
--- NOTE | 2018-12-11 12:30 | Internal Med Progress Note ---
Hospitalist Progress Note - Encounter Date of Encounter: 12/11/18 Time of Encounter: 12:26 - Subjective Interval History: Feeling better than admission Worried about the device as he feels panic attacks when he lies flat no chest pain, dyspnea, syncope, nausea, abd pain or other symptoms - Exam Vitals: Temp Pulse Resp BP Pulse Ox 97.5 F L 80 16 139/70 97 12/11/18 11:05 12/11/18 11:05 12/11/18 04:25 12/11/18 11:05 12/11/18 11:05 Exam: Gen.: no acute distress, obese no scleral icterus Heart: Regular rate and rhythm, no murmurs rubs or mental status Lungs: Diminished breath sounds diffusely. No rales, rhonchi, wheezes. obese, NT, ND, no guarding or rebound no gross motor deficits, no dysarthria - Assessment and Plan (1) COPD (chronic obstructive pulmonary disease) Current Visit: No Status: Chronic (2) Diabetes Current Visit: Yes Status: Chronic (3) DVT prophylaxis Current Visit: No Status: Acute (4) Hypertension Current Visit: No Status: Chronic (5) Cardiac arrest with successful resuscitation Current Visit: Yes Status: Acute (6) Respiratory arrest before cardiac arrest Current Visit: Yes Status: Acute - Summary of Assessment and Plan Summary of Assessment and Plan: Per my colleague: """Mr. Wright is a 68 year old male with history of congestive heart failure, COPD, diabetes who presented initially in cardiac arrest. He was having respiratory distress at the longterm with hypoxia and then went into PEA. Patient underwent hypothermic protocol. He gradually recovered well and eventually was successfully extubated. Patient was evaluated by cardiology who found that his ICD generator was dysfunctional and therefore needed a replacement. This will be completed on the day of discharge. Patient will be discharged back to [facility] in stable condition.""" (1) Cardiac arrest with successful resuscitation ROSC was achieved after 1 round CPR and 1 dose epinephrine in ED. per cardiology patient will need ICD generator change this hospitalization, was unable to lie flat, plan for Wednesday (2) CHF (congestive heart failure) - Overall patient appears to be improving. - Considering worsneing creatinine 1.5 --> 2.3, contraction alkalosis (HCO3=30) and elevated BUN, IV Lasix was switched to home dose of Lasix 40 mg PO BID on 12/10 - Cont carvedilol (3) large left pleural effusion - Pulmonology appreciated: now s/p left thoracentesis by IR on 12/09 - Cytology pending (4) Diabetes Blood sugar under good control this time. Continue sliding scale insulin. (5) Sepsis Resolved at this time. No leukocytosis or fever. Secondary to suspected pneumonia. s/p Zosyn (6) JENN (acute kidney injury) (7) Hyperkalemia Cr 1.2-1.6 at baseline, currently 2.4 - K 5.4, KCl supplementation discontinued - Monitor (8) Anoxic brain injury Baseline unclear but patient does appear to have improved mental status. (9) Swallowing difficulty (10) VTE prophylaxis heparin SubQ - Time Spent with Patient Total time spent is greater than 50% in coordination of care (as documented) at patient's floor/unit and/or counseling patient: Internal Medicine: Result - Labs CBC & Chem 7: 12/11/18 03:25 12/11/18 03:25 Labs: Short CBC 12/11/18 Range/Units 03:25 WBC 7.6 (4.3-11.1) K/mcL Hgb 8.4 L (12.9-16.9) g/dL Hct 28.2 L (37.5-50.1) % Plt Count 189 (140-400) K/mcL BMP 12/11/18 03:25 Sodium 136 Potassium 5.4 H Chloride 99 Carbon Dioxide 28 BUN 36 H Creatinine 2.40 H Glucose 105 Calcium 8.9 - ABG Interpretation ABG results: ABG ABG pH 7.31 pH Units (7.32-7.45) L 11/29/18 05:07 ABG pCO2 43 mmHg (35-45) 11/29/18 05:07 ABG pO2 87 mmHg (85-104) 11/29/18 05:07 ABG O2 Saturation 96 % (95-98) 11/29/18 05:07 PT/INR, D-dimer PT 13.2 Seconds (9.4-12.1) H 11/27/18 15:25 Consult Discharge Plan - Plan Additional Instructions: Please resume your home medications. Please participate in physical therapy. Please wear BiPAP at night and while sleeping Please return for any worsening symptoms. Referrals: Ander Blankenship MD [Primary Care Provider] - (Patient is from [facility] no PCP appointment needed) (1) COPD (chronic obstructive pulmonary disease) Qualifiers: COPD type: unspecified COPD Qualified Code(s): J44.9 - Chronic obstructive pulmonary disease, unspecified (2) Diabetes Qualifiers: Diabetes mellitus type: type 2 Diabetes mellitus emt intermediate insulin use: with emt intermediate use Diabetes mellitus complication status: with hyperglycemia Qualified Code(s): E11.65 - Type 2 diabetes mellitus with hyperglycemia; Z79.4 - prison (current) use of insulin; Z79.4 - prison (current) use of insulin; Z79.4 - superintendent terminal (current) use of insulin; Z79.4 - superintendent terminal (current) use of insulin (4) Hypertension Qualifiers: Hypertension type: essential hypertension Qualified Code(s): I10 - Essential (primary) hypertension
[2018-12-11] MEDS: diazePAM 10 MG/2 ML SYRINGE IVP PRN (17:18)
[2018-12-11] MEDS: Ipratropium/Albuterol Neb 3 ML IH PRN (20:30)
[2018-12-11 23:12] LABS: Calcium 8.5 mg/dL (8.6-10.3); Potassium 5.4 mEq/L (3.5-5.1)
[2018-12-12] MEDS: *HR* Heparin 5,000 UNIT/ML VIAL SQ SCH ×3 (05:35→21:59)
[2018-12-12] MEDS: *HR* OxyCODONE Immed Rel 5 MG TABLET PO PRN (05:36)
[2018-12-12 06:25] LABS: INR 1.2
[2018-12-12 06:31] LABS: Calcium 8.9 mg/dL (8.6-10.3); Potassium 5.1 mEq/L (3.5-5.1)
[2018-12-12] MEDS: Insulin LISPRO 300 UNITS/3 ML VIAL SQ SCH ×4 (07:46→21:57)
[2018-12-12] MEDS: Furosemide 40 MG TABLET PO SCH (09:45)
[2018-12-12] MEDS: Ketoconazole 2% CRM 15 GM TUBE TP SCH ×2 (10:40→21:57)
[2018-12-12] MEDS: Nystatin POWDER 30 GM BOTTLE TP SCH ×2 (10:40→21:59)
--- NOTE | 2018-12-12 10:43 | Cardiology Progress Note ---
Date of Encounter: 12/12/18 Time of Encounter: 10:40 Assessment and Plan (1) Respiratory arrest before cardiac arrest Current Visit: Yes Status: Acute Per cardiology: Pt presented from ECF unconcious. Documented to have bradycardia and hypoxia. Pt coed in ED. ROSC was achieved after 1 round CPR and 1 dose epinephrine. Found to be hyperkalemic (7, then 7.2). Now resolved. -Troponin 0.04 x 3. TTE completed--LVEF 50%. Mild segmental left ventricular systolic dysfunction. Moderate with mild-moderate AR. -ECG after arrival appears to be accelerated idioventricular, then repeat ECG improved and comparable to prior (inferior infarct). -ICD interrogated (Hx NICMP) --met JJ 02/2018. Last NSVT noted was 11/15, but unclear if device is still sensing or able to deliver therapies. -Recommend ICD generator change prior to discharge once clinically improved. Not urgent but should be done once he is ready for d/c. -Volume status is improved but pt still requiring high amount of oxygen. I will give extra dose lasix today. I discussed with pulmonology and asked for further management today of COPD. We will continue to follow. (2) CHF (congestive heart failure) Current Visit: Yes Status: Chronic Per cardiology: -Known NICM, TTE this admission with LVEF 50%. Mild segmental left ventricular systolic dysfunction. -On BB (coreg). NO celestina/arb due to renal function. -Volume status appeared to be improving. 2+ BLE edema still noted. On bipap on my exam. When bipap removed his SPO2 decreased to 88%. Placed on high flow O2 and pt became dyspneic. Pt request bipap to be placed back on. Discussed with pulmonology . Appreciate recs. Pt received thoracentesis 12/09 with resolution on large left pleural effusion. He is net negative [id number]. I will increase lasix today. Noted previously on 80 mg BID and developed JENN/CKD. Start lasix 40 Mg TID and monitor BMP. -Strict i/os, fluid restriction, daily weights. -Repeat CXR ordered, currently pending. Qualifiers: Heart failure type: diastolic Heart failure chronicity: acute on chronic Qualified Code(s): I50.33 - Acute on chronic diastolic (congestive) heart failure (3) Elevated troponin Current Visit: No Status: Acute Per cardiology: -Troponin 0.04, 0.04, 0.04--borderline in setting of arrest, JENN, hyperkalemia and PNA vs pulmonary edema with Complete opacification of the left hemithorax on CXR. -Demand ischemia, nondiagnostic for ACS. Cardiac rehab not warranted. Discussion w patient/family: The assessment and plan as outlined above was discussed with the patient and/or family members who expressed understanding and agreement. All questions were answered. Thank you for involving us in the care of your patient. Please call with any questions. Subjective Principal diagnosis: Anoxic Brain Injury post cardiopulm arrest Interval history: Mr. Wright is on bipap on my exam. Bipap removed and SPO2 decreased to 88%. O2 per high flow nasal canula applied and SPO2 incresed to 94%. Pt became increasingly SOB. States he is anxious when he does not have his mask on. Patient asked if his ICD procedure could be done under anesthesia. Objective Vital Signs, Last 4 Hours Temp Pulse Resp BP Pulse Ox 12/12/18 07:32 96.9 F L 85 20 143/68 99 General: Conversant, Other (anxious appearing, respirations labored.) HEENT: Atraumatic, Normocephaly, Mucus Membranes Moist Neck: No JVD, Normal carotid pulses Cardiac: Reg Rate and Rhythm, Normal S1 and S2, No Murmur Lungs: Other (respirations labored. Lungs dimnished. ) Neuro: Alert and responsive, No focal deficits noted Abdomen: Soft, Non-Tender Skin: No rashes noted on visualized skin Musculoskeletal: No Chest Wall Tenderness Extremities: No Clubbing, No Cyanosis, Normal Pulses, Other (2+ pitting edema poterior legs and ankles bilaterally. ) Results 12/11/18 03:25 12/12/18 05:50 Lab Results 12/11/18 12/12/18 12/12/18 15:00 05:50 05:50 INR 1.2 Sodium 136 136 Potassium 5.4 H 5.1 Chloride 100 100 Carbon Dioxide 28 27 BUN 37 H 37 H Creatinine 2.45 H 2.46 H Glucose 100 97 Calcium 8.5 L 8.9 - Imaging and Cardiology Echo: report reviewed - EKG Interpretation EKG results cardiology: personally reviewed Consult Discharge Plan - Plan Additional Instructions: Please resume your home medications. Please participate in physical therapy. Please wear BiPAP at night and while sleeping Please return for any worsening symptoms. Referrals: Ander Blankenship MD [Primary Care Provider] - (Patient is from [facility] no PCP appointment needed)
--- NOTE | 2018-12-12 11:06 | Internal Med Progress Note ---
Hospitalist Progress Note - Encounter Date of Encounter: 12/12/18 Time of Encounter: 11:06 - Subjective Interval History: No acute event overnight. Review the lab with stable creatinine level. Reviewed the vitals Denied fever chills nausea vomiting headache dizziness chest pain abdominal pain diarrhea - Exam Vitals: Temp Pulse Resp BP Pulse Ox 96.9 F L 85 20 143/68 99 12/12/18 07:32 12/12/18 07:32 12/12/18 07:32 12/12/18 07:32 12/12/18 07:32 Exam: Gen.: no acute distress, alert awake oriented 3. On high flow oxygen 10 L. Using BiPAP in the night PERRLA EOMI Heart: Regular rate and rhythm, no murmurs rubs or mental status. Trace pedal edema bilaterally Lungs: Diminished breath sounds diffusely. No rales, rhonchi, wheezes. Abdomen -obese, NT, ND, no guarding or rebound neuro -no focal neurological deficit - Assessment and Plan (1) Cardiac arrest with successful resuscitation Current Visit: Yes Status: Acute Assessment and Plan: ROSC was achieved after 1 round CPR and 1 dose epinephrine in ED. per cardiology patient will need ICD generator change this hospitalization. Cardiology on board to decide when appropriate to get ICD generator change. Patient is nothing by mouth and plan to get done today. (2) CHF (congestive heart failure) Current Visit: Yes Status: Chronic Assessment and Plan: Overall patient appears to be improving. Patient currently on Lasix 40 mg IV twice a day per cardiology recommendations. We will continue this for now. Patient continues to have difficulty lying flat and thinks could be due to anxiety. Therefore angiolytic started. Pulmonary on board to optimize his respiratory status. Extra dose of Lasix given today and repeat chest x-ray ordered by cardiology. Plan to discharge patient once cleared by cardiology and pulmonology (3) Diabetes Current Visit: Yes Status: Chronic Assessment and Plan: Blood sugar under good control this time. Continue sliding scale insulin, Accu- Chek. Diabetic diet. (4) Sepsis Current Visit: Yes Status: Resolved Assessment and Plan: Resolved at this time. No leukocytosis or fever. Secondary to suspected pneumonia. Completed the course of Zosyn (5) JENN (acute kidney injury) Current Visit: Yes Status: Acute Assessment and Plan: Creatinine is stable though elevated. Avoid nephrotoxic drug. Will consult nephrology if needed (6) Anoxic brain injury Current Visit: Yes Status: Suspected Assessment and Plan: Baseline unclear but patient does appear to have improved mental status. (7) Swallowing difficulty Current Visit: Yes Status: Resolved Assessment and Plan: Patient evaluated by speech therapy who recommended thin liquids. (8) Pleural effusion Current Visit: Yes Status: Acute Assessment and Plan: Pulmonology on board. s/p left thoracentesis by IR on 12/09 Cytology pending - Time Spent with Patient Total time spent is greater than 50% in coordination of care (as documented) at patient's floor/unit and/or counseling patient: 25 - 35 minutes Plan of Care Discussed with: patient Internal Medicine: Result - Labs CBC & Chem 7: 12/11/18 03:25 12/12/18 05:50 Labs: BMP 12/11/18 12/12/18 15:00 05:50 Sodium 136 136 Potassium 5.4 H 5.1 Chloride 100 100 Carbon Dioxide 28 27 BUN 37 H 37 H Creatinine 2.45 H 2.46 H Glucose 100 97 Calcium 8.5 L 8.9 - ABG Interpretation ABG results: ABG ABG pH 7.31 pH Units (7.32-7.45) L 11/29/18 05:07 ABG pCO2 43 mmHg (35-45) 11/29/18 05:07 ABG pO2 87 mmHg (85-104) 11/29/18 05:07 ABG O2 Saturation 96 % (95-98) 11/29/18 05:07 PT/INR, D-dimer PT 14.0 Seconds (9.4-12.1) H 12/12/18 05:50 Consult Discharge Plan - Plan Additional Instructions: Please resume your home medications. Please participate in physical therapy. Please wear BiPAP at night and while sleeping Please return for any worsening symptoms. Referrals: Ander Blankenship MD [Primary Care Provider] - (Patient is from [facility] no PCP appointment needed) (2) CHF (congestive heart failure) Qualifiers: Heart failure type: diastolic Heart failure chronicity: acute on chronic Qualified Code(s): I50.33 - Acute on chronic diastolic (congestive) heart failure (3) Diabetes Qualifiers: Diabetes mellitus type: type 2 Diabetes mellitus oysterman insulin use: with oysterman use Diabetes mellitus complication status: with hyperglycemia Qu alified Code(s): E11.65 - Type 2 diabetes mellitus with hyperglycemia; Z79.4 - vermin exterminator (current) use of insulin; Z79.4 - vermin exterminator (current) use of insulin; Z79.4 - vermin exterminator (current) use of insulin; Z79.4 - correction (current) use of insulin (4) Sepsis Qualifiers: Sepsis type: sepsis due to unspecified organism Qualified Code(s): A41.9 - Sepsis, unspecified organism (7) Swallowing difficulty Qualifiers: Dysphagia type: unspecified Qualified Code(s): R13.10 - Dysphagia, unspecified
[2018-12-12] MEDS: Ipratropium/Albuterol Neb 3 ML IH PRN (11:28)
--- NOTE | 2018-12-12 11:28 | Pulmonology Progress Note ---
Date of Encounter: 12/12/18 Time of Encounter: 11:00 Assessment and Plan (1) Acute and chronic respiratory failure Current Visit: Yes Status: Acute Patient still has persistent V/Q mismatch the spider dialysis since patient is presenting with wheezes now mild consider as a COPD exacerbation we will start him on steroids. Qualifiers: Respiratory failure complication: hypoxia Qualified Code(s): J96.21 - Acute and chronic respiratory failure with hypoxia (2) COPD (chronic obstructive pulmonary disease) Current Visit: Yes Status: Acute After extensive diuresis patient still BiPAP dependent with the high oxygen requirements. The current exam showing bilateral scattered wheezes will put him on steroids and see how he recovers from the current V/Q mismatch. I agree with continuous diuresis as tolerated Qualifiers: COPD type: COPD with acute exacerbation Qualified Code(s): J44.1 - Chronic obstructive pulmonary disease with (acute) exacerbation (3) CHF (congestive heart failure) Current Visit: Yes Status: Acute Continue with diuresis as per cardiology team if needed nephrology team has to be involved to help in diuresis. Qualifiers: Heart failure type: combined systolic and diastolic Heart failure chronicity: acute on chronic Qualified Code(s): I50.43 - Acute on chronic combined systolic (congestive) and diastolic (congestive) heart failure Subjective Principal diagnosis: Acute and chronic respiratory failure Interval history: Patient with history of congestive heart failure, COPD, [facility] pulmonary was consult and for optimization before his procedure to change his battery for his AICD. Patient says he is feeling a lot better patient does not move much he is lying on the left lateral side has any chest pain chest tightness denies any palpitation or syncope pulmonary here for follow-up. Objective PUL Vital signs: Last Vital Signs Temp 96.9 F L 12/12/18 07:32 Pulse 85 12/12/18 07:32 Resp 20 12/12/18 07:32 BP 143/68 12/12/18 07:32 Pulse Ox 99 12/12/18 07:32 Eyes: nonicteric ENT: oropharynx moist Effort: mildly labored Auscultation: bilateral: diminished breath sounds (Basilar diminished breath sounds), wheezes (Bilateral scattered wheezes) Cardiovascular: regular rate and rhythm Extremities: edema normal mental status, non-focal exam mood appropriate Results - Laboratory Findings CBC and BMP: 12/11/18 03:25 12/12/18 05:50 ABG ABG pH 7.31 pH Units (7.32-7.45) L 11/29/18 05:07 ABG pCO2 43 mmHg (35-45) 11/29/18 05:07 ABG pO2 87 mmHg (85-104) 11/29/18 05:07 ABG O2 Saturation 96 % (95-98) 11/29/18 05:07 PT/INR, D-dimer PT 14.0 Seconds (9.4-12.1) H 12/12/18 05:50 Abnormal lab findings: Abnormal lab results RBC 3.17 M/mcL (4.19-5.50) L 12/11/18 03:25 Hgb 8.4 g/dL (12.9-16.9) L 12/11/18 03:25 Hct 28.2 % (37.5-50.1) L 12/11/18 03:25 MCH 26.5 pg (28.0-33.3) L 12/11/18 03:25 MCHC 29.8 g/dL (31.6-35.5) L 12/11/18 03:25 RDW 18.9 % (11.5-14.5) H 12/11/18 03:25 PT 14.0 Seconds (9.4-12.1) H 12/12/18 05:50 601 mg/dL (169-393) H 11/27/18 22:48 ABG pH 7.31 pH Units (7.32-7.45) L 11/29/18 05:07 ABG pCO2 48 mmHg (35-45) H 11/27/18 23:31 ABG pO2 80 mmHg (85-104) L 11/28/18 05:10 ABG O2 Saturation 90 % (95-98) L 11/28/18 01:04 ABG Base Excess -5 mEq/L (-2 to 3) L 11/29/18 05:07 Sodium 133 mEq/L (136-145) L 11/29/18 03:45 Potassium 5.4 mEq/L (3.5-5.1) H 12/11/18 15:00 Chloride 110 mEq/L (98-107) H 12/06/18 04:20 Carbon Dioxide 30 mEq/L (23-29) H 12/10/18 04:16 BUN 37 mg/dL (8-23) H 12/12/18 05:50 2.46 mg/dL (0.70-1.30) H 12/12/18 05:50 Est GFR ( Amer) 32 (> 60) L 12/12/18 05:50 Est GFR (Non-Af Amer) 26 (> 60) L 12/12/18 05:50 Glucose 115 mg/dL (70-105) H 12/10/18 04:16 POC Glucose 107 mg/dL (70-99) H 12/11/18 19:43 6.6 % (-5.6) H 11/28/18 00:29 302 (280-300) H 12/05/18 17:00 Lactic Acid 0.4 mmol/L (0.5-2.2) L 11/28/18 Unknown Calcium 8.5 mg/dL (8.6-10.3) L 12/11/18 15:00 Phosphorus 5.9 mg/dL (2.7-4.5) H 11/30/18 03:30 Magnesium 2.7 mg/dL (1.6-2.6) H 11/27/18 22:48 0.04 ng/mL (< 0.04) H* 12/07/18 15:34 3.0 g/dL (3.5-5.7) L 11/27/18 22:48 4.5 g/dL (2.4-3.5) H 11/27/18 22:48 0.7 (1.1-2.2) L 11/27/18 22:48 0.35 ng/mL (0.00-0.15) H 11/29/18 03:45 Turbid (Clear) A 11/27/18 18:24 Ur Specific [place] 1.026 (1.010-1.025) H 11/27/18 18:24 >=300 mg/dL (Neg-Trace) H 11/27/18 18:24 100 mg/dL (Normal) H 11/27/18 18:24 Large (Negative) H 11/27/18 18:24 Small (Negative) H 11/27/18 18:24 Ur Leukocyte Esterase Large (Negative) H 11/27/18 18:24 TNTC per hpf (0-3) H 11/27/18 18:24 TNTC per hpf (0-3) H 11/27/18 18:24 Ur Squamous Epith Cells Many per lpf (None-Few) H 11/27/18 18:24 Few per hpf (None Seen) H 11/27/18 18:24 Ur Culture Indicated? YES (NO) A 11/27/18 18:24 Positive (Negative) A 11/28/18 11:55 Vancomycin Trough 22 mcg/mL (5-10) H 11/29/18 19:10 - Clinical Findings Intake & Output: Intake & Output 12/11/18 12/12/18 12/12/18 23:59 07:59 15:59 Intake Total 100 / 400 Output Total 1050 / 1350 350 / 350 Balance -950 / -950 -350 / -350 Weight 159.7 kg Consult Discharge Plan - Plan Additional Instructions: Please resume your home medications. Please participate in physical therapy. Please wear BiPAP at night and while sleeping Please return for any worsening symptoms. Referrals: Ander Blankenship MD [Primary Care Provider] - (Patient is from [facility] no PCP appointment needed)
[2018-12-12] MEDS ORDERED: *HR* LORazepam 1 MG TABLET PO PRN (15:45)
[2018-12-12] MEDS: Furosemide 40 MG/4 ML VIAL IVP SCH (17:14)
[2018-12-13] MEDS: MethylPREDNISolone 40 MG/ML VIAL IVP SCH ×4 (00:22→23:50)
[2018-12-13 04:12] LABS: Basophils % 0.1 %; Eosinophils % 0.5 %; Hematocrit 27.6 % (37.5-50.1); Hemoglobin 8.4 g/dL (12.9-16.9); Immature Granulocytes % 0.8 % (0-4); Lymphocytes # 0.5 K/mcL (0.6-4.6); Lymphocytes % 6.5 %; Mean Corpuscular HGB Conc 30.4 g/dL (31.6-35.5); Mean Corpuscular Hemoglobin 26.7 pg (28.0-33.3); Mean Corpuscular Volume 87.6 fL (83.0-100.0); Mean Platelet Volume 11.2 fL (9.4-12.4); Monocytes # 0.2 K/mcL (0.0-1.3); Monocytes % 2.2 %; Neutrophils # 6.9 K/mcL (1.6-8.9); Platelet Count 182 K/mcL (140-400); Red Blood Count 3.15 M/mcL (4.19-5.50); Segmented Neutrophils % 89.9 %
[2018-12-13 04:32] LABS: Calcium 8.6 mg/dL (8.6-10.3); Potassium 5.3 mEq/L (3.5-5.1)
[2018-12-13] MEDS: *HR* Heparin 5,000 UNIT/ML VIAL SQ SCH ×3 (06:00→21:21)
[2018-12-13] MEDS: Insulin LISPRO 300 UNITS/3 ML VIAL SQ SCH ×4 (08:42→21:16)
[2018-12-13] MEDS: Furosemide 40 MG/4 ML VIAL IVP SCH ×2 (08:42→18:42)
[2018-12-13] MEDS: Ketoconazole 2% CRM 15 GM TUBE TP SCH ×2 (08:43→22:27)
[2018-12-13] MEDS: Nystatin POWDER 30 GM BOTTLE TP SCH ×2 (08:43→22:27)
--- NOTE | 2018-12-13 10:31 | Internal Med Progress Note ---
Hospitalist Progress Note - Encounter Date of Encounter: 12/13/18 Time of Encounter: 10:31 - Subjective Interval History: No acute event overnight. Still requiring BiPAP on high flow oxygen to keep SPO2 over 88%. Review the lab and vitals Denies fever chills nausea vomiting headache dizziness chest pain abdominal pain diarrhea. Harper catheter in place - Exam Vitals: Temp Pulse Resp BP Pulse Ox 98.1 F 93 20 161/89 100 12/13/18 03:46 12/13/18 07:11 12/13/18 07:39 12/13/18 07:11 12/13/18 07:39 Exam: Gen.: no acute distress, alert awake oriented 3. On BiPAP PERRLA EOMI Heart: Regular rate and rhythm, no murmurs rubs or mental status. Trace pedal edema bilaterally Lungs: Diminished breath sounds diffusely. No rales, rhonchi, wheezes. Abdomen -obese, NT, ND, no guarding or rebound neuro -no focal neurological deficit - Assessment and Plan (1) Cardiac arrest with successful resuscitation Current Visit: Yes Status: Acute Assessment and Plan: ROSC was achieved after 1 round CPR and 1 dose epinephrine in ED. per cardiology patient will need ICD generator change this hospitalization. Cardiology on board -plan to get a ICD generator change later afternoon today. Keep patient nothing by mouth Plan to discharge patient once cleared by cardiology. Patient supposed to go to ECF (2) CHF (congestive heart failure) Current Visit: Yes Status: Chronic Assessment and Plan: Overall patient appears to be improving and seems like diuresed well. Patient currently on Lasix 40 mg IV twice a day per cardiology recommendations. We will continue this for now. Patient continues to have difficulty lying flat and thinks could be due to anxiety. Therefore and elevated started. Pulmonary on board to optimize his respiratory status. Slight high potassium-informed cardiology team-rate and watch (3) Diabetes Current Visit: Yes Status: Chronic Assessment and Plan: Blood sugar under good control this time. Continue sliding scale insulin, Accu- Chek. Diabetic diet. (4) Sepsis Current Visit: Yes Status: Resolved Assessment and Plan: Resolved at this time. No leukocytosis or fever. Secondary to suspected pneumonia. Completed the course of Zosyn (5) JENN (acute kidney injury) Current Visit: Yes Status: Acute Assessment and Plan: Creatinine is trending down. Avoid nephrotoxic drug. Will consult nephrology if needed (6) Anoxic brain injury Current Visit: Yes Status: Suspected Assessment and Plan: Baseline unclear but patient does appear to have improved mental status. (7) Swallowing difficulty Current Visit: Yes Status: Resolved Assessment and Plan: Patient evaluated by speech therapy (8) Pleural effusion Current Visit: Yes Status: Acute Assessment and Plan: Pulmonology on board. s/p left thoracentesis by IR on 12/09 Cytology pending - Time Spent with Patient Total time spent is greater than 50% in coordination of care (as documented) at patient's floor/unit and/or counseling patient: 25 - 35 minutes Plan of Care Discussed with: patient Internal Medicine: Result - Labs CBC & Chem 7: 12/13/18 04:00 12/13/18 04:00 Labs: Short CBC 12/13/18 Range/Units 04:00 WBC 7.7 (4.3-11.1) K/mcL Hgb 8.4 L (12.9-16.9) g/dL Hct 27.6 L (37.5-50.1) % Plt Count 182 (140-400) K/mcL Neutrophils # 6.9 (1.6-8.9) K/mcL BMP 12/13/18 04:00 Sodium 137 Potassium 5.3 H Chloride 98 Carbon Dioxide 26 BUN 36 H Creatinine 1.92 H Glucose 133 H Calcium 8.6 - ABG Interpretation ABG results: ABG ABG pH 7.31 pH Units (7.32-7.45) L 11/29/18 05:07 ABG pCO2 43 mmHg (35-45) 11/29/18 05:07 ABG pO2 87 mmHg (85-104) 11/29/18 05:07 ABG O2 Saturation 96 % (95-98) 11/29/18 05:07 PT/INR, D-dimer PT 14.0 Seconds (9.4-12.1) H 12/12/18 05:50 - Impressions Impressions Chest X-Ray 12/09/18 12:44 IMPRESSION: 1. No pneumothorax status post recent left thoracentesis. The left-sided pleural effusion has been successfully aspirated. 2. Increase in size of a small right-sided pleural effusion. 3. Persistent edema. D/ / Agus Crowell MD / Agus Crowell MD Interpreting Provider: Agus Crowell MD Chest X-Ray 12/12/18 11:25 IMPRESSION: Progressing bilateral airspace disease representing edema or ARDS. D/ / 12/12/2018 12:03:35 Jose Francisco Choi MD / earnold Interpreting Provider: Jose Francisco Choi MD Consult Discharge Plan - Plan Additional Instructions: Please resume your home medications. Please participate in physical therapy. Please wear BiPAP at night and while sleeping Please return for any worsening symptoms. 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
--- NOTE | 2018-12-13 10:57 | Event Note ---
Date of Encounter: 12/13/18 Time of Encounter: 10:55 - Cardiology Event Note ICD generator change planned to be done under general anesthesia today at 1500 in the OR. Pt to remain NPO. Pt still requiring bipap or high flow oxygen to keep SPO2 above 88%. Currently 100% on bipap. BLE edema imroved. Continue lasix today.
[2018-12-13] MEDS: *HR* OxyCODONE Immed Rel 5 MG TABLET PO PRN (12:44)
[2018-12-13] MEDS ORDERED: *HR* Propofol 200 MG/20 ML VIAL IVP ONE (14:51)
[2018-12-13] MEDS ORDERED: *HR* FentaNYL (PF) 100 MCG/2 ML VIAL ONE (14:51)
[2018-12-13] MEDS ORDERED: Ondansetron 4 MG/2 ML VIAL ONE (14:51)
[2018-12-13] MEDS ORDERED: *HR* Midazolam HCl 2 MG/2 ML VIAL ONE (14:51)
[2018-12-13] MEDS ORDERED: Lidocaine -MPF 2% 2 ML VIAL ONE ×2 (14:51→15:12)
[2018-12-13] MEDS ORDERED: Dexamethasone 4 MG/ML VIAL ONE (14:51)
[2018-12-13] MEDS ORDERED: ceFAZolin 2,000 MG in Water for inj. (sterile) 20 ML 20 ML IVPB ONE (14:58)
--- NOTE | 2018-12-13 15:04 | Anesthesia Evaluation PreOp ---
Date of Encounter: 12/13/18 Time of Encounter: 15:00 - Past History Planned Operation: Generator Defibrilator Exchange Cardiac History: CHF, HTN, Hyperlipidemia, Pacemaker/ICD, Other (Anemia chronic disease) Pulmonary History: COPD, [place] Dx (BiPap), Other (s/p Pleural Effusion thoracentesis done 900cc aspirated) MANAGER PACKAGING History: Denies Any Significant HX Other Medical History: Renal (CKD), Diabetes Type II, Other (Morbid Obesity) Anesthesia History: No Prior Anesthetic Complications Alcohol Use: none Drug use: none Medications and Allergies Aspirin [Lo-Dose Aspirin EC] 81 mg PO DAILY 12/10/16 [History] Sertraline [Zoloft] 100 mg PO DAILY 12/10/16 [History] Lovastatin 10 mg PO HS 04/07/17 [History] Acetaminophen [Tylenol] 650 mg PO Q4HR PRN 10/04/17 [History] Carvedilol 12.5 mg PO BID 10/04/17 [History] Phenol [Chloraseptic] 1 spr MM Q2H PRN 10/04/17 [History] Fluticasone Propionate Nasal [Flonase] 2 spr NS DAILY 12/12/17 [History] Albuterol Sulfate [Albuterol Inhaler] 2 puff IH [id number] PRN inhaler 01/17/18 [Rx] Tiotropium [Spiriva] 18 mcg IH DAILYR inh 01/17/18 [Rx] Bisacodyl [Gentle Laxative] 10 mg RC DAILY PRN 11/13/18 [History] Diclofenac Sodium [Diclozor] 1 each TP BID PRN 11/13/18 [History] Gabapentin [Neurontin] 300 mg PO TID 11/13/18 [History] Guaifenesin [Diabetic Tussin Ex] 10 ml PO Q4H PRN 11/13/18 [History] Hyoscyamine SL [Levsin Sl] 0.125 mg SL Q2H PRN 11/13/18 [History] Insulin Regular, Human [Novolin R] 0 unit SQ QIDAC 11/13/18 [History] Ipratropium/Albuterol Sulfate [Iprat-Albut 0.5-3(2.5) mg/3 ml] 3 ml IH BID PRN 11/13/18 [History] Loperamide [Imodium] 2 mg PO Q4HR PRN MDD 8mg/24hr 11/13/18 [History] Ondansetron ODT [Zofran ODT] 4 mg SL Q6HR PRN 11/13/18 [History] Promethazine [Phenergan] 25 mg RC Q12H PRN 11/13/18 [History] Saline Nasal [place] [Sigel Nasal [place]] 1 spray NS DAILY PRN 11/13/18 [History] Tamsulosin HCl [Flomax] 0.4 mg PO DAILY 11/13/18 [History] rOPINIRole [Requip] 0.25 mg PO HS 11/13/18 [History] Acetaminophen [Tylenol 650mg SUPP] 650 mg RC Q4H PRN 11/14/18 [History] Insulin NPH Human Isophane [Novolin N] 30 unit SQ HS 11/14/18 [History] Insulin NPH Human Isophane [Novolin N] 50 unit SQ QAM 11/14/18 [History] Fluticasone/Umeclidin/Vilanter [Trelegy Ellipta 100-62.5-25] 1 each IH DAILY 11/27/18 [History] Lidocaine Patch [Lidoderm 5% patch] 1 each TP DAILY PRN 11/27/18 [History] Morphine Sulfate [Morphine Oral Solution] 0.25 ml PO Q4H PRN 11/27/18 [History] Tramadol HCl [Ultram] 50 mg PO Q4H PRN 11/27/18 [History] Trazodone HCl 100 mg PO HS 11/27/18 [History] Furosemide [Lasix] 40 mg PO BID #0 12/08/18 [Rx] Potassium Chloride 40 meq PO BIDWM tab.er.prt 12/08/18 [Rx] Allergy/AdvReac Type Severity Reaction Status Date / Time No Known Drug Allergies Allergy See Verified 08/20/17 15:01 Comments - Meds/Allergy Pre-op Review Medications Reviewed: Yes Allergies Reviewed: Yes Beta Blockers on Current Med List: Yes (on Coreg) Anesthesia Results - Labs 12/13/18 04:00 12/13/18 04:00 - Imaging EKG: report reviewed (SR) Additional studies: ECHO EF 50% Moderate pulm htn, mild diastolic dysfunction Anesthesia Exam O2 Sat Weight 160.2 kg O2 Sat by Pulse Oximetry 100 O2 Sat by Pulse Oximetry 100 O2 Sat by Pulse Oximetry 100 O2 Sat by Pulse Oximetry 98 O2 Sat by Pulse Oximetry 94 O2 Sat by Pulse Oximetry 99 O2 Sat by Pulse Oximetry 98 O2 Sat by Pulse Oximetry 91 O2 Sat by Pulse Oximetry 92 O2 Sat by Pulse Oximetry 96 Vital Signs Temp Pulse Resp BP Pulse Ox 0 F L 0 0 221/143 100 11/27/18 15:20 11/27/18 15:20 11/27/18 15:20 11/27/18 15:20 11/27/18 15:20 Height: 6'3 Weight: 353 lbs NPO (# of Hours): MN Pain Scale: 0 - HEENT Pupil (Motor): Pupils equal, EOMI Mallampati: III Oral Opening: Less than or equal to 3 - MANAGER PACKAGING LOC: Oriented MANAGER PACKAGING Motor: Normal RUE, Normal LUE, Normal RLE, Normal LLE, Normal Face MANAGER PACKAGING Sensory: Normal: RUE, LUE, RLE, LLE, Face - Cardiac Rhythm: Regular Murmur: None JVD: No Carotid Bruit: No - Pulmonary Breath Sounds: bilateral Clear Respiratory Effort: Symmetrical Anesthesia Assess/Plan ASA Score: 4 (HTN [place] CHF) Level of consciousness: Cooperative, Oriented Anesthetic Plan: General Monitoring Plan: Standard Monitors Recovery Plan: PACU (Discussed GA, risks of post op ventilation, agrees to proceed)
[2018-12-13] MEDS ORDERED: Lidocaine -MPF 4% 5 ML AMPUL ONE (15:12)
[2018-12-13] MEDS ORDERED: *HR* Norepinephrine 4 MG/4 ML VIAL IVC ONE (15:21)
[2018-12-13] MEDS ORDERED: 0.9 % Sodium Chloride 500 ML ONE ×2 (15:48→15:49)
[2018-12-13] MEDS ORDERED: Water for inj. (sterile) 10 ML ONE (15:48)
--- NOTE | 2018-12-13 18:33 | Pulmonology Progress Note ---
Date of Encounter: 12/13/18 Time of Encounter: 18:00 Assessment and Plan (1) Acute and chronic respiratory failure Current Visit: Yes Status: Acute Patient still has persistent V/Q mismatch inspite off diuresis since patient is presenting with wheezes now mild consider as a COPD exacerbation we will start him on steroids. 12/13 patient acute on chronic respiratory failure complicated with hypoxia and hypercarbia both CHF/COPD exacerbation patient is slowly getting better with steroids and diuresis. Patient underwent a battery change for his AICD patient was extubated and put on give a break in the evening and give some clear liquid diet if tolerated. Continue diuresis and steroids. Patient with current BiPAP settings getting adequate Minute ventilation patient is conscious oriented following commands and unexpected set her respiratory decl ine but there is high chance of respiratory decline to monitor him over the ICU for the risk of intubation. Qualifiers: Respiratory failure complication: hypoxia Qualified Code(s): J96.21 - Acute and chronic respiratory failure with hypoxia (2) COPD (chronic obstructive pulmonary disease) Current Visit: Yes Status: Acute After extensive diuresis patient still BiPAP dependent with the high oxygen requirements. The current exam showing bilateral scattered wheezes will put him on steroids and see how he recovers from the current V/Q mismatch. I agree with continuous diuresis as tolerated 12/13 to continue with bronchodilators, diuresis and steroids. Qualifiers: COPD type: COPD with acute exacerbation Qualified Code(s): J44.1 - Chronic obstructive pulmonary disease with (acute) exacerbation (3) CHF (congestive heart failure) Current Visit: Yes Status: Acute Continue with diuresis as per cardiology team if needed nephrology team has to be involved to help in diuresis. 12/13 patient is back from OR to continue with diuresis. Qualifiers: Heart failure type: combined systolic and diastolic Heart failure chronicity: acute on chronic Qualified Code(s): I50.43 - Acute on chronic combined systolic (congestive) and diastolic (congestive) heart failure Subjective Principal diagnosis: Acute and chronic respiratory failure Interval history: Patient with history of congestive heart failure, COPD, [facility] pulmonary was consult and for optimization before his procedure to change his battery for his AICD. Patient says he is feeling a lot better patient does not move much he is lying on the left lateral side has any chest pain chest tightness denies any palpitation or syncope pulmonary here for follow-up. Objective PUL Vital signs: Last Vital Signs Temp 98.1 F 12/13/18 03:46 Pulse 93 12/13/18 07:11 Resp 20 12/13/18 11:47 BP 161/89 12/13/18 11:47 Pulse Ox 100 12/13/18 11:47 Results - Laboratory Findings CBC and BMP: 12/13/18 04:00 12/13/18 04:00 ABG ABG pH 7.31 pH Units (7.32-7.45) L 11/29/18 05:07 ABG pCO2 43 mmHg (35-45) 11/29/18 05:07 ABG pO2 87 mmHg (85-104) 11/29/18 05:07 ABG O2 Saturation 96 % (95-98) 11/29/18 05:07 PT/INR, D-dimer PT 14.0 Seconds (9.4-12.1) H 12/12/18 05:50 Abnormal lab findings: Abnormal lab results RBC 3.15 M/mcL (4.19-5.50) L 12/13/18 04:00 Hgb 8.4 g/dL (12.9-16.9) L 12/13/18 04:00 Hct 27.6 % (37.5-50.1) L 12/13/18 04:00 MCH 26.7 pg (28.0-33.3) L 12/13/18 04:00 MCHC 30.4 g/dL (31.6-35.5) L 12/13/18 04:00 RDW 19.0 % (11.5-14.5) H 12/13/18 04:00 0.5 K/mcL (0.6-4.6) L 12/13/18 04:00 PT 14.0 Seconds (9.4-12.1) H 12/12/18 05:50 601 mg/dL (169-393) H 11/27/18 22:48 ABG pH 7.31 pH Units (7.32-7.45) L 11/29/18 05:07 ABG pCO2 48 mmHg (35-45) H 11/27/18 23:31 ABG pO2 80 mmHg (85-104) L 11/28/18 05:10 ABG O2 Saturation 90 % (95-98) L 11/28/18 01:04 ABG Base Excess -5 mEq/L (-2 to 3) L 11/29/18 05:07 Sodium 133 mEq/L (136-145) L 11/29/18 03:45 Potassium 5.3 mEq/L (3.5-5.1) H 12/13/18 04:00 Chloride 110 mEq/L (98-107) H 12/06/18 04:20 Carbon Dioxide 30 mEq/L (23-29) H 12/10/18 04:16 BUN 36 mg/dL (8-23) H 12/13/18 04:00 1.92 mg/dL (0.70-1.30) H 12/13/18 04:00 Est GFR ( Amer) 43 (> 60) L 12/13/18 04:00 Est GFR (Non-Af Amer) 35 (> 60) L 12/13/18 04:00 Glucose 133 mg/dL (70-105) H 12/13/18 04:00 POC Glucose 147 mg/dL (70-99) H 12/13/18 07:16 6.6 % (-5.6) H 11/28/18 00:29 302 (280-300) H 12/05/18 17:00 Lactic Acid 0.4 mmol/L (0.5-2.2) L 11/28/18 Unknown Calcium 8.5 mg/dL (8.6-10.3) L 12/11/18 15:00 Phosphorus 5.9 mg/dL (2.7-4.5) H 11/30/18 03:30 Magnesium 2.7 mg/dL (1.6-2.6) H 11/27/18 22:48 0.04 ng/mL (< 0.04) H* 12/07/18 15:34 3.0 g/dL (3.5-5.7) L 11/27/18 22:48 4.5 g/dL (2.4-3.5) H 11/27/18 22:48 0.7 (1.1-2.2) L 11/27/18 22:48 0.35 ng/mL (0.00-0.15) H 11/29/18 03:45 Turbid (Clear) A 11/27/18 18:24 Ur Specific [place] 1.026 (1.010-1.025) H 11/27/18 18:24 >=300 mg/dL (Neg-Trace) H 11/27/18 18:24 100 mg/dL (Normal) H 11/27/18 18:24 Large (Negative) H 11/27/18 18:24 Small (Negative) H 11/27/18 18:24 Ur Leukocyte Esterase Large (Negative) H 11/27/18 18:24 TNTC per hpf (0-3) H 11/27/18 18:24 TNTC per hpf (0-3) H 11/27/18 18:24 Ur Squamous Epith Cells Many per lpf (None-Few) H 11/27/18 18:24 Few per hpf (None Seen) H 11/27/18 18:24 Ur Culture Indicated? YES (NO) A 11/27/18 18:24 Positive (Negative) A 11/28/18 11:55 Vancomycin Trough 22 mcg/mL (5-10) H 11/29/18 19:10 - Clinical Findings Intake & Output: Intake & Output 12/13/18 12/13/18 12/13/18 07:59 15:59 23:59 Intake Total 0 / 0 Output Total 600 / 2000 1400 / 2000 Balance -600 / -1999 -1400 / -1999 Weight 160.2 kg Consult Discharge Plan - Plan Additional Instructions: Please resume your home medications. Please participate in physical therapy. Please wear BiPAP at night and while sleeping Please return for any worsening symptoms. Referrals: Ander Blankenship MD [Primary Care Provider] - (Patient is from [facility] no PCP appointment needed) Critical Care Time Critical Care Time: Yes Total Critical Care Time: 40 Attestation: I spent 40 minutes of Critical Care time with this patient. It involved decision making of high complexity to assess, manipulate, and support vital organ system failure and/or to prevent further life threatening deterioration of the patient's condition. The time involved in the performance of separately reportable procedures was not counted toward critical care time.
[2018-12-13] MEDS ORDERED: OXYCODONE Oral CONC 10 MG/0.5 ML ORAL.SYG SL PRN (22:34)
[2018-12-14 04:14] LABS: Hematocrit 27.6 % (37.5-50.1); Hemoglobin 8.2 g/dL (12.9-16.9); Lymphocytes # 0.5 K/mcL (0.6-4.6); Lymphocytes % 7.6 %; Mean Corpuscular HGB Conc 29.7 g/dL (31.6-35.5); Mean Corpuscular Volume 87.6 fL (83.0-100.0); Mean Platelet Volume 11.3 fL (9.4-12.4); Monocytes # 0.1 K/mcL (0.0-1.3); Monocytes % 1.5 %; Neutrophils # 5.3 K/mcL (1.6-8.9); Platelet Count 208 K/mcL (140-400); Red Blood Count 3.15 M/mcL (4.19-5.50); Red Cell Distribution Width 18.9 % (11.5-14.5); Segmented Neutrophils % 89.9 %
[2018-12-14 04:32] LABS: Calcium 8.7 mg/dL (8.6-10.3); Potassium 5.2 mEq/L (3.5-5.1)
[2018-12-14] MEDS: *HR* Heparin 5,000 UNIT/ML VIAL SQ SCH ×3 (05:56→22:10)
[2018-12-14] MEDS: Insulin LISPRO 300 UNITS/3 ML VIAL SQ SCH ×4 (08:15→20:09)
--- NOTE | 2018-12-14 08:16 | Event Note ---
Date of Encounter: 12/14/18 Time of Encounter: 08:00 - Cardiology Event Note s/p ICD gen change on 12/13/[address] Nawaf Olsen. CXR yesterday evening s/p procedure demonstrated stable chest. No further recommendations as inpatient from Cardio or EP, will sign-off. Outpatient follow-up coordinated.
[2018-12-14] MEDS: MethylPREDNISolone 40 MG/ML VIAL IVP SCH ×2 (08:26→15:56)
[2018-12-14] MEDS: Furosemide 40 MG/4 ML VIAL IVP SCH (08:26)
[2018-12-14] MEDS: Ketoconazole 2% CRM 15 GM TUBE TP SCH ×2 (08:27→20:09)
[2018-12-14] MEDS: Nystatin POWDER 30 GM BOTTLE TP SCH ×2 (08:27→20:08)
--- NOTE | 2018-12-14 11:34 | Pulmonology Progress Note ---
Date of Encounter: 12/14/18 Time of Encounter: 08:00 Assessment and Plan (1) Acute and chronic respiratory failure Current Visit: Yes Status: Acute Patient still has persistent V/Q mismatch inspite off diuresis since patient is presenting with wheezes now mild consider as a COPD exacerbation we will start him on steroids. 12/13 patient acute on chronic respiratory failure complicated with hypoxia and hypercarbia both CHF/COPD exacerbation patient is slowly getting better with steroids and diuresis. Patient underwent a battery change for his AICD patient was extubated and put on give a break in the evening and give some clear liquid diet if tolerated. Continue diuresis and steroids. Patient with current BiPAP settings getting adequate Minute ventilation patient is conscious oriented following commands and unexpected set her respiratory decl ine but there is high chance of respiratory decline to monitor him over the ICU for the risk of intubation. 12/14 patient did not have any acute events overnight patient tolerated the BiPAP well will try to liberate of high flow nasal cannula patient V/Q mismatch old get better if the patient is not moving sitting up in the chair using incentive spirometry. Meantime will will continue the steroid was sent back for diuresis as well as a kidney function is worsening with patient has both systolic and diastolic dysfunction with the moderate pulmonary hypertension he will be a challenge in diuresing this person if he cannot diuresis some with worsening kidney failure patient might benefit from aquadex which will be peripherally inserted ultrafiltration system which will be done in tertiary heart failure center. Qualifiers: Respiratory failure complication: hypoxia Qualified Code(s): J96.21 - Acute and chronic respiratory failure with hypoxia (2) COPD (chronic obstructive pulmonary disease) Current Visit: Yes Status: Acute After extensive diuresis patient still BiPAP dependent with the high oxygen requirements. The current exam showing bilateral scattered wheezes will put him on steroids and see how he recovers from the current V/Q mismatch. I agree with continuous diuresis as tolerated 12/13 to continue with bronchodilators, diuresis and steroids. 12/14 continue with bronchodilators, steroids will hold off diuresis today and be a challenge will need nephrology help possibly later Qualifiers: COPD type: COPD with acute exacerbation Qualified Code(s): J44.1 - Chronic obstructive pulmonary disease with (acute) exacerbation (3) CHF (congestive heart failure) Current Visit: Yes Status: Acute Continue with diuresis as per cardiology team if needed nephrology team has to be involved to help in diuresis. 12/13 patient is back from OR to continue with diuresis. 12/14 patient's renal functioning is worsening we will hold off diuresis for now we will reassess the renal function counseled about salt and water restriction. She not drink More than 60-70 ounces per day. Qualifiers: Heart failure type: combined systolic and diastolic Heart failure chronicity: acute on chronic Qualified Code(s): I50.43 - Acute on chronic combined systolic (congestive) and diastolic (congestive) heart failure (4) Pulmonary hypertension Current Visit: Yes Status: Acute Patient is class II class III pulmonary hypertension secondary to heart failure and COPD [facility] /[facility] always THIS comorbidities a bad combination will lead to refractive heart failure patient not active morbidly obese patient has guarded prognosis in the next one year. Subjective Principal diagnosis: Acute and chronic respiratory failure Interval history: Patient with history of congestive heart failure, COPD, [facility] pulmonary was consult and for optimization before his procedure to change his battery for his AICD. Patient says he is feeling a lot better patient does not move much he is lying on the left lateral side has any chest pain chest tightness denies any palpitation or syncope pulmonary here for follow-up. patient did not have any acute events overnight patient V/Q mismatch is stable on BiPAP patient says he is feeling a lot better he does not know much in bed is going to be a challenge in recovering him and also getting better his V/Q mismatch. Objective PUL Vital signs: Last Vital Signs Temp 98.0 F 12/14/18 07:20 Pulse 94 12/14/18 10:00 Resp 14 12/14/18 10:00 BP 109/58 12/14/18 10:00 Pulse Ox 90 12/14/18 10:00 General appearance: no acute distress Effort: mildly labored Auscultation: bilateral: diminished breath sounds (Bilateral baseline diminished breadth sounds) Cardiovascular: regular rate and rhythm Extremities: no cyanosis, edema normal mental status, non-focal exam mood appropriate Results - Laboratory Findings CBC and BMP: 12/14/18 03:46 12/14/18 03:46 ABG ABG pH 7.31 pH Units (7.32-7.45) L 11/29/18 05:07 ABG pCO2 43 mmHg (35-45) 11/29/18 05:07 ABG pO2 87 mmHg (85-104) 11/29/18 05:07 ABG O2 Saturation 96 % (95-98) 11/29/18 05:07 PT/INR, D-dimer PT 14.0 Seconds (9.4-12.1) H 12/12/18 05:50 Abnormal lab findings: Abnormal lab results RBC 3.15 M/mcL (4.19-5.50) L 12/14/18 03:46 Hgb 8.2 g/dL (12.9-16.9) L 12/14/18 03:46 Hct 27.6 % (37.5-50.1) L 12/14/18 03:46 MCH 26.0 pg (28.0-33.3) L 12/14/18 03:46 MCHC 29.7 g/dL (31.6-35.5) L 12/14/18 03:46 RDW 18.9 % (11.5-14.5) H 12/14/18 03:46 0.5 K/mcL (0.6-4.6) L 12/14/18 03:46 PT 14.0 Seconds (9.4-12.1) H 12/12/18 05:50 601 mg/dL (169-393) H 11/27/18 22:48 ABG pH 7.31 pH Units (7.32-7.45) L 11/29/18 05:07 ABG pCO2 48 mmHg (35-45) H 11/27/18 23:31 ABG pO2 80 mmHg (85-104) L 11/28/18 05:10 ABG O2 Saturation 90 % (95-98) L 11/28/18 01:04 ABG Base Excess -5 mEq/L (-2 to 3) L 11/29/18 05:07 Sodium 133 mEq/L (136-145) L 11/29/18 03:45 Potassium 5.2 mEq/L (3.5-5.1) H 12/14/18 03:46 Chloride 110 mEq/L (98-107) H 12/06/18 04:20 Carbon Dioxide 30 mEq/L (23-29) H 12/10/18 04:16 BUN 41 mg/dL (8-23) H 12/14/18 03:46 2.15 mg/dL (0.70-1.30) H 12/14/18 03:46 Est GFR ( Amer) 37 (> 60) L 12/14/18 03:46 Est GFR (Non-Af Amer) 31 (> 60) L 12/14/18 03:46 Glucose 155 mg/dL (70-105) H 12/14/18 03:46 POC Glucose 151 mg/dL (70-99) H 12/13/18 21:14 6.6 % (-5.6) H 11/28/18 00:29 302 (280-300) H 12/05/18 17:00 Lactic Acid 0.4 mmol/L (0.5-2.2) L 11/28/18 Unknown Calcium 8.5 mg/dL (8.6-10.3) L 12/11/18 15:00 Phosphorus 5.9 mg/dL (2.7-4.5) H 11/30/18 03:30 Magnesium 2.7 mg/dL (1.6-2.6) H 11/27/18 22:48 0.04 ng/mL (< 0.04) H* 12/07/18 15:34 3.0 g/dL (3.5-5.7) L 11/27/18 22:48 4.5 g/dL (2.4-3.5) H 11/27/18 22:48 0.7 (1.1-2.2) L 11/27/18 22:48 0.35 ng/mL (0.00-0.15) H 11/29/18 03:45 Turbid (Clear) A 11/27/18 18:24 Ur Specific Luther 1.026 (1.010-1.025) H 11/27/18 18:24 >=300 mg/dL (Neg-Trace) H 11/27/18 18:24 100 mg/dL (Normal) H 11/27/18 18:24 Large (Negative) H 11/27/18 18:24 Small (Negative) H 11/27/18 18:24 Ur Leukocyte Esterase Large (Negative) H 11/27/18 18:24 TNTC per hpf (0-3) H 11/27/18 18:24 TNTC per hpf (0-3) H 11/27/18 18:24 Ur Squamous Epith Cells Many per lpf (None-Few) H 11/27/18 18:24 Few per hpf (None Seen) H 11/27/18 18:24 Ur Culture Indicated? YES (NO) A 11/27/18 18:24 Positive (Negative) A 11/28/18 11:55 Vancomycin Trough 22 mcg/mL (5-10) H 11/29/18 19:10 - Clinical Findings Intake & Output: Intake & Output 12/13/18 12/14/18 12/14/18 23:59 07:59 15:59 Output Total 375 / 2375 1000 / 1000 Balance -375 / -2375 -1000 / -1000 Weight 152.8 kg Consult Discharge Plan - Plan Additional Instructions: Please resume your home medications. Please participate in physical therapy. Please wear BiPAP at night and while sleeping Please return for any worsening symptoms. Referrals: Ander Blankenship MD [Primary Care Provider] - (Patient is from [facility] no PCP appo intment needed)
[2018-12-14] MEDS: *HR* OxyCODONE Immed Rel 5 MG TABLET PO PRN ×2 (16:18→19:31)
[2018-12-14] MEDS ORDERED: Melatonin 3 MG TABLET PO PRN (18:05)
[2018-12-14] MEDS ORDERED: Ondansetron ODT 4 MG TAB.RAPDIS SL PRN (18:05)
[2018-12-14] MEDS ORDERED: *HR* Dextrose 50 % in Water (Syg) 50 ML SYRINGE IVP PRN (18:05)
[2018-12-14] MEDS ORDERED: Methyl Salicylate/Menthol 28 GM TUBE TP PRN (18:05)
[2018-12-14] MEDS ORDERED: traMADol 50 MG TABLET PO PRN (18:05)
[2018-12-14] MEDS ORDERED: *HR* LORazepam 1 MG TABLET PO PRN (18:05)
[2018-12-14] MEDS ORDERED: Naloxone 0.4 MG/ML INJ IVP PRN (18:05)
[2018-12-14] MEDS ORDERED: D5% in Water 1,000 ML IVC PRN (18:05)
[2018-12-14] MEDS ORDERED: Dextrose Gel 15 GM/37.5 ML TUBE PO PRN ×2 (18:05)
[2018-12-14] MEDS ORDERED: Acetaminophen 325 MG TABLET PO PRN (18:05)
[2018-12-14] MEDS ORDERED: Artificial Tears SOLN 15 ML BOTTLE BOTH EYES PRN (18:05)
[2018-12-15] MEDS: MethylPREDNISolone 40 MG/ML VIAL IVP SCH ×3 (00:03→20:10)
[2018-12-15] MEDS: *HR* Heparin 5,000 UNIT/ML VIAL SQ SCH ×3 (06:06→20:10)
[2018-12-15 08:11] LABS: Hematocrit 27.3 % (37.5-50.1); Immature Granulocytes % 0.7 % (0-4); Lymphocytes # 0.5 K/mcL (0.6-4.6); Lymphocytes % 11.6 %; Mean Corpuscular HGB Conc 29.3 g/dL (31.6-35.5); Mean Corpuscular Hemoglobin 26.2 pg (28.0-33.3); Mean Corpuscular Volume 89.5 fL (83.0-100.0); Monocytes # 0.2 K/mcL (0.0-1.3); Monocytes % 5.1 %; Neutrophils # 3.4 K/mcL (1.6-8.9); Platelet Count 183 K/mcL (140-400); Red Blood Count 3.05 M/mcL (4.19-5.50); Red Cell Distribution Width 18.9 % (11.5-14.5); Segmented Neutrophils % 82.6 %
[2018-12-15] MEDS: Insulin LISPRO 300 UNITS/3 ML VIAL SQ SCH ×4 (08:24→20:11)
[2018-12-15] MEDS: Ketoconazole 2% CRM 15 GM TUBE TP SCH ×2 (08:25→20:11)
[2018-12-15] MEDS: Nystatin POWDER 30 GM BOTTLE TP SCH ×2 (08:25→20:10)
[2018-12-15 08:41] LABS: Calcium 8.8 mg/dL (8.6-10.3); Potassium 4.5 mEq/L (3.5-5.1)
[2018-12-15] MEDS: *HR* OxyCODONE Immed Rel 5 MG TABLET PO PRN ×2 (14:49→21:11)
--- NOTE | 2018-12-15 17:11 | Internal Med Progress Note ---
Hospitalist Progress Note - Encounter Date of Encounter: 12/15/18 Time of Encounter: 17:00 - Subjective Interval History: pT was admitted for hypoxic respiratory failure and has had a prolonged ICU course. Being transferred to the floor today - Exam Vitals: Temp Pulse Resp BP Pulse Ox 96.6 F L 81 16 123/90 100 12/15/18 16:55 12/15/18 07:58 12/15/18 16:10 12/15/18 07:58 12/15/18 16:10 Exam: Gen.: no acute distress, alert awake oriented 3. On BiPAP PERRLA EOMI Heart: Regular rate and rhythm, no murmurs rubs or mental status. Trace pedal edema bilaterally Lungs: Diminished breath sounds diffusely. No rales, rhonchi, wheezes. Abdomen -obese, NT, ND, no guarding or rebound neuro -no focal neurological deficit - Assessment and Plan (1) Acute and chronic respiratory failure with hypoxia Current Visit: Yes Status: Acute Assessment and Plan: Pt has hypoxic resp failure with V/Q mismatch likely secondary to a combination of COPD exacerbation and CHF exacerbation with pulmonary hypertension Still on high flow nasal cannual at 12L. Plan to wean off as tolerated. Continue BIPAP, nebs and steroids (2) Cardiac arrest with successful resuscitation Current Visit: Yes Status: Acute Assessment and Plan: ROSC was achieved after 1 round CPR and 1 dose epinephrine in ED. Patient is s/p ICD generator change by cardiology (3) CHF (congestive heart failure) Current Visit: Yes Status: Chronic Assessment and Plan: Overall patient appears to be improving and seems like diuresed well. Patient currently on Lasix 40 mg IV twice a day per cardiology recommendations. We will continue this for now. Patient continues to have difficulty lying flat and thinks could be due to anxiety. Therefore and elevated started. Pulmonary on board to optimize his respiratory status. Slight high potassium-informed cardiology team-rate and watch (4) Diabetes Current Visit: Yes Status: Chronic Assessment and Plan: Blood sugar under good control this time. Continue sliding scale insulin, Accu- Chek. Diabetic diet. (5) Sepsis Current Visit: Yes Status: Resolved Assessment and Plan: Resolved at this time. No leukocytosis or fever. Secondary to suspected pneumonia. Completed the course of Zosyn (6) JENN (acute kidney injury) Current Visit: Yes Status: Acute Assessment and Plan: Creatinine is trending down. Avoid nephrotoxic drug. Will consult nephrology if needed (7) Anoxic brain injury Current Visit: Yes Status: Suspected Assessment and Plan: Baseline unclear but patient does appear to have improved mental status. (8) Swallowing difficulty Current Visit: Yes Status: Resolved Assessment and Plan: Patient evaluated by speech therapy (9) Pleural effusion Current Visit: Yes Status: Acute Assessment and Plan: Pulmonology on board. s/p left thoracentesis by IR on 12/09 Cytology pending DVT Prophylaxis: heparin sc - Time Spent with Patient Total time spent is greater than 50% in coordination of care (as documented) at patient's floor/unit and/or counseling patient: Internal Medicine: Result - Labs CBC & Chem 7: 12/15/18 07:52 12/15/18 07:52 Labs: Short CBC 12/15/18 Range/Units 07:52 WBC 4.2 L (4.3-11.1) K/mcL Hgb 8.0 L (12.9-16.9) g/dL Hct 27.3 L (37.5-50.1) % Plt Count 183 (140-400) K/mcL Neutrophils # 3.4 (1.6-8.9) K/mcL BMP 12/15/18 07:52 Sodium 137 Potassium 4.5 Chloride 100 Carbon Dioxide 29 BUN 54 H Creatinine 2.30 H Glucose 219 H Calcium 8.8 - ABG Interpretation ABG results: ABG ABG pH 7.31 pH Units (7.32-7.45) L 11/29/18 05:07 ABG pCO2 43 mmHg (35-45) 11/29/18 05:07 ABG pO2 87 mmHg (85-104) 11/29/18 05:07 ABG O2 Saturation 96 % (95-98) 11/29/18 05:07 PT/INR, D-dimer PT 14.0 Seconds (9.4-12.1) H 12/12/18 05:50 Consult Discharge Plan - Plan Additional Instructions: Please resume your home medications. Please participate in physical therapy. Please wear BiPAP at night and while sleeping Please return for any worsening symptoms. Referrals: Ander Blankenship MD [Primary Care Provider] - ([facility] no PCP appointment needed) (3) CHF (congestive heart failure) Qualifiers: Heart failure type: diastolic Heart failure chronicity: acute on chronic Qualified Code(s): I50.33 - Acute on chronic diastolic (congestive) heart failure (4) Diabetes Qualifiers: Diabetes mellitus type: type 2 Diabetes mellitus intermediate frame tender insulin use: with intermediate frame tender use Diabetes mellitus complication status: with hyperglycemia Qualified Code(s): E11.65 - Type 2 diabetes mellitus with hyperglycemia; Z79.4 - intermediate (current) use of insulin; Z79.4 - intermediate (current) use of insulin; 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
[2018-12-16] MEDS: *HR* Heparin 5,000 UNIT/ML VIAL SQ SCH ×3 (06:29→20:47)
[2018-12-16] MEDS: *HR* OxyCODONE Immed Rel 5 MG TABLET PO PRN ×3 (07:55→22:02)
[2018-12-16] MEDS: Nystatin POWDER 30 GM BOTTLE TP SCH ×2 (07:56→20:54)
[2018-12-16] MEDS: Insulin LISPRO 300 UNITS/3 ML VIAL SQ SCH ×4 (07:56→20:56)
[2018-12-16] MEDS: MethylPREDNISolone 40 MG/ML VIAL IVP SCH ×2 (07:56→20:48)
[2018-12-16] MEDS: Ketoconazole 2% CRM 15 GM TUBE TP SCH ×2 (07:57→20:54)
--- NOTE | 2018-12-16 11:44 | Internal Med Progress Note ---
Hospitalist Progress Note - Encounter Date of Encounter: 12/16/18 Time of Encounter: 11:00 - Subjective Interval History: No acute events overnight - Exam Vitals: Temp Pulse Resp BP Pulse Ox 98.0 F 72 20 136/74 97 12/16/18 10:25 12/16/18 11:19 12/16/18 11:19 12/16/18 11:19 12/16/18 11:19 Exam: Gen.: no acute distress, alert awake oriented 3. On BiPAP PERRLA EOMI Heart: Regular rate and rhythm, no murmurs rubs or mental status. Trace pedal edema bilaterally Lungs: Diminished breath sounds diffusely. No rales, rhonchi, wheezes. Abdomen -obese, NT, ND, no guarding or rebound neuro -no focal neurological deficit - Assessment and Plan (1) Acute and chronic respiratory failure with hypoxia Current Visit: Yes Status: Acute Assessment and Plan: Pt has hypoxic resp failure with V/Q mismatch likely secondary to a combination of COPD exacerbation and CHF exacerbation with pulmonary hypertension Still on high flow nasal cannula at 12L. Plan to wean off as tolerated. Continue BIPAP, nebs and steroids Weaned oxygen down to 7L and improving (2) Cardiac arrest with successful resuscitation Current Visit: Yes Status: Acute Assessment and Plan: ROSC was achieved after 1 round CPR and 1 dose epinephrine in ED. Patient is s/p ICD generator change by cardiology (3) CHF (congestive heart failure) Current Visit: Yes Status: Chronic Assessment and Plan: Combined systolic and diastolic CHF. Improved with diuresis (4) Diabetes Current Visit: Yes Status: Chronic Assessment and Plan: Blood sugar under good control this time. Continue sliding scale insulin, Accu- Chek. Diabetic diet. (5) Sepsis Current Visit: Yes Status: Resolved Assessment and Plan: Resolved at this time. No leukocytosis or fever. Secondary to suspected pneumonia. Completed the course of Zosyn (6) JENN (acute kidney injury) Current Visit: Yes Status: Acute Assessment and Plan: Creatinine is trending down. Avoid nephrotoxic drug. Will consult nephrology if needed (7) Anoxic brain injury Current Visit: Yes Status: Suspected Assessment and Plan: Anoxic brain injury post cardiac arrest. Patient is improved and back to baseline Alert and oriented x 3 (8) Swallowing difficulty Current Visit: Yes Status: Resolved Assessment and Plan: Patient evaluated by speech therapy (9) Pleural effusion Current Visit: Yes Status: Acute Assessment and Plan: Pulmonology on board. s/p left thoracentesis by IR on 12/09 Cytology pending DVT Prophylaxis: heparin sc - Time Spent with Patient Total time spent is greater than 50% in coordination of care (as documented) at patient's floor/unit and/or counseling patient: Internal Medicine: Result - Labs CBC & Chem 7: 12/15/18 07:52 12/15/18 07:52 - ABG Interpretation ABG results: ABG ABG pH 7.31 pH Units (7.32-7.45) L 11/29/18 05:07 ABG pCO2 43 mmHg (35-45) 11/29/18 05:07 ABG pO2 87 mmHg (85-104) 11/29/18 05:07 ABG O2 Saturation 96 % (95-98) 11/29/18 05:07 PT/INR, D-dimer PT 14.0 Seconds (9.4-12.1) H 12/12/18 05:50 Consult Discharge Plan - Plan Additional Instructions: Please resume your home medications. Please participate in physical therapy. Please wear BiPAP at night and while sleeping Please return for any worsening symptoms. Referrals: Ander Blankenship MD [Primary Care Provider] - (Patient is from [facility] no PCP appointment needed) (3) CHF (congestive heart failure) Qualifiers: Heart failure type: diastolic Heart failure chronicity: acute on chronic Qualified Code(s): I50.33 - Acute on chronic diastolic (congestive) heart failure (4) Diabetes Qualifiers: Diabetes mellitus type: type 2 Diabetes mellitus nursing home insulin use: with oil heaterman use Diabetes mellitus complication status: with hyperglycemia Qualified Code(s): E11.65 - Type 2 diabetes mellitus with hyperglycemia; Z79.4 - termite treater (current) use of insulin; Z79.4 - long-term (current) use of insulin; Z79.4 - long-term (current) use of insulin; Z79.4 - termite treater (current) use of insulin (5) Sepsis Qualifiers: Sepsis type: sepsis due to unspecified organism Qualified Code(s): A41.9 - Sepsis, unspecified organism (8) Swallowing difficulty Qualifiers: Dysphagia type: unspecified Qualified Code(s): R13.10 - Dysphagia, unspecified
[2018-12-16] MEDS: Chloraseptic Spray 177 ML BOTTLE MM PRN (14:42)
[2018-12-17] MEDS: Chloraseptic Spray 177 ML BOTTLE MM PRN (00:51)
[2018-12-17] MEDS: Ipratropium/Albuterol Neb 3 ML IH PRN ×3 (01:10→04:39)
[2018-12-17] MEDS: *HR* Heparin 5,000 UNIT/ML VIAL SQ SCH (04:24)
[2018-12-17 04:57] LABS: Hematocrit 27.3 % (37.5-50.1); Hemoglobin 8.3 g/dL (12.9-16.9); Immature Granulocytes % 1.1 % (0-4); Lymphocytes # 0.6 K/mcL (0.6-4.6); Lymphocytes % 12.7 %; Mean Corpuscular HGB Conc 30.4 g/dL (31.6-35.5); Mean Corpuscular Hemoglobin 26.8 pg (28.0-33.3); Mean Corpuscular Volume 88.1 fL (83.0-100.0); Mean Platelet Volume 11.2 fL (9.4-12.4); Monocytes # 0.2 K/mcL (0.0-1.3); Monocytes % 5.3 %; Neutrophils # 3.7 K/mcL (1.6-8.9); Platelet Count 171 K/mcL (140-400); Red Cell Distribution Width 18.4 % (11.5-14.5); Segmented Neutrophils % 80.9 %
[2018-12-17 05:11] LABS: Calcium 8.5 mg/dL (8.6-10.3); Magnesium 2.2 mg/dL (1.6-2.6); Potassium 4.9 mEq/L (3.5-5.1)
[2018-12-17 08:06] VITALS: BP 139/54
[2018-12-17] MEDS: MethylPREDNISolone 40 MG/ML VIAL IVP SCH (09:00)
[2018-12-17] MEDS: Insulin LISPRO 300 UNITS/3 ML VIAL SQ SCH (09:00)
[2018-12-17] MEDS: Nystatin POWDER 30 GM BOTTLE TP SCH (09:05)
[2018-12-17] MEDS: Ketoconazole 2% CRM 15 GM TUBE TP SCH (09:05)
--- NOTE | 2018-12-17 09:09 | Discharge Summary ---
Date of Encounter: 12/17/18 Time of Encounter: 09:00 - Discharge Diagnosis (1) Acute and chronic respiratory failure with hypoxia Priority: Primary Status: Acute Assessment and Plan: 68 year old male who was transferred to the ED by EMS from [place]. EMS had been called to [place] for difficulty breathing. Patient unable to participate in review of systems or provide history. Majority of information comes from chart review and history provided by family.Patient was reportedly unconscious when EMS arrived, reportedly patient was bradycardic (HR 40's) with oxygen saturation in 80's; saturation didn't improve with supplemental O2, so bag valve mask was used. Per ED report, patient had a pulse and detectable rhythm on arrival, but rhythm became disorganized and palpable pulse was lost. He went into cardiac arrest and ROSC was achieved after 1 round CPR and 1 dose epinephrine, he was intubated in the ED. EKG taken immediately after return of circulation was concerning for ischemia. He was intubated for airway protection. He was also noted to be hyperkalemic and received a hyperkalemia cocktail with resolution of hyperkalemia. He was placed on hypothermia protocol post cardiac arrest. Was successfully extubated to BIPAP on 11/28. He was also treated for sepsis likely secondary to pneumonia. He completed a total 10 day course of antibiotics. His ICD was interrogated by cardiology and determined that it needed to be changed. It was successfully changed on 12/13. He had a protracted hospital course complicated by persistent hypoxic resp failure with V/Q mismatch likely secondary to a combination of COPD exacerbation, CHF exacerbation, sleep apnea, obesity hypoventilation syndrome and pulmonary hypertension. He was transferred to the floor on high flow nasal cannula at 12L. With BIPAP, nebs, steroids and diuresis we were able to wean him down to 5L prior to discharge. [facility] had previously expressed a willingness to accept the patient on 7L. He was therefore discharged to [facility]. 35 minutes was spent discharging this patient (2) Cardiac arrest with successful resuscitation Priority: Primary Status: Acute (3) CHF (congestive heart failure) Priority: Primary Status: Chronic Qualifiers: Heart failure type: diastolic Heart failure chronicity: acute on chronic Qualified Code(s): I50.33 - Acute on chronic diastolic (congestive) heart failure (4) Diabetes Priority: Primary Status: Chronic Qualifiers: Diabetes mellitus type: type 2 Diabetes mellitus retirement insulin use: with retirement use Diabetes mellitus complication status: with hyperglycemia Qualified Code(s): E11.65 - Type 2 diabetes mellitus with hyperglycemia; 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; Z79.4 - senior care (current) use of insulin; Z79.4 - senior care (current) use of insulin; 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 Wright is a 68 year old male - Time Spent with Patient Total time spent providing and/or coordinating discharge services: - Discharge Medications Prescriptions: New predniSONE [PredniSONE] 40 mg PO DAILY 7 Days #14 tablet LORazepam [Ativan] 1 mg PO Q8H PRN 28 Days #10 tablet PRN Reason: Anxiety Continued Aspirin [Lo-Dose Aspirin EC] 81 mg PO DAILY Sertraline [Zoloft] 100 mg PO DAILY Lovastatin 10 mg PO HS Carvedilol 12.5 mg PO BID Acetaminophen [Tylenol] 650 mg PO Q4HR PRN PRN Reason: Pain Phenol [Chloraseptic] 1 spr MM Q2H PRN PRN Reason: Sore Throat Fluticasone Propionate Nasal [Flonase] 2 spr NS DAILY Albuterol Sulfate [Albuterol Inhaler] 2 puff IH [id number] PRN inhaler PRN Reason: Shortness Of Breath/Wheezing Tiotropium [Spiriva] 18 mcg IH DAILYR inh Gabapentin [Neurontin] 300 mg PO TID Guaifenesin [Diabetic Tussin Ex] 10 ml PO Q4H PRN PRN Reason: Cough rOPINIRole [Requip] 0.25 mg PO HS Insulin Regular, Human [Novolin R] 0 unit SQ QIDAC Diclofenac Sodium [Diclozor] 1 each TP BID PRN PRN Reason: Pain Ondansetron ODT [Zofran ODT] 4 mg SL Q6HR PRN PRN Reason: Nausea Ipratropium/Albuterol Sulfate [Iprat-Albut 0.5-3(2.5) mg/3 ml] 3 ml IH BID PRN PRN Reason: Shortness Of Breath Tamsulosin HCl [Flomax] 0.4 mg PO DAILY Loperamide [Imodium] 2 mg PO Q4HR PRN MDD 8mg/24hr PRN Reason: Diarrhea Hyoscyamine SL [Levsin Sl] 0.125 mg SL Q2H PRN PRN Reason: Secretions Promethazine [Phenergan] 25 mg RC Q12H PRN PRN Reason: Nausea/Vomiting Saline Nasal [place] [[place] Nasal [place]] 1 spray NS DAILY PRN PRN Reason: nasal dryness Bisacodyl [Gentle Laxative] 10 mg RC DAILY PRN PRN Reason: Constipation Insulin NPH Human Isophane [Novolin N] 30 unit SQ HS Insulin NPH Human Isophane [Novolin N] 50 unit SQ QAM Acetaminophen [Tylenol 650mg SUPP] 650 mg RC Q4H PRN PRN Reason: Fever Fluticasone/Umeclidin/Vilanter [Trelegy Ellipta 100-62.5-25] 1 each IH DAILY Trazodone HCl 100 mg PO HS Tramadol HCl [Ultram] 50 mg PO Q4H PRN PRN Reason: Pain Lidocaine Patch [Lidoderm 5% patch] 1 each TP DAILY PRN PRN Reason: Pain Morphine Sulfate [Morphine Oral Solution] 0.25 ml PO Q4H PRN PRN Reason: Pain/Dyspnea Changed Furosemide [Lasix] 40 mg PO BID #0 Discontinued Potassium Chloride [K-Tab ER] 20 meq PO DAILY Home Medications: Aspirin [Lo-Dose Aspirin EC] 81 mg PO DAILY 12/10/16 [History] Sertraline [Zoloft] 100 mg PO DAILY 12/10/16 [History] Lovastatin 10 mg PO HS 04/07/17 [History] Acetaminophen [Tylenol] 650 mg PO Q4HR PRN 10/04/17 [History] Carvedilol 12.5 mg PO BID 10/04/17 [History] Phenol [Chloraseptic] 1 spr MM Q2H PRN 10/04/17 [History] Fluticasone Propionate Nasal [Flonase] 2 spr NS DAILY 12/12/17 [History] Albuterol Sulfate [Albuterol Inhaler] 2 puff IH [id number] PRN inhaler 01/17/18 [Rx] Tiotropium [Spiriva] 18 mcg IH DAILYR inh 01/17/18 [Rx] Bisacodyl [Gentle Laxative] 10 mg RC DAILY PRN 11/13/18 [History] Diclofenac Sodium [Diclozor] 1 each TP BID PRN 11/13/18 [History] Gabapentin [Neurontin] 300 mg PO TID 11/13/18 [History] Guaifenesin [Diabetic Tussin Ex] 10 ml PO Q4H PRN 11/13/18 [History] Hyoscyamine SL [Levsin Sl] 0.125 mg SL Q2H PRN 11/13/18 [History] Insulin Regular, Human [Novolin R] 0 unit SQ QIDAC 11/13/18 [History] Ipratropium/Albuterol Sulfate [Iprat-Albut 0.5-3(2.5) mg/3 ml] 3 ml IH BID PRN 11/13/18 [History] Loperamide [Imodium] 2 mg PO Q4HR PRN MDD 8mg/24hr 11/13/18 [History] Ondansetron ODT [Zofran ODT] 4 mg SL Q6HR PRN 11/13/18 [History] Promethazine [Phenergan] 25 mg RC Q12H PRN 11/13/18 [History] Saline Nasal [place] [[place] Nasal [place]] 1 spray NS DAILY PRN 11/13/18 [History] Tamsulosin HCl [Flomax] 0.4 mg PO DAILY 11/13/18 [History] rOPINIRole [Requip] 0.25 mg PO HS 11/13/18 [History] Acetaminophen [Tylenol 650mg SUPP] 650 mg RC Q4H PRN 11/14/18 [History] Insulin NPH Human Isophane [Novolin N] 30 unit SQ HS 11/14/18 [History] Insulin NPH Human Isophane [Novolin N] 50 unit SQ QAM 11/14/18 [History] Fluticasone/Umeclidin/Vilanter [Trelegy Ellipta 100-62.5-25] 1 each IH DAILY 11/27/18 [History] Lidocaine Patch [Lidoderm 5% patch] 1 each TP DAILY PRN 11/27/18 [History] Morphine Sulfate [Morphine Oral Solution] 0.25 ml PO Q4H PRN 11/27/18 [History] Tramadol HCl [Ultram] 50 mg PO Q4H PRN 11/27/18 [History] Trazodone HCl 100 mg PO HS 11/27/18 [History] Furosemide [Lasix] 40 mg PO BID #0 12/08/18 [Rx] LORazepam [Ativan] 1 mg PO Q8H PRN 28 Days #10 tablet 12/17/18 [Rx] predniSONE [PredniSONE] 40 mg PO DAILY 7 Days #14 tablet 12/17/18 [Rx] Allergies/Adverse Reactions: Allergy/AdvReac Type Severity Reaction Status Date / Time No Known Drug Allergies Allergy See Verified 08/20/17 15:01 Comments Date of admission: 11/27/18 19:42 Primary care physician: Ander Blankenship MD Consults: 11/27/18 17:42 Consult to Nephrology [CONS] Stat Consulting Provider: Danny Govea Reason for Consult: Hyperkalemia, hyperphosphatemia, hypocalcemia, JENN Time Notified: 17:44 Call Completed: Yes 11/27/18 20:40 Consult to Cardiology [CONS] Routine Comment: Consulting Provider: Cardiology [place] Reason for Consult: s/p arrest Call Completed: Yes Consult to Neurology [CONS] Routine Consulting Provider: Neu[facility] Reason for Consult: s/p arrest; ? anoxic injury Call Completed: No Consult to Pulmonology [CONS] Routine Consulting Provider: [facility] Reason for Consult: ICU management Call Completed: Yes 11/27/18 22:15 Consult to Surgery [CONS] Stat Consulting Provider: Gina Gray Reason for Consult: CVC placement Time Notified: 21:45 Call Completed: Yes 11/28/18 12:14 Consult to Interpret Exam [CONS] Routine Consulting Provider: Polo Pitt Consult to Interpret Exam: Interpret EEG 12/01/18 08:42 Consult to Physical Therapy [CONS] Routine Comment: Evaluate, develop and implement POC Reason for Consult: Admitted with anoxic brain injury. Extubated 11/29/18 Does patient have active BEDREST order?: No Is patient medically & hemodynamically stable?: Yes Patient assessed for mobility or mobilized this visit?: No 12/05/18 08:28 Consult to Invasive Line Access Team [CONS] Routine Reason for Consult: limited vascular access, remove central line Line Type: EPIV 12/05/18 09:04 Consult to Nurse Navigator [CONS] Routine Comment: CHF 12/09/18 10:08 Consult to Pulmonology [CONS] Routine Consulting Provider: [facility] Reason for Consult: Chronic resp failure Call Completed: Yes - Constitutional Vitals: Temp Pulse Resp BP Pulse Ox 97.6 F 83 26 139/54 98 12/17/18 08:04 12/17/18 08:04 12/17/18 08:18 12/17/18 08:04 12/17/18 08:18 General appearance: Present: pleasant, no acute distress Exam: Gen.: no acute distress, alert awake oriented 3. On BiPAP PERRLA EOMI Heart: Regular rate and rhythm, no murmurs rubs or mental status. Trace pedal edema bilaterally Lungs: Diminished breath sounds diffusely. No rales, rhonchi, wheezes. Abdomen -obese, NT, ND, no guarding or rebound neuro -no focal neurological deficit - Head Head exam: Present: atraumatic, normocephalic - Patient Status Disposition: Transfer SNF Condition: Fair - Discharge Instructions Follow Up With: Ander Blankenship MD [Primary Care Provider] - (D/C to [facility] [place] with no f/u appointment needed ) Additional Instructions: Please resume your home medications. Please participate in physical therapy. Please wear BiPAP at night and while sleeping Please return for any worsening symptoms.
--- NOTE | 2018-12-17 09:12 | Physician Discharge Referral ---
- Diagnosis (1) Acute and chronic respiratory failure with hypoxia Priority: Primary Status: Acute (2) Cardiac arrest with successful resuscitation Priority: Primary Status: Acute (3) CHF (congestive heart failure) Priority: Primary Status: Chronic (4) Diabetes Priority: Primary Status: Chronic (5) Sepsis Priority: Primary Status: Resolved (6) JENN (acute kidney injury) Priority: Primary Status: Acute (7) Anoxic brain injury Priority: Primary Status: Suspected (8) Swallowing difficulty Priority: Primary Status: Resolved (9) Pleural effusion Priority: Primary Status: Acute - Transfer Medications Prescriptions: LORazepam [Ativan] 1 mg PO Q8H PRN 28 Days #10 tablet PRN Reason: Anxiety predniSONE [PredniSONE] 40 mg PO DAILY 7 Days #14 tablet Home Medications: Aspirin [Lo-Dose Aspirin EC] 81 mg PO DAILY 12/10/16 [History] Sertraline [Zoloft] 100 mg PO DAILY 12/10/16 [History] Lovastatin 10 mg PO HS 04/07/17 [History] Acetaminophen [Tylenol] 650 mg PO Q4HR PRN 10/04/17 [History] Carvedilol 12.5 mg PO BID 10/04/17 [History] Phenol [Chloraseptic] 1 spr MM Q2H PRN 10/04/17 [History] Fluticasone Propionate Nasal [Flonase] 2 spr NS DAILY 12/12/17 [History] Albuterol Sulfate [Albuterol Inhaler] 2 puff IH [id number] PRN inhaler 01/17/18 [Rx] Tiotropium [Spiriva] 18 mcg IH DAILYR inh 01/17/18 [Rx] Bisacodyl [Gentle Laxative] 10 mg RC DAILY PRN 11/13/18 [History] Diclofenac Sodium [Diclozor] 1 each TP BID PRN 11/13/18 [History] Gabapentin [Neurontin] 300 mg PO TID 11/13/18 [History] Guaifenesin [Diabetic Tussin Ex] 10 ml PO Q4H PRN 11/13/18 [History] Hyoscyamine SL [Levsin Sl] 0.125 mg SL Q2H PRN 11/13/18 [History] Insulin Regular, Human [Novolin R] 0 unit SQ QIDAC 11/13/18 [History] Ipratropium/Albuterol Sulfate [Iprat-Albut 0.5-3(2.5) mg/3 ml] 3 ml IH BID PRN 11/13/18 [History] Loperamide [Imodium] 2 mg PO Q4HR PRN MDD 8mg/24hr 11/13/18 [History] Ondansetron ODT [Zofran ODT] 4 mg SL Q6HR PRN 11/13/18 [History] Promethazine [Phenergan] 25 mg RC Q12H PRN 11/13/18 [History] Saline Nasal [place] [[place] Nasal [place]] 1 spray NS DAILY PRN 11/13/18 [History] Tamsulosin HCl [Flomax] 0.4 mg PO DAILY 11/13/18 [History] rOPINIRole [Requip] 0.25 mg PO HS 11/13/18 [History] Acetaminophen [Tylenol 650mg SUPP] 650 mg RC Q4H PRN 11/14/18 [History] Insulin NPH Human Isophane [Novolin N] 30 unit SQ HS 11/14/18 [History] Insulin NPH Human Isophane [Novolin N] 50 unit SQ QAM 11/14/18 [History] Fluticasone/Umeclidin/Vilanter [Trelegy Ellipta 100-62.5-25] 1 each IH DAILY 11/27/18 [History] Lidocaine Patch [Lidoderm 5% patch] 1 each TP DAILY PRN 11/27/18 [History] Morphine Sulfate [Morphine Oral Solution] 0.25 ml PO Q4H PRN 11/27/18 [History] Tramadol HCl [Ultram] 50 mg PO Q4H PRN 11/27/18 [History] Trazodone HCl 100 mg PO HS 11/27/18 [History] Furosemide [Lasix] 40 mg PO BID #0 12/08/18 [Rx] LORazepam [Ativan] 1 mg PO Q8H PRN 28 Days #10 tablet 12/17/18 [Rx] predniSONE [PredniSONE] 40 mg PO DAILY 7 Days #14 tablet 12/17/18 [Rx] Allergies/Adverse Reactions: Allergy/AdvReac Type Severity Reaction Status Date / Time No Known Drug Allergies Allergy See Verified 08/20/17 15:01 Comments - Respiratory Orders Smoking Cessation: Smoking cessation has been advised. For more information, call the [place] Tobacco Quit Line at 0-891-XTFR-NOW. - Rehabiliation Orders Rehab Potential: Good - Diet Orders Cardiac CERTIFICATION: I certify that the transfer of the above named patient to an Extended Care Facility is necessary for the continuing treatment of the diagnosis listed. The above information is true and accurate reflection of patient's current condition. Confidential - Redisclosure prohibited without a patient's written consent.
[2018-12-18] MEDS ORDERED: predniSONE 20 MG TABLET PO SCH (09:00)
== END 2018-12-17 12:15 | DRG 853 ==
LOC: EMEROOARM 15:19 → ICNU 18:07 → SUATTDRO 19:42 → ICNU 19:42 → 2NNU 12-01 22:40 → 2NENU 12-09 19:47 → ICNU 12-13 18:17 → 2ANU 12-16 15:18
PROVIDERS: ADMIT Family Medicine; ATTEND Internal Medicine

== ENCOUNTER 2019-02-19 14:02 | Inpatient (IN) ==
--- NOTE | 2019-02-19 14:13 | Emergency Department Note ---
Disposition Clinical Impression: Fluid overload Qualifiers: Hypervolemia type: unspecified Qualified Code(s): E87.70 - Fluid overload, unspecified UTI (urinary tract infection) Qualifiers: Urinary tract infection type: acute cystitis Hematuria presence: with hematuria Qualified Code(s): N30.01 - Acute cystitis with hematuria Disposition: Admitted As Inpatient Referrals: NONE,PCP [Primary Care Provider] - Time of Disposition: 16:00 General Adult HPI - General Stated complaint: mental status change Time Seen by Provider: 02/19/19 14:03 Nursing Notes Reviewed: Yes Vital Signs Reviewed: Yes - History of Present Illness HPI Narrative: 68 year old male presents emergency department with concern for having lower O2 sats at the long term. Patient is baseline on nasal cannula at 2.5 L per EMS. They started him on BiPAP therapy and sent to the emergency department. Patient not complaining of any symptoms at this time. Denies any fevers, cough, sputum production, chest pain, pressure, tightness. - Related Data Home Medications Medication Instructions Recorded Confirmed Aspirin [Lo-Dose Aspirin EC] 81 mg PO DAILY 02/19/19 02/19/19 Coreg 15.625 mg PO DAILY 02/19/19 02/19/19 Fexofenadine HCl [Allergy Relief] 180 mg PO DAILY 02/19/19 02/19/19 Fluticasone Propionate [Flovent 50 mcg IH DAILY 02/19/19 02/19/19 Diskus] Furosemide [Lasix] 40 mg PO BID 02/19/19 02/19/19 Gabapentin [Neurontin] 300 mg PO TID 02/19/19 02/19/19 Insulin NPH, HUMAN [HumuLIN N] 30 unit SQ HS 02/19/19 02/19/19 Insulin Regular Human [Humulin R] 0 unit SQ TIDAC 02/19/19 02/19/19 Ipratropium/Albuterol Neb [Duoneb] 3 ml IH BID PRN 02/19/19 02/19/19 Isosorbide DInitrate [Isosorbide 5 mg PO TID 02/19/19 02/19/19 Dinitrate] Lidocaine Patch [Lidoderm 5% patch] 1 each TP DAILY 02/19/19 02/19/19 Lovastatin 10 mg PO DAILY 02/19/19 02/19/19 PredniSONE [Deltasone] 40 mg PO DAILY 02/19/19 02/19/19 Sertraline [Zoloft] 100 mg PO DAILY 02/19/19 02/19/19 Sulfamethoxazole/Trimeth DS 1 each PO BID 02/19/19 02/19/19 [Bactrim DS] Tamsulosin [Flomax] 0.4 mg PO DAILY PRN 02/19/19 02/19/19 Tiotropium [Spiriva] 18 mcg IH DAILY 02/19/19 02/19/19 Tramadol HCl [Ultram] 50 mg PO Q4-6H PRN 02/19/19 02/19/19 Trazodone HCl 100 mg PO HS 02/19/19 02/19/19 Trelegy Ellipta 100-62.5-25 1 puff IH DAILY 02/19/19 02/19/19 Ventolin Hfa 2 puff IH Q4-6H PRN 02/19/19 02/19/19 rOPINIRole [Requip] 0.25 mg PO HS 02/19/19 02/19/19 Allergies Allergy/AdvReac Type Severity Reaction Status Date / Time No Known Drug Allergies Allergy See Verified 08/20/17 15:01 Comments All systems ED: reviewed and negative except as stated. Review of Systems: As Per HPI Constitutional: Denies: fever Cardiovascular: Denies: chest pain Respiratory: Denies: dyspnea Gastrointestinal: Denies: abdominal pain, nausea, vomiting Genitourinary: Denies: dysuria Musculoskeletal: Denies: back pain Past Medical History - Past Medical History Attestation: Yes The following information was validated with the patient. Medical history: Reports: cardiomyopathy, CHF, COPD, diabetes, hyperlipidemia, hypertension Surgical history: Reports: pacemaker/AICD, other Psychiatric history: Reports: depression - Social History Smoking Status: Former smoker Smokeless Tobacco Status: No Alcohol use: Reports: none Drug use: Reports: none Physical Exam - General Limitations: no limitations General appearance: alert, in no apparent distress - Head Head exam: normocephalic - Eye Eye exam: Present: EOMI - ENT ENT exam: mucous membranes moist - Neck Neck exam: Present: trachea midline - Chest Chest inspection: Present: symmetric chest wall rise - Respiratory Respiratory exam: Present: normal lung sounds bilaterally. Absent: respiratory distress, accessory muscle use - Cardiovascular Cardiovascular exam: Present: regular rate, normal rhythm, normal heart sounds - Abdominal Exam Abdominal exam: Present: soft, Non-Tender. Absent: distention, guarding, rebound, rigidity - Extremities Exam Extremities exam: Present: pedal edema (3+ bilaterally), other (Patient has 3+ pitting edema bilaterally.) - Back Exam Back exam: Present: full ROM - Neurological Exam Neurological exam: Present: alert, oriented X3, CN II-XII intact, other (GCS 15, patient easily rousable.) - Psychiatric Psychiatric exam: Present: normal affect, normal mood - Skin Skin exam: Present: warm, dry, intact, normal color. Absent: rash Course Vital Signs Temperature 97.7 F 02/19/19 14:06 Pulse Rate 70 02/19/19 14:06 Respiratory Rate 20 02/19/19 14:06 Blood Pressure 166/99 02/19/19 14:06 O2 Sat by Pulse Oximetry 100 02/19/19 14:06 Temperature 97.7 F 02/19/19 14:06 Pulse Rate 72 02/19/19 16:10 Respiratory Rate 18 02/19/19 16:10 Blood Pressure 154/56 02/19/19 16:10 O2 Sat by Pulse Oximetry 97 02/19/19 16:10 Oxygen Delivery Oxygen Delivery Room Air Medical Decision Making - [facility] Narrative Medical decision making narrative: 68-year-old male presents emergency department with concern for hypoxic respiratory failure. Patient stabilized on BiPAP immediately. He was alert and oriented 3. Protecting his airway appropriately. At this time, patient is not requiring an ablation. Patient not acidotic, and not appearing to be having worsening respiratory failure. Appears have fluid overload on chest x-ray. Creatinine within baseline limits. Patient was given 80 of Lasix here in the emergency department. Admitted to the hospitalist. Patient was also given DuoNeb's as well as steroids. The emergency department for possible COPD exacerbation. We have given Zosyn for urinary tract infection. Chest X-Ray 02/19/19 14:11 IMPRESSION: Congestive heart failure with bibasilar hypoaeration D/ / Polo Johnson MD / Polo Johnson MD Interpreting Provider: Polo Johnson MD - Lab Data Result diagrams: 02/19/19 14:18 02/19/19 14:18 Lab Results 02/19/19 02/19/19 02/19/19 Range/Units 14:13 14:18 14:18 WBC 9.4 (4.3-11.1) K/mcL RBC 3.92 L (4.19-5.50) M/mcL Hgb 10.2 L (12.9-16.9) g/dL Hct 34.8 L (37.5-50.1) % MCV 88.8 (83.0-100.0) fL MCH 26.0 L (28.0-33.3) pg MCHC 29.3 L (31.6-35.5) g/dL RDW 16.1 H (11.5-14.5) % Plt Count 196 (140-400) K/mcL MPV 10.8 (9.4-12.4) fL Immature Gran % 1.8 (0-4) % Seg Neutrophils % 87.6 % Lymphocytes % 7.6 % Monocytes % 2.5 % Eosinophils % 0.3 % Basophils % 0.2 % Neutrophils # 8.3 (1.6-8.9) K/mcL Lymphocytes # 0.7 (0.6-4.6) K/mcL Monocytes # 0.2 (0.0-1.3) K/mcL Eosinophils # 0.0 (0.0-0.6) K/mcL Basophils # 0.0 (0.0-0.2) K/mcL VBG pH (7.32-7.42) pH Units VBG pCO2 (41-51) mmHg VBG pO2 (25-50) mmHg VBG HCO3 (21-27) mEq/L Inspired O2 (1-15=lpm xi35-359=%) Sodium 137 (136-145) mEq/L Potassium 5.0 (3.5-5.1) mEq/L Chloride 103 (98-107) mEq/L Carbon Dioxide 25 (23-29) mEq/L BUN 49 H (8-23) mg/dL Creatinine 1.76 H (0.70-1.30) mg/dL Est GFR ( Amer) 47 L (> 60) Est GFR (Non-Af Amer) 39 L (> 60) BUN/Creatinine Ratio 28 H (6-26) Glucose 155 H (70-105) mg/dL POC Glucose 155 H (70-99) mg/dL Calculated Osmolality 300 (280-300) Lactic Acid (0.5-2.2) mmol/L Calcium 9.1 (8.6-10.3) mg/dL Troponin I 0.04 H* (< 0.04) ng/mL B-Natriuretic Peptide (Less than 100) pg/mL Urine Color (Yellow) Urine Clarity (Clear) Urine pH (5.0-8.0) pH Units Ur Specific [place] (1.010-1.025) Urine Protein (Neg-Trace) mg/dL Urine Glucose (UA) (Normal) mg/dL Urine Ketones (Negative) mg/dL Urine Blood (Negative) Urine Nitrite (Negative) Urine Bilirubin (Negative) Urine Urobilinogen (Normal) mg/dL Ur Leukocyte Esterase (Negative) Urine Microscopic RBC (0-3) per hpf Urine Microscopic WBC (0-3) per hpf Ur Squamous Epith Cells (None-Few) per lpf Urine Bacteria (None-Few) per hpf Hyaline Casts (None-Few) per lpf Ur Culture Indicated? (NO) 02/19/19 02/19/19 02/19/19 Range/Units 14:18 14:18 14:18 WBC (4.3-11.1) K/mcL RBC (4.19-5.50) M/mcL Hgb (12.9-16.9) g/dL Hct (37.5-50.1) % MCV (83.0-100.0) fL MCH (28.0-33.3) pg MCHC (31.6-35.5) g/dL RDW (11.5-14.5) % Plt Count (140-400) K/mcL MPV (9.4-12.4) fL Immature Gran % (0-4) % Seg Neutrophils % % Lymphocytes % % Monocytes % % Eosinophils % % Basophils % % Neutrophils # (1.6-8.9) K/mcL Lymphocytes # (0.6-4.6) K/mcL Monocytes # (0.0-1.3) K/mcL Eosinophils # (0.0-0.6) K/mcL Basophils # (0.0-0.2) K/mcL VBG pH 7.36 (7.32-7.42) pH Units VBG pCO2 45 (41-51) mmHg VBG pO2 37 (25-50) mmHg VBG HCO3 26 (21-27) mEq/L Inspired O2 30.0 (1-15=lpm [id number]=%) Sodium (136-145) mEq/L Potassium (3.5-5.1) mEq/L Chloride (98-107) mEq/L Carbon Dioxide (23-29) mEq/L BUN (8-23) mg/dL Creatinine (0.70-1.30) mg/dL Est GFR ( Amer) (> 60) Est GFR (Non-Af Amer) (> 60) BUN/Creatinine Ratio (6-26) Glucose (70-105) mg/dL POC Glucose (70-99) mg/dL Calculated Osmolality (280-300) Lactic Acid 1.1 (0.5-2.2) mmol/L Calcium (8.6-10.3) mg/dL Troponin I (< 0.04) ng/mL B-Natriuretic Peptide 512 H (Less than 100) pg/mL Urine Color (Yellow) Urine Clarity (Clear) Urine pH (5.0-8.0) pH Units Ur Specific [place] (1.010-1.025) Urine Protein (Neg-Trace) mg/dL Urine Glucose (UA) (Normal) mg/dL Urine Ketones (Negative) mg/dL Urine Blood (Negative) Urine Nitrite (Negative) Urine Bilirubin (Negative) Urine Urobilinogen (Normal) mg/dL Ur Leukocyte Esterase (Negative) Urine Microscopic RBC (0-3) per hpf Urine Microscopic WBC (0-3) per hpf Ur Squamous Epith Cells (None-Few) per lpf Urine Bacteria (None-Few) per hpf Hyaline Casts (None-Few) per lpf Ur Culture Indicated? (NO) 02/19/19 Range/Units 14:43 WBC (4.3-11.1) K/mcL RBC (4.19-5.50) M/mcL Hgb (12.9-16.9) g/dL Hct (37.5-50.1) % MCV (83.0-100.0) fL MCH (28.0-33.3) pg MCHC (31.6-35.5) g/dL RDW (11.5-14.5) % Plt Count (140-400) K/mcL MPV (9.4-12.4) fL Immature Gran % (0-4) % Seg Neutrophils % % Lymphocytes % % Monocytes % % Eosinophils % % Basophils % % Neutrophils # (1.6-8.9) K/mcL Lymphocytes # (0.6-4.6) K/mcL Monocytes # (0.0-1.3) K/mcL Eosinophils # (0.0-0.6) K/mcL Basophils # (0.0-0.2) K/mcL VBG pH (7.32-7.42) pH Units VBG pCO2 (41-51) mmHg VBG pO2 (25-50) mmHg VBG HCO3 (21-27) mEq/L Inspired O2 (1-15=lpm bt61-314=%) Sodium (136-145) mEq/L Potassium (3.5-5.1) mEq/L Chloride (98-107) mEq/L Carbon Dioxide (23-29) mEq/L BUN (8-23) mg/dL Creatinine (0.70-1.30) mg/dL Est GFR ( Amer) (> 60) Est GFR (Non-Af Amer) (> 60) BUN/Creatinine Ratio (6-26) Glucose (70-105) mg/dL POC Glucose (70-99) mg/dL Calculated Osmolality (280-300) Lactic Acid (0.5-2.2) mmol/L Calcium (8.6-10.3) mg/dL Troponin I (< 0.04) ng/mL B-Natriuretic Peptide (Less than 100) pg/mL Urine Color Yellow (Yellow) Urine Clarity Clear (Clear) Urine pH 6.0 (5.0-8.0) pH Units Ur Specific [place] 1.014 (1.010-1.025) Urine Protein 30 H (Neg-Trace) mg/dL Urine Glucose (UA) Normal (Normal) mg/dL Urine Ketones Negative (Negative) mg/dL Urine Blood Moderate H (Negative) Urine Nitrite Positive A (Negative) Urine Bilirubin Negative (Negative) Urine Urobilinogen Normal (Normal) mg/dL Ur Leukocyte Esterase Moderate H (Negative) Urine Microscopic RBC 5-15 H (0-3) per hpf Urine Microscopic WBC 30-50 H (0-3) per hpf Ur Squamous Epith Cells Few (None-Few) per lpf Urine Bacteria Moderate H (None-Few) per hpf Hyaline Casts None Seen (None-Few) per lpf Ur Culture Indicated? YES A (NO) - EKG Data EKG #1 EKG attestation: Yes I reviewed and interpreted this EKG. EKG results narrative: 1415 Heart rate 68 bpm, PA interval 194 ms, QRS duration 90 ms, QTC 430 ms, left axis deviation. Sinus rhythm with no new ischemic ST changes. Q waves in the inferior leads on previous ECG.
[2019-02-19] MEDS ORDERED: Ipratropium/Albuterol Neb 3 ML IH ONE (14:22)
[2019-02-19] MEDS ORDERED: methylPREDNISolone 125 MG/2 ML VIAL IVP ONE (14:23)
[2019-02-19 14:24] LABS: VBG HCO3 26 mEq/L (21-27); VBG PCO2 45 mmHg (41-51); VBG PH 7.36 pH Units (7.32-7.42); VBG PO2 37 mmHg (25-50)
[2019-02-19 14:31] LABS: Basophils % 0.2 %; Eosinophils % 0.3 %; Hematocrit 34.8 % (37.5-50.1); Hemoglobin 10.2 g/dL (12.9-16.9); Immature Granulocytes % 1.8 % (0-4); Lymphocytes # 0.7 K/mcL (0.6-4.6); Lymphocytes % 7.6 %; Mean Corpuscular HGB Conc 29.3 g/dL (31.6-35.5); Mean Corpuscular Volume 88.8 fL (83.0-100.0); Mean Platelet Volume 10.8 fL (9.4-12.4); Monocytes # 0.2 K/mcL (0.0-1.3); Monocytes % 2.5 %; Neutrophils # 8.3 K/mcL (1.6-8.9); Platelet Count 196 K/mcL (140-400); Red Blood Count 3.92 M/mcL (4.19-5.50); Red Cell Distribution Width 16.1 % (11.5-14.5); Segmented Neutrophils % 87.6 %; White Blood Count 9.4 K/mcL (4.3-11.1)
[2019-02-19] MEDS ORDERED: methylPREDNISolone 125 MG/2 ML VIAL ONE (14:35)
[2019-02-19 14:52] LABS: Calcium 9.1 mg/dL (8.6-10.3)
[2019-02-19 14:53] LABS: Bilirubin,Urine Negative (Negative); Blood,Urine Moderate (Negative); Clarity,Urine Clear (Clear); Color,Urine Yellow (Yellow); Glucose,Urine (UA) Normal (Normal); Ketones,Urine Negative (Negative); Leukocyte Esterase,Urine Moderate (Negative); Nitrite,Urine Positive (Negative); Protein,Urine 30 mg/dL (Neg-Trace); Specific Gravity,Urine 1.014 (1.010-1.025); Urobilinogen,Urine Normal (Normal)
[2019-02-19 14:55] LABS: Bacteria,Urine Moderate per hpf (None-Few); Hyaline Casts,Urine None Seen per lpf (None-Few); Squamous Epithelial Cell,Urine Few per lpf (None-Few); WBC,Urine 30-50 per hpf (0-3)
[2019-02-19 15:02] LABS: Troponin I 0.04 ng/mL (< 0.04)
[2019-02-19] MEDS ORDERED: Furosemide 40 MG/4 ML VIAL IVP ONE ×2 (15:03→15:49)
[2019-02-19] MEDS ORDERED: Piperacillin/Tazobactam 3.375 GM in Water for inj. (sterile) 20 ML IVP ONE (15:25)
--- NOTE | 2019-02-19 15:28 | Emergency Department Note ---
Disposition Clinical Impression: Fluid overload Qualifiers: Hypervolemia type: unspecified Qualified Code(s): E87.70 - Fluid overload, unspecified UTI (urinary tract infection) Qualifiers: Urinary tract infection type: site unspecified Hematuria presence: without hematuria Qualified Code(s): N39.0 - Urinary tract infection, site not specified Disposition: Admitted As Inpatient Time of Disposition: 19:47 General Adult HPI - General Chief complaint: ED Altered Mental Status Stated complaint: mental status change Time Seen by Provider: 02/19/19 14:03 Source: patient, EMS Limitations: no limitations - History of Present Illness Pain Scale: 0 - Related Data Home Medications Medication Instructions Recorded Confirmed Aspirin [Lo-Dose Aspirin EC] 81 mg PO DAILY 02/19/19 02/19/19 Coreg 15.625 mg PO DAILY 02/19/19 02/19/19 Fexofenadine HCl [Allergy Relief] 180 mg PO DAILY 02/19/19 02/19/19 Fluticasone Propionate [Flovent 50 mcg IH DAILY 02/19/19 02/19/19 Diskus] Furosemide [Lasix] 40 mg PO BID 02/19/19 02/19/19 Gabapentin [Neurontin] 300 mg PO TID 02/19/19 02/19/19 Insulin NPH, HUMAN [HumuLIN N] 30 unit SQ HS 02/19/19 02/19/19 Insulin Regular Human [Humulin R] 0 unit SQ TIDAC 02/19/19 02/19/19 Ipratropium/Albuterol Neb [Duoneb] 3 ml IH BID PRN 02/19/19 02/19/19 Isosorbide DInitrate [Isosorbide 5 mg PO TID 02/19/19 02/19/19 Dinitrate] Lidocaine Patch [Lidoderm 5% patch] 1 each TP DAILY 02/19/19 02/19/19 Lovastatin 10 mg PO DAILY 02/19/19 02/19/19 PredniSONE [Deltasone] 40 mg PO DAILY 02/19/19 02/19/19 Sertraline [Zoloft] 100 mg PO DAILY 02/19/19 02/19/19 Sulfamethoxazole/Trimeth DS 1 each PO BID 02/19/19 02/19/19 [Bactrim DS] Tamsulosin [Flomax] 0.4 mg PO DAILY PRN 02/19/19 02/19/19 Tiotropium [Spiriva] 18 mcg IH DAILY 02/19/19 02/19/19 Tramadol HCl [Ultram] 50 mg PO Q4-6H PRN 02/19/19 02/19/19 Trazodone HCl 100 mg PO 02/19/19 02/19/19 [place] Ellipta 100-62.5-25 1 puff IH DAILY 02/19/19 02/19/19 Ventolin Hfa 2 puff IH Q4-6H PRN 02/19/19 02/19/19 rOPINIRole [Requip] 0.25 mg PO 02/19/19 02/19/19 Allergies Allergy/AdvReac Type Severity Reaction Status Date / Time No Known Drug Allergies Allergy See Verified 08/20/17 15:01 Comments Constitutional: Denies: fever Cardiovascular: Denies: chest pain Respiratory: Denies: dyspnea Gastrointestinal: Denies: abdominal pain, nausea, vomiting Genitourinary: Denies: dysuria Musculoskeletal: Denies: back pain Past Medical History - Past Medical History Medical history: Reports: cardiomyopathy, CHF, COPD, diabetes, hyperlipidemia, hypertension Surgical history: Reports: pacemaker/AICD, other Psychiatric history: Reports: depression - Social History Smoking Status: Former smoker Smokeless Tobacco Status: No Alcohol use: Reports: none Drug use: Reports: none Physical Exam - General Limitations: no limitations General appearance: alert, in no apparent distress Course Vital Signs Temperature 97.7 F 02/19/19 14:06 Pulse Rate 70 02/19/19 14:06 Respiratory Rate 20 02/19/19 14:06 Blood Pressure 166/99 02/19/19 14:06 O2 Sat by Pulse Oximetry 100 02/19/19 14:06 Temperature 97.6 F 02/19/19 19:12 Pulse Rate 79 02/19/19 19:12 Respiratory Rate 12 02/19/19 19:12 Blood Pressure 163/92 02/19/19 19:12 O2 Sat by Pulse Oximetry 96 02/19/19 19:12 Oxygen Delivery Oxygen Delivery Bipap Medical Decision Making - Lab Data Result diagrams: 02/19/19 14:18 02/19/19 14:18 Lab Results 02/19/19 02/19/19 02/19/19 Range/Units 14:13 14:18 14:18 WBC 9.4 (4.3-11.1) K/mcL RBC 3.92 L (4.19-5.50) M/mcL Hgb 10.2 L (12.9-16.9) g/dL Hct 34.8 L (37.5-50.1) % MCV 88.8 (83.0-100.0) fL MCH 26.0 L (28.0-33.3) pg MCHC 29.3 L (31.6-35.5) g/dL RDW 16.1 H (11.5-14.5) % Plt Count 196 (140-400) K/mcL MPV 10.8 (9.4-12.4) fL Immature Gran % 1.8 (0-4) % Seg Neutrophils % 87.6 % Lymphocytes % 7.6 % Monocytes % 2.5 % Eosinophils % 0.3 % Basophils % 0.2 % Neutrophils # 8.3 (1.6-8.9) K/mcL Lymphocytes # 0.7 (0.6-4.6) K/mcL Monocytes # 0.2 (0.0-1.3) K/mcL Eosinophils # 0.0 (0.0-0.6) K/mcL Basophils # 0.0 (0.0-0.2) K/mcL PT (9.4-12.1) Seconds INR APTT (26.0-36.0) Seconds Sample Site ABG pH (7.32-7.45) pH Units ABG pCO2 (35-45) mmHg ABG pO2 (85-104) mmHg ABG HCO3 (21-27) mEq/L ABG Total CO2 (20-26) mEq/L ABG O2 Saturation (95-98) % ABG Base Excess (-2 to 3) mEq/L Pablo Test VBG pH (7.32-7.42) pH Units VBG pCO2 (41-51) mmHg VBG pO2 (25-50) mmHg VBG HCO3 (21-27) mEq/L Respiration Rate O2 Delivery Device Inspired O2 (1-15=lpm [id number]=%) PEEP cm H2O Pressure Support cm H2O Sodium 137 (136-145) mEq/L Potassium 5.0 (3.5-5.1) mEq/L Chloride 103 (98-107) mEq/L Carbon Dioxide 25 (23-29) mEq/L BUN 49 H (8-23) mg/dL Creatinine 1.76 H (0.70-1.30) mg/dL Est GFR ( Amer) 47 L (> 60) Est GFR (Non-Af Amer) 39 L (> 60) BUN/Creatinine Ratio 28 H (6-26) Glucose 155 H (70-105) mg/dL POC Glucose 155 H (70-99) mg/dL Calculated Osmolality 300 (280-300) Lactic Acid (0.5-2.2) mmol/L Calcium 9.1 (8.6-10.3) mg/dL Troponin I 0.04 H* (< 0.04) ng/mL B-Natriuretic Peptide (Less than 100) pg/mL Urine Color (Yellow) Urine Clarity (Clear) Urine pH (5.0-8.0) pH Units Ur Specific [place] (1.010-1.025) Urine Protein (Neg-Trace) mg/dL Urine Glucose (UA) (Normal) mg/dL Urine Ketones (Negative) mg/dL Urine Blood (Negative) Urine Nitrite (Negative) Urine Bilirubin (Negative) Urine Urobilinogen (Normal) mg/dL Ur Leukocyte Esterase (Negative) Urine Microscopic RBC (0-3) per hpf Urine Microscopic WBC (0-3) per hpf Ur Squamous Epith Cells (None-Few) per lpf Urine Bacteria (None-Few) per hpf Hyaline Casts (None-Few) per lpf Ur Culture Indicated? (NO) Person Notif of Crit 02/19/19 02/19/19 02/19/19 Range/Units 14:18 14:18 14:18 WBC (4.3-11.1) K/mcL RBC (4.19-5.50) M/mcL Hgb (12.9-16.9) g/dL Hct (37.5-50.1) % MCV (83.0-100.0) fL MCH (28.0-33.3) pg MCHC (31.6-35.5) g/dL RDW (11.5-14.5) % Plt Count (140-400) K/mcL MPV (9.4-12.4) fL Immature Gran % (0-4) % Seg Neutrophils % % Lymphocytes % % Monocytes % % Eosinophils % % Basophils % % Neutrophils # (1.6-8.9) K/mcL Lymphocytes # (0.6-4.6) K/mcL Monocytes # (0.0-1.3) K/mcL Eosinophils # (0.0-0.6) K/mcL Basophils # (0.0-0.2) K/mcL PT (9.4-12.1) Seconds INR APTT (26.0-36.0) Seconds Sample Site ABG pH (7.32-7.45) pH Units ABG pCO2 (35-45) mmHg ABG pO2 (85-104) mmHg ABG HCO3 (21-27) mEq/L ABG Total CO2 (20-26) mEq/L ABG O2 Saturation (95-98) % ABG Base Excess (-2 to 3) mEq/L Pablo Test VBG pH 7.36 (7.32-7.42) pH Units VBG pCO2 45 (41-51) mmHg VBG pO2 37 (25-50) mmHg VBG HCO3 26 (21-27) mEq/L Respiration Rate O2 Delivery Device Inspired O2 30.0 (1-15=lpm bx10-307=%) PEEP cm H2O Pressure Support cm H2O Sodium (136-145) mEq/L Potassium (3.5-5.1) mEq/L Chloride (98-107) mEq/L Carbon Dioxide (23-29) mEq/L BUN (8-23) mg/dL Creatinine (0.70-1.30) mg/dL Est GFR ( Amer) (> 60) Est GFR (Non-Af Amer) (> 60) BUN/Creatinine Ratio (6-26) Glucose (70-105) mg/dL POC Glucose (70-99) mg/dL Calculated Osmolality (280-300) Lactic Acid 1.1 (0.5-2.2) mmol/L Calcium (8.6-10.3) mg/dL Troponin I (< 0.04) ng/mL B-Natriuretic Peptide 512 H (Less than 100) pg/mL Urine Color (Yellow) Urine Clarity (Clear) Urine pH (5.0-8.0) pH Units Ur Specific [place] (1.010-1.025) Urine Protein (Neg-Trace) mg/dL Urine Glucose (UA) (Normal) mg/dL Urine Ketones (Negative) mg/dL Urine Blood (Negative) Urine Nitrite (Negative) Urine Bilirubin (Negative) Urine Urobilinogen (Normal) mg/dL Ur Leukocyte Esterase (Negative) Urine Microscopic RBC (0-3) per hpf Urine Microscopic WBC (0-3) per hpf Ur Squamous Epith Cells (None-Few) per lpf Urine Bacteria (None-Few) per hpf Hyaline Casts (None-Few) per lpf Ur Culture Indicated? (NO) Person Notif of Crit 02/19/19 02/19/19 02/19/19 Range/Units 14:18 14:43 16:23 WBC (4.3-11.1) K/mcL RBC (4.19-5.50) M/mcL Hgb (12.9-16.9) g/dL Hct (37.5-50.1) % MCV (83.0-100.0) fL MCH (28.0-33.3) pg MCHC (31.6-35.5) g/dL RDW (11.5-14.5) % Plt Count (140-400) K/mcL MPV (9.4-12.4) fL Immature Gran % (0-4) % Seg Neutrophils % % Lymphocytes % % Monocytes % % Eosinophils % % Basophils % % Neutrophils # (1.6-8.9) K/mcL Lymphocytes # (0.6-4.6) K/mcL Monocytes # (0.0-1.3) K/mcL Eosinophils # (0.0-0.6) K/mcL Basophils # (0.0-0.2) K/mcL PT 11.3 (9.4-12.1) Seconds INR 1.0 APTT 30.8 (26.0-36.0) Seconds Sample Site L Radial ABG pH 7.33 (7.32-7.45) pH Units ABG pCO2 50 H (35-45) mmHg ABG pO2 32 L* (85-104) mmHg ABG HCO3 27 (21-27) mEq/L ABG Total CO2 28 H (20-26) mEq/L ABG O2 Saturation 57 L (95-98) % ABG Base Excess 0 (-2 to 3) mEq/L Pablo Test Negative VBG pH (7.32-7.42) pH Units VBG pCO2 (41-51) mmHg VBG pO2 (25-50) mmHg VBG HCO3 (21-27) mEq/L Respiration Rate 12 O2 Delivery Device BiPAP Inspired O2 30.0 (1-15=lpm mt94-493=%) PEEP 6 cm H2O Pressure Support 6 cm H2O Sodium (136-145) mEq/L Potassium (3.5-5.1) mEq/L Chloride (98-107) mEq/L Carbon Dioxide (23-29) mEq/L BUN (8-23) mg/dL Creatinine (0.70-1.30) mg/dL Est GFR ( Amer) (> 60) Est GFR (Non-Af Amer) (> 60) BUN/Creatinine Ratio (6-26) Glucose (70-105) mg/dL POC Glucose (70-99) mg/dL Calculated Osmolality (280-300) Lactic Acid (0.5-2.2) mmol/L Calcium (8.6-10.3) mg/dL Troponin I (< 0.04) ng/mL B-Natriuretic Peptide (Less than 100) pg/mL Urine Color Yellow (Yellow) Urine Clarity Clear (Clear) Urine pH 6.0 (5.0-8.0) pH Units Ur Specific [place] 1.014 (1.010-1.025) Urine Protein 30 H (Neg-Trace) mg/dL Urine Glucose (UA) Normal (Normal) mg/dL Urine Ketones Negative (Negative) mg/dL Urine Blood Moderate H (Negative) Urine Nitrite Positive A (Negative) Urine Bilirubin Negative (Negative) Urine Urobilinogen Normal (Normal) mg/dL Ur Leukocyte Esterase Moderate H (Negative) Urine Microscopic RBC 5-15 H (0-3) per hpf Urine Microscopic WBC 30-50 H (0-3) per hpf Ur Squamous Epith Cells Few (None-Few) per lpf Urine Bacteria Moderate H (None-Few) per hpf Hyaline Casts None Seen (None-Few) per lpf Ur Culture Indicated? YES A (NO) Person Notif of Anna basurto 02/19/19 02/19/19 Range/Units 16:55 16:55 WBC (4.3-11.1) K/mcL RBC (4.19-5.50) M/mcL Hgb (12.9-16.9) g/dL Hct (37.5-50.1) % MCV (83.0-100.0) fL MCH (28.0-33.3) pg MCHC (31.6-35.5) g/dL RDW (11.5-14.5) % Plt Count (140-400) K/mcL MPV (9.4-12.4) fL Immature Gran % (0-4) % Seg Neutrophils % % Lymphocytes % % Monocytes % % Eosinophils % % Basophils % % Neutrophils # (1.6-8.9) K/mcL Lymphocytes # (0.6-4.6) K/mcL Monocytes # (0.0-1.3) K/mcL Eosinophils # (0.0-0.6) K/mcL Basophils # (0.0-0.2) K/mcL PT (9.4-12.1) Seconds INR APTT (26.0-36.0) Seconds Sample Site ABG pH (7.32-7.45) pH Units ABG pCO2 (35-45) mmHg ABG pO2 (85-104) mmHg ABG HCO3 (21-27) mEq/L ABG Total CO2 (20-26) mEq/L ABG O2 Saturation (95-98) % ABG Base Excess (-2 to 3) mEq/L Pablo Test VBG pH (7.32-7.42) pH Units VBG pCO2 (41-51) mmHg VBG pO2 (25-50) mmHg VBG HCO3 (21-27) mEq/L Respiration Rate O2 Delivery Device Inspired O2 (1-15=lpm [id number]=%) PEEP cm H2O Pressure Support cm H2O Sodium (136-145) mEq/L Potassium (3.5-5.1) mEq/L Chloride (98-107) mEq/L Carbon Dioxide (23-29) mEq/L BUN (8-23) mg/dL Creatinine (0.70-1.30) mg/dL Est GFR ( Amer) (> 60) Est GFR (Non-Af Amer) (> 60) BUN/Creatinine Ratio (6-26) Glucose (70-105) mg/dL POC Glucose (70-99) mg/dL Calculated Osmolality (280-300) Lactic Acid 0.9 (0.5-2.2) mmol/L Calcium (8.6-10.3) mg/dL Troponin I 0.04 H* (< 0.04) ng/mL B-Natriuretic Peptide (Less than 100) pg/mL Urine Color (Yellow) Urine Clarity (Clear) Urine pH (5.0-8.0) pH Units Ur Specific [place] (1.010-1.025) Urine Protein (Neg-Trace) mg/dL Urine Glucose (UA) (Normal) mg/dL Urine Ketones (Negative) mg/dL Urine Blood (Negative) Urine Nitrite (Negative) Urine Bilirubin (Negative) Urine Urobilinogen (Normal) mg/dL Ur Leukocyte Esterase (Negative) Urine Microscopic RBC (0-3) per hpf Urine Microscopic WBC (0-3) per hpf Ur Squamous Epith Cells (None-Few) per lpf Urine Bacteria (None-Few) per hpf Hyaline Casts (None-Few) per lpf Ur Culture Indicated? (NO) Person Notif of Crit Attestation Statement - Attestation Attestation: I reviewed the residents documentation and agree with the residents assessment and plan of care. I have personally had face to face time with the patient. (Brief History, Brief Exam, and MDM) I personally supervised and was present for the martinez/critical portions of the following procedures completed by the resident: EKG 68 year old male presents to the ED with complaints of SUZAN and AMs and comes from [facility]. Minda states that he was being treatd for a UTI but has multid drug resistnat organisms. It appears that he may also be fluid overloaded and his BNP is 529 and UTI is nitrit positive from his ocasio catheter. We have placed him on bipap as he was hypoxic on baseline oxygen therapy at the [facility]. ABG otherwise at his baseline and does not appear to be retaining CO2.
[2019-02-19] MEDS ORDERED: Naloxone 0.4 MG/ML INJ IVP PRN (15:58)
[2019-02-19] MEDS ORDERED: traMADol 50 MG TABLET PO PRN (15:58)
[2019-02-19] MEDS ORDERED: *HR* Dextrose 50 % in Water (Syg) 50 ML SYRINGE IVP PRN (16:01)
[2019-02-19] MEDS ORDERED: Dextrose Gel 15 GM/37.5 ML TUBE PO PRN ×2 (16:01)
[2019-02-19] MEDS ORDERED: D5% in Water 1,000 ML IVC PRN (16:01)
[2019-02-19 16:30] LABS: ABG Base Excess 0 mEq/L (-2 to 3); ABG HCO3 27 mEq/L (21-27); ABG Oxygen Saturation 57 % (95-98); ABG PCO2 50 mmHg (35-45); ABG PH 7.33 pH Units (7.32-7.45); ABG PO2 32 mmHg (85-104); ABG TCO2 28 mEq/L (20-26); Blood Gas PEEP 6 cm H2O; Blood Gas Pressure Support 6 cm H2O
--- NOTE | 2019-02-19 16:41 | Internal Med History&Physical ---
Date of Encounter: 02/19/19 Time of Encounter: 16:36 Internal Medicine - H&P: HPI Chief complaint: shortness of breath. Admitted From: [facility]term [facility] Facility Plans for Post Hospital Care: Transfer [facility] History of present illness: Mr. Wright is a 68 year old male PMH of DM, CHF, COPD, Pulm HTN, Obesity Hyp oventilation syndrome, and HLD. Information obtained from documented ED chart as patient on BiPap and was not able to provide any information. Per ED note patient was transferred to the ED due to low oxygen level and shortness of breath. Patient was placed on BiPap on route to the ED. In the ED patient was found to be on acute hypoxic respiratory failure due to copd, chf exacerbation and have UTI. During my evaluation patient denied chest pain. Patient admitted to the hospitalist team for management. Past Med Surg Social Fam HX - Past Medical History Medical history: cardiomyopathy, CHF, COPD, diabetes, hyperlipidemia, hy pertension Psychiatric history: depression - Past Surgical History Surgical History: pacemaker/AICD, other Additional surgical history: defibrilator - Social History Smoking Status: Former smoker Smokeless Tobacco Status: No Alcohol use: none Drug use: none - Family History Mother Living Status: Hx Family Cancer: Yes (brain tumor) Father Living Status: Hx Family Respiratory Disorders: Yes (COPD) Hx Family Endocrine Disorder: Yes (DM) Internal Medicine - H&P: Meds Aspirin [Lo-Dose Aspirin EC] 81 mg PO DAILY 02/19/19 [History] Coreg 15.625 mg PO DAILY 02/19/19 [History] Fexofenadine HCl [Allergy Relief] 180 mg PO DAILY 02/19/19 [History] Fluticasone Propionate [Flovent Diskus] 50 mcg IH DAILY 02/19/19 [History] Furosemide [Lasix] 40 mg PO BID 02/19/19 [History] Gabapentin [Neurontin] 300 mg PO TID 02/19/19 [History] Insulin NPH, HUMAN [HumuLIN N] 30 unit SQ HS 02/19/19 [History] Insulin Regular Human [Humulin R] 0 unit SQ TIDAC 02/19/19 [History] Ipratropium/Albuterol Neb [Duoneb] 3 ml IH BID PRN 02/19/19 [History] Isosorbide DInitrate [Isosorbide Dinitrate] 5 mg PO TID 02/19/19 [History] Lidocaine Patch [Lidoderm 5% patch] 1 each TP DAILY 02/19/19 [History] Lovastatin 10 mg PO DAILY 02/19/19 [History] PredniSONE [Deltasone] 40 mg PO DAILY 02/19/19 [History] Sertraline [Zoloft] 100 mg PO DAILY 02/19/19 [History] Sulfamethoxazole/Trimeth DS [Bactrim DS] 1 each PO BID 02/19/19 [History] Tamsulosin [Flomax] 0.4 mg PO DAILY PRN 02/19/19 [History] Tiotropium [Spiriva] 18 mcg IH DAILY 02/19/19 [History] Tramadol HCl [Ultram] 50 mg PO Q4-6H PRN 02/19/19 [History] Trazodone HCl 100 mg PO HS 02/19/19 [History] Trelegy Ellipta 100-62.5-25 1 puff IH DAILY 02/19/19 [History] Ventolin Hfa 2 puff IH Q4-6H PRN 02/19/19 [History] rOPINIRole [Requip] 0.25 mg PO HS 02/19/19 [History] Allergy/AdvReac Type Severity Reaction Status Date / Time No Known Drug Allergies Allergy See Verified 08/20/17 15:01 Comments ROS unobtainable: due to mental status, other (unable to obtain a thorough review of system as patient is on BiPap. ) All Systems PM: A 10-system review of systems was performed and is negative for pertinent findings except as documented above in the HPI. - Cardiovascular Cardiovascular ROS IM: no chest pain - Constitutional Vitals: Temp Pulse Resp BP Pulse Ox 97.7 F 72 18 154/56 97 02/19/19 14:06 02/19/19 16:10 02/19/19 16:10 02/19/19 16:10 02/19/19 16:10 Exam: Vitals: Reviewed General: Morbidly obese, Alert and oriented x3. In mild distress due to shortness of breath Cardiovascular: RRR, normal S1 & S2, no rubs, murmurs or gallops. Lungs: No wheezes, b/l crackles at the bases. Abdomen: Obese, soft, non-tender, no rigidity. Extremities: 2-3+ pitting edema Neurological: No focal neurological abnormalities Rest of the physical exam is non contributory Internal Med - H&P Results - Labs CBC & Chem 7: 02/19/19 14:18 02/19/19 14:18 Labs: Short CBC 02/19/19 Range/Units 14:18 WBC 9.4 (4.3-11.1) K/mcL Hgb 10.2 L (12.9-16.9) g/dL Hct 34.8 L (37.5-50.1) % Plt Count 196 (140-400) K/mcL Neutrophils # 8.3 (1.6-8.9) K/mcL BMP 02/19/19 14:18 Sodium 137 Potassium 5.0 Chloride 103 Carbon Dioxide 25 BUN 49 H Creatinine 1.76 H Glucose 155 H Calcium 9.1 Cardiac Enzymes 02/19/19 Range/Units 14:18 Troponin I 0.04 H* (< 0.04) ng/mL Urine 02/19/19 Range/Units 14:43 Urine Color Yellow (Yellow) Urine Clarity Clear (Clear) Urine pH 6.0 (5.0-8.0) pH Units Ur Specific [place] 1.014 (1.010-1.025) Urine Protein 30 H (Neg-Trace) mg/dL Urine Glucose (UA) Normal (Normal) mg/dL - ABG Interpretation ABG results: 02/19/19 02/19/19 14:18 16:23 ABG pH 7.33 ABG pCO2 50 H ABG pO2 32 L* ABG HCO3 27 ABG Total CO2 28 H ABG O2 Saturation 57 L ABG Base Excess 0 VBG pH 7.36 VBG pCO2 45 VBG pO2 37 VBG HCO3 26 - Impressions ITS Impressions Chest X-Ray 02/19/19 14:11 IMPRESSION: Congestive heart failure with bibasilar hypoaeration D/ / Polo Johnson MD / Polo Johnson MD Interpreting Provider: Polo Johnson MD - Diagnostic Studies Chest x-ray Status: image reviewed by me (pulmonary vascular congestion) - Assessment and Plan (1) CHF (congestive heart failure) Current Visit: No Status: Acute Assessment and plan: patient volume overloaded, with b/l crackles, and 3+ pitting edema. TTE: LVEF 50%. Mild segmental left ventricular systolic dysfunction. Mildly dilated left ventricle with mild concentric left ventricular hypertrophy. Mild left ventricular diastolic dysfunction. Mildly dilated right ventricle with mild right ventricular hypokinesis. Mild biatrial enlargement. Moderate aortic stenosis with mild-moderate aortic regurgitation. Mild mitral regurgitation. Plan - started on furosemide 40mg/IV BID - strict intake and output. - fluids restriction to 1.5 litters a day - low dose bb added Qualifiers: Heart failure type: combined systolic and diastolic Heart failure chronicity: acute on chronic Qualified Code(s): I50.43 - Acute on chronic combined systolic (congestive) and diastolic (congestive) heart failure (2) Fluid overload Current Visit: Yes Status: Acute Assessment and plan: plan of care as above. Qualifiers: Hypervolemia type: unspecified Qualified Code(s): E87.70 - Fluid overload, unspecified (3) UTI (urinary tract infection) Current Visit: Yes Status: Acute Assessment and plan: will start patient empirically on ceftriaxone 1gm/IV daily. urine culture and blood culture ordered Qualifiers: Urinary tract infection type: site unspecified Hematuria presence: without hematuria Qualified Code(s): N39.0 - Urinary tract infection, site not specifi ed (4) COPD exacerbation Current Visit: No Status: Acute Assessment and plan: No wheezing during my evaluation but patient had already received IV steroids and nebs treatment. patient in no distress, easily arousable, O2sat on the monitor >92%, good lung volume. Plan - will continue bronchodilators Q4RT scheduled - methyl-prednisolone 40mg/IV BID - on antibiotics empirically - NPO plus accu-checks Q6HR and lispro medium dose sliding scale - continue BiPAP - Will re-check ABG in 40 minutes - patient needs to be at the intermediate care unit, due to high risk for intubation (5) Acute and chronic respiratory failure with hypoxia Current Visit: No Status: Resolved Assessment and plan: plan of care as above. (6) DVT prophylaxis Current Visit: No Status: Chronic Assessment and plan: started on heparin Subq (7) Hyperlipidemia Current Visit: No Status: Chronic Assessment and plan: will resume patient home medication after verified by the pharmacy. Qualifiers: Hyperlipidemia type: unspecified Qualified Code(s): E78.5 - Hyperlipidemia, unspecified (8) Pulmonary hypertension Current Visit: No Status: Chronic (9) T2DM (type 2 diabetes mellitus) Current Visit: No Status: Chronic Assessment and plan: patient NPO as he is on BiPaP and he is at high risk for intubation. on lipro medium dose sliding scale Q6HRs. Qualifiers: Diabetes mellitus chcf insulin use: with terminal operations manager use Diabetes mellitus complication status: without complication Qualified Code(s): E11.9 - Type 2 diabetes mellitus without complications; Z79.4 - termite control representative (current) use of insulin (10) Morbid obesity with BMI of 45.0-49.9, adult Current Visit: No Status: Chronic - Time Spent With Patient Total time spent is greater than 50% in coordination of care (as documented) at patient's floor/unit and/or counseling patient: Greater than 35 minutes (45)
[2019-02-19 16:58] LABS: Prothrombin Time 11.3 Seconds (9.4-12.1)
[2019-02-19] MEDS ORDERED: Furosemide 40 MG/4 ML VIAL IVP SCH (17:00)
[2019-02-19] MEDS ORDERED: Azithromycin 500 MG in D5% in Water 250 ML IVPB SCH (17:00)
[2019-02-19 17:01] LABS: Activated Partial Thrombo Time 30.8 Seconds (26.0-36.0)
[2019-02-19 18:32] LABS: ABG Base Excess 0 mEq/L (-2 to 3); ABG HCO3 25 mEq/L (21-27); ABG Oxygen Saturation 94 % (95-98); ABG PCO2 43 mmHg (35-45); ABG PH 7.38 pH Units (7.32-7.45); ABG PO2 71 mmHg (85-104); ABG TCO2 27 mEq/L (20-26); Blood Gas PEEP 6 cm H2O; Blood Gas Pressure Support 6 cm H2O
[2019-02-19] MEDS: cefTRIAXone 1,000 MG in Water for inj. (sterile) 10 ML IVP SCH (19:00)
[2019-02-19] MEDS: MethylPREDNISolone 40 MG/ML VIAL IVP SCH (19:01)
[2019-02-19] MEDS: *HR* Heparin 5,000 UNIT/ML VIAL SQ SCH (19:01)
[2019-02-19] MEDS: Insulin LISPRO 300 UNITS/3 ML VIAL SQ SCH (19:45)
[2019-02-19] MEDS: Ipratropium/Albuterol Neb 3 ML IH SCH ×2 (20:00→23:52)
[2019-02-19] MEDS: Furosemide 40 MG/4 ML VIAL IVP SCH (21:02)
[2019-02-20] MEDS: Insulin LISPRO 300 UNITS/3 ML VIAL SQ SCH ×5 (00:24→20:59)
[2019-02-20] MEDS: Ipratropium/Albuterol Neb 3 ML IH SCH ×6 (04:33→23:31)
[2019-02-20] MEDS: MethylPREDNISolone 40 MG/ML VIAL IVP SCH ×2 (06:04→17:53)
[2019-02-20] MEDS: *HR* Heparin 5,000 UNIT/ML VIAL SQ SCH ×2 (06:04→17:52)
[2019-02-20 07:14] LABS: Basophils % 0.1 %; Hematocrit 37.2 % (37.5-50.1); Hemoglobin 11.5 g/dL (12.9-16.9); Immature Granulocytes % 1.4 % (0-4); Lymphocytes # 0.8 K/mcL (0.6-4.6); Lymphocytes % 8.1 %; Mean Corpuscular HGB Conc 30.9 g/dL (31.6-35.5); Mean Corpuscular Hemoglobin 26.3 pg (28.0-33.3); Mean Corpuscular Volume 84.9 fL (83.0-100.0); Mean Platelet Volume 10.4 fL (9.4-12.4); Monocytes # 0.4 K/mcL (0.0-1.3); Monocytes % 3.5 %; Neutrophils # 8.6 K/mcL (1.6-8.9); Platelet Count 204 K/mcL (140-400); Red Blood Count 4.38 M/mcL (4.19-5.50); Red Cell Distribution Width 15.6 % (11.5-14.5); Segmented Neutrophils % 86.9 %; White Blood Count 9.9 K/mcL (4.3-11.1)
[2019-02-20 07:40] LABS: Calcium 9.3 mg/dL (8.6-10.3); Magnesium 2.4 mg/dL (1.6-2.6); Phosphorous 4.3 mg/dL (2.7-4.5); Potassium 4.1 mEq/L (3.5-5.1); Troponin I 0.04 ng/mL (< 0.04)
[2019-02-20] MEDS: Furosemide 40 MG/4 ML VIAL IVP SCH ×2 (08:18→17:51)
[2019-02-20] MEDS: Aspirin Enteric Coated 81 MG Tablet PO SCH (08:18)
--- NOTE | 2019-02-20 14:51 | Internal Med Progress Note ---
Hospitalist Progress Note - Encounter Date of Encounter: 02/20/19 Time of Encounter: 14:50 - Subjective Interval History: I have seen and evaluated the patient at bedside. Patient awake, alert and oriented today. In no distress. reports his breathing is much better today and he is able to lay flat. denies chest pain, shortness of breath, nausea or vomiti ng. - Exam Vitals: Temp Pulse Resp BP Pulse Ox 97.8 F 88 19 133/102 95 02/20/19 11:42 02/20/19 11:45 02/20/19 11:42 02/20/19 11:42 02/20/19 11:42 Exam: Vitals: Reviewed General: Morbidly obese, Alert and oriented x4. In no distress Cardiovascular: RRR, normal S1 & S2, no rubs, murmurs or gallops. Lungs: No wheezes, minimal crackles at the bases. Abdomen: Obese, soft, non-tender, no rigidity. NABS in all 4 quadrants Extremities: 2+ pitting edema Neurological: No focal neurological abnormalities Rest of the physical exam is non contributory - Assessment and Plan (1) CHF (congestive heart failure) Current Visit: No Status: Acute Assessment and Plan: patient with significant improvement on his respiratory status. saturation >3% on 3 litters of O2 by nasal cannula. total negative balance 4.7 litters Plan: To continue IV diruresis with furosemide 40mg/IV BID strict intake and output water restriction to 1.5 litters a day. daily weight Continue low dose beta-romy (2) Fluid overload Current Visit: Yes Status: Acute Assessment and Plan: improving. patient diuresing well. plan of care as above. (3) UTI (urinary tract infection) Current Visit: Yes Status: Acute Assessment and Plan: continue ceftriazone 1mg/IV daily. urine culture: pending final report (4) COPD exacerbation Current Visit: No Status: Acute Assessment and Plan: No wheezing on auscultation. Plan - DC IV steroids - Prednisone 40mg/PO daily - on bronchodilators Q4RT - Nocturnal BiPAP - DC azithromycin - continue O2 by nasal cannula, titrate for O2 sat >92% (5) Acute and chronic respiratory failure with hypoxia Current Visit: No Status: Resolved Assessment and Plan: plan of care as above. (6) Hyperlipidemia Current Visit: No Status: Chronic Assessment and Plan: on Lovastatin 10mg/PO daily (7) Pulmonary hypertension Current Visit: No Status: Chronic (8) T2DM (type 2 diabetes mellitus) Current Visit: No Status: Chronic Assessment and Plan: blood sugar sub-optimally controlled. Plan: - levemir 10 unit/BID added - on lispro medium dose sliding scale ac - carbs controlled diet (9) Morbid obesity with BMI of 45.0-49.9, adult Current Visit: No Status: Chronic (10) CKD (chronic kidney disease) stage 3, GFR 30-59 ml/min Current Visit: Yes Status: Chronic Assessment and Plan: Kidney function close to baseline when compared with old BMP. nephro-protective strategies. DVT Prophylaxis: On heparin subq - Summary of Assessment and Plan Summary of Assessment and Plan: Patient to remain in the hospital to continue IV diuresis - Time Spent with Patient Total time spent is greater than 50% in coordination of care (as documented) at patient's floor/unit and/or counseling patient: Greater than 35 minutes (40) Plan of Care Discussed with: patient (and the nurse.) Internal Medicine: Result - Labs CBC & Chem 7: 02/20/19 06:28 02/20/19 06:28 Labs: Short CBC 02/20/19 Range/Units 06:28 WBC 9.9 (4.3-11.1) K/mcL Hgb 11.5 L (12.9-16.9) g/dL Hct 37.2 L (37.5-50.1) % Plt Count 204 (140-400) K/mcL Neutrophils # 8.6 (1.6-8.9) K/mcL BMP 02/19/19 02/20/19 14:18 06:28 Sodium 137 138 Potassium 5.0 4.1 Chloride 103 99 Carbon Dioxide 25 25 BUN 49 H 48 H Creatinine 1.76 H 1.61 H Glucose 155 H 191 H Calcium 9.1 9.3 Cardiac Enzymes 02/19/19 02/19/19 02/19/19 Range/Units 14:18 16:55 22:28 Troponin I 0.04 H* 0.04 H* 0.04 H* (< 0.04) ng/mL 02/20/19 Range/Units 06:28 Troponin I 0.04 H* (< 0.04) ng/mL Urine 02/19/19 Range/Units 14:43 Urine Color Yellow (Yellow) Urine Clarity Clear (Clear) Urine pH 6.0 (5.0-8.0) pH Units Ur Specific [place] 1.014 (1.010-1.025) Urine Protein 30 H (Neg-Trace) mg/dL Urine Glucose (UA) Normal (Normal) mg/dL - ABG Interpretation ABG results: ABG ABG pH 7.38 pH Units (7.32-7.45) 02/19/19 18:29 ABG pCO2 43 mmHg (35-45) 02/19/19 18:29 ABG pO2 71 mmHg (85-104) L 02/19/19 18:29 ABG O2 Saturation 94 % (95-98) L 02/19/19 18:29 PT/INR, D-dimer PT 11.3 Seconds (9.4-12.1) 02/19/19 14:18 Consult Discharge Plan - Plan Referrals: Ander Blankenship MD [Non-Partnered Physician] - (Patient is from [facility] no PCP appointment needed) (1) CHF (congestive heart failure) Qualifiers: Heart failure type: combined systolic and diastolic Heart failure chronicity: acute on chronic Qualified Code(s): I50.43 - Acute on chronic combined systolic (congestive) and diastolic (congestive) heart failure (2) Fluid overload Qualifiers: Hypervolemia type: unspecified Qualified Code(s): E87.70 - Fluid overload, unspecified (3) UTI (urinary tract infection) Qualifiers: Urinary tract infection type: site unspecified Hematuria presence: without hematuria Qualified Code(s): N39.0 - Urinary tract infection, site not specified (6) Hyperlipidemia Qualifiers: Hyperlipidemia type: unspecified Qualified Code(s): E78.5 - Hyperlipidemia, unspecified (8) T2DM (type 2 diabetes mellitus) Qualifiers: Diabetes mellitus terminal operator insulin use: with intermediate use Diabetes mellitus complication status: without complication Qualified Code(s): E11.9 - Type 2 diabetes mellitus without complications; Z79.4 - roasterman (current) use of insulin
--- NOTE | 2019-02-20 16:27 | Electrocardiograph Report ---
[address] [place], [place] [address] Test Date: 2019-02-19 Pat Name: Angel Wright Department: [id number] Room: 2N02 Gender: M Home Health Assistant: : 1950 Requested By: Colt Emerson Order Number: [id number] Reading MD: Jonas Wolff Measurements Intervals [place] Rate: 68 P: 50 MT: 194 QRS: -38 QRSD: 98 T: 135 QT: 413 QTc: 440 Interpretive Statements Sinus rhythm Inferior infarct, old Anterior infarct, old Electronically Signed On 02-20-2019 16:26:01 EDT by Jonas Wolff
[2019-02-20] MEDS: cefTRIAXone 1,000 MG in Water for inj. (sterile) 10 ML IVP SCH (17:51)
[2019-02-20] MEDS: Insulin DETEMIR 100 UNIT/ML X5UNITS SQ SCH (20:58)
[2019-02-21] MEDS: traMADol 50 MG TABLET PO PRN ×3 (03:04→17:57)
[2019-02-21] MEDS: Ipratropium/Albuterol Neb 3 ML IH SCH ×6 (03:16→23:36)
[2019-02-21] MEDS: *HR* Heparin 5,000 UNIT/ML VIAL SQ SCH ×2 (05:34→17:47)
[2019-02-21] MEDS: MethylPREDNISolone 40 MG/ML VIAL IVP SCH ×2 (05:34→17:59)
[2019-02-21] MEDS: Insulin LISPRO 300 UNITS/3 ML VIAL SQ SCH ×4 (08:13→20:20)
[2019-02-21] MEDS: Aspirin Enteric Coated 81 MG Tablet PO SCH (11:16)
[2019-02-21] MEDS: Furosemide 40 MG/4 ML VIAL IVP SCH ×2 (11:17→17:42)
[2019-02-21] MEDS: predniSONE 20 MG TABLET PO SCH (11:17)
[2019-02-21] MEDS: Insulin DETEMIR 100 UNIT/ML X5UNITS SQ SCH ×2 (12:06→20:20)
[2019-02-21] MEDS: Gabapentin 300 MG CAPSULE PO SCH ×3 (12:07→20:20)
[2019-02-21] MEDS ORDERED: Ondansetron ODT 4 MG TAB.RAPDIS SL PRN (13:30)
--- NOTE | 2019-02-21 16:04 | Internal Med Progress Note ---
Hospitalist Progress Note - Encounter Date of Encounter: 02/21/19 Time of Encounter: 16:02 - Subjective Interval History: Evaluated patient earlier this morning. Was wearing BiPAP mask. He had been complaining of back pain earlier. No fever or chills reported overnight. Shortness of breath slowly improving. Bilateral was in the room, BiPAP mask was taken off and patient was placed on nasal cannula and he was tolerating it well. - Exam Vitals: Temp Pulse Resp BP Pulse Ox 98.2 F 94 18 123/91 93 02/21/19 12:17 02/21/19 12:17 02/21/19 15:31 02/21/19 12:17 02/21/19 15:31 Exam: General: Patient is alert, moderate distress, ENT: BiPAP mask in place Respiratory: Coarse breath sounds bilaterally Cardiovascular: Regular rate and rhythm. s1 and s2 normal No clicks, rubs, gallops, or murmurs. Bilateral pedal edema Abdomen: Abdomen is soft, nontender. Bowel sounds are present Musculoskeletal: Spontaneously moving all extremities Skin: warm, dry, intact. Neuro: Alert oriented x 3 normal cranial nerves, no focal deficits - Assessment and Plan (1) Acute and chronic respiratory failure with hypoxia Current Visit: Yes Status: Acute (2) Morbid obesity with BMI of 45.0-49.9, adult Current Visit: No Status: Chronic (3) COPD exacerbation Current Visit: No Status: Acute (4) UTI (urinary tract infection) Current Visit: Yes Status: Acute (5) T2DM (type 2 diabetes mellitus) Current Visit: No Status: Chronic (6) Hyperlipidemia Current Visit: Yes Status: Chronic (7) CHF (congestive heart failure) Current Visit: Yes Status: Acute (8) Pulmonary hypertension Current Visit: Yes Status: Chronic (9) Fluid overload Current Visit: Yes Status: Acute (10) CKD (chronic kidney disease) stage 3, GFR 30-59 ml/min Current Visit: Yes Status: Chronic DVT Prophylaxis: On subcutaneous heparin - Summary of Assessment and Plan Summary of Assessment and Plan: Acute on chronic combined congestive heart failure: Patient continues to respond well to intravenous diuretics. Will continue IV Lasix for another day. Continue fluid restriction. Discussed with the patient the importance of fluid restriction to prevent volume overload and readmissions. Acute on chronic hypoxic respiratory failure: Due to COPD exacerbation and CHF. Wean FiO2 as tolerated. Use BiPAP as needed. COPD exacerbation: Continue bronchodilators and prednisone. Catheter associated urinary tract infection: Patient has chronic indwelling Harper catheter. Urine culture growing gram-negative rods. Previous cultures were positive for Pseudomonas. Unclear if this was treated. We will await culture results before changing antibiotics for now. Continue ceftriaxone. Diabetes mellitus type 2: Improved control. Continue current insulin regimen. Diabetic diet. Morbid obesity Chronic kidney disease stage III: Creatinine was 1.61 yesterday. Will recheck levels. Moderate risk for complications. - Time Spent with Patient Total time spent is greater than 50% in coordination of care (as documented) at patient's floor/unit and/or counseling patient: Internal Medicine: Result - Labs CBC & Chem 7: 02/20/19 06:28 02/20/19 06:28 - ABG Interpretation ABG results: ABG ABG pH 7.38 pH Units (7.32-7.45) 02/19/19 18:29 ABG pCO2 43 mmHg (35-45) 02/19/19 18:29 ABG pO2 71 mmHg (85-104) L 02/19/19 18:29 ABG O2 Saturation 94 % (95-98) L 02/19/19 18:29 PT/INR, D-dimer PT 11.3 Seconds (9.4-12.1) 02/19/19 14:18 Consult Discharge Plan - Plan Referrals: Ander Blankenship MD [Non-Partnered Physician] - (Patient is from [facility] no PCP appointment needed) (4) UTI (urinary tract infection) Qualifiers: Urinary tract infection type: catheter-associated UTI Indwelling urinary catheter type: indwelling urethral catheter Encounter type: initial encounter Qualified Code(s): T83.511A - Infection and inflammatory reaction due to indwelling urethral catheter, initial encounter; N39.0 - Urinary tract infection, site not specified (5) T2DM (type 2 diabetes mellitus) Qualifiers: Diabetes mellitus termite treater helper insulin use: with fpc use Diabetes mellitus complication status: without complication Qualified Code(s): E11.9 - Type 2 diabetes mellitus without complications; Z79.4 - termite treater helper (current) use of insulin (6) Hyperlipidemia Qualifiers: Hyperlipidemia type: unspecified Qualified Code(s): E78.5 - Hyperlipidemia, unspecified (7) CHF (congestive heart failure) Qualifiers: Heart failure type: combined systolic and diastolic Heart failure chronicity: acute on chronic Qualified Code(s): I50.43 - Acute on chronic combined systolic (congestive) and diastolic (congestive) heart failure (9) Fluid overload Qualifiers: Hypervolemia type: other Qualified Code(s): E87.79 - Other fluid overload
[2019-02-21] MEDS: cefTRIAXone 1,000 MG in Water for inj. (sterile) 10 ML IVP SCH (17:44)
[2019-02-21] MEDS: rOPINIRole 0.25 MG TABLET PO SCH (20:19)
[2019-02-21] MEDS: traZODone 50 MG TABLET PO SCH (20:20)
[2019-02-22] MEDS: Ipratropium/Albuterol Neb 3 ML IH SCH ×6 (03:54→23:44)
[2019-02-22 05:10] LABS: Basophils % 0.2 %; Eosinophils % 0.1 %; Hematocrit 35.5 % (37.5-50.1); Immature Granulocytes % 1.4 % (0-4); Lymphocytes # 1.5 K/mcL (0.6-4.6); Lymphocytes % 11.1 %; Mean Corpuscular Hemoglobin 26.3 pg (28.0-33.3); Mean Corpuscular Volume 84.7 fL (83.0-100.0); Mean Platelet Volume 10.5 fL (9.4-12.4); Monocytes # 0.8 K/mcL (0.0-1.3); Monocytes % 6.1 %; Neutrophils # 10.7 K/mcL (1.6-8.9); Platelet Count 183 K/mcL (140-400); Red Blood Count 4.19 M/mcL (4.19-5.50); Red Cell Distribution Width 15.7 % (11.5-14.5); Segmented Neutrophils % 81.1 %; White Blood Count 13.2 K/mcL (4.3-11.1)
[2019-02-22] MEDS: *HR* Heparin 5,000 UNIT/ML VIAL SQ SCH ×2 (05:17→16:14)
[2019-02-22] MEDS: MethylPREDNISolone 40 MG/ML VIAL IVP SCH (05:17)
[2019-02-22 05:31] LABS: Calcium 9.2 mg/dL (8.6-10.3); Potassium 4.1 mEq/L (3.5-5.1)
--- NOTE | 2019-02-22 08:57 | Infectious Disease Consult ---
Infectious Disease-Consult - Encounter Date/Time Date of Encounter: 02/22/19 Time of Encounter: 08:53 - Data of Consult Patient: new to practice Reason for consult: MDRO UTI Consult date: 02/22/19 Requesting Physician: Kristina Kerr Primary Care Provider: PCP NONE - HPI HPI: Mr. Wright is a 68-year-old male with past medical history of cardiomyopathy, CKD, CHF, COPD, diabetes, hyperlipidemia, hypertension, and obesity hypoventilation syndrome. The patient was admitted to the hospital 02/19/19 for fluid overload and UTI. We are consulted 02/22/19 for further workup and treatment recommendations for multidrug resistant UTI. Briefly, the patient is a 68 year old male with past medical history as stated above. He presented to the emergency department from the [facility], [place] with complaints of hypoxia and altered mental status. Upon arrival, he was afebrile hemodynamically stable. He had been placed on BiPAP per EMS and was oxygenating at 100%. Laboratory studies revealed an elevated serum creatinine consistent with his chronic kidney disease. Lactic acid was normal. White blood cell count was normal. He had a chest x-ray that showed findings consistent with CHF. Urinalysis was positive for nitrates, moderate leukocyte esterase, 30-50 white cells, moderate bacteria. Blood cultures were obtained 2 sets and are no growth to date. He was started empirically on IV Rocephin and admitted to the hospital for further evaluation. Since admission, the patient has remained afebrile and hemodynamically stable. He has developed leukocytosis today, but was started on IV steroids on admission. This morning, his urine culture report ported positive for multidrug resistant Pseudomonas and gram-positive cocci. His IV antibiotics were transitioned from Rocephin to colistin. We have been asked to evaluate and make further recommendations. During my exam today, the patient states that prior to admission he had felt generally poor for about a week. He denies any specific fevers, chills, or rigors. Denies any headache or neck pain. Reports worsening shortness of breath with a moist nonproductive cough. Denied any pain in his chest. Denied nausea, vomiting, diarrhea, or constipation. States his appetite was pretty good prior to admission as well. Denied any abdominal pain, dysuria, flank pain, or obdulio blood in his urine. Denies any oral thrush or skin rashes. States has a chronic indwelling Harper catheter secondary to chronic urinary retention and states it was changed about 2 weeks ago. The patient has been residing at a local extended care facility since November when he went into cardiac arrest and developed what sounds like an anoxic brain injury. He states he has been working with therapy pretty regularly and is to the point now where he is able to stand with assistance. Spoke with the staff at the [facility] to tell me that he was started on oral Bactrim prior to admission for an upper respiratory issue. She also tells me that the patient had a urine culture collected a couple of days prior to admission that has come back positive since the patient was admitted for multidrug resistant Pseudomonas as well as VRE. As previously mentioned, the patient's been residing at a local extended care facility. He denies tobacco, alcohol, or illicit drug use. Denies chronic infectious diseases. Denies any recent travel outside the [facility]. - ROS Review of Systems: All systems reviewed and no additional remarkable complaints except as stated. - Results CBC & Chem 7: 02/23/19 08:53 02/23/19 08:53 - Exam Vitals: Temp Pulse Resp BP Pulse Ox 98.1 F 75 15 133/87 94 02/22/19 07:31 02/22/19 07:31 02/22/19 07:35 02/22/19 07:31 02/22/19 07:35 Exam: Head: Atraumatic, normal inspection, normocephalic. Eye: EOMI, PERRLA, no scleral icterus noted. ENT: Mucous membranes moist. No odontogenic infection noted. Neck: Normal inspection, no meningismus. Respiratory: Clear to auscultation. No rales, respiratory distress, rhonchi, or wheezes noted. Cardiovascular: Regular rate and rhythm, S1 and S2 audible. No murmurs, rubs, or gallops. GI: Soft, obese, normal bowel sounds. Non-tender. Harper catheter draining clear yellow urine. Extremities:No joint swelling, pedal edema, or tenderness noted. Back: Normal inspection. No vertebral tenderness noted. No CVAT tenderness noted. Neurological: Alert, oriented 3, no focal deficits. Psychiatric: normal affect, normal mood. Skin: Dry, intact, warm. Normal color. No rashes. Carvedilol 12.5 mg PO BID 02/19/19 [History] Fexofenadine HCl [Allergy Relief] 180 mg PO DAILY PRN 02/19/19 [History] Fluticasone/Umeclidin/Vilanter [Trelegy Ellipta 100-62.5-25] 1 puff IH DAILY 02/19/19 [History] Furosemide [Lasix] 40 mg PO BID 02/19/19 [History] Insulin NPH, HUMAN [HumuLIN N] 30 unit SQ HS 02/19/19 [History] Insulin Regular Human [Humulin R] 0 unit SQ TIDWM 02/19/19 [History] Isosorbide DInitrate [Isosorbide Dinitrate] 5 mg PO TID 02/19/19 [History] Lidocaine Patch [Lidoderm 5% patch] 1 patch TP DAILY PRN 02/19/19 [History] Lovastatin 10 mg PO DAILY 02/19/19 [History] Sertraline [Zoloft] 100 mg PO DAILY 02/19/19 [History] Tamsulosin [Flomax] 0.4 mg PO HS 02/19/19 [History] Tiotropium [Spiriva] 18 mcg IH DAILY 02/19/19 [History] Trazodone HCl 100 mg PO HS 02/19/19 [History] rOPINIRole [Requip] 0.25 mg PO HS 02/19/19 [History] Acetaminophen [Tylenol 650mg SUPP] 650 mg RC Q4H PRN 02/20/19 [History] Acetaminophen [Tylenol] 650 mg PO Q4H PRN 02/20/19 [History] Albuterol Sulfate [Ventolin Hfa] 2 puff IH Q4H PRN 02/20/19 [History] Aspirin 81 mg PO DAILY 02/20/19 [History] Bisacodyl [Gentle Laxative] 10 mg RC DAILY PRN 02/20/19 [History] Carvedilol 3.125 mg PO QAM 02/20/19 [History] Chloraseptic Mulberry [Chloraseptic] 1 spray MM Q2H PRN 02/20/19 [History] Fluticasone Propionate Nasal [Flonase] 2 spray NS DAILY 02/20/19 [History] Glucagon,Human Recombinant [Glucagon Emergency Kit] 1 mg IJ AD PRN 02/20/19 [History] Guaifenesin [Diabetic Tussin Ex] 200 mg PO Q4H PRN 02/20/19 [History] Insulin NPH, HUMAN [HumuLIN N] 50 unit SQ QAM 02/20/19 [History] Ipratropium/Albuterol Sulfate [Iprat-Albut 0.5-3(2.5) mg/3 ml] 3 ml IH BID PRN 02/20/19 [History] Loperamide HCl [Anti-Diarrheal] 2 mg PO Q4H PRN MDD 8MG/24HR 02/20/19 [History] Mintox Suspension 30 ml PO BID PRN 02/20/19 [History] Neomycin [place]/Bacitrac Zn/Poly [Triple Antibiotic Ointment] 1 appl TP DAILY 02/20/19 [History] Neomycin [place]/Bacitrac Zn/Poly [Triple Antibiotic Ointment] 1 appl TP DAILY PRN 02/20/19 [History] Saline Nasal Mulberry [Deaf Smith Nasal Mulberry] 1 spray NS DAILY PRN 02/20/19 [History] Gabapentin [Neurontin] 300 mg PO TID #30 capsule 02/23/19 [Rx] Tramadol HCl [Ultram] 50 mg PO Q4H PRN 5 Days #20 tablet 02/23/19 [Rx] predniSONE [PredniSONE] 10 mg PO DAILY #20 tablet 02/23/19 [Rx] Allergy/AdvReac Type Severity Reaction Status Date / Time No Known Drug Allergies Allergy See Verified 02/20/19 15:10 Comments - Assessment and Plan (1) Leukocytosis Status: Acute Noted today. Likely secondary to steroids. No other SIRS criteria. Afebrile. Blood cultures drawn 02/19/19 are NGTD x 2 sets. Qualifiers: Leukocytosis type: unspecified Qualified Code(s): D72.829 - Elevated white blood cell count, unspecified SNOMED Code(s): 335607324, 098726892 (2) UTI (urinary tract infection) Status: Ruled-out Causative organism: MDRO PSEA and likely VRE based on culture from the ECF. True infection vs. colonization. The patient had no specific urinary complaints and no sepsis criteria noted on admission. Additionally, he has improved without adequate treatment. Currently on Colistin. Qualifiers: Urinary tract infection type: catheter-associated UTI Indwelling urinary catheter type: indwelling urethral catheter Encounter type: initial encounter Qualified Code(s): T83.511A - Infection and inflammatory reaction due to indwelling urethral catheter, initial encounter; N39.0 - Urinary tract infection, site not specified SNOMED Code(s): 27821925 (3) CHF exacerbation Status: Acute CXR showed findings consistent with CHF exacerbation. TTE completed 11/28/18 showed an EF of 50%. Further workup and management per the primary team. Qualifiers: Heart failure type: unspecified Qualified Code(s): I50.9 - Heart failure, unspecified SNOMED Code(s): 655597300, 93726662151059 (4) Metabolic encephalopathy Status: Resolved Etiology unclear, but most likely related to hypoxia but UTI could aslo be contributing. Improved. SNOMED Code(s): 58164713 (5) Acute and chronic respiratory failure with hypoxia Status: Acute Likely secondary to CHF and COPD exacerbation. Improved. SNOMED Code(s): 77890144, 692143231 (6) Elevated troponin Status: Acute SNOMED Code(s): 080201222, 492337034, 014313201 (7) COPD (chronic obstructive pulmonary disease) Status: Chronic Qualifiers: COPD type: unspecified COPD Qualified Code(s): J44.9 - Chronic obstructive pulmonary disease, unspecified SNOMED Code(s): 33559297 (8) CHF (congestive heart failure) Status: Chronic Qualifiers: Heart failure type: diastolic Heart failure chronicity: acute on chronic Qualified Code(s): I50.33 - Acute on chronic diastolic (congestive) heart failure SNOMED Code(s): 50077798 (9) Diabetes Status: Chronic Recommend aggressive glucose monitoring and control. Management per the primary team. Qualifiers: Diabetes mellitus type: type 2 Diabetes mellitus residential insulin use: with residential use Diabetes mellitus complication status: with hyperglycemia Qualified Code(s): E11.65 - Type 2 diabetes mellitus with hyperglycemia; Z79.4 - rn long term care (current) use of insulin; Z79.4 - group home (current) use of insulin; Z79.4 - rn long term care (current) use of insulin; Z79.4 - group home (current) use of insulin SNOMED Code(s): 46515424 (10) Morbid obesity with BMI of 45.0-49.9, adult Status: Chronic SNOMED Code(s): 007199646, 37558313088386 (11) Chronic kidney disease Status: Acute Serum creatinine elevated dating back to 2018. Appears to be at baseline. Patient is high risk for JENN with the use of IV colistin. Qualifiers: Chronic kidney disease stage: unspecified stage Qualified Code(s): N18.9 - Chronic kidney disease, unspecified SNOMED Code(s): 840684429 - Recommendations Recommendations: The patient is clinically improved despite an adequate antibiotic therapy, it is unlikely that the patient's symptoms were related to the bacteriuria. At this point, would not recommend any further antibiotics. Discontinue IV colistin. Observe off antibiotics. No further recommendations from the ID team. We will sign off. Please r econsult if needed. Past Med Surg Social Fam HX - Past Medical History Medical history: cardiomyopathy, CHF, COPD, diabetes, hyperlipidemia, hypertension Psychiatric history: depression - Past Surgical History Surgical History: pacemaker/AICD, other Additional surgical history: defibrilator - Social History Smoking Status: Former smoker Smokeless Tobacco Status: No Alcohol use: none Drug use: none - Family History Mother Living Status: Hx Family Cancer: Yes (brain tumor) Father Living Status: Hx Family Respiratory Disorders: Yes (COPD) Hx Family Endocrine Disorder: Yes (DM) Consult Discharge Plan - Plan Instructions: Heart Failure (DC) Referrals: Ander Blankenship MD [Non-Partnered Physician] - (Patient is from [facility] no PCP appointment needed) Prescriptions: Gabapentin [Neurontin] 300 mg PO TID #30 capsule predniSONE [PredniSONE] 10 mg PO DAILY #20 tablet Tramadol HCl [Ultram] 50 mg PO Q4H PRN 5 Days #20 tablet PRN Reason: Pain - Attending Attestation I have personally performed a face to face evaluation on this patient. I have reviewed and agree with the care plan. History and Exam by me shows: This is an addendum to original report dictated by Yani Ardon CNP. Please refer to Yani's note for full detail. Agree with above history of present illness, review of system and physical exam findings. Assessment and plan: 1.Leukocytosis likely steroid induced 2.Urinary tract infection urine culture positive for multidrug resistant organism pseudomonas aeruginosa and previously VRE from the extended care facility. Patient is asymptomatic. No other sepsis criteria. Likely a colonizer. 3.CHF exacerbation 4.Metabolic encephalopathy 5.Acute on chronic respiratory failure with hypoxia Recommendations Clinically patient doing great is no he did not get treated for the UTI. He is back to baseline. We feel that all of this was due to fluid overload and hypoxia. We will continue to observe off antibiotics and see how he does clinically.
[2019-02-22] MEDS ORDERED: Colistin (Colistimethate) 300 MG in 0.9 % Sodium Chloride 50 ML IVPB ONE (09:00)
[2019-02-22] MEDS: Gabapentin 300 MG CAPSULE PO SCH ×3 (09:32→20:03)
[2019-02-22] MEDS: predniSONE 20 MG TABLET PO SCH (09:32)
[2019-02-22] MEDS: Aspirin Enteric Coated 81 MG Tablet PO SCH (09:32)
[2019-02-22] MEDS: Insulin DETEMIR 100 UNIT/ML X5UNITS SQ SCH ×2 (09:32→20:25)
[2019-02-22] MEDS: Insulin LISPRO 300 UNITS/3 ML VIAL SQ SCH ×4 (09:33→17:05)
--- NOTE | 2019-02-22 12:37 | Internal Med Progress Note ---
Hospitalist Progress Note - Encounter Date of Encounter: 02/22/19 Time of Encounter: 12:34 - Subjective Interval History: Patient evaluated earlier today. Doing much better overall. Denies any fevers or chills. Tolerating diet well. Currently on nasal cannula. Having good urine output. - Exam Vitals: Temp Pulse Resp BP Pulse Ox 98.6 F 88 19 96/74 91 02/22/19 11:49 02/22/19 11:49 02/22/19 11:49 02/22/19 11:49 02/22/19 11:49 Exam: General: Patient is alert, moderate distress, ENT: On nasal cannula Respiratory: Coarse breath sounds bilaterally Cardiovascular: Regular rate and rhythm. s1 and s2 normal No clicks, rubs, gallops, or murmurs. Bilateral pedal edema improving. Abdomen: Abdomen is soft, nontender. Bowel sounds are present Musculoskeletal: Spontaneously moving all extremities Skin: warm, dry, intact. Neuro: Alert oriented x 3 normal cranial nerves, no focal deficits - Assessment and Plan (1) Acute and chronic respiratory failure with hypoxia Current Visit: Yes Status: Acute (2) Morbid obesity with BMI of 45.0-49.9, adult Current Visit: Yes Status: Chronic (3) COPD exacerbation Current Visit: Yes Status: Acute (4) UTI (urinary tract infection) Current Visit: Yes Status: Acute (5) T2DM (type 2 diabetes mellitus) Current Visit: Yes Status: Chronic (6) Hyperlipidemia Current Visit: Yes Status: Chronic (7) CHF (congestive heart failure) Current Visit: Yes Status: Acute (8) Pulmonary hypertension Current Visit: Yes Status: Chronic (9) Fluid overload Current Visit: Yes Status: Acute (10) CKD (chronic kidney disease) stage 3, GFR 30-59 ml/min Current Visit: Yes Status: Chronic DVT Prophylaxis: On subcutaneous heparin - Summary of Assessment and Plan Summary of Assessment and Plan: Acute on chronic combined congestive heart failure: Patient has had -7 L fluid balance. Doing well overall. Will transition to oral Lasix. Acute on chronic hypoxic respiratory failure: Improved. Currently on nasal cannula. Continue to use BiPAP as needed. COPD exacerbation: Continue bronchodilators and prednisone. Stop Solu-Medrol. Possible Catheter associated urinary tract infection: Patient has chronic indwelling Harper catheter. Urine culture growing Pseudomonas multidrug resistant and VRE. Consulted infectious disease. Most likely colonization as patient is asymptomatic. May not require further antibiotic treatment. We will await infectious disease recommendations. Diabetes mellitus type 2: Blood glucose elevated this morning but improved since then. Will increase his Levemir dosage to 15 units twice a day Morbid obesity Chronic kidney disease stage III: Creatinine 1.83 today. We will transition to oral Lasix. Monitor renal function. Moderate risk for complications. - Time Spent with Patient Total time spent is greater than 50% in coordination of care (as documented) at patient's floor/unit and/or counseling patient: Internal Medicine: Result - Labs CBC & Chem 7: 02/22/19 04:37 02/22/19 04:37 Labs: Short CBC 02/22/19 Range/Units 04:37 WBC 13.2 H (4.3-11.1) K/mcL Hgb 11.0 L (12.9-16.9) g/dL Hct 35.5 L (37.5-50.1) % Plt Count 183 (140-400) K/mcL Neutrophils # 10.7 H (1.6-8.9) K/mcL BMP 02/22/19 04:37 Sodium 137 Potassium 4.1 Chloride 97 L Carbon Dioxide 29 BUN 69 H Creatinine 1.83 H Glucose 116 H Calcium 9.2 - ABG Interpretation ABG results: ABG ABG pH 7.38 pH Units (7.32-7.45) 02/19/19 18:29 ABG pCO2 43 mmHg (35-45) 02/19/19 18:29 ABG pO2 71 mmHg (85-104) L 02/19/19 18:29 ABG O2 Saturation 94 % (95-98) L 02/19/19 18:29 PT/INR, D-dimer PT 11.3 Seconds (9.4-12.1) 02/19/19 14:18 Consult Discharge Plan - Plan Referrals: Ander Blankenship MD [Non-Partnered Physician] - (Patient is from [facility] no PCP appointment needed) (4) UTI (urinary tract infection) Qualifiers: Urinary tract infection type: catheter-associated UTI Indwelling urinary cat heter type: indwelling urethral catheter Encounter type: initial encounter Qualified Code(s): T83.511A - Infection and inflammatory reaction due to indwelling urethral catheter, initial encounter; N39.0 - Urinary tract infection, site not specified (5) T2DM (type 2 diabetes mellitus) Qualifiers: 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 insulin use: with shelter use Diabetes mellitus complication status: without complication Qualified Code(s): E11.9 - Type 2 di abetes mellitus without complications; Z79.4 - rn plastics (current) use of insulin (6) Hyperlipidemia Qualifiers: Hyperlipidemia type: unspecified Qualified Code(s): E78.5 - Hyperlipidemia, unspecified (7) CHF (congestive heart failure) Qualifiers: Heart failure type: combined systolic and diastolic Heart failure chronicity: acute on chronic Qualified Code(s): I50.43 - Acute on chronic combined systolic (congestive) and diastolic (congestive) heart failure (9) Fluid overload Qualifiers: Hypervolemia type: other Qualified Code(s): E87.79 - Other fluid overload
[2019-02-22] MEDS ORDERED: Saline Nasal Spray 44 ML BOTTLE NS PRN ×2 (14:09→14:18)
[2019-02-22] MEDS ORDERED: GuaiFENesin Liq 200 MG/10 ML UDC PO PRN (14:09)
[2019-02-22] MEDS ORDERED: Bisacodyl 10 MG RECTAL SUPPOSITORY RC PRN (14:09)
[2019-02-22] MEDS ORDERED: Chloraseptic Spray 177 ML BOTTLE MM PRN (14:09)
[2019-02-22] MEDS: Furosemide 40 MG TABLET PO SCH (16:09)
[2019-02-22] MEDS: rOPINIRole 0.25 MG TABLET PO SCH (20:03)
[2019-02-22] MEDS: traZODone 50 MG TABLET PO SCH (20:03)
[2019-02-22] MEDS: Acetaminophen 325 MG TABLET PO PRN (20:27)
[2019-02-22] MEDS ORDERED: Colistin (Colistimethate) 150 MG in 0.9 % Sodium Chloride 50 ML IVPB SCH (21:00)
[2019-02-22] MEDS ORDERED: Insulin LISPRO 300 UNITS/3 ML VIAL SQ SCH (21:00)
[2019-02-23] MEDS: Ipratropium/Albuterol Neb 3 ML IH SCH ×3 (03:55→11:48)
[2019-02-23] MEDS: *HR* Heparin 5,000 UNIT/ML VIAL SQ SCH (05:49)
[2019-02-23] MEDS: Insulin LISPRO 300 UNITS/3 ML VIAL SQ SCH ×2 (08:49→12:48)
[2019-02-23] MEDS ORDERED: Fluticasone Propionate Nasal 50 MCG/SPRAY BOTTLE NS SCH (09:00)
[2019-02-23] MEDS ORDERED: LOVASTATIN 10 MG PO SCH (09:00)
[2019-02-23 09:12] LABS: White Blood Count 15.4 K/mcL (4.3-11.1)
[2019-02-23 09:13] LABS: Basophils % 0.1 %; Eosinophils % 0.1 %; Hematocrit 39.9 % (37.5-50.1); Hemoglobin 12.3 g/dL (12.9-16.9); Immature Granulocytes % 1.6 % (0-4); Lymphocytes # 1.6 K/mcL (0.6-4.6); Lymphocytes % 10.4 %; Mean Corpuscular HGB Conc 30.8 g/dL (31.6-35.5); Mean Corpuscular Hemoglobin 26.1 pg (28.0-33.3); Mean Corpuscular Volume 84.7 fL (83.0-100.0); Mean Platelet Volume 11.1 fL (9.4-12.4); Monocytes # 0.8 K/mcL (0.0-1.3); Monocytes % 5.2 %; Neutrophils # 12.7 K/mcL (1.6-8.9); Platelet Count 196 K/mcL (140-400); Red Blood Count 4.71 M/mcL (4.19-5.50); Red Cell Distribution Width 15.4 % (11.5-14.5); Segmented Neutrophils % 82.6 %
[2019-02-23 09:33] LABS: Calcium 9.4 mg/dL (8.6-10.3); Potassium 4.3 mEq/L (3.5-5.1)
[2019-02-23] MEDS: Aspirin Enteric Coated 81 MG Tablet PO SCH (09:38)
[2019-02-23] MEDS: Gabapentin 300 MG CAPSULE PO SCH (09:39)
[2019-02-23] MEDS: Furosemide 40 MG TABLET PO SCH (09:39)
[2019-02-23] MEDS: predniSONE 20 MG TABLET PO SCH (09:39)
[2019-02-23] MEDS: Furosemide 40 MG/4 ML VIAL IVP SCH (10:32)
[2019-02-23] MEDS: Insulin DETEMIR 100 UNIT/ML X5UNITS SQ SCH (10:36)
[2019-02-23] MEDS: Acetaminophen 325 MG TABLET PO PRN (10:36)
--- NOTE | 2019-02-23 12:05 | Discharge Summary ---
- NOTES TO OUTPATIENT PROVIDER Notes to Outpatient Provider: Patient with a history of CHF, COPD, diabetes, hypertension, obesity hypoventilation syndrome and chronic indwelling Harper catheter hospitalized here with acute hypoxic respiratory failure due to CHF exacerbation and fluid overload. Along with underlying COPD exacerbation. Patient received intravenous Lasix with good urine output. He was also placed on steroids for his COPD exacerbation in addition to bronchodilators. She was suspected of having UTI and his urine culture grew Pseudomonas and vancomycin- resistant enterococcus. However this appears to be chronic colonization and not active infection. Infectious disease evaluated patient and recommended no further antibiotics at this time. Patient is now doing much better and is clinically stable for discharge back to skilled rehabilitation. He needs to continue fluid restriction to 1.5 L per day. Orders not resulted at time of discharge: Pending orders 02/19/19 14:33 Culture,Blood [BC] Stat 02/19/19 14:43 Culture,Urine [RM] Stat Date of Encounter: 02/23/19 Time of Encounter: 12:03 - Discharge Diagnosis (1) Acute and chronic respiratory failure with hypoxia Priority: Primary Status: Acute (2) CHF (congestive heart failure) Priority: Secondary Status: Acute Qualifiers: Heart failure type: combined systolic and diastolic Heart failure chronicity: acute on chronic Qualified Code(s): I50.43 - Acute on chronic combined systolic (congestive) and diastolic (congestive) heart failure (3) Morbid obesity with BMI of 45.0-49.9, adult Priority: Secondary Status: Chronic (4) COPD exacerbation Priority: Secondary Status: Acute (5) UTI (urinary tract infection) Priority: Secondary Status: Ruled-out Comments: Patient has chronic indwelling Harper catheter with positive cultures suggesting long-standing colonization. Urinary catheter has been exchanged here. Qualifiers: Urinary tract infection type: catheter-associated UTI Indwelling urinary catheter type: indwelling urethral catheter Encounter type: initial encounter Qualified Code(s): T83.511A - Infection and inflammatory reaction due to indwelling urethral catheter, initial encounter; N39.0 - Urinary tract infection, site not specified (6) T2DM (type 2 diabetes mellitus) Priority: Secondary Status: Chronic Qualifiers: Diabetes mellitus continuous churn buttermaker insulin use: with 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 Diabetes mellitus complication status: without complication Qualified Code(s): E11.9 - Type 2 diabetes mellitus without complications; 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 Wright is a 68 year old male Patient with a history of CHF, COPD, diabetes, hypertension, obesity hypoventilation syndrome and chronic indwelling Harper catheter hospitalized here with acute hypoxic respiratory failure due to CHF exacerbation and fluid overload. Along with underlying COPD exacerbation. Patient received intravenous Lasix with good urine output. He was also placed on steroids for his COPD exacerbation in addition to bronchodilators. She was suspected of having UTI and his urine culture grew Pseudomonas and vancomycin- resistant enterococcus. However this appears to be chronic colonization and not active infection. Infectious disease evaluated patient and recommended no further antibiotics at this time. Patient is now doing much better and is clinically stable for discharge back to skilled rehabilitation. He needs to continue fluid restriction to 1.5 L per day. Discharge discussed with: patient, nurse - Time Spent with Patient Total time spent providing and/or coordinating discharge services: Time spent: Greater than 30 minutes (35 min) - Discharge Medications Prescriptions: New predniSONE [PredniSONE] 10 mg PO DAILY #20 tablet Continued Carvedilol 12.5 mg PO BID Isosorbide DInitrate [Isosorbide Dinitrate] 5 mg PO TID Insulin Regular Human [Humulin R] 0 unit SQ TIDWM Insulin NPH, HUMAN [HumuLIN N] 30 unit SQ HS Tamsulosin [Flomax] 0.4 mg PO HS Lidocaine Patch [Lidoderm 5% patch] 1 patch TP DAILY PRN PRN Reason: Pain Trazodone HCl 100 mg PO HS Furosemide [Lasix] 40 mg PO BID Fluticasone/Umeclidin/Vilanter [Trelegy Ellipta 100-62.5-25] 1 puff IH DAILY rOPINIRole [Requip] 0.25 mg PO HS Tiotropium [Spiriva] 18 mcg IH DAILY Sertraline [Zoloft] 100 mg PO DAILY Lovastatin 10 mg PO DAILY Fexofenadine HCl [Allergy Relief] 180 mg PO DAILY PRN PRN Reason: Allergy Symptoms Acetaminophen [Tylenol] 650 mg PO Q4H PRN PRN Reason: Pain Acetaminophen [Tylenol 650mg SUPP] 650 mg RC Q4H PRN PRN Reason: Fever Albuterol Sulfate [Ventolin Hfa] 2 puff IH Q4H PRN PRN Reason: Shortness Of Breath Aspirin 81 mg PO DAILY Bisacodyl [Gentle Laxative] 10 mg RC DAILY PRN PRN Reason: Constipation Carvedilol 3.125 mg PO QAM Chloraseptic [place] [Chloraseptic] 1 spray MM Q2H PRN PRN Reason: Sore Throat Fluticasone Propionate Nasal [Flonase] 2 spray NS DAILY Glucagon,Human Recombinant [Glucagon Emergency Kit] 1 mg IJ AD PRN PRN Reason: BLOOD SUGAR <60 Guaifenesin [Diabetic Tussin Ex] 200 mg PO Q4H PRN PRN Reason: Cough Insulin NPH, HUMAN [HumuLIN N] 50 unit SQ QAM Ipratropium/Albuterol Sulfate [Iprat-Albut 0.5-3(2.5) mg/3 ml] 3 ml IH BID PRN PRN Reason: Shortness Of Breath Loperamide HCl [Anti-Diarrheal] 2 mg PO Q4H PRN MDD 8MG/24HR PRN Reason: Loose Stool Mintox Suspension 30 ml PO BID PRN PRN Reason: Indigestion Neomycin [place]/Bacitrac Zn/Poly [Triple Antibiotic Ointment] 1 appl TP DAILY Neomycin [place]/Bacitrac Zn/Poly [Triple Antibiotic Ointment] 1 appl TP DAILY PRN PRN Reason: RUPTURED BLISTER Saline Nasal [place] [[place] Nasal [place]] 1 spray NS DAILY PRN PRN Reason: ALLERGIES Gabapentin [Neurontin] 300 mg PO TID #30 capsule Tramadol HCl [Ultram] 50 mg PO Q4H PRN 5 Days #20 tablet PRN Reason: Pain Discontinued Sulfamethoxazole/Trimeth DS [Bactrim DS] 1 tab PO BID PredniSONE [Deltasone] 40 mg PO DAILY Home Medications: Carvedilol 12.5 mg PO BID 02/19/19 [History] Fexofenadine HCl [Allergy Relief] 180 mg PO DAILY PRN 02/19/19 [History] Fluticasone/Umeclidin/Vilanter [Trelegy Ellipta 100-62.5-25] 1 puff IH DAILY 02/19/19 [History] Furosemide [Lasix] 40 mg PO BID 02/19/19 [History] Insulin NPH, HUMAN [HumuLIN N] 30 unit SQ HS 02/19/19 [History] Insulin Regular Human [Humulin R] 0 unit SQ TIDWM 02/19/19 [History] Isosorbide DInitrate [Isosorbide Dinitrate] 5 mg PO TID 02/19/19 [History] Lidocaine Patch [Lidoderm 5% patch] 1 patch TP DAILY PRN 02/19/19 [History] Lovastatin 10 mg PO DAILY 02/19/19 [History] Sertraline [Zoloft] 100 mg PO DAILY 02/19/19 [History] Tamsulosin [Flomax] 0.4 mg PO HS 02/19/19 [History] Tiotropium [Spiriva] 18 mcg IH DAILY 02/19/19 [History] Trazodone HCl 100 mg PO 02/19/19 [History] rOPINIRole [Requip] 0.25 mg PO 02/19/19 [History] Acetaminophen [Tylenol 650mg SUPP] 650 mg RC Q4H PRN 02/20/19 [History] Acetaminophen [Tylenol] 650 mg PO Q4H PRN 02/20/19 [History] Albuterol Sulfate [Ventolin Hfa] 2 puff IH Q4H PRN 02/20/19 [History] Aspirin 81 mg PO DAILY 02/20/19 [History] Bisacodyl [Gentle Laxative] 10 mg RC DAILY PRN 02/20/19 [History] Carvedilol 3.125 mg PO QAM 02/20/19 [History] Chloraseptic [place] [Chloraseptic] 1 spray MM Q2H PRN 02/20/19 [History] Fluticasone Propionate Nasal [Flonase] 2 spray NS DAILY 02/20/19 [History] Glucagon,Human Recombinant [Glucagon Emergency Kit] 1 mg IJ AD PRN 02/20/19 [History] Guaifenesin [Diabetic Tussin Ex] 200 mg PO Q4H PRN 02/20/19 [History] Insulin NPH, HUMAN [HumuLIN N] 50 unit SQ QAM 02/20/19 [History] Ipratropium/Albuterol Sulfate [Iprat-Albut 0.5-3(2.5) mg/3 ml] 3 ml IH BID PRN 02/20/19 [History] Loperamide HCl [Anti-Diarrheal] 2 mg PO Q4H PRN MDD 8MG/24HR 02/20/19 [History] Mintox Suspension 30 ml PO BID PRN 02/20/19 [History] Neomycin [place]/Bacitrac Zn/Poly [Triple Antibiotic Ointment] 1 appl TP DAILY 02/20/19 [History] Neomycin [place]/Bacitrac Zn/Poly [Triple Antibiotic Ointment] 1 appl TP DAILY PRN 02/20/19 [History] Saline Nasal [place] [[place] Nasal [place]] 1 spray NS DAILY PRN 02/20/19 [History] Gabapentin [Neurontin] 300 mg PO TID #30 capsule 02/23/19 [Rx] Tramadol HCl [Ultram] 50 mg PO Q4H PRN 5 Days #20 tablet 02/23/19 [Rx] predniSONE [PredniSONE] 10 mg PO DAILY #20 tablet 02/23/19 [Rx] Allergies/Adverse Reactions: Allergy/AdvReac Type Severity Reaction Status Date / Time No Known Drug Allergies Allergy See Verified 02/20/19 15:10 Comments Date of admission: 02/19/19 17:39 Primary care physician: PCP NONE Consults: 02/22/19 08:19 Consult to Infectious Diseases [CONS] Routine Consulting Provider: [facility] [place] Reason for Consult: Pseudomonas MDR in urine Time Notified: 08:19 Call Completed: Yes 02/23/19 10:44 Consult to Nurse Navigator [CONS] Routine Comment: copd Consult to Fireworks Maker [CONS] Routine Reason for SW Consult: rtn [facility] Discharging clinician: Lilliam Giraldo Anticipated date of discharge: 02/23/19 - Constitutional Vitals: Temp Pulse Resp BP Pulse Ox 98.0 F 66 20 152/68 97 02/23/19 08:06 02/23/19 08:06 02/23/19 11:50 02/23/19 08:06 02/23/19 11:50 Exam: General: Patient is alert, no acute distress, oriented x 3, morbidly obese Respiratory: Prolonged expiratory phase, diminished breath sounds at both bases Cardiovascular: Regular rate and rhythm. s1 and s2 normal No clicks, rubs, gallops, or murmurs. No pedal edema Abdomen: Abdomen is soft, nontender. Bowel sounds are present Musculoskeletal: Spontaneously moving all extremities Skin: warm, dry, intact. Neuro: Alert oriented x 3 normal cranial nerves, no focal deficits - Patient Status Disposition: Transfer SNF Condition: Fair Functional capacity at discharge: wheelchair bound Overall status at discharge: patient is progressing back to baseline - Discharge Instructions Instructions: Heart Failure (DC) Follow Up With: Ander Blankenship MD [Non-Partnered Physician] - (Patient is from [facility] no PCP appointment needed) Forms: ED Satisfaction Letter - Diet and Activity Activity: increase activity as tolerated, wear oxygen at all times Diet: low fat, low cholesterol, low salt diet, other (Fluid restriction to 1.5 L per day)
--- NOTE | 2019-02-23 12:14 | Physician Discharge Referral ---
ExtendedCare Referral Info Provider in Charge after Transfer: PCP Institutional Level of Care: Skilled - Diagnosis (1) Acute and chronic respiratory failure with hypoxia Priority: Primary Status: Acute (2) CHF (congestive heart failure) Priority: Secondary Status: Acute (3) Morbid obesity with BMI of 45.0-49.9, adult Priority: Secondary Status: Chronic (4) COPD exacerbation Priority: Secondary Status: Acute (5) UTI (urinary tract infection) Priority: Secondary Status: Ruled-out (6) T2DM (type 2 diabetes mellitus) Priority: Secondary Status: Chronic (7) Hyperlipidemia Priority: Secondary Status: Chronic (8) Pulmonary hypertension Priority: Secondary Status: Chronic (9) Fluid overload Priority: Secondary Status: Acute (10) CKD (chronic kidney disease) stage 3, GFR 30-59 ml/min Priority: Secondary Status: Chronic Prognosis: Fair Aware of Diagnosis: Patient Aware of Prognosis: Patient - Transfer Medications Prescriptions: Gabapentin [Neurontin] 300 mg PO TID #30 capsule predniSONE [PredniSONE] 10 mg PO DAILY #20 tablet Tramadol HCl [Ultram] 50 mg PO Q4H PRN 5 Days #20 tablet PRN Reason: Pain Home Medications: Carvedilol 12.5 mg PO BID 02/19/19 [History] Fexofenadine HCl [Allergy Relief] 180 mg PO DAILY PRN 02/19/19 [History] Fluticasone/Umeclidin/Vilanter [Trelegy Ellipta 100-62.5-25] 1 puff IH DAILY 02/19/19 [History] Furosemide [Lasix] 40 mg PO BID 02/19/19 [History] Insulin NPH, HUMAN [HumuLIN N] 30 unit SQ HS 02/19/19 [History] Insulin Regular Human [Humulin R] 0 unit SQ TIDWM 02/19/19 [History] Isosorbide DInitrate [Isosorbide Dinitrate] 5 mg PO TID 02/19/19 [History] Lidocaine Patch [Lidoderm 5% patch] 1 patch TP DAILY PRN 02/19/19 [History] Lovastatin 10 mg PO DAILY 02/19/19 [History] Sertraline [Zoloft] 100 mg PO DAILY 02/19/19 [History] Tamsulosin [Flomax] 0.4 mg PO HS 02/19/19 [History] Tiotropium [Spiriva] 18 mcg IH DAILY 02/19/19 [History] Trazodone HCl 100 mg PO HS 02/19/19 [History] rOPINIRole [Requip] 0.25 mg PO HS 02/19/19 [History] Acetaminophen [Tylenol 650mg SUPP] 650 mg RC Q4H PRN 02/20/19 [History] Acetaminophen [Tylenol] 650 mg PO Q4H PRN 02/20/19 [History] Albuterol Sulfate [Ventolin Hfa] 2 puff IH Q4H PRN 02/20/19 [History] Aspirin 81 mg PO DAILY 02/20/19 [History] Bisacodyl [Gentle Laxative] 10 mg RC DAILY PRN 02/20/19 [History] Carvedilol 3.125 mg PO QAM 02/20/19 [History] Chloraseptic [place] [Chloraseptic] 1 spray MM Q2H PRN 02/20/19 [History] Fluticasone Propionate Nasal [Flonase] 2 spray NS DAILY 02/20/19 [History] Glucagon,Human Recombinant [Glucagon Emergency Kit] 1 mg IJ AD PRN 02/20/19 [History] Guaifenesin [Diabetic Tussin Ex] 200 mg PO Q4H PRN 02/20/19 [History] Insulin NPH, HUMAN [HumuLIN N] 50 unit SQ QAM 02/20/19 [History] Ipratropium/Albuterol Sulfate [Iprat-Albut 0.5-3(2.5) mg/3 ml] 3 ml IH BID PRN 02/20/19 [History] Loperamide HCl [Anti-Diarrheal] 2 mg PO Q4H PRN MDD 8MG/24HR 02/20/19 [History] Mintox Suspension 30 ml PO BID PRN 02/20/19 [History] Neomycin [place]/Bacitrac Zn/Poly [Triple Antibiotic Ointment] 1 appl TP DAILY 02/20/19 [History] Neomycin [place]/Bacitrac Zn/Poly [Triple Antibiotic Ointment] 1 appl TP DAILY PRN 02/20/19 [History] Saline Nasal [place] [[place] Nasal [place]] 1 spray NS DAILY PRN 02/20/19 [History] Gabapentin [Neurontin] 300 mg PO TID #30 capsule 02/23/19 [Rx] Tramadol HCl [Ultram] 50 mg PO Q4H PRN 5 Days #20 tablet 02/23/19 [Rx] predniSONE [PredniSONE] 10 mg PO DAILY #20 tablet 02/23/19 [Rx] Allergies/Adverse Reactions: Allergy/AdvReac Type Severity Reaction Status Date / Time No Known Drug Allergies Allergy See Verified 02/20/19 15:10 Comments - Respiratory Orders Oxygen / L per min (3), Other (Use BiPAP at bedtime and as needed at rate of 8 with 12 / 6 mm Hg pressure and 30% FiO2) Smoking Cessation: Smoking cessation has been advised. For more information, call the [place] Tobacco Quit Line at 0-697-HALH-NOW. - Ancillary Orders May use pressure relief devices daily prn - Advance Directives Code Status: Full Code - Rehabiliation Orders Rehab Potential: Fair Rehab Orders: Evaluation for Physical Therapy, Evaluation for Occupational Therapy - Diet Orders Cardiac (Fluid restriction to 1.5 L per day) CERTIFICATION: I certify that the transfer of the above named patient to an Extended Care Facility is necessary for the continuing treatment of the diagnosis listed. The above information is true and accurate reflection of patient's current condition. Confidential - Redisclosure prohibited without a patient's written consent.
[2019-02-23 12:50] VITALS: BP 124/67
== END 2019-02-23 14:08 | DRG 291 ==
LOC: EMEROOARM 14:02 → 2NNU 17:39 → 2ANU 02-22 11:52
PROVIDERS: ADMIT Internal Medicine Nephrology; ATTEND Internal Medicine Nephrology

== ENCOUNTER 2019-02-25 23:39 | Inpatient (IN) ==
--- NOTE | 2019-02-25 23:47 | Emergency Department Note ---
Disposition Clinical Impression: C. difficile colitis, Hyperkalemia, Hypocalcemia, Elevated troponin, Elevated d-dimer Disposition: Admitted As Inpatient Condition: Serious Time of Disposition: 06:10 SOB HPI - General Stated Complaint: SUZAN Time Seen by Provider: 02/25/19 23:41 Source: patient, EMS Mode of arrival: EMS Limitations: no limitations Nursing Notes Reviewed: Yes Vital Signs Reviewed: Yes - History of Present Illness 68-year-old male past medical history of pulmonary embolism, COPD, CHF, diabetes, recurrent pneumonia, and anoxic brain injury, recent history of myocardial infarction on Lasix and insulin presenting for one day history of altered mental status and shortness of breath. Patient is currently at a nursing facility for rehabilitation due to myocardial infarction occurred last month. Patient states he has had right lower extremity pain in the entirety of the limb the past 2 days, however staff noticed that he was not us responding appropriately today developed increased fatigue, noticeable dyspnea and called 911. Paramedics state that the patient was hypoxic into the 7080% range upon initial evaluation but corrected into the 90s with oxygen administration. EMS states patient has otherwise been hemodynamically stable during transport. Patient admits to some nausea as well as the right lower shoulder pain. Patient states he is having no chest pain or any other concerns or complaints at this time. Upon my initial evaluation, my general impression is that the patient is in mild to moderate respiratory distress due to likely CHF or pneumonia as there is diffuse rhonchi and crackles throughout all lung carson. He appears to be fatigued but is otherwise engageable to conversation and answering questions appropriately. There are no overt lateralizing signs, his skin appears to be normal in color, they are not pale, not cyanotic, and not diaphoretic. Pt Subjective Complaint: shortness of breath Onset (ago): day(s) Severity: moderate Improves with: oxygen Known history of: COPD, congestive heart failure, diabetes, recurrent pneumonia, PE, DVT Associated symptoms: Reports: nausea/vomiting Treatment prior to arrival: oxygen Cough present: No - Related Data Home Medications Medication Instructions Recorded Confirmed Carvedilol 12.5 mg PO BID 02/19/19 02/26/19 Fexofenadine HCl [Allergy Relief] 180 mg PO DAILY PRN 02/19/19 02/26/19 Fluticasone/Umeclidin/Vilanter 1 puff IH DAILY 02/19/19 02/26/19 [Trelegy Ellipta 100-62.5-25] Furosemide [Lasix] 40 mg PO BID 02/19/19 02/26/19 Insulin NPH, HUMAN [HumuLIN N] 30 unit SQ 02/19/19 02/26/19 Insulin Regular Human [Humulin R] 0 unit SQ TIDWM 02/19/19 02/26/19 Isosorbide DInitrate [Isosorbide 5 mg PO TID 02/19/19 02/26/19 Dinitrate] Lidocaine Patch [Lidoderm 5% patch] 1 patch TP DAILY PRN 02/19/19 02/26/19 Lovastatin 10 mg PO DAILY 02/19/19 02/26/19 Sertraline [Zoloft] 100 mg PO DAILY 02/19/19 02/26/19 Tamsulosin [Flomax] 0.4 mg PO 02/19/19 02/26/19 Tiotropium [Spiriva] 18 mcg IH DAILY 02/19/19 02/26/19 Trazodone HCl 100 mg PO 02/19/19 02/26/19 rOPINIRole [Requip] 0.25 mg PO 02/19/19 02/26/19 Acetaminophen [Tylenol 650mg SUPP] 650 mg RC Q4H PRN 02/20/19 02/26/19 Acetaminophen [Tylenol] 650 mg PO Q4H PRN 02/20/19 02/26/19 Albuterol Sulfate [Ventolin Hfa] 2 puff IH Q4H PRN 02/20/19 02/26/19 Aspirin 81 mg PO DAILY 02/20/19 02/26/19 Bisacodyl [Gentle Laxative] 10 mg RC DAILY PRN 02/20/19 02/26/19 Carvedilol 3.125 mg PO QAM 02/20/19 02/26/19 Chloraseptic [place] [Chloraseptic] 1 spray MM Q2H PRN 02/20/19 02/26/19 Fluticasone Propionate Nasal 2 spray NS DAILY 02/20/19 02/26/19 [Flonase] Glucagon,Human Recombinant 1 mg IJ AD PRN 02/20/19 02/26/19 [Glucagon Emergency Kit] Guaifenesin [Diabetic Tussin Ex] 200 mg PO Q4H PRN 02/20/19 02/26/19 Insulin NPH, HUMAN [HumuLIN N] 50 unit SQ QAM 02/20/19 02/26/19 Ipratropium/Albuterol Sulfate 3 ml IH BID PRN 02/20/19 02/26/19 [Iprat-Albut 0.5-3(2.5) mg/3 ml] Loperamide HCl [Anti-Diarrheal] 2 mg PO Q4H PRN MDD 8MG/24HR 02/20/19 02/26/19 Mintox Suspension 30 ml PO BID PRN 02/20/19 02/26/19 Neomycin [place]/Bacitrac Zn/Poly 1 appl TP DAILY 02/20/19 02/26/19 [Triple Antibiotic Ointment] Neomycin [place]/Bacitrac Zn/Poly 1 appl TP DAILY PRN 02/20/19 02/26/19 [Triple Antibiotic Ointment] Saline Nasal [place] [[place] Nasal 1 spray NS DAILY PRN 02/20/19 02/26/19 [place]] Previous Rx's Medication Instructions Recorded Gabapentin [Neurontin] 300 mg PO TID #30 capsule 02/23/19 Tramadol HCl [Ultram] 50 mg PO Q4H PRN 5 Days #20 tablet 02/23/19 predniSONE [PredniSONE] 10 mg PO DAILY #20 tablet 02/23/19 Allergies Allergy/AdvReac Type Severity Reaction Status Date / Time No Known Drug Allergies Allergy See Verified 02/20/19 15:10 Comments Review of Systems: *See History of Present Illness for more detail Constitutional: Denies: fever, chills Cardiovascular: Denies: chest pain Respiratory: Admits: dyspnea, denies: cough, hemoptysis Gastrointestinal: Admits to nausea Denies: abdominal pain, vomiting, diarrhea, constipation, hematemesis, melena, hematochezia Genitourinary: Denies: hematuria Musculoskeletal: Patient admits to right lower extremity pain Denies: back pain, neck pain Neurological: Denies: headache, weakness, lightheadedness/dizziness, numbness, paresthesias, difficulty with ambulation. Endocrine: Denies: fatigue All systems ED: reviewed and negative except as stated. Review of Systems: As Per HPI Past Medical History - Past Medical History Medical history: Reports: cardiomyopathy, CHF, COPD, diabetes, hyperlipidemia, hypertension Surgical history: Reports: pacemaker/AICD, other Psychiatric history: Reports: depression - Social History Smoking Status: Former smoker Smokeless Tobacco Status: No Alcohol use: Reports: none Drug use: Reports: none Physical Exam Constitutional: Acute distress due to respiratory status and pain. Patient appe ars to be extremely fatigued. Neuro: GCS 15, no overt focal neurological deficits Head: Atraumatic, normocephalic Eyes: Pupils equal, round and reactive to light, no scleral icterus, no conjunctival injection Neck: Trachea midline without deviation. Anterior neck is supple without swelling. *Chest: Symmetric chest wall rise *Heart: Cardiac rhythm and rate are regular with S1 and S2 , no S3 or S4 appreciated, no murmurs, gallops, rubs, or clicks. *Lungs: Diffuse rhonchi noted with accessory muscle use and prolonged expiratory phase. Abdomen: Abdomen is morbidly obese, soft to palpation, normal bowel sounds. No abdominal bruit auscultated. Non-distended, non-rigid, no organomegaly, no as cites appreciated. No pulsatile mass, no tenderness or guarding to palpation in all four quadrants, no rebound Extremities: no evidence of trauma. Pulses/motor intact in all 4 extremities. Integumentary: warm, dry, intact, normal color. No rash, cyanosis, diaphoresis, erythema, or pallor - General Limitations: altered mental status General appearance: alert, in distress Course - Reevaluation(s) Reevaluation #1: Patient noted to be mildly hyperkalemic and hypocalcemic on laboratory analysis. Patient also has elevated d-dimer and elevated troponin. I will give 1 g of calcium gluconate due to the hyper K Leamy and hypocalcemia, I will initiate standard dose heparin at this time due to the patient's elevated d-dimer and troponin. Reconfirmed patient he has had no abnormal bleeding recently, spe cifically no nosebleeds, no hematemesis no hemoptysis no hematuria hematochezia or melena. Time: 00:46 Reevaluation #2: Patient noted to have likely pseudomembranous colitis on CT scan of the abdomen and pelvis. In the setting of his white blood cell count being 29 this represents severe C. difficile infection. I will begin oral vancomycin and IV Flagyl at this time and place surgery consult for further evaluation of the possible need for colectomy. Time: 01:56 Vital Signs Temperature 98.8 F 02/25/19 23:48 Pulse Rate 117 02/25/19 23:48 Respiratory Rate 24 02/25/19 23:48 Blood Pressure 111/82 02/25/19 23:48 O2 Sat by Pulse Oximetry 94 02/25/19 23:48 Temperature 98.1 F 02/26/19 02:50 Pulse Rate 84 02/26/19 04:48 Respiratory Rate 20 02/26/19 02:50 Blood Pressure 101/70 02/26/19 02:50 O2 Sat by Pulse Oximetry 99 02/26/19 02:50 Oxygen Delivery Oxygen Delivery Nasal Cannula Shortness of Breath/Dyspnea - MDM Narrative Medical decision making narrative: The patient's laboratory analysis is significant for an extremely elevated white count 29, pancolitis on CT abdomen and pelvis suggesting a pseudomembranous colitis. Patient also has elevated troponin and d-dimer with an acute kidney injury on chronic kidney disease. We have started standard dose heparinization for the management of possible DVT/PE and NSTEMI, patient was given 1 g of calcium gluconate due to slightly elevated potassium level and hypocalcemia. Patient started on maintenance fluids. Surgery consult was placed. Patient will be admitted to hospitalist medicine service with recommended ICU admission for further evaluation and management of C. difficile infection in the setting of acute kidney injury, electrolyte abnormalities, elevated d-dimer and troponin. - Lab Data Lab results reviewed: Yes I reviewed the patient's lab results. Result diagrams: 02/25/19 23:49 02/25/19 23:49 Lab Results 02/25/19 02/25/19 02/25/19 Range/Units 23:49 23:49 23:49 WBC 29.1 H D (4.3-11.1) K/mcL RBC 5.29 (4.19-5.50) M/mcL Hgb 13.7 (12.9-16.9) g/dL Hct 44.6 (37.5-50.1) % MCV 84.3 (83.0-100.0) fL MCH 25.9 L (28.0-33.3) pg MCHC 30.7 L (31.6-35.5) g/dL RDW 15.6 H (11.5-14.5) % Plt Count 235 (140-400) K/mcL MPV 11.6 (9.4-12.4) fL Seg Neutrophils % 70.0 % Band Neutrophils % 6.0 H (0-4) % Lymphocytes % 10.0 % Monocytes % 14.0 % Neutrophils # 22.1 H (1.6-8.9) K/mcL Lymphocytes # 2.9 (0.6-4.6) K/mcL Monocytes # 4.1 H (0.0-1.3) K/mcL Nucleated RBCs/100 WBC 0.1 H (0) /100 WBC Reactive Lymphocytes Present A (Not Present) Platelet Estimate Normal (Normal) PT 12.6 H (9.4-12.1) Seconds INR 1.1 APTT 26.1 (26.0-36.0) Seconds D-Dimer 2199 H (0-500) ng/mLFEU Heparin Anti-Xa, Unfract 0.00 L (0.30-0.70) IU/mL ABG pH (7.32-7.45) pH Units ABG pCO2 (35-45) mmHg ABG pO2 (85-104) mmHg ABG HCO3 (21-27) mEq/L ABG Total CO2 (20-26) mEq/L ABG O2 Saturation (95-98) % ABG Base Excess (-2 to 3) mEq/L O2 Delivery Device Inspired O2 (1-15=lpm [id number]=%) Sodium 132 L (136-145) mEq/L Potassium 5.4 H (3.5-5.1) mEq/L Chloride 98 (98-107) mEq/L Carbon Dioxide 20 L (23-29) mEq/L BUN 88 H (8-23) mg/dL Creatinine 2.75 H (0.70-1.30) mg/dL Est GFR ( Amer) 28 L (> 60) Est GFR (Non-Af Amer) 23 L (> 60) BUN/Creatinine Ratio 32 H (6-26) Glucose 156 H (70-105) mg/dL Calculated Osmolality 304 H (280-300) Lactic Acid (0.5-2.2) mmol/L Calcium 8.5 L (8.6-10.3) mg/dL Total Bilirubin 0.6 (0.3-1.0) mg/dL Direct Bilirubin 0.1 (0.0-0.2) mg/dL Indirect Bilirubin 0.5 (0.0-1.2) mg/dL AST 15 (13-39) Units/L ALT 14 (7-52) Units/L Alkaline Phosphatase 70 (34-104) Units/L Creatine Kinase 88 (30-223) Units/L Troponin I 0.10 H* (< 0.04) ng/mL B-Natriuretic Peptide (Less than 100) pg/mL Serum Total Protein 6.1 L (6.4-8.9) g/dL Albumin 3.1 L (3.5-5.7) g/dL Globulin 3.0 (2.4-3.5) g/dL Albumin/Globulin Ratio 1.0 L (1.1-2.2) Ur Specimen Adequacy Urine Color (Yellow) Urine Clarity (Clear) Urine pH (5.0-8.0) pH Units Ur Specific [place] (1.010-1.025) Urine Protein (Neg-Trace) mg/dL Urine Glucose (UA) (Normal) mg/dL Urine Ketones (Negative) mg/dL Urine Blood (Negative) Urine Nitrite (Negative) Urine Bilirubin (Negative) Urine Urobilinogen (Normal) mg/dL Ur Leukocyte Esterase (Negative) Urine Microscopic RBC (0-3) per hpf Urine Microscopic WBC (0-3) per hpf Urine Bacteria (None-Few) per hpf Hyaline Casts (None-Few) per lpf Urine Yeast (None Seen) per hpf Ur Culture Indicated? (NO) 02/25/19 02/25/19 02/26/19 Range/Units 23:49 23:57 01:26 WBC (4.3-11.1) K/mcL RBC (4.19-5.50) M/mcL Hgb (12.9-16.9) g/dL Hct (37.5-50.1) % MCV (83.0-100.0) fL MCH (28.0-33.3) pg MCHC (31.6-35.5) g/dL RDW (11.5-14.5) % Plt Count (140-400) K/mcL MPV (9.4-12.4) fL Seg Neutrophils % % Band Neutrophils % (0-4) % Lymphocytes % % Monocytes % % Neutrophils # (1.6-8.9) K/mcL Lymphocytes # (0.6-4.6) K/mcL Monocytes # (0.0-1.3) K/mcL Nucleated RBCs/100 WBC (0) /100 WBC Reactive Lymphocytes (Not Present) Platelet Estimate (Normal) PT (9.4-12.1) Seconds INR APTT (26.0-36.0) Seconds D-Dimer (0-500) ng/mLFEU Heparin Anti-Xa, Unfract (0.30-0.70) IU/mL ABG pH 7.37 (7.32-7.45) pH Units ABG pCO2 34 L (35-45) mmHg ABG pO2 89 (85-104) mmHg ABG HCO3 20 L (21-27) mEq/L ABG Total CO2 21 (20-26) mEq/L ABG O2 Saturation 97 (95-98) % ABG Base Excess -4 L (-2 to 3) mEq/L O2 Delivery Device Cannula Inspired O2 6.0 (1-15=lpm [id number]=%) Sodium (136-145) mEq/L Potassium (3.5-5.1) mEq/L Chloride (98-107) mEq/L Carbon Dioxide (23-29) mEq/L BUN (8-23) mg/dL Creatinine (0.70-1.30) mg/dL Est GFR ( Amer) (> 60) Est GFR (Non-Af Amer) (> 60) BUN/Creatinine Ratio (6-26) Glucose (70-105) mg/dL Calculated Osmolality (280-300) Lactic Acid 1.7 (0.5-2.2) mmol/L Calcium (8.6-10.3) mg/dL Total Bilirubin (0.3-1.0) mg/dL Direct Bilirubin (0.0-0.2) mg/dL Indirect Bilirubin (0.0-1.2) mg/dL AST (13-39) Units/L ALT (7-52) Units/L Alkaline Phosphatase (34-104) Units/L Creatine Kinase (30-223) Units/L Troponin I (< 0.04) ng/mL B-Natriuretic Peptide 244 H (Less than 100) pg/mL Serum Total Protein (6.4-8.9) g/dL Albumin (3.5-5.7) g/dL Globulin (2.4-3.5) g/dL Albumin/Globulin Ratio (1.1-2.2) Ur Specimen Adequacy Urine Color (Yellow) Urine Clarity (Clear) Urine pH (5.0-8.0) pH Units Ur Specific [place] (1.010-1.025) Urine Protein (Neg-Trace) mg/dL Urine Glucose (UA) (Normal) mg/dL Urine Ketones (Negative) mg/dL Urine Blood (Negative) Urine Nitrite (Negative) Urine Bilirubin (Negative) Urine Urobilinogen (Normal) mg/dL Ur Leukocyte Esterase (Negative) Urine Microscopic RBC (0-3) per hpf Urine Microscopic WBC (0-3) per hpf Urine Bacteria (None-Few) per hpf Hyaline Casts (None-Few) per lpf Urine Yeast (None Seen) per hpf Ur Culture Indicated? (NO) 02/26/19 02/26/19 02/26/19 Range/Units 01:44 03:20 03:20 WBC (4.3-11.1) K/mcL RBC (4.19-5.50) M/mcL Hgb (12.9-16.9) g/dL Hct (37.5-50.1) % MCV (83.0-100.0) fL MCH (28.0-33.3) pg MCHC (31.6-35.5) g/dL RDW (11.5-14.5) % Plt Count (140-400) K/mcL MPV (9.4-12.4) fL Seg Neutrophils % % Band Neutrophils % (0-4) % Lymphocytes % % Monocytes % % Neutrophils # (1.6-8.9) K/mcL Lymphocytes # (0.6-4.6) K/mcL Monocytes # (0.0-1.3) K/mcL Nucleated RBCs/100 WBC (0) /100 WBC Reactive Lymphocytes (Not Present) Platelet Estimate (Normal) PT (9.4-12.1) Seconds INR APTT (26.0-36.0) Seconds D-Dimer (0-500) ng/mLFEU Heparin Anti-Xa, Unfract (0.30-0.70) IU/mL ABG pH (7.32-7.45) pH Units ABG pCO2 (35-45) mmHg ABG pO2 (85-104) mmHg ABG HCO3 (21-27) mEq/L ABG Total CO2 (20-26) mEq/L ABG O2 Saturation (95-98) % ABG Base Excess (-2 to 3) mEq/L O2 Delivery Device Inspired O2 (1-15=lpm [id number]=%) Sodium (136-145) mEq/L Potassium (3.5-5.1) mEq/L Chloride (98-107) mEq/L Carbon Dioxide (23-29) mEq/L BUN (8-23) mg/dL Creatinine (0.70-1.30) mg/dL Est GFR ( Amer) (> 60) Est GFR (Non-Af Amer) (> 60) BUN/Creatinine Ratio (6-26) Glucose (70-105) mg/dL Calculated Osmolality (280-300) Lactic Acid 2.1 (0.5-2.2) mmol/L Calcium (8.6-10.3) mg/dL Total Bilirubin (0.3-1.0) mg/dL Direct Bilirubin (0.0-0.2) mg/dL Indirect Bilirubin (0.0-1.2) mg/dL AST (13-39) Units/L ALT (7-52) Units/L Alkaline Phosphatase (34-104) Units/L Creatine Kinase (30-223) Units/L Troponin I 0.07 H* (< 0.04) ng/mL B-Natriuretic Peptide (Less than 100) pg/mL Serum Total Protein (6.4-8.9) g/dL Albumin (3.5-5.7) g/dL Globulin (2.4-3.5) g/dL Albumin/Globulin Ratio (1.1-2.2) Ur Specimen Adequacy See below A Urine Color Dark Yellow (Yellow) Urine Clarity Turbid A (Clear) Urine pH 5.0 (5.0-8.0) pH Units Ur Specific [place] 1.025 (1.010-1.025) Urine Protein 100 H (Neg-Trace) mg/dL Urine Glucose (UA) Normal (Normal) mg/dL Urine Ketones Negative (Negative) mg/dL Urine Blood Large H (Negative) Urine Nitrite Negative (Negative) Urine Bilirubin Moderate H (Negative) Urine Urobilinogen Normal (Normal) mg/dL Ur Leukocyte Esterase Moderate H (Negative) Urine Microscopic RBC 15-30 H (0-3) per hpf Urine Microscopic WBC 50-100 H (0-3) per hpf Urine Bacteria Many H (None-Few) per hpf Hyaline Casts Few (None-Few) per lpf Urine Yeast Few H (None Seen) per hpf Ur Culture Indicated? YES A (NO) - Radiology Data Radiology results reviewed: Yes I reviewed the patient's radiology results. Abdomen/Pelvis CT 02/26/19 00:00 IMPRESSION: Pancolitis, probably pseudomembranous colitis. Liver nodularity raises the possibility of cirrhosis. D/ / Franck Antonio MD / Franck Antonio MD Interpreting Provider: Franck Antonio MD Chest X-Ray 02/26/19 00:01 IMPRESSION: Bibasilar atelectasis and/or pneumonia. D/ / Franck Antonio MD / Franck Antonio MD Interpreting Provider: Franck Antonio MD - EKG Data EKG attestation: Yes I reviewed and interpreted this EKG. EKG results narrative: The patients EKG shows a sinus rhythm with a computer analyzed rate of 87 beats per minute, NM interval of 165 milliseconds, a QRS duration of 90 milliseconds, a QT/QTc interval of 349 / 420 milliseconds respectively. There are no significant ST segment elevations, depressions, pathologic Q waves, abnormal T- wave inversions, nor any other signs of acute ischemic change. This EKG that was performed today is generally consistent in morphology with prior EKG that was performed on 02/11/2018.
[2019-02-26 00:16] LABS: Hematocrit 44.6 % (37.5-50.1); Hemoglobin 13.7 g/dL (12.9-16.9); Mean Corpuscular HGB Conc 30.7 g/dL (31.6-35.5); Mean Corpuscular Hemoglobin 25.9 pg (28.0-33.3); Mean Corpuscular Volume 84.3 fL (83.0-100.0); Mean Platelet Volume 11.6 fL (9.4-12.4); Nucleated Red Blood Cells 0.1 /100 WBC (0); Platelet Count 235 K/mcL (140-400); Red Blood Count 5.29 M/mcL (4.19-5.50); Red Cell Distribution Width 15.6 % (11.5-14.5)
[2019-02-26 00:18] LABS: White Blood Count 29.1 K/mcL (4.3-11.1)
[2019-02-26 00:28] LABS: INR 1.1; Prothrombin Time 12.6 Seconds (9.4-12.1)
[2019-02-26 00:31] LABS: Activated Partial Thrombo Time 26.1 Seconds (26.0-36.0)
[2019-02-26 00:38] LABS: Albumin 3.1 g/dL (3.5-5.7); Bilirubin,Direct 0.1 mg/dL (0.0-0.2); Bilirubin,Indirect 0.5 mg/dL (0.0-1.2); Bilirubin,Total 0.6 mg/dL (0.3-1.0); Calcium 8.5 mg/dL (8.6-10.3); Potassium 5.4 mEq/L (3.5-5.1); Total Protein 6.1 g/dL (6.4-8.9); Troponin I 0.1 ng/mL (< 0.04)
[2019-02-26 00:42] LABS: Lymphocytes # 2.9 K/mcL (0.6-4.6); Monocytes # 4.1 K/mcL (0.0-1.3); Neutrophils # 22.1 K/mcL (1.6-8.9); Platelet Estimate Normal (Normal); Reactive Lymphocytes Present (Not Present)
[2019-02-26] MEDS ORDERED: *HR* Heparin 5,000 UNIT/ML VIAL IVP ONE (00:45)
[2019-02-26] MEDS ORDERED: *HR* Heparin 5,000 UNIT/ML VIAL IVP PRN ×2 (00:45)
[2019-02-26] MEDS ORDERED: Calcium Gluconate 1gm/50mL 1 GM/50 ML BAG IVPB ONE ×2 (01:00→01:15)
[2019-02-26 01:29] LABS: ABG Base Excess -4 mEq/L (-2 to 3); ABG HCO3 20 mEq/L (21-27); ABG Oxygen Saturation 97 % (95-98); ABG PCO2 34 mmHg (35-45); ABG PH 7.37 pH Units (7.32-7.45); ABG PO2 89 mmHg (85-104); ABG TCO2 21 mEq/L (20-26)
[2019-02-26] MEDS ORDERED: Vancomycin Oral Soln 125 MG/2.5 ML UDC PO STA (01:52)
[2019-02-26] MEDS ORDERED: metroNIDAZOLE 500 MG TABLET PO ONE (01:53)
[2019-02-26] MEDS: Heparin 25,000 UNIT/250 ML D5W 25,000 UNIT/250 ML IV.SOLN IVC SCH ×2 (01:58→14:03)
[2019-02-26 02:01] LABS: Bilirubin,Urine Moderate (Negative); Blood,Urine Large (Negative); Clarity,Urine Turbid (Clear); Color,Urine Dark Yellow (Yellow); Glucose,Urine (UA) Normal (Normal); Ketones,Urine Negative (Negative); Leukocyte Esterase,Urine Moderate (Negative); Nitrite,Urine Negative (Negative); Protein,Urine 100 mg/dL (Neg-Trace); Specific Gravity,Urine 1.025 (1.010-1.025); Urobilinogen,Urine Normal (Normal)
--- NOTE | 2019-02-26 02:03 | Emergency Department Note ---
Disposition Clinical Impression: C. difficile colitis, Hyperkalemia, Hypocalcemia, Elevated troponin, Elevated d-dimer Disposition: Admitted As Inpatient Condition: Serious Time of Disposition: 02:46 General Adult HPI - General Chief complaint: ED Shortness of Breath/Dyspnea Stated complaint: SUZAN Time Seen by Provider: 02/25/19 23:41 Source: patient, EMS Mode of arrival: EMS Limitations: altered mental status Nursing Notes Reviewed: Yes Vital Signs Reviewed: Yes - History of Present Illness Pain Scale: 4 - Related Data Home Medications Medication Instructions Recorded Confirmed Carvedilol 12.5 mg PO BID 02/19/19 02/26/19 Fexofenadine HCl [Allergy Relief] 180 mg PO DAILY PRN 02/19/19 02/26/19 Fluticasone/Umeclidin/Vilanter 1 puff IH DAILY 02/19/19 02/26/19 [Trelegy Ellipta 100-62.5-25] Furosemide [Lasix] 40 mg PO BID 02/19/19 02/26/19 Insulin NPH, HUMAN [HumuLIN N] 30 unit SQ 02/19/19 02/26/19 Insulin Regular Human [Humulin R] 0 unit SQ TIDWM 02/19/19 02/26/19 Isosorbide DInitrate [Isosorbide 5 mg PO TID 02/19/19 02/26/19 Dinitrate] Lidocaine Patch [Lidoderm 5% patch] 1 patch TP DAILY PRN 02/19/19 02/26/19 Lovastatin 10 mg PO DAILY 02/19/19 02/26/19 Sertraline [Zoloft] 100 mg PO DAILY 02/19/19 02/26/19 Tamsulosin [Flomax] 0.4 mg PO 02/19/19 02/26/19 Tiotropium [Spiriva] 18 mcg IH DAILY 02/19/19 02/26/19 Trazodone HCl 100 mg PO 02/19/19 02/26/19 rOPINIRole [Requip] 0.25 mg PO 02/19/19 02/26/19 Acetaminophen [Tylenol 650mg SUPP] 650 mg RC Q4H PRN 02/20/19 02/26/19 Acetaminophen [Tylenol] 650 mg PO Q4H PRN 02/20/19 02/26/19 Albuterol Sulfate [Ventolin Hfa] 2 puff IH Q4H PRN 02/20/19 02/26/19 Aspirin 81 mg PO DAILY 02/20/19 02/26/19 Bisacodyl [Gentle Laxative] 10 mg RC DAILY PRN 02/20/19 02/26/19 Carvedilol 3.125 mg PO QAM 02/20/19 02/26/19 Chloraseptic [place] [Chloraseptic] 1 spray MM Q2H PRN 02/20/19 02/26/19 Fluticasone Propionate Nasal 2 spray NS DAILY 02/20/19 02/26/19 [Flonase] Glucagon,Human Recombinant 1 mg IJ AD PRN 02/20/19 02/26/19 [Glucagon Emergency Kit] Guaifenesin [Diabetic Tussin Ex] 200 mg PO Q4H PRN 02/20/19 02/26/19 Insulin NPH, HUMAN [HumuLIN N] 50 unit SQ QAM 02/20/19 02/26/19 Ipratropium/Albuterol Sulfate 3 ml IH BID PRN 02/20/19 02/26/19 [Iprat-Albut 0.5-3(2.5) mg/3 ml] Loperamide HCl [Anti-Diarrheal] 2 mg PO Q4H PRN MDD 8MG/24HR 02/20/19 02/26/19 Mintox Suspension 30 ml PO BID PRN 02/20/19 02/26/19 Neomycin [place]/Bacitrac Zn/Poly 1 appl TP DAILY 02/20/19 02/26/19 [Triple Antibiotic Ointment] Neomycin [place]/Bacitrac Zn/Poly 1 appl TP DAILY PRN 02/20/19 02/26/19 [Triple Antibiotic Ointment] Saline Nasal [place] [O'Brien Nasal 1 spray NS DAILY PRN 02/20/19 02/26/19 [place]] Previous Rx's Medication Instructions Recorded Gabapentin [Neurontin] 300 mg PO TID #30 capsule 02/23/19 Tramadol HCl [Ultram] 50 mg PO Q4H PRN 5 Days #20 tablet 02/23/19 predniSONE [PredniSONE] 10 mg PO DAILY #20 tablet 02/23/19 Allergies Allergy/AdvReac Type Severity Reaction Status Date / Time No Known Drug Allergies Allergy See Verified 02/20/19 15:10 Comments Past Medical History - Past Medical History Medical history: Reports: cardiomyopathy, CHF, COPD, diabetes, hyperlipidemia, hypertension Surgical history: Reports: pacemaker/AICD, other Psychiatric history: Reports: depression - Social History Smoking Status: Former smoker Smokeless Tobacco Status: No Alcohol use: Reports: none Drug use: Reports: none Physical Exam - General Limitations: altered mental status General appearance: alert, in distress Course Vital Signs Temperature 98.8 F 02/25/19 23:48 Pulse Rate 117 02/25/19 23:48 Respiratory Rate 24 02/25/19 23:48 Blood Pressure 111/82 02/25/19 23:48 O2 Sat by Pulse Oximetry 94 02/25/19 23:48 Temperature 98.1 F 02/26/19 02:50 Pulse Rate 84 02/26/19 04:48 Respiratory Rate 20 02/26/19 02:50 Blood Pressure 101/70 02/26/19 02:50 O2 Sat by Pulse Oximetry 99 02/26/19 02:50 Oxygen Delivery Oxygen Delivery Nasal Cannula Medical Decision Making - Medical Records Medical records reviewed: Yes I reviewed the patient's medical records. - Lab Data Lab results reviewed: Yes I reviewed the patient's lab results. Result diagrams: 02/25/19 23:49 02/25/19 23:49 Lab Results 02/25/19 02/25/19 02/25/19 Range/Units 23:49 23:49 23:49 WBC 29.1 H D (4.3-11.1) K/mcL RBC 5.29 (4.19-5.50) M/mcL Hgb 13.7 (12.9-16.9) g/dL Hct 44.6 (37.5-50.1) % MCV 84.3 (83.0-100.0) fL MCH 25.9 L (28.0-33.3) pg MCHC 30.7 L (31.6-35.5) g/dL RDW 15.6 H (11.5-14.5) % Plt Count 235 (140-400) K/mcL MPV 11.6 (9.4-12.4) fL Seg Neutrophils % 70.0 % Band Neutrophils % 6.0 H (0-4) % Lymphocytes % 10.0 % Monocytes % 14.0 % Neutrophils # 22.1 H (1.6-8.9) K/mcL Lymphocytes # 2.9 (0.6-4.6) K/mcL Monocytes # 4.1 H (0.0-1.3) K/mcL Nucleated RBCs/100 WBC 0.1 H (0) /100 WBC Reactive Lymphocytes Present A (Not Present) Platelet Estimate Normal (Normal) PT 12.6 H (9.4-12.1) Seconds INR 1.1 APTT 26.1 (26.0-36.0) Seconds D-Dimer 2199 H (0-500) ng/mLFEU Heparin Anti-Xa, Unfract 0.00 L (0.30-0.70) IU/mL ABG pH (7.32-7.45) pH Units ABG pCO2 (35-45) mmHg ABG pO2 (85-104) mmHg ABG HCO3 (21-27) mEq/L ABG Total CO2 (20-26) mEq/L ABG O2 Saturation (95-98) % ABG Base Excess (-2 to 3) mEq/L O2 Delivery Device Inspired O2 (1-15=lpm [id number]=%) Sodium 132 L (136-145) mEq/L Potassium 5.4 H (3.5-5.1) mEq/L Chloride 98 (98-107) mEq/L Carbon Dioxide 20 L (23-29) mEq/L BUN 88 H (8-23) mg/dL Creatinine 2.75 H (0.70-1.30) mg/dL Est GFR ( Amer) 28 L (> 60) Est GFR (Non-Af Amer) 23 L (> 60) BUN/Creatinine Ratio 32 H (6-26) Glucose 156 H (70-105) mg/dL Calculated Osmolality 304 H (280-300) Lactic Acid (0.5-2.2) mmol/L Calcium 8.5 L (8.6-10.3) mg/dL Total Bilirubin 0.6 (0.3-1.0) mg/dL Direct Bilirubin 0.1 (0.0-0.2) mg/dL Indirect Bilirubin 0.5 (0.0-1.2) mg/dL AST 15 (13-39) Units/L ALT 14 (7-52) Units/L Alkaline Phosphatase 70 (34-104) Units/L Creatine Kinase 88 (30-223) Units/L Troponin I 0.10 H* (< 0.04) ng/mL B-Natriuretic Peptide (Less than 100) pg/mL Serum Total Protein 6.1 L (6.4-8.9) g/dL Albumin 3.1 L (3.5-5.7) g/dL Globulin 3.0 (2.4-3.5) g/dL Albumin/Globulin Ratio 1.0 L (1.1-2.2) Ur Specimen Adequacy Urine Color (Yellow) Urine Clarity (Clear) Urine pH (5.0-8.0) pH Units Ur Specific Innis (1.010-1.025) Urine Protein (Neg-Trace) mg/dL Urine Glucose (UA) (Normal) mg/dL Urine Ketones (Negative) mg/dL Urine Blood (Negative) Urine Nitrite (Negative) Urine Bilirubin (Negative) Urine Urobilinogen (Normal) mg/dL Ur Leukocyte Esterase (Negative) Urine Microscopic RBC (0-3) per hpf Urine Microscopic WBC (0-3) per hpf Urine Bacteria (None-Few) per hpf Hyaline Casts (None-Few) per lpf Urine Yeast (None Seen) per hpf Ur Culture Indicated? (NO) 02/25/19 02/25/19 02/26/19 Range/Units 23:49 23:57 01:26 WBC (4.3-11.1) K/mcL RBC (4.19-5.50) M/mcL Hgb (12.9-16.9) g/dL Hct (37.5-50.1) % MCV (83.0-100.0) fL MCH (28.0-33.3) pg MCHC (31.6-35.5) g/dL RDW (11.5-14.5) % Plt Count (140-400) K/mcL MPV (9.4-12.4) fL Seg Neutrophils % % Band Neutrophils % (0-4) % Lymphocytes % % Monocytes % % Neutrophils # (1.6-8.9) K/mcL Lymphocytes # (0.6-4.6) K/mcL Monocytes # (0.0-1.3) K/mcL Nucleated RBCs/100 WBC (0) /100 WBC Reactive Lymphocytes (Not Present) Platelet Estimate (Normal) PT (9.4-12.1) Seconds INR APTT (26.0-36.0) Seconds D-Dimer (0-500) ng/mLFEU Heparin Anti-Xa, Unfract (0.30-0.70) IU/mL ABG pH 7.37 (7.32-7.45) pH Units ABG pCO2 34 L (35-45) mmHg ABG pO2 89 (85-104) mmHg ABG HCO3 20 L (21-27) mEq/L ABG Total CO2 21 (20-26) mEq/L ABG O2 Saturation 97 (95-98) % ABG Base Excess -4 L (-2 to 3) mEq/L O2 Delivery Device Cannula Inspired O2 6.0 (1-15=lpm [id number]=%) Sodium (136-145) mEq/L Potassium (3.5-5.1) mEq/L Chloride (98-107) mEq/L Carbon Dioxide (23-29) mEq/L BUN (8-23) mg/dL Creatinine (0.70-1.30) mg/dL Est GFR ( Amer) (> 60) Est GFR (Non-Af Amer) (> 60) BUN/Creatinine Ratio (6-26) Glucose (70-105) mg/dL Calculated Osmolality (280-300) Lactic Acid 1.7 (0.5-2.2) mmol/L Calcium (8.6-10.3) mg/dL Total Bilirubin (0.3-1.0) mg/dL Direct Bilirubin (0.0-0.2) mg/dL Indirect Bilirubin (0.0-1.2) mg/dL AST (13-39) Units/L ALT (7-52) Units/L Alkaline Phosphatase (34-104) Units/L Creatine Kinase (30-223) Units/L Troponin I (< 0.04) ng/mL B-Natriuretic Peptide 244 H (Less than 100) pg/mL Serum Total Protein (6.4-8.9) g/dL Albumin (3.5-5.7) g/dL Globulin (2.4-3.5) g/dL Albumin/Globulin Ratio (1.1-2.2) Ur Specimen Adequacy Urine Color (Yellow) Urine Clarity (Clear) Urine pH (5.0-8.0) pH Units Ur Specific Innis (1.010-1.025) Urine Protein (Neg-Trace) mg/dL Urine Glucose (UA) (Normal) mg/dL Urine Ketones (Negative) mg/dL Urine Blood (Negative) Urine Nitrite (Negative) Urine Bilirubin (Negative) Urine Urobilinogen (Normal) mg/dL Ur Leukocyte Esterase (Negative) Urine Microscopic RBC (0-3) per hpf Urine Microscopic WBC (0-3) per hpf Urine Bacteria (None-Few) per hpf Hyaline Casts (None-Few) per lpf Urine Yeast (None Seen) per hpf Ur Culture Indicated? (NO) 02/26/19 02/26/19 02/26/19 Range/Units 01:44 03:20 03:20 WBC (4.3-11.1) K/mcL RBC (4.19-5.50) M/mcL Hgb (12.9-16.9) g/dL Hct (37.5-50.1) % MCV (83.0-100.0) fL MCH (28.0-33.3) pg MCHC (31.6-35.5) g/dL RDW (11.5-14.5) % Plt Count (140-400) K/mcL MPV (9.4-12.4) fL Seg Neutrophils % % Band Neutrophils % (0-4) % Lymphocytes % % Monocytes % % Neutrophils # (1.6-8.9) K/mcL Lymphocytes # (0.6-4.6) K/mcL Monocytes # (0.0-1.3) K/mcL Nucleated RBCs/100 WBC (0) /100 WBC Reactive Lymphocytes (Not Present) Platelet Estimate (Normal) PT (9.4-12.1) Seconds INR APTT (26.0-36.0) Seconds D-Dimer (0-500) ng/mLFEU Heparin Anti-Xa, Unfract (0.30-0.70) IU/mL ABG pH (7.32-7.45) pH Units ABG pCO2 (35-45) mmHg ABG pO2 (85-104) mmHg ABG HCO3 (21-27) mEq/L ABG Total CO2 (20-26) mEq/L ABG O2 Saturation (95-98) % ABG Base Excess (-2 to 3) mEq/L O2 Delivery Device Inspired O2 (1-15=lpm [id number]=%) Sodium (136-145) mEq/L Potassium (3.5-5.1) mEq/L Chloride (98-107) mEq/L Carbon Dioxide (23-29) mEq/L BUN (8-23) mg/dL Creatinine (0.70-1.30) mg/dL Est GFR ( Amer) (> 60) Est GFR (Non-Af Amer) (> 60) BUN/Creatinine Ratio (6-26) Glucose (70-105) mg/dL Calculated Osmolality (280-300) Lactic Acid 2.1 (0.5-2.2) mmol/L Calcium (8.6-10.3) mg/dL Total Bilirubin (0.3-1.0) mg/dL Direct Bilirubin (0.0-0.2) mg/dL Indirect Bilirubin (0.0-1.2) mg/dL AST (13-39) Units/L ALT (7-52) Units/L Alkaline Phosphatase (34-104) Units/L Creatine Kinase (30-223) Units/L Troponin I 0.07 H* (< 0.04) ng/mL B-Natriuretic Peptide (Less than 100) pg/mL Serum Total Protein (6.4-8.9) g/dL Albumin (3.5-5.7) g/dL Globulin (2.4-3.5) g/dL Albumin/Globulin Ratio (1.1-2.2) Ur Specimen Adequacy See below A Urine Color Dark Yellow (Yellow) Urine Clarity Turbid A (Clear) Urine pH 5.0 (5.0-8.0) pH Units Ur Specific Innis 1.025 (1.010-1.025) Urine Protein 100 H (Neg-Trace) mg/dL Urine Glucose (UA) Normal (Normal) mg/dL Urine Ketones Negative (Negative) mg/dL Urine Blood Large H (Negative) Urine Nitrite Negative (Negative) Urine Bilirubin Moderate H (Negative) Urine Urobilinogen Normal (Normal) mg/dL Ur Leukocyte Esterase Moderate H (Negative) Urine Microscopic RBC 15-30 H (0-3) per hpf Urine Microscopic WBC 50-100 H (0-3) per hpf Urine Bacteria Many H (None-Few) per hpf Hyaline Casts Few (None-Few) per lpf Urine Yeast Few H (None Seen) per hpf Ur Culture Indicated? YES A (NO) - Radiology Data Radiology results reviewed: Yes I reviewed the patient's radiology results. Abdomen/Pelvis CT 02/26/19 00:00 IMPRESSION: Pancolitis, probably pseudomembranous colitis. Liver nodularity raises the possibility of cirrhosis. D/ / Franck Antonio MD / Franck Antonio MD Interpreting Provider: Franck Antonio MD Chest X-Ray 02/26/19 00:01 IMPRESSION: Bibasilar atelectasis and/or pneumonia. D/ / Franck Antonio MD / Franck Antonio MD Interpreting Provider: Franck Antonio MD - EKG Data EKG #1 EKG attestation: Yes I reviewed and interpreted this EKG. EKG results narrative: EKG shows a normal sinus rhythm with ventricular rate of 87. No significant ST segment elevation or depression. No arrhythmia or ectopy. No significant mendes ge from prior EKG dated 02/19/2019. Critical Care Time Critical Care Time: Yes Total Critical Care Time: 60 Attestation: Critical care performed: Time is exclusive of separately billable procedures. Time includes: direct patient care, patient reassessment, coordination of patient care, interpretation of data (laboratory data, radiology data, and respiratory data), review of patient's medical records, medical consultation and documentation of patient care. Procedures included in critical care time: Procedures excluded from critical care time: Attestation Statement - Attestation Attestation: I, Jean Vee MD, personally evaluated this patient and discussed their management with the resident physician. I reviewed the resident's note and agree with the documented findings, medical decision making, and plan of care. I reviewed the residents documentation and agree with the residents assessment and plan of care. I have personally had face to face time with the patient. I personally supervised and was present for the martinez/critical portions of the following procedures completed by the resident: EKG interpretation. 68-year-old male presents to the emergency department from a local [facility] with a complaint of right leg pain. EMS reports that they were called to the [facility] because patient was lethargic and hypoxic. Here in the emergency Department patient is very drowsy but responds to verbal stimuli and answers questions appropriately. He denies chest pain or shortness of breath. He denies abdominal pain. He just states that he has pain in the right leg. He states the entire leg hurts. No injury. On examination patient is a well-developed morbidly obese male in no acute distress. He is very drowsy but responds to verbal stimuli appropriately. He is oriented to person and place. No cyanosis or diaphoresis. Breath sounds are decreased but equal bilaterally with diffuse coarse bilateral upper airway congestion and rhonchi. No wheezes noted.. Heart regular rate and rhythm. Abdomen soft with normal bowel sounds. There is moderate mid abdominal tenderness and mild diffuse tenderness. No guarding or rebound tenderness. There is no asymmetric swelling of the right lower extremity. There is mild diffuse tenderness. Patient has decreased capillary refill in his feet bilaterally at about 5 seconds. Both feet are cool to touch but again symmetrical. He does have a palpable DP pulse in the right foot. EKG shows a normal sinus rhythm with ventricular rate of 87. No significant ST segment elevation or depression. No arrhythmia or ectopy. No significant change from prior EKG dated 02/19/2019. CT of the abdomen and pelvis without contrast shows pancolitis, probable pseudomembranous colitis. Chest x-ray showed bibasilar atelectasis or pneumonia however CT scan just showed some left basilar scarring. Labs reviewed. WBC 29 potassium 5.4. Creatinine 2.75. Lactic acid 1.7. Troponin 0.10. D-dimer 2199. Unable to obtain a CTA of the lungs due to patient's kidney function. However with the elevated troponin we will go ahead and start patient on heparin. Antibiotics initiated. The hospitalist, Dr. Caldera, was consulted and accepted admission of the patient.
[2019-02-26 02:06] LABS: Bacteria,Urine Many per hpf (None-Few); Hyaline Casts,Urine Few per lpf (None-Few); RBC,Urine 15-30 per hpf (0-3); WBC,Urine 50-100 per hpf (0-3); Yeast,Urine Few per hpf (None Seen)
[2019-02-26] MEDS: 0.9 % Sodium Chloride 1,000 ML IVC SCH ×3 (02:53→23:28)
[2019-02-26] MEDS ORDERED: Naloxone 0.4 MG/ML INJ IVP PRN (04:00)
[2019-02-26] MEDS: Ketorolac 15 MG/ML VIAL IVP PRN ×2 (04:19→10:27)
--- NOTE | 2019-02-26 04:23 | Internal Med History&Physical ---
Date of Encounter: 02/26/19 Time of Encounter: 04:05 Internal Medicine - H&P: HPI Chief complaint: AMS/SOB History of present illness: Mr. Wright is a 68 year old male past medical history of pulmonary embolism, COPD, CHF, diabetes, recurrent pneumonia, and anoxic brain injury, recent history of myocardial infarction, obesity hypoventilation syndrome and chronic indwelling Harper catheter presenting for one day history of altered mental status and shortness of breath. Of note patient was recently discharged 2 days ago after treatment for acute hypoxic respiratory failure due to COPD/CHF exacerbation. Patient was at his nursing facility for rehabilitation due to m yocardial infarction occurred last month. Patient states he has had right lower extremity pain in the entirety of the limb the past 2 days, however staff noticed that he was not us responding appropriately today developed increased fatigue, noticeable dyspnea and called EMS. Patient was found to be hypoxic by EMS in the 70s to 80% range on his home level of oxygen of 2 L which quickly corrected into the 90s when titrated up. On arrival patient was afebrile, mildly tachycardic with a heart rate of 117 but otherwise hemodynamically stable. Initial laboratory workup notable for a significant leukocytosis of 29.1 with 6% bands; mild hypokalemia of 5.4; elevated d-dimer. Creatinine was noted to be elevated above baseline. Initial lactic acid 1.7. Troponin noted to be elevated at 0.10. ABG was obtained which showed pH 7.37, PCO2 34, PO2 89. EKG showed sinus rhythm with no significant change from previous EKG or ST changes. Chest x-ray showed bibasilar atelectasis and/or pneumonia.. CT scan of the abdomen and pelvis demonstrated pancolitis likely pseudomembranous colitis. Patient was given calcium gluconate for mild hyperkalemia and hypocalcemia. Heparin drip was initiated given patient's elevated d-dimer given history of PE and elevated troponin. GI panel was obtained and patient was started on oral vancomycin and IV Flagyl due to concern for C. difficile colitis. On my assessment patient appeared to be alert oriented 3 however was somewhat lethargic. Vitals currently stable. Per nurse, has had multiple loose watery stools since arrival to the floor suspicious for C. difficile colitis. Past Med Surg Social Fam HX - Past Medical History Medical history: cardiomyopathy, CHF, COPD, diabetes, hyperlipidemia, hypertension Psychiatric history: depression - Past Surgical History Surgical History: pacemaker/AICD, other Additional surgical history: defibrilator - Social History Smoking Status: Former smoker Smokeless Tobacco Status: No Alcohol use: none Drug use: none - Family History Mother Living Status: Hx Family Cancer: Yes (brain tumor) Father Living Status: Hx Family Respiratory Disorders: Yes (COPD) Hx Family Endocrine Disorder: Yes (DM) Internal Medicine - H&P: Meds Carvedilol 12.5 mg PO BID 02/19/19 [History] Fexofenadine HCl [Allergy Relief] 180 mg PO DAILY PRN 02/19/19 [History] Fluticasone/Umeclidin/Vilanter [Trelegy Ellipta 100-62.5-25] 1 puff IH DAILY 02/19/19 [History] Furosemide [Lasix] 40 mg PO BID 02/19/19 [History] Insulin NPH, HUMAN [HumuLIN N] 30 unit SQ HS 02/19/19 [History] Insulin Regular Human [Humulin R] 0 unit SQ TIDWM 02/19/19 [History] Isosorbide DInitrate [Isosorbide Dinitrate] 5 mg PO TID 02/19/19 [History] Lidocaine Patch [Lidoderm 5% patch] 1 patch TP DAILY PRN 02/19/19 [History] Lovastatin 10 mg PO DAILY 02/19/19 [History] Sertraline [Zoloft] 100 mg PO DAILY 02/19/19 [History] Tamsulosin [Flomax] 0.4 mg PO HS 02/19/19 [History] Tiotropium [Spiriva] 18 mcg IH DAILY 02/19/19 [History] Trazodone HCl 100 mg PO HS 02/19/19 [History] rOPINIRole [Requip] 0.25 mg PO HS 02/19/19 [History] Acetaminophen [Tylenol 650mg SUPP] 650 mg RC Q4H PRN 02/20/19 [History] Acetaminophen [Tylenol] 650 mg PO Q4H PRN 02/20/19 [History] Albuterol Sulfate [Ventolin Hfa] 2 puff IH Q4H PRN 02/20/19 [History] Aspirin 81 mg PO DAILY 02/20/19 [History] Bisacodyl [Gentle Laxative] 10 mg RC DAILY PRN 02/20/19 [History] Carvedilol 3.125 mg PO QAM 02/20/19 [History] Chloraseptic [place] [Chloraseptic] 1 spray MM Q2H PRN 02/20/19 [History] Fluticasone Propionate Nasal [Flonase] 2 spray NS DAILY 02/20/19 [History] Glucagon,Human Recombinant [Glucagon Emergency Kit] 1 mg IJ AD PRN 02/20/19 [History] Guaifenesin [Diabetic Tussin Ex] 200 mg PO Q4H PRN 02/20/19 [History] Insulin NPH, HUMAN [HumuLIN N] 50 unit SQ QAM 02/20/19 [History] Ipratropium/Albuterol Sulfate [Iprat-Albut 0.5-3(2.5) mg/3 ml] 3 ml IH BID PRN 02/20/19 [History] Loperamide HCl [Anti-Diarrheal] 2 mg PO Q4H PRN MDD 8MG/24HR 02/20/19 [History] Mintox Suspension 30 ml PO BID PRN 02/20/19 [History] Neomycin [place]/Bacitrac Zn/Poly [Triple Antibiotic Ointment] 1 appl TP DAILY [History] Neomycin [place]/Bacitrac Zn/Poly [Triple Antibiotic Ointment] 1 appl TP DAILY PRN 02/20/19 [History] Saline Nasal [place] [[place] Nasal [place]] 1 spray NS DAILY PRN 02/20/19 [History] Gabapentin [Neurontin] 300 mg PO TID #30 capsule 02/23/19 [Rx] Tramadol HCl [Ultram] 50 mg PO Q4H PRN 5 Days #20 tablet 02/23/19 [Rx] predniSONE [PredniSONE] 10 mg PO DAILY #20 tablet 02/23/19 [Rx] Allergy/AdvReac Type Severity Reaction Status Date / Time No Known Drug Allergies Allergy See Verified 02/20/19 15:10 Comments All Systems PM: A 10-system review of systems was performed and is negative for pertinent findings except as documented above in the HPI. - Constitutional Constitutional: no chills, no fever(s), no night sweats - EENT Eyes: no change in vision, no discharge, no pain, no photophobia Ears: no ear discharge, no ear pain, no tinnitus Nose, mouth and throat: no dysphagia, no nasal discharge, no neck pain, no sore throat - Cardiovascular Cardiovascular ROS IM: no chest pain, no diaphoresis, no dyspnea, no lightheadedness, no palpitations, no syncope - Respiratory Respiratory: no cough, no dyspnea, no wheezing, no excessive phlegm production - Gastrointestinal Gastrointestinal: no abdominal pain, no diarrhea, no hematemesis, no hematochezia, no melena, no nausea, no vomiting - Musculoskeletal Musculoskeletal ROS IM: no numbness, no tingling - Integumentary Integumentary IM: no rash, no unusual bruising - Neurological Neurological ROS: no confusion, no convulsions, no focal weakness, no numbness, no tingling, no tremor(s) - Hematologic/Lymphatic Hematologic/Lymphatic: no easy bruising - Constitutional Vitals: Temp Pulse Resp BP Pulse Ox 98.8 F 120 24 126/46 96 02/25/19 23:48 02/26/19 02:31 02/26/19 02:31 02/26/19 02:31 02/26/19 02:31 Exam: General: Alert and oriented 3 Skin:Normal color, no rash, no lesions. HEENT:EOM, pupils equal, round and reactive. Cardiovascular:Normal S1 & S2, no rubs, murmurs or gallops. No JVD. Pulse regular. Lungs:Normal breath sounds, no wheezes or crackles. Abdomen:Soft, non-tender, no rigidity. Extremities:No deformity, no edema or tenderness, no joint swelling or clubbing. Neurological: Lethargic. No focal findings. Pulses:Carotid and radial pulses normal +2. Rest of the physical exam is non contributory Internal Med - H&P Results - Labs CBC & Chem 7: 02/26/19 14:24 02/26/19 07:18 Labs: Short CBC 02/25/19 Range/Units 23:49 WBC 29.1 H D (4.3-11.1) K/mcL Hgb 13.7 (12.9-16.9) g/dL Hct 44.6 (37.5-50.1) % Plt Count 235 (140-400) K/mcL Neutrophils # 22.1 H (1.6-8.9) K/mcL BMP 02/25/19 23:49 Sodium 132 L Potassium 5.4 H Chloride 98 Carbon Dioxide 20 L BUN 88 H Creatinine 2.75 H Glucose 156 H Calcium 8.5 L Cardiac Enzymes 02/25/19 02/26/19 Range/Units 23:49 03:20 Troponin I 0.10 H* 0.07 H* (< 0.04) ng/mL Liver Function 02/25/19 Range/Units 23:49 Total Bilirubin 0.6 (0.3-1.0) mg/dL Direct Bilirubin 0.1 (0.0-0.2) mg/dL AST 15 (13-39) Units/L ALT 14 (7-52) Units/L Alkaline Phosphatase 70 (34-104) Units/L Albumin 3.1 L (3.5-5.7) g/dL Urine 02/26/19 Range/Units 01:44 Urine Color Dark Yellow (Yellow) Urine Clarity Turbid A (Clear) Urine pH 5.0 (5.0-8.0) pH Units Ur Specific [place] 1.025 (1.010-1.025) Urine Protein 100 H (Neg-Trace) mg/dL Urine Glucose (UA) Normal (Normal) mg/dL - ABG Interpretation ABG results: 02/26/19 01:26 ABG pH 7.37 ABG pCO2 34 L ABG pO2 89 ABG HCO3 20 L ABG Total CO2 21 ABG O2 Saturation 97 ABG Base Excess -4 L - Impressions ITS Impressions Abdomen/Pelvis CT 02/26/19 00:00 IMPRESSION: Pancolitis, probably pseudomembranous colitis. Liver nodularity raises the possibility of cirrhosis. D/ / Franck Antonio MD / Franck Antonio MD Interpreting Provider: Franck Antonio MD Chest X-Ray 02/26/19 00:01 IMPRESSION: Bibasilar atelectasis and/or pneumonia. D/ / Franck Antonio MD / Franck Antonio MD Interpreting Provider: Franck Antonio MD - Assessment and Plan (1) Acute and chronic respiratory failure Current Visit: No Status: Acute Assessment and plan: Patient found to be hypoxemic with O2 saturation of 70-80% on his home oxygen of 2 L. Patient's O2 is saturation responded after titrating his oxygen up to 6 L. Currently on 4 L saturating in the mid 90s. Chest x-ray shows bibasilar atelectasis and/or pneumonia which appears improved from previous chest x-ray. Lungs were clear to auscultation with faint expiratory wheezing. Blood gas showed pH of 7.37, PCO2 34 and PaO2 of 89 assessed on 6 L nasal cannula. Etiology of patient's hypoxia unclear. Patient has underlying pulmonary hypert ension, CAMILLE/OHS, COPD and CHF. Patient however does not appear to be fluid overloaded. Low suspicion for ACS given absence of chest pain and significant EKG findings despite elevated troponin which I suspect is secondary to sepsis. No evidence of fever or cough. He does have faint expiratory wheezing. Has previous history of pulmonary embolism. -Continue O2 support as needed -We will schedule patient for duonebs -Consider continuing heparin for possible PE. Patient has been endorsing right lower extremity pain. On examination there is no evidence of edema or swelling. Consider obtaining venous Doppler studies to rule out DVT. Qualifiers: Respiratory failure complication: hypoxia Qualified Code(s): J96.21 - Acute and chronic respiratory failure with hypoxia (2) Colitis Current Visit: Yes Status: Acute Assessment and plan: CT scan of the abdomen showing pancolitis consistent with pseudomembranous colitis. This is consistent with patient's significant leukocytosis with bands and recent hospitalization. Additionally patient has had large amounts of loose stools since arrival to the floor. -Continue fluid support -Continue IV Flagyl and oral vancomycin -Follow GI panel -Consider infectious disease consult (3) JENN (acute kidney injury) Current Visit: No Status: Acute Assessment and plan: Acute on chronic kidney injury. Creatinine 2.75. Baseline creatinine appears to be around 1.8. Likely prerenal in the setting of sepsis. -Continue maintenance fluids. -Strict I's and O's given patient's CHF history -Monitor kidney function. (4) Delirium due to general medical condition Current Visit: No Status: Acute Assessment and plan: Acute encephalopathy likely secondary to hypoxia and sepsis. Mentation appears to be improving though patient still remains at times confused and lethargic. -Continue O2 support and treatment of underlying disease. (5) Elevated troponin Current Visit: No Status: Acute Assessment and plan: Patient does not have a elevated troponin of 0.10 in the absence of any reports of chest pain or EKG findings concerning for ischemia. Suspect demand in the setting of current septic picture with possible C. difficile colitis. Repeat troponin now 0.7. -Telemetry -We will trend troponin -Currently on heparin drip. Consider discontinuing. (6) Hyperkalemia Current Visit: No Status: Acute Assessment and plan: Potassium of 5.4. Patient received calcium gluconate in the ED. -Repeat potassium and monitor. (7) Hypocalcemia Current Visit: No Status: Acute (8) COPD (chronic obstructive pulmonary disease) Current Visit: No Status: Chronic Assessment and plan: Mild faint expiratory wheezing on lung examination. -Continue by mouth prednisone -We will start patient on scheduled DuoNeb's Qualifiers: COPD type: unspecified COPD Qualified Code(s): J44.9 - Chronic obstructive pulmonary disease, unspecified (9) Diabetes Current Visit: No Status: Chronic Assessment and plan: Blood glucose checks. Sliding scale insulin plus basal. 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 Found to have evidence of colitis concerning for C. difficile. Initial lactic acid of 1.7. Repeat 2.1. Patient currently on fluids at 1 25 mL an hour. Blood pressure stable and heart rate has come down. -Continue maintenance fluids -Continue antibiotics -Follow-up blood cultures Qualifiers: Sepsis type: sepsis due to unspecified organism Qualified Code(s): A41.9 - Sepsis, unspecified organism; R65.20 - Severe sepsis without septic shock (11) CHF (congestive heart failure) Current Visit: No Status: Acute Assessment and plan: History of heart failure with preserved ejection fraction. EF 50%. Low suspicion for acute exacerbation at this time. -Monitor I's and O's. Daily weights. -Given sepsis and concern for C. difficile. Consider holding Lasix for now. Qualifiers: Heart failure type: combined systolic and diastolic Heart failure chronicity: acute on chronic Qualified Code(s): I50.43 - Acute on chronic combined systolic (congestive) and diastolic (congestive) heart failure (12) DVT prophylaxis Current Visit: No Status: Acute Assessment and plan: Currently on heparin drip - Time Spent With Patient Total time spent is greater than 50% in coordination of care (as documented) at patient's floor/unit and/or counseling patient:
[2019-02-26] MEDS ORDERED: Ipratropium/Albuterol Neb 3 ML IH PRN (04:32)
[2019-02-26] MEDS ORDERED: Neosporin OINT 15 GM TUBE TP PRN (06:27)
[2019-02-26] MEDS ORDERED: Dextrose Gel 15 GM/37.5 ML TUBE PO PRN ×2 (06:36)
[2019-02-26] MEDS ORDERED: *HR* Dextrose 50 % in Water (Syg) 50 ML SYRINGE IVP PRN (06:36)
[2019-02-26] MEDS ORDERED: D5% in Water 1,000 ML IVC PRN (06:36)
[2019-02-26] MEDS: Ipratropium/Albuterol Neb 3 ML IH SCH ×5 (08:20→23:15)
[2019-02-26 08:40] LABS: Albumin 3.1 g/dL (3.5-5.7); Bilirubin,Total 0.6 mg/dL (0.3-1.0); Calcium 8.7 mg/dL (8.6-10.3); Globulin 3.1 g/dL (2.4-3.5); Potassium 5.5 mEq/L (3.5-5.1); Total Protein 6.2 g/dL (6.4-8.9)
[2019-02-26] MEDS: Fluticasone Propionate Nasal 50 MCG/SPRAY BOTTLE NS SCH (08:56)
[2019-02-26] MEDS: predniSONE 20 MG TABLET PO SCH (08:56)
[2019-02-26] MEDS: Insulin LISPRO 300 UNITS/3 ML VIAL SQ SCH ×3 (08:57→16:48)
[2019-02-26] MEDS: MetroNIDAZOLE 500 MG/100 ML 500 MG/100 ML BAG IVPB SCH ×2 (08:58→16:41)
[2019-02-26] MEDS ORDERED: NON-FORMULARY MEDICATION 1 EACH EACH (Carvedilol 12.5 MG) PO SCH (09:00)
[2019-02-26] MEDS: Neosporin OINT 15 GM TUBE TP SCH (09:03)
[2019-02-26] MEDS: Aspirin 81 MG TAB.CHEW PO SCH (09:03)
[2019-02-26] MEDS: Furosemide 40 MG TABLET PO SCH ×2 (09:15→10:24)
[2019-02-26] MEDS: Insulin DETEMIR 100 UNIT/ML X5UNITS SQ SCH (10:23)
[2019-02-26 14:35] LABS: Hematocrit 45.4 % (37.5-50.1); Mean Corpuscular HGB Conc 30.8 g/dL (31.6-35.5); Mean Corpuscular Hemoglobin 26.4 pg (28.0-33.3); Mean Corpuscular Volume 85.5 fL (83.0-100.0); Mean Platelet Volume 12.3 fL (9.4-12.4); Nucleated Red Blood Cells 0.4 /100 WBC (0); Platelet Count 247 K/mcL (140-400); Red Blood Count 5.31 M/mcL (4.19-5.50); Red Cell Distribution Width 15.9 % (11.5-14.5)
[2019-02-26 14:43] LABS: White Blood Count 23.8 K/mcL (4.3-11.1)
[2019-02-26 15:06] LABS: Lymphocytes # 0.7 K/mcL (0.6-4.6); Monocytes # 1.2 K/mcL (0.0-1.3); Neutrophils # 21.4 K/mcL (1.6-8.9); Platelet Estimate Normal (Normal)
[2019-02-26 15:07] LABS: Polychromasia 1+ (Not Present)
--- NOTE | 2019-02-26 15:27 | Event Note ---
Date of Encounter: 02/26/19 Time of Encounter: 15:24 Pt was seen and examined at bedside. Patient appears somnolent however wakes up on command.. Patient presents to the hospital yesterday with complaint of altered mental status and difficulty breathing. Patient was also complaining of right-sided lower extremity pain. Patient was saturating around 70-80% on 3 L and he was placed on 6 L at emergency room and he went up to about 92%. Initial workup including chest x-ray showed bilateral atelectasis and,/or pneumonia patient's CT scan of abdomen and pelvis showed pancolitis. Patient was placed on Flagyl IV and po VANCOMYCIN for possible C. difficile colitis. Surgery is on consult awaiting surgical input. The patient has a history of recurrent pulmonary embolism. Patient was placed on heparin drip for the suspected pulmonary embolism. CTA PE protocol was not done due to acute kidney injury. Patient's troponin was elevated at 0.10 and then it was gradually tapered down to 0.07. Patient recent troponin was 0.09. EKG was unremarkable. Patient is already on heparin drip for possible PE. Cardiology consulted. Awaiting cardiology input. Appreciate cardiology input. During the day today, ultrasound of bilateral lower extremity was ordered due to right-sided lower x-ray pain. Ultrasound of bilateral lower extremity will acute bilateral DVT. Patient is currently on heparin drip for suspected PE. We will hold off on getting CTA PE protocol at this time due to acute kidney injury.
--- NOTE | 2019-02-26 17:57 | AcuteCare Surgery Consult Note ---
Date of Encounter: 02/26/19 Time of Encounter: 17:50 Assessment and Plan (1) Colitis Current Visit: Yes Status: Acute 68M with multiple comorbidities who a pancolitis as evidenced on CT with associated leukocytosis, bandemia, acute kidney injury, what appears to be altered mental status and respiratory insufficiency; IVF resuscitation - recommend bolus to UOP of 0.5cc/kg/hr; patient has ocasio catheter pulm: oxygen requirements per primary team; may require intubation if unable to get control respiratory insufficiency; monitor closely; concern for possible PE; consider VQ scan in light of JENN cardiac: likely with demand ischemia with troponins at the level they are; EF ~50%; heart can handle fluids so recommend IVF resuscitation in light of sepsis GI: colitis - GI prophylaxis; NPO; IV abx: recommend adding zosyn; test for c. diff as well as other infectious causes : trend cr in light of acute on chronic JENN ID: ADD ZOSYN; trend wbc heme: hep gtt in light of possible PE; FEN: resuscitative fluids until good UOP; replace electrolytes (K@4, Mg@2, PO4@3); NPO; consider TPN if expecting prolonged NPo status Endo: glucose - keep < 150 Dispo: recommend close follow in step down; Summary: IVF and IV abx for current sepsis; trend lactic acid; trend UOP; no acute surgery at present, but will continue with serial exams; History of Present Illness Consult date: 02/26/19 Reason for consult: other (colitis) History of present illness: 68M PMH significant for DVT/pulmonary embolism (currently on heparin gtt), hypoventilation syndrome, COPD, CHF, diabetes, recent history of myocardial and currently undergoing cardiac rehab, obesity who presents with altered mental status and shortness of breath. In addition the patient was recently discharged related to COPD/CHF exacerbation. The patient is a poor historian so history is from the medical record and the nurse. The patient is difficult to arouse, but was reported that he was able to eat his breakfast this morning. His abdomen is soft, but occasionally the patient will say that his abdomen does hurt. He is not peritoneal nor does he feel distended (but difficult to tell because he has an obese abdomen). He has a leukocytosis that is down trending, with bandemia (20%), normal lactate, but with acute on chronic kidney injury; A CT scan was obtained which demonstrated pancolitis, the heaviest inflammation appears to be in the sigmoid colon. General surgery was consulted for management recommendations. Past Med Surg Social Fam HX - Past Medical History Medical history: cardiomyopathy, CHF, COPD, diabetes, hyperlipidemia, hypertension Psychiatric history: depression - Past Surgical History Surgical History: pacemaker/AICD, other Additional surgical history: defibrilator - Social History Smoking Status: Former smoker Smokeless Tobacco Status: No Alcohol use: none Drug use: none - Family History Mother Living Status: Hx Family Cancer: Yes (brain tumor) Father Living Status: Hx Family Respiratory Disorders: Yes (COPD) Hx Family Endocrine Disorder: Yes (DM) Medications and Allergies Carvedilol 12.5 mg PO BID 02/19/19 [History] Fexofenadine HCl [Allergy Relief] 180 mg PO DAILY PRN 02/19/19 [History] Fluticasone/Umeclidin/Vilanter [Trelegy Ellipta 100-62.5-25] 1 puff IH DAILY 02/19/19 [History] Furosemide [Lasix] 40 mg PO BID 02/19/19 [History] Insulin NPH, HUMAN [HumuLIN N] 30 unit SQ HS 02/19/19 [History] Insulin Regular Human [Humulin R] 0 unit SQ TIDWM 02/19/19 [History] Isosorbide DInitrate [Isosorbide Dinitrate] 5 mg PO TID 02/19/19 [History] Lidocaine Patch [Lidoderm 5% patch] 1 patch TP DAILY PRN 02/19/19 [History] Lovastatin 10 mg PO DAILY 02/19/19 [History] Sertraline [Zoloft] 100 mg PO DAILY 02/19/19 [History] Tamsulosin [Flomax] 0.4 mg PO HS 02/19/19 [History] Tiotropium [Spiriva] 18 mcg IH DAILY 02/19/19 [History] Trazodone HCl 100 mg PO HS 02/19/19 [History] rOPINIRole [Requip] 0.25 mg PO HS 02/19/19 [History] Acetaminophen [Tylenol 650mg SUPP] 650 mg RC Q4H PRN 02/20/19 [History] Acetaminophen [Tylenol] 650 mg PO Q4H PRN 02/20/19 [History] Albuterol Sulfate [Ventolin Hfa] 2 puff IH Q4H PRN 02/20/19 [History] Aspirin 81 mg PO DAILY 02/20/19 [History] Bisacodyl [Gentle Laxative] 10 mg RC DAILY PRN 02/20/19 [History] Carvedilol 3.125 mg PO QAM 02/20/19 [History] Chloraseptic [place] [Chloraseptic] 1 spray MM Q2H PRN 02/20/19 [History] Fluticasone Propionate Nasal [Flonase] 2 spray NS DAILY 02/20/19 [History] Glucagon,Human Recombinant [Glucagon Emergency Kit] 1 mg IJ AD PRN 02/20/19 [History] Guaifenesin [Diabetic Tussin Ex] 200 mg PO Q4H PRN 02/20/19 [History] Insulin NPH, HUMAN [HumuLIN N] 50 unit SQ QAM 02/20/19 [History] Ipratropium/Albuterol Sulfate [Iprat-Albut 0.5-3(2.5) mg/3 ml] 3 ml IH BID PRN 02/20/19 [History] Loperamide HCl [Anti-Diarrheal] 2 mg PO Q4H PRN MDD 8MG/24HR 02/20/19 [History] Mintox Suspension 30 ml PO BID PRN 02/20/19 [History] Neomycin [place]/Bacitrac Zn/Poly [Triple Antibiotic Ointment] 1 appl TP DAILY [History] Neomycin [place]/Bacitrac Zn/Poly [Triple Antibiotic Ointment] 1 appl TP DAILY PRN 02/20/19 [History] Saline Nasal [place] [[place] Nasal [place]] 1 spray NS DAILY PRN 02/20/19 [History] Gabapentin [Neurontin] 300 mg PO TID #30 capsule 02/23/19 [Rx] Tramadol HCl [Ultram] 50 mg PO Q4H PRN 5 Days #20 tablet 02/23/19 [Rx] predniSONE [PredniSONE] 10 mg PO DAILY #20 tablet 02/23/19 [Rx] Allergy/AdvReac Type Severity Reaction Status Date / Time No Known Drug Allergies Allergy See Verified 02/20/19 15:10 Comments Review of Systems All systems PM: 12 point ROS negative besides HPI findings General Surgery Exam Initial Vital Signs Temp Pulse Resp BP Pulse Ox 98.8 F 117 24 111/82 94 02/25/19 23:48 02/25/19 23:48 02/25/19 23:48 02/25/19 23:48 02/25/19 23:48 - General physical appearance no distress - Respiratory normal expansion, normal respiratory effort - Cardiovascular Cardiovascular exam: Present: RRR - Abdomen Abdomen general surgery: Present: soft, tender (non peritoneal; ) - Integumentary Integumentary general surgery: Present: warm and dry, no abnormal pigmentation - Neurologic Present: CN 2-12 grossly intact - Musculoskeletal Present: normal posture - Psychiatric Psychiatric general surgery: Present: A&Ox3 Exam Initial Vital Signs Temp Pulse Resp BP Pulse Ox 98.8 F 117 24 111/82 94 02/25/19 23:48 02/25/19 23:48 02/25/19 23:48 02/25/19 23:48 02/25/19 23:48 Results - Labs 02/26/19 14:24 02/26/19 07:18 Abnormal lab results WBC 23.8 K/mcL (4.3-11.1) H 02/26/19 14:24 MCH 26.4 pg (28.0-33.3) L 02/26/19 14:24 MCHC 30.8 g/dL (31.6-35.5) L 02/26/19 14:24 RDW 15.9 % (11.5-14.5) H 02/26/19 14:24 Band Neutrophils % 20.0 % (0-4) H 02/26/19 14:24 Metamyelocytes % 1.0 % (0) H 02/26/19 14:24 Myelocytes % 1.0 % (0) H 02/26/19 14:24 Neutrophils # 21.4 K/mcL (1.6-8.9) H 02/26/19 14:24 Monocytes # 4.1 K/mcL (0.0-1.3) H 02/25/19 23:49 Nucleated RBCs/100 WBC 0.4 /100 WBC (0) H 02/26/19 14:24 Reactive Lymphocytes Present (Not Present) A 02/25/19 23:49 Polychromasia 1+ (Not Present) A 02/26/19 14:24 PT 12.6 Seconds (9.4-12.1) H 02/25/19 23:49 D-Dimer 2199 ng/mLFEU (0-500) H 02/25/19 23:49 Heparin Anti-Xa, Unfract 0.00 IU/mL (0.30-0.70) L 02/25/19 23:49 ABG pCO2 34 mmHg (35-45) L 02/26/19 01:26 ABG HCO3 20 mEq/L (21-27) L 02/26/19 01:26 ABG Base Excess -4 mEq/L (-2 to 3) L 02/26/19 01:26 Sodium 133 mEq/L (136-145) L 02/26/19 07:18 Potassium 5.5 mEq/L (3.5-5.1) H 02/26/19 07:18 Chloride 97 mEq/L (98-107) L 02/26/19 07:18 Carbon Dioxide 16 mEq/L (23-29) L 02/26/19 07:18 BUN 88 mg/dL (8-23) H 02/26/19 07:18 Creatinine 3.11 mg/dL (0.70-1.30) H 02/26/19 07:18 Est GFR ( Amer) 24 (> 60) L 02/26/19 07:18 Est GFR (Non-Af Amer) 20 (> 60) L 02/26/19 07:18 BUN/Creatinine Ratio 28 (6-26) H 02/26/19 07:18 Glucose 143 mg/dL (70-105) H 02/26/19 07:18 POC Glucose 226 mg/dL (70-99) H 02/26/19 11:46 Calculated Osmolality 305 (280-300) H 02/26/19 07:18 Calcium 8.5 mg/dL (8.6-10.3) L 02/25/19 23:49 Troponin I 0.09 ng/mL (< 0.04) H* 02/26/19 14:24 B-Natriuretic Peptide 244 pg/mL (Less than 100) H 02/25/19 23:49 Serum Total Protein 6.2 g/dL (6.4-8.9) L 02/26/19 07:18 Albumin 3.1 g/dL (3.5-5.7) L 02/26/19 07:18 Albumin/Globulin Ratio 1.0 (1.1-2.2) L 02/26/19 07:18 Ur Specimen Adequacy See below A 02/26/19 01:44 Urine Clarity Turbid (Clear) A 02/26/19 01:44 Urine Protein 100 mg/dL (Neg-Trace) H 02/26/19 01:44 Urine Blood Large (Negative) H 02/26/19 01:44 Urine Bilirubin Moderate (Negative) H 02/26/19 01:44 Ur Leukocyte Esterase Moderate (Negative) H 02/26/19 01:44 Urine Microscopic RBC 15-30 per hpf (0-3) H 02/26/19 01:44 Urine Microscopic WBC 50-100 per hpf (0-3) H 02/26/19 01:44 Urine Bacteria Many per hpf (None-Few) H 02/26/19 01:44 Urine Yeast Few per hpf (None Seen) H 02/26/19 01:44 Ur Culture Indicated? YES (NO) A 02/26/19 01:44 Diabetes panel 02/25/19 02/26/19 Range/Units 23:49 07:18 Sodium 132 L 133 L (136-145) mEq/L Potassium 5.4 H 5.5 H (3.5-5.1) mEq/L Chloride 98 97 L (98-107) mEq/L Carbon Dioxide 20 L 16 L (23-29) mEq/L BUN 88 H 88 H (8-23) mg/dL Creatinine 2.75 H 3.11 H (0.70-1.30) mg/dL Glucose 156 H 143 H (70-105) mg/dL Calcium 8.5 L 8.7 (8.6-10.3) mg/dL AST 15 18 (13-39) Units/L ALT 14 12 (7-52) Units/L Alkaline Phosphatase 70 68 (34-104) Units/L Albumin 3.1 L 3.1 L (3.5-5.7) g/dL Calcium panel 02/25/19 02/26/19 Range/Units 23:49 07:18 Calcium 8.5 L 8.7 (8.6-10.3) mg/dL Albumin 3.1 L 3.1 L (3.5-5.7) g/dL Pituitary panel 02/25/19 02/26/19 Range/Units 23:49 07:18 Sodium 132 L 133 L (136-145) mEq/L Potassium 5.4 H 5.5 H (3.5-5.1) mEq/L Chloride 98 97 L (98-107) mEq/L Carbon Dioxide 20 L 16 L (23-29) mEq/L BUN 88 H 88 H (8-23) mg/dL Creatinine 2.75 H 3.11 H (0.70-1.30) mg/dL Glucose 156 H 143 H (70-105) mg/dL Calcium 8.5 L 8.7 (8.6-10.3) mg/dL Adrenal panel 02/25/19 02/26/19 Range/Units 23:49 07:18 Sodium 132 L 133 L (136-145) mEq/L Potassium 5.4 H 5.5 H (3.5-5.1) mEq/L Chloride 98 97 L (98-107) mEq/L Carbon Dioxide 20 L 16 L (23-29) mEq/L BUN 88 H 88 H (8-23) mg/dL Creatinine 2.75 H 3.11 H (0.70-1.30) mg/dL Glucose 156 H 143 H (70-105) mg/dL Calcium 8.5 L 8.7 (8.6-10.3) mg/dL Total Bilirubin 0.6 0.6 (0.3-1.0) mg/dL AST 15 18 (13-39) Units/L ALT 14 12 (7-52) Units/L Alkaline Phosphatase 70 68 (34-104) Units/L Albumin 3.1 L 3.1 L (3.5-5.7) g/dL All other labs normal. - Imaging CT scan - abdomen: report reviewed, image reviewed CT scan - pelvis: report reviewed, image reviewed Consult Discharge Plan - Plan Referrals: NONE,PCP [Primary Care Provider] -
[2019-02-26] MEDS: Piperacillin/Tazobactam 3.375 GM in 0.9 % Sodium Chloride Mini Bag 100 ML IVPB SCH (18:51)
[2019-02-26] MEDS ORDERED: Aminoglycoside Consult 1 EACH MC ONE (19:34)
[2019-02-26 20:43] LABS: ABG Base Excess -6 mEq/L (-2 to 3); ABG HCO3 18 mEq/L (21-27); ABG Oxygen Saturation 100 % (95-98); ABG PCO2 33 mmHg (35-45); ABG PH 7.35 pH Units (7.32-7.45); ABG PO2 220 mmHg (85-104); ABG TCO2 19 mEq/L (20-26); Blood Gas PEEP 8 cm H2O
[2019-02-26] MEDS ORDERED: 0.9 % Sodium Chloride 500 ML ONE (22:07)
[2019-02-26] MEDS: rOPINIRole 0.25 MG TABLET PO SCH (22:18)
[2019-02-26] MEDS ORDERED: *HR* Norepinephrine 4 MG/4 ML VIAL IVC ONE (23:03)
[2019-02-26] MEDS ORDERED: D5% in Water 250 ML ONE (23:04)
[2019-02-26] MEDS: Norepinephrine 4 MG in D5% in Water 250 ML IVC SCH (23:10)
--- NOTE | 2019-02-26 23:26 | AcuteCare Surgery Consult Note ---
Date of Encounter: 02/26/19 Time of Encounter: 23:24 Assessment and Plan (1) Colitis Current Visit: Yes Status: Acute Past Med Surg Social Fam HX - Past Medical History Medical history: cardiomyopathy, CHF, COPD, diabetes, hyperlipidemia, hypertension Psychiatric history: depression - Past Surgical History Surgical History: pacemaker/AICD, other Additional surgical history: defibrilator - Social History Smoking Status: Former smoker Smokeless Tobacco Status: No Alcohol use: none Drug use: none - Family History Mother Living Status: Hx Family Cancer: Yes (brain tumor) Father Living Status: Hx Family Respiratory Disorders: Yes (COPD) Hx Family Endocrine Disorder: Yes (DM) Medications and Allergies Carvedilol 12.5 mg PO BID 02/19/19 [History] Fexofenadine HCl [Allergy Relief] 180 mg PO DAILY PRN 02/19/19 [History] Fluticasone/Umeclidin/Vilanter [Trelegy Ellipta 100-62.5-25] 1 puff IH DAILY 02/19/19 [History] Furosemide [Lasix] 40 mg PO BID 02/19/19 [History] Insulin NPH, HUMAN [HumuLIN N] 30 unit SQ HS 02/19/19 [History] Insulin Regular Human [Humulin R] 0 unit SQ TIDWM 02/19/19 [History] Isosorbide DInitrate [Isosorbide Dinitrate] 5 mg PO TID 02/19/19 [History] Lidocaine Patch [Lidoderm 5% patch] 1 patch TP DAILY PRN 02/19/19 [History] Lovastatin 10 mg PO DAILY 02/19/19 [History] Sertraline [Zoloft] 100 mg PO DAILY 02/19/19 [History] Tamsulosin [Flomax] 0.4 mg PO HS 02/19/19 [History] Tiotropium [Spiriva] 18 mcg IH DAILY 02/19/19 [History] Trazodone HCl 100 mg PO HS 02/19/19 [History] rOPINIRole [Requip] 0.25 mg PO HS 02/19/19 [History] Acetaminophen [Tylenol 650mg SUPP] 650 mg RC Q4H PRN 02/20/19 [History] Acetaminophen [Tylenol] 650 mg PO Q4H PRN 02/20/19 [History] Albuterol Sulfate [Ventolin Hfa] 2 puff IH Q4H PRN 02/20/19 [History] Aspirin 81 mg PO DAILY 02/20/19 [History] Bisacodyl [Gentle Laxative] 10 mg RC DAILY PRN 02/20/19 [History] Carvedilol 3.125 mg PO QAM 02/20/19 [History] Chloraseptic [place] [Chloraseptic] 1 spray MM Q2H PRN 02/20/19 [History] Fluticasone Propionate Nasal [Flonase] 2 spray NS DAILY 02/20/19 [History] Glucagon,Human Recombinant [Glucagon Emergency Kit] 1 mg IJ AD PRN 02/20/19 [History] Guaifenesin [Diabetic Tussin Ex] 200 mg PO Q4H PRN 02/20/19 [History] Insulin NPH, HUMAN [HumuLIN N] 50 unit SQ QAM 02/20/19 [History] Ipratropium/Albuterol Sulfate [Iprat-Albut 0.5-3(2.5) mg/3 ml] 3 ml IH BID PRN 02/20/19 [History] Loperamide HCl [Anti-Diarrheal] 2 mg PO Q4H PRN MDD 8MG/24HR 02/20/19 [History] Mintox Suspension 30 ml PO BID PRN 02/20/19 [History] Neomycin [place]/Bacitrac Zn/Poly [Triple Antibiotic Ointment] 1 appl TP DAILY 02/20/19 [History] Neomycin [place]/Bacitrac Zn/Poly [Triple Antibiotic Ointment] 1 appl TP DAILY PRN 02/20/19 [History] Saline Nasal [place] [[place] Nasal [place]] 1 spray NS DAILY PRN 02/20/19 [History] Gabapentin [Neurontin] 300 mg PO TID #30 capsule 02/23/19 [Rx] Tramadol HCl [Ultram] 50 mg PO Q4H PRN 5 Days #20 tablet 02/23/19 [Rx] predniSONE [PredniSONE] 10 mg PO DAILY #20 tablet 02/23/19 [Rx] Allergy/AdvReac Type Severity Reaction Status Date / Time No Known Drug Allergies Allergy See Verified 02/20/19 15:10 Comments Review of Systems All systems PM: The remainder of the systems were reviewed and are negative General Surgery Exam Initial Vital Signs Temp Pulse Resp BP Pulse Ox 98.8 F 117 24 111/82 94 02/25/19 23:48 02/25/19 23:48 02/25/19 23:48 02/25/19 23:48 02/25/19 23:48 Exam Initial Vital Signs Temp Pulse Resp BP Pulse Ox 98.8 F 117 24 111/82 94 02/25/19 23:48 02/25/19 23:48 02/25/19 23:48 02/25/19 23:48 02/25/19 23:48 Results - Labs 02/26/19 14:24 02/26/19 07:18 Abnormal lab results WBC 23.8 K/mcL (4.3-11.1) H 02/26/19 14:24 MCH 26.4 pg (28.0-33.3) L 02/26/19 14:24 MCHC 30.8 g/dL (31.6-35.5) L 02/26/19 14:24 RDW 15.9 % (11.5-14.5) H 02/26/19 14:24 Band Neutrophils % 20.0 % (0-4) H 02/26/19 14:24 Metamyelocytes % 1.0 % (0) H 02/26/19 14:24 Myelocytes % 1.0 % (0) H 02/26/19 14:24 Neutrophils # 21.4 K/mcL (1.6-8.9) H 02/26/19 14:24 Monocytes # 4.1 K/mcL (0.0-1.3) H 02/25/19 23:49 Nucleated RBCs/100 WBC 0.4 /100 WBC (0) H 02/26/19 14:24 Reactive Lymphocytes Present (Not Present) A 02/25/19 23:49 Polychromasia 1+ (Not Present) A 02/26/19 14:24 PT 12.6 Seconds (9.4-12.1) H 02/25/19 23:49 D-Dimer 2199 ng/mLFEU (0-500) H 02/25/19 23:49 Heparin Anti-Xa, Unfract 0.00 IU/mL (0.30-0.70) L 02/25/19 23:49 ABG pCO2 33 mmHg (35-45) L 02/26/19 20:38 ABG pO2 220 mmHg (85-104) H 02/26/19 20:38 ABG HCO3 18 mEq/L (21-27) L 02/26/19 20:38 ABG Total CO2 19 mEq/L (20-26) L 02/26/19 20:38 ABG O2 Saturation 100 % (95-98) H 02/26/19 20:38 ABG Base Excess -6 mEq/L (-2 to 3) L 02/26/19 20:38 Sodium 133 mEq/L (136-145) L 02/26/19 07:18 Potassium 5.5 mEq/L (3.5-5.1) H 02/26/19 07:18 Chloride 97 mEq/L (98-107) L 02/26/19 07:18 Carbon Dioxide 16 mEq/L (23-29) L 02/26/19 07:18 BUN 88 mg/dL (8-23) H 02/26/19 07:18 Creatinine 3.11 mg/dL (0.70-1.30) H 02/26/19 07:18 Est GFR ( Amer) 24 (> 60) L 02/26/19 07:18 Est GFR (Non-Af Amer) 20 (> 60) L 02/26/19 07:18 BUN/Creatinine Ratio 28 (6-26) H 02/26/19 07:18 Glucose 143 mg/dL (70-105) H 02/26/19 07:18 POC Glucose 156 mg/dL (70-99) H 02/26/19 20:22 Calculated Osmolality 305 (280-300) H 02/26/19 07:18 Calcium 8.5 mg/dL (8.6-10.3) L 02/25/19 23:49 Troponin I 0.09 ng/mL (< 0.04) H* 02/26/19 14:24 B-Natriuretic Peptide 244 pg/mL (Less than 100) H 02/25/19 23:49 Serum Total Protein 6.2 g/dL (6.4-8.9) L 02/26/19 07:18 Albumin 3.1 g/dL (3.5-5.7) L 02/26/19 07:18 Albumin/Globulin Ratio 1.0 (1.1-2.2) L 02/26/19 07:18 Ur Specimen Adequacy See below A 02/26/19 01:44 Urine Clarity Turbid (Clear) A 02/26/19 01:44 Urine Protein 100 mg/dL (Neg-Trace) H 02/26/19 01:44 Urine Blood Large (Negative) H 02/26/19 01:44 Urine Bilirubin Moderate (Negative) H 02/26/19 01:44 Ur Leukocyte Esterase Moderate (Negative) H 02/26/19 01:44 Urine Microscopic RBC 15-30 per hpf (0-3) H 02/26/19 01:44 Urine Microscopic WBC 50-100 per hpf (0-3) H 02/26/19 01:44 Urine Bacteria Many per hpf (None-Few) H 02/26/19 01:44 Urine Yeast Few per hpf (None Seen) H 02/26/19 01:44 Ur Culture Indicated? YES (NO) A 02/26/19 01:44 Diabetes panel 02/25/19 02/26/19 Range/Units 23:49 07:18 Sodium 132 L 133 L (136-145) mEq/L Potassium 5.4 H 5.5 H (3.5-5.1) mEq/L Chloride 98 97 L (98-107) mEq/L Carbon Dioxide 20 L 16 L (23-29) mEq/L BUN 88 H 88 H (8-23) mg/dL Creatinine 2.75 H 3.11 H (0.70-1.30) mg/dL Glucose 156 H 143 H (70-105) mg/dL Calcium 8.5 L 8.7 (8.6-10.3) mg/dL AST 15 18 (13-39) Units/L ALT 14 12 (7-52) Units/L Alkaline Phosphatase 70 68 (34-104) Units/L Albumin 3.1 L 3.1 L (3.5-5.7) g/dL Calcium panel 02/25/19 02/26/19 Range/Units 23:49 07:18 Calcium 8.5 L 8.7 (8.6-10.3) mg/dL Albumin 3.1 L 3.1 L (3.5-5.7) g/dL Pituitary panel 02/25/19 02/26/19 Range/Units 23:49 07:18 Sodium 132 L 133 L (136-145) mEq/L Potassium 5.4 H 5.5 H (3.5-5.1) mEq/L Chloride 98 97 L (98-107) mEq/L Carbon Dioxide 20 L 16 L (23-29) mEq/L BUN 88 H 88 H (8-23) mg/dL Creatinine 2.75 H 3.11 H (0.70-1.30) mg/dL Glucose 156 H 143 H (70-105) mg/dL Calcium 8.5 L 8.7 (8.6-10.3) mg/dL Adrenal panel 02/25/19 02/26/19 Range/Units 23:49 07:18 Sodium 132 L 133 L (136-145) mEq/L Potassium 5.4 H 5.5 H (3.5-5.1) mEq/L Chloride 98 97 L (98-107) mEq/L Carbon Dioxide 20 L 16 L (23-29) mEq/L BUN 88 H 88 H (8-23) mg/dL Creatinine 2.75 H 3.11 H (0.70-1.30) mg/dL Glucose 156 H 143 H (70-105) mg/dL Calcium 8.5 L 8.7 (8.6-10.3) mg/dL Total Bilirubin 0.6 0.6 (0.3-1.0) mg/dL AST 15 18 (13-39) Units/L ALT 14 12 (7-52) Units/L Alkaline Phosphatase 70 68 (34-104) Units/L Albumin 3.1 L 3.1 L (3.5-5.7) g/dL All other labs normal. Procedures: General Surgery - Central Line Placement Right SC Consent obtained: verbal consent (emergency as patient was not responsive) Time out performed: Yes Patient placed on monitor/pulse ox: Yes MD prep: mask, gown, gloves Central line prep: Chlorhexidine scrub Local anesthesia used: Lidocaine 1% Amount of anesthesia used (mls): 5 Ultrasound used for placement: No Technique: Seldinger Central line lumen inserted: triple Post Procedure: sutured in place, good blood return, all ports aspirated, flushed, capped, sterile dressing applied, infection control done at entry site Post procedure x-ray: tip of catheter in good position, no pneumothorax seen Patient tolerated procedure: well, no complications Complications: none Consult Discharge Plan - Plan Referrals: NONE,PCP [Primary Care Provider] -
[2019-02-27] MEDS: Insulin DETEMIR 100 UNIT/ML X5UNITS SQ SCH ×2 (00:06→21:39)
[2019-02-27] MEDS: MetroNIDAZOLE 500 MG/100 ML 500 MG/100 ML BAG IVPB SCH ×4 (00:07→23:44)
[2019-02-27] MEDS: 0.9 % Sodium Chloride 1,000 ML IVC SCH ×4 (00:11→23:44)
[2019-02-27] MEDS: Heparin 25,000 UNIT/250 ML D5W 25,000 UNIT/250 ML IV.SOLN IVC SCH ×3 (02:08→17:05)
[2019-02-27] MEDS: Ipratropium/Albuterol Neb 3 ML IH SCH ×6 (03:49→23:17)
[2019-02-27] MEDS: Piperacillin/Tazobactam 3.375 GM in 0.9 % Sodium Chloride Mini Bag 100 ML IVPB SCH (05:07)
--- NOTE | 2019-02-27 05:16 | Event Note ---
Date of Encounter: 02/27/19 Time of Encounter: 05:12 At 20:36, I was informed by patients nurse that patients BP was low at 82/50. His BP had been progressively worsening throughout the day. Earlier in the day, multiple unsuccessful attempts were made to place a femoral CVC for pressure support. 2 boluses of 250 mL of NS were administered. After the boluses, patients BP was found to be low at 72/45. He was satting well on BiPAP, but extremities were cool to the touch. Decision was made to transfer patient to the ICU for pressor support. An additional 500 mL bolus was ordered. Dr. Castro was contacted for placement of CVC. Patient was transferred to ICU bed 9. Heparin was temporarily stopped before procedure. A right-sided subclavian CVC was successfully placed by Dr. Castro. After the procedure, patients blood pressure was noted to be 45/26. Levophed was ordered, and heparin was subsequently resumed. Patients was called by nurse, and was informed of patients current condition. Reassessment at 05:06: Patient is on 7 of Levophed, blood pressure 111/57, heart rate 90 bpm, IV fluids running at 125 per hour. Currently on BiPAP. O2 saturation is 98. Patient does not appear to be in any acute distress at this time.
[2019-02-27 06:12] LABS: Nucleated Red Blood Cells 0.5 /100 WBC (0)
[2019-02-27 06:14] LABS: Hematocrit 49.9 % (37.5-50.1); Mean Corpuscular HGB Conc 30.1 g/dL (31.6-35.5); Mean Corpuscular Hemoglobin 26.1 pg (28.0-33.3); Mean Corpuscular Volume 86.9 fL (83.0-100.0); Mean Platelet Volume 11.9 fL (9.4-12.4); Platelet Count 275 K/mcL (140-400); Red Blood Count 5.74 M/mcL (4.19-5.50)
[2019-02-27 06:17] LABS: Albumin 2.7 g/dL (3.5-5.7); Albumin/Globulin Ratio 0.8 (1.1-2.2); Bilirubin,Total 0.3 mg/dL (0.3-1.0); Calcium 7.8 mg/dL (8.6-10.3); Globulin 3.2 g/dL (2.4-3.5); Potassium 6.3 mEq/L (3.5-5.1); Total Protein 5.9 g/dL (6.4-8.9)
[2019-02-27 06:26] LABS: White Blood Count 39.7 K/mcL (4.3-11.1)
[2019-02-27 06:51] LABS: Monocytes # 3.2 K/mcL (0.0-1.3); Neutrophils # 36.5 K/mcL (1.6-8.9)
[2019-02-27 06:52] LABS: Ovalocytes 1+ (Not Present); Platelet Estimate Normal (Normal)
[2019-02-27 06:59] LABS: Lymphocytes # 1.2 K/mcL (0.6-4.6)
--- NOTE | 2019-02-27 07:19 | Pulmonology Consult Note ---
Date of Encounter: 02/27/19 Time of Encounter: 07:51 Assessment and Plan (1) Septic shock Current Visit: Yes Status: Acute Was admitted to the hospital due to acute on chronic respiratory failure overnight noted to have blood pressure 82/50 Likely secondary to colitis versus pneumonia Did not respond to fluid bolus Has a central venous catheter placed by Dr. Jefferson Required levophed overnight Levophed stopped at this time given modeling Continue to monitor keep MAP above 65 -Continue oral vancomycin and IV Flagyl day 1 (2) Acute and chronic respiratory failure with hypoxia Current Visit: No Status: Acute Mr. Montgomery was presented to the ER overnight due to hypoxia Due to underlying DVTs concern for pulmonary embolism, this morning was saturating 96% on 2 L of nasal cannula At presentation he was on 2 L of nasal cannula oxygen saturation in the 70s Chest x-ray at admission showed bibasilar atelectasis and this morning shows increasing left bibasilar atelectasis versus pneumonia Was requiring BiPAP this morning but oxygen saturation in mid 90s with 2 L of nasal cannula Continue scheduled DuoNeb Continue scheduled Symbicort Continue 40 mg IV every 12 hour Solu-Medrol Holding further antibiotics at this time and will continue to treat underlying colitis If oxygen saturation does not improve would consider CTA (3) DVT (deep venous thrombosis) Current Visit: Yes Status: Acute Was complaining of bilateral lower extremity pain at presentation Bilateral lower leg Doppler shows DVT in right and left lower extremities Continue IV heparin drip Qualifiers: DVT location: lower extremity Affected thrombotic vein of extremity: tibial Chronicity: acute Laterality: bilateral Qualified Code(s): I82.443 - Acute embolism and thrombosis of tibial vein, bilateral (4) Pancolitis Current Visit: Yes Status: Acute Presented to the ED due to shortness of breath White blood cell, presentation was 29 CT abdomen pelvis was ordered in the ER CT of the abdomen and pelvis shows pseudomembranous pancolitis GI stool panel pending Currently in septic shock not responding to IV fluid requiring pressors Will treat for fulminant C. difficile colitis with IV Flagyl and 500 mg 4 times a day oral vancomycin (5) Elevated troponin Current Visit: No Status: Acute Presented with troponin of 0.1 repeat was 0.07 and 0.09 Likely demand ischemia due to septic shock Denies any chest pain (6) Hyperkalemia Current Visit: No Status: Acute Presented with potassium of 5.4 potassium this morning 6.3 IV insulin and dextrose ordered as well as albuterol Nephrology consulted Plan for CRRT today (7) Acute kidney injury Current Visit: Yes Status: Acute Presented with creatinine of 2.75 History of chronic Harper This morning creatinine 4.41 Currently not producing significant monitor urine Nephrology consult Plan for CRRT later today Interventional radiology consulted for temporary dialysis catheter placement (8) Acute metabolic encephalopathy Current Visit: Yes Status: Acute Presented with altered mental status and shortness of breath Secondary to electrolyte abnormalities and acute renal failure, BUN noted to be 95 and potassium of 6.3 This morning awake and alert oriented to person, place and time Correcting hyperkalemia with insulin and albuterol CRRT plan for today (9) COPD exacerbation Current Visit: Yes Status: Acute History of COPD Presented to the ED with oxygen saturations in the 70s with home 2 L Continue intermittent BiPAP Continue scheduled DuoNeb, Symbicort and IV Solu-Medrol 40 every 12 hours (10) CHF (congestive heart failure) Current Visit: No Status: Chronic Previous echo on 11/28/18 showing EF 50% with moderate aortic stenosis with moderate aortic regurg Presented with troponin of 0.1 Repeat echo today showed suboptimal with poor assessment of LV function and wall motion even with Definity Continue to hold furosemide given current volume status Qualifiers: Heart failure type: diastolic Heart failure chronicity: acute on chronic Qualified Code(s): I50.33 - Acute on chronic diastolic (congestive) heart failure (11) Diabetes Current Visit: No Status: Chronic History of diabetes on insulin at home Holding long-acting insulin given within normal limits glucose Medium dose sliding scale and at bedtime ordered Will resume long-acting insulin once diet resumes Qualifiers: Diabetes mellitus type: type 2 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: with detention use Diabetes mellitus complication status: with hyperglycemia Qualified Code(s): E11.65 - Type 2 diabetes mellitus with hyperglycemia; Z79.4 - senior living (current) use of insulin; 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 Waiting for final speciation (13) DVT prophylaxis Current Visit: No Status: Chronic On heparin drip History of Present Illness Reason for consult: dyspnea History of present illness: Mr. Wright is a 68-year-old male with past medical history of pulmonary embolism, COPD, CHF, diabetes, recurrent pneumonia, anoxic brain injury, with chronic indwelling Harper catheter who presented to the ER from outside nursing facility due to altered mental status and shortness of breath. In EMS his oxygen saturation 70s to 80s on 2 L of oxygen. At presentation his white count was 29.1 with bands of 6. Additionally has creatinine was 2.75 and potassium was 5.4. CT scan of abdomen pelvis showed pancolitis likely pseudomembranous colitis. GI panel was ordered but not collected. Overnight on 02/27/19 Mr. Maldonado blood pressure dropped to 82/50 and did not respond to normal saline. Dr. Jefferson was contacted to place central venous catheter in the right subclavian vein. Levophed was subsequently ordered due to ongoing low blood pressure. This morning his white blood cell count is 39.7 with bands of 32. He is also on heparin drip due to bilateral lower extremity DVTs. This morning he is on a BiPAP and responding to command. He is only complaining of abdominal pain and reports recent onset of diarrhea the past few days. He denies fever, chills, chest pain. Past Med Surg Social Fam HX - Past Medical History Medical history: cardiomyopathy, CHF, COPD, diabetes, hyperlipidemia, hypertension Psychiatric history: depression - Past Surgical History Surgical History: pacemaker/AICD, other Additional surgical history: defibrilator - Social History Smoking Status: Former smoker Smokeless Tobacco Status: No Alcohol use: none Drug use: none - Family History Mother Living Status: Hx Family Cancer: Yes (brain tumor) Father Living Status: Hx Family Respiratory Disorders: Yes (COPD) Hx Family Endocrine Disorder: Yes (DM) Medications and Allergies Carvedilol 12.5 mg PO BID 02/19/19 [History] Fexofenadine HCl [Allergy Relief] 180 mg PO DAILY PRN 02/19/19 [History] Fluticasone/Umeclidin/Vilanter [Trelegy Ellipta 100-62.5-25] 1 puff IH DAILY 02/19/19 [History] Furosemide [Lasix] 40 mg PO BID 02/19/19 [History] Insulin NPH, HUMAN [HumuLIN N] 30 unit SQ HS 02/19/19 [History] Insulin Regular Human [Humulin R] 0 unit SQ TIDWM 02/19/19 [History] Isosorbide DInitrate [Isosorbide Dinitrate] 5 mg PO TID 02/19/19 [History] Lovastatin 10 mg PO HS 02/19/19 [History] Sertraline [Zoloft] 100 mg PO HS 02/19/19 [History] Tamsulosin [Flomax] 0.4 mg PO HS 02/19/19 [History] Tiotropium [Spiriva] 18 mcg IH DAILY 02/19/19 [History] Trazodone HCl 100 mg PO HS 02/19/19 [History] rOPINIRole [Requip] 0.25 mg PO HS 02/19/19 [History] Acetaminophen [Tylenol 650mg SUPP] 650 mg RC Q4H PRN 02/20/19 [History] Acetaminophen [Tylenol] 650 mg PO Q4H PRN 02/20/19 [History] Albuterol Sulfate [Ventolin Hfa] 2 puff IH Q4H PRN 02/20/19 [History] Aspirin 81 mg PO DAILY 02/20/19 [History] Bisacodyl [Gentle Laxative] 10 mg RC DAILY PRN 02/20/19 [History] Carvedilol 3.125 mg PO QAM 02/20/19 [History] Chloraseptic [place] [Chloraseptic] 1 spray MM Q2H PRN 02/20/19 [History] Fluticasone Propionate Nasal [Flonase] 2 spray NS DAILY 02/20/19 [History] Glucagon,Human Recombinant [Glucagon Emergency Kit] 1 mg IM AD PRN 02/20/19 [History] Insulin NPH, HUMAN [HumuLIN N] 50 unit SQ QAM 02/20/19 [History] Ipratropium/Albuterol Sulfate [Iprat-Albut 0.5-3(2.5) mg/3 ml] 3 ml IH BID PRN 02/20/19 [History] Loperamide HCl [Anti-Diarrheal] 2 mg PO Q4H PRN MDD 8MG/24HR 02/20/19 [History] Mag Hydrox/Aluminum Hyd/Simeth [Cvs Antacid Plus Anti-Gas Liq] 30 ml PO BID PRN #0 02/20/19 [History] Neomycin [place]/Bacitrac Zn/Poly [Triple Antibiotic Ointment] 1 appl TP DAILY 02/20/19 [History] Neomycin [place]/Bacitrac Zn/Poly [Triple Antibiotic Ointment] 1 appl TP DAILY PRN 02/20/19 [History] Saline Nasal [place] [[place] Nasal [place]] 1 spray NS DAILY PRN 02/20/19 [History] Gabapentin [Neurontin] 300 mg PO TID #30 capsule 02/23/19 [Rx] Tramadol HCl [Ultram] 50 mg PO Q4H PRN 5 Days #20 tablet 02/23/19 [Rx] predniSONE [PredniSONE] 10 mg PO DAILY #20 tablet 02/23/19 [Rx] Allergy/AdvReac Type Severity Reaction Status Date / Time No Known Drug Allergies Allergy See Verified 02/20/19 15:10 Comments ROS unobtainable: due to mental status All Systems: The remainder of the systems were reviewed and are negative - Constitutional Constitutional: no chills, no fever(s) - Cardiovascular Cardiovascular: no chest pain, no dyspnea, no palpitations - Respiratory Respiratory: no cough, no dyspnea, no wheezing, no pain on inspirtation - Gastrointestinal Gastrointestinal: abdominal pain, diarrhea, no hematochezia - Musculoskeletal Musculoskeletal: no weakness, no myalgias - Integumentary Integumentary: no erythema, no rash - Neurological Neurological: no dizziness, no headache(s), no numbness, no paresthesias - Allergic/Immunologic Allergic/Immunologic: no wheezing Physical Examination Vital Signs: Vital Signs, Last 4 Hours Temp Pulse Resp BP Pulse Ox 02/27/19 06:00 91 18 109/69 97 02/27/19 05:00 91 22 98/76 100 02/27/19 04:00 98.1 F 87 18 105/60 98 02/27/19 03:49 22 106/54 99 02/27/19 03:27 88 General appearance: other Eyes: nonicteric ENT: oropharynx moist Auscultation: bilateral: diminished breath sounds (diminished bilateral bases) Cardiovascular: regular rate and rhythm Gastrointestinal: absent bowel sounds, soft, non-tender Extremities: no edema, cool (Left hand), cyanosis (Bilateral lower feet and hands) Musculoskeletal: no deformities pupils equal and round, other (Does not respond to command) Results - Laboratory Findings CBC and BMP: 02/27/19 05:45 02/27/19 05:45 ABG ABG pH 7.35 pH Units (7.32-7.45) 02/26/19 20:38 ABG pCO2 33 mmHg (35-45) L 02/26/19 20:38 ABG pO2 220 mmHg (85-104) H 02/26/19 20:38 ABG O2 Saturation 100 % (95-98) H 02/26/19 20:38 PT/INR, D-dimer PT 12.6 Seconds (9.4-12.1) H 02/25/19 23:49 D-Dimer 2199 ng/mLFEU (0-500) H 02/25/19 23:49 Abnormal lab findings: Abnormal lab results WBC 39.7 K/mcL (4.3-11.1) H* D 02/27/19 05:45 RBC 5.74 M/mcL (4.19-5.50) H 02/27/19 05:45 MCH 26.1 pg (28.0-33.3) L 02/27/19 05:45 MCHC 30.1 g/dL (31.6-35.5) L 02/27/19 05:45 RDW 16.0 % (11.5-14.5) H 02/27/19 05:45 Band Neutrophils % 32.0 % (0-4) H 02/27/19 05:45 Metamyelocytes % 1.0 % (0) H 02/26/19 14:24 Myelocytes % 1.0 % (0) H 02/26/19 14:24 Neutrophils # 36.5 K/mcL (1.6-8.9) H 02/27/19 05:45 Monocytes # 3.2 K/mcL (0.0-1.3) H 02/27/19 05:45 Nucleated RBCs/100 WBC 0.5 /100 WBC (0) H 02/27/19 05:45 Reactive Lymphocytes Present (Not Present) A 02/25/19 23:49 Polychromasia 1+ (Not Present) A 02/26/19 14:24 Ovalocytes 1+ (Not Present) A 02/27/19 05:45 PT 12.6 Seconds (9.4-12.1) H 02/25/19 23:49 D-Dimer 2199 ng/mLFEU (0-500) H 02/25/19 23:49 Heparin Anti-Xa, Unfract 0.00 IU/mL (0.30-0.70) L 02/25/19 23:49 ABG pCO2 33 mmHg (35-45) L 02/26/19 20:38 ABG pO2 220 mmHg (85-104) H 02/26/19 20:38 ABG HCO3 18 mEq/L (21-27) L 02/26/19 20:38 ABG Total CO2 19 mEq/L (20-26) L 02/26/19 20:38 ABG O2 Saturation 100 % (95-98) H 02/26/19 20:38 ABG Base Excess -6 mEq/L (-2 to 3) L 02/26/19 20:38 Sodium 132 mEq/L (136-145) L 02/27/19 05:45 Potassium 6.3 mEq/L (3.5-5.1) H 02/27/19 05:45 Chloride 97 mEq/L (98-107) L 02/27/19 05:45 Carbon Dioxide 16 mEq/L (23-29) L 02/27/19 05:45 BUN 95 mg/dL (8-23) H 02/27/19 05:45 Creatinine 4.41 mg/dL (0.70-1.30) H 02/27/19 05:45 Est GFR ( Amer) 16 (> 60) L 02/27/19 05:45 Est GFR (Non-Af Amer) 13 (> 60) L 02/27/19 05:45 BUN/Creatinine Ratio 28 (6-26) H 02/26/19 07:18 Glucose 181 mg/dL (70-105) H 02/27/19 05:45 POC Glucose 108 mg/dL (70-99) H 02/26/19 22:02 Calculated Osmolality 308 (280-300) H 02/27/19 05:45 Calcium 7.8 mg/dL (8.6-10.3) L 02/27/19 05:45 Troponin I 0.09 ng/mL (< 0.04) H* 02/26/19 14:24 B-Natriuretic Peptide 244 pg/mL (Less than 100) H 02/25/19 23:49 Serum Total Protein 5.9 g/dL (6.4-8.9) L 02/27/19 05:45 Albumin 2.7 g/dL (3.5-5.7) L 02/27/19 05:45 Albumin/Globulin Ratio 0.8 (1.1-2.2) L 02/27/19 05:45 Procalcitonin 12.90 ng/mL (0.00-0.15) H 02/27/19 05:45 Ur Specimen Adequacy See below A 02/26/19 01:44 Urine Clarity Turbid (Clear) A 02/26/19 01:44 Urine Protein 100 mg/dL (Neg-Trace) H 02/26/19 01:44 Urine Blood Large (Negative) H 02/26/19 01:44 Urine Bilirubin Moderate (Negative) H 02/26/19 01:44 Ur Leukocyte Esterase Moderate (Negative) H 02/26/19 01:44 Urine Microscopic RBC 15-30 per hpf (0-3) H 02/26/19 01:44 Urine Microscopic WBC 50-100 per hpf (0-3) H 02/26/19 01:44 Urine Bacteria Many per hpf (None-Few) H 02/26/19 01:44 Urine Yeast Few per hpf (None Seen) H 02/26/19 01:44 Ur Culture Indicated? YES (NO) A 02/26/19 01:44 Vancomycin Trough 18 mcg/mL (5-10) H 02/27/19 05:45 - Microbiology Findings Microbiology Findings: Microbiology, Last 48 Hours 02/26/19 01:44 Urine Culture - Preliminary Urine,Catheterized (Straight) Gram Negative Matt 02/26/19 00:27 Blood Culture - Preliminary Peripheral Venipuncture Culture is incubating and being continuously monitored for growth. Final report to follow. 02/25/19 23:57 Blood Culture - Preliminary Peripheral Venipuncture Culture is incubating and being continuously monito red for growth. Final report to follow. - Clinical Findings Intake & Output: Intake & Output 02/26/19 02/26/19 02/27/19 15:59 23:59 07:59 Intake Total 1350 / 3050 1700 / 3050 350 / 350 Output Total 0 / 250 25 / 25 Balance 1350 / 2800 1700 / 2800 325 / 325 Weight 153.2 kg Consult Discharge Plan - Plan Referrals: NONE,PCP [Primary Care Provider] -
[2019-02-27] MEDS ORDERED: Insulin Human Regular 10 UNIT in 0.9 % Sodium Chloride 10 ML IV ONE (07:41)
[2019-02-27] MEDS ORDERED: *HR* Dextrose 50 % in Water (Syg) 50 ML SYRINGE IVP ONE (07:41)
--- NOTE | 2019-02-27 08:29 | AcuteCareSurgery Progress Note ---
Date of Encounter: 02/27/19 Time of Encounter: 08:00 - Assessment and Plan (1) Colitis Current Visit: Yes Status: Acute Abnormal CAT scan with likely infectious colitis. No evidence of perforation or acute: Dilatation. No indication for surgery at this time. We will be glad to follow along with you. Subjective Narrative: The patient is seen and evaluated on morning rounds with the acute care surgery team. The patient is somnolent. He is currently on CPAP mask. The patient is examined and he does not appear to have guarding or rebound. I personally reviewed the CAT scan of the abdomen. The patient has pancolitis with diffuse mesenteric inflammation which is more prominent at the sigmoid colon and rectum. Findings are consistent with infectious colitis. We will be glad to follow along with you during his treatment. No indication for surgery at this time. Objective Vital Signs - Last 8 Hours Temp Pulse Resp BP Pulse Ox 02/27/19 07:29 18 97 02/27/19 07:00 91 18 94/49 99 02/27/19 06:00 91 18 109/69 97 02/27/19 05:00 91 22 98/76 100 02/27/19 04:00 98.1 F 87 18 105/60 98 02/27/19 03:49 22 106/54 99 02/27/19 03:27 88 02/27/19 03:00 87 21 97 02/27/19 02:00 81 16 98/57 100 02/27/19 01:00 76 18 104/69 100 Intake and Output 02/26/19 02/27/19 02/27/19 23:59 07:59 15:59 Intake Total 1700 / 3050 350 / 350 Output Total 0 / 250 25 / 25 Balance 1700 / 2800 325 / 325 Intake: IV Fluids 1700 / 3050 350 / 350 0.9 % Sodium Chloride 500 ML @ 500 / 500 0 mls/hr .ROUTE .STK-MED ONE Rx #:[id number] 0.9 % Sodium Chloride 1,000 ML 1000 / 2000 @ 125 mls/hr IVC .Q8H [facility] Rx#: [id number] Heparin 25,000 UNIT/250 ML D5W 250 / 250 25,000 unit In 250 ml @ 14 UNIT /KG/HR 20.829 mls/hr IVC . Q12H1M [facility] Rx#:[id number] Levophed 4 MG In Dextrose 5% 0 / 0 0 / 0 250 ML @ 2 MCG/MIN 7.62 mls/hr IVC CONT [facility] Rx#:[id number] Flagyl Premix 500 MG/100 ML 500 100 / 200 100 / 100 mg In 100 ml @ 100 mls/hr IVPB Q8HR [facility] Rx#:[id number] Zosyn 3.375 GM In 0.9 % Sodium 100 / 100 Chloride (Mini-Bag +) 100 ML @ 25 mls/hr IVPB Q12HR [facility] Rx#: [id number] Oral 0 / 0 Output: Urine 0 / 0 Catheter 0 / 250 25 / 25 Other: Meal Dinner Percent of Meal Consumed 0% Weight 153.2 kg Blood Glucose* 108 - General physical appearance chronically ill, obese - Respiratory normal expansion, normal respiratory effort, clear to percussion, clear to auscultation - Cardiovascular Cardiovascular exam: Present: RRR, no murmurs/rubs/gallops - Abdomen Abdomen: Present: bowel sounds present (Obese, no guarding or rebound) - Neurologic other (The patient is somnolent on CPAP mask.) - Labs 02/27/19 05:45 02/27/19 05:45 Diabetes panel 02/26/19 02/27/19 Range/Units 07:18 05:45 Sodium 133 L 132 L (136-145) mEq/L Potassium 5.5 H 6.3 H (3.5-5.1) mEq/L Chloride 97 L 97 L (98-107) mEq/L Carbon Dioxide 16 L 16 L (23-29) mEq/L BUN 88 H 95 H (8-23) mg/dL Creatinine 3.11 H 4.41 H (0.70-1.30) mg/dL Glucose 143 H 181 H (70-105) mg/dL Calcium 8.7 7.8 L (8.6-10.3) mg/dL AST 18 35 (13-39) Units/L ALT 12 16 (7-52) Units/L Alkaline Phosphatase 68 81 (34-104) Units/L Albumin 3.1 L 2.7 L (3.5-5.7) g/dL Calcium panel 02/26/19 02/27/19 Range/Units 07:18 05:45 Calcium 8.7 7.8 L (8.6-10.3) mg/dL Albumin 3.1 L 2.7 L (3.5-5.7) g/dL Pituitary panel 02/26/19 02/27/19 Range/Units 07:18 05:45 Sodium 133 L 132 L (136-145) mEq/L Potassium 5.5 H 6.3 H (3.5-5.1) mEq/L Chloride 97 L 97 L (98-107) mEq/L Carbon Dioxide 16 L 16 L (23-29) mEq/L BUN 88 H 95 H (8-23) mg/dL Creatinine 3.11 H 4.41 H (0.70-1.30) mg/dL Glucose 143 H 181 H (70-105) mg/dL Calcium 8.7 7.8 L (8.6-10.3) mg/dL Adrenal panel 02/26/19 02/27/19 Range/Units 07:18 05:45 Sodium 133 L 132 L (136-145) mEq/L Potassium 5.5 H 6.3 H (3.5-5.1) mEq/L Chloride 97 L 97 L (98-107) mEq/L Carbon Dioxide 16 L 16 L (23-29) mEq/L BUN 88 H 95 H (8-23) mg/dL Creatinine 3.11 H 4.41 H (0.70-1.30) mg/dL Glucose 143 H 181 H (70-105) mg/dL Calcium 8.7 7.8 L (8.6-10.3) mg/dL Total Bilirubin 0.6 0.3 (0.3-1.0) mg/dL AST 18 35 (13-39) Units/L ALT 12 16 (7-52) Units/L Alkaline Phosphatase 68 81 (34-104) Units/L Albumin 3.1 L 2.7 L (3.5-5.7) g/dL Consult Discharge Plan - Plan Referrals: NONE,PCP [Primary Care Provider] -
[2019-02-27] MEDS: Aspirin 81 MG TAB.CHEW PO SCH (08:42)
[2019-02-27] MEDS: predniSONE 20 MG TABLET PO SCH (08:42)
[2019-02-27] MEDS: Furosemide 40 MG TABLET PO SCH ×2 (08:42→20:39)
[2019-02-27] MEDS: Fluticasone Propionate Nasal 50 MCG/SPRAY BOTTLE NS SCH (08:43)
[2019-02-27] MEDS: Insulin LISPRO 300 UNITS/3 ML VIAL SQ SCH ×4 (09:07→20:38)
[2019-02-27] MEDS: Neosporin OINT 15 GM TUBE TP SCH (09:07)
--- NOTE | 2019-02-27 09:26 | Nephrology Consult Note ---
Date of Encounter: 02/27/19 Time of Encounter: 09:24 Assessment and Plan (1) Acute kidney injury superimposed on chronic kidney disease Current Visit: Yes Status: Acute The patient has multifactorial acute kidney injury superimposed on chronic kidney disease. The patient is critically ill and is on vasopressors. Unfortunately the patient has hyperkalemia and is oliguric. While I think the patient would benefit from active hydration I think he needs dialysis secondary to his hyperkalemia, metabolic acidosis with oliguria. Continue to maintain supportive care. We will order renal ultrasound and a workup to evaluate other possible, but unlikely causes of kidney failure. At the time my evaluation I do not think he needs a kidney biopsy. I recommend adjusting medications for renal function I recommend avoiding unnecessary nephrotoxins. We will plan for continuous dialysis today secondary to his critically ill clinical situation and need for metabolic clearance and volume control. Thank you for this interesting consult we will continue to follow with you. 43 minutes spent in the care of this critically ill patient. (2) Colitis Current Visit: Yes Status: Acute Per the primary team and general surgery. 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 Wright is a 68 yo man with a history of diabetes and CHF presents with altered mental status. The history was obtained from the electronic record and corroberated. Refer to admission H&P for details about presentation. Patient was diagnosed with pseudomembranous colitis. His hospital course was complicated with septic shock he was admitted to the intensive care unit. The patient also developed acute kidney injury superimposed on chronic kidney disease. [facility] was consult to assist with evaluation and management of his acute kidney injury. At the time of evaluation the patient denies chest pain, she was of breath, nausea, vomiting. He does have diarrhea. He recalls having kidney disease, but states his kidneys are "fine". He does not recall seeing a kidney doctor in the past. Past Med Surg Social Fam HX - Past Medical History Medical history: cardiomyopathy, CHF, COPD, diabetes, hyperlipidemia, hypertension Psychiatric history: depression - Past Surgical History Surgical History: pacemaker/AICD, other Additional surgical history: defibrilator - Social History Smoking Status: Former smoker Smokeless Tobacco Status: No Alcohol use: none Drug use: none - Family History Mother Living Status: Hx Family Cancer: Yes (brain tumor) Father Living Status: Hx Family Respiratory Disorders: Yes (COPD) Hx Family Endocrine Disorder: Yes (DM) Medications and Allergies Carvedilol 12.5 mg PO BID 02/19/19 [History] Fexofenadine HCl [Allergy Relief] 180 mg PO DAILY PRN 02/19/19 [History] Fluticasone/Umeclidin/Vilanter [Trelegy Ellipta 100-62.5-25] 1 puff IH DAILY 02/19/19 [History] Furosemide [Lasix] 40 mg PO BID 02/19/19 [History] Insulin NPH, HUMAN [HumuLIN N] 30 unit SQ HS 02/19/19 [History] Insulin Regular Human [Humulin R] 0 unit SQ TIDWM 02/19/19 [History] Isosorbide DInitrate [Isosorbide Dinitrate] 5 mg PO TID 02/19/19 [History] Lovastatin 10 mg PO HS 02/19/19 [History] Sertraline [Zoloft] 100 mg PO HS 02/19/19 [History] Tamsulosin [Flomax] 0.4 mg PO HS 02/19/19 [History] Tiotropium [Spiriva] 18 mcg IH DAILY 02/19/19 [History] Trazodone HCl 100 mg PO HS 02/19/19 [History] rOPINIRole [Requip] 0.25 mg PO HS 02/19/19 [History] Acetaminophen [Tylenol 650mg SUPP] 650 mg RC Q4H PRN 02/20/19 [History] Acetaminophen [Tylenol] 650 mg PO Q4H PRN 02/20/19 [History] Albuterol Sulfate [Ventolin Hfa] 2 puff IH Q4H PRN 02/20/19 [History] Aspirin 81 mg PO DAILY 02/20/19 [History] Bisacodyl [Gentle Laxative] 10 mg RC DAILY PRN 02/20/19 [History] Carvedilol 3.125 mg PO QAM 02/20/19 [History] Chloraseptic [place] [Chloraseptic] 1 spray MM Q2H PRN 02/20/19 [History] Fluticasone Propionate Nasal [Flonase] 2 spray NS DAILY 02/20/19 [History] Glucagon,Human Recombinant [Glucagon Emergency Kit] 1 mg IM AD PRN 02/20/19 [History] Insulin NPH, HUMAN [HumuLIN N] 50 unit SQ QAM 02/20/19 [History] Ipratropium/Albuterol Sulfate [Iprat-Albut 0.5-3(2.5) mg/3 ml] 3 ml IH BID PRN 02/20/19 [History] Loperamide HCl [Anti-Diarrheal] 2 mg PO Q4H PRN MDD 8MG/24HR 02/20/19 [History] Mag Hydrox/Aluminum Hyd/Simeth [Cvs Antacid Plus Anti-Gas Liq] 30 ml PO BID PRN #0 02/20/19 [History] Neomycin [place]/Bacitrac Zn/Poly [Triple Antibiotic Ointment] 1 appl TP DAILY 02/20/19 [History] Neomycin [place]/Bacitrac Zn/Poly [Triple Antibiotic Ointment] 1 appl TP DAILY PRN 02/20/19 [History] Saline Nasal [place] [[place]or Nasal [place]] 1 spray NS DAILY PRN 02/20/19 [History] Gabapentin [Neurontin] 300 mg PO TID #30 capsule 02/23/19 [Rx] Tramadol HCl [Ultram] 50 mg PO Q4H PRN 5 Days #20 tablet 02/23/19 [Rx] predniSONE [PredniSONE] 10 mg PO DAILY #20 tablet 02/23/19 [Rx] Allergy/AdvReac Type Severity Reaction Status Date / Time No Known Drug Allergies Allergy See Verified 02/20/19 15:10 Comments Review of Systems All Systems: reviewed and no additional remarkable complaints except as stated (as documented in the hpi) Exam - Vital Signs Vital signs: Initial Vital Signs Temp Pulse Resp BP Pulse Ox 98.8 F 117 24 111/82 94 02/25/19 23:48 02/25/19 23:48 08/03/19 23:48 02/25/19 23:48 02/25/19 23:48 Vital Signs - Last 8 Hours Temp Pulse Resp BP Pulse Ox 02/27/19 09:00 99 18 87/56 95 02/27/19 08:07 94 18 95/80 99 02/27/19 08:00 88 02/27/19 07:29 18 97 02/27/19 07:00 91 18 94/49 99 02/27/19 06:00 91 18 109/69 97 02/27/19 05:00 91 22 98/76 100 02/27/19 04:00 98.1 F 87 18 105/60 98 02/27/19 03:49 22 106/54 99 02/27/19 03:27 88 02/27/19 03:00 87 21 97 02/27/19 02:00 81 16 98/57 100 Intake and Output 02/26/19 02/27/19 02/27/19 23:59 07:59 15:59 Intake Total 1700 / 3050 350 / 1300 950 / 1300 Output Total 0 / 250 25 / 35 10 / 35 Balance 1700 / 2800 325 / 1265 940 / 1265 Intake: IV Fluids 1700 / 3050 350 / 1300 950 / 1300 0.9 % Sodium Chloride 500 ML @ 500 / 500 0 mls/hr .ROUTE .STK-MED [facility] Rx #:[id number] 0.9 % Sodium Chloride 1,000 ML 1000 / 2000 950 / 950 @ 125 mls/hr IVC .Q8H [facility] Rx#: [id number] Heparin 25,000 UNIT/250 ML D5W 250 / 250 25,000 unit In 250 ml @ 14 UNIT /KG/HR 20.829 mls/hr IVC . Q12H1M [facility] Rx#:[id number] Levophed 4 MG In Dextrose 5% 0 / 0 0 / 0 250 ML @ 2 MCG/MIN 7.62 mls/hr IVC CONT [facility] Rx#:[id number] Flagyl Premix 500 MG/100 ML 500 100 / 200 100 / 100 mg In 100 ml @ 100 mls/hr IVPB Q8HR [facility] Rx#:[id number] Zosyn 3.375 GM In 0.9 % Sodium 100 / 100 Chloride (Mini-Bag +) 100 ML @ 25 mls/hr IVPB Q12HR [facility] Rx#: [id number] Oral 0 / 0 Output: Urine 0 / 0 Stool 0 / 0 Catheter 0 / 250 Other: Meal Dinner Percent of Meal Consumed 0% Weight 153.2 kg Blood Glucose* 108 151 - General Appearance General appearance: well-developed, well-nourished, obese EENT: ATNC Neck: supple Respiratory: course breath sounds Cardiology: no edema, regular rate, regular rhythm Gastrointestinal: no tenderness, obese Integumentary: warm and dry Neurologic: alert and oriented x3 Musculoskeletal: no cyanosis Results - Lab Results 02/27/19 05:45 02/27/19 05:45 Most recent lab results 02/27/19 05:45 Calcium 7.8 L Consult Discharge Plan - Plan Referrals: NONE,PCP [Primary Care Provider] -
[2019-02-27] MEDS ORDERED: Vancomycin Oral Soln 125 MG/2.5 ML UDC PO SCH (09:31)
[2019-02-27] MEDS ORDERED: 0.9 % Sodium Chloride 1,000 ML PRIME ONE ×2 (09:46)
[2019-02-27] MEDS ORDERED: *HR* Alteplase (Cathflo) 2 MG VIAL IVP PRN (09:46)
[2019-02-27] MEDS ORDERED: 0.9 % Sodium Chloride 1,000 ML PRIME SCH (10:00)
[2019-02-27] MEDS: MethylPREDNISolone 40 MG/ML VIAL IVP SCH ×2 (10:26→17:23)
[2019-02-27] MEDS: Vancomycin Oral Soln 125 MG/2.5 ML UDC PO SCH ×4 (11:14→20:38)
[2019-02-27] MEDS ORDERED: *HR* Heparin 5,000 UNIT/ML VIAL ONE (11:33)
--- NOTE | 2019-02-27 11:39 | IR Procedure Note ---
Date of procedure: 02/27/19 Consent Obtained: Verbal consent Timeout: Correct patient and procedure verified, Correct site verified, Time out performed, Skin prep completed Local anesthetic: Lidocaine 1% Was there an primary teaching assistant present: No Estimated blood loss (cc): 1 Complications: None; Tolerated procedure well Indications: Renal failure Procedure Performed: Temp HD catheter placement Site/Technique: Temp HD catheter placed bedside Results/Findings (any specimens removed): Catheter placed in right IJ vein Post Procedure Treatment Plan: OK to use Specimen: None
--- NOTE | 2019-02-27 11:42 | Cardiology Consult Note ---
<Lexi Valdivia - Last Filed: 02/27/19 12:16> Date of Encounter: 02/27/19 Time of Encounter: 10:00 Assessment and Plan (1) Elevated troponin Current Visit: No Status: Acute Troponin mildly elevated at 0.10 max in the context of pseudomembranous colitis and septic shock, given tachycardia, developing hypotension and elevated lactic acid. EKG showed no ST elevations; patient denies chest pain. Overall this is consistent with demand ischemia 2/2 sepsis. - No acute cardiac intervention warranted at this time - Continue aspirin, carvedilol, imdur, simvastatin - Continue heparin IV (2) Hyperkalemia Current Visit: Yes Status: Acute Patient's K+ elevated at 6.3 despite insulin, calcium gluconate administration. Given hypotension, septic shock 2/2 C. diff colitis, DM and reported CKD w/ urinary retention and recent UTI in addition to home furosemide for CHF and now levophed for BP support, JENN on top of CKD. Cr 4.41, GFR 13 supports this. - From a cardiac standpoint, given the lack of EKG changes, no acute intervention warranted as nephrology has already ordered dialysis. - Monitor K levels, EKG - Continue holding furosemide as long as patient's volume status tolerates (3) CHF (congestive heart failure) Current Visit: No Status: Chronic Patient's most recent echo prior to this admission showed EF 50%, mildly decreased from lower normal of 55%. BNP 244 this admit. He does have crackles on bilateral lung auscultation and bilateral pitting edema, and on CXR, mild bilateral effusions w/ stable cardiomegaly. Also has JENN w/ hyperkalemia, hypotension 2/2 septic shock. - Continue holding furosemide as patient's volume status and oxygenation tolerates - Echocardiogram ordered to evaluate current EF and valvular function - No acute cardiac intervention at this time Qualifiers: Heart failure type: combined systolic and diastolic Heart failure chronicity: chronic Qualified Code(s): I50.42 - Chronic combined systolic (congestive) and diastolic (congestive) heart failure Discussion w patient/family: The assessment and plan as outlined above was discussed with the patient and/or family members who expressed understanding and agreement. All questions were answered. Thank you for involving us in the care of your patient. Please call with any questions. History of Present Illness Consult date: 02/27/19 Chief complaint: AMS and SOB History of present illness: Mr. Wright is a 68 year old male who came to the ED via EMS on 02/25/19 from an ECF for AMS with SOB and RLE pain. HR 117, BP 111/82, RR 29, T 98F. His O2 saturation on RA was in the 70-80 percent range. He also endorsed nausea, shoulder pain, but no chest pain or diaphoresis. Physical exam significant for bilateral rhonchi and crackles in the lungs. On labs, hyperkalemic to 6.3 and given calcium gluconate plus insulin without resolution in the ED. Cr 4.41, GFR 13. Leukocytosis to 39.8, increased from 23.8 at admit. EKG showed sinus rhythm, no acute changes, no signs consistent with hyperkalemia, and infrequent PVCs. Troponin x4 with max 0.10. D-dimer elevated at 2199. CT scan consistent with pseudomembranous colitis most likely 2/2 C. diff. Lactic acid 2.0 - 2.1. PMH includes CHF w/ EF 50%, PE, DM, COPD, CKD, anoxic brain injury. He has an ICD and an indwelling Harper catheter. He was recently seen in the ED for a UTI in late January. He was placed on CPAP and then BiPAP, started on heparin drip and had furosemide stopped temporarily. Patient was transferred to ICU when overnight on 02/26/19 he became hypotensive to 45/26. He was given Levophed plus IVF, with BP recovering to 111/57, but as of this morning has not been able to tolerate weaning off the pressor. He remains altered mentally with periodic moments of lucidity. He is responsive to questions. Past Med Surg Social Fam HX - Past Medical History Medical history: cardiomyopathy, CHF, COPD, diabetes, hyperlipidemia, hypertension, renal disease Psychiatric history: depression - Past Surgical History Surgical History: pacemaker/AICD, other Additional surgical history: defibrilator - Social History Smoking Status: Former smoker Smokeless Tobacco Status: No Alcohol use: none Drug use: none - Family History Mother Living Status: Hx Family Cancer: Yes (brain tumor) Father Living Status: Hx Family Respiratory Disorders: Yes (COPD) Hx Family Endocrine Disorder: Yes (DM) Medications and Allergies Carvedilol 12.5 mg PO BID 02/19/19 [History] Fexofenadine HCl [Allergy Relief] 180 mg PO DAILY PRN 02/19/19 [History] Fluticasone/Umeclidin/Vilanter [Trelegy Ellipta 100-62.5-25] 1 puff IH DAILY 02/19/19 [History] Furosemide [Lasix] 40 mg PO BID 02/19/19 [History] Insulin NPH, HUMAN [HumuLIN N] 30 unit SQ HS 02/19/19 [History] Insulin Regular Human [Humulin R] 0 unit SQ TIDWM 02/19/19 [History] Isosorbide DInitrate [Isosorbide Dinitrate] 5 mg PO TID 02/19/19 [History] Lovastatin 10 mg PO HS 02/19/19 [History] Sertraline [Zoloft] 100 mg PO HS 02/19/19 [History] Tamsulosin [Flomax] 0.4 mg PO 02/19/19 [History] Tiotropium [Spiriva] 18 mcg IH DAILY 02/19/19 [History] Trazodone HCl 100 mg PO HS 02/19/19 [History] rOPINIRole [Requip] 0.25 mg PO 02/19/19 [History] Acetaminophen [Tylenol 650mg SUPP] 650 mg RC Q4H PRN 02/20/19 [History] Acetaminophen [Tylenol] 650 mg PO Q4H PRN 02/20/19 [History] Albuterol Sulfate [Ventolin Hfa] 2 puff IH Q4H PRN 02/20/19 [History] Aspirin 81 mg PO DAILY 02/20/19 [History] Bisacodyl [Gentle Laxative] 10 mg RC DAILY PRN 02/20/19 [History] Carvedilol 3.125 mg PO QAM 02/20/19 [History] Chloraseptic [place] [Chloraseptic] 1 spray MM Q2H PRN 02/20/19 [History] Fluticasone Propionate Nasal [Flonase] 2 spray NS DAILY 02/20/19 [History] Glucagon,Human Recombinant [Glucagon Emergency Kit] 1 mg IM AD PRN 02/20/19 [History] Insulin NPH, HUMAN [HumuLIN N] 50 unit SQ QAM 02/20/19 [History] Ipratropium/Albuterol Sulfate [Iprat-Albut 0.5-3(2.5) mg/3 ml] 3 ml IH BID PRN 02/20/19 [History] Loperamide HCl [Anti-Diarrheal] 2 mg PO Q4H PRN MDD 8MG/24HR 02/20/19 [History] Mag Hydrox/Aluminum Hyd/Simeth [Cvs Antacid Plus Anti-Gas Liq] 30 ml PO BID PRN #0 02/20/19 [History] Neomycin [place]/Bacitrac Zn/Poly [Triple Antibiotic Ointment] 1 appl TP DAILY 02/20/19 [History] Neomycin [place]/Bacitrac Zn/Poly [Triple Antibiotic Ointment] 1 appl TP DAILY PRN 02/20/19 [History] Saline Nasal [place] [[place] Nasal [place]] 1 spray NS DAILY PRN 02/20/19 [History] Gabapentin [Neurontin] 300 mg PO TID #30 capsule 02/23/19 [Rx] Tramadol HCl [Ultram] 50 mg PO Q4H PRN 5 Days #20 tablet 02/23/19 [Rx] predniSONE [PredniSONE] 10 mg PO DAILY #20 tablet 02/23/19 [Rx] Allergy/AdvReac Type Severity Reaction Status Date / Time No Known Drug Allergies Allergy See Verified 02/20/19 15:10 Comments ROS unobtainable: due to mental status (AMS w/ confusion) All Systems Review: The remainder of the systems were reviewed and are negative Physical Examination Vital Signs, Last 4 Hours Pulse Resp BP Pulse Ox 02/27/19 11:00 97 18 107/91 95 02/27/19 10:00 97 18 113/77 95 02/27/19 09:00 99 18 87/56 95 02/27/19 08:07 94 18 95/80 99 02/27/19 08:00 88 General: Conversant (Oriented x1) HEENT: Atraumatic, Mucus Membranes Moist Neck: Other (Unable to assess 2/2 body habitus) Cardiac: Reg Rate and Rhythm, Normal S1 and S2, No Murmur Lungs: Other (Bilateral crackles, diminished breath sounds) Neuro: Alert and responsive Abdomen: Soft, Non-Tender Skin: Other (Mottling) Musculoskeletal: No Chest Wall Tenderness Extremities: Other (New mottling of all extremities, decreased perfusion, bilateral +2 pitting edema, unable to palpate pulses) Results 02/27/19 05:45 02/27/19 05:45 Lab Results 02/26/19 02/26/19 02/27/19 14:24 14:24 05:45 WBC 23.8 H 39.7 H* D Hgb 14.0 15.0 Hct 45.4 49.9 Plt Count 247 275 Sodium Potassium Chloride Carbon Dioxide BUN Creatinine Glucose Calcium Total Bilirubin AST ALT Alkaline Phosphatase Troponin I 0.09 H* 02/27/19 05:45 WBC Hgb Hct Plt Count Sodium 132 L Potassium 6.3 H Chloride 97 L Carbon Dioxide 16 L BUN 95 H Creatinine 4.41 H Glucose 181 H Calcium 7.8 L Total Bilirubin 0.3 AST 35 ALT 16 Alkaline Phosphatase 81 Troponin I - Imaging and Cardiology Chest Xray: report reviewed Echo: pending - EKG Interpretation EKG results cardiology: personally reviewed, sinus rhythm, other (Infrequent PVC, no acute changes, no changes 2/2 hyperkalemia) Consult Discharge Plan - Plan Referrals: NONE,PCP [Primary Care Provider] - <Barbara Cano - Last Filed: 02/27/19 22:21> Date of Encounter: 02/27/19 - Attending Attestation Patient was seen and evaluated independently by me. Findings, assessment and plan were discussed at length with patient, questions answered. Agree with nurse practitioner's/resident's documentation. Addition as follows, 68yoCM ho HFrecEF NICMP s/p single chamber ICD, PE, COPD, LANCE. P/w AMS, dyspnea. Imp septic shock due to C diff colitis c/b JENN on CKD requiring temp HD, B/L acute DVT. Consulted for minimal trop 0.1 flat. No chest pain. ECG SR, LAD, old ant-sept SC. Tele frequent PACs, occasional PVCs. On levo and BiPAP, coarse BS, IR, cold feet. TTE EF 50%, LVH, mild RV dyskinesis, biAE, mod , mild-mod AR, mild MR/TR, mod PH. Limited echo poor windows unclear LVEF on BiPAP A: Shock on levo, primarily septic, C diff colitis Mild troponin elevation, demand-supply mismatch likely Respiratory failure, COPD JENN on CKD on temp HD Ho HFrecEF s/p single chamber ICD, unclear current LVEF and WMA Ho moderate Acute B/L LE DVT on heparin P: repeat limited TTE for LVEF and WMA after off BiPAP and levo Barbara Cano MD, PhD Assessment and Plan Discussion w patient/family: The assessment and plan as outlined above was discussed with the patient and/or family members who expressed understanding and agreement. All questions were answered. Thank you for involving us in the care of your patient. Please call with any questions. History of Present Illness History of present illness: Mr. Wright is a 68 year old male All Systems Review: The remainder of the systems were reviewed and are negative Physical Examination Vital Signs, Last 4 Hours Temp Pulse Resp BP Pulse Ox 02/27/19 21:00 85 24 110/76 99 02/27/19 20:15 14 114/80 98 02/27/19 20:00 96.2 F L 84 20 108/72 100 02/27/19 19:31 84 02/27/19 19:00 87 20 118/60 99 Results 02/27/19 05:45 02/27/19 05:45 Lab Results 02/27/19 02/27/19 05:45 05:45 WBC 39.7 H* D Hgb 15.0 Hct 49.9 Plt Count 275 Sodium 132 L Potassium 6.3 H Chloride 97 L Carbon Dioxide 16 L BUN 95 H Creatinine 4.41 H Glucose 181 H Calcium 7.8 L Total Bilirubin 0.3 AST 35 ALT 16 Alkaline Phosphatase 81
[2019-02-27 11:46] LABS: Sodium, Urine 23.6 mEq/L
[2019-02-27 12:03] LABS: Protein/Creatinine Ratio,Urine 1.03 mg/mg (0.00-0.20)
[2019-02-27] MEDS: Budesonide/Formoterol 160/4.5 1 PUFF INH IH SCH ×2 (12:06→20:14)
[2019-02-27] MEDS: PrismaSATE BGK 4/2.5 5,000 ML CRRT SCH ×9 (12:43→20:28)
[2019-02-27] MEDS ORDERED: Perflutren Lipid Microsphere 1.3 ML in 0.9 % Sodium Chloride 8.7 ML IVP ONE (13:19)
--- NOTE | 2019-02-27 15:02 | Electrocardiograph Report ---
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
[2019-02-27] MEDS: Norepinephrine 4 MG in D5% in Water 250 ML IVC SCH (16:30)
[2019-02-27] MEDS: rOPINIRole 0.25 MG TABLET PO SCH (20:38)
[2019-02-27] MEDS: *HR* Heparin 5,000 UNIT/ML VIAL IV PRN (23:45)
[2019-02-28] MEDS: Norepinephrine 4 MG in D5% in Water 250 ML IVC SCH ×3 (00:40→19:52)
[2019-02-28] MEDS: PrismaSATE BGK 4/2.5 5,000 ML CRRT SCH ×13 (01:40→23:56)
[2019-02-28] MEDS: *HR* Heparin 5,000 UNIT/ML VIAL IV PRN (02:00)
[2019-02-28] MEDS ORDERED: *HR* LORazepam 2 MG/ML VIAL ONE (02:16)
[2019-02-28] MEDS ORDERED: *HR* LORazepam 2 MG/ML VIAL IVP ONE (02:16)
[2019-02-28] MEDS ORDERED: 0.9 % Sodium Chloride 250 ML ONE (02:45)
[2019-02-28] MEDS: Ipratropium/Albuterol Neb 3 ML IH SCH ×5 (04:01→20:02)
[2019-02-28 04:20] LABS: Mean Corpuscular Hemoglobin 25.8 pg (28.0-33.3)
[2019-02-28 04:21] LABS: Hematocrit 47.4 % (37.5-50.1); Hemoglobin 14.7 g/dL (12.9-16.9); Mean Corpuscular Volume 83.3 fL (83.0-100.0); Mean Platelet Volume 12.4 fL (9.4-12.4); Nucleated Red Blood Cells 0.6 /100 WBC (0); Platelet Count 241 K/mcL (140-400); Red Blood Count 5.69 M/mcL (4.19-5.50)
[2019-02-28 04:41] LABS: Albumin 2.6 g/dL (3.5-5.7); Albumin/Globulin Ratio 0.9 (1.1-2.2); Bilirubin,Total 0.3 mg/dL (0.3-1.0); Calcium 7.3 mg/dL (8.6-10.3); Globulin 2.9 g/dL (2.4-3.5); Potassium 5.4 mEq/L (3.5-5.1); Total Protein 5.5 g/dL (6.4-8.9)
[2019-02-28 04:47] LABS: White Blood Count 35.9 K/mcL (4.3-11.1)
[2019-02-28 05:15] LABS: Lymphocytes # 1.4 K/mcL (0.6-4.6); Monocytes # 0.7 K/mcL (0.0-1.3); Neutrophils # 33.8 K/mcL (1.6-8.9); Platelet Estimate Normal (Normal); Reactive Lymphocytes Present (Not Present)
[2019-02-28] MEDS: MethylPREDNISolone 40 MG/ML VIAL IVP SCH ×2 (06:10→17:20)
[2019-02-28] MEDS: Heparin 25,000 UNIT/250 ML D5W 25,000 UNIT/250 ML IV.SOLN IVC SCH ×2 (06:11→23:55)
--- NOTE | 2019-02-28 06:30 | Electrocardiograph Report ---
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
[2019-02-28] MEDS: Insulin LISPRO 300 UNITS/3 ML VIAL SQ SCH ×4 (07:33→20:12)
[2019-02-28] MEDS: MetroNIDAZOLE 500 MG/100 ML 500 MG/100 ML BAG IVPB SCH ×3 (07:52→23:53)
[2019-02-28] MEDS: Budesonide/Formoterol 160/4.5 1 PUFF INH IH SCH ×2 (08:06→20:02)
[2019-02-28] MEDS: Vancomycin Oral Soln 125 MG/2.5 ML UDC PO SCH ×5 (08:24→21:24)
[2019-02-28] MEDS: Aspirin 81 MG TAB.CHEW PO SCH (08:24)
[2019-02-28] MEDS: Furosemide 40 MG TABLET PO SCH ×2 (08:25→20:12)
--- NOTE | 2019-02-28 08:25 | Cardiology Progress Note ---
Date of Encounter: 02/28/19 Time of Encounter: 08:24 Assessment and Plan (1) Elevated troponin Current Visit: No Status: Acute Troponin mildly elevated at 0.10 max in the context of pseudomembranous colitis and septic shock, given tachycardia, developing hypotension and elevated lactic acid. EKG showed no ST elevations; patient denies chest pain. Overall this is consistent with demand ischemia 2/2 sepsis. - No acute cardiac intervention warranted at this time - Continue aspirin, carvedilol, imdur, simvastatin - Continue heparin IV (2) Hyperkalemia Current Visit: Yes Status: Acute Patient's K+ elevated at 6.3 despite insulin, calcium gluconate administration. Given hypotension, septic shock 2/2 C. diff colitis, DM and reported CKD w/ urinary retention and recent UTI in addition to home furosemide for CHF and now levophed for BP support, JENN on top of CKD. Cr 4.41, GFR 13 supports this. - From a cardiac standpoint, given the lack of EKG changes, no acute intervention warranted as nephrology has already ordered dialysis. - Monitor K levels, EKG - Continue holding furosemide as long as patient's volume status tolerates (3) CHF (congestive heart failure) Current Visit: No Status: Chronic Patient's most recent echo prior to this admission showed EF 50%, mildly decreased from lower normal of 55%. BNP 244 this admit. He does have crackles on bilateral lung auscultation and bilateral pitting edema, and on CXR, mild bilateral effusions w/ stable cardiomegaly. Also has JENN w/ hyperkalemia, hypote nsion 2/2 septic shock. - Continue holding furosemide as patient's volume status and oxygenation to lerates - Echocardiogram ordered to evaluate current EF and valvular function - No acute cardiac intervention at this time Qualifiers: Heart failure type: diastolic Heart failure chronicity: acute on chronic Qualified Code(s): I50.33 - Acute on chronic diastolic (congestive) heart failure Discussion w patient/family: The assessment and plan as outlined above was discussed with the patient and/or family members who expressed understanding and agreement. All questions were answered. Thank you for involving us in the care of your patient. Please call with any questions. Objective Vital Signs, Last 4 Hours Temp Pulse Resp BP Pulse Ox 02/28/19 08:06 16 96 02/28/19 08:00 98.3 F 91 16 94/80 100 02/28/19 07:00 94 18 95/67 94 02/28/19 06:00 94 22 80/69 100 02/28/19 05:00 95 14 82/51 100 Results 02/28/19 04:02 02/28/19 04:02 Lab Results 02/28/19 02/28/19 04:02 04:02 WBC 35.9 H* Hgb 14.7 Hct 47.4 Plt Count 241 Sodium 133 L Potassium 5.4 H Chloride 99 Carbon Dioxide 20 L BUN 58 H Creatinine 2.93 H Glucose 176 H Calcium 7.3 L Total Bilirubin 0.3 AST 50 H ALT 20 Alkaline Phosphatase 89 Consult Discharge Plan - Plan Referrals: NONE,PCP [Primary Care Provider] -
[2019-02-28] MEDS: Neosporin OINT 15 GM TUBE TP SCH (08:30)
--- NOTE | 2019-02-28 08:45 | Pulmonology Progress Note ---
Date of Encounter: 02/28/19 Time of Encounter: 08:40 Assessment and Plan (1) Septic shock Current Visit: Yes Status: Acute Was admitted to the hospital due to acute on chronic respiratory failure Likely secondary to colitis versus pneumonia Did not respond to fluid bolus Has a central venous catheter placed by Dr. Jefferson Titrating down levophed Continue to monitor keep MAP above 65 -Continue oral vancomycin and IV Flagyl day 3 -1 L of normal saline high rate ordered per nephrology recommendation (2) Acute and chronic respiratory failure with hypoxia Current Visit: No Status: Acute Mr. Montgomery was presented to the ER overnight due to hypoxia Due to underlying DVTs concern for pulmonary embolism, this morning was saturating 96% on 2 L of nasal cannula At presentation he was on 2 L of nasal cannula oxygen saturation in the 70s Chest x-ray at admission showed bibasilar atelectasis and this morning shows increasing left bibasilar atelectasis versus pneumonia Continue scheduled DuoNeb Continue scheduled Symbicort Continue 40 mg IV every 12 hour Solu-Medrol, will consider stopping after total 5 days Holding further antibiotics at this time and will continue to treat underlying colitis If oxygen saturation does not improve would consider CTA (3) DVT (deep venous thrombosis) Current Visit: Yes Status: Acute Was complaining of bilateral lower extremity pain at presentation Bilateral lower leg Doppler shows DVT in right and left lower extremities Continue IV heparin drip Qualifiers: DVT location: lower extremity Affected thrombotic vein of extremity: tibial Chronicity: acute Laterality: bilateral Qualified Code(s): I82.443 - Acute embolism and thrombosis of tibial vein, bilateral (4) Pancolitis Current Visit: Yes Status: Acute Presented to the ED due to shortness of breath White blood cell at presentation was 29; CT abdomen pelvis was ordered in the ER CT of the abdomen and pelvis shows pseudomembranous pancolitis GI stool panel shows C. difficile colitis Currently in septic shock not responding to IV fluid requiring pressors Will treat for fulminant C. difficile colitis with IV Flagyl and 500 mg 4 times a day oral vancomycin (5) Elevated troponin Current Visit: No Status: Acute Presented with troponin of 0.1 repeat was 0.07 and 0.09 Likely demand ischemia due to septic shock Denies any chest pain (6) Hyperkalemia Current Visit: No Status: Acute Presented with potassium of 5.4 potassium this morning 5.4 Yesterday received IV insulin and dextrose ordered as well as albuterol Nephrology consulted On continuous renal presented therapy (7) Acute kidney injury Current Visit: Yes Status: Acute Presented with creatinine of 2.75 History of chronic Harper This morning creatinine 2.93 Currently not producing significant monitor urine Nephrology consult On continuous renal replacement therapy (8) Acute metabolic encephalopathy Current Visit: Yes Status: Acute Presented with altered mental status and shortness of breath Secondary to electrolyte abnormalities and acute renal failure, BUN noted to be 95 and potassium of 6.3 This morning awake and alert oriented to person, place and time Correcting hyperkalemia with insulin and albuterol CRRT plan for today (9) COPD exacerbation Current Visit: Yes Status: Acute History of COPD Presented to the ED with oxygen saturations in the 70s with home 2 L Continue intermittent BiPAP Continue scheduled DuoNeb, Symbicort and IV Solu-Medrol 40 every 12 hours stop after total of 5 days (10) CHF (congestive heart failure) Current Visit: No Status: Chronic Previous echo on 11/28/18 showing EF 50% with moderate aortic stenosis with moderate aortic regurg Presented with troponin of 0.1 Repeat echo today showed suboptimal with poor assessment of LV function and wall motion even with Definity Continue to hold furosemide given current volume status Qualifiers: Heart failure type: diastolic Heart failure chronicity: acute on chronic Qualified Code(s): I50.33 - Acute on chronic diastolic (congestive) heart failure (11) Diabetes Current Visit: No Status: Chronic History of diabetes on insulin at home Holding long-acting insulin given within normal limits glucose Medium dose sliding scale and at bedtime ordered Will resume long-acting insulin once diet resumes Qualifiers: Diabetes mellitus type: type 2 Diabetes mellitus senior living insulin use: with senior living use Diabetes mellitus complication status: with hyperglycemia Qualified Code(s): E11.65 - Type 2 diabetes mellitus with hyperglycemia; Z79.4 - nursing home (current) use of insulin; Z79.4 - termination clerk (current) use of insulin; Z79.4 - termination clerk (current) use of insulin; Z79.4 - nursing home (current) use of insulin (12) Abnormal urinalysis Current Visit: Yes Status: Acute At presentation urinalysis showed many bacteria and moderate leukocyte esterase Does have history of chronic Harper Previously has had MDRO oh Pseudomonas aeruginosa this on 12/18/18 and 02/19/19 Holding any treatments at this time. Waiting for final speciation (13) Cirrhosis Current Visit: Yes Status: Acute CT abdomen noted nodularity of liver suspected cirrhosis Ongoing hypotension suggesting chronic due to cirrhosis Levophed was causing mottling of the skin -25 mg every 6 hours have albumin ordered -Midodrine 3 times a day ordered Qualifiers: Hepatic cirrhosis type: unspecified hepatic cirrhosis Ascites presence: unspecified Qualified Code(s): K74.60 - Unspecified cirrhosis of liver (14) DVT prophylaxis Current Visit: No Status: Chronic On heparin drip Subjective Interval history: Mr. Wright was seen at bedside this morning. He was resting comfortably and denied any complaints this morning. He denied fever, chills, shortness of breath, chest pain, nausea or emesis. Objective PUL Vital signs: Last Vital Signs Temp 98.3 F 02/28/19 08:00 Pulse 91 02/28/19 08:00 Resp 16 02/28/19 08:06 BP 94/80 02/28/19 08:00 Pulse Ox 96 02/28/19 08:06 General appearance: no acute distress, alert Eyes: nonicteric ENT: oropharynx moist Neck: supple Effort: mildly labored (Was requiring BiPAP) Auscultation: bilateral: diminished breath sounds Cardiovascular: regular rate and rhythm Gastrointestinal: non-tender, guarding, other (Distended) Extremities: no edema, pulses normal Results - Laboratory Findings CBC and BMP: 02/28/19 04:02 02/28/19 04:02 ABG ABG pH 7.35 pH Units (7.32-7.45) 02/26/19 20:38 ABG pCO2 33 mmHg (35-45) L 02/26/19 20:38 ABG pO2 220 mmHg (85-104) H 02/26/19 20:38 ABG O2 Saturation 100 % (95-98) H 02/26/19 20:38 PT/INR, D-dimer PT 12.6 Seconds (9.4-12.1) H 02/25/19 23:49 D-Dimer 2199 ng/mLFEU (0-500) H 02/25/19 23:49 Abnormal lab findings: Abnormal lab results WBC 35.9 K/mcL (4.3-11.1) H* 02/28/19 04:02 RBC 5.69 M/mcL (4.19-5.50) H 02/28/19 04:02 MCH 25.8 pg (28.0-33.3) L 02/28/19 04:02 MCHC 31.0 g/dL (31.6-35.5) L 02/28/19 04:02 RDW 16.0 % (11.5-14.5) H 02/28/19 04:02 Band Neutrophils % 20.0 % (0-4) H 02/28/19 04:02 Metamyelocytes % 1.0 % (0) H 02/26/19 14:24 Myelocytes % 1.0 % (0) H 02/26/19 14:24 Neutrophils # 33.8 K/mcL (1.6-8.9) H 02/28/19 04:02 Monocytes # 3.2 K/mcL (0.0-1.3) H 02/27/19 05:45 Nucleated RBCs/100 WBC 0.6 /100 WBC (0) H 02/28/19 04:02 Reactive Lymphocytes Present (Not Present) A 02/28/19 04:02 Polychromasia 1+ (Not Present) A 02/26/19 14:24 Ovalocytes 1+ (Not Present) A 02/27/19 05:45 PT 12.6 Seconds (9.4-12.1) H 02/25/19 23:49 D-Dimer 2199 ng/mLFEU (0-500) H 02/25/19 23:49 Heparin Anti-Xa, Unfract 1.73 IU/mL (0.30-0.70) H* 02/28/19 04:02 ABG pCO2 33 mmHg (35-45) L 02/26/19 20:38 ABG pO2 220 mmHg (85-104) H 02/26/19 20:38 ABG HCO3 18 mEq/L (21-27) L 02/26/19 20:38 ABG Total CO2 19 mEq/L (20-26) L 02/26/19 20:38 ABG O2 Saturation 100 % (95-98) H 02/26/19 20:38 ABG Base Excess -6 mEq/L (-2 to 3) L 02/26/19 20:38 Sodium 133 mEq/L (136-145) L 02/28/19 04:02 Potassium 5.4 mEq/L (3.5-5.1) H 02/28/19 04:02 Chloride 97 mEq/L (98-107) L 02/27/19 05:45 Carbon Dioxide 20 mEq/L (23-29) L 02/28/19 04:02 BUN 58 mg/dL (8-23) H 02/28/19 04:02 Creatinine 2.93 mg/dL (0.70-1.30) H 02/28/19 04:02 Est GFR ( Amer) 26 (> 60) L 02/28/19 04:02 Est GFR (Non-Af Amer) 22 (> 60) L 02/28/19 04:02 BUN/Creatinine Ratio 28 (6-26) H 02/26/19 07:18 Glucose 176 mg/dL (70-105) H 02/28/19 04:02 POC Glucose 147 mg/dL (70-99) H 02/27/19 19:52 Calculated Osmolality 308 (280-300) H 02/27/19 05:45 Calcium 7.3 mg/dL (8.6-10.3) L 02/28/19 04:02 AST 50 Units/L (13-39) H 02/28/19 04:02 Troponin I 0.09 ng/mL (< 0.04) H* 02/26/19 14:24 B-Natriuretic Peptide 244 pg/mL (Less than 100) H 02/25/19 23:49 Serum Total Protein 5.5 g/dL (6.4-8.9) L 02/28/19 04:02 Albumin 2.6 g/dL (3.5-5.7) L 02/28/19 04:02 Albumin/Globulin Ratio 0.9 (1.1-2.2) L 02/28/19 04:02 Procalcitonin 12.90 ng/mL (0.00-0.15) H 02/27/19 05:45 Ur Specimen Adequacy See below A 02/26/19 01:44 Urine Clarity Turbid (Clear) A 02/26/19 01:44 Urine Protein 100 mg/dL (Neg-Trace) H 02/26/19 01:44 Urine Blood Large (Negative) H 02/26/19 01:44 Urine Bilirubin Moderate (Negative) H 02/26/19 01:44 Ur Leukocyte Esterase Moderate (Negative) H 02/26/19 01:44 Urine Microscopic RBC 15-30 per hpf (0-3) H 02/26/19 01:44 Urine Microscopic WBC 50-100 per hpf (0-3) H 02/26/19 01:44 Urine Bacteria Many per hpf (None-Few) H 02/26/19 01:44 Urine Yeast Few per hpf (None Seen) H 02/26/19 01:44 Ur Culture Indicated? YES (NO) A 02/26/19 01:44 Protein/Creatinin Ratio 1.03 mg/mg (0.00-0.20) H 02/27/19 11:10 Urine Total Protein 216 mg/dL (1-14) H 02/27/19 11:10 Nasal Screen MRSA (PCR) DETECTED (Not Detect) A 02/27/19 08:18 Stl C. diff Tox B Gene Positive (Negative) A 02/27/19 23:30 Vancomycin Trough 18 mcg/mL (5-10) H 02/27/19 05:45 - Microbiology Findings Microbiology Findings: Microbiology, Last 48 Hours 02/26/19 01:44 Urine Culture - Preliminary Urine,Catheterized (Straight) Gram Negative Matt 02/27/19 23:30 Clostridium difficile Toxin A & B - Final Stool 02/26/19 00:27 Blood Culture - Preliminary Peripheral Venipuncture Culture is incubating and being continuously monitored for growth. Final report to follow. 02/25/19 23:57 Blood Culture - Preliminary Peripheral Venipuncture Culture is incubating and being continuously monitored for growth. Final report to follow. - Clinical Findings Intake & Output: Intake & Output 02/27/19 02/28/19 02/28/19 23:59 07:59 15:59 Intake Total 505 / 2359 728 / 728 Output Total 1326 / 1483 446 / 571 125 / 571 Balance -821 / 876 282 / 157 -125 / 157 Weight 153.2 kg 152 kg 153 kg Consult Discharge Plan - Plan Referrals: NONE,PCP [Primary Care Provider] -
[2019-02-28] MEDS ORDERED: predniSONE 10 MG TABLET PO SCH (09:00)
--- NOTE | 2019-02-28 10:36 | AcuteCareSurgery Progress Note ---
<Candy Valentine Bita - Last Filed: 02/28/19 10:33> Date of Encounter: 02/28/19 Time of Encounter: 07:50 - Assessment and Plan (1) Pancolitis Current Visit: Yes Status: Acute Infectious etiology. KUB on 02/28/2018 does not reveal any bowel dilation. You can continue with current treatment. Of note if dilation of the bowel progresses he may require a colectomy. Oral vancomycin treatments are ordered however the patient is obtunded and on CPAP. If he progresses to needing intubation, recommend OG placement with continuation of oral Vanc administration. Consider vancomycin enemas. Consider infectious disease consult per primary team. Surgery will continue to follow along with you Subjective Narrative: Unable to obtain ROS pt drowsy. Objective Vital Signs - Last 8 Hours Temp Pulse Resp BP Pulse Ox 02/28/19 10:00 94 22 71/65 99 02/28/19 09:00 93 22 70/59 99 02/28/19 08:06 16 96 02/28/19 08:00 98.3 F 96 16 94/80 100 02/28/19 07:00 94 18 95/67 94 02/28/19 06:00 94 22 80/69 100 02/28/19 05:00 95 14 82/51 100 02/28/19 04:02 96 20 100 02/28/19 04:00 98.0 F 94 24 73/55 100 02/28/19 03:00 91 24 110/73 100 Intake and Output 02/27/19 02/28/19 02/28/19 23:59 07:59 15:59 Intake Total 505 / 2359 728 / 76231 08586 / 06181 Output Total 1326 / 1483 446 / 793 347 / 793 Balance -821 / 876 282 / 37871 9803 / 20070 Intake: IV Fluids 505 / 2359 728 / 53586 73422 / 47323 PrismaSATE BGK 4/2.5 5,000 ML @ 0 / 0 0 / 69839 03196 / 78206 1500 mls/hr CRRT CONT [facility] Rx#: [id number] Heparin 25,000 UNIT/250 ML D5W 250 / 500 225 / 225 25,000 unit In 250 ml @ 14 UNIT /KG/HR 20.829 mls/hr IVC . Q12H1M [facility] Rx#:[id number] Levophed 4 MG In Dextrose 5% 155 / 309 403 / 453 50 / 453 250 ML @ 2 MCG/MIN 7.62 mls/hr IVC CONT [facility] Rx#:[id number] Flagyl Premix 500 MG/100 ML 500 100 / 300 100 / 200 100 / 200 mg In 100 ml @ 100 mls/hr IVPB Q8HR [facility] Rx#:[id number] Output: Stool 0 / 0 Taryn 563 / 624 218 / 389 171 / 389 Rectal Tube 200 / 200 0 / 0 0 / 0 Catheter 0 / 35 10 / 15 5 / 15 Fluid Removed by Prismaflex 563 / 624 218 / 389 171 / 389 Other: Weight 153.2 kg 152 kg 153 kg Blood Glucose* 147 125 Patient Weight 02/28/19 23:59 Weight 153 kg - General physical appearance no distress (drowsy) - ENT atraumatic, normocephalic - Neck Neck exam: trachea midline - Respiratory other (decreaed resp effort, decreaed breath sounds) - Cardiovascular Cardiovascular exam: Present: distant heart sounds - Abdomen Abdomen: Present: soft, tympanic, distended. Absent: bowel sounds present - Musculoskeletal other (drowsy) - Labs 02/28/19 04:02 02/28/19 04:02 Diabetes panel 02/28/19 Range/Units 04:02 Sodium 133 L (136-145) mEq/L Potassium 5.4 H (3.5-5.1) mEq/L Chloride 99 (98-107) mEq/L Carbon Dioxide 20 L (23-29) mEq/L BUN 58 H (8-23) mg/dL Creatinine 2.93 H (0.70-1.30) mg/dL Glucose 176 H (70-105) mg/dL Calcium 7.3 L (8.6-10.3) mg/dL AST 50 H (13-39) Units/L ALT 20 (7-52) Units/L Alkaline Phosphatase 89 (34-104) Units/L Albumin 2.6 L (3.5-5.7) g/dL Calcium panel 02/28/19 Range/Units 04:02 Calcium 7.3 L (8.6-10.3) mg/dL Albumin 2.6 L (3.5-5.7) g/dL Pituitary panel 02/28/19 Range/Units 04:02 Sodium 133 L (136-145) mEq/L Potassium 5.4 H (3.5-5.1) mEq/L Chloride 99 (98-107) mEq/L Carbon Dioxide 20 L (23-29) mEq/L BUN 58 H (8-23) mg/dL Creatinine 2.93 H (0.70-1.30) mg/dL Glucose 176 H (70-105) mg/dL Calcium 7.3 L (8.6-10.3) mg/dL Adrenal panel 02/28/19 Range/Units 04:02 Sodium 133 L (136-145) mEq/L Potassium 5.4 H (3.5-5.1) mEq/L Chloride 99 (98-107) mEq/L Carbon Dioxide 20 L (23-29) mEq/L BUN 58 H (8-23) mg/dL Creatinine 2.93 H (0.70-1.30) mg/dL Glucose 176 H (70-105) mg/dL Calcium 7.3 L (8.6-10.3) mg/dL Total Bilirubin 0.3 (0.3-1.0) mg/dL AST 50 H (13-39) Units/L ALT 20 (7-52) Units/L Alkaline Phosphatase 89 (34-104) Units/L Albumin 2.6 L (3.5-5.7) g/dL Consult Discharge Plan - Plan Referrals: NONE,PCP [Primary Care Provider] - <Dave Guerra - Last Filed: 02/28/19 14:37> Date of Encounter: 02/28/19 - Assessment and Plan (1) Colitis Current Visit: Yes Status: Acute Objective Vital Signs - Last 8 Hours Temp Pulse Resp BP Pulse Ox 02/28/19 14:00 91 24 102/84 98 02/28/19 13:00 86 22 113/78 95 02/28/19 12:00 98.6 F 86 22 96/54 100 02/28/19 11:48 20 99 02/28/19 11:00 88 20 99/54 100 02/28/19 10:00 94 22 71/65 99 02/28/19 09:00 93 22 70/59 99 02/28/19 08:06 16 96 02/28/19 08:00 98.3 F 96 16 94/80 100 02/28/19 07:00 94 18 95/67 94 Intake and Output 02/27/19 02/28/19 02/28/19 23:59 07:59 15:59 Intake Total 505 / 2359 728 / 13283 Output Total 1326 / 1483 446 / 1121 675 / 1121 Balance -821 / 876 / Intake: IV Fluids 505 / 2359 728 / 28645 PrismaSATE BGK 4/2.5 5,000 ML @ 0 / 0 0 / 67302 61579 / 50969 1500 mls/hr CRRT CONT [facility] Rx#: [id number] Heparin 25,000 UNIT/250 ML D5W 250 / 500 225 / 372 147 / 372 25,000 unit In 250 ml @ 14 UNIT /KG/HR 20.829 mls/hr IVC . Q12H1M [facility] Rx#:[id number] Levophed 4 MG In Dextrose 5% 155 / 309 403 / 453 50 / 453 250 ML @ 2 MCG/MIN 7.62 mls/hr IVC CONT [facility] Rx#:[id number] Flagyl Premix 500 MG/100 ML 500 100 / 300 100 / 200 100 / 200 mg In 100 ml @ 100 mls/hr IVPB Q8HR [facility] Rx#:[id number] Output: Stool 0 / 0 Taryn 563 / 624 218 / 553 335 / 553 Rectal Tube 200 / 200 0 / 0 0 / 0 Catheter 0 / 35 10 / 15 5 / 15 Fluid Removed by Prismaflex 563 / 624 218 / 553 335 / 553 Other: Weight 153.2 kg 152 kg 153 kg Blood Glucose* 147 141 Patient Weight 02/28/19 23:59 Weight 153 kg - Labs 02/28/19 04:02 02/28/19 04:02 Diabetes panel 02/28/19 Range/Units 04:02 Sodium 133 L (136-145) mEq/L Potassium 5.4 H (3.5-5.1) mEq/L Chloride 99 (98-107) mEq/L Carbon Dioxide 20 L (23-29) mEq/L BUN 58 H (8-23) mg/dL Creatinine 2.93 H (0.70-1.30) mg/dL Glucose 176 H (70-105) mg/dL Calcium 7.3 L (8.6-10.3) mg/dL AST 50 H (13-39) Units/L ALT 20 (7-52) Units/L Alkaline Phosphatase 89 (34-104) Units/L Albumin 2.6 L (3.5-5.7) g/dL Calcium panel 02/28/19 Range/Units 04:02 Calcium 7.3 L (8.6-10.3) mg/dL Albumin 2.6 L (3.5-5.7) g/dL Pituitary panel 02/28/19 Range/Units 04:02 Sodium 133 L (136-145) mEq/L Potassium 5.4 H (3.5-5.1) mEq/L Chloride 99 (98-107) mEq/L Carbon Dioxide 20 L (23-29) mEq/L BUN 58 H (8-23) mg/dL Creatinine 2.93 H (0.70-1.30) mg/dL Glucose 176 H (70-105) mg/dL Calcium 7.3 L (8.6-10.3) mg/dL Adrenal panel 02/28/19 Range/Units 04:02 Sodium 133 L (136-145) mEq/L Potassium 5.4 H (3.5-5.1) mEq/L Chloride 99 (98-107) mEq/L Carbon Dioxide 20 L (23-29) mEq/L BUN 58 H (8-23) mg/dL Creatinine 2.93 H (0.70-1.30) mg/dL Glucose 176 H (70-105) mg/dL Calcium 7.3 L (8.6-10.3) mg/dL Total Bilirubin 0.3 (0.3-1.0) mg/dL AST 50 H (13-39) Units/L ALT 20 (7-52) Units/L Alkaline Phosphatase 89 (34-104) Units/L Albumin 2.6 L (3.5-5.7) g/dL - Attending Attestation I have personally performed a face to face evaluation on this patient. I have reviewed and agree with the care plan. History and Exam by me shows: The patient is seen and evaluated on morning rounds with the acute care surgery team. He looks a bit worse. He is on Levophed. His white blood cell count has risen. His abdomen remains relatively benign to palpation. He does appear to have pain colitis secondary to Clostridium difficile. We obtained a KUB of the abdomen today the colon is not dilated. There is no indication for subtotal abdominal colectomy at this time. Continue aggressive treatment. Dave Guerra MD FACS
[2019-02-28] MEDS ORDERED: 0.9 % Sodium Chloride 500 ML ONE (10:46)
[2019-02-28 11:50] LABS: VBG HCO3 23 mEq/L (21-27); VBG PCO2 39 mmHg (41-51); VBG PH 7.37 pH Units (7.32-7.42); VBG PO2 53 mmHg (25-50)
[2019-02-28] MEDS: Albumin 25% 25gram/100mL 25 GM/100 ML IV.SOLN IVPB SCH ×3 (12:10→23:53)
--- NOTE | 2019-02-28 12:27 | Nephrology Progress Note ---
Date of Encounter: 02/28/19 Time of Encounter: 12:25 - Assessment and Plan (1) Acute kidney injury superimposed on chronic kidney disease Current Visit: Yes Status: Acute The patient has multifactorial acute kidney injury superimposed on chronic kidney disease. The patient is critically ill and is on vasopressors. He is oligo/anuric with no significant improvement in his renal function. Will continue with Continuous dialysis for clearance. While the patient has ATN from sepsis I'm concerned that his shock may be part sepsis and possibly part hypovolemia. Recommend giving bolus of 0.9 to minimize the need for vasopressor. Renal ultrasound negative for obstruction. No need for renal biopsy at this time. Electrolytes improving on CVVHDF. Continue to maintain supportive care. I recommend adjusting medications for renal function I recommend avoiding unnecessary nephrotoxins. We will plan for continuous dialysis today secondary to his critically ill clinical situation and need for metabolic clearance and volume control. Thank you for this interesting consult we will continue to follow with you. 31 minutes spent in the care of this critically ill patient. (2) Colitis Current Visit: Yes Status: Acute Per the primary team and general surgery. (3) Morbid obesity with BMI of 45.0-49.9, adult Current Visit: No Status: Chronic (4) T2DM (type 2 diabetes mellitus) Current Visit: No Status: Chronic Per the primary team Qualifiers: Diabetes mellitus fci insulin use: with fci use Diabetes mellitus complication status: without complication Qualified Code(s): E11.9 - Type 2 diabetes mellitus without complications; Z79.4 - long term (current) use of insulin (5) Hyperkalemia Current Visit: Yes Status: Acute (6) Metabolic acidosis Current Visit: Yes Status: Acute Subjective Principal diagnosis: JENN Interval history: Mr. Wright remains on supplemental oxygen. His biggest complaint is leg/feet discomfort. He denies abdominal pain. He denies chest pain. He thinks his breathing is better. His review of system otherwise is stable or negative. He remains critically ill. Objective - Vital Signs Vital signs: Vital Signs Temp Pulse Resp BP Pulse Ox 02/28/19 11:00 88 20 99/54 100 02/28/19 10:00 94 22 71/65 99 02/28/19 09:00 93 22 70/59 99 02/28/19 08:06 16 96 02/28/19 08:00 98.3 F 96 16 94/80 100 02/28/19 07:00 94 18 95/67 94 02/28/19 06:00 94 22 80/69 100 02/28/19 05:00 95 14 82/51 100 02/28/19 04:02 96 20 100 02/28/19 04:00 98.0 F 94 24 73/55 100 02/28/19 03:00 91 24 110/73 100 02/28/19 02:00 91 36 108/62 93 02/28/19 01:00 94 24 83/61 99 02/28/19 00:00 96.8 F L 95 24 92/66 98 02/27/19 23:18 28 96 02/27/19 23:00 92 26 89/57 99 02/27/19 22:00 87 22 87/64 96 02/27/19 21:00 85 24 110/76 99 02/27/19 20:15 14 114/80 98 02/27/19 20:00 96.2 F L 84 20 108/72 100 02/27/19 19:31 84 02/27/19 19:00 87 20 118/60 99 02/27/19 17:59 97.5 F L 89 20 96/79 100 02/27/19 17:00 87 20 110/71 94 02/27/19 16:00 97.5 F L 86 20 105/69 98 02/27/19 15:59 103 02/27/19 15:00 97.5 F L 98 22 111/90 98 02/27/19 14:00 94 18 109/91 100 02/27/19 13:00 97.9 F 98 16 91/58 99 Intake and Output 02/27/19 02/28/19 02/28/19 23:59 07:59 15:59 Intake Total 505 / 2359 728 / 33315 58444 / 51155 Output Total 1326 / 1483 446 / 911 465 / 911 Balance -821 / 876 282 / 9967 9685 / 9967 Intake: IV Fluids 505 / 2359 728 / 51480 75284 / 31788 PrismaSATE BGK 4/2.5 5,000 ML @ 0 / 0 0 / 25382 83709 / 04716 1500 mls/hr CRRT CONT [facility] Rx#: [id number] Heparin 25,000 UNIT/250 ML D5W 250 / 500 225 / 225 25,000 unit In 250 ml @ 14 UNIT /KG/HR 20.829 mls/hr IVC . Q12H1M [facility] Rx#:[id number] Levophed 4 MG In Dextrose 5% 155 / 309 403 / 453 50 / 453 250 ML @ 2 MCG/MIN 7.62 mls/hr IVC CONT [facility] Rx#:[id number] Flagyl Premix 500 MG/100 ML 500 100 / 300 100 / 200 100 / 200 mg In 100 ml @ 100 mls/hr IVPB Q8HR [facility] Rx#:[id number] Output: Stool 0 / 0 Taryn 563 / 624 218 / 448 230 / 448 Rectal Tube 200 / 200 0 / 0 0 / 0 Catheter 0 / 35 10 / 15 5 / 15 Fluid Removed by Prismaflex 563 / 624 218 / 448 230 / 448 Other: Weight 153.2 kg 152 kg 153 kg Blood Glucose* 147 125 Patient Weight 02/28/19 23:59 Weight 153 kg - General Appearance General appearance: Present: well-developed, well-nourished, obese EENT: Present: ATNC Neck: Present: supple Respiratory: Present: course breath sounds Cardiology: Present: no edema, regular rate Dialysis Vascular Access: Venous Catheter Gastrointestinal: Present: no tenderness, obese Integumentary: Present: warm and dry Neurologic: Present: alert and oriented x3 Musculoskeletal: Present: no cyanosis Psychiatric: Present: mood/affect appropriate - Lab 02/28/19 04:02 02/28/19 04:02 Most recent lab results 02/28/19 04:02 Calcium 7.3 L Consult Discharge Plan - Plan Referrals: NONE,PCP [Primary Care Provider] -
[2019-02-28] MEDS ORDERED: 0.9 % Sodium Chloride 1,000 ML IVC SCH (12:30)
[2019-02-28] MEDS: Ondansetron 4 MG/2 ML VIAL IVP PRN ×2 (14:41→18:51)
[2019-02-28] MEDS ORDERED: Ondansetron 4 MG/2 ML VIAL IVP PRN (19:14)
[2019-02-28] MEDS ORDERED: *HR* Promethazine 25 MG/ML VIAL ONE (19:15)
[2019-02-28] MEDS: Fluticasone Propionate Nasal 50 MCG/SPRAY BOTTLE NS SCH (19:52)
[2019-02-28] MEDS: rOPINIRole 0.25 MG TABLET PO SCH (21:21)
[2019-02-28] MEDS: Insulin DETEMIR 100 UNIT/ML X5UNITS SQ SCH (21:23)
[2019-03-01] MEDS: Ipratropium/Albuterol Neb 3 ML IH SCH ×6 (00:44→19:54)
[2019-03-01] MEDS: PrismaSATE BGK 4/2.5 5,000 ML CRRT SCH ×11 (01:02→21:05)
[2019-03-01 04:09] LABS: Hematocrit 36.2 % (37.5-50.1); Mean Corpuscular HGB Conc 30.7 g/dL (31.6-35.5); Mean Corpuscular Hemoglobin 25.8 pg (28.0-33.3); Mean Corpuscular Volume 84.2 fL (83.0-100.0); Mean Platelet Volume 11.6 fL (9.4-12.4); Monocytes # 0.5 K/mcL (0.0-1.3); Nucleated Red Blood Cells 0.5 /100 WBC (0); Platelet Count 128 K/mcL (140-400); Red Cell Distribution Width 15.9 % (11.5-14.5)
[2019-03-01 04:27] LABS: Albumin 3.1 g/dL (3.5-5.7); Albumin/Globulin Ratio 1.6 (1.1-2.2); Bilirubin,Total 0.3 mg/dL (0.3-1.0); Calcium 7.6 mg/dL (8.6-10.3); Globulin 1.9 g/dL (2.4-3.5); Potassium 5.1 mEq/L (3.5-5.1)
[2019-03-01 04:35] LABS: Hemoglobin 11.1 g/dL (12.9-16.9); White Blood Count 12.9 K/mcL (4.3-11.1)
[2019-03-01 04:44] LABS: Lymphocytes # 0.3 K/mcL (0.6-4.6); Neutrophils # 12.1 K/mcL (1.6-8.9)
[2019-03-01 04:45] LABS: Anisocytosis 1+ (Not Present); Platelet Estimate Slight Decrease (Normal)
[2019-03-01] MEDS: MethylPREDNISolone 40 MG/ML VIAL IVP SCH ×2 (05:22→17:05)
[2019-03-01] MEDS: Albumin 25% 25gram/100mL 25 GM/100 ML IV.SOLN IVPB SCH ×2 (05:22→11:52)
[2019-03-01] MEDS ORDERED: *HR* Metoprolol 5 MG/5 ML VIAL IVP ONE (07:06)
[2019-03-01] MEDS: Insulin LISPRO 300 UNITS/3 ML VIAL SQ SCH ×4 (07:58→19:29)
[2019-03-01] MEDS: Aspirin 81 MG TAB.CHEW PO SCH (07:58)
[2019-03-01] MEDS: MetroNIDAZOLE 500 MG/100 ML 500 MG/100 ML BAG IVPB SCH ×3 (07:59→23:49)
[2019-03-01] MEDS: Furosemide 40 MG TABLET PO SCH ×2 (07:59→19:28)
[2019-03-01] MEDS: Vancomycin Oral Soln 125 MG/2.5 ML UDC PO SCH ×4 (08:00→19:29)
[2019-03-01] MEDS: Budesonide/Formoterol 160/4.5 1 PUFF INH IH SCH ×2 (08:01→19:54)
[2019-03-01] MEDS: Fluticasone Propionate Nasal 50 MCG/SPRAY BOTTLE NS SCH (08:15)
--- NOTE | 2019-03-01 09:23 | Nephrology Progress Note ---
Date of Encounter: 03/01/19 Time of Encounter: 09:23 - Assessment and Plan (1) Acute kidney injury superimposed on chronic kidney disease Current Visit: Yes Status: Acute This is a 68-year-old male with past medical history significant for diabetes and CHF who initially presented with altered mental status. Patient was diagnosed with pseudomembranous colitis, and his hospital course was compensated with septic shock for which she was admitted to the ICU. While admitted, JENN on CKD developed, and nephrology consulted for further management. - BUN/Cr = 35/1.96 today (Seems to be CKD Stage III at baseline) - Still with minimal urine output PLAN: Mr. Wright presents with acute kidney injury injury superimposed on chronic kidney disease. Acute kidney injury likely secondary to acute tubular necrosis and/or hypoperfusion in the setting of septic shock. Patient was started on renal replacement therapy on 02/27/19. BUN/Cr = 35/1.96. GFR = 34. Patient exhibiting improved kidney function. Otherwise hemodynamically stable. Remains afebrile. - Continue with continuous dialysis - Otherwise supportive care - Renally dose medications - Avoid nephrotoxins - Daily weights - Strict I's and O's - Continue with daily monitoring of kidney function. Daily BMPs (2) Colitis Current Visit: Yes Status: Acute - management per primary team (3) Diabetes Current Visit: No Status: Chronic Qualifiers: Diabetes mellitus type: type 2 Diabetes mellitus assisted insulin use: with long term care pharmacist use Diabetes mellitus complication status: with hyperglycemia Qualified Code(s): E11.65 - Type 2 diabetes mellitus with hyperglycemia; Z79.4 - rn long term care (current) use of insulin; Z79.4 - rn long term care (current) use of insulin; Z79.4 - assisted (current) use of insulin; Z79.4 - rn long term care (current) use of insulin (4) Morbid obesity with BMI of 45.0-49.9, adult Current Visit: No Status: Chronic Subjective Principal diagnosis: JENN Interval history: Patient seen and examined at bedside. No acute distress. Vital stable. Patient remains afebrile. Oxygen saturation appropriate on 3 L via nasal cannula. Making small amounts of urine. Otherwise on continued renal rep lacement therapy. Objective - Vital Signs Vital signs: Vital Signs Temp Pulse Resp BP Pulse Ox 03/01/19 09:00 120 20 144/113 98 03/01/19 08:00 97.9 F 123 20 139/115 95 03/01/19 07:00 132 20 116/55 96 03/01/19 06:00 87 18 87/73 99 03/01/19 05:00 87 18 111/72 100 03/01/19 04:00 97.0 F L 79 26 109/44 98 03/01/19 03:39 84 03/01/19 03:27 21 101/74 100 03/01/19 03:00 86 23 107/59 99 03/01/19 02:00 81 20 100/59 99 03/01/19 01:00 81 18 94/43 100 03/01/19 00:45 22 98 03/01/19 00:00 82 20 119/95 100 02/28/19 23:45 85 02/28/19 23:00 84 23 113/85 98 02/28/19 22:00 86 23 94/72 100 02/28/19 21:00 88 20 104/69 100 02/28/19 20:02 18 122/72 99 02/28/19 20:00 97.5 F L 92 19 122/72 100 02/28/19 19:36 93 02/28/19 19:00 96 22 116/65 99 02/28/19 18:00 91 22 91/67 95 02/28/19 17:00 88 24 106/59 98 02/28/19 16:54 14 103/63 100 02/28/19 16:00 98.5 F 90 29 87/64 98 02/28/19 15:00 98 23 106/56 96 02/28/19 14:00 91 24 102/84 98 02/28/19 13:00 86 22 113/78 95 02/28/19 12:00 98.6 F 86 22 96/54 100 02/28/19 11:48 20 99 02/28/19 11:00 88 20 99/54 100 02/28/19 10:00 94 22 71/65 99 Intake and Output 02/28/19 03/01/19 03/01/19 23:59 07:59 15:59 Intake Total 6585 / 41664 300 / 300 Output Total 97 / 1227 -12 11 Balance 6488 / 32957 312 / 289 - / 289 Intake: IV Fluids 6585 / 59061 300 / 300 PrismaSATE BGK 4/2.5 5,000 ML @ 5000 / 89318 0 / 0 1500 mls/hr CRRT CONT EARLENE Rx#: [id number] 0.9 % Sodium Chloride 1,000 ML 1000 / 1000 @ 250 mls/hr IVC .Q4H EARLENE Rx#: [id number] Heparin 25,000 UNIT/250 ML D5W 103 / 475 25,000 unit In 250 ml @ 14 UNIT /KG/HR 20.829 mls/hr IVC . Q12H1M EARLENE Rx#:[id number] Levophed 4 MG In Dextrose 5% 282 / 735 250 ML @ 2 MCG/MIN 7.62 mls/hr IVC CONT EARLENE Rx#:[id number] Flexbumin 25 gm In 100 ml @ 60 100 / 200 200 / 200 mls/hr IVPB Q6HR EARLENE Rx#: [id number] Flagyl Premix 500 MG/100 ML 500 100 / 300 100 / 100 mg In 100 ml @ 100 mls/hr IVPB Q8HR EARLENE Rx#:[id number] Output: Taryn 53 / 611 15 / 15 Rectal Tube 0 / 0 0 / 0 0 / 0 Catheter 0 / 10 10 / 10 Fluid Removed by Prismaflex 34 / 591 -27 / -14 Other: Weight 153 kg 153 kg 153 kg Blood Glucose* 176 Patient Weight 03/01/19 23:59 Weight 153 kg - General Appearance General appearance: Present: well-developed, well-nourished, appears started age EENT: Present: ATNC, PERRL Respiratory: Present: clear Additional Comments: Difficult to auscultate due to body habitus Cardiology: Present: edema, regular rate, regular rhythm, normal S1, normal S2 Gastrointestinal: Present: normoactive bowel sounds, no tenderness, no guarding, no organomegaly, no masses Integumentary: Present: warm and dry Neurologic: Present: alert and oriented x3 Musculoskeletal: Present: erythema Additional Comments: 2+ pitting edema bilateral lower extremities Psychiatric: Present: mood/affect appropriate, cooperative - Lab 03/01/19 04:01 03/01/19 04:01 Most recent lab results 03/01/19 04:01 Calcium 7.6 L Consult Discharge Plan - Plan Referrals: NONE,PCP [Primary Care Provider] -
--- NOTE | 2019-03-01 11:08 | Pulmonology Progress Note ---
Date of Encounter: 03/01/19 Time of Encounter: 11:03 Assessment and Plan (1) Septic shock Current Visit: Yes Status: Acute Was admitted to the hospital due to acute on chronic respiratory failure Likely secondary to colitis versus pneumonia Did not respond to fluid bolus Has a central venous catheter placed by Dr. Jefferson Titrating down levophed Continue to monitor keep MAP above 65 -Continue oral vancomycin and IV Flagyl day 4 -Blood pressure improving today without any vasopressors (2) Acute and chronic respiratory failure with hypoxia Current Visit: No Status: Acute Mr. Wright was presented to the ER overnight due to hypoxia At presentation he was on 2 L of nasal cannula oxygen saturation in the 70s Continue scheduled DuoNeb Continue scheduled Symbicort Continue 40 mg IV every 12 hour Solu-Medrol, will consider stopping after total 5 days, 03/02/19 Holding further antibiotics at this time and will continue to treat underlying colitis Continue intermittent BiPAP (3) DVT (deep venous thrombosis) Current Visit: Yes Status: Acute Was complaining of bilateral lower extremity pain at presentation Bilateral lower leg Doppler shows DVT in right and left lower extremities Continue IV heparin drip Qualifiers: DVT location: lower extremity Affected thrombotic vein of extremity: tibial Chronicity: acute Laterality: bilateral Qualified Code(s): I82.443 - Acute embolism and thrombosis of tibial vein, bilateral (4) Pancolitis Current Visit: Yes Status: Acute Presented to the ED due to shortness of breath White blood cell at presentation was 29; CT abdomen pelvis was ordered in the ER CT of the abdomen and pelvis shows pseudomembranous pancolitis GI stool panel shows C. difficile colitis Currently in septic shock not responding to IV fluid requiring pressors Will treat for fulminant C. difficile colitis with IV Flagyl and 500 mg 4 times a day oral vancomycin (5) Hyperkalemia Current Visit: No Status: Acute Presented with potassium of 5.4 potassium this morning 5.1 Nephrology consulted On continuous renal presented therapy (6) Acute kidney injury Current Visit: Yes Status: Acute Presented with creatinine of 2.75 History of chronic Harper This morning creatinine 1.96 Currently not producing significant urine Nephrology consulted On continuous renal replacement therapy (7) Acute metabolic encephalopathy Current Visit: Yes Status: Acute Resolved. Presented with altered mental status and shortness of breath Secondary to electrolyte abnormalities and acute renal failure, BUN noted to be 95 and potassium of 6.3 This morning awake and alert oriented to person, place and time CRRT plan for today (8) Tachycardia Current Visit: Yes Status: Acute Sinus tachycardia Concerning for PE Currently on heparin for bilateral DVT Will restart home Coreg for tachycardia (9) COPD exacerbation Current Visit: Yes Status: Acute History of COPD Presented to the ED with oxygen saturations in the 70s with home 2 L Continue intermittent BiPAP Continue scheduled DuoNeb, Symbicort and IV Solu-Medrol 40 every 12 hours stop after total of 5 days (10) CHF (congestive heart failure) Current Visit: No Status: Chronic Previous echo on 11/28/18 showing EF 50% with moderate aortic stenosis with moderate aortic regurg Presented with troponin of 0.1 Repeat echo today showed suboptimal with poor assessment of LV function and wall motion even with Definity Continue to hold furosemide given current volume status Qualifiers: Heart failure type: diastolic Heart failure chronicity: acute on chronic Qualified Code(s): I50.33 - Acute on chronic diastolic (congestive) heart failure (11) Diabetes Current Visit: No Status: Chronic History of diabetes on insulin at home Holding long-acting insulin given within normal limits glucose Medium dose sliding scale and at bedtime ordered Will resume long-acting insulin once diet resumes Qualifiers: Diabetes mellitus type: type 2 Diabetes mellitus exterminator termite insulin use: with exterminator termite use Diabetes mellitus complication status: with hyperglycemia Qualified Code(s): E11.65 - Type 2 diabetes mellitus with hyperglycemia; Z79.4 - intermodal dispatcher (current) use of insulin; Z79.4 - intermodal dispatcher (current) use of insulin; Z79.4 - care home (current) use of insulin; Z79.4 - care home (current) use of insulin (12) Abnormal urinalysis Current Visit: Yes Status: Acute At presentation urinalysis showed many bacteria and moderate leukocyte esterase Does have history of chronic Harper Previously has had MDRO oh Pseudomonas aeruginosa this on 12/18/18 and 02/19/19 Holding any treatments at this time. Waiting for final speciation (13) Cirrhosis Current Visit: Yes Status: Acute CT abdomen noted nodularity of liver suspected cirrhosis Ongoing hypotension likely chronic due to cirrhosis -Received 25 mg every 6 hours have albumin yesterday -Midodrine 3 times a day ordered Qualifiers: Hepatic cirrhosis type: unspecified hepatic cirrhosis Ascites presence: unspecified Qualified Code(s): K74.60 - Unspecified cirrhosis of liver (14) DVT prophylaxis Current Visit: No Status: Chronic On heparin drip Subjective Principal diagnosis: JENN Interval history: Mr. Wright was seen at bedside this morning. He was resting comfortably and denied any complaints this morning. He denied fever, chills, shortness of breath, chest pain, nausea or emesis. Objective PUL Vital signs: Last Vital Signs Temp 97.9 F 03/01/19 08:00 Pulse 120 03/01/19 10:00 Resp 18 03/01/19 10:00 BP 113/86 03/01/19 10:00 Pulse Ox 100 03/01/19 10:00 General appearance: no acute distress, alert Eyes: nonicteric ENT: oropharynx moist Effort: normal Auscultation: bilateral: clear Cardiovascular: other (sinus tachycardia ) Gastrointestinal: hypoactive bowel sounds, soft, non-tender Integumentary: normal Extremities: no edema, pulses normal pupils equal and round, motor strength normal and symmetric, other mood appropriate, affect normal Results - Laboratory Findings CBC and BMP: 03/01/19 04:01 03/01/19 04:01 ABG ABG pH 7.35 pH Units (7.32-7.45) 02/26/19 20:38 ABG pCO2 33 mmHg (35-45) L 02/26/19 20:38 ABG pO2 220 mmHg (85-104) H 02/26/19 20:38 ABG O2 Saturation 100 % (95-98) H 02/26/19 20:38 PT/INR, D-dimer PT 12.6 Seconds (9.4-12.1) H 02/25/19 23:49 D-Dimer 2199 ng/mLFEU (0-500) H 02/25/19 23:49 Abnormal lab findings: Abnormal lab results WBC 12.9 K/mcL (4.3-11.1) H D 03/01/19 04:01 RBC 5.69 M/mcL (4.19-5.50) H 02/28/19 04:02 Hgb 11.1 g/dL (12.9-16.9) L D 03/01/19 04:01 Hct 36.2 % (37.5-50.1) L 03/01/19 04:01 MCH 25.8 pg (28.0-33.3) L 03/01/19 04:01 MCHC 30.7 g/dL (31.6-35.5) L 03/01/19 04:01 RDW 15.9 % (11.5-14.5) H 03/01/19 04:01 Plt Count 128 K/mcL (140-400) L 03/01/19 04:01 Band Neutrophils % 6.0 % (0-4) H 03/01/19 04:01 Metamyelocytes % 1.0 % (0) H 02/26/19 14:24 Myelocytes % 1.0 % (0) H 02/26/19 14:24 Neutrophils # 12.1 K/mcL (1.6-8.9) H 03/01/19 04:01 Lymphocytes # 0.3 K/mcL (0.6-4.6) L 03/01/19 04:01 Monocytes # 3.2 K/mcL (0.0-1.3) H 02/27/19 05:45 Nucleated RBCs/100 WBC 0.5 /100 WBC (0) H 03/01/19 04:01 Reactive Lymphocytes Present (Not Present) A 02/28/19 04:02 Platelet Estimate Slight Decrease (Normal) L 03/01/19 04:01 Polychromasia 1+ (Not Present) A 02/26/19 14:24 Anisocytosis 1+ (Not Present) A 03/01/19 04:01 Ovalocytes 1+ (Not Present) A 02/27/19 05:45 PT 12.6 Seconds (9.4-12.1) H 02/25/19 23:49 D-Dimer 2199 ng/mLFEU (0-500) H 02/25/19 23:49 Heparin Anti-Xa, Unfract 1.03 IU/mL (0.30-0.70) H* 02/28/19 11:30 ABG pCO2 33 mmHg (35-45) L 02/26/19 20:38 ABG pO2 220 mmHg (85-104) H 02/26/19 20:38 ABG HCO3 18 mEq/L (21-27) L 02/26/19 20:38 ABG Total CO2 19 mEq/L (20-26) L 02/26/19 20:38 ABG O2 Saturation 100 % (95-98) H 02/26/19 20:38 ABG Base Excess -6 mEq/L (-2 to 3) L 02/26/19 20:38 VBG pCO2 39 mmHg (41-51) L 02/28/19 11:47 VBG pO2 53 mmHg (25-50) H 02/28/19 11:47 Sodium 133 mEq/L (136-145) L 02/28/19 04:02 Potassium 5.4 mEq/L (3.5-5.1) H 02/28/19 04:02 Chloride 97 mEq/L (98-107) L 02/27/19 05:45 Carbon Dioxide 20 mEq/L (23-29) L 02/28/19 04:02 BUN 35 mg/dL (8-23) H 03/01/19 04:01 Creatinine 1.96 mg/dL (0.70-1.30) H 03/01/19 04:01 Est GFR ( Amer) 42 (> 60) L 03/01/19 04:01 Est GFR (Non-Af Amer) 34 (> 60) L 03/01/19 04:01 BUN/Creatinine Ratio 28 (6-26) H 02/26/19 07:18 Glucose 188 mg/dL (70-105) H 03/01/19 04:01 POC Glucose 175 mg/dL (70-99) H 02/28/19 19:40 Calculated Osmolality 308 (280-300) H 02/27/19 05:45 Calcium 7.6 mg/dL (8.6-10.3) L 03/01/19 04:01 AST 50 Units/L (13-39) H 02/28/19 04:02 Troponin I 0.09 ng/mL (< 0.04) H* 02/26/19 14:24 B-Natriuretic Peptide 244 pg/mL (Less than 100) H 02/25/19 23:49 Serum Total Protein 5.0 g/dL (6.4-8.9) L 03/01/19 04:01 Albumin 3.1 g/dL (3.5-5.7) L 03/01/19 04:01 Globulin 1.9 g/dL (2.4-3.5) L 03/01/19 04:01 Albumin/Globulin Ratio 0.9 (1.1-2.2) L 02/28/19 04:02 Procalcitonin 12.90 ng/mL (0.00-0.15) H 02/27/19 05:45 Ur Specimen Adequacy See below A 02/26/19 01:44 Urine Clarity Turbid (Clear) A 02/26/19 01:44 Urine Protein 100 mg/dL (Neg-Trace) H 02/26/19 01:44 Urine Blood Large (Negative) H 02/26/19 01:44 Urine Bilirubin Moderate (Negative) H 02/26/19 01:44 Ur Leukocyte Esterase Moderate (Negative) H 02/26/19 01:44 Urine Microscopic RBC 15-30 per hpf (0-3) H 02/26/19 01:44 Urine Microscopic WBC 50-100 per hpf (0-3) H 02/26/19 01:44 Urine Bacteria Many per hpf (None-Few) H 02/26/19 01:44 Urine Yeast Few per hpf (None Seen) H 02/26/19 01:44 Ur Culture Indicated? YES (NO) A 02/26/19 01:44 Protein/Creatinin Ratio 1.03 mg/mg (0.00-0.20) H 02/27/19 11:10 Urine Total Protein 216 mg/dL (1-14) H 02/27/19 11:10 Nasal Screen MRSA (PCR) DETECTED (Not Detect) A 02/27/19 08:18 Stl C. diff Tox B Gene Positive (Negative) A 02/27/19 23:30 Vancomycin Trough 18 mcg/mL (5-10) H 02/27/19 05:45 - Microbiology Findings Microbiology Findings: Microbiology, Last 48 Hours 02/26/19 01:44 Urine Culture - Final Urine,Catheterized (Straight) P. aeruginosa MDRO 02/27/19 23:30 Clostridium difficile Toxin A & B - Final Stool - Clinical Findings Intake & Output: Intake & Output 02/28/19 03/01/19 03/01/19 23:59 07:59 15:59 Intake Total 5737 / 63880 300 / 300 Output Total 97 / 1227 - Balance 9551 / 16700 312 / 289 - / Weight 153 kg 153 kg 153 kg Consult Discharge Plan - Plan Referrals: NONE,PCP [Primary Care Provider] -
[2019-03-01] MEDS: Norepinephrine 4 MG in D5% in Water 250 ML IVC SCH (11:54)
[2019-03-01] MEDS: Neosporin OINT 15 GM TUBE TP SCH (17:06)
[2019-03-01] MEDS: rOPINIRole 0.25 MG TABLET PO SCH (19:28)
[2019-03-01] MEDS: Insulin DETEMIR 100 UNIT/ML X5UNITS SQ SCH (19:28)
[2019-03-01] MEDS: Heparin 25,000 UNIT/250 ML D5W 25,000 UNIT/250 ML IV.SOLN IVC SCH (21:06)
[2019-03-01] MEDS ORDERED: *HR* LORazepam 2 MG/ML VIAL IVP ONE (22:56)
[2019-03-01] MEDS ORDERED: *HR* LORazepam 2 MG/ML VIAL ONE (22:58)
[2019-03-02] MEDS: Ipratropium/Albuterol Neb 3 ML IH SCH ×7 (00:05→23:49)
[2019-03-02] MEDS: PrismaSATE BGK 4/2.5 5,000 ML CRRT SCH ×3 (00:24→04:15)
[2019-03-02] MEDS ORDERED: 0.9 % Sodium Chloride 500 ML IVC ONE (01:01)
[2019-03-02] MEDS ORDERED: 0.9 % Sodium Chloride 500 ML ONE (01:13)
[2019-03-02] MEDS: Heparin 25,000 UNIT/250 ML D5W 25,000 UNIT/250 ML IV.SOLN IVC SCH ×2 (01:14→20:18)
[2019-03-02 04:27] LABS: Hemoglobin 12.4 g/dL (12.9-16.9); Mean Corpuscular HGB Conc 30.2 g/dL (31.6-35.5); Mean Corpuscular Hemoglobin 25.7 pg (28.0-33.3); Mean Corpuscular Volume 85.1 fL (83.0-100.0); Mean Platelet Volume 10.9 fL (9.4-12.4); Nucleated Red Blood Cells 0.9 /100 WBC (0); Platelet Count 123 K/mcL (140-400); Red Blood Count 4.82 M/mcL (4.19-5.50); Red Cell Distribution Width 15.6 % (11.5-14.5); White Blood Count 14.2 K/mcL (4.3-11.1)
[2019-03-02 04:46] LABS: Lymphocytes # 0.9 K/mcL (0.6-4.6); Monocytes # 0.3 K/mcL (0.0-1.3); Neutrophils # 13.1 K/mcL (1.6-8.9)
[2019-03-02 04:48] LABS: Alanine Aminotransferase 16 Units/L (7-52); Albumin/Globulin Ratio 1.5 (1.1-2.2); Alkaline Phosphatase 60 Units/L (34-104); Aspartate Amino Transferase 33 Units/L (13-39); BUN/Creatinine Ratio 18 (6-26); Bilirubin,Total 0.4 mg/dL (0.3-1.0); Blood Urea Nitrogen 25 mg/dL (8-23); Calcium 7.5 mg/dL (8.6-10.3); Carbon Dioxide 25 mEq/L (23-29); Chloride 103 mEq/L (98-107); Glucose 138 mg/dL (70-105); Osmolality,Calculated 289 (280-300); Potassium 4.9 mEq/L (3.5-5.1); Sodium 136 mEq/L (136-145); eGFR For African Americans > 60 (> 60); eGFR For Non-African Americans 50 (> 60)
[2019-03-02] MEDS: MethylPREDNISolone 40 MG/ML VIAL IVP SCH ×2 (06:03→17:49)
[2019-03-02] MEDS: *HR* Heparin 5,000 UNIT/ML VIAL IV PRN (06:03)
[2019-03-02] MEDS: Budesonide/Formoterol 160/4.5 1 PUFF INH IH SCH ×2 (07:20→20:03)
[2019-03-02] MEDS ORDERED: traMADol 50 MG TABLET PO PRN (07:36)
--- NOTE | 2019-03-02 07:43 | Pulmonology Progress Note ---
Date of Encounter: 03/02/19 Time of Encounter: 07:43 Assessment and Plan (1) Septic shock Current Visit: Yes Status: Resolved Resolved. Was admitted to the hospital due to acute on chronic respiratory failure Likely secondary to colitis versus pneumonia Did not respond to fluid initially Had a central venous catheter placed by Dr. Jefferson Off pressors Continue to monitor keep MAP above 65 -Continue oral vancomycin and IV Flagyl day 4 -Blood pressure improving today without any vasopressors (2) Acute and chronic respiratory failure with hypoxia Current Visit: No Status: Acute Mr. Wright was presented to the ER overnight due to hypoxia At presentation he was on 2 L of nasal cannula oxygen saturation in the 70s Continue scheduled DuoNeb Continue scheduled Symbicort Continue 40 mg IV every 12 hour Solu-Medrol, will consider stopping after total 5 days, 03/02/19 Holding further antibiotics at this time and will continue to treat underlying colitis Tolerating 3 L nasal cannula (3) DVT (deep venous thrombosis) Current Visit: Yes Status: Acute Was complaining of bilateral lower extremity pain at presentation Bilateral lower leg Doppler shows DVT in right and left lower extremities Continue IV heparin drip Qualifiers: DVT location: lower extremity Affected thrombotic vein of extremity: tibial Chronicity: acute Laterality: bilateral Qualified Code(s): I82.443 - Acute embolism and thrombosis of tibial vein, bilateral (4) Pancolitis Current Visit: Yes Status: Acute Presented to the ED due to shortness of breath White blood cell at presentation was 29; CT abdomen pelvis was ordered in the ER CT of the abdomen and pelvis shows pseudomembranous pancolitis GI stool panel shows C. difficile colitis Currently in septic shock not responding to IV fluid requiring pressors Will treat for fulminant C. difficile colitis with IV Flagyl and 500 mg 4 times a day oral vancomycin (5) Hyperkalemia Current Visit: No Status: Resolved Presented with potassium of 5.4 potassium this morning 4.9 Nephrology consulted On continuous renal presented therapy (6) Acute kidney injury Current Visit: Yes Status: Acute Presented with creatinine of 2.75 History of chronic Harper This morning creatinine 1. Currently not producing significant urine Nephrology consulted On continuous renal replacement therapy (7) Acute metabolic encephalopathy Current Visit: Yes Status: Acute Resolved. Presented with altered mental status and shortness of breath Was likely secondary to electrolyte abnormalities and acute renal failure, on 8/5/19 BUN noted to be 95 and potassium of 6.3 This morning awake and alert oriented to person, place and time Agitated likely secondary to delirium from ativan CRRT plan for today (8) Tachycardia Current Visit: Yes Status: Acute Sinus tachycardia Likely multifactorial from agitation, pain and possible PE Currently on heparin for bilateral DVT 25 mg by mouth metoprolol twice a day (9) COPD exacerbation Current Visit: Yes Status: Acute History of COPD Presented to the ED with oxygen saturations in the 70s with home 2 L Continue intermittent BiPAP Continue scheduled DuoNeb, Symbicort and IV Solu-Medrol 40 every 12 hours stop after total of 5 days (10) CHF (congestive heart failure) Current Visit: No Status: Chronic Previous echo on 11/28/18 showing EF 50% with moderate aortic stenosis with moderate aortic regurg Presented with troponin of 0.1 Repeat echo today showed suboptimal with poor assessment of LV function and wall motion even with Definity Continue to hold furosemide given current volume status Qualifiers: Heart failure type: diastolic Heart failure chronicity: acute on chronic Qualified Code(s): I50.33 - Acute on chronic diastolic (congestive) heart failure (11) Diabetes Current Visit: No Status: Chronic History of diabetes on insulin at home Holding long-acting insulin given within normal limits glucose Medium dose sliding scale and at bedtime ordered Will resume long-acting insulin once diet resumes Qualifiers: Diabetes mellitus type: type 2 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: with 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 Diabetes mellitus complication status: with hyperglycemia Qualified Code(s): E11.65 - Type 2 diabetes mellitus with hyperglycemia; Z79.4 - [facility] (current) use of insulin; Z79.4 - [facility] (current) use of insulin; Z79.4 - [facility] (current) use of insulin; Z79.4 - [facility] (current) use of insulin (12) Cirrhosis Current Visit: Yes Status: Acute CT abdomen noted nodularity of liver suspected cirrhosis Ongoing hypotension likely chronic due to cirrhosis -Received 25 mg every 6 hours have albumin yesterday for better pressure control -Midodrine 3 times a day ordered Qualifiers: Hepatic cirrhosis type: unspecified hepatic cirrhosis Ascites presence: unspecified Qualified Code(s): K74.60 - Unspecified cirrhosis of liver (13) Insomnia Current Visit: Yes Status: Chronic History of insomnia on trazodone at home Please avoid Ativan or Haldol as it makes him more to serious in the morning Start home trazodone Qualifiers: Insomnia type: unspecified Qualified Code(s): G47.00 - Insomnia, unspecified (14) DVT prophylaxis Current Visit: No Status: Chronic On heparin drip Subjective Principal diagnosis: JENN Interval history: Mr. Wright was seen at bedside this morning. He is complaining of abdominal pain in bilateral lower leg. He denied fever, chills, shortness of breath, chest pain, nausea or emesis. Objective PUL Vital signs: Last Vital Signs Temp 97.6 F 03/02/19 07:15 Pulse 129 03/02/19 06:00 Resp 20 03/02/19 07:24 BP 104/74 03/02/19 06:00 Pulse Ox 92 03/02/19 07:24 General appearance: no acute distress, alert Eyes: nonicteric ENT: oropharynx moist Neck: supple Effort: mildly labored Auscultation: bilateral: diminished breath sounds (lower lung bases ) Cardiovascular: other (tachycardia) Gastrointestinal: hypoactive bowel sounds, soft, tender, non-distended Integumentary: normal Extremities: no cyanosis, no edema Musculoskeletal: no deformities non-focal exam, pupils equal and round anxious Results - Laboratory Findings CBC and BMP: 03/02/19 04:15 03/02/19 04:15 ABG ABG pH 7.35 pH Units (7.32-7.45) 02/26/19 20:38 ABG pCO2 33 mmHg (35-45) L 02/26/19 20:38 ABG pO2 220 mmHg (85-104) H 02/26/19 20:38 ABG O2 Saturation 100 % (95-98) H 02/26/19 20:38 PT/INR, D-dimer PT 12.6 Seconds (9.4-12.1) H 02/25/19 23:49 D-Dimer 2199 ng/mLFEU (0-500) H 02/25/19 23:49 Abnormal lab findings: Abnormal lab results WBC 14.2 K/mcL (4.3-11.1) H 03/02/19 04:15 RBC 5.69 M/mcL (4.19-5.50) H 02/28/19 04:02 Hgb 12.4 g/dL (12.9-16.9) L 03/02/19 04:15 Hct 36.2 % (37.5-50.1) L 03/01/19 04:01 MCH 25.7 pg (28.0-33.3) L 03/02/19 04:15 MCHC 30.2 g/dL (31.6-35.5) L 03/02/19 04:15 RDW 15.6 % (11.5-14.5) H 03/02/19 04:15 Plt Count 123 K/mcL (140-400) L 03/02/19 04:15 Band Neutrophils % 6.0 % (0-4) H 03/01/19 04:01 Metamyelocytes % 1.0 % (0) H 02/26/19 14:24 Myelocytes % 1.0 % (0) H 02/26/19 14:24 Neutrophils # 13.1 K/mcL (1.6-8.9) H 03/02/19 04:15 Lymphocytes # 0.3 K/mcL (0.6-4.6) L 03/01/19 04:01 Monocytes # 3.2 K/mcL (0.0-1.3) H 02/27/19 05:45 Nucleated RBCs/100 WBC 0.9 /100 WBC (0) H 03/02/19 04:15 Reactive Lymphocytes Present (Not Present) A 02/28/19 04:02 Platelet Estimate Slight Decrease (Normal) L 03/01/19 04:01 Polychromasia 1+ (Not Present) A 02/26/19 14:24 Anisocytosis 1+ (Not Present) A 03/01/19 04:01 Ovalocytes 1+ (Not Present) A 02/27/19 05:45 PT 12.6 Seconds (9.4-12.1) H 02/25/19 23:49 D-Dimer 2199 ng/mLFEU (0-500) H 02/25/19 23:49 Heparin Anti-Xa, Unfract 1.03 IU/mL (0.30-0.70) H* 02/28/19 11:30 ABG pCO2 33 mmHg (35-45) L 02/26/19 20:38 ABG pO2 220 mmHg (85-104) H 02/26/19 20:38 ABG HCO3 18 mEq/L (21-27) L 02/26/19 20:38 ABG Total CO2 19 mEq/L (20-26) L 02/26/19 20:38 ABG O2 Saturation 100 % (95-98) H 02/26/19 20:38 ABG Base Excess -6 mEq/L (-2 to 3) L 02/26/19 20:38 VBG pCO2 39 mmHg (41-51) L 02/28/19 11:47 VBG pO2 53 mmHg (25-50) H 02/28/19 11:47 Sodium 133 mEq/L (136-145) L 02/28/19 04:02 Potassium 5.4 mEq/L (3.5-5.1) H 02/28/19 04:02 Chloride 97 mEq/L (98-107) L 02/27/19 05:45 Carbon Dioxide 20 mEq/L (23-29) L 02/28/19 04:02 BUN 25 mg/dL (8-23) H 03/02/19 04:15 Creatinine 1.42 mg/dL (0.70-1.30) H 03/02/19 04:15 Est GFR ( Amer) 42 (> 60) L 03/01/19 04:01 Est GFR (Non-Af Amer) 50 (> 60) L 03/02/19 04:15 BUN/Creatinine Ratio 28 (6-26) H 02/26/19 07:18 Glucose 138 mg/dL (70-105) H 03/02/19 04:15 POC Glucose 147 mg/dL (70-99) H 03/01/19 19:24 Calculated Osmolality 308 (280-300) H 02/27/19 05:45 Calcium 7.5 mg/dL (8.6-10.3) L 03/02/19 04:15 AST 50 Units/L (13-39) H 02/28/19 04:02 Troponin I 0.09 ng/mL (< 0.04) H* 02/26/19 14:24 B-Natriuretic Peptide 244 pg/mL (Less than 100) H 02/25/19 23:49 Serum Total Protein 5.0 g/dL (6.4-8.9) L 03/02/19 04:15 Albumin 3.0 g/dL (3.5-5.7) L 03/02/19 04:15 Globulin 2.0 g/dL (2.4-3.5) L 03/02/19 04:15 Albumin/Globulin Ratio 0.9 (1.1-2.2) L 02/28/19 04:02 Procalcitonin 12.90 ng/mL (0.00-0.15) H 02/27/19 05:45 Ur Specimen Adequacy See below A 02/26/19 01:44 Urine Clarity Turbid (Clear) A 02/26/19 01:44 Urine Protein 100 mg/dL (Neg-Trace) H 02/26/19 01:44 Urine Blood Large (Negative) H 02/26/19 01:44 Urine Bilirubin Moderate (Negative) H 02/26/19 01:44 Ur Leukocyte Esterase Moderate (Negative) H 02/26/19 01:44 Urine Microscopic RBC 15-30 per hpf (0-3) H 02/26/19 01:44 Urine Microscopic WBC 50-100 per hpf (0-3) H 02/26/19 01:44 Urine Bacteria Many per hpf (None-Few) H 02/26/19 01:44 Urine Yeast Few per hpf (None Seen) H 02/26/19 01:44 Ur Culture Indicated? YES (NO) A 02/26/19 01:44 Protein/Creatinin Ratio 1.03 mg/mg (0.00-0.20) H 02/27/19 11:10 Urine Total Protein 216 mg/dL (1-14) H 02/27/19 11:10 Nasal Screen MRSA (PCR) DETECTED (Not Detect) A 02/27/19 08:18 Stl C. diff Tox B Gene Positive (Negative) A 02/27/19 23:30 Vancomycin Trough 18 mcg/mL (5-10) H 02/27/19 05:45 - Microbiology Findings Microbiology Findings: Microbiology, Last 48 Hours 02/26/19 01:44 Urine Culture - Final Urine,Catheterized (Straight) P. aeruginosa MDRO 02/27/19 23:30 Clostridium difficile Toxin A & B - Final Stool - Clinical Findings Intake & Output: Intake & Output 03/01/19 03/01/19 03/02/19 15:59 23:59 07:59 Intake Total 100 / 750 350 / 750 600 / 600 Output Total 46 / 57 23 / 57 50 / 50 Balance 54 / 693 327 / 693 550 / 550 Weight 153 kg 153 kg 153 kg Consult Discharge Plan - Plan Referrals: NONE,PCP [Primary Care Provider] -
[2019-03-02] MEDS ORDERED: NON-FORMULARY MEDICATION 1 EACH EACH (Trazodone Hcl 100 MG) PO SCH (07:45)
[2019-03-02] MEDS: Vancomycin Oral Soln 125 MG/2.5 ML UDC PO SCH ×4 (08:18→20:19)
[2019-03-02] MEDS: MetroNIDAZOLE 500 MG/100 ML 500 MG/100 ML BAG IVPB SCH ×2 (08:19→17:50)
[2019-03-02] MEDS: Aspirin 81 MG TAB.CHEW PO SCH (08:25)
[2019-03-02] MEDS: Insulin LISPRO 300 UNITS/3 ML VIAL SQ SCH ×4 (08:27→20:22)
[2019-03-02] MEDS: Fluticasone Propionate Nasal 50 MCG/SPRAY BOTTLE NS SCH (08:28)
[2019-03-02] MEDS: Furosemide 40 MG TABLET PO SCH (08:29)
[2019-03-02] MEDS: Norepinephrine 4 MG in D5% in Water 250 ML IVC SCH ×2 (08:29→15:45)
[2019-03-02] MEDS: Neosporin OINT 15 GM TUBE TP SCH (08:29)
[2019-03-02] MEDS ORDERED: predniSONE 20 MG TABLET PO SCH (09:00)
[2019-03-02] MEDS ORDERED: Dexmedetomidine HCl 400 MCG/100 ML MLS IVC ONE (09:12)
[2019-03-02] MEDS: Dexmedetomidine HCl 400 MCG/100 ML MLS IVC SCH ×4 (09:15→22:55)
--- NOTE | 2019-03-02 10:52 | Nephrology Progress Note ---
Date of Encounter: 03/02/19 Time of Encounter: 10:49 - Assessment and Plan (1) Acute kidney injury superimposed on chronic kidney disease Current Visit: Yes Status: Acute The patient has multifactorial acute kidney injury superimposed on chronic kidney disease. The patient is critically ill and is on vasopressors. He is oligo/anuric with no significant improvement in his renal function. CVVHDF discontinued yesterday. No need for dialysis today. Monitor daily for dialysis need. Renal ultrasound negative for obstruction. No need for renal biopsy at this time. Electrolytes improved on CVVHDF. Continue to maintain supportive care. I recommend adjusting medications for renal function I recommend avoiding unnecessary nephrotoxins. 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 Wright remains on supplemental oxygen. He is resting comfortably. . Objective - Vital Signs Vital signs: Vital Signs Temp Pulse Resp BP Pulse Ox 03/02/19 10:00 118 22 102/76 96 03/02/19 09:00 138 22 97/66 97 03/02/19 08:00 139 20 96/70 93 03/02/19 07:24 20 92 03/02/19 07:15 97.6 F 03/02/19 07:00 133 20 89/67 97 03/02/19 06:00 129 20 104/74 100 03/02/19 05:00 129 20 116/79 100 03/02/19 04:02 20 96 03/02/19 04:00 97.6 F 131 20 109/74 96 03/02/19 03:10 130 03/02/19 03:00 130 18 99/70 100 03/02/19 02:00 132 18 140/94 100 03/02/19 01:00 131 17 81/40 99 03/02/19 00:05 17 149/104 99 03/02/19 00:00 97.6 F 129 24 149/104 99 03/01/19 23:00 128 24 129/94 99 03/01/19 22:00 128 22 128/64 99 03/01/19 21:00 126 18 121/76 94 03/01/19 20:00 97.6 F 124 18 96/52 93 03/01/19 19:55 17 85/76 93 03/01/19 19:53 124 03/01/19 19:00 125 16 103/80 95 03/01/19 18:00 122 18 118/95 95 03/01/19 17:00 131 18 134/91 95 03/01/19 16:00 97.2 F L 124 18 107/88 100 03/01/19 15:49 18 98 03/01/19 15:00 121 18 94/79 97 03/01/19 14:00 123 18 124/71 99 03/01/19 13:00 121 18 96/83 98 03/01/19 12:00 97.0 F L 128 20 120/62 96 03/01/19 11:34 20 95 03/01/19 11:00 122 20 114/69 95 Intake and Output 03/01/19 03/02/19 03/02/19 23:59 07:59 15:59 Intake Total 350 / 850 600 / 700 100 / 700 Output Total 23 / 57 50 / 50 Balance 327 / 793 550 / 650 100 / 650 Intake: IV Fluids 350 / 850 600 / 700 100 / 700 PrismaSATE BGK 4/2.5 5,000 ML @ 0 / 0 0 / 0 1500 mls/hr CRRT CONT [facility] Rx#: [id number] 0.9 % Sodium Chloride 500 ML @ 500 / 500 999 mls/hr IVC .Q31M ONE Rx#: [id number] Heparin 25,000 UNIT/250 ML D5W 250 / 250 25,000 unit In 250 ml @ 14 UNIT /KG/HR 20.829 mls/hr IVC . Q12H1M [facility] Rx#:[id number] Flagyl Premix 500 MG/100 ML 500 100 / 300 100 / 200 100 / 200 mg In 100 ml @ 100 mls/hr IVPB Q8HR [facility] Rx#:[id number] Oral 0 / 0 0 / 0 Output: Rectal Tube 0 / 0 0 / 0 Catheter 50 / 50 Fluid Removed by Prismaflex 0 / 0 Other: Weight 153 kg 153 kg Blood Glucose* 147 125 Patient Weight 03/02/19 23:59 Weight 153 kg - General Appearance General appearance: Present: well-developed, well-nourished EENT: Present: ATNC Neck: Present: supple Additional Comments: tachycardia Integumentary: Present: warm and dry Additional Comments: Asleep. Psychiatric: Present: mood/affect appropriate - Lab 03/02/19 04:15 03/02/19 04:15 Most recent lab results 03/02/19 04:15 Calcium 7.5 L Consult Discharge Plan - Plan Referrals: NONE,PCP [Primary Care Provider] -
[2019-03-02] MEDS: Albumin 25% 25gram/100mL 25 GM/100 ML IV.SOLN IVC SCH ×2 (15:00→15:10)
[2019-03-02] MEDS ORDERED: 0.9 % Sodium Chloride 1,000 ML IVC ONE (15:01)
[2019-03-02] MEDS ORDERED: Albumin 25% 25gram/100mL 50 GM/200 ML IV.SOLN ONE (15:01)
[2019-03-02] MEDS ORDERED: 0.9 % Sodium Chloride 1,000 ML ONE (15:05)
--- NOTE | 2019-03-02 15:34 | Electrocardiograph Report ---
[address] [place] [address] Test Date: 2019-03-02 Pat Name: Angel Wright Department: 109 Room: 09 Gender: M Bar Catcher: : 1950 Requested By: Kalyani Young Order Number: [id number] Reading MD: Nawaf Olsen Measurements Intervals [place] Rate: 104 P: [place]: 0 QRS: -58 QRSD: 98 T: 152 QT: 345 QTc: 406 Interpretive Statements ATRIAL FLUTTER/TACHYCARDIA WITH RAPID VENTRICULAR RESPONSE INFERIOR MYOCARDIAL INFARCTION, PROBABLY OLD ANTEROLATERAL MYOCARDIAL INFARCTION, OF INDETERMINATE AGE Electronically Signed On 03-02-2019 15:32:57 EDT by Nawaf Olsen
[2019-03-02 15:44] LABS: ABG Base Excess -3 mEq/L (-2 to 3); ABG HCO3 21 mEq/L (21-27); ABG Oxygen Saturation 100 % (95-98); ABG PCO2 35 mmHg (35-45); ABG PH 7.39 pH Units (7.32-7.45); ABG PO2 422 mmHg (85-104); ABG TCO2 22 mEq/L (20-26); Blood Gas PEEP 8 cm H2O
--- NOTE | 2019-03-02 16:06 | Procedure Note ---
Date of procedure: 03/02/19 Pre-op diagnosis: Hypotension Post-op diagnosis: same Procedure: Implied consent in the setting of urgent/emergent status. A timeout was performed prior to the procedure. The area of the left radial artery was cleaned and draped. The site was anesthetized with subcutaneous lidocaine. Utilizing ultrasound guidance the artery was cannulated and a wire was passed into the artery. The catheter was advanced into the artery and sutured into place. Good waveform noted on the monitor. A sterile dressing was placed. No untoward events. Anesthesia: local Surgeon: Jayce Person Was there an assistant curator present: No Estimated blood loss (cc): 0 Specimen: none
--- NOTE | 2019-03-02 16:22 | Event Note ---
Date of Encounter: 03/02/19 Time of Encounter: 16:19 Critical care attending note Called urgently into the patient's room to assess hypotension and encephalopathy. The patient became less responsive, and we had difficulties obtaining a blood pressure with the automatic cuff. He did have strong palpable pulses. He was only minimally arousable with sternal rub. We placed him on BiPAP, as we are unable to obtain pulse oximetry readings. I placed an arterial line in the left radial artery. This confirmed significant hypotension. His hypotension was initially responsive to boluses of albumin. However he again became hypotensive, and we restarted norepinephrine. I suspect his worsening encephalopathy is related to hypoperfusion from hypotension, but he is on anticoagulation and at risk for bleeding. We will obtain a STAT CT scan of the head without contrast for further evaluation. The house staff is calling the patient's to give her an update on his status. If his mental status does not turn around, he will be at risk for requiring intubation.
[2019-03-02] MEDS ORDERED: *HR* Midazolam HCl 2 MG/2 ML VIAL IVP ONE (16:42)
[2019-03-02] MEDS ORDERED: *HR* Midazolam HCl 2 MG/2 ML VIAL ONE (16:44)
--- NOTE | 2019-03-02 19:19 | Anesthesia Procedures ---
Date of Encounter: 03/02/19 Time of Encounter: 18:40 Procedures: Anesthesia - Arterial Line Local Anesthetic: Lidocaine 1% Amount of Anesthetic used (mls): 3 Size (Gauge): 20 Length (inches): 5 Technique Used: sterile prep, guide wire technique Post-Procedure: line sutured into place, line taped into place Patient tolerated procedure: no complications Complications: none Site: Brachial L Vitals: Vital Signs/O2 Sat, Most Current Temp Pulse Resp BP Pulse Ox 97.7 F 138 19 122/81 94 03/02/19 16:00 03/02/19 18:00 03/02/19 18:00 03/02/19 18:00 03/02/19 18:00 Comments: Contacted by hospitalist group that patient in need of arterial line. Patient had left radial which is no longer functioning and has been removed. Implied consent in the setting of urgent status. Sterile prep and drape to the area around the left brachial artery. The site was anesthetized with 3 cc 1% plain lidocaine. Utilizing ultrasound guidance the artery was cannulated and a wire was passed into the artery. The catheter was advanced into the artery and sutured into place. Good waveform was noted on the monitor. Sterile dressing applied.
[2019-03-02] MEDS: Insulin DETEMIR 100 UNIT/ML X5UNITS SQ SCH (20:22)
[2019-03-02] MEDS: traZODone 50 MG TABLET PO SCH (20:23)
[2019-03-02] MEDS: rOPINIRole 0.25 MG TABLET PO SCH (20:23)
[2019-03-02] MEDS ORDERED: *HR* LORazepam 2 MG/ML VIAL IVP ONE (20:26)
[2019-03-02] MEDS: 0.9 % Sodium Chloride 1,000 ML IVC SCH (20:44)
[2019-03-03] MEDS: MetroNIDAZOLE 500 MG/100 ML 500 MG/100 ML BAG IVPB SCH ×4 (00:39→23:57)
[2019-03-03] MEDS: Vancomycin 500 MG, Sodium Chloride IRRigation 250 ML RC SCH (00:39)
[2019-03-03] MEDS: Dexmedetomidine HCl 400 MCG/100 ML MLS IVC SCH ×7 (01:19→22:17)
[2019-03-03] MEDS: Norepinephrine 4 MG in D5% in Water 250 ML IVC SCH (02:55)
[2019-03-03] MEDS: Ipratropium/Albuterol Neb 3 ML IH SCH ×5 (03:32→20:15)
[2019-03-03] MEDS: Heparin 25,000 UNIT/250 ML D5W 25,000 UNIT/250 ML IV.SOLN IVC SCH ×2 (03:55→16:36)
[2019-03-03 04:10] LABS: Hematocrit 36.4 % (37.5-50.1); Mean Corpuscular HGB Conc 30.2 g/dL (31.6-35.5); Mean Corpuscular Hemoglobin 26.2 pg (28.0-33.3); Mean Corpuscular Volume 86.7 fL (83.0-100.0); Mean Platelet Volume 11.8 fL (9.4-12.4); Platelet Count 122 K/mcL (140-400); Red Cell Distribution Width 15.9 % (11.5-14.5); White Blood Count 16.9 K/mcL (4.3-11.1)
[2019-03-03 04:31] LABS: Calcium 6.8 mg/dL (8.6-10.3); Potassium 5.2 mEq/L (3.5-5.1)
[2019-03-03 06:26] LABS: ABG Base Excess -5 mEq/L (-2 to 3); ABG HCO3 16 mEq/L (21-27); ABG Oxygen Saturation 97 % (95-98); ABG PCO2 24 mmHg (35-45); ABG PH 7.45 pH Units (7.32-7.45); ABG PO2 81 mmHg (85-104); ABG TCO2 17 mEq/L (20-26); Blood Gas PEEP 8 cm H2O
[2019-03-03] MEDS: Budesonide/Formoterol 160/4.5 1 PUFF INH IH SCH ×2 (07:18→20:16)
--- NOTE | 2019-03-03 07:45 | Pulmonology Progress Note ---
Date of Encounter: 03/03/19 Time of Encounter: 07:43 Assessment and Plan (1) Septic shock Current Visit: Yes Status: Acute Resolved. Was admitted to the hospital due to acute on chronic respiratory failure Likely secondary to colitis versus pneumonia Did not respond to fluid initially Yesterday became unresponsive required albumin and fluid Has a left brachial arterial line Continues to require pressor Continue to monitor keep MAP above 65 -Continue rectal vancomycin and IV Flagyl day 5 -Infectious disease consulted -Palliative care consultation for goals of care (2) Acute and chronic respiratory failure with hypoxia Current Visit: No Status: Acute Mr. Wright was presented to the ER overnight due to hypoxia At presentation he was on 2 L of nasal cannula oxygen saturation in the 70s Continue scheduled DuoNeb Continue scheduled Symbicort Continue 40 mg IV every 12 hour Solu-Medrol, will consider stopping after total 5 days, 03/02/19 Holding further antibiotics at this time and will continue to treat underlying colitis Tolerating 3 L nasal cannula (3) DVT (deep venous thrombosis) Current Visit: Yes Status: Acute Was complaining of bilateral lower extremity pain at presentation Bilateral lower leg Doppler shows DVT in right and left lower extremities Continue IV heparin drip Qualifiers: DVT location: lower extremity Affected thrombotic vein of extremity: tibial Chronicity: acute Laterality: bilateral Qualified Code(s): I82.443 - Acute embolism and thrombosis of tibial vein, bilateral (4) Pancolitis Current Visit: Yes Status: Acute Presented to the ED due to shortness of breath White blood cell at presentation was 29; CT abdomen pelvis was ordered in the ER CT of the abdomen and pelvis shows pseudomembranous pancolitis GI stool panel shows C. difficile colitis Currently in septic shock not responding to IV fluid requiring pressors Will treat for fulminant C. difficile colitis with IV Flagyl and 500 mg 4 times a day oral vancomycin (5) Hyperkalemia Current Visit: No Status: Acute Presented with potassium of 5.4 potassium this morning yesterday increased to 5.2 today Nephrology consulted May require dialysis versus continuous renal replacement therapy today (6) Acute kidney injury Current Visit: Yes Status: Acute Presented with creatinine of 2.75 History of chronic Harper This morning creatinine 2.32 increased from 1.4 to yesterday Currently not producing significant urine, 50 ml yesterday and 15 today Nephrology consulted (7) Acute metabolic encephalopathy Current Visit: Yes Status: Acute Presented with altered mental status and shortness of breath Multifactorial etiology from chronic reported anoxic brain injury and septic shock To assess has improved but yesterday became unresponsive CT of the head does not show any acute abnormalities Avoid Ativan or haloperidol (8) Tachycardia Current Visit: Yes Status: Acute Sinus tachycardia Likely multifactorial from agitation, pain and possible PE cannot be ruled out Currently on heparin for bilateral DVT Repeat EKG pending (9) COPD exacerbation Current Visit: Yes Status: Acute History of COPD Presented to the ED with oxygen saturations in the 70s with home 2 L Continue intermittent BiPAP Completed 5 day course of Solu-Medrol (10) CHF (congestive heart failure) Current Visit: No Status: Chronic Previous echo on 11/28/18 showing EF 50% with moderate aortic stenosis with moderate aortic regurg Presented with troponin of 0.10 Repeat echo today showed suboptimal with poor assessment of LV function and wall motion even with Definity Continue to hold furosemide given current volume status Qualifiers: Heart failure type: diastolic Heart failure chronicity: acute on chronic Qualified Code(s): I50.33 - Acute on chronic diastolic (congestive) heart failure (11) Diabetes Current Visit: No Status: Chronic History of diabetes on insulin at home Holding long-acting insulin given within normal limits glucose Medium dose sliding scale and at bedtime ordered Continue daily detemir Qualifiers: Diabetes mellitus type: type 2 Diabetes mellitus 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 insulin use: with shelter use Diabetes mellitus complication status: with hyperglycemia Qualified Code(s): E11.65 - Type 2 diabetes mellitus with hyperglycemia; Z79.4 - half-way (current) use of insulin; Z79.4 - half-way (current) use of insulin; Z79.4 - termite technician (current) use of insulin; Z79.4 - termite technician (current) use of insulin (12) Cirrhosis Current Visit: Yes Status: Acute CT abdomen noted nodularity of liver suspected cirrhosis Ongoing hypotension likely chronic due to cirrhosis -Received 25 mg every 6 hours have albumin yesterday for better pressure control -While add midodrine once taking food orally Qualifiers: Hepatic cirrhosis type: unspecified hepatic cirrhosis Ascites presence: unspecified Qualified Code(s): K74.60 - Unspecified cirrhosis of liver (13) Insomnia Current Visit: Yes Status: Chronic History of insomnia on trazodone at home Please avoid Ativan or Haldol as it makes him more to serious in the morning Start home trazodone Qualifiers: Insomnia type: unspecified Qualified Code(s): G47.00 - Insomnia, unspecified (14) DVT prophylaxis Current Visit: No Status: Chronic On heparin drip Subjective Principal diagnosis: JENN Interval history: Mr. Wright was seen at bedside this morning. He is on Precedex is right now due to severe agitation interrupting his care. He awakens but is not oriented to person place or time. Objective PUL Vital signs: Last Vital Signs Temp 99.8 F H 03/03/19 04:05 Pulse 143 03/03/19 07:00 Resp 30 03/03/19 07:19 BP 101/61 03/03/19 07:00 Pulse Ox 88 03/03/19 07:19 General appearance: asleep Eyes: nonicteric ENT: oropharynx moist Auscultation: bilateral: clear Cardiovascular: other (Sinus tachycardia) Gastrointestinal: absent bowel sounds, other (distended) Extremities: no cyanosis, edema (+2 piting edema bilaterally) Musculoskeletal: no deformities pupils equal and round, unable to assess due to mental status (on sedation) mood appropriate, affect normal Results - Laboratory Findings CBC and BMP: 03/03/19 03:55 03/03/19 03:55 ABG ABG pH 7.45 pH Units (7.32-7.45) 03/03/19 06:23 ABG pCO2 24 mmHg (35-45) L 03/03/19 06:23 ABG pO2 81 mmHg (85-104) L 03/03/19 06:23 ABG O2 Saturation 97 % (95-98) 03/03/19 06:23 PT/INR, D-dimer PT 12.6 Seconds (9.4-12.1) H 02/25/19 23:49 D-Dimer 2199 ng/mLFEU (0-500) H 02/25/19 23:49 Abnormal lab findings: Abnormal lab results WBC 16.9 K/mcL (4.3-11.1) H 03/03/19 03:55 RBC 5.69 M/mcL (4.19-5.50) H 02/28/19 04:02 Hgb 11.0 g/dL (12.9-16.9) L 03/03/19 03:55 Hct 36.4 % (37.5-50.1) L 03/03/19 03:55 MCH 26.2 pg (28.0-33.3) L 03/03/19 03:55 MCHC 30.2 g/dL (31.6-35.5) L 03/03/19 03:55 RDW 15.9 % (11.5-14.5) H 03/03/19 03:55 Plt Count 122 K/mcL (140-400) L 03/03/19 03:55 Band Neutrophils % 6.0 % (0-4) H 03/01/19 04:01 Metamyelocytes % 1.0 % (0) H 02/26/19 14:24 Myelocytes % 1.0 % (0) H 02/26/19 14:24 Neutrophils # 13.1 K/mcL (1.6-8.9) H 03/02/19 04:15 Lymphocytes # 0.3 K/mcL (0.6-4.6) L 03/01/19 04:01 Monocytes # 3.2 K/mcL (0.0-1.3) H 02/27/19 05:45 Nucleated RBCs/100 WBC 0.9 /100 WBC (0) H 03/02/19 04:15 Reactive Lymphocytes Present (Not Present) A 02/28/19 04:02 Platelet Estimate Slight Decrease (Normal) L 03/01/19 04:01 Polychromasia 1+ (Not Present) A 02/26/19 14:24 Anisocytosis 1+ (Not Present) A 03/01/19 04:01 Ovalocytes 1+ (Not Present) A 02/27/19 05:45 PT 12.6 Seconds (9.4-12.1) H 02/25/19 23:49 D-Dimer 2199 ng/mLFEU (0-500) H 02/25/19 23:49 Heparin Anti-Xa, Unfract 0.75 IU/mL (0.30-0.70) H 03/03/19 03:55 ABG pCO2 24 mmHg (35-45) L 03/03/19 06:23 ABG pO2 81 mmHg (85-104) L 03/03/19 06:23 ABG HCO3 16 mEq/L (21-27) L 03/03/19 06:23 ABG Total CO2 17 mEq/L (20-26) L 03/03/19 06:23 ABG O2 Saturation 100 % (95-98) H 03/02/19 15:41 ABG Base Excess -5 mEq/L (-2 to 3) L 03/03/19 06:23 VBG pCO2 39 mmHg (41-51) L 02/28/19 11:47 VBG pO2 53 mmHg (25-50) H 02/28/19 11:47 Sodium 135 mEq/L (136-145) L 03/03/19 03:55 Potassium 5.2 mEq/L (3.5-5.1) H 03/03/19 03:55 Chloride 108 mEq/L (98-107) H 03/03/19 03:55 Carbon Dioxide 15 mEq/L (23-29) L 03/03/19 03:55 BUN 41 mg/dL (8-23) H 03/03/19 03:55 Creatinine 2.32 mg/dL (0.70-1.30) H 03/03/19 03:55 Est GFR ( Amer) 34 (> 60) L 03/03/19 03:55 Est GFR (Non-Af Amer) 28 (> 60) L 03/03/19 03:55 BUN/Creatinine Ratio 28 (6-26) H 02/26/19 07:18 Glucose 244 mg/dL (70-105) H 03/03/19 03:55 POC Glucose 199 mg/dL (70-99) H 03/02/19 19:48 Calculated Osmolality 308 (280-300) H 02/27/19 05:45 Calcium 6.8 mg/dL (8.6-10.3) L 03/03/19 03:55 AST 50 Units/L (13-39) H 02/28/19 04:02 Troponin I 0.09 ng/mL (< 0.04) H* 02/26/19 14:24 B-Natriuretic Peptide 244 pg/mL (Less than 100) H 02/25/19 23:49 Serum Total Protein 5.0 g/dL (6.4-8.9) L 03/02/19 04:15 Albumin 3.0 g/dL (3.5-5.7) L 03/02/19 04:15 Globulin 2.0 g/dL (2.4-3.5) L 03/02/19 04:15 Albumin/Globulin Ratio 0.9 (1.1-2.2) L 02/28/19 04:02 Procalcitonin 12.90 ng/mL (0.00-0.15) H 02/27/19 05:45 Ur Specimen Adequacy See below A 02/26/19 01:44 Urine Clarity Turbid (Clear) A 02/26/19 01:44 Urine Protein 100 mg/dL (Neg-Trace) H 02/26/19 01:44 Urine Blood Large (Negative) H 02/26/19 01:44 Urine Bilirubin Moderate (Negative) H 02/26/19 01:44 Ur Leukocyte Esterase Moderate (Negative) H 02/26/19 01:44 Urine Microscopic RBC 15-30 per hpf (0-3) H 02/26/19 01:44 Urine Microscopic WBC 50-100 per hpf (0-3) H 02/26/19 01:44 Urine Bacteria Many per hpf (None-Few) H 02/26/19 01:44 Urine Yeast Few per hpf (None Seen) H 02/26/19 01:44 Ur Culture Indicated? YES (NO) A 02/26/19 01:44 Protein/Creatinin Ratio 1.03 mg/mg (0.00-0.20) H 02/27/19 11:10 Urine Total Protein 216 mg/dL (1-14) H 02/27/19 11:10 Nasal Screen MRSA (PCR) DETECTED (Not Detect) A 02/27/19 08:18 Stl C. diff Tox B Gene Positive (Negative) A 02/27/19 23:30 Vancomycin Trough 18 mcg/mL (5-10) H 02/27/19 05:45 - Microbiology Findings Microbiology Findings: Microbiology, Last 48 Hours 02/26/19 00:27 Blood Culture - Final Peripheral Venipuncture No growth. Final report. 02/25/19 23:57 Blood Culture - Final Peripheral Venipuncture No growth. Final report. - Clinical Findings Intake & Output: Intake & Output 03/02/19 03/02/19 03/03/19 15:59 23:59 07:59 Intake Total 300 / 2574 1674 / 2574 886.4 / 886.4 Output Total 0 / 50 0 / 50 15 / 15 Balance 300 / 2524 1674 / 2524 871.4 / 871.4 Weight 159.8 kg Consult Discharge Plan - Plan Referrals: NONE,PCP [Primary Care Provider] -
--- NOTE | 2019-03-03 08:23 | Nephrology Progress Note ---
Date of Encounter: 03/03/19 Time of Encounter: 08:23 - Assessment and Plan (1) Acute kidney injury superimposed on chronic kidney disease Current Visit: Yes Status: Acute This is a 68-year-old male with past medical history significant for diabetes and CHF who initially presented with altered mental status. Patient was diagnosed with pseudomembranous colitis, and his hospital course was compensated with septic shock for which she was admitted to the ICU. While admitted, JENN on CKD developed, and nephrology consulted for further management. - BUN/Cr = 41/2.32 this AM (Baseline CKD stage III) - Very minimal UO PLAN: Mr. Wright initially presented with acute kidney injury superimposed on chronic kidney disease, which was likely secondary to acute tubular necrosis in the setting of hypoperfusion due to septic shock. He was started on CVVHDF on 02/27/19. With improving kidney function, CVVHDF was discontinued on 03/02/19. However, patient has had worsening respiratory status, multiple episodes of hypotension, and altered mental status. He continues to be oliguric. Patient was started back on pressors as of yesterday, and he was intubated as of this morning. He continues to be septic, and requiring pressors. Given the grave clinical picture, patient would benefit from continued CVVHDF - Cont with CVVHDF - Supportive Care - Renally dose medications - Avoid nephrotoxins - Daily weights - Strict I's and O's - Continue with daily monitoring of kidney function. Daily BMPs (2) Colitis Current Visit: Yes Status: Acute Continue management per primary team (3) Diabetes Current Visit: No Status: Chronic Qualifiers: Diabetes mellitus type: type 2 Diabetes mellitus [facility] insulin use: with oil heaterman use Diabetes mellitus complication status: with hyperglycemia Qualified Code(s): E11.65 - Type 2 diabetes mellitus with hyperglycemia; Z79.4 - oil heaterman (current) use of insulin; Z79.4 - [facility] (current) use of insulin; Z79.4 - oil heaterman (current) use of insulin; Z79.4 - [facility] (current) use of insulin (4) Morbid obesity with BMI of 45.0-49.9, adult Current Visit: No Status: Chronic Subjective Principal diagnosis: JENN Interval history: Patient was seen and examined at bedside this morning. Given patient's continued respiratory distress, he was intubated this morning. Patient had previously been on CVVHDF, which has been discontinued as of yesterday. As of this morning, patient continued to have blood pressure maintained on pressors. Yesterday evening, patient was noted to be hypotensive, less responsive, confused. He was initially placed on BiPAP, but then due to persistent hypotension, pressors were restarted. Objective - Vital Signs Vital signs: Vital Signs Temp Pulse Resp BP Pulse Ox 03/03/19 08:21 100.2 F H 03/03/19 08:00 145 30 91/59 96 03/03/19 07:19 30 88 03/03/19 07:00 143 25 101/61 90 03/03/19 06:00 143 20 107/64 95 03/03/19 05:00 142 24 99/69 95 03/03/19 04:05 99.8 F H 03/03/19 04:00 142 22 101/63 98 03/03/19 03:32 24 97 03/03/19 03:00 135 22 98/63 98 03/03/19 02:00 140 22 108/61 96 03/03/19 01:00 140 24 109/63 96 03/03/19 00:00 141 21 114/64 96 03/02/19 23:49 25 94 03/02/19 23:16 99.6 F 03/02/19 23:00 138 20 99/62 95 03/02/19 22:00 137 12 107/57 94 03/02/19 21:00 136 14 105/57 97 03/02/19 20:12 99.4 F 03/02/19 20:03 22 94 03/02/19 20:00 137 16 106/63 93 03/02/19 19:00 137 17 88/55 91 03/02/19 18:00 138 19 122/81 94 03/02/19 17:00 135 19 123/78 92 03/02/19 16:20 18 100 03/02/19 16:00 97.7 F 76 20 98/52 03/02/19 14:51 97.7 F 03/02/19 13:00 110 18 103/63 95 03/02/19 12:00 108 18 84/63 95 03/02/19 11:28 22 92 03/02/19 11:25 97.9 F 03/02/19 11:00 107 20 96/59 94 03/02/19 10:00 118 22 102/76 96 03/02/19 09:00 138 22 97/66 97 Intake and Output 03/02/19 03/03/19 03/03/19 23:59 07:59 15:59 Intake Total 1674 / 2574 886.4 / 886.4 Output Total 0 Balance 1674 / 2524 871.4 / 821.4 -50 / 821.4 Intake: IV Fluids 1674 / 2574 886.4 / 886.4 0.9 % Sodium Chloride 1,000 ML 1000 / 1000 @ 999 mls/hr IVC .Q1H1M [facility] Rx# :[id number] Flexbumin 25 gm In 100 ml @ 60 100 / 200 mls/hr IVC .Q1H40M [facility] Rx#: [id number] Precedex Premix 400 mcg In 100 200 / 300 300 / 300 ml @ 0.2 MCG/KG/HR 7.65 mls/hr IVC .Q13H5M [facility] Rx#:[id number] Heparin 25,000 UNIT/250 ML D5W 250 / 250 256.4 / 256.4 25,000 unit In 250 ml @ 14 UNIT /KG/HR 20.829 mls/hr IVC . Q12H1M [facility] Rx#:[id number] Levophed 4 MG In Dextrose 5% 24 / 24 230 / 230 250 ML @ 5 MCG/MIN 19.05 mls/hr IVC CONT [facility] Rx#:[id number] Flagyl Premix 500 MG/100 ML 500 100 / 300 100 / 100 mg In 100 ml @ 100 mls/hr IVPB Q8HR [facility] Rx#:[id number] Oral 0 / 0 Output: Urine 0 / 0 Catheter 0 50 Other: Weight 159.8 kg Blood Glucose* 199 210 Patient Weight 03/03/19 23:59 Weight 159.8 kg - General Appearance General appearance: Present: obese, moderate distress, chronically ill, sedated on ventilator, intubated EENT: Present: ATNC, PERRL, mucous membranes dry Neck: Present: no JVD, supple Additional Comments: Temporary hemodialysis line noted in right IJ on right-sided neck Respiratory: Present: course breath sounds Cardiology: Present: no murmurs, no rub, no gallops, edema, regular rate, regular rhythm, normal S1, normal S2 Gastrointestinal: Present: normoactive bowel sounds, absent bowel sounds, no guarding, no organomegaly, no masses Integumentary: Present: chronic venous stasis Additional Comments: Sedated and intubated. Currently on mechanical ventilation. Musculoskeletal: Present: joint swelling Additional Comments: Blue/brown discoloration of distal extremities. 2+ pitting edema to the bilateral knees - Lab 03/03/19 13:01 03/03/19 13:05 Most recent lab results 03/03/19 03/03/19 03:55 06:23 ABG pH 7.45 ABG pCO2 24 L ABG pO2 81 L ABG HCO3 16 L ABG O2 Saturation 97 Calcium 6.8 L Consult Discharge Plan - Plan Referrals: NONE,PCP [Primary Care Provider] -
[2019-03-03] MEDS: Insulin LISPRO 300 UNITS/3 ML VIAL SQ SCH ×4 (08:40→21:03)
[2019-03-03] MEDS: Fluticasone Propionate Nasal 50 MCG/SPRAY BOTTLE NS SCH (09:01)
[2019-03-03] MEDS: Aspirin 81 MG TAB.CHEW PO SCH (09:01)
[2019-03-03] MEDS ORDERED: Artificial Tears SOLN 15 ML BOTTLE BOTH EYES PRN (09:34)
--- NOTE | 2019-03-03 09:49 | Procedure Note ---
Date of procedure: 03/03/19 Pre-op diagnosis: respiratory failure Post-op diagnosis: same Procedure: A time-out was completed verifying correct patient, procedure, site, positioning. The patient was placed in a flat position. Sedation was obtained using 4 of versed, 20 mg of etomidate and 64 of rocuronium. The patient was easily ventilated using an ambu bag. The glidescope was used and inserted into the oropharynx at which time there was a Grade 1 view of the vocal cords. A 7.5-somali endotracheal tube was inserted and visualized going through the vocal cords. The stylette was removed. Colorimetric change was visualized on the CO2 meter. Breath sounds were heard in both lung carson equally. The endotracheal tube was placed at 22 cm, measured at the teeth. Dr. Person was present for the entire procedure. A chest x-ray was ordered to assess for pneumothorax and verify endotrachealtube placement. Anesthesia: IV sedation Surgeon: Kalyani Young Was there an speech language pathology assistant present: Yes Track Car Operator: Jayce Person Estimated blood loss (cc): 0 Specimen: none Pathology: none sent Condition: critical Disposition: no change
--- NOTE | 2019-03-03 10:28 | Infectious Disease Consult ---
Infectious Disease-Consult - Encounter Date/Time Date of Encounter: 03/03/19 Time of Encounter: 10:26 - Data of Consult Reason for consult: "Has C. difficile colitis has grown MDRO Pseudomonas multiple times unsure of colonization or contributory. C. difficile colitis treatment ongoing but clinically not improving." Consult date: 03/03/19 Requesting Physician: Nick George MD Primary Care Provider: PCP NONE - HPI HPI: Mr. Wright is a 68-year-old male with past medical history of COPD, CHF, diabetes, ammonia, and anoxic brain injury status post cardiac arrest, UT, cardiomyopathy status post defibrillator, diabetes, hyperlipidemia, and hypertension. The patient was in admitted to the hospital 02/25/19 for C. difficile colitis, hyperkalemia, hypocalcemia, elevated troponin, and elevated d-dimer. We are consulted 03/03/19 for further workup and treatment recommendation for sepsis and C. difficile colitis. Briefly, the patient is a 68-year-old male with a past medical history as stated above. The patient presented to the emergency department on the day of admission with complaints of shortness of breath and altered mental status and right lower extremity pain. Upon arrival, he was afebrile. He was cardiac and tachypneic, but was otherwise hemodynamically stable. He had an acute kidney injury. Lactic acid was normal. Troponin was mildly elevated at 0.10. D-dimer was elevated at 2199. CT angiogram of the chest was deferred due to the patient's acute kidney injury. His CT of the abdomen and pelvis that showed findings consistent with pancolitis. Chest x-ray showed bibasilar atelectasis versus pneumonia. Blood cultures were obtained 2 sets and were negative. He was started empirically on antibiotics and admitted to the hospital for further evaluation. Since admission, the patient has developed hypotension requiring the insertion of a central venous catheter and initiation of vasopressors. His white blood cell count has improved. He was evaluated by the acute care surgery for the colitis he did not have a surgical intervention was warranted. Nephrology was consulted and the patient was initially started on CRRT and has recently been transitioned to intermittent hemodialysis. The patient tested positive for C. difficile for the PCR, but the EIA was negative. MRSA nasal screen was positi ve. Procalcitonin was elevated, but the patient has acute kidney injury which could alter the results. Retroperitoneal ultrasound showed no abnormality of the kidneys, but did show small volume ascites, and a distended gallbladder. 2 days ago, he went into A. fib RVR. Cardiology's been consult. Transthoracic echocardiogram that was suboptimal. 03/02/[address] of the head that showed right mastoid air cell fluid levels. This morning, he was intubated. Palliative care consult is pending. Currently, he is on rectal vancomycin and IV Flagyl. We have been asked to evaluate and make further recommendations. Currently, the patient is intubated and sedated. Review of systems is unobtai nable from the patient. - ROS Review of Systems: Unobtainable due to the patient's mental status. - Results CBC & Chem 7: 03/03/19 03:55 03/03/19 03:55 - Line Documentation Line Documentation: Dialysis Catheter, Triple Lumen Central Line - Exam Vitals: Temp Pulse Resp BP Pulse Ox 100.2 F H 150 20 76/58 97 03/03/19 09:42 03/03/19 09:42 03/03/19 10:00 03/03/19 10:00 03/03/19 10:00 Exam: Head: Atraumatic, normal inspection, normocephalic. Eye: EOMI, PERRLA, no scleral icterus noted. ENT: Mucous membranes moist. No odontogenic infection noted. Neck: Normal inspection. Respiratory: Clear to auscultation. No rales, respiratory distress, rhonchi, or wheezes noted. O2 via the ventilator at FiO2 100%. Cardiovascular: Irregular rhythm, tachycardic, S1 and S2 audible. No murmurs, rubs, or gallops. GI: Soft, obese, hypoactive bowel sounds. Harper catheter with scant yellow urine. Rectal tube with no output. Extremities: No joint swelling or tenderness noted. 1+ edema noted to the bilateral lower extremities. Neurological: Sedated and unresponsive. Skin: Dry, intact, warm. Pale. No rashes. Carvedilol 12.5 mg PO BID 02/19/19 [History] Fexofenadine HCl [Allergy Relief] 180 mg PO DAILY PRN 02/19/19 [History] Fluticasone/Umeclidin/Vilanter [Trelegy Ellipta 100-62.5-25] 1 puff IH DAILY 02/19/19 [History] Furosemide [Lasix] 40 mg PO BID 02/19/19 [History] Insulin NPH, HUMAN [HumuLIN N] 30 unit SQ HS 02/19/19 [History] Insulin Regular Human [Humulin R] 0 unit SQ TIDWM 02/19/19 [History] Isosorbide DInitrate [Isosorbide Dinitrate] 5 mg PO TID 02/19/19 [History] Lovastatin 10 mg PO HS 02/19/19 [History] Sertraline [Zoloft] 100 mg PO HS 02/19/19 [History] Tamsulosin [Flomax] 0.4 mg PO HS 02/19/19 [History] Tiotropium [Spiriva] 18 mcg IH DAILY 02/19/19 [History] Trazodone HCl 100 mg PO HS 02/19/19 [History] rOPINIRole [Requip] 0.25 mg PO HS 02/19/19 [History] Acetaminophen [Tylenol 650mg SUPP] 650 mg RC Q4H PRN 02/20/19 [History] Acetaminophen [Tylenol] 650 mg PO Q4H PRN 02/20/19 [History] Albuterol Sulfate [Ventolin Hfa] 2 puff IH Q4H PRN 02/20/19 [History] Aspirin 81 mg PO DAILY 02/20/19 [History] Bisacodyl [Gentle Laxative] 10 mg RC DAILY PRN 02/20/19 [History] Carvedilol 3.125 mg PO QAM 02/20/19 [History] Chloraseptic Ellerbe [Chloraseptic] 1 spray MM Q2H PRN 02/20/19 [History] Fluticasone Propionate Nasal [Flonase] 2 spray NS DAILY 02/20/19 [History] Glucagon,Human Recombinant [Glucagon Emergency Kit] 1 mg IM AD PRN 02/20/19 [History] Insulin NPH, HUMAN [HumuLIN N] 50 unit SQ QAM 02/20/19 [History] Ipratropium/Albuterol Sulfate [Iprat-Albut 0.5-3(2.5) mg/3 ml] 3 ml IH BID PRN 02/20/19 [History] Loperamide HCl [Anti-Diarrheal] 2 mg PO Q4H PRN MDD 8MG/24HR 02/20/19 [History] Mag Hydrox/Aluminum Hyd/Simeth [Cvs Antacid Plus Anti-Gas Liq] 30 ml PO BID PRN #0 02/20/19 [History] Neomycin [place]/Bacitrac Zn/Poly [Triple Antibiotic Ointment] 1 appl TP DAILY 02/20/19 [History] Neomycin [place]/Bacitrac Zn/Poly [Triple Antibiotic Ointment] 1 appl TP DAILY PRN 02/20/19 [History] Saline Nasal Ellerbe [Buchanan Nasal Ellerbe] 1 spray NS DAILY PRN 02/20/19 [History] Gabapentin [Neurontin] 300 mg PO TID #30 capsule 02/23/19 [Rx] Tramadol HCl [Ultram] 50 mg PO Q4H PRN 5 Days #20 tablet 02/23/19 [Rx] predniSONE [PredniSONE] 10 mg PO DAILY #20 tablet 02/23/19 [Rx] Allergy/AdvReac Type Severity Reaction Status Date / Time No Known Drug Allergies Allergy See Verified 02/20/19 15:10 Comments - Assessment and Plan (1) Septic shock Current Visit: Yes Status: Acute The patient had three SIRS criteria plus altered mental status on admission and later developed respiratory failure, tachypnea, and fever. Likely secondary to colitis, but concern for additional source as well. Low-grade temp this morning. Continues to have tachycardia, tachypnea, and leukocytosis. Respiratory failure requiring intubation. Remains on vasopressors. Blood cultures drawn 02/25/19 are negative x 2. CT head showed air-fluid level in the right mastoid air cells. Urine culture positive for MDRO PSEA. Procalcitonin elevated, but the patient has an JENN so this is not reliable. LFTs normal. SNOMED Code(s): 79565638 (2) Pancolitis Current Visit: Yes Status: Acute Noted on CT of the abdomen. C. diff PCR positive, but the EIA negative. Patient apparently had multiple watery stools on admission. Severe on admission. First occurrence. No evidence of toxic megacolon/ileus on CT. ACS consulted. No surgical intervention recommended. No rectal tube output x 3 days. Previously on PO Vanc and IV flagyl, but transitioned to rectal vanc yesterday. SNOMED Code(s): 149519540 (3) Catheter-associated urinary tract infection Current Visit: No Status: Acute Asymptomatic bacteriuria/colonization vs. true infection. The patient is sedated and unable to provide ROS. Qualifiers: Indwelling urinary catheter type: indwelling urethral catheter Encounter type: initial encounter Qualified Code(s): T83.511A - Infection and inflammatory reaction due to indwelling urethral catheter, initial encounter; N39.0 - Urinary tract infection, site not specified SNOMED Code(s): 127806350 (4) Acute kidney injury superimposed on chronic kidney disease Current Visit: Yes Status: Acute Likely secondary to septic shock. CRRT initiated 02/27/19, discontinued 03/02/19. Transitioned to iHD. Nephrology consulted and following. SNOMED Code(s): 43476667 (5) DVT (deep venous thrombosis) Current Visit: Yes Status: Acute Lower extremity abnormal deep exam: right popliteal vein, posterior tibial vein, and peroneal vein demonstrate acute thrombosis. Lower extremity abnormal deep exam: left posterior tibial vein and peroneal vein demonstrate acute thrombosis. Anticoagulation per the primary team. Qualifiers: DVT location: lower extremity Affected thrombotic vein of extremity: tibial Chronicity: acute Laterality: bilateral Qualified Code(s): I82.443 - Acute embolism and thrombosis of tibial vein, bilateral SNOMED Code(s): 779087602 (6) Acute and chronic respiratory failure Current Visit: No Status: Acute Etiology: Unclear. Intubated 03/03/19. Vent management per the pulmonary team. Qualifiers: Respiratory failure complication: hypoxia Qualified Code(s): J96.21 - Acute and chronic respiratory failure with hypoxia SNOMED Code(s): 42982983 (7) Acute metabolic encephalopathy Current Visit: Yes Status: Acute Etiology: Unclear. Sepsis vs. other. CT head negative for acute intra-cranial abnormality. Currently sedated/intubated. SNOMED Code(s): 60105232, 341192327 (8) T2DM (type 2 diabetes mellitus) Current Visit: No Status: Chronic Recommend aggressive glucose monitoring and control. Management per the primary team. Qualifiers: Diabetes mellitus retirement insulin use: with superintendent terminal use Diabetes mellitus complication status: without complication Qualified Code(s): E11.9 - Type 2 diabetes mellitus without complications; Z79.4 - superintendent terminal (current) use of insulin SNOMED Code(s): 91658433 (9) Anoxic brain injury Current Visit: No Status: Suspected Secondary to cardiac arrest during previous hospitalization. SNOMED Code(s): 447232891 (10) Cirrhosis Current Visit: Yes Status: Chronic Qualifiers: Hepatic cirrhosis type: unspecified hepatic cirrhosis Ascites presence: unspecified Qualified Code(s): K74.60 - Unspecified cirrhosis of liver SNOMED Code(s): 36641135 (11) COPD (chronic obstructive pulmonary disease) Current Visit: No Status: Chronic Qualifiers: COPD type: unspecified COPD Qualified Code(s): J44.9 - Chronic obstructive pulmonary disease, unspecified SNOMED Code(s): 36803934 (12) CHF (congestive heart failure) Current Visit: No Status: Chronic Qualifiers: Heart failure type: diastolic Heart failure chronicity: acute on chronic Qualified Code(s): I50.33 - Acute on chronic diastolic (congestive) heart failure SNOMED Code(s): 33727088 (13) Hypertension Current Visit: No Status: Chronic Qualifiers: Hypertension type: essential hypertension Qualified Code(s): I10 - Essential (primary) hypertension SNOMED Code(s): 42949390 (14) Mastoiditis Current Visit: Yes Status: Acute CT of the head shows air-fluid level in the mastoid air cell at the posterior right mastoid tip. This is contributing to the patient's clinical picture. Consider ENT to evaluate. Qualifiers: Laterality: right Qualified Code(s): H70.91 - Unspecified mastoiditis, right ear SNOMED Code(s): 39113716 - Recommendations Recommendations: Trend labs daily. Repeat blood cultures x 2 sets. Check amylase and lipase. JENN management per the nephrology team. Vent/vasopressor management per the pulm/CC team. Consider ENT to evaluate. Recommend CT of the chest, abdomen, and pelvis. Continue flagyl 500mg IV TID. Start Vancomycin 500mg per OG QID. Discontinue rectal vanc. Start Vancomycin IV. Pharmacy to dose. Goal trough ~15. Start Zosyn 3.375 grams IV Q12H. Start Colistin. Will ask pharmacy to assist with dosing. Duration of treatment depends on the clinical picture. Dose-adjust antibiotics for iHD status. Contact/C. diff precautions per policy. Past Med Surg Social Fam HX - Past Medical History Medical history: cardiomyopathy, CHF, COPD, diabetes, hyperlipidemia, hypertension, renal disease Psychiatric history: depression - Past Surgical History Surgical History: pacemaker/AICD, other Additional surgical history: defibrilator - Social History Smoking Status: Former smoker Smokeless Tobacco Status: No Alcohol use: none Drug use: none - Family History Mother Living Status: Hx Family Cancer: Yes (brain tumor) Father Living Status: Hx Family Respiratory Disorders: Yes (COPD) Hx Family Endocrine Disorder: Yes (DM) Consult Discharge Plan - Plan Referrals: NONE,PCP [Primary Care Provider] -
[2019-03-03] MEDS ORDERED: *HR* Heparin 5,000 UNIT/ML VIAL IV PRN (10:33)
[2019-03-03] MEDS ORDERED: 0.9 % Sodium Chloride 1,000 ML PRIME SCH (10:45)
[2019-03-03] MEDS: *HR* Digoxin 0.5 MG/2 ML AMPUL IVP SCH ×2 (10:45→17:30)
[2019-03-03] MEDS: Pantoprazole 40 MG VIAL IVP SCH (11:07)
[2019-03-03] MEDS: Chlorhexidine Rinse 15 ML MOUTHWASH MM SCH ×2 (11:07→21:01)
[2019-03-03] MEDS: Vancomycin Oral Soln 125 MG/2.5 ML UDC PO SCH ×4 (11:08→21:02)
[2019-03-03 11:49] LABS: ABG Base Excess -7 mEq/L (-2 to 3); ABG HCO3 20 mEq/L (21-27); ABG Oxygen Saturation 98 % (95-98); ABG PCO2 46 mmHg (35-45); ABG PH 7.26 pH Units (7.32-7.45); ABG PO2 131 mmHg (85-104); ABG TCO2 22 mEq/L (20-26); Blood Gas Modality ASSIST CONTROL; Blood Gas PEEP 5 cm H2O; Blood Gas VT 500 cc
[2019-03-03] MEDS: Artificial Tears SOLN 15 ML BOTTLE BOTH EYES SCH ×3 (11:56→19:50)
[2019-03-03 12:23] LABS: Albumin 3.4 g/dL (3.5-5.7); Albumin/Globulin Ratio 1.6 (1.1-2.2); Bilirubin,Direct 0.1 mg/dL (0.0-0.2); Bilirubin,Indirect 0.3 mg/dL (0.0-1.2); Bilirubin,Total 0.4 mg/dL (0.3-1.0); Globulin 2.1 g/dL (2.4-3.5); Total Protein 5.5 g/dL (6.4-8.9)
[2019-03-03] MEDS: EPINEPHrine 1 MG in D5% in Water 250 ML IVC SCH ×2 (13:01→16:29)
[2019-03-03 13:04] LABS: ABG Base Excess 6 mEq/L (-2 to 3); ABG HCO3 37 mEq/L (21-27); ABG Oxygen Saturation 90 % (95-98); ABG PCO2 78 mmHg (35-45); ABG PH 7.28 pH Units (7.32-7.45); ABG PO2 69 mmHg (85-104); ABG TCO2 39 mEq/L (20-26); Blood Gas Modality ASSIST CONTROL; Blood Gas PEEP 5 cm H2O; Blood Gas VT 500 cc
--- NOTE | 2019-03-03 13:11 | Event Note ---
Date of Encounter: 03/03/19 Time of Encounter: 13:08 Critical care attending CODE SERJIO note I was called emergently into the room. The patient had developed ventricular tachycardia and his AICD fired. When I entered the room he was in slow ventricular tachycardia with a pulse. We pushed 300 mg of amiodarone and performed synchronized cardioversion. This converted him to a sinus rhythm, but he was pulseless. We initiated ACLS for PEA. At first pulse check the patient was noted to have a perfusing pulse as well as a blood pressure on the arterial line tracing. We initiated an epinephrine drip in addition to his maximal norepinephrine drip. We will continue an amiodarone infusion. I did discuss the case with Dr. Cano from cardiology, and I appreciate his input. Code labs are pending. We did update the patient's . We will continue ongoing goals of care discussions, as his prognosis is poor.
[2019-03-03] MEDS ORDERED: Amiodarone Premix 360 MG/200 ML BAG IVC ONE (13:12)
--- NOTE | 2019-03-03 13:15 | Electrocardiograph Report ---
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
[2019-03-03 13:23] LABS: ABG Ionized Calcium 0.96 mmol/L (1.15-1.35)
[2019-03-03 13:28] LABS: Hematocrit 48.9 % (37.5-50.1); Hemoglobin 14.4 g/dL (12.9-16.9); Mean Corpuscular HGB Conc 29.4 g/dL (31.6-35.5); Mean Corpuscular Hemoglobin 26.2 pg (28.0-33.3); Mean Corpuscular Volume 88.9 fL (83.0-100.0); Mean Platelet Volume 11.5 fL (9.4-12.4); Platelet Count 173 K/mcL (140-400); Red Cell Distribution Width 17.3 % (11.5-14.5)
[2019-03-03] MEDS ORDERED: Perflutren Lipid Microsphere 1.3 ML in 0.9 % Sodium Chloride 8.7 ML IVP ONE (13:33)
[2019-03-03 13:51] LABS: Calcium 7.4 mg/dL (8.6-10.3); Magnesium 2.8 mg/dL (1.6-2.6); Potassium 6.1 mEq/L (3.5-5.1); Troponin I 0.45 ng/mL (< 0.04)
[2019-03-03 13:56] LABS: ABG Base Excess -7 mEq/L (-2 to 3); ABG HCO3 18 mEq/L (21-27); ABG Oxygen Saturation 97 % (95-98); ABG PCO2 34 mmHg (35-45); ABG PH 7.32 pH Units (7.32-7.45); ABG PO2 96 mmHg (85-104); ABG TCO2 19 mEq/L (20-26); Blood Gas Modality ASSIST CONTROL; Blood Gas PEEP 5 cm H2O; Blood Gas VT 500 cc
[2019-03-03] MEDS ORDERED: Insulin Human Regular 10 UNIT in 0.9 % Sodium Chloride 10 ML IV ONE (14:02)
[2019-03-03] MEDS ORDERED: *HR* Dextrose 50 % in Water (Syg) 50 ML SYRINGE IVP ONE (14:04)
[2019-03-03] MEDS ORDERED: Sodium Bicarbonate 50 MEQ/50 ML VIAL IVP ONE (14:08)
[2019-03-03 14:09] LABS: White Blood Count 31.2 K/mcL (4.3-11.1)
[2019-03-03] MEDS ORDERED: Colistin (Colistimethate) 300 MG in 0.9 % Sodium Chloride 50 ML IVPB ONE (14:15)
[2019-03-03] MEDS ORDERED: 0.9 % Sodium Chloride 500 ML ONE (14:24)
[2019-03-03] MEDS ORDERED: Vancomycin 1 EACH in 0.9 % Sodium Chloride 500 ML IVPB PRN (14:26)
[2019-03-03] MEDS: Neosporin OINT 15 GM TUBE TP SCH (14:38)
[2019-03-03 14:39] LABS: Anisocytosis 1+ (Not Present); Lymphocytes # 3.1 K/mcL (0.6-4.6); Neutrophils # 26.8 K/mcL (1.6-8.9); Polychromasia 1+ (Not Present)
[2019-03-03 14:40] LABS: Platelet Estimate Normal (Normal)
[2019-03-03] MEDS: PrismaSATE BGK 4/2.5 5,000 ML CRRT SCH ×6 (15:05→21:54)
[2019-03-03] MEDS: Norepinephrine 8 MG in D5% in Water 250 ML IVC SCH ×2 (15:25→19:44)
[2019-03-03] MEDS ORDERED: Colistin (Colistimethate) 150 MG VIAL IVPB ONE (16:00)
--- NOTE | 2019-03-03 16:33 | Palliative - Consult Note ---
Date of Encounter: 03/03/19 Time of Encounter: 15:30 - Assessment and Plan (1) Anxiety Current Visit: No Status: Acute Assessment and plan: Propofol continues per ICU protocol, currently at 20/hr. (2) Goals of care, counseling/discussion Current Visit: Yes Status: Acute Assessment and plan: After code kendal was called, patient's did arrive to hospital with other family members and several grandchildren. Updated on clinical status. did decide that she did not desire patient to be coded again if he loses a pulse. However, she desires full aggressive care until that point, until at least her son arrives from out of town to assist with other decisions. Code status changed to DNRCC-Arrest, Dr. Person and primary nurse notified. His prognosis is poor. Palliative will follow up on Wednesday if patient survives. (3) Palliative care encounter Current Visit: Yes Status: Acute (4) Acute kidney injury superimposed on chronic kidney disease Current Visit: Yes Status: Acute (5) Acute metabolic encephalopathy Current Visit: Yes Status: Acute (6) Colitis Current Visit: Yes Status: Acute (7) DVT (deep venous thrombosis) Current Visit: Yes Status: Acute Qualifiers: DVT location: lower extremity Affected thrombotic vein of extremity: tibial Chronicity: acute Laterality: bilateral Qualified Code(s): I82.443 - Acute embolism and thrombosis of tibial vein, bilateral (8) Septic shock Current Visit: Yes Status: Acute (9) Cardiac arrest with successful resuscitation Current Visit: No Status: Acute Palliative-CN HPI - Data of Consult Requesting Physician: Nick George MD Primary Care Provider: PCP NONE - Consult Narrative History of present illness: Mr. Wright is a 68 year old male who has been hospitalized since 02/25 for multiple problems, including C-diff colitis, hyperkalemia, elevated troponin, and elevated d-dimer, bilateral DVT's, MDRO UTI. He was treated initially for shock. Nephrology and Cardiology have been following this patient, initially he required CRRT, and had been switched to intermittent dialysis. His condition stabilized a few days ago, and was actually supposed to transfer out of intensive care, but then began to decline again, with atrial fibrillation, increased confusion, delirium, addition of vasopressors, and this am required intubation. Palliative was consulted to assist with goals of care discussion for this patient who likely has very poor prognosis. Was unable to reach family this am to discuss goals of care. This afternoon, his heart rate was over 200 and he was shocked by AICD. Rate did come down, patient remained in vtach. He was cardioverted and went back into sinus rhythm, but did not have pulse, ailin edmonds was called. During this time, was able to reach who desired full aggressive care continue until she could arrive. Patient has a complicated past medical history of COPD, CHF, diabetes, ammonia, and anoxic brain injury status post cardiac arrest, IA, cardiomyopathy status post defibrillator, diabetes, hyperlipidemia, and hypertension. CC: Nick George MD - Time Spent with Patient Time: Total time spent is greater than 50% in coordination of care (as documented) at patient's floor/unit and/or counseling patient: Past Med Surg Social Fam HX - Past Medical History Medical history: cardiomyopathy, CHF, COPD, diabetes, hyperlipidemia, hypertension, renal disease Psychiatric history: depression - Past Surgical History Surgical History: pacemaker/AICD, other Additional surgical history: defibrilator - Social History Smoking Status: Former smoker Smokeless Tobacco Status: No Alcohol use: none Drug use: none - Family History Mother Living Status: Hx Family Cancer: Yes (brain tumor) Father Living Status: Hx Family Respiratory Disorders: Yes (COPD) Hx Family Endocrine Disorder: Yes (DM) Medications and Allergies Carvedilol 12.5 mg PO BID 02/19/19 [History] Fexofenadine HCl [Allergy Relief] 180 mg PO DAILY PRN 02/19/19 [History] Fluticasone/Umeclidin/Vilanter [Trelegy Ellipta 100-62.5-25] 1 puff IH DAILY 02/19/19 [History] Furosemide [Lasix] 40 mg PO BID 02/19/19 [History] Insulin NPH, HUMAN [HumuLIN N] 30 unit SQ HS 02/19/19 [History] Insulin Regular Human [Humulin R] 0 unit SQ TIDWM 02/19/19 [History] Isosorbide DInitrate [Isosorbide Dinitrate] 5 mg PO TID 02/19/19 [History] Lovastatin 10 mg PO HS 02/19/19 [History] Sertraline [Zoloft] 100 mg PO HS 02/19/19 [History] Tamsulosin [Flomax] 0.4 mg PO HS 02/19/19 [History] Tiotropium [Spiriva] 18 mcg IH DAILY 02/19/19 [History] Trazodone HCl 100 mg PO HS 02/19/19 [History] rOPINIRole [Requip] 0.25 mg PO HS 02/19/19 [History] Acetaminophen [Tylenol 650mg SUPP] 650 mg RC Q4H PRN 02/20/19 [History] Acetaminophen [Tylenol] 650 mg PO Q4H PRN 02/20/19 [History] Albuterol Sulfate [Ventolin Hfa] 2 puff IH Q4H PRN 02/20/19 [History] Aspirin 81 mg PO DAILY 02/20/19 [History] Bisacodyl [Gentle Laxative] 10 mg RC DAILY PRN 02/20/19 [History] Carvedilol 3.125 mg PO QAM 02/20/19 [History] Chloraseptic [place] [Chloraseptic] 1 spray MM Q2H PRN 02/20/19 [History] Fluticasone Propionate Nasal [Flonase] 2 spray NS DAILY 02/20/19 [History] Glucagon,Human Recombinant [Glucagon Emergency Kit] 1 mg IM AD PRN 02/20/19 [History] Insulin NPH, HUMAN [HumuLIN N] 50 unit SQ QAM 02/20/19 [History] Ipratropium/Albuterol Sulfate [Iprat-Albut 0.5-3(2.5) mg/3 ml] 3 ml IH BID PRN 02/20/19 [History] Loperamide HCl [Anti-Diarrheal] 2 mg PO Q4H PRN MDD 8MG/24HR 02/20/19 [History] Mag Hydrox/Aluminum Hyd/Simeth [Cvs Antacid Plus Anti-Gas Liq] 30 ml PO BID PRN #0 02/20/19 [History] Neomycin [place]/Bacitrac Zn/Poly [Triple Antibiotic Ointment] 1 appl TP DAILY 02/20/19 [History] Neomycin [place]/Bacitrac Zn/Poly [Triple Antibiotic Ointment] 1 appl TP DAILY PRN 02/20/19 [History] Saline Nasal [place] [Ceiba Nasal [place]] 1 spray NS DAILY PRN 02/20/19 [History] Gabapentin [Neurontin] 300 mg PO TID #30 capsule 02/23/19 [Rx] Tramadol HCl [Ultram] 50 mg PO Q4H PRN 5 Days #20 tablet 02/23/19 [Rx] predniSONE [PredniSONE] 10 mg PO DAILY #20 tablet 02/23/19 [Rx] Allergy/AdvReac Type Severity Reaction Status Date / Time No Known Drug Allergies Allergy See Verified 02/20/19 15:10 Comments ROS unobtainable: due to endotracheal tube Palliative Care-Exam - Constitutional Vitals: Temp Pulse Resp BP Pulse Ox 100.2 F H 109 33 92/58 97 03/03/19 16:00 03/03/19 16:00 03/03/19 16:00 03/03/19 16:00 03/03/19 16:00 General appearance: Present: morbidly obese - Head Head Exam: Present: normal inspection, normocephalic - Respiratory Respiratory exam: Present: decreased breath sounds, CTAB - Cardiovascular Cardiovascular exam: Present: irregular rhythm, tachycardia - GI/Abdominal Exam GI/Abdominal exam: Present: distended, soft - Catheter Type: Urethral (Harper) - Extremities Exam Extremities exam: Present: normal capillary refill, normal inspection - Neurological Exam Additional comments: Sedated on vent - Skin Skin exam: Present: dry, pallor, warm Internal Medicine - CN: Reslt - Labs CBC & Chem 7: 03/03/19 13:01 03/03/19 13:05 Labs: Short CBC 03/03/19 03/03/19 Range/Units 03:55 13:01 WBC 16.9 H 31.2 H* D (4.3-11.1) K/mcL Hgb 11.0 L 14.4 D (12.9-16.9) g/dL Hct 36.4 L 48.9 (37.5-50.1) % Plt Count 122 L 173 (140-400) K/mcL Neutrophils # 26.8 H (1.6-8.9) K/mcL BMP 03/03/19 03/03/19 03:55 13:05 Sodium 135 L 134 L Potassium 5.2 H 6.1 H Chloride 108 H 103 Carbon Dioxide 15 L 20 L BUN 41 H 50 H Creatinine 2.32 H 3.20 H Glucose 244 H 352 H Calcium 6.8 L 7.4 L Cardiac Enzymes 03/03/19 Range/Units 13:05 Troponin I 0.45 H* (< 0.04) ng/mL Liver Function 03/03/19 Range/Units 10:53 Total Bilirubin 0.4 (0.3-1.0) mg/dL Direct Bilirubin 0.1 (0.0-0.2) mg/dL AST 26 (13-39) Units/L ALT 17 (7-52) Units/L Alkaline Phosphatase 89 (34-104) Units/L Albumin 3.4 L (3.5-5.7) g/dL - ABG Interpretation ABG results: ABG ABG pH 7.32 pH Units (7.32-7.45) 03/03/19 13:53 ABG pCO2 34 mmHg (35-45) L D 03/03/19 13:53 ABG pO2 96 mmHg (85-104) 03/03/19 13:53 ABG O2 Saturation 97 % (95-98) 03/03/19 13:53 PT/INR, D-dimer PT 12.6 Seconds (9.4-12.1) H 02/25/19 23:49 D-Dimer 2199 ng/mLFEU (0-500) H 02/25/19 23:49 - Impressions Impressions Head CT 03/02/19 15:59 IMPRESSION: No acute intracranial abnormality. Specifically, no evidence of acute hemorrhage. Mild generalized atrophy and [id number] chronic small vessel ischemic white matter disease. Air-fluid level in a mastoid air cell at the posterior right mastoid tip. This is a new finding from 11/27/2018. Correlate for signs of acute infection. D/ / Angel Gonzales MD / Angel Gonzales MD Interpreting Provider: Angel Gonzales MD X-Ray 03/03/19 08:15 IMPRESSION: Interval increasing size of air-filled dilated colon measuring up to 8 cm on today's exam in the left lower quadrant. Findings could be related to ileus or obstruction. D/ / 03/03/2019 09:39:20 Maddi George MD / Miri Mendieta Interpreting Provider: Maddi George MD Chest X-Ray 03/03/19 09:34 IMPRESSION: Endotracheal tube tip is 5.4 cm above the abran. Increasing airspace opacity in the medial right lung base either atelectasis or pneumonia. D/ / Maddi George MD / Maddi George MD Interpreting Provider: Maddi George MD X-Ray 03/03/19 09:56 IMPRESSION: Enteric tube tip and side port project over the stomach. D/ / Maddi George MD / Maddi George MD Interpreting Provider: Maddi George MD Echocardiogram Limited Views 03/03/19 13:18 Impressions: LVEF 35-40%. Normal LV chamber size. Mild concentric left ventricular hypertrophy. Atypical septal motion consistent with bundle branch block. Suboptimal study, consider repeat when HR better controlled. Left Ventricular Wall Motion: Rest Echo Findings The apex, apical inferior, mid inferior, basal inferior, apical anterior, mid anterior, basal anterior, apical septal, mid inferior septal, basal inferior septal, apical lateral, mid anterior lateral, basal anterior lateral, mid anterior septal, mid inferior lateral, basal anterior septal and basal inferior lateral bryant were hypokinetic. Findings: Study Quality * Technically sub-optimal due to poor echocardiographic windows. ECG Findings * Sinus tachycardia, bundle branch block. Left Ventricle * LVEF 35-40%. * Normal LV chamber size. * Mild concentric left ventricular hypertrophy. * Atypical septal motion consistent with bundle branch block. Aorta * Normally sized aortic root. Pericardium * The pericardium appears normal. Consult Discharge Plan - Plan Referrals: NONE,PCP [Primary Care Provider] - Palliative Quality Palliative Quality: Screen for Code Status: Yes, Screen for Goals of Care: Yes, Screen for Pain: NA, If Pain Regimen Started, Initiate Bowel Regimen: NA, Screen for Nausea/Vomitting: NA Code Status: 02/26/19 04:00 Resuscitation Status: Active [RES] Routine Comment: Resuscitation Status: Full Code 03/03/19 14:35 DNR [Resuscitation Status: Active] [RES] Routine Comment: Resuscitation Status: DNR-Comfort Care 03/03/19 16:25 DNR [Resuscitation Status: Active] [RES] Routine Comment: Resuscitation Status: DNR-Comfort Care-Arrest
--- NOTE | 2019-03-03 17:14 | Event Note ---
Date of Encounter: 03/03/19 Time of Encounter: 13:00 - Cardiology Event Note Pt was intubated am for respiratory distress, sinus tachy alternating with Afib RVR. Had several ATPs for Afibr RVR 160s 12:30s, then went to monomorphic VT for 8-9 seconds 12:45 which was treated by defib from ICD to sinus tachy. Shortly into slow VT 120s with hypotension. Pt code status per primary team "do everything after talking to family". So asked amio bolus and drip and synchronized cardioversion 200J x1 and pt back to sinus tachy 110s. Weak/vague pulse prompt 1 round of CPR with recovery of pulse, and pt remained in sinus tachy. Asked for ECG, STAT echo, serial trop and CKMB. ECG sinus tachy, old anterior and inferior MO. TTE EF 35-40%. Trop 0.4. K6, worsening JENN, leukocytosis A: Monomophic VT treated by ICD, slow VT treated by external synchronized DCCV, trigger likely septic shoock, metabolic derrangement Shock, septic primary and respiratory failure, hyperkalemia, worsening JENN on temp HD HFrEF EF 40%, NICMP s/p ICD Mild troponin elevation, type 2 likely Ho moderate Acute B/L LE DVT on heparin R: c/w amio drip management of septic shock, respiratory failure and metabolic derrangement -----initial consult----- 68yoCM ho HFrecEF NICMP s/p single chamber ICD, PE, COPD, LANCE. P/w AMS, dyspnea. Imp septic shock due to C diff colitis c/b JENN on CKD requiring temp HD, B/L acute DVT. Consulted for minimal trop 0.1 flat. No chest pain. ECG SR, LAD, old ant-sept MO. Tele frequent PACs, occasional PVCs. On levo and BiPAP, coarse BS, IR, cold feet. TTE EF 50%, LVH, mild RV dyskinesis, biAE, mod , mild-mod AR, mild MR/TR, mod PH. Limited echo poor windows unclear LVEF on BiPAP
[2019-03-03] MEDS: Piperacillin/Tazobactam 3.375 GM in 0.9 % Sodium Chloride Mini Bag 100 ML IVPB SCH ×2 (17:29→23:57)
[2019-03-03] MEDS ORDERED: Piperacillin/Tazobactam 3.375 GM in 0.9 % Sodium Chloride Mini Bag 100 ML IVPB SCH (18:00)
[2019-03-03] MEDS: Amiodarone Premix 360 MG/200 ML BAG IVC SCH (18:33)
[2019-03-03] MEDS: EPINEPHrine 5 MG in D5% in Water 250 ML IVC SCH (18:55)
[2019-03-03] MEDS ORDERED: *HR* Etomidate 20 MG/10 ML AMPUL IVP ONE (19:34)
[2019-03-03] MEDS ORDERED: *HR* Rocuronium Bromide 100 MG/10 ML VIAL IVC ONE (19:34)
[2019-03-03] MEDS ORDERED: *HR* Midazolam HCl 5 MG/5 ML VIAL IVP ONE (19:34)
[2019-03-03] MEDS: rOPINIRole 0.25 MG TABLET PO SCH (21:04)
[2019-03-03] MEDS: traZODone 50 MG TABLET PO SCH (21:05)
[2019-03-03] MEDS: Insulin DETEMIR 100 UNIT/ML X5UNITS SQ SCH (21:06)
[2019-03-04] MEDS: Insulin LISPRO 300 UNITS/3 ML VIAL SQ SCH ×5 (00:01→15:12)
[2019-03-04] MEDS: Artificial Tears SOLN 15 ML BOTTLE BOTH EYES SCH ×5 (00:02→15:56)
[2019-03-04] MEDS: *HR* Digoxin 0.5 MG/2 ML AMPUL IVP SCH ×2 (00:12→04:54)
[2019-03-04] MEDS: Norepinephrine 8 MG in D5% in Water 250 ML IVC SCH ×2 (00:34→09:37)
[2019-03-04] MEDS: PrismaSATE BGK 4/2.5 5,000 ML CRRT SCH ×10 (00:56→15:10)
[2019-03-04] MEDS: Dexmedetomidine HCl 400 MCG/100 ML MLS IVC SCH ×4 (02:22→13:30)
[2019-03-04] MEDS: Ipratropium/Albuterol Neb 3 ML IH SCH ×5 (03:37→15:29)
[2019-03-04 04:14] LABS: Red Cell Distribution Width 17.3 % (11.5-14.5)
[2019-03-04 04:15] LABS: Hematocrit 48.9 % (37.5-50.1); Hemoglobin 14.7 g/dL (12.9-16.9); Mean Corpuscular HGB Conc 30.1 g/dL (31.6-35.5); Mean Corpuscular Volume 86.4 fL (83.0-100.0); Mean Platelet Volume 11.4 fL (9.4-12.4); Nucleated Red Blood Cells 2.7 /100 WBC (0); Platelet Count 158 K/mcL (140-400); Red Blood Count 5.66 M/mcL (4.19-5.50); White Blood Count 25.2 K/mcL (4.3-11.1)
[2019-03-04 04:26] LABS: ABG Ionized Calcium 0.99 mmol/L (1.15-1.35)
[2019-03-04 04:41] LABS: Anisocytosis 1+ (Not Present); Lymphocytes # 1.5 K/mcL (0.6-4.6); Neutrophils # 21.2 K/mcL (1.6-8.9); Platelet Estimate Normal (Normal); Smudge Cells Present (Not Present)
[2019-03-04 04:48] LABS: Albumin/Globulin Ratio 1.6 (1.1-2.2); Bilirubin,Total 0.5 mg/dL (0.3-1.0); Calcium 7.6 mg/dL (8.6-10.3); Globulin 1.9 g/dL (2.4-3.5); Magnesium 2.6 mg/dL (1.6-2.6); Phosphorous 3.5 mg/dL (2.7-4.5); Potassium 4.7 mEq/L (3.5-5.1); Total Protein 4.9 g/dL (6.4-8.9)
[2019-03-04] MEDS: Heparin 25,000 UNIT/250 ML D5W 25,000 UNIT/250 ML IV.SOLN IVC SCH ×2 (04:54→12:26)
[2019-03-04 05:46] LABS: ABG Base Excess -4 mEq/L (-2 to 3); ABG HCO3 20 mEq/L (21-27); ABG Oxygen Saturation 99 % (95-98); ABG PCO2 30 mmHg (35-45); ABG PH 7.42 pH Units (7.32-7.45); ABG PO2 124 mmHg (85-104); ABG TCO2 21 mEq/L (20-26); Blood Gas Modality ASSIST CONTROL; Blood Gas PEEP 5 cm H2O; Blood Gas VT 500 cc
[2019-03-04] MEDS: Amiodarone Premix 360 MG/200 ML BAG IVC SCH (05:57)
[2019-03-04] MEDS: Budesonide/Formoterol 160/4.5 1 PUFF INH IH SCH (07:30)
--- NOTE | 2019-03-04 08:41 | Pulmonology Progress Note ---
Date of Encounter: 03/04/19 Time of Encounter: 07:00 Subjective Principal diagnosis: Septic shock Interval history: Angel Wright is a 68-year-old male who presented to the ED from nursing facility on 02/25/19 with complaints of AMS and shortness of breath for one day. PMH: PE, COPD, CHF, diabetes, recurrent pneumonia, anoxic brain injury, myocardial infarction. Other complaints included right lower extremity pain, nausea. No chest pain. EMS reported oxygen saturations in 70-80% range that corrected with oxygen administration. Vital signs on arrival significant for initial tachycardia at 117 and tachypnea at 24. Physical exam significant for diffuse rhonchi and crackles throughout lung carson. Initial labs significant for: elevated white count with left shift. Decreased PCO2 and HCO3 with pH WNL. Hyponatremia with elevated calculated osmolality. Hyperkalemia. Elevated BUN/creatinine from baseline. Estimated GFR at 23. Troponin 0.10> 0.072> 0.09. UA: Proteinuria, hematuria, glucosuria, moderate leukocyte esterase, many bacteria, few yeast. Blood cultures 2 on 02/26/19 negative. Urine culture grew pseudomonas aeruginosa MDRO. C. difficile toxin a and B on 02/27/19 negative. Imaging 02/25/19: EKG showed sinus rhythm and old inferior infarct 02/26/19: CT abdomen and pelvis showed pancolitis and probable cirrhosis. CXR showed bibasilar atelectasis and/or pneumonia. Repeat chest x-ray showed suspected pulmonary edema and increasing left lower lobe atelectasis or pneumonia. Venous duplex ultrasound showed acute thromboses of right popliteal, posterior tibial, and peroneal veins as well as left posterior tibial, peroneal veins. He was admitted to the general medical floor for acute on chronic respiratory failure, colitis, JENN, troponin elevation, hyperkalemia, sepsis. He was transferred to the ICU for septic shock. 03/04/19: Nursing staff reports removing fluid via Taryn. Reports runs of V. tach with any stimulus. Reports rate of 80s with sinus rhythm and occasional PVCs. Patient seen and examined at bedside. Objective PUL Vital signs: Last Vital Signs Temp 96.7 F L 03/04/19 04:00 Pulse 81 03/04/19 07:00 Resp 30 03/04/19 07:30 BP 84/63 03/04/19 07:30 Pulse Ox 96 03/04/19 07:30 Gen.: Middle-aged male. Intubated and sedated Skin: Good turgor. Pinpoint petechiae of bilateral forearms Eyes: Moist. Anicteric. Corneal reflex intact bilaterally Cardiac: Could not hear heart sounds despite gloving my own stethoscope secondar y to contact precautions. Monitor showed heart rate in the 80s with visual PVCs. Respiratory: Extremely distant. Upper anterior carson seem somewhat clear. GI: Obese. Listened for bowel sounds approximately 15 seconds and did not hear any Extremities: Capillary refill less than 2 seconds upper extremities bilaterally. Pitting edema to the knee bilaterally. Neuro: Anderson 6. Does not follow commands or respond to stimulus A/P Critical arrhythmia -Likely secondary to septic shock. -03/03/19: V. tach prompted AICD firing. converted to V. tach with a pulse. 300 mg amiodarone given with synchronized cardioversion. Converted to pulseless sinus rhythm. ACLS for PEA was begun. Epinephrine administered. First pulse check revealed perfusing pulse. Epinephrine drip initiated. Plan: Nursing reports V. tach on monitor with stimulation. Cardiology following. Amiodarone. Norepinephrine. Epinephrine. Septic shock -Secondary to fulminant C. difficile -SIRS 3/4 around the time of admission: temp, pulse 117, rr 24, WBC 29.1 -Febrile on 03/03/19 with MAXIMUM TEMPERATURE of 100.8 -MAP 61>57> 47 on 02/26/19 requiring norepinephrine Lab -Lactic acid WNL -Blood cultures 02/26/19 2 negative -Urine culture shows pseudomonas aeruginosa multidrug-resistant. Plan:Oral vancomycin and IV metronidazole day 6. Pip/Tazo day 2. Colistin day 2. Norepinephrine. Epinephrine. ID recommendations as of 03/03/19: CT chest, abdomen, pelvis. Consider ENT consult secondary to mastoiditis. Continue metronidazole, vancomycin, add Zosyn and colistin. Duration of treatment will depend on clinical picture. Acute on chronic respiratory failure with hypoxia -Likely secondary to heart failure versus pneumonia -History of COPD -Dyspnea chief complaint Labs -ABG 02/26/19 shows anion gap metabolic acidosis at gap of 20. Appropriately compensated CO2. concomitant metabolic alkalosis. -ABG 03/02/19 showed resolution of abnormalities. -A-a gradient elevated at 23.9 using ABG and FiO2 on 02/26/19. Expected AA gradient for age 20.5. Reports -CXR 02/26/19 showed suspected pulmonary edema and increasing left lower lobe atelectasis or pneumonia. -Solu-Medrol 40 mg IV every 12 hours for a total of 5 days completed. 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 DuoNeb. ABG shows non anion gap metabolic acidosis with respiratory alkalosis and pH WNL. Follow ABGs while on vent. Optimize ventilation settings. DVT -Lower extremity pain on admission -Venous Doppler ultrasound shows bilateral lower extremity DVTs Plan: Heparin drip Pancolitis -Secondary to Fulminant C. difficile -As seen on CT abdomen and pelvis -Stool C. difficile toxin B gene positive -septic shock as above Plan: Rectal Vanc. And IV Flagyl JENN on CK D - likely secondary to ATN and hypoperfusion from septic shock Plan: Nephrology consulted. On CRRT. Plan to transition to hemodialysis once stable. Continue fluid removal at this point. Acute metabolic encephalopathy -CT head 03/02/19 showed no acute abnormality Plan: Likely secondary to delirium. Tachycardia Plan: PE not ruled out as above. Metoprolol XL Hypothermia -Likely secondary to septic shock -Moderate -In the 80s per nursing Plan: Patient continuously monitored for arrhythmias. Logan cisneros. Heart failure with reduced ejection fraction -Echo 11/28/18: EF 50%. Moderate aortic stenosis. Moderate aortic regurg. -Repeat echo 03/03/19: EF 35-40%. Mild concentric LVH. Plan: Holding home furosemide. Fluid removal with CRRT. Nephrology recommends more aggressive fluid removal as tolerated. Cirrhosis -Likely cause of chronic hypotension. -Has received albumin. Plan: Midodrine 3 times a day. Diabetes Plan: 22 units long-acting insulin. high dose sliding scale and at bedtime. Will consider increasing long-acting to 25 units. Troponin elevation -Likely type II NSTEMI Plan: Cardiology following. Continue to monitor cardiac status Goals of care Plan: Code Status now DNR CC arrest Ventilator Settings Ventilator Settings: Ventilator Settings, Last 8 Hours Ventilator Tidal Volume 500 Setting Ventilator Tidal Volume 500 Setting Ventilator Tidal Volume 500 Setting Ventilator Tidal Volume 500 Setting Ventilator Tidal Volume 500 Setting Ventilator Tidal Volume 500 Setting Ventilator Tidal Volume 500 Setting Ventilator Tidal Volume 500 Setting Ventilator Tidal Volume 500 Setting Ventilator Tidal Volume 500 Setting Ventilator Respiratory Rate 30 Setting Ventilator Respiratory Rate 30 Setting Ventilator Respiratory Rate 30 Setting Ventilator Respiratory Rate 30 Setting Ventilator Respiratory Rate 30 Setting Ventilator Respiratory Rate 30 Setting Ventilator Respiratory Rate 30 Setting Ventilator Respiratory Rate 30 Setting Ventilator Respiratory Rate 30 Setting Ventilator Respiratory Rate 30 Setting Actual Respiratory Rate 30 Actual Respiratory Rate 30 Positive End Expiratory 5 Pressure Positive End Expiratory 5 Pressure Positive End Expiratory 5 Pressure Positive End Expiratory 5 Pressure Positive End Expiratory 5 Pressure Positive End Expiratory 5 Pressure Positive End Expiratory 5 Pressure Positive End Expiratory 5 Pressure Positive End Expiratory 5 Pressure Positive End Expiratory 5 Pressure Peak Inspiratory Airway 26 Pressure Peak Inspiratory Airway 23 Pressure Results - Laboratory Findings CBC and BMP: 03/04/19 04:00 03/04/19 04:00 ABG ABG pH 7.42 pH Units (7.32-7.45) 03/04/19 05:42 ABG pCO2 30 mmHg (35-45) L 03/04/19 05:42 ABG pO2 124 mmHg (85-104) H 03/04/19 05:42 ABG O2 Saturation 99 % (95-98) H 03/04/19 05:42 PT/INR, D-dimer PT 12.6 Seconds (9.4-12.1) H 02/25/19 23:49 D-Dimer 2199 ng/mLFEU (0-500) H 02/25/19 23:49 Abnormal lab findings: Abnormal lab results WBC 25.2 K/mcL (4.3-11.1) H 03/04/19 04:00 RBC 5.66 M/mcL (4.19-5.50) H 03/04/19 04:00 Hgb 11.0 g/dL (12.9-16.9) L 03/03/19 03:55 Hct 36.4 % (37.5-50.1) L 03/03/19 03:55 MCH 26.0 pg (28.0-33.3) L 03/04/19 04:00 MCHC 30.1 g/dL (31.6-35.5) L 03/04/19 04:00 RDW 17.3 % (11.5-14.5) H 03/04/19 04:00 Plt Count 122 K/mcL (140-400) L 03/03/19 03:55 Band Neutrophils % 10.0 % (0-4) H 03/04/19 04:00 Metamyelocytes % 2.0 % (0) H 03/03/19 13:01 Myelocytes % 6.0 % (0) H 03/04/19 04:00 Neutrophils # 21.2 K/mcL (1.6-8.9) H 03/04/19 04:00 Lymphocytes # 0.3 K/mcL (0.6-4.6) L 03/01/19 04:01 Monocytes # 3.2 K/mcL (0.0-1.3) H 02/27/19 05:45 Nucleated RBCs/100 WBC 2.7 /100 WBC (0) H 03/04/19 04:00 Reactive Lymphocytes Present (Not Present) A 02/28/19 04:02 Smudge Cells Present (Not Present) A 03/04/19 04:00 Platelet Estimate Slight Decrease (Normal) L 03/01/19 04:01 Polychromasia 1+ (Not Present) A 03/03/19 13:01 Anisocytosis 1+ (Not Present) A 03/04/19 04:00 Ovalocytes 1+ (Not Present) A 02/27/19 05:45 PT 12.6 Seconds (9.4-12.1) H 02/25/19 23:49 D-Dimer 2199 ng/mLFEU (0-500) H 02/25/19 23:49 Heparin Anti-Xa, Unfract 0.96 IU/mL (0.30-0.70) H 03/03/19 20:50 ABG pH 7.28 pH Units (7.32-7.45) L 03/03/19 13:00 ABG pCO2 30 mmHg (35-45) L 03/04/19 05:42 ABG pO2 124 mmHg (85-104) H 03/04/19 05:42 ABG HCO3 20 mEq/L (21-27) L 03/04/19 05:42 ABG Total CO2 19 mEq/L (20-26) L 03/03/19 13:53 ABG O2 Saturation 99 % (95-98) H 03/04/19 05:42 ABG Base Excess -4 mEq/L (-2 to 3) L 03/04/19 05:42 VBG pCO2 39 mmHg (41-51) L 02/28/19 11:47 VBG pO2 53 mmHg (25-50) H 02/28/19 11:47 Sodium 131 mEq/L (136-145) L 03/04/19 04:00 Potassium 6.1 mEq/L (3.5-5.1) H 03/03/19 13:05 Chloride 108 mEq/L (98-107) H 03/03/19 03:55 Carbon Dioxide 19 mEq/L (23-29) L 03/04/19 04:00 BUN 35 mg/dL (8-23) H 03/04/19 04:00 Creatinine 2.15 mg/dL (0.70-1.30) H 03/04/19 04:00 Est GFR ( Amer) 37 (> 60) L 03/04/19 04:00 Est GFR (Non-Af Amer) 31 (> 60) L 03/04/19 04:00 BUN/Creatinine Ratio 28 (6-26) H 02/26/19 07:18 Glucose 250 mg/dL (70-105) H 03/04/19 04:00 POC Glucose 151 mg/dL (70-99) H 03/04/19 00:00 Calculated Osmolality 305 (280-300) H 03/03/19 13:05 Lactic Acid 2.5 mmol/L (0.5-2.2) H 03/03/19 18:44 Calcium 7.6 mg/dL (8.6-10.3) L 03/04/19 04:00 Phosphorus 6.0 mg/dL (2.7-4.5) H 03/03/19 13:05 Magnesium 2.8 mg/dL (1.6-2.6) H 03/03/19 13:05 AST 50 Units/L (13-39) H 02/28/19 04:02 Creatine Kinase 339 Units/L (30-223) H 03/03/19 13:05 Troponin I 0.52 ng/mL (< 0.04) H* 03/04/19 01:05 B-Natriuretic Peptide 244 pg/mL (Less than 100) H 02/25/19 23:49 Serum Total Protein 4.9 g/dL (6.4-8.9) L 03/04/19 04:00 Albumin 3.0 g/dL (3.5-5.7) L 03/04/19 04:00 Globulin 1.9 g/dL (2.4-3.5) L 03/04/19 04:00 Albumin/Globulin Ratio 0.9 (1.1-2.2) L 02/28/19 04:02 Procalcitonin 2.65 ng/mL (0.00-0.15) H 03/03/19 11:45 Arterial Blood Ionized Calcium 0.99 mmol/L (1.15-1.35) L 03/04/19 04:22 Ur Specimen Adequacy See below A 02/26/19 01:44 Urine Clarity Turbid (Clear) A 02/26/19 01:44 Urine Protein 100 mg/dL (Neg-Trace) H 02/26/19 01:44 Urine Blood Large (Negative) H 02/26/19 01:44 Urine Bilirubin Moderate (Negative) H 02/26/19 01:44 Ur Leukocyte Esterase Moderate (Negative) H 02/26/19 01:44 Urine Microscopic RBC 15-30 per hpf (0-3) H 02/26/19 01:44 Urine Microscopic WBC 50-100 per hpf (0-3) H 02/26/19 01:44 Urine Bacteria Many per hpf (None-Few) H 02/26/19 01:44 Urine Yeast Few per hpf (None Seen) H 02/26/19 01:44 Ur Culture Indicated? YES (NO) A 02/26/19 01:44 Protein/Creatinin Ratio 1.03 mg/mg (0.00-0.20) H 02/27/19 11:10 Urine Total Protein 216 mg/dL (1-14) H 02/27/19 11:10 Nasal Screen MRSA (PCR) DETECTED (Not Detect) A 02/27/19 08:18 Stl C. diff Tox B Gene Positive (Negative) A 02/27/19 23:30 Vancomycin Trough 18 mcg/mL (5-10) H 02/27/19 05:45 - Microbiology Findings Microbiology Findings: Microbiology, Last 48 Hours 03/03/19 12:33 Blood Culture - Preliminary Peripheral Venipuncture Culture is incubating and being continuously monitored for growth. Final report to follow. 03/03/19 12:33 Blood Culture - Preliminary Peripheral Venipuncture Culture is incubating and being continuously monitored for growth. Final report to follow. 02/26/19 00:27 Blood Culture - Final Peripheral Venipuncture No growth. Final report. 02/25/19 23:57 Blood Culture - Final Peripheral Venipuncture No growth. Final report. - Clinical Findings Intake & Output: Intake & Output 03/03/19 03/04/19 03/04/19 23:59 07:59 15:59 Intake Total 19941.5 1338 / 1338 Output Total 597 / 597 Balance 1973 / 3732.5 741 / 741 Weight 159.8 kg 159.8 kg Consult Discharge Plan - Plan Referrals: NONE,PCP [Primary Care Provider] -
[2019-03-04] MEDS ORDERED: predniSONE 10 MG TABLET PO SCH (09:00)
[2019-03-04] MEDS: Aspirin 81 MG TAB.CHEW PO SCH (09:08)
[2019-03-04] MEDS: Fluticasone Propionate Nasal 50 MCG/SPRAY BOTTLE NS SCH (09:08)
[2019-03-04] MEDS: MetroNIDAZOLE 500 MG/100 ML 500 MG/100 ML BAG IVPB SCH ×2 (09:37→15:12)
[2019-03-04] MEDS: Piperacillin/Tazobactam 3.375 GM in 0.9 % Sodium Chloride Mini Bag 100 ML IVPB SCH ×2 (09:38→15:14)
[2019-03-04] MEDS: Vancomycin Oral Soln 125 MG/2.5 ML UDC PO SCH ×3 (09:38→17:04)
[2019-03-04] MEDS: Pantoprazole 40 MG VIAL IVP SCH (09:38)
[2019-03-04] MEDS: Chlorhexidine Rinse 15 ML MOUTHWASH MM SCH (09:38)
[2019-03-04] MEDS: Neosporin OINT 15 GM TUBE TP SCH (09:40)
--- NOTE | 2019-03-04 10:55 | Nephrology Progress Note ---
Date of Encounter: 03/04/19 Time of Encounter: 09:00 - Assessment and Plan (1) Acute kidney injury superimposed on chronic kidney disease Status: Acute Continue CVVHDF at 1500/1500 for Prismasate and Replacement fluid, respectively: ED was 19, but his indicators of clearance were good with improved hyperkalemia and lowering of the hyperphosphatemia. In terms of fluid removal, he was able to reach net even over the last several hours since starting Taryn. I recommend aiming for Net +25-50mL/hr as tolerated by hemodynamics (BP and HR and pressor requirements). Updated the INTAKE SPECIALIST. I recommend continuing to follow a renal protective strategy with strict I's and O's, daily weights, avoidance of nephrotoxic agents, and renal dosing. This critically ill patient required complex medical decision making plus highly detailed evaluation and management plus complex medical decision making; he required a critical care time of approximately 38 minutes including chart review, [id number] exam, the logistics of discussing/titrating his Taryn and documentation. 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 (6) Metabolic acidosis Status: Acute On Taryn to control the metabolic acidosis. Subjective Principal diagnosis: Septic shock Interval history: The patient was seen and examined on March 04, and he remains critically ill on Taryn. I reviewed his labs, vital signs, medication list, progress notes, and event notes as well as imaging; I also discussed his care with the INTAKE SPECIALIST. His Taryn filter has not clotted yet since starting Taryn, and so far he appears to be tolerating Taryn with a fluid removal rate of approximately net even. Objective - Vital Signs Vital signs: Vital Signs Temp Pulse Resp BP Pulse Ox 03/04/19 10:00 91 F L 79 31 80/63 100 03/04/19 09:48 30 80/63 100 03/04/19 09:00 91.1 F L 80 30 90/46 03/04/19 08:00 90.4 F L 77 21 84/66 94 03/04/19 07:30 30 84/63 96 03/04/19 07:00 81 30 84/63 94 03/04/19 06:00 83 30 84/62 95 03/04/19 05:00 85 31 91/66 95 03/04/19 04:00 96.7 F L 86 31 100/70 96 03/04/19 03:38 30 101/70 99 03/04/19 03:00 86 30 95/67 100 03/04/19 02:00 89 31 139/77 99 03/04/19 01:00 88 30 119/74 98 03/04/19 00:00 96.7 F L 92 31 123/72 98 03/03/19 23:00 108 30 109/74 100 03/03/19 22:00 106 30 110/74 100 03/03/19 21:55 32 111/74 100 03/03/19 21:00 108 32 96/67 98 03/03/19 20:18 31 100/70 96 03/03/19 20:00 97.8 F 105 31 105/68 98 03/03/19 19:00 99 31 97/63 96 03/03/19 18:17 33 107/66 97 03/03/19 18:00 105 33 135/75 97 03/03/19 17:00 103 32 105/63 96 03/03/19 16:00 100.2 F H 109 31 91/58 96 03/03/19 15:00 103 31 105/58 96 03/03/19 14:00 104 32 99/61 94 03/03/19 13:00 131 25 110/68 88 03/03/19 12:00 100.8 F H 149 22 93/66 92 03/03/19 11:00 152 24 94/68 96 03/03/19 10:57 23 95/68 95 Intake and Output 03/03/19 03/04/19 03/04/19 23:59 07:59 15:59 Intake Total 1994.5 1338 / 1538 200 / 1538 Output Total 597 / 872 275 / 872 Balance 1973 / 3732.5 741 / 666 -75 / 666 Intake: IV Fluids 19941.5 1338 / 1478 140 / 1478 PrismaSATE BGK 4/2.5 5,000 ML @ 0 / 0 1500 mls/hr CRRT CONT [facility] Rx#: [id number] Amiodarone Drip Premix 360mg/ 200 / 200 200 / 200 200mL 360 mg In 200 ml @ 0.5 MG /MIN 16.667 mls/hr IVC CONT [facility] Rx#:[id number] Precedex Premix 400 mcg In 100 170 / 700 200 / 300 100 / 300 ml @ 0.2 MCG/KG/HR 7.65 mls/hr IVC .Q13H5M [facility] Rx#:[id number] EPINEPHrine 5 MG In Dextrose 5% 326 / 502 137 / 137 250 ML @ 1 MCG/MIN 3.06 mls/hr IVC CONT [facility] Rx#:[id number] Heparin 25,000 UNIT/250 ML D5W 151 / 407.4 25 / 25 25,000 unit In 250 ml @ 14 UNIT /KG/HR 20.829 mls/hr IVC . Q12H1M [facility] Rx#:[id number] Levophed 8 MG In Dextrose 5% 258 / 258 476 / 516 40 / 516 250 ML @ 5 MCG/MIN 9.675 mls/hr IVC CONT [facility] Rx#:[id number] Diprivan 1,000 mg In 100 ml @ 5 190 / 300 100 / 100 MCG/KG/MIN 4.794 mls/hr IVC . [id number] [facility] Rx#:[id number] Flagyl Premix 500 MG/100 ML 500 100 / 300 100 / 100 mg In 100 ml @ 100 mls/hr IVPB Q8HR [facility] Rx#:[id number] Zosyn 3.375 GM In 0.9 % Sodium 100 / 100 100 / 100 Chloride (Mini-Bag +) 100 ML @ 25 mls/hr IVPB Q8H [facility] Rx#: [id number] Vancocin 2,000 MG In 0.9 % 500 / 500 Sodium Chloride 500 ML @ 250 mls/hr IVPB ONCE ONE Rx#: [id number] Oral 0 / 0 0 / 0 0 / 0 Free Water 60 / 60 Output: Catheter 5 / 5 / 10 Gastric Drainage 50 / 50 Fluid Removed by Prismaflex 5 / -2 592 / 812 220 / 812 Other: Weight 159.8 kg 159.8 kg 159.8 kg Blood Glucose* 208 151 146 Patient Weight 03/04/19 23:59 Weight 159.8 kg - General Appearance General appearance: Present: well-developed, sedated on ventilator, intubated, fatigue, frail EENT: Present: mucous membranes moist Additional Comments: Fixed appearing pupils bilaterally Neck: Present: no JVD, supple Respiratory: Present: course breath sounds Cardiology: Present: edema, normal S1, normal S2 Dialysis Vascular Access: Venous Catheter (right sided IJ temporary HD catheter with mild ozzing noted on dressing) Gastrointestinal: Present: normoactive bowel sounds, no tenderness, no guarding Integumentary: Present: cool/clammy, ecchymotic Neurologic: Present: obtunded Musculoskeletal: Present: cyanosis - Lab 03/04/19 04:00 03/04/19 04:00 Most recent lab results 03/04/19 03/04/19 04:00 05:42 ABG pH 7.42 ABG pCO2 30 L ABG pO2 124 H ABG HCO3 20 L ABG O2 Saturation 99 H Calcium 7.6 L Phosphorus 3.5 Magnesium 2.6 Consult Discharge Plan - Plan Referrals: NONE,PCP [Primary Care Provider] -
[2019-03-04] MEDS: Vancomycin 500 MG, Sodium Chloride IRRigation 250 ML RC SCH (10:58)
[2019-03-04] MEDS ORDERED: Colistin (Colistimethate) 150 MG in 0.9 % Sodium Chloride 50 ML IVPB ONE (14:00)
--- NOTE | 2019-03-04 14:07 | Event Note ---
Date of Encounter: 03/04/19 Time of Encounter: 14:04 I was asked by the family to discuss goals of care. There are multiple family members, including the patient's /POA. The bedside nurse was also present. I discussed the patient's clinical course and the severity of his illness. I discussed the patient's overall poor prognosis. The family was aware of the patient's poor prognosis. They reported that he had been in a fci for over a year and was very frustrated with his lack of independence prior to this hospitalization. They report that he would not want ongoing aggressive care in the light of his poor prognosis. For this reason, they requested that his CODE STATUS be changed to DNR CC, and that we transition to comfort measures only. CODE STATUS changed to DNR CC. Plans for discontinuation of hemodialysis, vasopressors, and mechanical ventilation. The family expressed understanding.
[2019-03-04] MEDS: EPINEPHrine 5 MG in D5% in Water 250 ML IVC SCH (15:14)
[2019-03-04 15:56] VITALS: BP 80/61
[2019-03-04] MEDS ORDERED: Colistin (Colistimethate) 150 MG VIAL IVPB SCH (16:00)
[2019-03-04] MEDS ORDERED: *HR* FentaNYL (PF) 100 MCG/2 ML VIAL ONE (16:26)
[2019-03-04] MEDS ORDERED: *HR* LORazepam 2 MG/ML VIAL ONE (16:27)
[2019-03-04] MEDS ORDERED: *HR* LORazepam 2 MG/ML VIAL IVP PRN (17:01)
[2019-03-04] MEDS ORDERED: Artificial Tears SOLN 15 ML BOTTLE BOTH EYES PRN (17:01)
[2019-03-04] MEDS ORDERED: *HR* FentaNYL (PF) 100 MCG/2 ML VIAL IVP PRN (17:01)
[2019-03-04] MEDS ORDERED: *HR* Amiodarone 150 MG/3 ML VIAL IVPB ONE (19:34)
[2019-03-04] MEDS ORDERED: *HR* Norepinephrine 4 MG/4 ML VIAL IVC ONE (19:34)
[2019-03-04] MEDS ORDERED: *HR* EPINEPHrine 1 MG/10 ML SYRINGE IVP ONE (19:34)
[2019-03-04] MEDS ORDERED: *HR* Amiodarone Premix 360 MG/200 ML BAG IVC ONE (19:34)
[2019-03-04] MEDS ORDERED: Aminoglycoside Consult 1 EACH MC ONE (19:34)
[2019-03-04] MEDS ORDERED: D5% in Water 250 ML IV BAG IV ONE (19:34)
[2019-03-04] MEDS ORDERED: Artificial Tears SOLN 15 ML BOTTLE BOTH EYES SCH (20:00)
--- NOTE | 2019-03-05 09:12 | Death Note ---
Discharge Sum: Summary - Date and Time Date of admission: 02/26/19 04:00 Date of : 03/04/19 Time of : 19:35 - Summary Details: Causes of : * Septic shock * Acute on chronic respiratory failure * Acute renal failure * Clostridium difficile colitis The patient was originally admitted to the hospital for hypoxia, renal failure, and Clostridium difficile colitis. He had been on the hospital floors, but he deteriorated from a hemodynamic, respiratory, and mental status standpoint. He developed hemodialysis dependent renal failure. He required vasopressor support for septic shock. He was intermittently dependent on noninvasive ventilation, but he ultimately required endotracheal intubation. Despite aggressive care, he continued to deteriorate. He developed a wide complex tachycardia associated with cardiac arrest that required brief CPR on 03/03/2019. Given the patient's poor overall prognosis, goals of care were discussed with the family intermittently throughout his hospitalization. On 03/04/2019, the family decided to transition to comfort measures only. The patient shortly after withdrawal of care on 03/04/2019 at 1935. - Additional Data Attending physician: Nick George MD Discharge Sum: Diag - PCOD Probable Cause of : Septic shock Discharge Sum: Prov - Provider Primary care physician: PCP NONE Consults: 02/26/19 01:55 Consult to Surgery [CONS] Stat Consulting Provider: Brijesh Harris Reason for Consult: Pseudomembranous colitis with white blood cell count of 29 Time Notified: 01:55 Call Completed: No 02/26/19 15:21 Consult to Cardiology [CONS] Stat Comment: Consulting Provider: Cardiology Laughlin Reason for Consult: Elvated s/p troponin with recent PA Call Completed: Yes 02/27/19 07:16 Consult to Pulmonology [CONS] Stat Consulting Provider: Pulm Crit Care & Sleep Kayy Reason for Consult: Pt is in septic shock with on Levophed drip. Call Completed: Yes 02/27/19 07:47 Consult to Nephrology [CONS] Routine Consulting Provider: Kidney Laughlin/CINTHIA/EZEKIEL/ALINE Reason for Consult: hyperkalemia, anuric, worsening renal function Call Completed: Yes 02/27/19 09:43 Consult to Interventional Radiology [CONS] Routine Consulting Provider: Radiology Interventional Cols Reason for Consult: Temp dialysis catheter for CRRT Call Completed: No 03/03/19 07:54 Consult to Infectious Diseases [CONS] Routine Consulting Provider: Infectious Disease Kayy Reason for Consult: Has C. difficile colitis has grown MDRO Pseudomonas multiple times unsure of colonization or contributory. C. difficile colitis treatment ongoing but clinically not improving. Call Completed: No 03/03/19 08:15 Consult to Palliative Care [CONS] Routine Comment: Consulting Provider: Palliative Care Laughlin Reason for Consult: Goals of care Call Completed: Yes
--- NOTE | 2019-03-06 17:05 | Electrocardiograph Report ---
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
== END 2019-03-04 19:35 | disposition expired | DRG 871 ==
LOC: EMEROOARM 23:39 → 2NNU 23:39 → SUATTDRO 02-26 04:00 → ICNU 02-26 22:14
PROVIDERS: ADMIT Internal Medicine; ATTEND Family Medicine